=== PATIENT | female | born 1940 | race Caucasian/White ===

== ENCOUNTER → 2017-06-26 09:49 | Outpatient (CLI) | payer OTHER, MEDICARE, SELFPAY ==
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
== END ==
PROVIDERS: Family Provider Family Medicine; PCP Family Medicine; Visit Provider Family Medicine
DX: T14.8XXA Other injury of unspecified body region, initial encounter (principal); V89.2XXA Person injured in unspecified motor-vehicle accident, traffic, initial encounter
CPT/HCPCS: 76700

== ENCOUNTER → 2017-07-04 07:51 | Outpatient (CLI) | payer OTHER, MEDICARE, SELFPAY ==
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
[2017-07-04 08:11] LABS: CREATININE FINGERSTICK 1.2 mg/dL (0.55-1.02)
== END ==
PROVIDERS: Family Provider Family Medicine; PCP Family Medicine; Visit Provider Family Medicine
DX: R93.5 Abnormal findings on diagnostic imaging of other abdominal regions, including retroperitoneum (principal); Z01.812 Encounter for preprocedural laboratory examination
CPT/HCPCS: 74160; Q9967

== ENCOUNTER → 2017-08-04 10:57 | Outpatient (CLI) | payer MEDICARE, OTHER, SELFPAY ==
--- NOTE | 2017-08-04 11:03 | RAD_ITS ---
STUDY: X-RAY - LUMBAR SPINE REASON FOR EXAM: Female, 77 years old. Chronic low back pain TECHNIQUE: 5 view(s) of the lumbar spine were obtained. COMPARISON: X-ray 08/17/12 FINDINGS: There is dextroscoliosis. There is multilevel marked degenerative disc disease. There is no subluxation. There is no fracture. The SI joints are intact. There is calcification of the abdominal aorta. RAD/L/S Spine Min 4 Views IMPRESSION: Dextroscoliosis with marked multilevel degenerative disease Electronically Signed: James Hunter MD at 11:21 EDT Tel , Service support ,
== END ==
PROVIDERS: Family Provider Family Medicine; PCP Family Medicine; Visit Provider Anesthesiology Pain Medicine
DX: M54.5 Low back pain (principal)
CPT/HCPCS: 72110

== ENCOUNTER 2017-08-04 17:23 | Observation (INO) | payer MEDICARE, OTHER, SELFPAY ==
[2017-08-04 17:23] VITALS: BP 132/78; PULSE 123; RESP 20; TEMP 36.8; O2SAT 97; BMI 31.4
--- NOTE | 2017-08-04 17:53 | EKG12_ITS ---
Test Reason : SOB Blood Pressure : / mmHG Vent. Rate : 112 BPM Atrial Rate : 112 BPM P-R Int : 148 ms QRS Dur : 078 ms QT Int : 328 ms P-R-T Axes : 060 015 024 degrees QTc Int : 447 ms Sinus tachycardia Otherwise normal ECG Confirmed by ROSI LEA, ZARIA ([id number]), online content editor CORINNE CERRATO ([id number]) on 08/08/2017 1:39:40 PM Referred By: REUBEN Confirmed By:ZARIA ARANDA MD
--- NOTE | 2017-08-04 17:55 | RAD_ITS ---
STUDY: X-RAY CHEST REASON FOR EXAM: Female, 77 years old. Chest pain and shortness of breath. TECHNIQUE: Single AP portable view of the chest. COMPARISON: Prior chest radiograph of December 10, 2016 FINDINGS: The lungs are clear and expanded. There is no demonstrated pleural abnormality. Normal size heart. Normal mediastinum and brendan. Normal visualized pulmonary arteries. Normal visualized aortic arch and descending thoracic aorta. There are diffuse degenerative changes of the visualized thoracic spine. Normal visualized ribs, clavicles, and shoulders. There is no demonstrated abnormality of the visualized soft tissue structures of the upper abdomen. RAD/Chest 1 View (Portable) IMPRESSION: No acute cardiopulmonary findings or changes. Electronically Signed: Salma Meyers MD at 18:22 EDT , Service support ,
[2017-08-04] MEDS: Aspirin 81 MG TAB.CHEW 324 MG PO (18:06)
[2017-08-04 18:37] LABS: Absolute Lymphocyte Count 1.54 X10^3/ul (0.83-4.51); Absolute Neutrophil Count 10.2 X10^3/uL (2.0-7.7); Basophil# 0.01 X10^3/uL; Basophil% 0.1 % (0-1); Eosinophil# 0.15 X10^3/uL; Eosinophils% 1.2 % (0-5); Hematocrit 42.1 % (37-47); Hemoglobin 14.2 g/dl (12.0-15.0); Lymphocyte # 1.54 X10^3/ul (4.0); Lymphocyte % 11.9 % (19-41); Mean Corp Hgb Conc 33.7 g/gl (32-36); Mean Corpuscular Hgb 30.6 pg (27.0-32.0); Mean Corpuscular Volume 90.7 fL (81-99); Mean Platelet Vol. 9.5 fl (6.2-12.0); Monocyte# 0.93 X10^3/uL; Monocyte% 7.2 % (0-10); Neutrophil # 10.22 X10^3/uL (2.7-7.7); Neutrophil % 79.2 % (47-70); Platelet Count 216 K/mm3 (150-450); RBC Distribution Width CV 14.4 % (11.6-14.6); RBC Distribution Width SD 47.9 fl (35.1-43.9); Red Blood Count 4.64 M/mm3 (4.2-5.4); White Blood Count 12.9 K/mm3 (4.4-11.0)
[2017-08-04 18:38] LABS: POSITIVE COUNT NO; POSITIVE DIFFERENTIAL NO; POSITIVE MORPHOLOGY NO
[2017-08-04 18:55] LABS: D-Dimer Quantitative (DVT/PE) 0.77 FEU/ug/m (0.27-0.49)
[2017-08-04 19:01] LABS: Anion Gap 8 (5-15); BUN 33 mg/dL (7-18); BUN/Creat Ratio 24.6 RATIO (10-20); Calcium,Total 9.3 mg/dL (8.5-10.1); Chloride 106 mmol/L (98-107); Creatinine, Serum 1.34 mg/dL (0.55-1.02); EST Glomerular Filtration Rate 41 mL/min (>60); Est Glom Filt Rate - Afr Amer 49 mL/min (>60); Estimated Creatinine Clearance 27.81 ml/min; Glucose 148 mg/dL (74-106); Potassium 3.5 mmol/L (3.5-5.1); Sodium Level 141 mmol/L (136-145)
--- NOTE | 2017-08-04 19:11 | CT_ITS ---
STUDY: CTA CHEST REASON FOR EXAM: Female, 77 years old. Elevated d-dimer RADIATION DOSAGE (If Supplied By Facility): CTDIvol = ( 8.79 ) mGy, DLP = ( 273.75 ) mGycm TECHNIQUE: The examination was performed with the intravenous administration of 100 ml of Isovue 370 contrast material. Post-processing of the angiographic images was performed, with multiplanar reformation and 3D reconstruction. Individualized dose optimization techniques were used for this CT. COMPARISON: Chest radiograph from the same day FINDINGS: Normal enhancement of the main pulmonary artery and right and left pulmonary arteries without filling defects. Normal enhancement of the bilateral peripheral pulmonary arteries without evidence of filling defects. There are minimal vascular calcifications in the thoracic aorta. There is no demonstrated aortic dissection. The heart is normal in size. There are calcifications of the coronary arteries. There is a 1.2 cm nodule in the thyroid isthmus. The hilar regions are unremarkable. The airways are unremarkable. There are minimal increased lung markings in the dependent aspects of both lungs. There are no focal airspace opacities. There is no demonstrated pleural abnormality. The soft tissues are unremarkable. There are marked degenerative changes in the visualized spine. There are old rib fractures on the right. There is an old sternal fracture. There are no significant abnormalities in the visualized upper abdomen. CT/CTA Chest W/WO Contrast IMPRESSION: There is no evidence of pulmonary embolism, aortic aneurysm or aortic dissection. There is minimal dependent atelectasis in both lungs. There are no focal airspace opacities. There is no pleural effusion or significant lymphadenopathy. Electronically Signed: Damari Cao MD at 20:30 EDT Tel Direct: [phone], Service support ,
[2017-08-04 20:00] VITALS: BP 145/76; O2SAT 95
--- NOTE | 2017-08-04 21:31 | PCM.HP.STD ---
Problem List (1) Unstable angina Status: Acute (2) Chronic back pain Status: Chronic Qualifiers: Back pain location: low back pain Back pain laterality: unspecified Sciatica presence: unspecified whether sciatica present Qualified Code(s): M54.5 - Low back pain; G89.29 - Other chronic pain (3) CAD (coronary artery disease) Status: Chronic (4) Hyperlipidemia Status: Chronic (5) Hypertension Status: Chronic History of Present Illness Date of Admission: 08/04/17 Chief Complaint: chest pain The patient is a 77 year old F who is in her normal state of health but then started having chest pain beginning on the . Chest pain was worse with exertion, such as with activity and chores. Got better but not completely resolved with rest. Pain was midsternal and nonradiating. Patient states that she would also have some associated dizziness and no shortness of breath. Patient denies having any history of this in the past. Patient presented to the emergency room and had a d-dimer that was 0.77. Patient underwent a CT angiogram of the chest that showed no pulmonary embolism did show some dependent atelectasis. His chest pain is still there but much improved and she was experiencing with exertion. For the past week or so, patient has had an upper respiratory viral infection but had been improving during that time. [] Past Medical History Past Medical History (Chronic Problems): Chronic Problems Chronic back pain (Chronic) CAD (coronary artery disease) (Chronic) Hypertension (Chronic) Hyperlipidemia (Chronic) Allergies No Known Allergies Allergy (Verified 08/04/17 17:23) Home Medications: Ambulatory Orders Medication Instructions Recorded Alendronate Sodium 70 mg PO QWEEK 07/09/16 Atenolol [Tenormin] 25 mg PO DAILY 07/09/16 Isosorbide Mononitrate [Isosorbide 60 mg PO DAILY 07/09/16 Mononitrate ER] Amlodipine [Norvasc] 10 mg PO DAILY 12/10/16 Aspirin [Aspirin, Baby] 81 mg PO DAILY@0800 12/10/16 Benazepril HCl [Benazepril HCl] 40 mg PO DAILY 12/10/16 Hydrochlorothiazide [Hctz] 25 mg PO DAILY 12/10/16 Meloxicam [Meloxicam] 15 mg PO DAILY 12/10/16 Simvastatin 20 mg PO DAILY 12/10/16 Baclofen 5 - 10 mg PO QHS PRN 08/04/17 Hydrocodone Bitart/Apap 5-325 1 tablet PO BID PRN 08/04/17 [[place] 5MG-325MG] Surgical History: - - Ankle surgery for a fracture Psychiatric 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 Denies: Edema Respiratory: Reports: Shortness of breath upon exertion. Denies: Cough Gastrointestinal: Reports: Abdominal Pain - Did have some left lower quadrant abdominal pain but that is since resolved., Nausea. Denies: Vomiting Genitourinary: Denies: Dysuria, Hematuria Musculoskeletal: Denies: Joint Pain, Joint Tenderness Skin: Denies: Rash, Wounds Neurological: Denies: Numbness, Tingling, Focal weakness Psychiatric: Denies: Anxiety, Depression Endocrine: Denies: Change in Body Habitus, Heat/ Cold Intolerance Hematologic/ Lymphatic: Denies: Easy Bruising, Easy Bleeding, Hx of blood clot VTE Information - Inpt Only VTE Present on Admission: No VTE Pharm Prophylaxis ordered?: Yes Patient Problems: Active and Suspected Problems Unstable angina (Acute) - Physical Exam General: Alert, Cooperative, No apparent distress HEENT: Atraumatic, Normocephalic Neck: No Nodes, Thyroid Normal Size and Texture Lungs: Clear to auscultation, Normal air movement, No rhonchi, No wheeze Cardiovascular: Regular rate, Regular Rhythm, Normal S1, Normal S2, No murmurs Abdomen: Bowel Sounds Present, Soft, Non Tender, Non-Distended Extremities: No edema, No Calf Tenderness Skin: No rashes, No breakdown Musculoskeletal: No Tenderness to Palpation of Joints or Extremities, No Muscle Wasting Neurological: Neuro grossly intact, Muscle tone normal, - - No clonus Psych/Mental Status: Normal Affect, Appropriate, - - Did become tearful at one point during our encounter. Vital Signs Temp Pulse Resp BP Pulse Ox 36.8 C 123 H 20 H 145/76 H 95 08/04/17 17:23 08/04/17 17:23 08/04/17 17:23 08/04/17 20:00 08/04/17 20:00 Oxygen Delivery Method Room Air Weight: 77.836 kg Body Mass Index (BMI) 31.4 Laboratory Tests Past 24 Hrs 08/04/17 08/04/17 08/04/17 18:20 18:20 18:20 WBC 12.9 H RBC 4.64 Hgb 14.2 Hct 42.1 MCV 90.7 MCH 30.6 MCHC 33.7 RDW 14.4 RDW Differential 47.9 H Plt Count 216 MPV 9.5 Immature Gran % (Auto) 0.400 Neut % (Auto) 79.2 H Lymph % (Auto) 11.9 L [place] % (Auto) 7.2 Eos % (Auto) 1.2 Baso % (Auto) 0.1 Absolute Neuts (auto) 10.2 H Absolute Lymphs (auto) 1.54 Total Counted Not Reportable D-Dimer Quant (PE/DVT) 0.77 H* Sodium 141 Potassium 3.5 Chloride 106 Carbon Dioxide 27.0 Anion Gap 8 BUN 33 H Creatinine 1.34 H Estim Creat Clear Calc 27.81 Est GFR (MDRD) Af Amer 49 L Est GFR (MDRD) Non-Af 41 L BUN/Creatinine Ratio 24.6 H Glucose 148 H Calcium 9.3 Troponin I < 0.02 TSH 0.50 Clinical Impression(s) from Imaging Studies Chest X-Ray 08/04/17 17:55 IMPRESSION: No acute cardiopulmonary findings or changes. Electronically Signed: Salma Meyers MD at 18:22 EDT , Service support , Chest CTA 08/04/17 19:11 IMPRESSION: There is no evidence of pulmonary embolism, aortic aneurysm or aortic dissection. There is minimal dependent atelectasis in both lungs. There are no focal airspace opacities. There is no pleural effusion or significant lymphadenopathy. Electronically Signed: Damari Cao MD at 20:30 EDT Tel Direct: [phone], Service support , Assessment/Plan Active and Suspected Problems Unstable angina (Acute) 1. Unstable angina Patient improved and her workup, thus far has been negative Plan is for a stress test on the In the meantime, we will cycle troponins. Patient will have nitroglycerin as needed as well as morphine. Check lipid panel in the morning. She did receive aspirin in the emergency room. Patient takes aspirin 81 mg daily at home, which will be continued. 2. Chronic kidney disease stage III versus acute kidney injury Patient's creatinine is 1.34 with baseline appear to be 0.21 December 2016 Since patient did receive a contrast dye load for the CT angiogram, will give her some IV fluids. Reassess creatinine in the morning. 3. DVT prophylaxis will be with low molecular weight heparin. But will be initiated on the if patient's stress test is abnormal and requires further hospitalization. 4. Advanced directives Discussed CPR as well as tracheal intubation with the patient. Patient states that she wishes to be DNR Comfort Care arrest and is okay with short-term intubation. I told her that I will certainly order that and but I did recommend that she consider resending it if she does require a left heart catheterization for a potential of developing arrhythmia during her catheterization. She said that she would be okay with that if necessary. Code Visit OBSV E&M: 61096 Initial observation care L3
--- NOTE | 2017-08-04 21:39 | HP.PCM_ITS ---
Problem List (1) Unstable angina Status: Acute (2) Chronic back pain Status: Chronic Qualifiers: Back pain location: low back pain Back pain laterality: unspecified Sciatica presence: unspecified whether sciatica present Qualified Code(s): M54.5 - Low back pain; G89.29 - Other chronic pain (3) CAD (coronary artery disease) Status: Chronic (4) Hyperlipidemia Status: Chronic (5) Hypertension Status: Chronic History of Present Illness Date of Admission: 08/04/17 Chief Complaint: chest pain The patient is a 77 year old F who is in her normal state of health but then started having chest pain beginning on the . Chest pain was worse with exertion, such as with activity and chores. Got better but not completely resolved with rest. Pain was midsternal and nonradiating. Patient states that she would also have some associated dizziness and no shortness of breath. Patient denies having any history of this in the past. Patient presented to the emergency room and had a d-dimer that was 0.77. Patient underwent a CT angiogram of the chest that showed no pulmonary embolism did show some dependent atelectasis. His chest pain is still there but much improved and she was experiencing with exertion. For the past week or so, patient has had an upper respiratory viral infection but had been improving during that time. [] Past Medical History Past Medical History (Chronic Problems): Chronic Problems Chronic back pain (Chronic) CAD (coronary artery disease) (Chronic) Hypertension (Chronic) Hyperlipidemia (Chronic) Allergies No Known Allergies Allergy (Verified 08/04/17 17:23) Home Medications: Ambulatory Orders Medication Instructions Recorded Alendronate Sodium 70 mg PO QWEEK 07/09/16 Atenolol [Tenormin] 25 mg PO DAILY 07/09/16 Isosorbide Mononitrate [Isosorbide 60 mg PO DAILY 07/09/16 Mononitrate ER] Amlodipine [Norvasc] 10 mg PO DAILY 12/10/16 Aspirin [Aspirin, Baby] 81 mg PO DAILY@0800 12/10/16 Benazepril HCl [Benazepril HCl] 40 mg PO DAILY 12/10/16 Hydrochlorothiazide [Hctz] 25 mg PO DAILY 12/10/16 Meloxicam [Meloxicam] 15 mg PO DAILY 12/10/16 Simvastatin 20 mg PO DAILY 12/10/16 Baclofen 5 - 10 mg PO QHS PRN 08/04/17 Hydrocodone Bitart/Apap 5-325 1 tablet PO BID PRN 08/04/17 [[place] 5MG-325MG] Surgical History: - - Ankle surgery for a fracture Psychiatric History: 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 Denies: Edema Respiratory: Reports: Shortness of breath upon exertion. Denies: Cough Gastrointestinal: Reports: Abdominal Pain - Did have some left lower quadrant abdominal pain but that is since resolved., Nausea. Denies: Vomiting Genitourinary: Denies: Dysuria, Hematuria Musculoskeletal: Denies: Joint Pain, Joint Tenderness Skin: Denies: Rash, Wounds Neurological: Denies: Numbness, Tingling, Focal weakness Psychiatric: Denies: Anxiety, Depression Endocrine: Denies: Change in Body Habitus, Heat/ Cold Intolerance Hematologic/ Lymphatic: Denies: Easy Bruising, Easy Bleeding, Hx of blood clot VTE Information - Inpt Only VTE Present on Admission: No VTE Pharm Prophylaxis ordered?: Yes Patient Problems: Active and Suspected Problems Unstable angina (Acute) - Physical Exam General: Alert, Cooperative, No apparent distress HEENT: Atraumatic, Normocephalic Neck: No Nodes, Thyroid Normal Size and Texture Lungs: Clear to auscultation, Normal air movement, No rhonchi, No wheeze Cardiovascular: Regular rate, Regular Rhythm, Normal S1, Normal S2, No murmurs Abdomen: Bowel Sounds Present, Soft, Non Tender, Non-Distended Extremities: No edema, No Calf Tenderness Skin: No rashes, No breakdown Musculoskeletal: No Tenderness to Palpation of Joints or Extremities, No Muscle Wasting Neurological: Neuro grossly intact, Muscle tone normal, - - No clonus Psych/Mental Status: Normal Affect, Appropriate, - - Did become tearful at one point during our encounter. Vital Signs Temp Pulse Resp BP Pulse Ox 36.8 C 123 H 20 H 145/76 H 95 08/04/17 17:23 08/04/17 17:23 08/04/17 17:23 08/04/17 20:00 08/04/17 20:00 Oxygen Delivery Method Room Air Weight: 77.836 kg Body Mass Index (BMI) 31.4 Laboratory Tests Past 24 Hrs 08/04/17 08/04/17 08/04/17 18:20 18:20 18:20 WBC 12.9 H RBC 4.64 Hgb 14.2 Hct 42.1 MCV 90.7 MCH 30.6 MCHC 33.7 RDW 14.4 RDW Differential 47.9 H Plt Count 216 MPV 9.5 Immature Gran % (Auto) 0.400 Neut % (Auto) 79.2 H Lymph % (Auto) 11.9 L [place] % (Auto) 7.2 Eos % (Auto) 1.2 Baso % (Auto) 0.1 Absolute Neuts (auto) 10.2 H Absolute Lymphs (auto) 1.54 Total Counted Not Reportable D-Dimer Quant (PE/DVT) 0.77 H* Sodium 141 Potassium 3.5 Chloride 106 Carbon Dioxide 27.0 Anion Gap 8 BUN 33 H Creatinine 1.34 H Estim Creat Clear Calc 27.81 Est GFR (MDRD) Af Amer 49 L Est GFR (MDRD) Non-Af 41 L BUN/Creatinine Ratio 24.6 H Glucose 148 H Calcium 9.3 Troponin I < 0.02 TSH 0.50 Clinical Impression(s) from Imaging Studies Chest X-Ray 08/04/17 17:55 IMPRESSION: No acute cardiopulmonary findings or changes. Electronically Signed: Salma Meyers MD at 18:22 EDT , Service support , Chest CTA 08/04/17 19:11 IMPRESSION: There is no evidence of pulmonary embolism, aortic aneurysm or aortic dissection. There is minimal dependent atelectasis in both lungs. There are no focal airspace opacities. There is no pleural effusion or significant lymphadenopathy. Electronically Signed: Damari Cao MD at 20:30 EDT Tel Direct: [phone], Service support , Assessment/Plan Active and Suspected Problems Unstable angina (Acute) 1. Unstable angina * Patient improved and her workup, thus far has been negative * Plan is for a stress test on the * In the meantime, we will cycle troponins. Patient will have nitroglycerin as needed as well as morphine. * Check lipid panel in the morning. * She did receive aspirin in the emergency room. Patient takes aspirin 81 mg daily at home, which will be continued. 2. Chronic kidney disease stage III versus acute kidney injury * Patient's creatinine is 1.34 with baseline appear to be 0.21 December 2016 * Since patient did receive a contrast dye load for the CT angiogram, will give her some IV fluids. * Reassess creatinine in the morning. 3. DVT prophylaxis * will be with low molecular weight heparin. But will be initiated on the if patient's stress test is abnormal and requires further hospitalization. 4. Advanced directives * Discussed CPR as well as tracheal intubation with the patient. Patient states that she wishes to be DNR Comfort Care arrest and is okay with short- term intubation. I told her that I will certainly order that and but I did recommend that she consider resending it if she does require a left heart catheterization for a potential of developing arrhythmia during her catheterization. She said that she would be okay with that if necessary. Code Visit OBSV E&M: 37175 Initial observation care L3
[2017-08-04 22:35] VITALS: BP 153/77; PULSE 93; RESP 16; TEMP 36.8; O2SAT 98
[2017-08-04 22:37] VITALS: BP 155/72
[2017-08-04 22:41] VITALS: BMI 30.9
[2017-08-04 22:52] VITALS: BMI 30.9
[2017-08-04 23:08] VITALS: PULSE 96
[2017-08-04] MEDS: 0.9% NaCl Peripheral Flush Adult/Peds IV (23:36)
[2017-08-04] MEDS: Potassium Chloride 40 MEQ in 0.45% Normal Saline 1,000 ML 125 MEQ IV (23:37)
--- NOTE | 2017-08-05 00:58 | ED.VISSUMM ---
- ER Visit Summary Date of Service: 08/05/17 Chief Complaint: Chest pain shortness of breath History of Present Illness: The patient is a 77 F presenting for evaluation secondary chest pain shortness of breath. Patient states that she had a recent history of respiratory illness. She was placed on prednisone and azithromycin did have some improvement. Patient states however since yesterday she has been having exertional chest pain that she describes as a heaviness that is also associated with shortness of breath. This seems to improve with rest. Patient denies that she has any sort of history of DVT PE recent immobilization hemoptysis or exogenous hormone use. She does have prior history of coronary disease with a stent in the past. Patient has not had a recent stress test. Review of systems otherwise negative. Physical Examination: Vital signs are within normal limits except for tachycardia with a rate of 123 on presentation, patient is afebrile. General: Patient is well-nourished well-developed and in no acute distress. Head: Normocephalic, atraumatic Eyes: Pupils equal round and reactive bilaterally, extra occular motion intact bialterally ENT: Moist mucous membranes Neck: Supple, no lymphadenopathy, no JVD, no meningismus CVS: Heart regular rhythm and tachycardic, no murmurs, rubs or gallops, radial pulses 2+ bilaterally Resp: Respirations nondistressed, lung sounds clear bilaterally Abdomen: Soft, nontender, nondistended, no palpable masses, normal bowel sounds Back: Nontender Extremities: Nontender, atraumatic, active full range of motion, no peripheral edema, calves are supple no palpable cord Skin: warm, no rashes, no petechia Neuro: Alert and oriented x 4, CN 2-12 intact, no lateralizing neurological defecits Psyc: Normal affect Test Results: EKG shows a sinus tachycardia with a rate of 112 no evidence of right ventricular strain, normal ST segments and T waves. No significant change from prior EKG. CBC shows leukocytosis of 12.9, chemistry shows mildly elevated creatinine 1.3, d-dimer 0.77, troponin negative. Chest x-rays negative per radiology, CT angiogram is negative per radiology Emergency Department Course and Treatment: Patient presented for evaluation secondary to exertional chest pain and shortness of breath. She was evaluated from a cardiac standpoint as her symptomatology seemed very concerning for the possibility of cardiac chest pain. Patient's workup was found to be negative for d-dimer was borderline for her age, so given the tachycardia a CT angiogram was performed and was found to be negative. At this point I do believe that the patient requires admission for a rule out cardiac workup. Patient's HOLDEN risk score is 4. Patient will be admitted under the hospitalist. She was pain-free on repeat evaluation. Disposition: Admission Impression: 1. Exertional chest pain This note was generated with [employer] dictation software. It may contain incorrect words, spelling, and punctuation that were not noted in review of the chart prior to signing ED Disposition - Plan for ED Patient: Disposition: Acute Care Hospital [facility] Chief Complaint: Shortness of Breath
--- NOTE | 2017-08-05 01:03 | ED.DCSUM_ITS ---
- ER Visit Summary Date of Service: 08/05/17 Chief Complaint: Chest pain shortness of breath History of Present Illness: The patient is a 77 F presenting for evaluation secondary chest pain shortness of breath. Patient states that she had a recent history of respiratory illness. She was placed on prednisone and azithromycin did have some improvement. Patient states however since yesterday she has been having exertional chest pain that she describes as a heaviness that is also associated with shortness of breath. This seems to improve with rest. Patient denies that she has any sort of history of DVT PE recent immobilization hemoptysis or exogenous hormone use. She does have prior history of coronary disease with a stent in the past. Patient has not had a recent stress test. Review of systems otherwise negative. Physical Examination: Vital signs are within normal limits except for tachycardia with a rate of 123 on presentation, patient is afebrile. General: Patient is well-nourished well-developed and in no acute distress. Head: Normocephalic, atraumatic Eyes: Pupils equal round and reactive bilaterally, extra occular motion intact bialterally ENT: Moist mucous membranes Neck: Supple, no lymphadenopathy, no JVD, no meningismus CVS: Heart regular rhythm and tachycardic, no murmurs, rubs or gallops, radial pulses 2+ bilaterally Resp: Respirations nondistressed, lung sounds clear bilaterally Abdomen: Soft, nontender, nondistended, no palpable masses, normal bowel sounds Back: Nontender Extremities: Nontender, atraumatic, active full range of motion, no peripheral edema, calves are supple no palpable cord Skin: warm, no rashes, no petechia Neuro: Alert and oriented x 4, CN 2-12 intact, no lateralizing neurological defecits Psyc: Normal affect Test Results: EKG shows a sinus tachycardia with a rate of 112 no evidence of right ventricular strain, normal ST segments and T waves. No significant change from prior EKG. CBC shows leukocytosis of 12.9, chemistry shows mildly elevated creatinine 1.3, d-dimer 0.77, troponin negative. Chest x-rays negative per radiology, CT angiogram is negative per radiology Emergency Department Course and Treatment: Patient presented for evaluation secondary to exertional chest pain and shortness of breath. She was evaluated from a cardiac standpoint as her symptomatology seemed very concerning for the possibility of cardiac chest pain. Patient's workup was found to be negative for d-dimer was borderline for her age, so given the tachycardia a CT angiogram was performed and was found to be negative. At this point I do believe that the patient requires admission for a rule out cardiac workup. Patient's HOLDEN risk score is 4. Patient will be admitted under the hospitalist. She was pain- free on repeat evaluation. Disposition: Admission Impression: 1. Exertional chest pain This note was generated with [employer] dictation software. It may contain incorrect words, spelling, and punctuation that were not noted in review of the chart prior to signing ED Disposition - Plan for ED Patient: Disposition: Acute Care Hospital [facility] Chief Complaint: Shortness of Breath
[2017-08-05 03:03] VITALS: PULSE 88
[2017-08-05 04:35] VITALS: BP 130/52; PULSE 84; RESP 16; TEMP 36.8; O2SAT 96
--- NOTE | 2017-08-05 05:55 | EKG12_ITS ---
Test Reason : AM EKG Blood Pressure : / mmHG Vent. Rate : 080 BPM Atrial Rate : 080 BPM P-R Int : 150 ms QRS Dur : 070 ms QT Int : 368 ms P-R-T Axes : 069 048 029 degrees QTc Int : 424 ms Normal sinus rhythm Normal ECG When compared with ECG of 04-AUG-2017 18:02, MANUAL COMPARISON REQUIRED, DATA IS UNCONFIRMED Confirmed by ROSI LEA, ZARIA ([id number]), publishing editor CORINNE CERRATO ([id number]) on 08/10/2017 3:40:00 PM Referred By: PARIS Confirmed By:ZARIA ARANDA MD
[2017-08-05 06:21] LABS: International Normalized Ratio 0.9; Prothrombin Time (Protime)PT. 12.2 SECONDS (11.7-14.9)
[2017-08-05 06:22] LABS: Partial Thromboplast Time 36.2 Seconds (24.1-36.2)
[2017-08-05] MEDS: Aspirin 81 MG TAB.CHEW PO (06:36)
[2017-08-05] MEDS: Lisinopril 40 MG Tablet PO (06:37)
[2017-08-05 06:57] LABS: Anion Gap 9 (5-15); BUN 26 mg/dL (7-18); BUN/Creat Ratio 29.7 RATIO (10-20); Calcium,Total 8.9 mg/dL (8.5-10.1); Chloride 106 mmol/L (98-107); Cholesterol 165 mg/dL (200); Creatinine, Serum 0.87 mg/dL (0.55-1.02); EST Glomerular Filtration Rate 67 mL/min (>60); Est Glom Filt Rate - Afr Amer 81 mL/min (>60); Estimated Creatinine Clearance 42.83 ml/min; Glucose 117 mg/dL (74-106); High Density Lipoprotein 60 mg/dL; Potassium 4.2 mmol/L (3.5-5.1); Sodium Level 141 mmol/L (136-145); Triglycerides 107 mg/dL; Very Low Density Lipoprotein 21 mg/dL (5-40)
[2017-08-05 07:01] VITALS: PULSE 109
[2017-08-05 11:32] VITALS: PULSE 94
--- NOTE | 2017-08-05 11:38 | STRESSREP ---
Stress Test Report Pharmacologic myocardial perfusion stress test. 77-year-old lady with a history of chest pain. Stress protocol: Resting EKG demonstrates normal sinus rhythm with rate of 85 bpm normal intervals and noted resting blood pressure is 152/84 mmHg. The maximum heart rate attained was 131 bpm which was 60% of the maximum predicted heart rate the maximum workload attained was 1 metabolic equivalent. The patient maintained sinus rhythm throughout the recording. At rest there were no ST or T-wave changes noted suggest ischemia at peak infusion no ST or T-wave changes were noted suggest ischemia. The resting blood pressure is 152/84 with a final blood pressure 142/80 mmHg. Myocardial perfusion protocol. 12.0 mCi of technetium 99m sestamibi was injected at rest. 0.4 mg of regadenoson was infused per usual protocol. At peak infusion 35.9 mCi of technetium 99m sestamibi was injected. Stress images were obtained. Stress and rest images were reconstructed and compared in the short axis vertical long and horizontal long axis. Gated images were also obtained. Perfusion SPECT analysis: Review of the stress images demonstrate normal uptake of tracer noted in all areas of the myocardium. The resting images similarly demonstrate normal uptake of tracer noted in all areas of the myocardium. No reversibility is noted suggest ischemia and no previous infarct is noted. Gated SPECT analysis. The gated ejection fraction is 81%. Conclusion: Normal pharmacologic myocardial perfusion stress test. Preserved ejection fraction.
--- NOTE | 2017-08-05 12:06 | PCM.DC ---
- Discharge Diagnoses Current Active Problems: Current Active and Chronic Problems Unstable angina (Acute) Chronic back pain (Chronic) You will use the following diet at home:: Cardiac Your food should be the consistency of: Regular Discharge Activity: Return to Normal Activity Weight Bearing Status: Full weight bearing Call your doctor if you observe: Fever of 101 or Higher, Shortness of breath, Dizziness, Fainting spells, Chest pain, Increased palpitations (irregular heartbeat), Uncontrolled pain Allergies/Adverse Reactions: Allergies No Known Allergies Allergy (Verified 08/04/17 17:23) Medications to take at Discharge Alendronate Sodium 70 mg PO QWEEK 07/09/16 Atenolol [Tenormin] 25 mg PO DAILY 07/09/16 Isosorbide Mononitrate [Isosorbide Mononitrate ER] 60 mg PO DAILY 07/09/16 Amlodipine [Norvasc] 10 mg PO DAILY 12/10/16 Aspirin [Aspirin, Baby] 81 mg PO DAILY@0800 12/10/16 Benazepril HCl 40 mg PO DAILY 12/10/16 Hydrochlorothiazide [Hctz] 25 mg PO DAILY 12/10/16 Meloxicam 15 mg PO DAILY 12/10/16 Simvastatin 20 mg PO QHS 12/10/16 Baclofen 5 - 10 mg PO QHS PRN 08/04/17 Hydrocodone Bitart/Apap 5-325 [Kinmundy 5/325] 1 tablet PO BID PRN 08/04/17 Pantoprazole Sodium [Protonix] 40 mg PO DAILY #14 tab 08/05/17 The following prescriptions were given: Pantoprazole Sodium [Protonix] 40 mg PO DAILY #14 tab Primary Care Physician: Stephanie Partida DO [Primary Care Provider] - Please follow up with your Primary Care Physician in: 2-4 weeks.
[2017-08-05 12:21] VITALS: BP 147/77; PULSE 90; RESP 16; TEMP 37.1; O2SAT 97
[2017-08-05] MEDS: Meloxicam 15 MG Tablet PO (12:29)
[2017-08-05] MEDS: Isosorbide Mononitrate 60 MG Tablet PO (12:29)
[2017-08-05] MEDS: hydroCHLOROthiazide 25 MG Tablet PO (12:29)
[2017-08-05] MEDS: Atenolol 25 MG Tablet PO (12:29)
[2017-08-05] MEDS: amLODIPine 10 MG Tablet PO (12:29)
--- NOTE | 2017-08-05 15:32 | PCM.DC.SUM ---
Discharge Date and Diagnosis Date of Admission: 08/04/17 Date of Discharge: 08/05/17 - Primary Discharge Diagnosis Chest pain, negative cardiac workup including a stress test. - Secondary Discharge Diagnosis Chronic Problems Chronic back pain (Chronic) CAD (coronary artery disease) (Chronic) Hypertension (Chronic) Hyperlipidemia (Chronic) Hospital Course and Treatment Imaging Results: Clinical Impression(s) from Imaging Studies Chest X-Ray 08/04/17 17:55 IMPRESSION: No acute cardiopulmonary findings or changes. Electronically Signed: Salma Meyers MD at 18:22 EDT , Service support , Chest CTA 08/04/17 19:11 IMPRESSION: There is no evidence of pulmonary embolism, aortic aneurysm or aortic dissection. There is minimal dependent atelectasis in both lungs. There are no focal airspace opacities. There is no pleural effusion or significant lymphadenopathy. Electronically Signed: Damari Cao MD at 20:30 EDT Tel Direct: [phone], Service support , Operations: None Procedures: EKG, Stress test Summary of Care Provided: Patient seen and examined on the day of discharge before she went for stress test. She mentioned that her chest pain is gone but she has been having intermittent chest pressure upon sitting. She reported chronic heartburn and probable reflux. She denied shortness of breath, palpitation, dizziness or lightheadedness. Vital signs are stable. - Physical Exam General: Alert, Oriented x3, Cooperative, No apparent distress. HEENT: Atraumatic, PERRLA, EOMI. Neck: Supple, No JVD, Negative Carotid Bruits, Trachea Midline, Thyroid Normal. Lungs: Clear to auscultation, Normal air movement, No rhonchi, No wheeze, No rales. Cardiovascular: Regular rate, Regular Rhythm, Normal S1, Normal S2, PMI Normal. Abdomen: Bowel Sounds Present, Soft, Non Tender, Non-Distended, No Hepato-splenomegaly. Extremities: No clubbing, No cyanosis, No edema Skin: No rashes, No breakdown Neurological: Neuro grossly intact Vital Signs are stable. Hospital course: The patient is a 77 year old F admitted because of chest pain for evaluation. Her EKG revealed normal sinus rhythm without evidence of acute ischemic changes. Her troponin was negative ?3. A chest x-ray showed no acute findings. D-dimer was elevated for which CTA chest done and revealed no evidence of acute PE or dissection. Her routine blood work was remarkable for creatinine of 1.3 which came down to 0.87 with IV fluids. She underwent nuclear stress test that was reported as negative without evidence of stress-induced ischemia and with preserved ejection fraction. Patient did complain of occasional heartburn and her chest pain could be due to GERD. Acute coronary syndrome ruled out. Patient discharged home in a stable medical condition, discharged on her chronic home medication without any changes, started on Protonix 40 mg p.o. daily, recommended follow-up with PCP in 2-4 weeks. Discharge Activity: Return to Normal Activity Weight Bearing Status: Full weight bearing Call your doctor if you observe: Fever of 101 or Higher, Shortness of breath, Dizziness, Fainting spells, Chest pain, Increased palpitations (irregular heartbeat), Uncontrolled pain Home Medications: Medications to take at Discharge Alendronate Sodium 70 mg PO QWEEK 07/09/16 Atenolol [Tenormin] 25 mg PO DAILY 07/09/16 Isosorbide Mononitrate [Isosorbide Mononitrate ER] 60 mg PO DAILY 07/09/16 Amlodipine [Norvasc] 10 mg PO DAILY 12/10/16 Aspirin [Aspirin, Baby] 81 mg PO DAILY@0800 12/10/16 Benazepril HCl 40 mg PO DAILY 12/10/16 Hydrochlorothiazide [Hctz] 25 mg PO DAILY 12/10/16 Meloxicam 15 mg PO DAILY 12/10/16 Simvastatin 20 mg PO QHS 12/10/16 Baclofen 5 - 10 mg PO QHS PRN 08/04/17 Hydrocodone Bitart/Apap 5-325 [Wolcott 5/325] 1 tablet PO BID PRN 08/04/17 Pantoprazole Sodium [Protonix] 40 mg PO DAILY #14 tab 08/05/17 Following Prescrptions Were Given to Patient: Pantoprazole Sodium [Protonix] 40 mg PO DAILY #14 tab Primary Care Physician: Stephanie Partida DO [Primary Care Provider] - Please follow up with your Primary Care Physician in: 2-4 weeks. Disposition: Home Minutes spent on discharge:: 25 Patient Condition:: Stable Medical Necessity - Tobacco Use Smoking Status: Former smoker Tobacco Use: Non-smoker Meaningful Use Info Meaningful Use Diagnoses (Choose all that apply): None applicable Code Visit OBSV E&M: 77607 Observation care discharge
--- NOTE | 2017-08-05 15:36 | DS.PCM_ITS ---
Discharge Date and Diagnosis Date of Admission: 08/04/17 Date of Discharge: 08/05/17 - Primary Discharge Diagnosis Chest pain, negative cardiac workup including a stress test. - Secondary Discharge Diagnosis Chronic Problems Chronic back pain (Chronic) CAD (coronary artery disease) (Chronic) Hypertension (Chronic) Hyperlipidemia (Chronic) Hospital Course and Treatment Imaging Results: Clinical Impression(s) from Imaging Studies Chest X-Ray 08/04/17 17:55 IMPRESSION: No acute cardiopulmonary findings or changes. Electronically Signed: Salma Meyers MD at 18:22 EDT , Service support , Chest CTA 08/04/17 19:11 IMPRESSION: There is no evidence of pulmonary embolism, aortic aneurysm or aortic dissection. There is minimal dependent atelectasis in both lungs. There are no focal airspace opacities. There is no pleural effusion or significant lymphadenopathy. Electronically Signed: Damari Cao MD at 20:30 EDT Tel Direct: [phone], Service support , Operations: None Procedures: EKG, Stress test Summary of Care Provided: Patient seen and examined on the day of discharge before she went for stress test. She mentioned that her chest pain is gone but she has been having intermittent chest pressure upon sitting. She reported chronic heartburn and probable reflux. She denied shortness of breath, palpitation, dizziness or lightheadedness. Vital signs are stable. - Physical Exam General: Alert, Oriented x3, Cooperative, No apparent distress. HEENT: Atraumatic, PERRLA, EOMI. Neck: Supple, No JVD, Negative Carotid Bruits, Trachea Midline, Thyroid Normal. Lungs: Clear to auscultation, Normal air movement, No rhonchi, No wheeze, No rales. Cardiovascular: Regular rate, Regular Rhythm, Normal S1, Normal S2, PMI Normal. Abdomen: Bowel Sounds Present, Soft, Non Tender, Non-Distended, No Hepato- splenomegaly. Extremities: No clubbing, No cyanosis, No edema Skin: No rashes, No breakdown Neurological: Neuro grossly intact Vital Signs are stable. Hospital course: The patient is a 77 year old F admitted because of chest pain for evaluation. Her EKG revealed normal sinus rhythm without evidence of acute ischemic changes. Her troponin was negative ?3. A chest x-ray showed no acute findings. D-dimer was elevated for which CTA chest done and revealed no evidence of acute PE or dissection. Her routine blood work was remarkable for creatinine of 1.3 which came down to 0.87 with IV fluids. She underwent nuclear stress test that was reported as negative without evidence of stress- induced ischemia and with preserved ejection fraction. Patient did complain of occasional heartburn and her chest pain could be due to GERD. Acute coronary syndrome ruled out. Patient discharged home in a stable medical condition, discharged on her chronic home medication without any changes, started on Protonix 40 mg p.o. daily, recommended follow-up with PCP in 2-4 weeks. Discharge Activity: Return to Normal Activity Weight Bearing Status: Full weight bearing Call your doctor if you observe: Fever of 101 or Higher, Shortness of breath, Dizziness, Fainting spells, Chest pain, Increased palpitations (irregular heartbeat), Uncontrolled pain Home Medications: Medications to take at Discharge Alendronate Sodium 70 mg PO QWEEK 07/09/16 Atenolol [Tenormin] 25 mg PO DAILY 07/09/16 Isosorbide Mononitrate [Isosorbide Mononitrate ER] 60 mg PO DAILY 07/09/16 Amlodipine [Norvasc] 10 mg PO DAILY 12/10/16 Aspirin [Aspirin, Baby] 81 mg PO DAILY@0800 12/10/16 Benazepril HCl 40 mg PO DAILY 12/10/16 Hydrochlorothiazide [Hctz] 25 mg PO DAILY 12/10/16 Meloxicam 15 mg PO DAILY 12/10/16 Simvastatin 20 mg PO QHS 12/10/16 Baclofen 5 - 10 mg PO QHS PRN 08/04/17 Hydrocodone Bitart/Apap 5-325 [Kerrick 5/325] 1 tablet PO BID PRN 08/04/17 Pantoprazole Sodium [Protonix] 40 mg PO DAILY #14 tab 08/05/17 Following Prescrptions Were Given to Patient: Pantoprazole Sodium [Protonix] 40 mg PO DAILY #14 tab Primary Care Physician: Stephanie Partida DO [Primary Care Provider] - Please follow up with your Primary Care Physician in: 2-4 weeks. Disposition: Home Minutes spent on discharge:: 25 Patient Condition:: Stable Medical Necessity - Tobacco Use Smoking Status: Former smoker Tobacco Use: Non-smoker Meaningful Use Info Meaningful Use Diagnoses (Choose all that apply): None applicable Code Visit OBSV E&M: 48234 Observation care discharge
== END 2017-08-05 14:30 | disposition home or self-care (01) ==
LOC: ED 20:02 → PCU 21:33
PROVIDERS: Emergency Provider Emergency Medicine; Family Provider Family Medicine; PCP Family Medicine; Visit Provider Hospitalist
DX: R07.89 Other chest pain (principal); R06.02 Shortness of breath; R00.0 Tachycardia, unspecified; I25.10 Atherosclerotic heart disease of native coronary artery without angina pectoris; G89.29 Other chronic pain; M54.9 Dorsalgia, unspecified; I10 Essential (primary) hypertension; E78.5 Hyperlipidemia, unspecified; M54.5 Low back pain; R42 Dizziness and giddiness; Z86.718 Personal history of other venous thrombosis and embolism; Z86.711 Personal history of pulmonary embolism; Z79.899 Other long term (current) drug therapy; Z79.82 Long term (current) use of aspirin
CPT/HCPCS: 36415; 71045; 71275; 72110; 78452; 80048; 80061; 84443; 84484; 85025; 85379; 85610; 85730; 93005; 93017; 94667; 94668; 96360; 96361; 99218; 99285; A9500; Q9967; A4216; G0378; J2785

== ENCOUNTER → 2018-02-02 10:51 | Outpatient (CLI) | payer MEDICARE, OTHER, SELFPAY ==
--- NOTE | 2018-02-02 10:58 | RAD_ITS ---
STUDY: X-RAY - LEFT KNEE REASON FOR EXAM: Female, 77 years old. Pain TECHNIQUE: 3 view(s) of the knee. COMPARISON: None. FINDINGS: Normal visualized distal femur. Normal visualized proximal tibia and fibula. Normal proximal tibiofibular articulation. There is no demonstrated fracture. There is mild degenerative arthrosis of the medial femorotibial compartment. There is mild degenerative arthrosis of the lateral femorotibial compartment. There is mild degenerative arthrosis of the patellofemoral articulation. There is chondrocalcinosis. The soft tissue structures are unremarkable. RAD/Knee 3 Views IMPRESSION: Arthritic change with chondrocalcinosis. Electronically Signed: Ronal Montano MD at 10:59 EDT , Service support ,
== END ==
PROVIDERS: Family Provider Family Medicine; PCP Family Medicine; Visit Provider Nurse Practitioner Family
DX: M25.562 Pain in left knee (principal)
CPT/HCPCS: 73562

== ENCOUNTER → 2018-04-16 10:55 | Outpatient (CLI) | payer MEDICARE, OTHER, SELFPAY ==
--- NOTE | 2018-04-16 11:01 | RAD_ITS ---
STUDY: X-RAY - RIGHT HUMERUS REASON FOR EXAM: Female, 77 years old. Pain. Soft tissue mass in the posterior arm. TECHNIQUE: 2 view(s) of the humerus. COMPARISON: None. FINDINGS: Normal visualized humerus. There is no demonstrated fracture or osseous destructive process. There are degenerative changes of the shoulder and elbow. There is no demonstrated soft tissue abnormality. There is no foreign body. RAD/Humerus min 2 Views IMPRESSION: Degenerative changes of the shoulder and elbow without acute humeral abnormality. Electronically Signed: Sean Peoples DO at 16:38 EST Tel [phone], Service support ,
--- OUTSIDE RECORDS SUMMARY | 2018-06-09 16:41 | XMS RPT_ITS ---
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 CTA chest done and revealed no evidence of acute PE or dissection. Her routine blood work was remarkable for creatinine of 1.3 which came down to 0.87 with IV fluids. She underwent nuclear stress test that was reported as negative without evidence of stress-induced ischemia and with preserved ejection fraction. Patient did complain of occasional heartburn and her chest pain could be due to GERD. Acute coronary syndrome ruled out. Patient discharged home in a stable medical condition, discharged on her chronic home medication without any changes, started on Protonix 40 mg p.o. daily, recommended follow-up with PCP in 2-4 weeks. Discharge Activity: Return to Normal Activity Weight Bearing Status: Full weight bearing Call your doctor if you observe: Fever of 101 or Higher, Shortness of breath, Dizziness, Fainting spells, Chest pain, Increased palpitations (irregular heartbeat), Uncontrolled pain Home Medications: Medications to take at Discharge Alendronate Sodium 70 mg PO QWEEK 07/09/16 Atenolol [Tenormin] 25 mg PO DAILY 07/09/16 Isosorbide Mononitrate [Isosorbide Mononitrate ER] 60 mg PO DAILY 07/09/16 Amlodipine [Norvasc] 10 mg PO DAILY 12/10/16 Aspirin [Aspirin, Baby] 81 mg PO DAILY@0800 12/10/16 Benazepril HCl 40 mg PO DAILY 12/10/16 Hydrochlorothiazide [Hctz] 25 mg PO DAILY 12/10/16 Meloxicam 15 mg PO DAILY 12/10/16 Simvastatin 20 mg PO QHS 12/10/16 Baclofen 5 - 10 mg PO QHS PRN 08/04/17 Hydrocodone Bitart/Apap 5-325 [[place] 5/325] 1 tablet PO BID PRN 08/04/17 Pantoprazole Sodium [Protonix] 40 mg PO DAILY #14 tab 08/05/17 Following Prescrptions Were Given to Patient: Pantoprazole Sodium [Protonix] 40 mg PO DAILY #14 tab Primary Care Physician: Stephanie Partida DO [Primary Care Provider] - Please follow up with your Primary Care Physician in: 2-4 weeks. Disposition: Home Minutes spent on discharge:: 25 Patient Condition:: Stable Medical Necessity - Tobacco Use Smoking Status: Former smoker Tobacco Use: Non-smoker Meaningful Use Info Meaningful Use Diagnoses (Choose all that apply): None applicable Code Visit OBSV E AND M: 31656 Observation care discharge 08/05/17 1536 <Electronically signed by Williams Shaver MD> Date Williams Shaver MD Cosigner Signature (if applicable): Date CC: Williams Shaver; Stephanie Partida DO Signed DISCHARGE INSTRUCTION Observed: 08/05/2017 Status: F Source: [place] 12:07 PM [facility] Medical Records Department [address] [place] [address] Instructions for Home/Discharge Instructions 08/05/17 1206 MR#: [id number] Acct: [id number] Name: GABRIELA GAMBOA Rep #: [id number] : 1940 77 From: Williams Shaver MD PCP: Stephanie Partida DO Status: ADM PRESTON - Discharge Diagnoses Current Active Problems: Current Active and Chronic Problems Unstable angina (Acute) Chronic back pain (Chronic) You will use the following diet at home:: Cardiac Your food should be the consistency of: Regular Discharge Activity: Return to Normal Activity Weight Bearing Status: Full weight bearing Call your doctor if you observe: Fever of 101 or Higher, Shortness of breath, Dizziness, Fainting spells, Chest pain, Increased palpitations (irregular heartbeat), Uncontrolled pain Allergies/Adverse Reactions: Allergies No Known Allergies Allergy (Verified 08/04/17 17:23) Medications to take at Discharge Alendronate Sodium 70 mg PO QWEEK 07/09/16 Atenolol [Tenormin] 25 mg PO DAILY 07/09/16 Isosorbide Mononitrate [Isosorbide Mononitrate ER] 60 mg PO DAILY 07/09/16 Amlodipine [Norvasc] 10 mg PO DAILY 12/10/16 Aspirin [Aspirin, Baby] 81 mg PO DAILY@0800 12/10/16 Benazepril HCl 40 mg PO DAILY 12/10/16 Hydrochlorothiazide [Hctz] 25 mg PO DAILY 12/10/16 Meloxicam 15 mg PO DAILY 12/10/16 Simvastatin 20 mg PO QHS 12/10/16 Baclofen 5 - 10 mg PO QHS PRN 08/04/17 Hydrocodone Bitart/Apap 5-325 [[place] 5/325] 1 tablet PO BID PRN 08/04/17 Pantoprazole Sodium [Protonix] 40 mg PO DAILY #14 tab 08/05/17 The following prescriptions were given: Pantoprazole Sodium [Protonix] 40 mg PO DAILY #14 tab Primary Care Physician: Stephanie Partida DO [Primary Care Provider] - Please follow up with your Primary Care Physician in: 2-4 weeks. 08/05/17 1207 <Electronically signed by Williams Shaver MD> Date Williams Shaver MD CC: Stephanie Partida DO STRESS REPORT Observed: 08/05/2017 Status: F Source: [place] 11:44 AM [facility] Cardiovascular Services [address] [place] [address] MR#: [id number] Acct: [id number] Name: GABRIELA GAMBOA Rep #: [id number] : 1940 77 From: Champ Pineda MD Primary Care: Stephanie Partida DO Status: ADM PRESTON Ordering Dr: Sex: F C Stress Test Report Pharmacologic myocardial perfusion stress test. 77-year-old lady with a history of chest pain. Stress protocol: Resting EKG demonstrates normal sinus rhythm with rate of 85 bpm normal intervals and noted resting blood pressure is 152/84 mmHg. The maximum heart rate attained was 131 bpm which was 60% of the maximum predicted heart rate the maximum workload attained was 1 metabolic equivalent. The patient maintained sinus rhythm throughout the recording. At rest there were no ST or T-wave changes noted suggest ischemia at peak infusion no ST or T-wave changes were noted suggest ischemia. The resting blood pressure is 152/84 with a final blood pressure 142/80 mmHg. Myocardial perfusion protocol. 12.0 mCi of technetium 99m sestamibi was injected at rest. 0.4 mg of regadenoson was infused per usual protocol. At peak infusion 35.9 mCi of technetium 99m sestamibi was injected. Stress images were obtained. Stress and rest images were reconstructed and compared in the short axis vertical long and horizontal long axis. Gated images were also obtained. Perfusion SPECT analysis: Review of the stress images demonstrate normal uptake of tracer noted in all areas of the myocardium. The resting images similarly demonstrate normal uptake of tracer noted in all areas of the myocardium. No reversibility is noted suggest ischemia and no previous infarct is noted. Gated SPECT analysis. The gated ejection fraction is 81%. Conclusion: Normal pharmacologic myocardial perfusion stress test. Preserved ejection fraction. 08/05/17 1144 <Electronically signed by Champ Pineda MD> Date Champ Pineda MD CC: Williams Amos Stephanie Helga NAILS Date Dictated: 08/05/17 1138 Date Transcribed: 08/05/171137 Board Member: CONCHA Signed PROTHROMBIN TIME W/INR Collected: 08/05/2017 Status: F Source: [place] 5:57 AM [facility] TYPE CODE TESTS RESULT OUT OF RANGE REFERENCE UNITS LAB L300.4150 11.7-14.9 SECONDS Normal PROTIME 12.2 LAB L300.4200 Normal INR 0.9 Performed By: #### L300.3900, L300.4310 #### [facility] [address] [place], [address] PARTIAL THROMBOPLAST Collected: 08/05/2017 Status: F Source: [place] TIME 5:57 AM [facility] TYPE CODE TESTS RESULT OUT OF RANGE REFERENCE UNITS LAB L300.4310 24.1-36.2 Seconds Normal PTT 36.2 Performed By: #### L300.3900, L300.4310 #### [facility] [address] [place], [address] BASIC METABOLIC Collected: 08/05/2017 Status: F Source: [place] PROFILE (BMP) 5:57 AM [facility] TYPE CODE TESTS RESULT OUT OF RANGE REFERENCE UNITS LAB L501.0100 74-106 mg/dL High GLU 117 Result Comment: Fasting Glucose result from 100 to 125 mg/dL suggests IMPAIRED HOMEOSTASIS per A.D.A. criteria. Please note revised GLUCOSE reference range effective 2017. LAB L501.1000 7-18 mg/dL High BUN 26 LAB L501.1100 0.55-1.02 mg/dL Normal CREAT,SERUM 0.87 Result Comment: The validity of the calculated GFR AND GFRAA in patients over 70 years has not been determined. Clinical correlation is essential. LAB L501.1110 >60 mL/min Normal EST GFR 67 Result Comment: Non- GFR Calc LAB L501.1115 >60 mL/min Normal EST GFR - AA 81 Result Comment: GFR Calc LAB L501.1255 ml/min Normal Estimated CRCL 42.83 LAB L501.1300 10-20 RATIO High BUN/CRE 29.7 LAB L501.2200 8.5-10 mg/dL Normal .1 CA 8.9 LAB L501.5300 136-14 mmol/L Normal 5 NA 141 LAB L501.5600 3.5-5. mmol/L Normal 1 K 4.2 LAB L501.5900 98-107 mmol/L Normal CL 106 LAB L501.6100 21.0-3 mmol/L Normal 2.0 CO2 26.0 LAB L501.6200 5-15 Normal GAP 9 Performed By: #### L500.2500, L500.4100 #### [facility] [address] [place], [place], [address] LIPID PROFILE Collected: 08/05/2017 Status: F Source: [place] 5:57 AM [facility] TYPE CODE TESTS RESULT OUT OF RANGE REFERENCE UNITS LAB L501.4900 200 mg/dL Normal CHOL 165 Result Comment: <200 mg/dL Desirable 200-240 mg/dL Borderline >240 mg/dL High Risk LAB L501.5000 mg/dL Normal TRIG 107 Result Comment: The drugs N-Acetylcysteine and Metamizole may falsely depress this assay. Serum Triglycerides Reference Interval Normal <150 mg/dL Borderline high 150 - 199 mg/dL High 200 - 499 mg/dL Very High > or = 500 mg/dL LAB L501.6400 mg/dL Normal HDL 60 Result Comment: The drugs N-Acetylcysteine and Metamizole may falsely depress this assay. Reference Range HDL <40 mg/dL Low HDL Cholesterol HDL >or= 60 mg/dL High HDL Cholesterol LAB L501.6500 0-130 mg/dL Normal LDL 84 LAB L501.6600 5-40 mg/dL Normal VLDL 21 Performed By: #### L500.2500, L500.4100 #### [facility] [address] [place], [address] TROPONIN-I Collected: 08/05/2017 Status: F Source: [place] 1:25 AM [facility] Order Comment: 'TROP' Serial specimen #1, #2, #3, or #4: 2 TYPE CODE TESTS RESULT OUT OF RANGE REFERENCE UNITS LAB L501.4010 <0.06 ng/mL Normal < 0.02 TROPONIN-I Result Comment: TROPONIN-I EXPECTED VALUES <0.05 NEGATIVE 0.06 - 0.59 AT RISK OF MO > OR = 0.60 SUGGEST MO Performed By: #### L501.4010 #### [facility] [address] [place], [place], [address] EMERGENCY DEPARTMENT Observed: 08/05/2017 Status: F Source: [place] SUMMARY 1:10 AM [facility] Medical Records Department [address] [place] [address] Emergency Department Summary 03/24/18 0058 MR#: [id number] Acct: [id number] Name: GABRIELA GAMBOA Rep #: [id number] : 1940 77 From: Byron Benito MD PCP: Stephanie Partida DO Status: ADM PRESTON - ER Visit Summary Date of Service: 08/05/17 Chief Complaint: Chest pain shortness of breath History of Present Illness: The patient is a 77 F presenting for evaluation secondary chest pain shortness of breath. Patient states that she had a recent history of respiratory illness. She was placed on prednisone and azithromycin did have some improvement. Patient states however since yesterday she has been having exertional chest pain that she describes as a heaviness that is also associated with shortness of breath. This seems to improve with rest. Patient denies that she has any sort of history of DVT PE recent immobilization hemoptysis or exogenous hormone use. She does have prior history of coronary disease with a stent in the past. Patient has not had a recent stress test. Review of systems otherwise negative. Physical Examination: Vital signs are within normal limits except for tachycardia with a rate of 123 on presentation, patient is afebrile. General: Patient is well-nourished well-developed and in no acute distress. Head: Normocephalic, atraumatic Eyes: Pupils equal round and reactive bilaterally, extra occular motion intact bialterally ENT: Moist mucous membranes Neck: Supple, no lymphadenopathy, no JVD, no meningismus CVS: Heart regular rhythm and tachycardic, no murmurs, rubs or gallops, radial pulses 2+ bilaterally Resp: Respirations nondistressed, lung sounds clear bilaterally Abdomen: Soft, nontender, nondistended, no palpable masses, normal bowel sounds Back: Nontender Extremities: Nontender, atraumatic, active full range of motion, no peripheral edema, calves are supple no palpable cord Skin: warm, no rashes, no petechia Neuro: Alert and oriented x 4, CN 2-12 intact, no lateralizing neurological defecits Psyc: Normal affect Test Results: EKG shows a sinus tachycardia with a rate of 112 no evidence of right ventricular strain, normal ST segments and T waves. No significant change from prior EKG. CBC shows leukocytosis of 12.9, chemistry shows mildly elevated creatinine 1.3, d-dimer 0.77, troponin negative. Chest x-rays negative per radiology, CT angiogram is negative per radiology Emergency Department Course and Treatment: Patient presented for evaluation secondary to exertional chest pain and shortness of breath. She was evaluated from a cardiac standpoint as her symptomatology seemed very concerning for the possibility of cardiac chest pain. Patient's workup was found to be negative for d-dimer was borderline for her age, so given the tachycardia a CT angiogram was performed and was found to be negative. At this point I do believe that the patient requires admission for a rule out cardiac workup. Patient's HOLDEN risk score is 4. Patient will be admitted under the hospitalist. She was pain-free on repeat evaluation. Disposition: Admission Impression: 1. Exertional chest pain This note was generated with [employer] dictation software. It may contain incorrect words, spelling, and punctuation that were not noted in review of the chart prior to signing ED Disposition - Plan for ED Patient: Disposition: Acute Care Hospital [facility] Chief Complaint: Shortness of Breath What to do if you have Problems For any increased pain, shortness of breath, bleeding, nausea or vomiting, chest pain, or any unexpected problems, contact your Primary Care Provider. Call [facility] ([phone]) or report to the closest Emergency Room. Call 911 if necessary. 08/05/17 0110 <Electronically signed by Byron Benito MD> Date Byron Benito MD Cosigner Signature (If Indicated): Date CC: Stephanie Partida DO TROPONIN-I Collected: 08/04/2017 Status: F Source: [place] 10:41 PM [facility] Order Comment: 'TROP' Serial specimen #1, #2, #3, or #4: 2 TYPE CODE TESTS RESULT OUT OF RANGE REFERENCE UNITS LAB L501.4010 <0.06 ng/mL Normal < 0.02 TROPONIN-I Result Comment: TROPONIN-I EXPECTED VALUES <0.05 NEGATIVE 0.06 - 0.59 AT RISK OF MO > OR = 0.60 SUGGEST MO Performed By: #### L501.4010 #### [facility] [address] [place], [address] HISTORY AND PHYSICAL Observed: 08/04/2017 Status: F Source: [place] EXAM 9:39 PM [facility] Medical Records Department [address] [place] [address] History and Physical 08/04/17 2131 MR#: [id number] Acct: [id number] Name: GABRIELA GAMBOA Rep #: [id number] : 1940 77 From: Jonathan Gavin DO PCP: Stephanie Partida DO Status: ADM PRESTON Y Location: [place] [address] Problem List (1) Unstable angina Status: Acute (2) Chronic back pain Status: Chronic Qualifiers: Back pain location: low back pain Back pain laterality: unspecified Sciatica presence: unspecified whether sciatica present Qualified Code(s): M54.5 - Low back pain; G89.29 - Other chronic pain (3) CAD (coronary artery disease) Status: Chronic (4) Hyperlipidemia Status: Chronic (5) Hypertension Status: Chronic History of Present Illness Date of Admission: 08/04/17 Chief Complaint: chest pain The patient is a 77 year old F who is in her normal state of health but then started having chest pain beginning on the . Chest pain was worse with exertion, such as with activity and chores. Got better but not completely resolved with rest. Pain was midsternal and nonradiating. Patient states that she would also have some associated dizziness and no shortness of breath. Patient denies having any history of this in the past. Patient presented to the emergency room and had a d-dimer that was 0.77. Patient underwent a CT angiogram of the chest that showed no pulmonary embolism did show some dependent atelectasis. His chest pain is still there but much improved and she was experiencing with exertion. For the past week or so, patient has had an upper respiratory viral infection but had been improving during that time. 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 Denies: Edema Respiratory: Reports: Shortness of breath upon exertion. Denies: Cough Gastrointestinal: Reports: Abdominal Pain - Did have some left lower quadrant abdominal pain but that is since resolved., Nausea. Denies: Vomiting Genitourinary: Denies: Dysuria, Hematuria Musculoskeletal: Denies: Joint Pain, Joint Tenderness Skin: Denies: Rash, Wounds Neurological: Denies: Numbness, Tingling, Focal weakness Psychiatric: Denies: Anxiety, Depression Endocrine: Denies: Change in Body Habitus, Heat/ Cold Intolerance Hematologic/ Lymphatic: Denies: Easy Bruising, Easy Bleeding, Hx of blood clot VTE Information - Inpt Only VTE Present on Admission: No VTE Pharm Prophylaxis ordered?: Yes Patient Problems: Active and Suspected Problems Unstable angina (Acute) - Physical Exam General: Alert, Cooperative, No apparent distress HEENT: Atraumatic, Normocephalic Neck: No Nodes, Thyroid Normal Size and Texture Lungs: Clear to auscultation, Normal air movement, No rhonchi, No wheeze Cardiovascular: Regular rate, Regular Rhythm, Normal S1, Normal S2, No murmurs Abdomen: Bowel Sounds Present, Soft, Non Tender, Non-Distended Extremities: No edema, No Calf Tenderness Skin: No rashes, No breakdown Musculoskeletal: No Tenderness to Palpation of Joints or Extremities, No Muscle Wasting Neurological: Neuro grossly intact, Muscle tone normal, - - No clonus Psych/Mental Status: Normal Affect, Appropriate, - - Did become tearful at one point during our encounter. Vital Signs Temp Pulse Resp BP Pulse Ox 36.8 C 123 H 20 H 145/76 H 95 08/04/17 17:23 08/04/17 17:23 08/04/17 17:23 08/04/17 20:00 08/04/17 20:00 Oxygen Delivery Method Room Air Weight: 77.836 kg Body Mass Index (BMI) 31.4 Laboratory Tests Past 24 Hrs WBC 12.9 H Clinical Impression(s) from Imaging Studies Chest X-Ray 08/04/17 17:55 IMPRESSION: No acute cardiopulmonary findings or changes. Electronically Signed: Salma Meyers MD at 18:22 EDT , Service support , Chest CTA 08/04/17 19:11 IMPRESSION: There is no evidence of pulmonary embolism, aortic aneurysm or aortic dissection. There is minimal dependent atelectasis in both lungs. There are no focal airspace opacities. There is no pleural effusion or significant lymphadenopathy. Electronically Signed: Damari Cao MD at 20:30 EDT Tel Direct: [phone], Service support , Assessment/Plan Active and Suspected Problems Unstable angina (Acute) 1. Unstable angina * Patient improved and her workup, thus far has been negative * Plan is for a stress test on the * In the meantime, we will cycle troponins. Patient will have nitroglycerin as needed as well as morphine. * Check lipid panel in the morning. * She did receive aspirin in the emergency room. Patient takes aspirin 81 mg daily at home, which will be continued. 2. Chronic kidney disease stage III versus acute kidney injury * Patient's creatinine is 1.34 with baseline appear to be 0.21 December 2016 * Since patient did receive a contrast dye load for the CT angiogram, will give her some IV fluids. * Reassess creatinine in the morning. 3. DVT prophylaxis * will be with low molecular weight heparin. But will be initiated on the if patient's stress test is abnormal and requires further hospitalization. 4. Advanced directives * Discussed CPR as well as tracheal intubation with the patient. Patient states that she wishes to be DNR Comfort Care arrest and is okay with short- term intubation. I told her that I will certainly order that and but I did recommend that she consider resending it if she does require a left heart catheterization for a potential of developing arrhythmia during her catheterization. She said that she would be okay with that if necessary. Code Visit OBSV Tiffany AND M: [id number] Initial observation care L3 08/04/172138 <Electronically signed by Jonathan Gavin DO> Date Jonathan Gavin DO Cosigner Signature: Date (if applicable) CC: Jonathan Gavin DO; Stephanie Partida DO Signed CTA CHEST W/WO Observed: 08/04/2017 Status: F Source: [place] CONTRAST 7:13 PM [facility] Imaging Services [address] [place] [address] CTA Chest W/WO Contrast MR#: [id number] Acct: [id number] Name: GABRIELA GAMBOA Rep #: [id number] : 1940 F 77 From: Damari Cao MD PCP: Stephanie Partida DO Status: [facility] ER Study: CTA Chest W/WO Contrast Date of Exam: 08/04/17 Exam# [id number] Ordering Dr: Byron Benito MD STUDY: CTA CHEST REASON FOR EXAM: Female, 77 years old. Elevated d-dimer RADIATION DOSAGE (If Supplied By Facility): CTDIvol = ( 8.79 ) mGy, DLP = ( 273.75 ) mGycm TECHNIQUE: The examination was performed with the intravenous administration of 100 ml of Isovue 370 contrast material. Post-processing of the angiographic images was performed, with multiplanar reformation and 3D reconstruction. Individualized dose optimization techniques were used for this CT. COMPARISON: Chest radiograph from the same day FINDINGS: Normal enhancement of the main pulmonary artery and right and left pulmonary arteries without filling defects. Normal enhancement of the bilateral peripheral pulmonary arteries without evidence of filling defects. There are minimal vascular calcifications in the thoracic aorta. There is no demonstrated aortic dissection. The heart is normal in size. There are calcifications of the coronary arteries. There is a 1.2 cm nodule in the thyroid isthmus. The hilar regions are unremarkable. The airways are unremarkable. There are minimal increased lung markings in the dependent aspects of both lungs. There are no focal airspace opacities. There is no demonstrated pleural abnormality. The soft tissues are unremarkable. There are marked degenerative changes in the visualized spine. There are old rib fractures on the right. There is an old sternal fracture. There are no significant abnormalities in the visualized upper abdomen. CT/CTA Chest W/WO Contrast IMPRESSION: There is no evidence of pulmonary embolism, aortic aneurysm or aortic dissection. There is minimal dependent atelectasis in both lungs. There are no focal airspace opacities. There is no pleural effusion or significant lymphadenopathy. Electronically Signed: Damari Cao MD at 20:30 EDT Tel Direct: [phone], Service support , CC: Stephanie Partida DO; Byron Benito Board Member: Signed CBC W/DIFF, AUTOMATED Collected: 08/04/2017 Status: F Source: [place] 6:20 PM [facility] [place] CODE TESTS RESULT OUT OF RANGE REFERENCE UNITS LAB L100.1000 4.4-11.0 K/mm3 High WBC 12.9 LAB L100.1200 4.2-5.4 M/mm3 Normal RBC 4.64 LAB L100.1300 12.0-15.0 g/dl Normal HGB 14.2 LAB L100.1400 37-47 % Normal HCT 42.1 LAB L100.1500 81-99 fL Normal MCV 90.7 LAB L100.1600 27.0-32.0 pg Normal MCH 30.6 LAB L100.1700 32-36 g/gl Normal MCHC 33.7 LAB L100.1810 11.6-14.6 % Normal RDW CV 14.4 LAB L100.1820 35.1-43.9 fl High RDW SD 47.9 LAB L100.1900 150-450 K/mm3 Normal PLT 216 LAB L100.2000 6.2-12.0 fl Normal MPV 9.5 LAB L100.2100 47-70 % High NEUT% 79.2 LAB L100.2200 19-41 % Low LY% 11.9 LAB L100.2300 0-10 % Normal MONO% 7.2 LAB L100.2400 0-5 % Normal EO% 1.2 LAB L100.2500 0-1 % Normal BASO% 0.1 LAB L100.2550 0.0-0.9 % Normal IM GRAN % 0.400 Result Comment: IG% - Immature Granulocytes (promyelocytes, myelocytes and metamyelocytes) > 1% indicates that a LEFT SHIFT is Present. LAB L100.2620 2.0-7.7 X10 3/uL High Absolute Neut 10.2 LAB L100.2720 0.83-4.51 X10 3/ul Normal Absolute Lymph 1.54 Performed By: #### L100.0100 #### [facility] [address] [facility] [place], [place], [id number] D-DIMER QUANTITATIVE Collected: 08/04/2017 Status: F Source: [place] (DVT/PE) 6:20 PM [facility] [place] CODE TESTS RESULT OUT OF RANGE REFERENCE UNITS LAB L300.8000 0.27-0.49 FEU/ug/m High alert D-DIMER 0.77 QUANT Result Comment: RESULTS CALLED TO MARIUM SHEPHERD 08/04/17 1855 Byron Crocker. REPORT READ BACK BY SAME . D-Dimer ELEVATED (>0.49): Additional studies and clinical assessments are indicated to conclude diagnosis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
== END ==
PROVIDERS: Family Provider Family Medicine; PCP Family Medicine; Referring Provider Family Medicine; Visit Provider Family Medicine
DX: M79.601 Pain in right arm (principal)
CPT/HCPCS: 73060

== ENCOUNTER 2018-04-29 09:20 | Emergency (ER) | payer MEDICARE, OTHER, SELFPAY ==
[2018-04-29 09:21] VITALS: PULSE 74; RESP 20; TEMP 36.7; O2SAT 97; BMI 32.5
--- NOTE | 2018-04-29 09:25 | EKG12_ITS ---
Test Reason : CP Blood Pressure : / mmHG Vent. Rate : 073 BPM Atrial Rate : 073 BPM P-R Int : 176 ms QRS Dur : 074 ms QT Int : 384 ms P-R-T Axes : 072 050 047 degrees QTc Int : 423 ms Normal sinus rhythm Normal ECG Confirmed by ZARIA ARANDA MD ([id number]), city editor CORINNE CERRATO ([id number]) on 05/02/2018 3:06:26 PM Referred By: NAVDEEP Confirmed By:ZARIA ARANDA MD
--- NOTE | 2018-04-29 09:35 | RAD_ITS ---
STUDY: X-RAY CHEST REASON FOR EXAM: Female, 77 years old. Chest pressure shortness of breath. TECHNIQUE: Single AP portable view of the chest. COMPARISON: 04 August 2017 FINDINGS: The lungs are clear and expanded. There is no demonstrated pleural abnormality. Normal size heart. Normal mediastinum and brendan. Normal visualized pulmonary arteries. There is atherosclerotic calcification of the aortic arch with tortuosity. Normal visualized thoracic spine. Normal visualized ribs, clavicles, and shoulders. There is no demonstrated abnormality of the visualized soft tissue structures of the upper abdomen. RAD/Chest 1 View (Portable) IMPRESSION: No evidence of acute cardiopulmonary process. Electronically Signed: Alon Henry DO at 10:15 EST , Service support ,
[2018-04-29 09:36] VITALS: O2SAT 98
[2018-04-29 09:36] LABS: Absolute Lymphocyte Count 1.52 X10^3/ul (0.83-4.51); Absolute Neutrophil Count 3.9 X10^3/uL (2.0-7.7); Basophil# 0.05 X10^3/uL; Basophil% 0.8 % (0-1); Eosinophil# 0.42 X10^3/uL; Eosinophils% 6.5 % (0-5); Hematocrit 41.5 % (37-47); Hemoglobin 14.3 g/dl (12.0-15.0); Lymphocyte # 1.52 X10^3/ul (4.0); Lymphocyte % 23.7 % (19-41); Mean Corp Hgb Conc 34.5 g/gl (32-36); Mean Corpuscular Hgb 31.6 pg (27.0-32.0); Mean Corpuscular Volume 91.6 fL (81-99); Mean Platelet Vol. 9.3 fl (6.2-12.0); Monocyte% 7.8 % (0-10); Neutrophil # 3.92 X10^3/uL (2.7-7.7); POSITIVE COUNT NO; POSITIVE DIFFERENTIAL NO; POSITIVE MORPHOLOGY NO; Platelet Count 256 K/mm3 (150-450); RBC Distribution Width CV 12.9 % (11.6-14.6); RBC Distribution Width SD 42.2 fl (35.1-43.9); Red Blood Count 4.53 M/mm3 (4.2-5.4); White Blood Count 6.4 K/mm3 (4.4-11.0)
[2018-04-29] MEDS: Aspirin 81 MG TAB.CHEW 324 MG PO (09:38)
--- NOTE | 2018-04-29 09:43 | ED.VISSUMM ---
- ER Visit Summary Date of Service: 04/29/18 Chief Complaint: Cough History of Present Illness: The patient is a 77 F history of 1 prior cardiac stent from 2003. Hypertension and kidney stones. States she has had no recent cardiac problems in the last several years. She has had no recent cardiac cath or stress test. States the last week she has had a productive cough of yellowish sputum. Denies any hemoptysis. Just states that she has some chest discomfort with it. It is not exertional. She does not believe this to be cardiac related. She denies any fever. She denies any significant shortness of breath. No leg pain or swelling. Physical Examination: Older female. No acute distress. Vital signs are stable. Afebrile. Pulse ox 97% on room air no hypoxia. HEENT exam is unremarkable. Moist mucous membranes. Neck nontender. No lymphadenopathy. Lungs coarse breath sounds. No rales. No rhonchi. Wet cough. Heart regular rate and rhythm. No murmur. Rate about 70. Abdomen soft and nontender. Normal bowel sounds. No peritoneal signs. Moving all 4 extremities. Calves are nontender without edema or cords. Normal deputy commissioner strength. Neurologically she is awake and alert with no focal motor deficits. Back nontender. Skin unremarkable. Test Results: Patient will undergo a cardiac workup but I do think this is more than likely an underlying bronchitis. Her pain is really not consistent with a cardiac etiology nor is exertional. EKG sinus rhythm rate of 73 no acute abnormality. CBC normal. White count of 6. Chemistries normal. Creatinine 1.2. Troponin normal. Chest x-ray portable one view shows no acute abnormality read by myself. No infiltrate. I did go over the films with the patient and her friend at bedside. Emergency Department Course and Treatment: Clinically and historically I do feel this is a bronchitis and not cardiac chest pain. Patient is comfortable being discharged home. She has had the symptoms for 1 week then not improving. She will be started on Zithromax Z-Ramses. Treatment Plan: Follow-up with your doctor as needed. Disposition: Discharge Impression: Acute bronchitis This note was generated with [employer] dictation software. It may contain incorrect words, spelling, and punctuation that were not noted in review of the chart prior to signing ED Disposition - Plan for ED Patient: Chief Complaint: Chest Pain Referrals: Stephanie Partida DO [Primary Care Provider] -
--- NOTE | 2018-04-29 09:46 | ED.DCSUM_ITS ---
- ER Visit Summary Date of Service: 04/29/18 Chief Complaint: Cough History of Present Illness: The patient is a 77 F history of 1 prior cardiac stent from 2003. Hypertension and kidney stones. States she has had no recent cardiac problems in the last several years. She has had no recent cardiac cath or stress test. States the last week she has had a productive cough of yellowish sputum. Denies any hemoptysis. Just states that she has some chest discomfort with it. It is not exertional. She does not believe this to be cardiac related. She denies any fever. She denies any significant shortness of breath. No leg pain or swelling. Physical Examination: Older female. No acute distress. Vital signs are stable. Afebrile. Pulse ox 97% on room air no hypoxia. HEENT exam is unremarkable. Moist mucous membranes. Neck nontender. No lymphadenopathy. Lungs coarse donita ath sounds. No rales. No rhonchi. Wet cough. Heart regular rate and rhythm. No murmur. Rate about 70. Abdomen soft and nontender. Normal bowel sounds. No peritoneal signs. Moving all 4 extremities. Calves are nontender without edema or cords. Normal box car checker strength. Neurologically she is awake and alert with no focal motor deficits. Back nontender. Skin unremarkable. Test Results: Patient will undergo a cardiac workup but I do think this is more than likely an underlying bronchitis. Her pain is really not consistent with a cardiac etiology nor is exertional. EKG sinus rhythm rate of 73 no acute abnormality. CBC normal. White count of 6. Chemistries normal. Creatinine 1.2. Troponin normal. Chest x-ray portable one view shows no acute abnormality read by myself. No infiltrate. I did go over the films with the patient and her friend at bedside. Emergency Department Course and Treatment: Clinically and historically I do feel this is a bronchitis and not cardiac chest pain. Patient is comfortable being discharged home. She has had the symptoms for 1 week then not improving. She will be started on Zithromax Z-Ramses. Treatment Plan: Follow-up with your doctor as needed. Disposition: Discharge Impression: Acute bronchitis This note was generated with [employer] dictation software. It may contain incorrect words, spelling, and punctuation that were not noted in review of the chart prior to signing ED Disposition - Plan for ED Patient: Chief Complaint: Chest Pain Referrals: Stephanie Partida DO [Primary Care Provider] -
[2018-04-29 09:51] LABS: Anion Gap 8 (5-15); BUN 30 mg/dL (7-18); BUN/Creat Ratio 24.4 RATIO (10-20); Chloride 106 mmol/L (98-107); Creatinine, Serum 1.23 mg/dL (0.55-1.02); EST Glomerular Filtration Rate 45 mL/min (>60); Est Glom Filt Rate - Afr Amer 54 mL/min (>60); Estimated Creatinine Clearance 30.29 ml/min; Glucose 134 mg/dL (74-106); Sodium Level 138 mmol/L (136-145)
--- NOTE | 2018-04-29 10:12 | ED.DEP ---
ED Disposition - Plan for ED Patient: Disposition: Home or Assisted Living Chief Complaint: Chest Pain Instructions: Acute Bronchitis Prescriptions: Azithromycin [Zithromax Z-Laurie] 250 mg PO UD #1 box Referrals: Stephanie Partida DO [Primary Care Provider] - Additional Instructions: Plenty of fluids and rest. Zithromax Z-LAURIE as your antibiotic. Follow-up with your doctor as needed.
[2018-04-29 10:24] VITALS: BP 120/64; PULSE 72; RESP 17; O2SAT 97
--- OUTSIDE RECORDS SUMMARY | 2018-08-01 13:03 | XMS RPT_ITS ---
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 Min 4 Views MR#: [id number] Acct: [id number] Name: GABRIELA GAMBOA Rep #: [id number] : 1940 F 77 From: James Hunter MD PCP: Stephanie Partida DO Status: REG CLI Study: L/S Spine Min 4 Views Date of Exam: 08/04/17 Exam# [id number] Ordering Dr: Damion Wade MD STUDY: X-RAY [...] , CC: Damion Wade; Stephanie Partida DO Forest Manager: Signed CREATININE FINGERSTICK Collected: 07/04/2017 Status: F Source: [facility] 8:07 AM [facility] TYPE CODE TESTS RESULT OUT OF REFERENCE UNITS RANGE LAB L9100.0210 0.55-1.02 mg/dL High CREATININE WB 1.2 LAB L9100.0220 >60 mL/min Low EGFR WB 45.0000 Performed By: #### L9100.0200 #### [facility] Point of Care [address] [place] [address] ABDOMEN WITH IV Observed: 07/04/2017 Status: F Source: [facility] CONTRAST 7:55 AM [facility] REPOSITORY [facility] Imaging Services [address] [place] [address] Abdomen WITH IV Contrast MR#: [id number] Acct: [id number] Name: GABRIELA GAMBOA Rep #: [id number] : 1940 F 77 From: Rahul Perez MD PCP: Stephanie Partida DO Status: REG CLI Study: Abdomen WITH IV Contrast Date of Exam: 07/04/17 Exam# [id number] Ordering Dr: Stephanie Partida DO STUDY: CT [...] Rahul Perez MD at 13:28 EST Tel [phone], Service support , CC: Stephanie Partida DO Forest Manager: Signed ABDOMEN COMPLETE Observed: 06/26/2017 Status: F Source: [facility] 9:53 AM [facility] Imaging Services [address] [place] [address] Abdomen Complete MR#: [id number] Acct: [id number] Name: GABRIELA GAMBOA Rep #: [id number] : 1940 F 77 From: Rahul Perez MD PCP: Stephanie Partida DO Status: REG CLI Study: Abdomen Complete Date of Exam: 06/26/17 Exam# [id number] Ordering Dr: Stephanie Partida DO STUDY: ABDOMINAL [...] Rahul Perez MD at 14:32 EST Tel [phone], Service support , CC: Stephanie Partida DO Forest Manager: Signed ALLERGIES ALLERGIES DATE TYPE / CODE NAME / CODE REACTION SEVERITY SOURCE 08/04/2017 Drug No Known Unknown [facility] Allergy/4160 Allergies/F00 Hospital [address]40(SNOMED 9968448(RXNOR Repository CT) M) ENCOUNTERS ENCOUNTERS ADMIT/DISCHARGE ACCOUNT ADMITTING ENCOUNTER LOCATION SOURCE NUMBER CLASS 05/31/2018 [id number] Ambulatory Jagjit Jagjit 9 [facility] ing:OPBI Repository 05/11/2018 [id number] [place] [facility] ing:BFHLAB Repository 04/29/2018/ [id number] Emergency [place] 5 [facility] ing:ED Repository 04/16/2018 [id number] Ambulatory Jagjit Jagjit 6 [facility] ing:MTRAD Repository 02/02/2018 [id number] Ambulatory [place] Jagjit 1 [facility] ing:MTLAB Repository 08/05/2017/ [id number] Ambulatory BMSBuilding:W [place] 4 [facility] Repository 08/04/2017/ [id number] Jonathan Gavin Ambulatory [place] Jagjit 8 7 [facility] ing:PCURoom: Repository NBN150Art: 1 08/04/2017 [id number] Jonathan Gavin Ambulatory BMSBuilding:B Jagjit 3 [place] Repository 08/04/2017 [id number] Jonathan Gavin Ambulatory BMSBuilding:B Jagjit 1 [place] Repository 08/04/2017 [id number] Ambulatory [place] 5 [facility] ing:MTRAD Repository 07/04/2017 [id number] Ambulatory Jagjit Jagjit 9 [facility] ing:CT Repository 06/26/2017 [id number] Amb[place] [facility] ing:US Repository PAYERS PAYERS ENCOUNTER GUARANTOR PAYER SUBSCRIBER SOURCE 05/31/2018 GABRIELA Brown Primary GABRIELA Brown Jagjit [id number] Insurance:MEDICARE BARNESDOB: [facility] PART A [facility] [id number] Number: Repository [id number]: 330 [id number] [phone] () Date:2018-04-11 05/31/2018 Secondary GABRIELA Stricklandoster Insurance:AARolicy BARNESDOB: [facility] Number: [id number] Hospital [id number] Repository Date:0643-67-25[address], [place] [address]QL: 05/31/2018 Tertiary NOT GIVENUNK Jagjit Insurance:SELF PAY [facility] Number: Effective Repository Date:2018-04-11 05/11/2018 GABRIELA Brown Primary GABRIELA M Jagjit [id number] Insurance:MEDICARE [facility]ARNESDOB: [facility] [id number] Number: Repository [id number]: 330 [id number] [phone] () Date:2018-05-11 05/11/2018 Secondary GABRIELA Brown Jagjit Insurance:AARPPolicy BARNESDOB: Community Number: [id number] Hospital [id number] Repository Date:9778-18-37[address], [place] [address]QR: 05/11/2018 Tertiary NOT GIVENUNK Jagjit Insurance:SELF PAY [facility]: Effective Repository Date:2018-05-11 04/29/2018 GABRIELA M Primary GABRIELA M [place] [id number] Insurance:MEDICARE BARNESDOB: Community [place] PART A [facility] [id number] Number: Repository [id number]: 330 [id number] [phone] () Date:2018-04-29 04/29/2018 Secondary GABRIELA M [place] Insurance:AARPPolicy BARNESDOB: Community Number: [id number] Hospital [id number] Repository Date:0154-31-53[address]MSHHYFL, [place] [address]GG: 04/29/2018 Tertiary NOT [place]IV[place]UNK [place] Insurance:SELF PAY [facility] Number: Effective Repository Date:2018-04-29 04/16/2018 GABRIELA Kevin Primary GABRIELA M [place] [id number] Insurance:MEDICARE BARNESDOB: Community [place] PART A [facility] [id number] Number: Repository [id number]: 330 [id number] [phone] () Date:2018-04-16 04/16/2018 Secondary GABRIELA M Jagjit Insurance:AARPPolicy BARNESDOB: Community Number: [id number] Hospital [id number] Repository Date:6977-37-04GP [facility] [place]023[place]YS[place], [place] [address]QL: 04/16/2018 Tertiary NOT GIVENUNK [place] Insurance:SELF PAY [facility] Number: Effective Repository Date:2018-04-16 02/02/2018 GABRIELA M Primary GABRIELA M Jagjit [id number] Insurance:STATE FARM BARNESDOB: Community [facility] [facility] [id number], [place] Number: Repository [address]Qch: [id number] [phone] (HP) Date:2157-47-51[address]BBPPZB, [place] [address]WX: 02/02/2018 Secondary GABRIELA M [place] Insurance:MEDICARE BARNESDOB: Community PART A [facility] [id number] Hospital Number: Repository [id number] Date:2018-02-02 02/02/2018 Tertiary GABRIELA M Jagjit Insurance:AARPPolicy BARNESDOB: Community Number: [id number] Hospital [id number] Repository Date:9595-72-17RH [address]PXFHDNC, [place] [address]IZ: 02/02/2018 Tertiary NOT GIVENUNK [place] Insurance:SELF PAY [facility] Number: Effective Repository Date:2018-02-02 08/05/2017 GABRIELA M Primary GABRIELA M [place] [id number] Insurance:MEDICARE BARNESDOB: Community [place] PART A [facility] [id number], [place] Number: Repository [address]Vta: 330 [id number] [phone] () Date:2017-08-04 08/05/2017 Secondary GABRIELA M Jagjit Insurance:AARPPolicy BARNESDOB: [facility] Number: [id number] Hospital [id number] Repository Date:9640-30-65RH [address]PIYWJGB, [place] [address]YM: 08/05/2017 Tertiary NOT [place]UNK [place] Insurance:SELF PAY [facility] Number: Effective Repository Date:2017-08-05 08/04/2017 GABRIELA M Primary GABRIELA Brown [place] [id number] Insurance:MEDICARE BARNESDOB: Community [place] PART A [facility] [id number], [place] Number: Repository [address]Kfz: 330 [id number] [phone] (HP) Date:2017-08-04 08/04/2017 Secondary GABRIELA M [place] Insurance:AARPPolicy BARNESDOB: [facility] Number: [id number] Hospital [id number] Repository Date:0361-02-20SZ [address]IDEXNPW, [place] [address]YL: 08/04/2017 Tertiary NOT GIVENUNK [place] Insurance:SELF PAY [facility] Number: Effective Repository Date:2017-08-04 08/04/2017 GABRIELA M Primary GABRIELA Brown [place] [id number] Insurance:MEDICARE BARNESDOB: Community [place] PART A [facility] [id number] Number: Repository [address]Lah: 330 [id number] [phone] (HP) Date:2017-08-04 08/04/2017 Secondary GABRIELA M Jagjit Insurance:AARPPolicy BARNESDOB: [facility] Number: [id number] Hospital [id number] Repository Date:0638-15-69[address]BMPEGYV, [place] [address]BP: 08/04/2017 Tertiary NOT GIVENUNK [place] Insurance:SELF PAY [facility] Number: Effective Repository Date:2017-08-04 08/04/2017 GABRIELA Kevin Primary GABRIELA M Jagjit [id number] Insurance:MEDICARE BARNESDOB: Community [place] PART A [facility] [id number] [place] Number[facility] Repository [address]Lai: 330 [id number] [phone] () Date:2017-08-04 08/04/2017 Secondary GABRIELA M [place] Insurance:AARPPolicy BARNESDOB: Community Number: [id number] Hospital [id number] Repository Date:1067-63-21CG [address]GOKZKWM, [place] [address]SM: 08/04/2017 Tertiary NOT GIV[place]UNK [place] Insurance:SELF PAY [facility] Number: Effective Repository Date:2017-08-04 08/04/2017 GABRIELA Kevin Primary GABRIELA Brown Jagjit [id number] Insurance:MEDICARE BARNESDOB: Community [place] PART A [id number] [place] Number: Repository [address]Qjk: 330 [id number] [phone] () Date:2017-08-04 08/04/2017 Secondary GABRIELA M Jagjit Insurance:AARPPolicy BARNESDOB: Community Number: [id number] Hospital [id number] Repository Date:9040-68-10VU [address]AJJENQT, [place] [address]YB: 08/04/2017 Tertiary NOT [place]UNK [place] Insurance:SELF PAY [facility] Number: Effective Repository Date:2017-08-04 07/04/2017 GABRIELA M Primary GABRIELA M [place] [id number] Insurance:STATE BARNESDOB: [facility] BAYBERRY [facility] Number: [id number], [place] [id number] Repository [address]Glt: 330) Date:3319-76-57QH [phone] () [id number] [place] [address]UB: 07/04/2017 Secondary GABRIELA M [place] Insurance:MEDICARE BARNESDOB: Community PART A [facility] [id number] Hospital Number: Repository [id number] Date:2017-06-28 07/04/2017 Tertiary GABRIELA M [place] Insurance:AARPPolicy BARNESDOB: Community Number: [id number] Hospital [id number] Repository Date:2746-32-59IZ [address]MJTKWEX, [place] [address]WD: 07/04/2017 Tertiary NOT GIVENUNK [place] Insurance:SELF PAY [facility] Number: Effective Repository Date:2017-06-28 06/26/2017 GABIRELA M Primary GABRIELA M [place] [id number] Insurance:STATE BARNESDOB: [facility] BAYBERRY [facility] Number: [id number], [place] [id number] Repository [address]Vtk: 330) Date:8194-15-38RU [phone] () 378662URJJOWV, [place] [address]GQ: 06/26/2017 Secondary GABRIELA Danielson Insurance:MEDICARE BARNESDOB: Community PART A [facility] [id number] Hospital Number: Repository [id number] Date:2017-06-16 06/26/2017 Tertiary GABRIELA Danielson Insurance:AARPPolicy [facility] Community Number: [id number] [facility] [id number] Repository Date:1283-77-15QU [address]DKHAMAL, [place] [address]IZ: 06/26/2017 Tertiary NOT GIVENUNK Jagjit Insurance:SELF PAY [facility] Number: Effective Repository Date:2017-06-16
== END 2018-04-29 10:24 | disposition home or self-care (01) ==
PROVIDERS: Emergency Provider Emergency Medicine; Family Provider Family Medicine; PCP Family Medicine
DX: J20.9 Acute bronchitis, unspecified (principal); I10 Essential (primary) hypertension; I25.10 Atherosclerotic heart disease of native coronary artery without angina pectoris; Z95.5 Presence of coronary angioplasty implant and graft; Z85.828 Personal history of other malignant neoplasm of skin
CPT/HCPCS: 71045; 80048; 84484; 85025; 93005; 99285

== ENCOUNTER → 2018-05-11 13:11 | Outpatient (CLI) | payer MEDICARE, OTHER, SELFPAY ==
[2018-04-29 09:21] VITALS: BMI 32.5
== END ==
PROVIDERS: Family Provider Family Medicine; PCP Family Medicine; Visit Provider Family Medicine
DX: R30.0 Dysuria (principal)
CPT/HCPCS: 87086; 87088; 87186

== ENCOUNTER → 2018-05-31 12:36 | Outpatient (CLI) | payer MEDICARE, OTHER, SELFPAY ==
--- NOTE | 2018-05-31 12:40 | BI_ITS ---
MAMMOGRAPHY - BILATERAL SCREENING REASON FOR EXAM: Female, 78 years old. Routine annual screening examination. PERTINENT HISTORY: Grandmother with breast cancer. TECHNIQUE: Digital bilateral breast andree (3D mammographic acquisition) in the CC and MLO projections. 2-D mediolateral oblique (MLO) and craniocaudad (CC) views of both breasts were obtained. CAD: Full Field Digital Mammography with Computer Added Detection was performed. COMPARISON: Comparison is made with prior outside examination dated January 30, 2017. FINDINGS: Breast Composition: The breasts are heterogeneously dense, which may obscure small masses. There are no dominant masses or suspicious calcifications. Stable small calcified nodule in the mid lateral portion of the right breast. Stable appearance of the small bilateral axillary lymph nodes. No other significant abnormalities are identified. There has been no significant change since the prior study. BI/SCREENING MAMM (CAD), BILAT IMPRESSION: Stable bilateral screening mammogram. Yearly follow-up mammogram recommended. (A) ASSESSMENT CATEGORY: BIRADS Category 2: Benign. A letter regarding these results will be sent to the patient by the facility within 30 days. Approximately 10% of breast cancers are not detected by mammography. A normal mammogram should not delay biopsy of a clinically suspicious abnormality. [id number] Electronically Signed: Rahul Perez MD at 13:46 EST Tel [phone], Service support ,
--- OUTSIDE RECORDS SUMMARY | 2018-08-05 05:10 | XMS RPT_ITS ---
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 [id number] Repository Date:1906-77-08[address], [place] [address]DI: 05/31/2018 Tertiary NOT GIVENUNK Jagjit Insurance:SELF PAY [facility] Number: Effective Repository Date:2018-04-11 05/11/2018 GABRIELA Brown Primary GABRIELA M Jagjit [id number] Insurance:MEDIC[facility] [id number] Number: Repository [id number]: 330 [id number] [phone] () Date:2018-05-11 05/11/2018 Secondary GABRIELA Brown Jagjit Insurance:AARPPolicy BARNESDOB: Community Number: [id number] [facility] [id number] Repository Date:3025-87-53KJ [address]XQSFPX, [place] [address]HH: 05/11/2018 Tertiary NOT GIVENUNK Jagjit Insurance:SELF PAY [facility] Number: Effective Repository Date:2018-05-11 04/29/2018 GABRIELA M Primary GABRIELA M Robeline [id number] Insurance:MEDICARE BARNESDOB: Community [place] PART A [facility] [id number] Number: Repository [id number]: 330 [id number] [phone] () Date:2018-04-29 04/29/2018 Secondary GABRIELA M Robeline Insurance:AARPPolicy BARNESDOB: Community Number: [id number] Hospital [id number] Repository Date:1586-26-24HS [address]QJ, [place] [address]YW: 04/29/2018 Tertiary NOT GIVENUNK Robeline Insurance:SELF PAY [facility] Number: Effective Repository Date:2018-04-29 04/16/2018 GABRIELA Kevin Primary GABRIELA M Robeline [id number] Insurance:MEDICARE BARNESDOB: Community [place] PART A [facility] [id number] Number: Repository [id number]: 330 [id number] [phone] () Date:2018-04-16 04/16/2018 Secondary GABRIELA M Jagjit Insurance:AARPPolicy BARNESDOB: Community Number: [id number] Hospital [id number] Repository Date:2505-74-72JN [facility] [address], [place] [address]TE: 04/16/2018 Tertiary NOT GIVENUNK Robeline Insurance:SELF PAY [facility] Number: Effective Repository Date:2018-04-16 02/02/2018 GABRIELA M Primary GABRIELA M Jagjit [id number] Insurance:STATE FARM BARNESDOB: Community [place] INS[facility]ANCE [facility] [id number] Number: Repository [phone]: [phone] [id number] [phone] (HP) Date:2686-47-10WQ [address]AKW[address], [place] [address]JI: 02/02/2018 Secondary GABRIELA M Robeline Insurance:MEDICARE BARNESDOB: Community PART A [facility] [id number] Hospital Number: Repository [id number] Date:2018-02-02 02/02/2018 Tertiary GABRIELA M Jagjit Insurance:AARPPolicy BARNESDOB: Community Number: [id number] Hospital [id number] Repository Date:8280-22-94[address], [place] [address]VD: 02/02/2018 Tertiary NOT GIVENUNK Robeline Insurance:SELF PAY [facility] Number: Effective Repository Date:2018-02-02 08/05/2017 GABRIELA M Primary GABRIELA M Robeline [id number] Insurance:MEDICARE BARNESDOB: Community [place] PART A [facility] [id number], [place] Number: Repository [id number]: 330 [id number] [phone] () Date:2017-08-04 08/05/2017 Secondary GABRIELA M Jagjit Insurance:AARPPolicy BARNESDOB: [facility] Number: [id number] Hospital [id number] Repository Date:2620-85-94[address]ACJN, [place] [address]CQ: 08/05/2017 Tertiary NOT GIVENUNK Robeline Insurance:SELF PAY [facility] Number: Effective Repository Date:2017-08-05 08/04/2017 GABRIELA M Primary GABRIELA Brown Robeline [id number] Insurance:MEDICARE BARNESDOB: Community [place] PART A [facility] [id number], [place] Number: Repository [id number]: 330 [id number] [phone] (HP) Date:2017-08-04 08/04/2017 Secondary GABRIELA M Robeline Insurance:AARPPolicy BARNESDOB: [facility] Number: [id number] Hospital [id number] Repository Date:1450-34-69PT [address]JDPTI, [place] [address]FJ: 08/04/2017 Tertiary NOT GIVENUNK Robeline Insurance:SELF PAY [facility] Number: Effective Repository Date:2017-08-04 08/04/2017 GABRIELA M Primary GABRIELA Brown Robeline [id number] Insurance:MEDICARE BARNESDOB: Community [place] PART A [facility] [id number], [place] Number: Repository [address]Ylb: 330 [id number] [phone] (HP) Date:2017-08-04 08/04/2017 Secondary GABRIELA M Jagjit Insurance:AARPPolicy BARNESDOB: [facility] Number: [id number] Hospital [id number] Repository Date:1130-48-77XB [address]TBOD, [place] [address]NN: 08/04/2017 Tertiary NOT GIVENUNK Robeline Insurance:SELF PAY [facility] Hospital Number: Effective Repository Date:2017-08-04 08/04/2017 GABRIELA Kevin Primary GABRIELA M Jagjit [id number] Insurance:MEDICARE BARNESDOB: Community [place] PART A [facility] [id number] [place] Number[facility] Repository [address]Ini: 330 [id number] [phone] () Date:2017-08-04 08/04/2017 Secondary GABRIELA M Robeline Insurance:AARPPolicy BARNESDOB: Community Number: [id number] Hospital [id number] Repository Date:7918-06-79NK [address]DT[place]QCG, [place] [address]DA: 08/04/2017 Tertiary NOT GIVENUNK Robeline Insurance:SELF PAY [facility] Number: Effective Repository Date:2017-08-04 08/04/2017 GABRIELA Kevin Primary GABRIELA Brown Jagjit [id number] Insurance:MEDICARE BARNESDOB: Community [place] PART A [facility] [id number] [place] Number: Repository [address]Ytx: 330 [id number] [phone] () Date:2017-08-04 08/04/2017 Secondary GABRIELA M Jagjit Insurance:AARPPolicy BARNESDOB: Community Number: [id number] Hospital [id number] Repository Date:8280-11-24BV [address]JYBCYZX, [place] [address]YW: 08/04/2017 Tertiary NOT GIVENUNK Robeline Insurance:SELF PAY [facility] Number: Effective Repository Date:2017-08-04 07/04/2017 GABRIELA M Primary GABRIELA M Robeline [id number] Insurance:STATE BARNESDOB: [facility]ERRY [facility] Number: [id number], [place] [id number] Repository [address]Xni: 330) Date:2893-58-64[phone] () [id number] [place] [address]YX: 07/04/2017 Secondary GABRIELA M Robeline Insurance:MEDICARE BARNESDOB: Community PART A [facility] [id number] Hospital Number: Repository [id number] Date:2017-06-28 07/04/2017 Tertiary GABRIELA M Robeline Insurance:AARPPolicy BARNESDOB: Community Number: [id number] Hospital [id number] Repository Date:0246-20-53PB [address]SRRMABG, [place] [address]EL: 07/04/2017 Tertiary NOT GIVENUNK Robeline Insurance:SELF PAY [facility] Hospital Number: Effective Repository Date:2017-06-28 06/26/2017 GABRIELA M Primary GABRIELA M Robeline [id number] Insurance:STATE BARNESDOB: [facility]BERRY [facility] Number: [id number], [place] [id number] Repository [address]Fyr: 330) Date:3913-50-42HG [phone] () [address]6027INQMIGM, [place] [address]UT: 06/26/2017 Secondary GABRIELA Danielson Insurance:MEDICARE BARNESDOB: Community PART A [facility] [id number] Hospital Number: Repository [id number] Date:2017-06-16 06/26/2017 Tertiary GABRIELA Danielson Insurance:AARPPolicy [facility] Number: [id number] [facility] [id number] Repository Date:8480-85-63OE [address]YDWRUBV, [place] [address]FT: 06/26/2017 Tertiary NOT GIVENUNK Jagjit Insurance:SELF PAY [facility] Number: Effective Repository Date:2017-06-16
== END ==
PROVIDERS: Family Provider Family Medicine; PCP Family Medicine; Referring Provider Family Medicine; Visit Provider Family Medicine
DX: Z12.31 Encounter for screening mammogram for malignant neoplasm of breast (principal)
CPT/HCPCS: 77063; 77067

== ENCOUNTER → 2018-10-04 14:32 | Outpatient (CLI) | payer MEDICARE, OTHER, SELFPAY ==
[2018-10-04 15:44] LABS: Absolute Lymphocyte Count 1.48 X10^3/ul (0.83-4.51); Absolute Neutrophil Count 5.3 X10^3/uL (2.0-7.7); Basophil# 0.03 X10^3/uL; Basophil% 0.4 % (0-1); Eosinophil# 0.27 X10^3/uL; Eosinophils% 3.6 % (0-5); Hematocrit 40.4 % (37-47); Hemoglobin 13.2 g/dl (12.0-15.0); Lymphocyte # 1.48 X10^3/ul (4.0); Lymphocyte % 19.6 % (19-41); Mean Corp Hgb Conc 32.7 g/gl (32-36); Mean Corpuscular Hgb 30.6 pg (27.0-32.0); Mean Corpuscular Volume 93.7 fL (81-99); Mean Platelet Vol. 9.8 fl (6.2-12.0); Monocyte# 0.44 X10^3/uL; Monocyte% 5.8 % (0-10); Neutrophil # 5.32 X10^3/uL (2.7-7.7); Neutrophil % 70.3 % (47-70); Platelet Count 196 K/mm3 (150-450); RBC Distribution Width CV 13.8 % (11.6-14.6); RBC Distribution Width SD 47.6 fl (35.1-43.9); Red Blood Count 4.31 M/mm3 (4.2-5.4); White Blood Count 7.6 K/mm3 (4.4-11.0)
[2018-10-04 15:53] LABS: POSITIVE COUNT NO; POSITIVE DIFFERENTIAL NO; POSITIVE MORPHOLOGY NO
[2018-10-04 16:03] LABS: AST(SGOT) 17 U/L (15-37); Alanine Aminotransfer ALT/SGPT 23 U/L (13-56); Albumin, Serum 3.3 g/dL (3.2-5.0); Alkaline Phosphatase 48 U/L (45-117); Anion Gap 6 (5-15); BUN 29 mg/dL (7-18); Chloride 109 mmol/L (98-107); Creatinine, Serum 1.21 mg/dL (0.55-1.02); EST Glomerular Filtration Rate 46 mL/min (>60); Est Glom Filt Rate - Afr Amer 55 mL/min (>60); Globulin 3.2 g/dL (2.2-4.2); Glucose 144 mg/dL (74-106); Potassium 4.3 mmol/L (3.5-5.1); Protein, Total 6.5 g/dL (6.4-8.2); Sodium Level 143 mmol/L (136-145)
== END ==
PROVIDERS: Family Provider Family Medicine; PCP Family Medicine; Visit Provider Family Medicine
DX: R42 Dizziness and giddiness (principal)
CPT/HCPCS: 36415; 80053; 85025

== ENCOUNTER → 2019-07-08 09:38 | Outpatient (CLI) | payer MEDICARE, OTHER, SELFPAY ==
[2019-07-08 12:20] LABS: Absolute Lymphocyte Count 1.72 X10^3/uL (0.83-4.51); Absolute Neutrophil Count 6.7 X10^3/uL (2.0-7.7); Basophil# 0.08 X10^3/uL; Basophil% 0.8 % (0-1); Eosinophil# 0.27 X10^3/uL; Eosinophils% 2.9 % (0-5); Hematocrit 43.5 % (37-47); Lymphocyte # 1.72 X10^3/ul (4.0); Lymphocyte % 18.2 % (19-41); Mean Corp Hgb Conc 32.2 g/dL (32-36); Mean Corpuscular Hgb 30.8 pg (27.0-32.0); Mean Corpuscular Volume 95.8 fL (81-99); Mean Platelet Vol. 10.1 fl (6.2-12.0); Monocyte# 0.66 X10^3/uL; NRBC Flagged by Analyzer 0 % (0-5); Neutrophil # 6.66 X10^3/uL (2.7-7.7); Neutrophil % 70.6 % (47-70); Platelet Count 209 K/mm3 (150-450); RBC Distribution Width CV 12.9 % (11.6-14.6); RBC Distribution Width SD 45.4 fl (35.1-43.9); Red Blood Count 4.54 M/mm3 (4.2-5.4); White Blood Count 9.4 K/mm3 (4.4-11.0)
[2019-07-08 12:37] LABS: PTHIN 149.9 pg/mL (18.4-80.1)
[2019-07-08 12:40] LABS: ALB/GLOB Ratio 1.1 RATIO (0.9-2.4); AST(SGOT) 16 U/L (15-37); Alanine Aminotransfer ALT/SGPT 23 U/L (13-56); Albumin, Serum 3.6 g/dL (3.2-5.0); Alkaline Phosphatase 57 U/L (45-117); Anion Gap 5 (5-15); BUN 22 mg/dL (7-18); BUN/Creat Ratio 23.4 RATIO (10-20); Calcium,Total 8.7 mg/dL (8.5-10.1); Chloride 106 mmol/L (98-107); Cholesterol 177 mg/dL (200); Creatinine, Serum 0.94 mg/dL (0.55-1.02); EST Glomerular Filtration Rate 61 mL/min (>60); Est Glom Filt Rate - Afr Amer 74 mL/min (>60); Free T3 2.7 pg/mL (2.18-3.98); Globulin 3.3 g/dL (2.2-4.2); Glucose 103 mg/dL (74-106); High Density Lipoprotein 70 mg/dL; Potassium 4.3 mmol/L (3.5-5.1); Protein, Total 6.9 g/dL (6.4-8.2); Sodium Level 139 mmol/L (136-145); T4 Free Direct 1.15 ng/dL (0.76-1.46); Thyroid Stim Hormone (TSH) 1.36 uIU/mL (0.358-3.74); Triglycerides 79 mg/dL; Very Low Density Lipoprotein 16 mg/dL (5-40)
[2019-07-09 09:12] LABS: Vitamin B12 339 pg/mL (211-911); Vitamin D,25 Hydroxy 21.8 ng/mL
== END ==
PROVIDERS: PCP Family Medicine; Referring Provider Family Medicine; Visit Provider Family Medicine
DX: E55.9 Vitamin D deficiency, unspecified (principal); E78.5 Hyperlipidemia, unspecified; M81.0 Age-related osteoporosis without current pathological fracture; E53.8 Deficiency of other specified B group vitamins; E21.3 Hyperparathyroidism, unspecified; R53.83 Other fatigue
CPT/HCPCS: 36415; 80053; 80061; 82306; 82607; 83970; 84439; 84443; 84481; 85025

== ENCOUNTER → 2019-07-18 12:20 | Outpatient (CLI) | payer MEDICARE, OTHER, SELFPAY ==
--- NOTE | 2019-07-18 12:22 | BI_ITS ---
MAMMOGRAPHY - BILATERAL SCREENING REASON FOR EXAM: Female, 79 years old. Routine annual screening examination. PERTINENT HISTORY: Grandmother with breast cancer. TECHNIQUE: Digital bilateral breast luciana (3D mammographic acquisition) in the CC and MLO projections. 2-D mediolateral oblique (MLO) and craniocaudad (CC) views of both breasts were obtained. CAD: Full Field Digital Mammography with Computer Added Detection was performed. COMPARISON: Comparison is made with prior study dated November 28, 2018. FINDINGS: Breast Composition: The breasts are heterogeneously dense, which may obscure small masses. There are no dominant masses or suspicious calcifications. Stable benign-appearing bilateral axillary lymph nodes. No other significant abnormalities are identified. There has been no significant change since the prior study. BI/SCREEN MAMM (CAD) W/LUCIANA BILAT IMPRESSION: Stable bilateral screening mammogram. Yearly follow-up mammogram recommended. (A) ASSESSMENT CATEGORY: BIRADS Category 2: Benign. A letter regarding these results will be sent to the patient by the facility within 30 days. Approximately 10% of breast cancers are not detected by mammography. A normal mammogram should not delay biopsy of a clinically suspicious abnormality. [id number] Electronically Signed: Rahul Perez, at 14:01 EST , Service support ,
--- NOTE | 2019-07-18 12:23 | BD_ITS ---
STUDY: DUAL ENERGY X-RAY ABSORPTIOMETRY / DXA REASON FOR EXAM: Female, 79 years old. Unsure of rachna- age. Pat is 176.3# and 61 and quot; a loss of 3 and quot; per pat. Past hx of smoking but a long time ago. Patient gets back injections. Bipeds have a diuretic included. Patient has been on Fosamax for about 2 years now. Does not exercise. Hx of a right ankle fx. TECHNIQUE: Bone Mineral Density (BMD) measurements of lumbar spine and bilateral hips were obtained. COMPARISON: None. FINDINGS: Lumbar Spine (L1-L4): g/cm2 (2.016) / T-score (6.8) / Z-score (8.6) Findings are suggestive of normal bone density with a low fracture risk. Left Femur Total: g/cm2 (1.046) / T-score (0.3) / Z-score (2.3) Left Femoral Neck: g/cm2 (0.836) / T-score (-1.5) / Z-score (0.7) Right Femur Total: g/cm2 (0.989) / T-score (-0.1) / Z-score (1.8) Right Femoral Neck: g/cm2 (0.823) / T-score (-1.5) / Z-score (0.6) BD/Dexa Bone Density Study IMPRESSION: The patient is considered osteopenic as outlined below according to World Emir Organization (WHO) criteria with a moderate fracture risk. Reference Information: The T-score is the number of standard deviations above or below the standard which is normal for young adults at their peak bone mineral density. The World Health Organization (WHO) interprets the T-scores as follows: Above -1 Normal bone density Between -1 and -2.5 Osteopenia Equal to / or below -2.5 Osteoporosis As a practical clinical guideline, osteopenia may be graded as follows: Mild -1 through -1.5 Moderate -1.6 through -2.0 Severe -2.1 through -2.4 The Z-score is the number of standard deviations above or below age-matched controls. A Z-score of less than -1.5 would be considered abnormal. References: 1. NIH Osteoporosis and Related Bone Diseases http://www.osteo.org 2. International Society for Clinical Densitometry http://www.iscd.org 3. National Osteoporosis Foundation http://www.nof.org Electronically Signed: Rahul Perez, at 14:52 EST , Service support ,
== END ==
PROVIDERS: PCP Family Medicine; Referring Provider Family Medicine; Visit Provider Family Medicine
DX: Z12.31 Encounter for screening mammogram for malignant neoplasm of breast (principal); M81.0 Age-related osteoporosis without current pathological fracture
CPT/HCPCS: 77063; 77067; 77080

== ENCOUNTER → 2019-09-11 10:51 | Outpatient (CLI) | payer MEDICARE, OTHER, SELFPAY ==
[2019-09-11 12:17] LABS: Absolute Lymphocyte Count 1.37 X10^3/uL (0.83-4.51); Absolute Neutrophil Count 5.3 X10^3/uL (2.0-7.7); Basophil# 0.05 X10^3/uL; Basophil% 0.7 % (0-1); Eosinophil# 0.28 X10^3/uL; Eosinophils% 3.7 % (0-5); Hematocrit 43.7 % (37-47); Hemoglobin 14.3 g/dL (12.0-15.0); Lymphocyte # 1.37 X10^3/ul (4.0); Lymphocyte % 18.3 % (19-41); Mean Corp Hgb Conc 32.7 g/dL (32-36); Mean Corpuscular Hgb 30.4 pg (27.0-32.0); Mean Platelet Vol. 9.9 fl (6.2-12.0); Monocyte# 0.47 X10^3/uL; Monocyte% 6.3 % (0-10); NRBC Flagged by Analyzer 0 % (0-5); Neutrophil # 5.28 X10^3/uL (2.7-7.7); Neutrophil % 70.6 % (47-70); Platelet Count 220 K/mm3 (150-450); RBC Distribution Width CV 12.5 % (11.6-14.6); White Blood Count 7.5 K/mm3 (4.4-11.0)
[2019-09-11 12:43] LABS: ALB/GLOB Ratio 1.1 RATIO (0.9-2.4); AST(SGOT) 20 U/L (15-37); Alanine Aminotransfer ALT/SGPT 24 U/L (13-56); Albumin, Serum 3.7 g/dL (3.2-5.0); Alkaline Phosphatase 56 U/L (45-117); Anion Gap 5 (5-15); BUN 21 mg/dL (7-18); BUN/Creat Ratio 19.6 RATIO (10-20); Calcium,Total 9.3 mg/dL (8.5-10.1); Chloride 106 mmol/L (98-107); Creatinine, Serum 1.07 mg/dL (0.55-1.02); EST Glomerular Filtration Rate 53 mL/min (>60); Est Glom Filt Rate - Afr Amer 64 mL/min (>60); Ferritin 83 ng/mL (8-252); Globulin 3.5 g/dL (2.2-4.2); Glucose 186 mg/dL (74-106); Iron 89 ug/dL (50-170); Magnesium 1.8 mg/dL (1.6-2.6); Potassium 3.9 mmol/L (3.5-5.1); Protein, Total 7.2 g/dL (6.4-8.2); Sodium Level 141 mmol/L (136-145)
[2019-09-11 13:23] LABS: Vitamin D,25 Hydroxy 22.5 ng/mL
[2019-09-11 14:41] LABS: Vitamin B12 > 2000 pg/mL (211-911)
== END ==
PROVIDERS: PCP Family Medicine; Referring Provider Family Medicine; Visit Provider Family Medicine
DX: R53.83 Other fatigue (principal); E55.9 Vitamin D deficiency, unspecified; E53.8 Deficiency of other specified B group vitamins; R42 Dizziness and giddiness; D64.9 Anemia, unspecified; M79.10 Myalgia, unspecified site
CPT/HCPCS: 36415; 80053; 82306; 82607; 82728; 83540; 83735; 85025

== ENCOUNTER → 2020-04-07 10:14 | Emergency (ER) | payer MEDICARE, OTHER, SELFPAY ==
[2020-04-07] VITALS (8 sets, daily range): BP systolic 122–179; BP diastolic 57–101; PULSE 81–123; RESP 10–21; TEMP 36.2–36.9; O2SAT 96–100; BMI 35.6
[2020-04-07] MEDS: Morphine 4 MG/ML Syringe IV (10:28)
[2020-04-07] MEDS: fentaNYL 100 MCG/2 ML Ampul IV ×2 (10:42→12:20)
[2020-04-07] MEDS: Propofol 200 MG/20 ML Vial IV BOLUS ×2 (10:45→12:25)
--- NOTE | 2020-04-07 10:45 | RAD_ITS ---
INDICATION: Fall, open dislocation. EXAMINATION/TECHNIQUE: X-RAY - LEFT XR Ankle 2 Views 2 VIEWS COMPARISON: None. FINDINGS: There is posterior dislocation of the talus in relationship to the tibia with an oblique fracture of the lateral malleolus.. RAD/Ankle 2 Views IMPRESSION: Posterior dislocation of the talus with an oblique fracture of the lateral malleolus Electronically Signed: Shawn Elieser, at 11:17 EST Tel , Service support ,
[2020-04-07] MEDS: Propofol 200 MG/20 ML Vial 40 MG IV BOLUS (10:50)
--- NOTE | 2020-04-07 10:50 | RAD_ITS ---
INDICATION: Post reduction. EXAMINATION/TECHNIQUE: X-RAY - LEFT XR Ankle Min 3 Views 3 VIEWS COMPARISON: Left ankle x-rays obtained earlier on 04/07/2020 FINDINGS: There is an oblique fracture of the lateral malleolus. There appears to be a small cortical avulsion fracture off the posterior malleolus. There has been interval reduction of the previously noted posterior dislocation of the talus relative to the tibia. The ankle mortise is now in better anatomic position and alignment. RAD/Ankle min 3 Views IMPRESSION: Oblique fracture of the lateral malleolus with a small avulsion fracture off of the posterior malleolus and interval reduction of the previously noted posterior dislocation of the talus Electronically Signed: Shawn Mon, at 11:17 EST Tel , Service support ,
--- NOTE | 2020-04-07 11:08 | ED.RN ---
PT GAVE CONSENT FOR HER NEPHEW TO RECEIVE UPDATES. KAILYN GRAYSON [phone]
--- NOTE | 2020-04-07 11:16 | EKG12_ITS ---
Test Reason : FALL Blood Pressure : / mmHG Vent. Rate : 085 BPM Atrial Rate : 085 BPM P-R Int : 160 ms QRS Dur : 074 ms QT Int : 372 ms P-R-T Axes : 065 036 019 degrees QTc Int : 442 ms Normal sinus rhythm Normal ECG Confirmed by ROSI LEA, ZARIA ([id number]), social media editor ADEN HANNON ([id number]) on 04/10/2020 11:22:58 AM Referred By: JUANA Confirmed By:ZARIA ARANDA MD
--- NOTE | 2020-04-07 11:17 | ED.DCSUM_ITS ---
History of Present Illness Chief Complaint: Lower Extremity Injury Informant: Patient Onset: Today Current Severity: Severe Maximum Severity: Severe Narrative: Patient presents with an obvious dislocation involving the left ankle, indicates she was walking her dog she inadvertently slipped on wet grass turned her ankle noticed immediate blood protruding bones and she was brought in for evaluation. She has history of cardiac stent that is been stable, prior history for right ankle fracture treated by Dr. Castano, She has no complaints of head neck chest or abdominal pain just the left ankle pain she was feeling fine before she slipped on the grass Past Medical History - Allergies and Home Meds Allergies/Adverse Reactions: Allergies No Known Allergies Allergy (Verified 08/04/17 17:23) Primary Care Physician: Stephanie Partida DO [Primary Care Provider] - Past Medical History: - - Right ankle fracture cardiac stent Surgical History: - - Ankle surgery for a fracture Smoking Status: Former smoker - Family History Maternal Family History: Reports: - - No heart disease Review of Systems General: Denies: Chills, Fever, Sweats Eyes: Denies: Visual changes - bilaterally, Diplopia ENT: Denies: Rhinorrhea, Sore throat Cardiovascular: Denies: Chest pain, Palpitations Respiratory: Denies: Dyspnea, Cough, Dyspnea on exertion Gastrointestinal: Denies: Abdominal pain, Nausea, Vomiting, Diarrhea, Melena, Hematochezia Genitourinary: Denies: Dysuria, Hematuria, Frequency Musculoskeletal: Reports: Extremity Pain. Denies: Back pain Skin: Denies: Rash, Wounds Neurological: Denies: Headache, Weakness, Numbness Physical Exam Vital Signs/Narrative: Vital Signs Temp Pulse Pulse Pulse Pulse Pulse Resp 04/07/20 10:55 123 H 107 H 94 94 04/07/20 10:08 98.4 F 113 H 21 H Resp Resp Resp Resp BP BP BP 04/07/20 10:55 20 H 17 16 16 135/66 H 160/81 H 04/07/20 10:08 144/101 H BP BP Pulse Ox 04/07/20 10:55 122/57 H 122/57 H 04/07/20 10:08 100 General: Well nourished, Well developed, No Acute Distress Head: Normocephalic, Atraumatic Eyes: Perrl, EOMI ENT: Moist mucous membranes, No rhinorrhea Neck: Supple, Nontender Cardiovascular: Regular rate, Regular rhythm, No murmurs Respiratory: No distress, CTA bilaterally, Chest nontender Abdomen: Soft, Nontender, Nondistended, Normal bowel sounds Back: Nontender, Normal Inspection Extremities: - - To the medial side of the left ankle, she has a significant dislocation involving the left ankle and that both the fibula and the tibia appear to be protruding from the wound to the skin that is medial the tib-fib knee and hip are unremarkable the foot appears to be uninvolved Skin: Normal color, No rash Neurological: Alert, Oriented x3, Cranial nerves II-XII grossly intact, Normal Strength, Normal Sensation Psychological: Normal affect, Normal Mood Diagnostic/Tx/Re-eval - Medical Decision Making The patient is obviously in quite a bit of distress related to the pain she underwent pain management conscious sedation protocol with high flow oxygen, airway was evaluated, she last ate a few hours ago, she has no other complaints, she underwent progressive conscious sedation protocol using fentanyl and propofol when she was more sedated we were able to obtain x-rays and reduce the dislocation, she tolerated the procedure well maintained all of her vital signs and pulse ox to normal range no airway issues, she was noted to have a strong dorsalis pedis pulse afterwards, good cap refill to the toes, placed in a splint, post splint placement continued to have good capillary refill she was feeling better x-rays of the left ankle 1 view initially then subsequent multiple views showed obvious fracture dislocation left ankle interpreted by myself Multiple postreduction views x-rays interpreted by myself showed reduction, radiologist review of these x-rays generally concurred see those reports Is gone treatment protocol labs IV fluids antibiotics pain management will discuss with her orthopedic surgeons Post the procedure she is awake and alert her vital signs remained stable feeling better Disposition pending consultation with orthopedics Woke with Dr. Baljeet Swan orthopedics discussed the case in detail, he indicated it would be more appropriate for the patient to be transferred to a tertiary care center for further management, explained the above recommendation for transfer to the patient who agreed to [facility] transfer spoke with the [facility] transfer line, who referred me to the emergency department, spoke with Dr. Diaz ED attending discussed the case in detail he accepted the patient in transfer patient has remained hemodynamically stable here screening labs are pending we will not delay transfer she has been started on IV fluids IV pain management IV antibiotics As the patient was awaiting transfer she complained of pain after moving her leg down the splint she appears to have suffered a dislocation again through the medial skin defect, she was again sedated through conscious sedation protocol safely vital signs all maintained appropriately, the area was irrigated with saline, and then reduced without difficulty pulses dorsalis pedis present cap refill symmetric dressing splints reinforced, post reduction x-rays will be reviewed, she is resting comfortably the bed with no complaints now 2 view postreduction left ankle x-rays interpreted by myself show appropriate reduction in the fracture of the fibula, radiology generally agrees with that interpretation see the reports, Single view chest x-ray interpreted by myself shows nothing acute lungs well expanded no infiltrates, radiology generally agrees with that interpretation see the reports Transfer to [facility] ED Impression final open fracture dislocation left ankle Conscious sedation in the emergency department, Reduction of fracture dislocation in the emergency department ED Disposition - Plan for ED Patient: Disposition: [facility] Diagnosis: Open dislocation fracture left ankle con Referrals: Stephanie Partida DO [Primary Care Provider] -
[2020-04-07 11:31] LABS: Absolute Lymphocyte Count 1.14 X10^3/uL (0.83-4.51); Absolute Neutrophil Count 8.7 X10^3/uL (2.0-7.7); Basophil# 0.07 X10^3/uL; Basophil% 0.6 % (0-1); Eosinophils% 1.8 % (0-5); Hematocrit 41.3 % (37-47); Hemoglobin 13.7 g/dL (12.0-15.0); Lymphocyte # 1.14 X10^3/ul (4.0); Lymphocyte % 10.4 % (19-41); Mean Corp Hgb Conc 33.2 g/dL (32-36); Mean Corpuscular Hgb 30.7 pg (27.0-32.0); Mean Corpuscular Volume 92.6 fL (81-99); Mean Platelet Vol. 9.1 fl (6.2-12.0); Monocyte# 0.77 X10^3/uL; NRBC Flagged by Analyzer 0 % (0-5); Neutrophil # 8.73 X10^3/uL (2.7-7.7); Neutrophil % 79.7 % (47-70); Platelet Count 200 K/mm3 (150-450); RBC Distribution Width CV 12.3 % (11.6-14.6); RBC Distribution Width SD 41.7 fl (35.1-43.9); Red Blood Count 4.46 M/mm3 (4.2-5.4)
--- NOTE | 2020-04-07 11:37 | NURSING ---
CALLED [facility] FOR TRANSFER. PER DR JEAN
[2020-04-07] MEDS: Diphth,Pertuss(Acell),Tet Vac 0.5 ML Vial IM (11:46)
[2020-04-07 11:48] LABS: Anion Gap 6 (5-15); BUN 20 mg/dL (7-18); BUN/Creat Ratio 19.6 RATIO (10-20); Chloride 107 mmol/L (98-107); Creatinine, Serum 1.02 mg/dL (0.55-1.02); EST Glomerular Filtration Rate 55 mL/min (>60); Est Glom Filt Rate - Afr Amer 67 mL/min (>60); Estimated Creatinine Clearance 35.37 ml/min; Glucose 148 mg/dL (74-106); Sodium Level 139 mmol/L (136-145)
--- NOTE | 2020-04-07 11:52 | RAD_ITS ---
EXAM DESCRIPTION: PORTABLE AP CHEST CLINICAL HISTORY: 79 years Female, LEFT ANKLE FX, DYSPNEA LEFT ANKLE FX, DYSPNEA COMPARISON: Previous chest obtained on 04/29/2018 FINDINGS: The thorax is intact. The heart and mediastinum appear to be within normal limits. The lungs appear to be well areated without evidence of pneumonic consolidation or pleural effusion. RAD/Chest 1 View (Portable) IMPRESSION: Normal portable chest. Electronically Signed: Shawn Mon, at 12:12 EST Tel , Service support ,
--- NOTE | 2020-04-07 11:55 | ED.RN ---
ATTEMPTED TO CONTACT THE PT NEPHEW. LEFT A MESSAGE TO CONTACT THE ER
--- NOTE | 2020-04-07 12:17 | ED.RN ---
30 minute ETA for [facility]
--- NOTE | 2020-04-07 12:35 | RAD_ITS ---
STUDY: X-RAY - LEFT ANKLE REASON FOR EXAM: Post reduction left ankle fracture dislocation. TECHNIQUE: 2 view(s) of the ankle. COMPARISON: Radiographs obtained earlier 04/07/2020. FINDINGS: There is an oblique fracture of the distal fibula. There is reduction of the tibiotalar dislocation. Normal visualized talus and calcaneus. The visualized subtalar, talonavicular, calcaneocuboid and tarsal articulations are normal. There is an overlying cast. RAD/Ankle 2 Views IMPRESSION: Reduction of the tibiotalar dislocation. Distal fibular fracture. Electronically Signed: Sadi Joseph MD at 13:00 EST Tel , Service support ,
--- NOTE | 2020-04-07 12:37 | ED.RN ---
1223-pt yelling out and lt ankle dislocated again with bleeding to michelle. reported muscle spasm and went out. dr perera in and another conscious sedation preformed at bedside. kathleen well and post reduction films taken.
--- NOTE | 2020-04-07 12:38 | NURSING ---
sending als squad. additional 20 min
--- NOTE | 2020-04-07 12:41 | ED.RN ---
THIS NURSE CONTACTED PT NEPHEW TO UPDATE HIM ON HER PLAN OF CARE AND TRANSFER
--- NOTE | 2020-04-07 13:18 | ED.RN ---
report called and pt signed transfer consent. jewelry given to adonis arteaga here as pt close friend lt toes pink warm and mobile. a&ox3. belongings sent
== END | disposition short-term general hospital (02) ==
PROVIDERS: Emergency Provider Emergency Medicine; PCP Family Medicine
DX: S82.832B Other fracture of upper and lower end of left fibula, initial encounter for open fracture type I or II (principal); W01.0XXA Fall on same level from slipping, tripping and stumbling without subsequent striking against object, initial encounter; Y93.K1 Activity, walking an animal; Z95.5 Presence of coronary angioplasty implant and graft; Z87.891 Personal history of nicotine dependence
CPT/HCPCS: 27788; 71045; 73600; 73610; 80048; 85025; 87426; 90715; 93005; 99152; 99285; J7030; J0295

== ENCOUNTER 2020-04-10 21:15 | Inpatient (IN) | payer MEDICARE, OTHER, SELFPAY ==
[2020-04-07 10:08] VITALS: BMI 35.6
--- NOTE | 2020-04-10 21:20 | NURSING ---
Pt arrived via squad, assisted over to bed x4 assists, pt alert, oriented x3, skin warm and dry. Lt leg elevated on pillow.
[2020-04-10 21:41] VITALS: BP 155/66; PULSE 105; RESP 18; TEMP 37.4; O2SAT 91; BMI 34.6
--- NOTE | 2020-04-10 22:14 | PCM.HP.STD ---
Problem List (1) Debility Status: Acute (2) Open left ankle fracture Status: Acute (3) Dislocation of left ankle joint Status: Acute (4) Coronary artery disease Status: Chronic (5) Muscle spasm Status: Chronic (6) Osteoarthritis Status: Chronic (7) Hypertension Status: Chronic (8) Hyperlipidemia Status: Chronic History of Present Illness Date of Admission: 04/10/20 Chief Complaint: Here for rehabilitation, strengthening, prior to discharge home alone. 04/07/20 The patient is a 79 year old Female with below past medical history presented to [facility] with lower extremity injury. 04/07/20 EKG normal sinus rhythm, normal EKG. 04/07/20 Chest X-ray negative. 04/07/20 X-ray left ankle posterior dislocation of the talus in relationship to the tibia, oblique fracture lateral malleolus. Slipped on wet grass, turned left ankle. Blood protruding bones. Obvious left ankle dislocation. Left ankle reduced, splint placement under sedation. IV Fluids, IV Antibiotics, pain management. Left ankle dislocated again, reduced under sedation. Transfer to [facility]. 04/07/20 Admit to [facility]. Orthopedics performed ORIF left ankle fracture, Incision & Drainage left ankle. 04/10/20 Admit to TCU with debility, here for rehabilitation, strengthening, prior to discharge home alone. Past Medical History Past Medical History (Chronic Problems): Chronic Problems Chronic back pain (Chronic) Coronary artery disease (Chronic) Muscle spasm (Chronic) Osteoarthritis (Chronic) CAD (coronary artery disease) (Chronic) Hypertension (Chronic) Hyperlipidemia (Chronic) Allergies No Known Allergies Allergy (Verified 08/04/17 17:23) Home Medications: Ambulatory Orders Medication Instructions Recorded Atenolol [Tenormin] 25 mg PO BID 07/09/16 Isosorbide Mononitrate [Isosorbide 60 mg PO DAILY 07/09/16 Mononitrate ER] Amlodipine [Norvasc] 10 mg PO DAILY 12/10/16 Benazepril HCl 40 mg PO DAILY 12/10/16 Hydrochlorothiazide [Hctz] 25 mg PO DAILY 12/10/16 Simvastatin 20 mg PO QHS 12/10/16 Baclofen 5 - 10 mg PO BID 08/04/17 Hydrocodone Bitart/Apap 5-325 1 tablet PO Q6H PRN PRN 08/04/17 [[place] 5/325] Aspirin [Aspirin EC] 81 mg PO DAILY 04/10/20 Meloxicam 15 mg PO DAILY 04/10/20 Nystatin [Mycostatin] 1 applic TOPICAL BID 04/10/20 Surgical History: angioplasty - Cardiac stent., - - Right ankle surgery for a fracture, ORIF/I&D left ankle fracture Psychiatric History: No pertinent psych hx AVIONICS SYSTEMS 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: No pertinent AVIONICS SYSTEMS INTEGRATION SPECIALIST history Lives: Alone Smoking Status: Former smoker Tobacco Use: Non-smoker Alcohol: None Drugs: None - *Family History Maternal History Items: - - No heart disease Review of Systems Constitutional: Denies: Chills, Fever, Weight Change HEENT: Denies: Head Aches, Sinus Congestion, Sinus Drainage Cardiovascular: Denies: Chest Pain, Palpitations Respiratory: Denies: Cough, Shortness of breath at rest, Sputum production Gastrointestinal: Denies: Abdominal Pain, Nausea, Vomiting Genitourinary: Denies: Dysuria Musculoskeletal: Denies: Joint Pain, Joint Tenderness Skin: Denies: Rash, Wounds Neurological: Denies: Numbness, Tingling, Focal weakness Psychiatric: Denies: Anxiety, Depression, Homicidal Ideations, Suicidal Ideations Hematologic/ Lymphatic: Denies: Easy Bruising, Easy Bleeding VTE Information - Inpt Only VTE Present on Admission: No VTE Mechan Device Prophylaxis: Knee High RAYMON Hose VTE Pharm Prophylaxis ordered?: Yes Patient Problems: Active and Suspected Problems Debility (Acute) Open left ankle fracture (Acute) Dislocation of left ankle joint (Acute) - Physical Exam Vitals/I&O's: Body Mass Index (BMI) 35.6 General: Alert, Oriented x3, Cooperative HEENT: Atraumatic, PERRLA, EOMI, Normocephalic Neck: Supple, No JVD, Negative Carotid Bruits Lungs: Clear to auscultation, Normal air movement Cardiovascular: Regular rate, No murmurs Abdomen: Bowel Sounds Present, Soft, Non Tender Extremities: No edema, Capillary Refill Less than 3 Seconds, - - Left ankle dressed. Skin: No rashes, No breakdown Musculoskeletal: No Tenderness to Palpation of Joints or Extremities Neurological: Cranial nerves II-XII grossly intact Psych/Mental Status: Normal Affect, Appropriate Current Medications Hydrocodone Bitart/Acetaminophen (Hydrocodone Bitartrate/Apap 5/325 Tablet) 1 tablet PO Q6H PRN PRN PRN Reason: Pain Score 1-10 Stop: 04/17/20 21:55 Amlodipine Besylate (Amlodipine 10 Mg Tablet) 10 mg PO DAILY [facility] Aspirin (Aspirin E.C. 81 Mg Tablet) 81 mg PO DAILY@0800 [facility] Atenolol (Atenolol 25 Mg Tablet) 25 mg PO BID [facility] Atorvastatin Calcium (Atorvastatin Calcium 10 Mg Tablet) 10 mg PO QHS [facility] Baclofen (Baclofen 10 Mg Tablet) 5 - 10 mg PO BID PRN PRN PRN Reason: muscle spasm Hydrochlorothiazide (Hydrochlorothiazide 25 Mg Tablet) 25 mg PO DAILY@0800 [facility] Isosorbide Mononitrate (Isosorbide Mononitrate 60 Mg Tablet) 60 mg PO DAILY [facility] Lisinopril (Lisinopril 40 Mg Tablet) 40 mg PO DAILY [facility] Meloxicam (Meloxicam 15 Mg Tablet) 15 mg PO DAILY [facility] Nystatin (Nystatin Ointment) 1 applic TOPICAL BID [facility]; Protocol Senna/Docusate Sodium (Senna/Docusate Sodium 1 Tablet) 1 tablet PO BID [facility] Assessment/Plan All Active Problems Unstable angina (Acute) Debility (Acute) Open left ankle fracture (Acute) Dislocation of left ankle joint (Acute) 79 year old female with below past medical history hospitalized for left ankle open fracture/dislocation, underwent ORIF/I&D 04/07/20 per Orthopedics, admitted to TCU with debility, here for rehabilitation, strengthening, prior to discharge home alone. Debility - PT/OT. Pain - Tylenol 1000MG Q6H PRN pain (1-3), Tramadol 50MG Q6H PRN pain (4-5), Oxycodone 10MG Q4H PRN pain (6-10) Bowel - Miralax 17GM daily, Senna/colace 1 tablet BID, MOM 30ML daily PRN, Dulcolax 10MG [place] daily PRN. Adult immunization - Administer Prevnar 13, Pneumovax 23, Fluzone as appropriate. DVT prophylaxis - Lovenox 30MG SC daily. Hypertension - Atenolol 25MG BID, Lisinopril 40MG daily, Amlodipine 10MG daily, HCTZ 25MG daily. Coronary Artery Disease s/p stent - Atenolol 25MG BID, Lisinopril 40MG daily, Isosorbide mononitrate 60MG daily, Aspirin 81MG daily. Hyperlipidemia - Atorvastatin 10MG QHS. Muscle spasm - Baclofen 10MG BID. Osteoarthritis - Meloxicam 15MG daily. Tinea Corporis - Nystatin topical BID.
[2020-04-10 23:09] VITALS: BMI 34.6
[2020-04-10] MEDS: Baclofen 10 MG Tablet PO (23:21)
[2020-04-10] MEDS: Atorvastatin Calcium 10 MG Tablet PO (23:22)
[2020-04-11] MEDS: HYDROcodone Bitartrate/Apap 5/325 Tablet PO ×2 (00:05→06:50)
[2020-04-11] MEDS: Baclofen 10 MG Tablet PO (05:30)
[2020-04-11 05:35] VITALS: BP 154/58; PULSE 110; RESP 19; TEMP 37.1; O2SAT 96
[2020-04-11] MEDS: Polyethylene Glycol 3350 17 GM PACKET PO (05:36)
[2020-04-11] MEDS: Enoxaparin 30 MG/0.3 ML Syringe SC (05:37)
[2020-04-11] MEDS: Lisinopril 40 MG Tablet PO (05:37)
[2020-04-11] MEDS: Isosorbide Mononitrate 60 MG Tablet PO (05:37)
[2020-04-11] MEDS: Meloxicam 15 MG Tablet PO (05:37)
[2020-04-11] MEDS: Senna/Docusate Sodium 1 Tablet PO ×2 (05:37→17:16)
[2020-04-11] MEDS: amLODIPine 10 MG Tablet PO (05:37)
[2020-04-11] MEDS: Atenolol 25 MG Tablet PO ×2 (05:37→17:16)
[2020-04-11] MEDS: Menthol/Lanolin/Calamine/Znox 113 GM Tube 1 APPLIC TOPICAL ×2 (05:42→17:16)
[2020-04-11] MEDS: Aspirin E.C. 81 MG Tablet PO (08:04)
[2020-04-11] MEDS: hydroCHLOROthiazide 25 MG Tablet PO (08:04)
[2020-04-11 08:11] LABS: Anion Gap 5 (5-15); BUN 27 mg/dL (7-18); Calcium,Total 8.6 mg/dL (8.5-10.1); Chloride 104 mmol/L (98-107); Creatinine, Serum 1.08 mg/dL (0.55-1.02); EST Glomerular Filtration Rate 52 mL/min (>60); Est Glom Filt Rate - Afr Amer 63 mL/min (>60); Estimated Creatinine Clearance 33.41 ml/min; Glucose 143 mg/dL (74-106); Sodium Level 137 mmol/L (136-145)
[2020-04-11 08:44] LABS: Absolute Lymphocyte Count 1.14 X10^3/uL (0.83-4.51); Absolute Neutrophil Count 9.6 X10^3/uL (2.0-7.7); Basophil# 0.04 X10^3/uL; Basophil% 0.3 % (0-1); Eosinophil# 0.14 X10^3/uL; Eosinophils% 1.1 % (0-5); Hematocrit 35.9 % (37-47); Hemoglobin 11.2 g/dL (12.0-15.0); Lymphocyte # 1.14 X10^3/ul (4.0); Lymphocyte % 9.3 % (19-41); Mean Corp Hgb Conc 31.2 g/dL (32-36); Mean Corpuscular Hgb 30.3 pg (27.0-32.0); Mean Platelet Vol. 10.3 fl (6.2-12.0); Monocyte# 1.31 X10^3/uL; Monocyte% 10.7 % (0-10); NRBC Flagged by Analyzer 0 % (0-5); Neutrophil # 9.58 X10^3/uL (2.7-7.7); Platelet Count 191 K/mm3 (150-450); RBC Distribution Width CV 12.7 % (11.6-14.6); RBC Distribution Width SD 44.7 fl (35.1-43.9); White Blood Count 12.3 K/mm3 (4.4-11.0)
[2020-04-11] MEDS: Tuberculin,Purif.prot.deriv. 50 TU/ML Vial 5 ML ID (12:24)
[2020-04-11] MEDS: oxyCODONE 5 MG Tablet 10 MG PO (12:31)
[2020-04-11] MEDS: Acetaminophen 500 MG Tablet 1000 MG PO (12:32)
[2020-04-11 14:52] VITALS: BP 130/49; PULSE 91; RESP 16; TEMP 36.7; O2SAT 94
[2020-04-11] MEDS: traMADol 50 MG Tablet PO (17:13)
[2020-04-11 18:03] VITALS: PULSE 91; RESP 16; O2SAT 94
[2020-04-11] MEDS: Atorvastatin Calcium 10 MG Tablet PO (22:23)
[2020-04-12] MEDS: oxyCODONE 5 MG Tablet 10 MG PO ×5 (01:26→23:25)
[2020-04-12 05:35] VITALS: BP 129/59; PULSE 90; RESP 16; TEMP 37.4; O2SAT 95
[2020-04-12] MEDS: Isosorbide Mononitrate 60 MG Tablet PO (05:37)
[2020-04-12] MEDS: Polyethylene Glycol 3350 17 GM PACKET PO (05:37)
[2020-04-12] MEDS: Atenolol 25 MG Tablet PO ×2 (05:37→17:44)
[2020-04-12] MEDS: Enoxaparin 30 MG/0.3 ML Syringe SC (05:37)
[2020-04-12] MEDS: Senna/Docusate Sodium 1 Tablet PO ×2 (05:38→17:44)
[2020-04-12] MEDS: amLODIPine 10 MG Tablet PO (05:38)
[2020-04-12] MEDS: Lisinopril 40 MG Tablet PO (05:38)
[2020-04-12] MEDS: Meloxicam 15 MG Tablet PO (05:38)
[2020-04-12] MEDS: Menthol/Lanolin/Calamine/Znox 113 GM Tube 1 APPLIC TOPICAL ×2 (05:46→17:44)
[2020-04-12] MEDS: hydroCHLOROthiazide 25 MG Tablet PO (08:09)
[2020-04-12] MEDS: Aspirin E.C. 81 MG Tablet PO (08:10)
[2020-04-12 12:10] VITALS: PULSE 79; RESP 18; O2SAT 92
[2020-04-12 15:54] VITALS: BP 129/60; PULSE 79; RESP 18; TEMP 36.7; O2SAT 92
[2020-04-12] MEDS: Atorvastatin Calcium 10 MG Tablet PO (20:40)
[2020-04-13] MEDS: Baclofen 10 MG Tablet PO (02:05)
[2020-04-13 03:51] VITALS: BP 150/63; PULSE 83; RESP 16; TEMP 37.1; O2SAT 94
[2020-04-13] MEDS: oxyCODONE 5 MG Tablet 10 MG PO ×3 (03:56→23:16)
[2020-04-13] MEDS: Enoxaparin 30 MG/0.3 ML Syringe SC (04:06)
[2020-04-13] MEDS: Lisinopril 40 MG Tablet PO (04:07)
[2020-04-13] MEDS: amLODIPine 10 MG Tablet PO (04:07)
[2020-04-13] MEDS: Polyethylene Glycol 3350 17 GM PACKET PO (04:07)
[2020-04-13] MEDS: Senna/Docusate Sodium 1 Tablet PO ×2 (04:07→18:39)
[2020-04-13] MEDS: Atenolol 25 MG Tablet PO ×2 (04:07→18:39)
[2020-04-13] MEDS: Isosorbide Mononitrate 60 MG Tablet PO (04:07)
[2020-04-13] MEDS: Meloxicam 15 MG Tablet PO (04:08)
[2020-04-13] MEDS: Menthol/Lanolin/Calamine/Znox 113 GM Tube 1 APPLIC TOPICAL ×2 (04:11→18:38)
[2020-04-13] MEDS: Aspirin E.C. 81 MG Tablet PO (08:12)
[2020-04-13] MEDS: hydroCHLOROthiazide 25 MG Tablet PO (08:12)
[2020-04-13] MEDS: traMADol 50 MG Tablet PO (10:44)
[2020-04-13 13:30] VITALS: BP 103/52; PULSE 71; RESP 17; TEMP 36.3; O2SAT 92
--- NOTE | 2020-04-13 15:06 | PHA.CONS_ITS ---
<Tori Alicea - Last Filed: 04/13/20 15:06> Progress Note - Pharmacy Subjective: TCU Admission Objective: Allergies No Known Allergies Allergy (Verified 08/04/17 17:23) Current Medications Generic Name Dose Route Start Last Admin Trade Name Dawsonq PRN Reason Stop Dose Admin Acetaminophen 1,000 mg 04/11/20 08:29 04/11/20 12:32 Acetaminophen 500 Mg Tablet PO 1,000 mg Q6H PRN Administration Pain Score 1-3 Amlodipine Besylate 10 mg 04/11/20 06:00 04/13/20 04:07 Amlodipine 10 Mg Tablet PO 10 mg DAILY NISHA Administration Aspirin 81 mg 04/11/20 08:00 04/13/20 08:12 Aspirin E.C. 81 Mg Tablet PO 81 mg DAILY@0800 [facility] Administration Atenolol 25 mg 04/11/20 06:00 04/13/20 04:07 Atenolol 25 Mg Tablet PO 25 mg BID NISHA Administration Atorvastatin Calcium 10 mg 04/10/20 22:00 04/12/20 20:40 Atorvastatin Calcium 10 Mg Tablet PO 10 mg QHS NISHA Administration Baclofen 10 mg 04/10/20 22:39 04/13/20 02:05 Baclofen 10 Mg Tablet PO 10 mg BID PRN PRN Administration muscle spasm Bisacodyl 10 mg 04/10/20 22:38 Bisacodyl 10 Mg Suppository RECTAL DAILY PRN Constipation Calamine/Phenol 1 applic 04/11/20 06:00 04/13/20 04:11 Menthol/Lanolin/Calamine/Znox 113 Gm Tube TOPICAL 1 applicatio BID NISHA Administration Protocol Enoxaparin Sodium 30 mg 04/11/20 06:00 04/13/20 04:06 Enoxaparin 30 Mg/0.3 Ml Syringe SC 30 mg DAILY@0600 NISHA Administration Hydrochlorothiazide 25 mg 04/11/20 08:00 04/13/20 08:12 Hydrochlorothiazide 25 Mg Tablet PO 25 mg DAILY@0800 [facility] Administration Hydrocortisone 1 applic 04/13/20 08:22 Hydrocortisone 2.5% Crm TOPICAL BID PRN PRN RASH/TOPICAL IRRITATION Protocol Isosorbide Mononitrate 60 mg 04/11/20 06:00 04/13/20 04:07 Isosorbide Mononitrate 60 Mg Tablet PO 60 mg DAILY NISHA Administration Lisinopril 40 mg 04/11/20 06:00 04/13/20 04:07 Lisinopril 40 Mg Tablet PO 40 mg DAILY NISHA Administration Magnesium Hydroxide 30 ml 04/10/20 22:38 Magnesium Hydroxide 30 Ml Udc PO DAILY PRN Constipation Meloxicam 15 mg 04/11/20 06:00 04/13/20 04:08 Meloxicam 15 Mg Tablet PO 15 mg DAILY [facility] Administration Nystatin 1 applic 04/11/20 06:00 04/13/20 04:12 Nystatin Ointment TOPICAL Not Given BID [facility] Protocol Oxycodone HCl 10 mg 04/11/20 07:32 04/13/20 14:17 Oxycodone 5 Mg Tablet PO 10 mg Q4H PRN PRN Administration Pain Score 6-10 Polyethylene Glycol 17 gm 04/11/20 06:00 04/13/20 04:07 Polyethylene Glycol 3350 17 Gm Packet PO 17 gm DAILY [facility] Administration Senna/Docusate Sodium 1 tablet 04/11/20 06:00 04/13/20 04:07 Senna/Docusate Sodium 1 Tablet PO 1 tablet BID [facility] Administration Tramadol HCl 50 mg 04/11/20 08:29 04/13/20 10:44 Tramadol 50 Mg Tablet PO 50 mg Q6H PRN PRN Administration Pain Score 4-5 Tuberculin PPD 5 tu 04/18/20 10:00 Tuberculin,Purif.Prot.Deriv. 50 Tu/Ml Vial ID 04/18/20 10:01 X1 ONE Problem List Debility (Acute) Open left ankle fracture (Acute) Dislocation of left ankle joint (Acute) Coronary artery disease (Chronic) Muscle spasm (Chronic) Osteoarthritis (Chronic) Hypertension (Chronic) Hyperlipidemia (Chronic) Vital Signs Temp Pulse Resp BP Pulse Ox 97.4 F L 71 17 103/52 L 92 04/13/20 13:30 04/13/20 13:30 04/13/20 13:30 04/13/20 13:30 04/13/20 13:30 Oxygen Delivery Method Room Air Weight: 85.9 kg Body Mass Index (BMI) 34.6 Sodium 137 mmol/L (136-145) 04/11/20 07:29 Potassium 4.0 mmol/L (3.5-5.1) 04/11/20 07:29 Chloride 104 mmol/L (98-107) 04/11/20 07:29 Carbon Dioxide 28.0 mmol/L (21.0-32.0) 04/11/20 07:29 Anion Gap 5 (5-15) 04/11/20 07:29 BUN 27 mg/dL (7-18) H 04/11/20 07:29 Creatinine 1.08 mg/dL (0.55-1.02) H 04/11/20 07:29 Est GFR (MDRD) Af Amer 63 mL/min (>60) 04/11/20 07:29 Est GFR (MDRD) Non-Af 52 mL/min (>60) L 04/11/20 07:29 BUN/Creatinine Ratio 25.0 RATIO (10-20) H 04/11/20 07:29 Glucose 143 mg/dL (74-106) H 04/11/20 07:29 Assessment/Plan: *1. Pain: acetaminophen 1000mg PO Q6H PRN pain 1-3/10, tramadol 50mg PO Q6H PRN pain 4-5/10, and oxycodone 10mg PO Q4H PRN pain 6-10/10. Please consider changing acetaminophen to 1000mg PO TID to promote multimodal analgesia as patient is requiring frequent doses of oxycodone. Please continue to monitor for S/S of increased pain, PRN usage, constipation and respiratory depression. Teresita godinez. 2. DVT prophylaxis: enoxaparin 40mg SC daily. Dose increased from 30mg due to CrCl of 42.9 ml/min using adjusted body weight. Please continue to monitor for S/S of bleeding/DVT, hemoglobin (last 11.2g/dL) and platelets (last 191,000). 3. Hypertension/CAD s/p stent: atenolol 25mg PO BID, lisinopril 40mg PO daily, amlodipine 10mg PO daily, hydrochlorothiazide 25mg PO daily, isosorbide mono nitrate 60mg PO daily, and aspirin 81mg PO DAILYCM. Please continue to monitor HR (last 71), BP (last 103/52), potassium (last 4mmol/L), renal function, swelling, flushed face, and S/S of bleeding. 4. Hyperlipidemia: atorvastatin 10mg PO QHS. Please continue to monitor for muscle pain and lipid panels as clinically appropriate. 5. Muscle spasms: baclofen 10mg PO BID PRN muscle spasm. Please continue to monitor PRN usage. 6. Osteoarthritis: meloxicam 15mg PO daily. Please continue to monitor for pain, upset stomach and S/S of bleeding. Psychotropic Medications: None Unnecessary Medications: None Bowel Regimen: Miralax 17gm PO daily, senna/docusate 1T PO BID, MOM 30mL PO daily PRN constipation, and bisacodyl 10mg WI daily PRN constipation. Please continue to monitor for S/S of constipation and PRN usage. Date of Note:: 04/13/20 - Provider Comments Provider responsibility: Provider responsible to enter orders to implement recommendations <Iglesia Cuba Chi - Last Filed: 04/13/20 17:12> Progress Note - Pharmacy Subjective: [] Objective: Allergies No Known Allergies Allergy (Verified 08/04/17 17:23) Current Medications Generic Name Dose Route Start Last Admin Trade Name Freq PRN Reason Stop Dose Admin Acetaminophen 1,000 mg 04/11/20 08:29 04/11/20 12:32 Acetaminophen 500 Mg Tablet PO 1,000 mg Q6H PRN Administration Pain Score 1-3 Amlodipine Besylate 10 mg 04/11/20 06:00 04/13/20 04:07 Amlodipine 10 Mg Tablet PO 10 mg DAILY NISHA Administration Aspirin 81 mg 04/11/20 08:00 04/13/20 08:12 Aspirin E.C. 81 Mg Tablet PO 81 mg DAILY@0800 NISHA Administration Atenolol 25 mg 04/11/20 06:00 04/13/20 04:07 Atenolol 25 Mg Tablet PO 25 mg BID NISHA Administration Atorvastatin Calcium 10 mg 04/10/20 22:00 04/12/20 20:40 Atorvastatin Calcium 10 Mg Tablet PO 10 mg QHS NISHA Administration Baclofen 10 mg 04/10/20 22:39 04/13/20 02:05 Baclofen 10 Mg Tablet PO 10 mg BID PRN PRN Administration muscle spasm Bisacodyl 10 mg 04/10/20 22:38 Bisacodyl 10 Mg Suppository RECTAL DAILY PRN Constipation Calamine/Phenol 1 applic 04/11/20 06:00 04/13/20 04:11 Menthol/Lanolin/Calamine/Znox 113 Gm Tube TOPICAL 1 applicatio BID NISHA Administration Protocol Enoxaparin Sodium 40 mg 04/14/20 06:00 Enoxaparin 40 Mg/0.4 Ml Syringe SC DAILY@0600 [facility] Hydrochlorothiazide 25 mg 04/11/20 08:00 04/13/20 08:12 Hydrochlorothiazide 25 Mg Tablet PO 25 mg DAILY@0800 [facility] Administration Hydrocortisone 1 applic 04/13/20 08:22 Hydrocortisone 2.5% Crm TOPICAL BID PRN PRN RASH/TOPICAL IRRITATION Protocol Isosorbide Mononitrate 60 mg 04/11/20 06:00 04/13/20 04:07 Isosorbide Mononitrate 60 Mg Tablet PO 60 mg DAILY [facility] Administration Lisinopril 40 mg 04/11/20 06:00 04/13/20 04:07 Lisinopril 40 Mg Tablet PO 40 mg DAILY [facility] Administration Magnesium Hydroxide 30 ml 04/10/20 22:38 Magnesium Hydroxide 30 Ml Udc PO DAILY PRN Constipation Meloxicam 15 mg 04/11/20 06:00 04/13/20 04:08 Meloxicam 15 Mg Tablet PO 15 mg DAILY [facility] Administration Methylprednisolone 4 mg 04/13/20 17:10 Methylprednisolone Dosepak 4 Mg Box PO UD [facility] Nystatin 1 applic 04/11/20 06:00 04/13/20 04:12 Nystatin Ointment TOPICAL Not Given BID [facility] Protocol Oxycodone HCl 10 mg 04/11/20 07:32 04/13/20 14:17 Oxycodone 5 Mg Tablet PO 10 mg Q4H PRN PRN Administration Pain Score 6-10 Polyethylene Glycol 17 gm 04/11/20 06:00 04/13/20 04:07 Polyethylene Glycol 3350 17 Gm Packet PO 17 gm DAILY [facility] Administration Senna/Docusate Sodium 1 tablet 04/11/20 06:00 04/13/20 04:07 Senna/Docusate Sodium 1 Tablet PO 1 tablet BID [facility] Administration Tramadol HCl 50 mg 04/11/20 08:29 04/13/20 10:44 Tramadol 50 Mg Tablet PO 50 mg Q6H PRN PRN Administration Pain Score 4-5 Tuberculin PPD 5 tu 04/18/20 10:00 Tuberculin,Purif.Prot.Deriv. 50 Tu/Ml Vial ID 04/18/20 10:01 X1 ONE Problem List Debility (Acute) Open left ankle fracture (Acute) Dislocation of left ankle joint (Acute) Coronary artery disease (Chronic) Muscle spasm (Chronic) Osteoarthritis (Chronic) Hypertension (Chronic) Hyperlipidemia (Chronic) Vital Signs Temp Pulse Resp BP Pulse Ox 97.4 F L 71 17 103/52 L 92 04/13/20 13:30 04/13/20 13:30 04/13/20 13:30 04/13/20 13:30 04/13/20 13:30 Oxygen Delivery Method Room Air Weight: 85.9 kg Body Mass Index (BMI) 34.6 Sodium 137 mmol/L (136-145) 04/11/20 07:29 Potassium 4.0 mmol/L (3.5-5.1) 04/11/20 07:29 Chloride 104 mmol/L (98-107) 04/11/20 07:29 Carbon Dioxide 28.0 mmol/L (21.0-32.0) 04/11/20 07:29 Anion Gap 5 (5-15) 04/11/20 07:29 BUN 27 mg/dL (7-18) H 04/11/20 07:29 Creatinine 1.08 mg/dL (0.55-1.02) H 04/11/20 07:29 Est GFR (MDRD) Af Amer 63 mL/min (>60) 04/11/20 07:29 Est GFR (MDRD) Non-Af 52 mL/min (>60) L 04/11/20 07:29 BUN/Creatinine Ratio 25.0 RATIO (10-20) H 04/11/20 07:29 Glucose 143 mg/dL (74-106) H 04/11/20 07:29 Assessment/Plan: Psychotropic Medications: Unnecessary Medications: Bowel Regimen: - Provider Comments Provider responsibility: Provider responsible to enter orders to implement recommendations Provider Comments to Recommendations by Pharmacy: Agree
--- NOTE | 2020-04-13 15:25 | RAD_ITS ---
STUDY: X-RAY - LEFT KNEE REASON FOR EXAM: Female, 79 years old. Increasing pain and swelling. Warm. TECHNIQUE: 3 view(s) of the knee. COMPARISON: None. FINDINGS: Normal visualized distal femur. Normal visualized proximal tibia and fibula. Normal proximal tibiofibular articulation. There is no acute fracture, dislocation or destructive osseous pathology. There is mild degenerative arthrosis of the medial femorotibial compartment. There is mild degenerative arthrosis of the lateral femorotibial compartment. There are calcifications in both the medial and lateral menisci. There is moderate degenerative arthrosis of the patellofemoral articulation. There is a soft tissue prominence in the suprapatellar region suggesting a small volume joint effusion. The soft tissue structures are unremarkable. RAD/Knee 3 Views IMPRESSION: 1. 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 2. Calcifications of the menisci. Question CPPD. Electronically Signed: Sean Peoples DO at 17:02 EST Tel [phone], Service support ,
--- NOTE | 2020-04-13 16:07 | CASEMGMT ---
Social Work Discussed code status with pt. Pt confirmed DNR-CC. MOLST form reviewed, communication to , placed in chart. Blanca Martinez, BUMPER STRAIGHTENER STOREKEEPER ENGINEERING
--- NOTE | 2020-04-13 17:19 | NURSING ---
xray done of RT knee d/t pain & edema. new order for prednisone taper d/t arthritis.
[2020-04-13] MEDS: MethylPREDNISolone DosePak 4 MG BOX PO ×2 (18:38→20:14)
[2020-04-13] MEDS: Atorvastatin Calcium 10 MG Tablet PO (20:14)
[2020-04-14 05:38] VITALS: BP 138/66; PULSE 77; RESP 18; TEMP 36.4; O2SAT 95
[2020-04-14] MEDS: Nystatin Powder 15gm Bottle 1 APPLIC TOPICAL ×2 (05:39→21:03)
[2020-04-14] MEDS: Enoxaparin 40 MG/0.4 ML Syringe SC (05:40)
[2020-04-14] MEDS: Polyethylene Glycol 3350 17 GM PACKET PO (05:41)
[2020-04-14] MEDS: amLODIPine 10 MG Tablet PO (05:42)
[2020-04-14] MEDS: Atenolol 25 MG Tablet PO ×2 (05:42→16:47)
[2020-04-14] MEDS: Senna/Docusate Sodium 1 Tablet PO ×2 (05:42→16:48)
[2020-04-14] MEDS: Isosorbide Mononitrate 60 MG Tablet PO (05:42)
[2020-04-14] MEDS: Meloxicam 15 MG Tablet PO (05:42)
[2020-04-14] MEDS: Lisinopril 40 MG Tablet PO (05:42)
[2020-04-14] MEDS: Menthol/Lanolin/Calamine/Znox 113 GM Tube 1 APPLIC TOPICAL ×2 (05:46→16:46)
[2020-04-14] MEDS: Aspirin E.C. 81 MG Tablet PO (08:14)
[2020-04-14] MEDS: MethylPREDNISolone DosePak 4 MG BOX PO ×4 (08:14→21:06)
[2020-04-14] MEDS: hydroCHLOROthiazide 25 MG Tablet PO (08:14)
[2020-04-14] MEDS: oxyCODONE 5 MG Tablet 10 MG PO (10:18)
[2020-04-14 11:42] VITALS: PULSE 72; RESP 20; O2SAT 100
[2020-04-14] MEDS: traMADol 50 MG Tablet PO (13:59)
[2020-04-14 14:18] VITALS: BP 140/66; PULSE 72; RESP 20; TEMP 36.8; O2SAT 100
[2020-04-14] MEDS: Acetaminophen 500 MG Tablet 1000 MG PO (15:09)
[2020-04-14] MEDS: Atorvastatin Calcium 10 MG Tablet PO (21:07)
[2020-04-15] MEDS: Baclofen 10 MG Tablet PO ×2 (00:40→16:51)
[2020-04-15] MEDS: oxyCODONE 5 MG Tablet 10 MG PO ×4 (00:42→16:51)
[2020-04-15] MEDS: Acetaminophen 500 MG Tablet 1000 MG PO (03:29)
[2020-04-15] MEDS: traMADol 50 MG Tablet PO (03:30)
[2020-04-15 04:42] VITALS: BP 139/58; PULSE 69; RESP 18; TEMP 35.9; O2SAT 95
[2020-04-15] MEDS: Meloxicam 15 MG Tablet PO (04:44)
[2020-04-15] MEDS: Enoxaparin 40 MG/0.4 ML Syringe SC (04:44)
[2020-04-15] MEDS: Isosorbide Mononitrate 60 MG Tablet PO (04:44)
[2020-04-15] MEDS: Polyethylene Glycol 3350 17 GM PACKET PO (04:44)
[2020-04-15] MEDS: Lisinopril 40 MG Tablet PO (04:44)
[2020-04-15] MEDS: Senna/Docusate Sodium 1 Tablet PO ×2 (04:44→16:52)
[2020-04-15] MEDS: Atenolol 25 MG Tablet PO ×2 (04:44→16:53)
[2020-04-15] MEDS: amLODIPine 10 MG Tablet PO (04:44)
--- NOTE | 2020-04-15 04:45 | NURSING ---
Pt tearful earlier this am, c/o increased pain behind lt knee, no warmth or redness noted, slight edema noted, unable to perform Mir's d/t fx ankle, polar care applied to behind knee and elevated on pillows, has been having to take pain meds throughout the night. Pt state that ice has been helping a little. Note left for Dr. Cuba to address at morning rounds.Will continue to monitor.
[2020-04-15] MEDS: Menthol/Lanolin/Calamine/Znox 113 GM Tube 1 APPLIC TOPICAL ×2 (05:22→16:55)
[2020-04-15] MEDS: Nystatin Powder 15gm Bottle 1 APPLIC TOPICAL ×2 (05:22→21:06)
--- NOTE | 2020-04-15 08:02 | VDLE_ITS ---
Reason For Study: Swelling Procedure LEFT This is a venous duplex using B-mode, color GSV is normal. flow and spectral Doppler. CFV is compressible, spontaneous, phasic, Exam performed portable in patient room. competent, and demonstrates normal A preliminary report was called and/or faxed augmentation. to TCU RN. FV is compressible, spontaneous, phasic, competent and demonstrates normal augmentation. POP V is compressible, spontaneous, phasic, competent and demonstrates normal augmentation. T/P Trunk is compressible. PTV is compressible. LT PerV is compressible. Acute deep vein thrombosis is noted in the left soleus vein. Nonvascularized structure noted in the left popliteal fossa measuring approximently 0.65 x 1.89 x 1.42 cm. Interpretation Summary Acute deep vein thrombosis is noted in the left soleus vein. The remainder of the left lower extremity deep venous system is patent and compressible. Valvular competence appears intact within the proximal deep venous system on the left . The left great saphenous vein appears patent and compressible segmentally. A non-vascular, heterogeneous structure is noted in the left popliteal space, measuring 0.65 cm x 1.89 cm x 1.42 cm. This may represent a popliteal cyst. Clinical correlation is advised. Ordering Physician: Iglesia Cuba Referring Physician: Stephanie Partida Performed By: Elizabeth Schroeder RVT
[2020-04-15] MEDS: MethylPREDNISolone DosePak 4 MG BOX PO ×4 (09:09→21:05)
[2020-04-15] MEDS: Aspirin E.C. 81 MG Tablet PO (09:09)
[2020-04-15] MEDS: hydroCHLOROthiazide 25 MG Tablet PO (09:10)
--- NOTE | 2020-04-15 12:35 | NURSING ---
Addendum entered by Elizabeth Hernandez 04/15/20 14:48: R' INFORMED OF RESULTS, NEW ORDERS. Addendum entered by Sridevi Ribeiro 04/15/20 14:42: new order to DC lovenox and start eliquis 10mg bid x7 days and then 5mg bid x 3months Addendum entered by Sridevi Ribeiro 04/15/20 14:27: pt + soleus clot in LT leg. Dr Cuba notified. Addendum entered by Sridevi Ribeiro 04/15/20 12:36: correction: no warmth or redness, slight edema Original Note: pt c/o increased pain behind LT knee per weight shifter report, dr cuba updated, new order for doppler. no edema or redness noted, slight edema.
[2020-04-15 13:47] VITALS: BP 132/62; PULSE 60; RESP 15; TEMP 37; O2SAT 93
--- NOTE | 2020-04-15 15:03 | CASEMGMT ---
Social Work IDT met with patient and brother via conference call for care plan meeting. Discussed patient's progress in therapy. Pt is min for tx with FWW, ambulating 5ft at [place], min for bed mobility, NWBS to left foot. Pt is min for toilet tx, mod for clothing management, max for pericare, set up for UE ADLS while seated, mod for LE ADLs. Pt is on a regular diet, good intake, and requesting smaller portions. Pt is out of isolation 04/24. Explained Medicare benefit. The goal is for pt to return home living alone and is safe. Pt reports to no one being able to help her at home. Will continue to follow. JALEESA RuizW
[2020-04-15] MEDS: APIXABAN 5 MG TABLET 10 MG PO (16:52)
[2020-04-15] MEDS: Atorvastatin Calcium 10 MG Tablet PO (21:05)
[2020-04-16] MEDS: oxyCODONE 5 MG Tablet 10 MG PO ×3 (03:48→22:30)
[2020-04-16 05:13] VITALS: BP 152/61; PULSE 65; RESP 16; TEMP 36.4; O2SAT 95
[2020-04-16] MEDS: Isosorbide Mononitrate 60 MG Tablet PO (05:15)
[2020-04-16] MEDS: APIXABAN 5 MG TABLET 10 MG PO ×2 (05:15→16:44)
[2020-04-16] MEDS: Atenolol 25 MG Tablet PO ×2 (05:15→16:45)
[2020-04-16] MEDS: Lisinopril 40 MG Tablet PO (05:15)
[2020-04-16] MEDS: Meloxicam 15 MG Tablet PO (05:16)
[2020-04-16] MEDS: amLODIPine 10 MG Tablet PO (05:16)
[2020-04-16] MEDS: Senna/Docusate Sodium 1 Tablet PO ×2 (05:16→16:45)
[2020-04-16] MEDS: Menthol/Lanolin/Calamine/Znox 113 GM Tube 1 APPLIC TOPICAL ×2 (05:18→21:14)
[2020-04-16] MEDS: Nystatin Powder 15gm Bottle 1 APPLIC TOPICAL ×2 (05:18→21:14)
[2020-04-16] MEDS: MethylPREDNISolone DosePak 4 MG BOX PO ×3 (08:36→21:13)
[2020-04-16] MEDS: hydroCHLOROthiazide 25 MG Tablet PO (08:36)
[2020-04-16] MEDS: Aspirin E.C. 81 MG Tablet PO (08:36)
[2020-04-16] MEDS: traMADol 50 MG Tablet PO (10:29)
[2020-04-16 13:32] VITALS: BP 113/55; PULSE 79; RESP 17; TEMP 36.4; O2SAT 94
--- NOTE | 2020-04-16 15:48 | NURSING ---
Resident and family notified of staff members testing positive for COVID
--- NOTE | 2020-04-16 15:59 | NURSING ---
Spoke with Dr [place] office and they said light ROM is ok for therapy to do with resident, so that LT ankle does not get stiff. Resident is very hesitant about leaving hospital to go to appointment on 04/21. They state they its very hard to do appointment over the phone and they would like to resident to come to office so they can do xrays and sutures removal. This RN will pass information on to resident.
[2020-04-16] MEDS: Atorvastatin Calcium 10 MG Tablet PO (21:12)
[2020-04-17] MEDS: traMADol 50 MG Tablet PO ×2 (02:03→12:04)
[2020-04-17] MEDS: oxyCODONE 5 MG Tablet 10 MG PO ×3 (02:47→22:15)
[2020-04-17] MEDS: Acetaminophen 500 MG Tablet 1000 MG PO ×2 (02:48→14:44)
[2020-04-17 05:39] VITALS: BP 155/62; PULSE 60; RESP 18; TEMP 35.5; O2SAT 95
[2020-04-17] MEDS: Lisinopril 40 MG Tablet PO (05:40)
[2020-04-17] MEDS: Senna/Docusate Sodium 1 Tablet PO ×2 (05:40→17:35)
[2020-04-17] MEDS: Isosorbide Mononitrate 60 MG Tablet PO (05:40)
[2020-04-17] MEDS: Atenolol 25 MG Tablet PO ×2 (05:40→17:35)
[2020-04-17] MEDS: amLODIPine 10 MG Tablet PO (05:40)
[2020-04-17] MEDS: Meloxicam 15 MG Tablet PO (05:40)
[2020-04-17] MEDS: APIXABAN 5 MG TABLET 10 MG PO ×2 (05:41→17:35)
[2020-04-17] MEDS: Menthol/Lanolin/Calamine/Znox 113 GM Tube 1 APPLIC TOPICAL ×2 (05:42→17:37)
[2020-04-17] MEDS: Nystatin Powder 15gm Bottle 1 APPLIC TOPICAL ×2 (05:42→21:10)
[2020-04-17] MEDS: Aspirin E.C. 81 MG Tablet PO (08:28)
[2020-04-17] MEDS: hydroCHLOROthiazide 25 MG Tablet PO (08:28)
[2020-04-17] MEDS: MethylPREDNISolone DosePak 4 MG BOX PO ×2 (08:28→20:35)
--- NOTE | 2020-04-17 10:59 | PCA ---
went into pt's room to assist her back into bed, pt was crying i asked pt what was wrong? pt stated that she was very upset about her dog going to [place] today with a friend. reassured pt that it would be ok, and that for her recovery at home is probably in the best for the both of them at this moment pt knodded her head and began crying even more, laid pt down in bed to rest, pt stated that this is not a good day and that she knows its for the best but she just feels like she is going to here, i told pt she will be just fine and back home before she knows it.
--- NOTE | 2020-04-17 11:52 | CASEMGMT ---
Social Work Met with pt d/t to reports of sadness/tearfulness. Pt explained her friend is coming to take her dog back to their house in [place] to watch him until she gets better, returns home, and can take care of him again. Provided emotional support. Offered positives from that situation. Explained pt is making progress each day and IDT is optimistic she will recover and be able to take care of her dog again. But there is not indications she will here. Pt expressed understanding, and stated she has just been overwhelmed. Provided ongoing emotional and verbal support. Pt appreciative and doing better at the end of conversation. Blanca Martinez, CONTRACTS ANALYST REEL ASSEMBLER
[2020-04-17 14:48] VITALS: BP 136/68; PULSE 73; RESP 16; TEMP 36.9; O2SAT 95
[2020-04-17] MEDS: Atorvastatin Calcium 10 MG Tablet PO (20:35)
[2020-04-18 02:07] VITALS: BP 154/61; PULSE 73; RESP 16; TEMP 36.6; O2SAT 93
[2020-04-18] MEDS: oxyCODONE 5 MG Tablet 10 MG PO ×3 (03:13→14:00)
[2020-04-18] MEDS: APIXABAN 5 MG TABLET 10 MG PO ×2 (06:10→16:29)
[2020-04-18] MEDS: Atenolol 25 MG Tablet PO ×2 (06:11→16:29)
[2020-04-18] MEDS: Lisinopril 40 MG Tablet PO (06:11)
[2020-04-18] MEDS: Meloxicam 15 MG Tablet PO (06:11)
[2020-04-18] MEDS: amLODIPine 10 MG Tablet PO (06:11)
[2020-04-18] MEDS: Senna/Docusate Sodium 1 Tablet PO ×2 (06:11→16:29)
[2020-04-18] MEDS: Isosorbide Mononitrate 60 MG Tablet PO (06:11)
[2020-04-18] MEDS: Menthol/Lanolin/Calamine/Znox 113 GM Tube 1 APPLIC TOPICAL ×2 (06:15→16:30)
[2020-04-18] MEDS: Nystatin Powder 15gm Bottle 1 APPLIC TOPICAL ×2 (06:15→22:00)
[2020-04-18] MEDS: hydroCHLOROthiazide 25 MG Tablet PO (08:12)
[2020-04-18] MEDS: Aspirin E.C. 81 MG Tablet PO (08:12)
[2020-04-18] MEDS: MethylPREDNISolone DosePak 4 MG BOX PO (08:12)
[2020-04-18 08:15] LABS: Absolute Lymphocyte Count 2.33 X10^3/uL (0.83-4.51); Absolute Neutrophil Count 11.6 X10^3/uL (2.0-7.7); Basophil# 0.09 X10^3/uL; Basophil% 0.6 % (0-1); Eosinophils% 1.3 % (0-5); Hematocrit 39.2 % (37-47); Hemoglobin 12.9 g/dL (12.0-15.0); Lymphocyte # 2.33 X10^3/ul (4.0); Lymphocyte % 15.1 % (19-41); Mean Corp Hgb Conc 32.9 g/dL (32-36); Mean Corpuscular Hgb 30.8 pg (27.0-32.0); Mean Corpuscular Volume 93.6 fL (81-99); Mean Platelet Vol. 9.8 fl (6.2-12.0); Monocyte# 0.93 X10^3/uL; NRBC Flagged by Analyzer 0 % (0-5); Neutrophil # 11.64 X10^3/uL (2.7-7.7); Neutrophil % 75.8 % (47-70); Platelet Count 432 K/mm3 (150-450); RBC Distribution Width CV 12.6 % (11.6-14.6); RBC Distribution Width SD 42.9 fl (35.1-43.9); Red Blood Count 4.19 M/mm3 (4.2-5.4); White Blood Count 15.4 K/mm3 (4.4-11.0)
[2020-04-18 08:33] LABS: Anion Gap 8 (5-15); BUN 43 mg/dL (7-18); BUN/Creat Ratio 32.3 RATIO (10-20); Calcium,Total 9.4 mg/dL (8.5-10.1); Chloride 105 mmol/L (98-107); Creatinine, Serum 1.33 mg/dL (0.55-1.02); EST Glomerular Filtration Rate 41 mL/min (>60); Est Glom Filt Rate - Afr Amer 49 mL/min (>60); Estimated Creatinine Clearance 27.13 ml/min; Glucose 129 mg/dL (74-106); Potassium 3.9 mmol/L (3.5-5.1); Sodium Level 137 mmol/L (136-145)
[2020-04-18] MEDS: Tuberculin,Purif.prot.deriv. 50 TU/ML Vial 5 ML ID (11:00)
[2020-04-18] MEDS: 0.9% Normal Saline 1,000 ML 60 ML IV (13:15)
[2020-04-18 13:25] VITALS: PULSE 59; RESP 16; O2SAT 95
[2020-04-18] MEDS: Acetaminophen 500 MG Tablet 1000 MG PO (13:59)
[2020-04-18 16:04] VITALS: BP 125/58; PULSE 59; RESP 16; TEMP 36.5; O2SAT 95
[2020-04-18] MEDS: traMADol 50 MG Tablet PO (21:59)
[2020-04-18] MEDS: Atorvastatin Calcium 10 MG Tablet PO (22:00)
[2020-04-19] MEDS: Baclofen 10 MG Tablet PO (01:00)
[2020-04-19] MEDS: oxyCODONE 5 MG Tablet 10 MG PO ×3 (01:00→22:40)
[2020-04-19 04:24] VITALS: BP 146/59; PULSE 63; RESP 16; TEMP 35.8; O2SAT 97
[2020-04-19] MEDS: traMADol 50 MG Tablet PO ×2 (04:30→21:05)
[2020-04-19] MEDS: Atenolol 25 MG Tablet PO ×2 (04:31→16:46)
[2020-04-19] MEDS: Meloxicam 15 MG Tablet PO (04:31)
[2020-04-19] MEDS: Senna/Docusate Sodium 1 Tablet PO ×2 (04:31→16:45)
[2020-04-19] MEDS: Isosorbide Mononitrate 60 MG Tablet PO (04:31)
[2020-04-19] MEDS: Polyethylene Glycol 3350 17 GM PACKET PO (04:31)
[2020-04-19] MEDS: APIXABAN 5 MG TABLET 10 MG PO ×2 (04:32→16:46)
[2020-04-19] MEDS: Lisinopril 40 MG Tablet PO (04:32)
[2020-04-19] MEDS: amLODIPine 10 MG Tablet PO (04:32)
[2020-04-19] MEDS: 0.9% Normal Saline 1,000 ML 60 ML IV ×2 (04:33→22:35)
[2020-04-19] MEDS: Nystatin Powder 15gm Bottle 1 APPLIC TOPICAL ×2 (04:33→21:05)
[2020-04-19] MEDS: Menthol/Lanolin/Calamine/Znox 113 GM Tube 1 APPLIC TOPICAL ×2 (04:35→16:46)
[2020-04-19 05:44] LABS: Absolute Lymphocyte Count 2.89 X10^3/uL (0.83-4.51); Absolute Neutrophil Count 10.7 X10^3/uL (2.0-7.7); Basophil# 0.05 X10^3/uL; Basophil% 0.3 % (0-1); Eosinophil# 0.44 X10^3/uL; Eosinophils% 2.9 % (0-5); Hematocrit 37.4 % (37-47); Hemoglobin 11.9 g/dL (12.0-15.0); Lymphocyte # 2.89 X10^3/ul (4.0); Lymphocyte % 19.3 % (19-41); Mean Corp Hgb Conc 31.8 g/dL (32-36); Mean Corpuscular Volume 94.2 fL (81-99); Mean Platelet Vol. 9.8 fl (6.2-12.0); Monocyte% 5.3 % (0-10); NRBC Flagged by Analyzer 0 % (0-5); Neutrophil # 10.69 X10^3/uL (2.7-7.7); Neutrophil % 71.4 % (47-70); Platelet Count 352 K/mm3 (150-450); RBC Distribution Width CV 12.7 % (11.6-14.6); RBC Distribution Width SD 44.3 fl (35.1-43.9); Red Blood Count 3.97 M/mm3 (4.2-5.4)
[2020-04-19 06:09] LABS: Anion Gap 7 (5-15); BUN 39 mg/dL (7-18); BUN/Creat Ratio 34.8 RATIO (10-20); Calcium,Total 8.9 mg/dL (8.5-10.1); Chloride 105 mmol/L (98-107); Creatinine, Serum 1.12 mg/dL (0.55-1.02); EST Glomerular Filtration Rate 50 mL/min (>60); Est Glom Filt Rate - Afr Amer 60 mL/min (>60); Estimated Creatinine Clearance 32.21 ml/min; Glucose 139 mg/dL (74-106); Potassium 3.8 mmol/L (3.5-5.1); Sodium Level 137 mmol/L (136-145)
[2020-04-19] MEDS: Aspirin E.C. 81 MG Tablet PO (08:17)
[2020-04-19] MEDS: hydroCHLOROthiazide 25 MG Tablet PO (08:17)
[2020-04-19] MEDS: Acetaminophen 500 MG Tablet 1000 MG PO (08:20)
[2020-04-19 13:33] VITALS: BP 112/55; PULSE 70; RESP 15; TEMP 36.5; O2SAT 951
[2020-04-19] MEDS: Atorvastatin Calcium 10 MG Tablet PO (21:04)
[2020-04-20 05:01] VITALS: BP 130/49; PULSE 71; RESP 16; TEMP 36.4; O2SAT 94
[2020-04-20] MEDS: Lisinopril 40 MG Tablet PO (05:02)
[2020-04-20] MEDS: Meloxicam 15 MG Tablet PO (05:02)
[2020-04-20] MEDS: Senna/Docusate Sodium 1 Tablet PO ×2 (05:02→17:37)
[2020-04-20] MEDS: APIXABAN 5 MG TABLET 10 MG PO ×2 (05:02→17:36)
[2020-04-20] MEDS: Isosorbide Mononitrate 60 MG Tablet PO (05:02)
[2020-04-20] MEDS: amLODIPine 10 MG Tablet PO (05:02)
[2020-04-20] MEDS: oxyCODONE 5 MG Tablet 10 MG PO ×3 (05:02→20:57)
[2020-04-20] MEDS: Atenolol 25 MG Tablet PO ×2 (05:02→17:37)
[2020-04-20] MEDS: Polyethylene Glycol 3350 17 GM PACKET PO (05:02)
[2020-04-20] MEDS: Menthol/Lanolin/Calamine/Znox 113 GM Tube 1 APPLIC TOPICAL ×2 (05:12→17:37)
[2020-04-20] MEDS: Nystatin Powder 15gm Bottle 1 APPLIC TOPICAL ×2 (05:14→20:58)
[2020-04-20] MEDS: hydroCHLOROthiazide 25 MG Tablet PO (08:27)
[2020-04-20] MEDS: Aspirin E.C. 81 MG Tablet PO (09:00)
[2020-04-20 14:13] VITALS: BP 144/64; PULSE 70; RESP 16; TEMP 36.1; O2SAT 97
[2020-04-20] MEDS: 0.9% Normal Saline 1,000 ML 60 ML IV (15:30)
[2020-04-20] MEDS: Atorvastatin Calcium 10 MG Tablet PO (20:58)
[2020-04-21] MEDS: oxyCODONE 5 MG Tablet 10 MG PO ×3 (03:23→23:11)
[2020-04-21 03:27] VITALS: BP 147/63; PULSE 71; RESP 16; TEMP 35.8; O2SAT 97
--- NOTE | 2020-04-21 03:46 | NURSING ---
Pt seen by surgeon today, dressing removed by , only has Andreas Wrap on and note given to pt from states may getting wound wet and take shower, pt has FU appt next week on at 1030 to have sutures removed, brother transporting
[2020-04-21 06:17] LABS: Anion Gap 5 (5-15); BUN 26 mg/dL (7-18); BUN/Creat Ratio 30.8 RATIO (10-20); Calcium,Total 8.8 mg/dL (8.5-10.1); Chloride 108 mmol/L (98-107); Creatinine, Serum 0.84 mg/dL (0.55-1.02); EST Glomerular Filtration Rate 69 mL/min (>60); Est Glom Filt Rate - Afr Amer 84 mL/min (>60); Estimated Creatinine Clearance 42.95 ml/min; Glucose 108 mg/dL (74-106); Potassium 4.1 mmol/L (3.5-5.1); Sodium Level 138 mmol/L (136-145)
[2020-04-21] MEDS: Acetaminophen 500 MG Tablet 1000 MG PO ×2 (06:22→16:09)
[2020-04-21] MEDS: Atenolol 25 MG Tablet PO ×2 (06:22→16:30)
[2020-04-21] MEDS: Isosorbide Mononitrate 60 MG Tablet PO (06:22)
[2020-04-21] MEDS: amLODIPine 10 MG Tablet PO (06:22)
[2020-04-21] MEDS: APIXABAN 5 MG TABLET 10 MG PO ×2 (06:22→16:30)
[2020-04-21] MEDS: Meloxicam 15 MG Tablet PO (06:22)
[2020-04-21] MEDS: Senna/Docusate Sodium 1 Tablet PO (06:22)
[2020-04-21] MEDS: Menthol/Lanolin/Calamine/Znox 113 GM Tube 1 APPLIC TOPICAL ×2 (06:24→16:31)
[2020-04-21] MEDS: Lisinopril 40 MG Tablet PO (06:25)
[2020-04-21] MEDS: Nystatin Powder 15gm Bottle 1 APPLIC TOPICAL ×2 (06:25→20:18)
[2020-04-21] MEDS: hydroCHLOROthiazide 25 MG Tablet PO (08:28)
[2020-04-21] MEDS: Aspirin E.C. 81 MG Tablet PO (08:28)
--- NOTE | 2020-04-21 10:06 | NURSING ---
Pt left with Brother to appt. @ Dr Redding office.
--- NOTE | 2020-04-21 13:22 | NURSING ---
Patient back from appointment. Helped back to room with 2 staff members.
[2020-04-21 13:49] VITALS: BP 104/50; PULSE 78; RESP 16; TEMP 36.8; O2SAT 92
[2020-04-21] MEDS: Atorvastatin Calcium 10 MG Tablet PO (20:18)
[2020-04-22 05:53] VITALS: BP 151/71; PULSE 71; RESP 18; TEMP 36.1; O2SAT 95
[2020-04-22] MEDS: Lisinopril 40 MG Tablet PO (05:55)
[2020-04-22] MEDS: APIXABAN 5 MG TABLET 10 MG PO ×2 (05:55→18:19)
[2020-04-22] MEDS: oxyCODONE 5 MG Tablet 10 MG PO ×3 (05:55→22:38)
[2020-04-22] MEDS: Meloxicam 15 MG Tablet PO (05:56)
[2020-04-22] MEDS: Isosorbide Mononitrate 60 MG Tablet PO (05:56)
[2020-04-22] MEDS: Senna/Docusate Sodium 1 Tablet PO ×2 (05:56→18:19)
[2020-04-22] MEDS: amLODIPine 10 MG Tablet PO (05:56)
[2020-04-22] MEDS: Atenolol 25 MG Tablet PO ×2 (05:56→18:19)
[2020-04-22] MEDS: Menthol/Lanolin/Calamine/Znox 113 GM Tube 1 APPLIC TOPICAL ×2 (05:59→18:18)
[2020-04-22] MEDS: Nystatin Powder 15gm Bottle 1 APPLIC TOPICAL ×2 (05:59→20:22)
[2020-04-22] MEDS: hydroCHLOROthiazide 25 MG Tablet PO (08:35)
[2020-04-22] MEDS: Aspirin E.C. 81 MG Tablet PO (08:35)
[2020-04-22 12:21] VITALS: PULSE 69; RESP 16; O2SAT 94
[2020-04-22] MEDS: Acetaminophen 500 MG Tablet 1000 MG PO (13:49)
[2020-04-22 14:56] VITALS: BP 127/57; PULSE 69; RESP 16; TEMP 36.9; O2SAT 94
[2020-04-22] MEDS: Atorvastatin Calcium 10 MG Tablet PO (20:22)
[2020-04-23 06:15] VITALS: BP 149/63; PULSE 70; RESP 18; TEMP 36.7; O2SAT 95
[2020-04-23] MEDS: Polyethylene Glycol 3350 17 GM PACKET PO (06:20)
[2020-04-23] MEDS: Meloxicam 15 MG Tablet PO (06:21)
[2020-04-23] MEDS: Lisinopril 40 MG Tablet PO (06:21)
[2020-04-23] MEDS: Isosorbide Mononitrate 60 MG Tablet PO (06:21)
[2020-04-23] MEDS: amLODIPine 10 MG Tablet PO (06:21)
[2020-04-23] MEDS: Atenolol 25 MG Tablet PO ×2 (06:21→18:04)
[2020-04-23] MEDS: Senna/Docusate Sodium 1 Tablet PO ×2 (06:21→18:04)
[2020-04-23] MEDS: Nystatin Powder 15gm Bottle 1 APPLIC TOPICAL ×2 (06:22→20:41)
[2020-04-23] MEDS: APIXABAN 5 MG TABLET PO ×2 (06:22→18:04)
[2020-04-23] MEDS: Menthol/Lanolin/Calamine/Znox 113 GM Tube 1 APPLIC TOPICAL ×2 (06:23→18:04)
--- NOTE | 2020-04-23 07:07 | MDS.RN ---
Information for the mds was obtained from review of the clinical record, interview of resident, staff, and direct observation of resident's care.
[2020-04-23] MEDS: hydroCHLOROthiazide 25 MG Tablet PO (08:44)
[2020-04-23] MEDS: Aspirin E.C. 81 MG Tablet PO (08:44)
[2020-04-23] MEDS: oxyCODONE 5 MG Tablet 10 MG PO ×2 (08:49→20:40)
[2020-04-23 14:46] VITALS: BP 110/55; PULSE 62; RESP 16; TEMP 36.5; O2SAT 93
[2020-04-23] MEDS: Acetaminophen 500 MG Tablet 1000 MG PO (20:40)
[2020-04-23] MEDS: Atorvastatin Calcium 10 MG Tablet PO (20:41)
[2020-04-24 06:43] VITALS: BP 143/56; PULSE 70; RESP 16; TEMP 36.2; O2SAT 96
[2020-04-24] MEDS: Menthol/Lanolin/Calamine/Znox 113 GM Tube 1 APPLIC TOPICAL ×2 (06:45→17:21)
[2020-04-24] MEDS: Nystatin Powder 15gm Bottle 1 APPLIC TOPICAL ×2 (06:45→20:22)
[2020-04-24] MEDS: APIXABAN 5 MG TABLET PO ×2 (06:45→17:22)
[2020-04-24] MEDS: Isosorbide Mononitrate 60 MG Tablet PO (06:45)
[2020-04-24] MEDS: Senna/Docusate Sodium 1 Tablet PO ×2 (06:46→17:22)
[2020-04-24] MEDS: Meloxicam 15 MG Tablet PO (06:46)
[2020-04-24] MEDS: amLODIPine 10 MG Tablet PO (06:46)
[2020-04-24] MEDS: Lisinopril 40 MG Tablet PO (06:46)
[2020-04-24] MEDS: Atenolol 25 MG Tablet PO ×2 (06:46→17:22)
[2020-04-24] MEDS: Aspirin E.C. 81 MG Tablet PO (09:11)
[2020-04-24] MEDS: hydroCHLOROthiazide 25 MG Tablet PO (09:11)
[2020-04-24] MEDS: oxyCODONE 5 MG Tablet 10 MG PO ×2 (11:18→23:01)
--- NOTE | 2020-04-24 14:36 | CASEMGMT ---
Social Work Completed HCPOA and LW paperwork with pt. Pt named friend, Eloisa Castanon, as HCPOA. Copies placed on chart. Blanca Martinez, SENIOR LEAD SOFTWARE ENGINEER SECONDARY CONNECTOR ARMATURE
[2020-04-24 17:24] VITALS: BP 121/62; PULSE 74; RESP 16; TEMP 36.9; O2SAT 93
[2020-04-24] MEDS: Atorvastatin Calcium 10 MG Tablet PO (20:22)
[2020-04-25 05:41] VITALS: BP 154/71; PULSE 72; RESP 16; TEMP 36.5; O2SAT 95
[2020-04-25] MEDS: Nystatin Powder 15gm Bottle 1 APPLIC TOPICAL ×2 (05:42→20:30)
[2020-04-25] MEDS: amLODIPine 10 MG Tablet PO (05:43)
[2020-04-25] MEDS: Isosorbide Mononitrate 60 MG Tablet PO (05:43)
[2020-04-25] MEDS: Senna/Docusate Sodium 1 Tablet PO ×2 (05:43→17:44)
[2020-04-25] MEDS: Atenolol 25 MG Tablet PO ×2 (05:43→17:44)
[2020-04-25] MEDS: Meloxicam 15 MG Tablet PO (05:43)
[2020-04-25] MEDS: Lisinopril 40 MG Tablet PO (05:43)
[2020-04-25] MEDS: APIXABAN 5 MG TABLET PO ×2 (05:44→17:44)
[2020-04-25] MEDS: Menthol/Lanolin/Calamine/Znox 113 GM Tube 1 APPLIC TOPICAL ×2 (05:45→17:46)
[2020-04-25 08:05] LABS: Absolute Lymphocyte Count 1.91 X10^3/uL (0.83-4.51); Absolute Neutrophil Count 5.5 X10^3/uL (2.0-7.7); Basophil# 0.06 X10^3/uL; Basophil% 0.7 % (0-1); Eosinophil# 0.34 X10^3/uL; Hematocrit 36.2 % (37-47); Hemoglobin 11.9 g/dL (12.0-15.0); Lymphocyte # 1.91 X10^3/ul (4.0); Lymphocyte % 22.6 % (19-41); Mean Corp Hgb Conc 32.9 g/dL (32-36); Mean Corpuscular Hgb 30.8 pg (27.0-32.0); Mean Corpuscular Volume 93.8 fL (81-99); Mean Platelet Vol. 9.9 fl (6.2-12.0); Monocyte# 0.63 X10^3/uL; Monocyte% 7.5 % (0-10); NRBC Flagged by Analyzer 0 % (0-5); Neutrophil # 5.46 X10^3/uL (2.7-7.7); Neutrophil % 64.7 % (47-70); Platelet Count 279 K/mm3 (150-450); RBC Distribution Width CV 12.9 % (11.6-14.6); RBC Distribution Width SD 44.3 fl (35.1-43.9); Red Blood Count 3.86 M/mm3 (4.2-5.4); White Blood Count 8.4 K/mm3 (4.4-11.0)
[2020-04-25 08:30] LABS: Anion Gap 5 (5-15); BUN 22 mg/dL (7-18); BUN/Creat Ratio 22.3 RATIO (10-20); Calcium,Total 8.8 mg/dL (8.5-10.1); Chloride 108 mmol/L (98-107); Creatinine, Serum 0.98 mg/dL (0.55-1.02); EST Glomerular Filtration Rate 58 mL/min (>60); Est Glom Filt Rate - Afr Amer 70 mL/min (>60); Estimated Creatinine Clearance 36.82 ml/min; Glucose 104 mg/dL (74-106); Sodium Level 140 mmol/L (136-145)
[2020-04-25] MEDS: Aspirin E.C. 81 MG Tablet PO (08:57)
[2020-04-25] MEDS: hydroCHLOROthiazide 25 MG Tablet PO (08:57)
[2020-04-25] MEDS: traMADol 50 MG Tablet PO (16:02)
[2020-04-25 16:41] VITALS: BP 105/49; PULSE 86; RESP 16; TEMP 36.4; O2SAT 95
[2020-04-25] MEDS: Atorvastatin Calcium 10 MG Tablet PO (20:29)
[2020-04-25] MEDS: oxyCODONE 5 MG Tablet 10 MG PO (23:27)
[2020-04-26] MEDS: oxyCODONE 5 MG Tablet 10 MG PO ×3 (03:32→22:42)
[2020-04-26 03:35] VITALS: BP 147/53; PULSE 74; RESP 16; TEMP 36.8; O2SAT 97
[2020-04-26] MEDS: APIXABAN 5 MG TABLET PO ×2 (06:30→16:59)
[2020-04-26] MEDS: Lisinopril 40 MG Tablet PO (06:30)
[2020-04-26] MEDS: Isosorbide Mononitrate 60 MG Tablet PO (06:30)
[2020-04-26] MEDS: Atenolol 25 MG Tablet PO ×2 (06:30→17:00)
[2020-04-26] MEDS: amLODIPine 10 MG Tablet PO (06:30)
[2020-04-26] MEDS: Meloxicam 15 MG Tablet PO (06:30)
[2020-04-26] MEDS: Nystatin Powder 15gm Bottle 1 APPLIC TOPICAL ×2 (06:32→20:56)
[2020-04-26] MEDS: Menthol/Lanolin/Calamine/Znox 113 GM Tube 1 APPLIC TOPICAL (06:33)
[2020-04-26] MEDS: hydroCHLOROthiazide 25 MG Tablet PO (08:18)
[2020-04-26] MEDS: Aspirin E.C. 81 MG Tablet PO (08:18)
[2020-04-26] MEDS: traMADol 50 MG Tablet PO (11:28)
[2020-04-26 15:16] VITALS: BP 114/53; PULSE 73; RESP 16; TEMP 36.6; O2SAT 97
[2020-04-26] MEDS: Senna/Docusate Sodium 1 Tablet PO (16:59)
[2020-04-26] MEDS: Atorvastatin Calcium 10 MG Tablet PO (20:56)
[2020-04-27 05:36] VITALS: BP 139/60; PULSE 70; RESP 16; TEMP 36.1; O2SAT 97
[2020-04-27] MEDS: Meloxicam 15 MG Tablet PO (05:38)
[2020-04-27] MEDS: amLODIPine 10 MG Tablet PO (05:38)
[2020-04-27] MEDS: Isosorbide Mononitrate 60 MG Tablet PO (05:38)
[2020-04-27] MEDS: Lisinopril 40 MG Tablet PO (05:38)
[2020-04-27] MEDS: APIXABAN 5 MG TABLET PO ×2 (05:39→16:56)
[2020-04-27] MEDS: Nystatin Powder 15gm Bottle 1 APPLIC TOPICAL ×2 (05:40→20:52)
[2020-04-27] MEDS: Menthol/Lanolin/Calamine/Znox 113 GM Tube 1 APPLIC TOPICAL (05:40)
[2020-04-27] MEDS: Atenolol 25 MG Tablet PO ×2 (05:41→16:56)
[2020-04-27] MEDS: Aspirin E.C. 81 MG Tablet PO (08:17)
[2020-04-27] MEDS: hydroCHLOROthiazide 25 MG Tablet PO (08:17)
[2020-04-27 15:10] VITALS: BP 126/60; PULSE 75; RESP 18; TEMP 36.4; O2SAT 97
[2020-04-27] MEDS: oxyCODONE 5 MG Tablet 10 MG PO ×2 (16:55→23:27)
[2020-04-27] MEDS: Senna/Docusate Sodium 1 Tablet PO (16:56)
[2020-04-27] MEDS: Atorvastatin Calcium 10 MG Tablet PO (20:51)
[2020-04-28 06:31] VITALS: BP 142/55; PULSE 97; RESP 16; TEMP 36.4; O2SAT 97
[2020-04-28] MEDS: APIXABAN 5 MG TABLET PO ×2 (06:32→17:54)
[2020-04-28] MEDS: Senna/Docusate Sodium 1 Tablet PO ×2 (06:32→17:54)
[2020-04-28] MEDS: Lisinopril 40 MG Tablet PO (06:32)
[2020-04-28] MEDS: amLODIPine 10 MG Tablet PO (06:32)
[2020-04-28] MEDS: Isosorbide Mononitrate 60 MG Tablet PO (06:32)
[2020-04-28] MEDS: Atenolol 25 MG Tablet PO ×2 (06:32→17:54)
[2020-04-28] MEDS: Meloxicam 15 MG Tablet PO (06:32)
[2020-04-28] MEDS: Aspirin E.C. 81 MG Tablet PO (06:32)
[2020-04-28] MEDS: hydroCHLOROthiazide 25 MG Tablet PO (06:33)
[2020-04-28] MEDS: Nystatin Powder 15gm Bottle 1 APPLIC TOPICAL ×2 (06:35→20:00)
[2020-04-28] MEDS: Menthol/Lanolin/Calamine/Znox 113 GM Tube 1 APPLIC TOPICAL ×2 (06:35→17:53)
[2020-04-28] MEDS: oxyCODONE 5 MG Tablet 10 MG PO ×2 (09:09→23:37)
--- NOTE | 2020-04-28 09:30 | NURSING ---
pt returned from mainframe systems administrator appt today with no paperwork from the Dr. pt states The removed something from my neck. pt has bandage to left side of neck.
--- NOTE | 2020-04-28 13:42 | CASEMGMT ---
Social Work Spoke with pt about DC plans. Pt stated her friend is coming into town 05/03 to assist pt at home and requesting DC 05/03. IDT agreeable. Pt agreeable to [facility] - referral made PT/OT. Pt requesting FWW and w/c. Referral made to [facility]. Friend to transport. Plan: DC home alone 05/03 with [facility] PT/OT, [employer] - FWW, w/c Blanca Martinez, JALEESA PEREZW
--- NOTE | 2020-04-28 13:55 | NURSING ---
pt returned from Dr. john with Dr. Redding. No paperwork was provided and pt states they removed the darrius. When questioned about her weight bearing status, the pt stated that has not changed and she is to f/u in 3 weeks.
[2020-04-28 14:18] VITALS: BP 94/40; PULSE 71; RESP 18; TEMP 36.2; O2SAT 97
--- NOTE | 2020-04-28 19:28 | PCM.DC ---
- Discharge Diagnoses Current Active Problems: Current Active and Chronic Problems Debility (Acute) Open left ankle fracture (Acute) Dislocation of left ankle joint (Acute) Coronary artery disease (Chronic) Muscle spasm (Chronic) Osteoarthritis (Chronic) Hypertension (Chronic) Hyperlipidemia (Chronic) You will use the following diet at home:: No restrictions, Regular Your food should be the consistency of: Regular, Puree Discharge Activity: Use Walker Weight Bearing Status: No weight bearing Keep extremity elevated above heart level: Left Leg Call your doctor if you observe: Fever of 101 or Higher, Inability to urinate, Inability to have a bowel movement, Shortness of breath, Swelling in the ankles, Chest pain, Uncontrolled pain Allergies/Adverse Reactions: Allergies No Known Allergies Allergy (Verified 08/04/17 17:23) Medications to take at Discharge Atenolol [Tenormin] 25 mg PO BID 07/09/16 Isosorbide Mononitrate [Isosorbide Mononitrate ER] 60 mg PO DAILY 07/09/16 Amlodipine [Norvasc] 10 mg PO DAILY 12/10/16 Benazepril HCl 40 mg PO DAILY 12/10/16 Hydrochlorothiazide [Hctz] 25 mg PO DAILY 12/10/16 Simvastatin 20 mg PO QHS 12/10/16 Baclofen 5 - 10 mg PO BID 08/04/17 Aspirin [Aspirin EC] 81 mg PO DAILY 04/10/20 Meloxicam 15 mg PO DAILY 04/10/20 Nystatin [Mycostatin] 1 applic TOPICAL BID 04/10/20 Acetaminophen [Tylenol] 1,000 mg PO Q6H PRN tablet 04/28/20 Apixaban [Eliquis] 5 mg PO BID #60 tab 04/28/20 Menthol/Lanolin/Calamine/Znox [Calmoseptine Ointment] 1 applic TOPICAL BID tube 04/28/20 Nystatin Powder [Mycostatin Powder] 1 applic TOPICAL 0600,2200 bottle 04/28/20 Oxycodone [Oxyir] 10 mg PO Q4H PRN PRN 3 Days #36 tablet 04/28/20 Polyethylene Glycol 3350 [Miralax] 17 gm PO DAILY #30 packet 04/28/20 Senna/Docusate Sodium [Senokot-S] 1 tab PO BID #60 tab 04/28/20 The following prescriptions were given: Apixaban [Eliquis] 5 mg PO BID #60 tab Transmission Status: Pending to [facility] Polyethylene Glycol 3350 [Miralax] 17 gm PO DAILY #30 packet Transmission Status: Pending to [facility] Oxycodone [Oxyir] 10 mg PO Q4H PRN PRN 3 Days #36 tablet PRN Reason: Pain Score 6-10 Transmission Status: Received by [facility] Senna/Docusate Sodium [Senokot-S] 1 tab PO BID #60 tab Transmission Status: Pending to [facility] Primary Care Physician: Stephanie Partida DO [Primary Care Provider] - Please follow up with your Primary Care Physician in: 1 week. Test Results: Test results from this visit will be discussed in further detail at your follow-up appointment, if applicable. Please Follow Up With: Dr Redding (surgeon) When: [phone] Proposed Discharge Date: 05/03/20
--- NOTE | 2020-04-28 19:30 | DS.PCM_ITS ---
Discharge Date and Diagnosis - Problem List Patient Problems: Active and Suspected Problems Debility (Acute) Open left ankle fracture (Acute) Dislocation of left ankle joint (Acute) Date of Admission: 04/10/20 Date of Discharge: 05/03/20 - Primary Discharge Diagnosis Acute Problems: Active Problems Debility (Acute) Open left ankle fracture (Acute) Dislocation of left ankle joint (Acute) - Secondary Discharge Diagnosis Chronic Problems: Chronic Problems Chronic back pain (Chronic) Coronary artery disease (Chronic) Muscle spasm (Chronic) Osteoarthritis (Chronic) CAD (coronary artery disease) (Chronic) Hypertension (Chronic) Hyperlipidemia (Chronic) Hospital Course and Treatment Imaging Results: 04/10/20 23:43 Diet: Regular - General Food consistency:: Regular Liquid Consistency:: Regular/Thin Is pt able to select menu?: Yes Diet Comments: small portions please Clinical Impression(s) from Imaging Studies Knee X-Ray 04/13/20 15:25 IMPRESSION: 1. 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 2. Calcifications of the menisci. Question CPPD. Electronically Signed: Sean Peoples DO at 17:02 EST Tel [phone], Service support , Operations: None Procedures: None Summary of Care Provided: The patient is a 79 year old Female with below past medical history hospitalized for left ankle open fracture/dislocation, underwent ORIF/I&D 04/07/20 per Orthopedics, admitted to TCU with debility, here for rehabilitation, strengthening, prior to discharge home alone. 04/10/20 Doppler ultrasound POSITIVE DVT left lower extremity, treated with Eliquis, will discharge home on Eliquis. Discharge home alone, [facility] PT/OT, [place] Front Wheeled Walker, Wheelchair. Patient Problems: Active and Suspected Problems Debility (Acute) Open left ankle fracture (Acute) Dislocation of left ankle joint (Acute) - Physical Exam Vitals/I&O's: Vital Signs Temp Pulse Resp BP Pulse Ox 97.2 F L 71 18 94/40 L 97 04/28/20 14:18 04/28/20 14:18 04/28/20 14:18 04/28/20 14:18 04/28/20 14:18 Oxygen Delivery Method Room Air Weight: 85.814 kg Body Mass Index (BMI) 34.6 Intake and Output for Last 24 Hours 04/26/20 04/27/20 04/28/20 23:59 23:59 23:59 Intake Total 600 / 600 720 / 720 240 / 240 Balance 600 / 600 720 / 720 240 / 240 Current Medications Acetaminophen (Acetaminophen 500 Mg Tablet) 1,000 mg PO Q6H PRN PRN Reason: Pain Score 1-3 Last Admin: 04/23/20 20:40 Dose: 1,000 mg Documented by: Amlodipine Besylate (Amlodipine 10 Mg Tablet) 10 mg PO DAILY [facility] Last Admin: 04/28/20 06:32 Dose: 10 mg Documented by: Apixaban (Apixaban 5 Mg Tablet) 5 mg PO BID [facility] Stop: 07/22/20 06:01 Last Admin: 04/28/20 17:54 Dose: 5 mg Documented by: Aspirin (Aspirin E.C. 81 Mg Tablet) 81 mg PO DAILY@0800 [facility] Last Admin: 04/28/20 06:32 Dose: 81 mg Documented by: Atenolol (Atenolol 25 Mg Tablet) 25 mg PO BID [facility] Last Admin: 04/28/20 17:54 Dose: 25 mg Documented by: Atorvastatin Calcium (Atorvastatin Calcium 10 Mg Tablet) 10 mg PO QHS [facility] Last Admin: 04/27/20 20:51 Dose: 10 mg Documented by: Baclofen (Baclofen 10 Mg Tablet) 10 mg PO BID PRN PRN PRN Reason: muscle spasm Last Admin: 04/19/20 01:00 Dose: 10 mg Documented by: Bisacodyl (Bisacodyl 10 Mg Suppository) 10 mg RECTAL DAILY PRN PRN Reason: Constipation Calamine/Phenol (Menthol/Lanolin/Calamine/Znox 113 Gm Tube) 1 applic TOPICAL BID [facility]; Protocol Last Admin: 04/28/20 17:53 Dose: 1 applicatio Documented by: Hydrochlorothiazide (Hydrochlorothiazide 25 Mg Tablet) 25 mg PO DAILY@0800 [facility] Last Admin: 04/28/20 06:33 Dose: 25 mg Documented by: Hydrocortisone (Hydrocortisone 2.5% Crm) 1 applic TOPICAL BID PRN PRN; Protocol PRN Reason: RASH/TOPICAL IRRITATION Isosorbide Mononitrate (Isosorbide Mononitrate 60 Mg Tablet) 60 mg PO DAILY [facility] Last Admin: 04/28/20 06:32 Dose: 60 mg Documented by: Lisinopril (Lisinopril 40 Mg Tablet) 40 mg PO DAILY [facility] Last Admin: 04/28/20 06:32 Dose: 40 mg Documented by: Magnesium Hydroxide (Magnesium Hydroxide 30 Ml Udc) 30 ml PO DAILY PRN PRN Reason: Constipation Meloxicam (Meloxicam 15 Mg Tablet) 15 mg PO DAILY [facility] Last Admin: 04/28/20 06:32 Dose: 15 mg Documented by: Nystatin (Nystatin Powder 15gm Bottle) 1 applic TOPICAL 0600,2200 [facility]; Protocol Last Admin: 04/28/20 06:35 Dose: 1 applicatio Documented by: Nystatin (Nystatin Ointment) 1 applic TOPICAL DAILY PRN PRN; Protocol PRN Reason: redness, itching Oxycodone HCl (Oxycodone 5 Mg Tablet) 10 mg PO Q4H PRN PRN PRN Reason: Pain Score 6-10 Last Admin: 04/28/20 09:09 Dose: 10 mg Documented by: Polyethylene Glycol (Polyethylene Glycol 3350 17 Gm Packet) 17 gm PO DAILY [facility] Last Admin: 04/28/20 06:32 Dose: Not Given Documented by: Senna/Docusate Sodium (Senna/Docusate Sodium 1 Tablet) 1 tablet PO BID [facility] Last Admin: 04/28/20 17:54 Dose: 1 tablet Documented by: Tramadol HCl (Tramadol 50 Mg Tablet) 50 mg PO Q6H PRN PRN PRN Reason: Pain Score 4-5 Last Admin: 04/26/20 11:28 Dose: 50 mg Documented by: Discharge Diet: No Restrictions Discharge Activity: Use Walker Weight Bearing Status: No weight bearing Keep extremity elevated above heart level: Left Leg Call your doctor if you observe: Fever of 101 or Higher, Inability to urinate, Inability to have a bowel movement, Shortness of breath, Swelling in the ankles, Chest pain, Uncontrolled pain Home Medications: Medications to take at Discharge Atenolol [Tenormin] 25 mg PO BID 07/09/16 Isosorbide Mononitrate [Isosorbide Mononitrate ER] 60 mg PO DAILY 07/09/16 Amlodipine [Norvasc] 10 mg PO DAILY 12/10/16 Benazepril HCl 40 mg PO DAILY 12/10/16 Hydrochlorothiazide [Hctz] 25 mg PO DAILY 12/10/16 Simvastatin 20 mg PO QHS 12/10/16 Baclofen 5 - 10 mg PO BID 08/04/17 Aspirin [Aspirin EC] 81 mg PO DAILY 04/10/20 Meloxicam 15 mg PO DAILY 04/10/20 Nystatin [Mycostatin] 1 applic TOPICAL BID 04/10/20 Acetaminophen [Tylenol] 1,000 mg PO Q6H PRN tablet 04/28/20 Apixaban [Eliquis] 5 mg PO BID #60 tab 04/28/20 Menthol/Lanolin/Calamine/Znox [Calmoseptine Ointment] 1 applic TOPICAL BID tube 04/28/20 Nystatin Powder [Mycostatin Powder] 1 applic TOPICAL 0600,2200 bottle 04/28/20 Oxycodone [Oxyir] 10 mg PO Q4H PRN PRN 3 Days #36 tablet 04/28/20 Polyethylene Glycol 3350 [Miralax] 17 gm PO DAILY #30 packet 04/28/20 Senna/Docusate Sodium [Senokot-S] 1 tab PO BID #60 tab 04/28/20 Following Prescriptions Were Given to Patient: Apixaban [Eliquis] 5 mg PO BID #60 tab Transmission Status: Pending to [address] Polyethylene Glycol 3350 [Miralax] 17 gm PO DAILY #30 packet Transmission Status: Pending to [address] Oxycodone [Oxyir] 10 mg PO Q4H PRN PRN 3 Days #36 tablet PRN Reason: Pain Score 6-10 Transmission Status: Received by [address] Senna/Docusate Sodium [Senokot-S] 1 tab PO BID #60 tab Transmission Status: Pending to [address] Primary Care Physician: Stephanie Partida DO [Primary Care Provider] - Please follow up with your Primary Care Physician in: 1 week. Please Follow Up With: Dr Redding (surgeon) When: [phone] Disposition: Home with Home Health Minutes spent on discharge:: 35 Patient Condition:: Stable Medical Necessity - Tobacco Use Smoking Status: Former smoker Tobacco Use: Non-smoker Meaningful Use Info Meaningful Use Diagnoses (Choose all that apply): None applicable
[2020-04-28] MEDS: Atorvastatin Calcium 10 MG Tablet PO (20:00)
[2020-04-29 05:47] VITALS: BP 146/61; PULSE 83; RESP 16; TEMP 36.6; O2SAT 96
[2020-04-29] MEDS: Polyethylene Glycol 3350 17 GM PACKET PO (05:51)
[2020-04-29] MEDS: APIXABAN 5 MG TABLET PO ×2 (05:53→16:23)
[2020-04-29] MEDS: Senna/Docusate Sodium 1 Tablet PO ×2 (05:53→16:24)
[2020-04-29] MEDS: amLODIPine 10 MG Tablet PO (05:53)
[2020-04-29] MEDS: Lisinopril 40 MG Tablet PO (05:53)
[2020-04-29] MEDS: Atenolol 25 MG Tablet PO ×2 (05:53→16:24)
[2020-04-29] MEDS: Isosorbide Mononitrate 60 MG Tablet PO (05:54)
[2020-04-29] MEDS: Meloxicam 15 MG Tablet PO (05:54)
[2020-04-29] MEDS: Nystatin Powder 15gm Bottle 1 APPLIC TOPICAL ×2 (05:55→22:17)
[2020-04-29] MEDS: Menthol/Lanolin/Calamine/Znox 113 GM Tube 1 APPLIC TOPICAL ×2 (05:55→16:24)
[2020-04-29] MEDS: Aspirin E.C. 81 MG Tablet PO (07:53)
[2020-04-29] MEDS: hydroCHLOROthiazide 25 MG Tablet PO (07:53)
[2020-04-29 14:32] VITALS: BP 108/61; PULSE 81; RESP 15; TEMP 37; O2SAT 93
[2020-04-29] MEDS: oxyCODONE 5 MG Tablet 10 MG PO (14:37)
[2020-04-29] MEDS: Atorvastatin Calcium 10 MG Tablet PO (22:17)
[2020-04-30] MEDS: oxyCODONE 5 MG Tablet 10 MG PO ×2 (00:05→16:05)
[2020-04-30 06:19] VITALS: BP 147/53; PULSE 72; RESP 16; TEMP 36.8; O2SAT 94
[2020-04-30] MEDS: Lisinopril 40 MG Tablet PO (06:21)
[2020-04-30] MEDS: amLODIPine 10 MG Tablet PO (06:21)
[2020-04-30] MEDS: Isosorbide Mononitrate 60 MG Tablet PO (06:21)
[2020-04-30] MEDS: Meloxicam 15 MG Tablet PO (06:21)
[2020-04-30] MEDS: Senna/Docusate Sodium 1 Tablet PO ×2 (06:21→17:39)
[2020-04-30] MEDS: Atenolol 25 MG Tablet PO ×2 (06:21→17:39)
[2020-04-30] MEDS: APIXABAN 5 MG TABLET PO ×2 (06:21→17:39)
[2020-04-30] MEDS: Menthol/Lanolin/Calamine/Znox 113 GM Tube 1 APPLIC TOPICAL ×2 (06:22→17:40)
[2020-04-30] MEDS: Nystatin Powder 15gm Bottle 1 APPLIC TOPICAL ×2 (06:23→21:11)
[2020-04-30] MEDS: Aspirin E.C. 81 MG Tablet PO (08:37)
[2020-04-30] MEDS: hydroCHLOROthiazide 25 MG Tablet PO (08:37)
[2020-04-30 13:13] VITALS: BP 122/56; PULSE 67; RESP 16; TEMP 36.7; O2SAT 95
[2020-04-30 13:15] VITALS: PULSE 67; RESP 16; O2SAT 95
[2020-04-30] MEDS: Acetaminophen 500 MG Tablet 1000 MG PO (16:00)
[2020-04-30] MEDS: Atorvastatin Calcium 10 MG Tablet PO (21:12)
[2020-05-01] MEDS: oxyCODONE 5 MG Tablet 10 MG PO ×2 (01:27→14:08)
[2020-05-01 06:26] VITALS: BP 127/61; PULSE 69; RESP 16; TEMP 37.2; O2SAT 94
[2020-05-01] MEDS: Polyethylene Glycol 3350 17 GM PACKET PO (06:27)
[2020-05-01] MEDS: Lisinopril 40 MG Tablet PO (06:27)
[2020-05-01] MEDS: amLODIPine 10 MG Tablet PO (06:27)
[2020-05-01] MEDS: Meloxicam 15 MG Tablet PO (06:27)
[2020-05-01] MEDS: Senna/Docusate Sodium 1 Tablet PO ×2 (06:28→18:14)
[2020-05-01] MEDS: Nystatin Powder 15gm Bottle 1 APPLIC TOPICAL ×2 (06:28→21:53)
[2020-05-01] MEDS: Atenolol 25 MG Tablet PO ×2 (06:28→18:14)
[2020-05-01] MEDS: Isosorbide Mononitrate 60 MG Tablet PO (06:28)
[2020-05-01] MEDS: APIXABAN 5 MG TABLET PO ×2 (06:28→18:14)
[2020-05-01] MEDS: Menthol/Lanolin/Calamine/Znox 113 GM Tube 1 APPLIC TOPICAL ×2 (06:28→18:13)
[2020-05-01] MEDS: Aspirin E.C. 81 MG Tablet PO (08:23)
[2020-05-01] MEDS: hydroCHLOROthiazide 25 MG Tablet PO (08:23)
--- NOTE | 2020-05-01 09:07 | CASEMGMT ---
Social Work BIMS and PHQ-9 completed for MDS assessment. Blanca Martinez, MACHINE I CUTTER HOOKMAN
--- NOTE | 2020-05-01 13:42 | MDS.RN ---
completed pain interview for sharyn 05/03/20
[2020-05-01] MEDS: Acetaminophen 500 MG Tablet 1000 MG PO (14:09)
[2020-05-01 14:55] VITALS: BP 117/60; PULSE 60; RESP 16; TEMP 36.7; O2SAT 94
--- NOTE | 2020-05-01 16:35 | NURSING ---
Resident and brother, Carlos, notified of staff member testing positive for COVID.
[2020-05-01] MEDS: Atorvastatin Calcium 10 MG Tablet PO (21:52)
[2020-05-02] MEDS: oxyCODONE 5 MG Tablet 10 MG PO ×2 (01:19→17:31)
[2020-05-02 05:00] VITALS: BP 130/55; PULSE 73; RESP 18; TEMP 37; O2SAT 92
[2020-05-02] MEDS: Nystatin Powder 15gm Bottle 1 APPLIC TOPICAL ×2 (06:30→21:03)
[2020-05-02] MEDS: Menthol/Lanolin/Calamine/Znox 113 GM Tube 1 APPLIC TOPICAL ×2 (06:30→17:31)
[2020-05-02] MEDS: Lisinopril 40 MG Tablet PO (06:30)
[2020-05-02] MEDS: amLODIPine 10 MG Tablet PO (06:31)
[2020-05-02] MEDS: Isosorbide Mononitrate 60 MG Tablet PO (06:31)
[2020-05-02] MEDS: Meloxicam 15 MG Tablet PO (06:31)
[2020-05-02] MEDS: Senna/Docusate Sodium 1 Tablet PO ×2 (06:31→17:28)
[2020-05-02] MEDS: APIXABAN 5 MG TABLET PO ×2 (06:31→17:28)
[2020-05-02] MEDS: Atenolol 25 MG Tablet PO ×2 (06:31→17:28)
[2020-05-02 07:00] LABS: Absolute Lymphocyte Count 2.07 X10^3/uL (0.83-4.51); Absolute Neutrophil Count 3.8 X10^3/uL (2.0-7.7); Basophil# 0.05 X10^3/uL; Basophil% 0.7 % (0-1); Eosinophil# 0.54 X10^3/uL; Eosinophils% 7.7 % (0-5); Hemoglobin 12.1 g/dL (12.0-15.0); Lymphocyte # 2.07 X10^3/ul (4.0); Lymphocyte % 29.4 % (19-41); Mean Corp Hgb Conc 31.8 g/dL (32-36); Mean Corpuscular Hgb 30.1 pg (27.0-32.0); Mean Corpuscular Volume 94.5 fL (81-99); Mean Platelet Vol. 9.7 fl (6.2-12.0); Monocyte# 0.59 X10^3/uL; Monocyte% 8.4 % (0-10); NRBC Flagged by Analyzer 0 % (0-5); Neutrophil # 3.78 X10^3/uL (2.7-7.7); Neutrophil % 53.7 % (47-70); Platelet Count 236 K/mm3 (150-450); RBC Distribution Width CV 12.7 % (11.6-14.6); RBC Distribution Width SD 44.2 fl (35.1-43.9); Red Blood Count 4.02 M/mm3 (4.2-5.4)
[2020-05-02 07:22] LABS: Anion Gap 3 (5-15); BUN 29 mg/dL (7-18); BUN/Creat Ratio 25.2 RATIO (10-20); Calcium,Total 8.8 mg/dL (8.5-10.1); Chloride 108 mmol/L (98-107); Creatinine, Serum 1.15 mg/dL (0.55-1.02); EST Glomerular Filtration Rate 48 mL/min (>60); Est Glom Filt Rate - Afr Amer 58 mL/min (>60); Estimated Creatinine Clearance 30.86 ml/min; Glucose 99 mg/dL (74-106); Potassium 4.1 mmol/L (3.5-5.1); Sodium Level 140 mmol/L (136-145)
[2020-05-02] MEDS: Aspirin E.C. 81 MG Tablet PO (08:45)
[2020-05-02] MEDS: hydroCHLOROthiazide 25 MG Tablet PO (08:45)
[2020-05-02 13:50] VITALS: BP 117/50; PULSE 75; RESP 16; TEMP 36.8; O2SAT 93
[2020-05-02] MEDS: Atorvastatin Calcium 10 MG Tablet PO (21:02)
[2020-05-03] MEDS: oxyCODONE 5 MG Tablet 10 MG PO ×2 (00:15→08:34)
[2020-05-03 05:00] VITALS: BP 120/60; PULSE 82; RESP 16; TEMP 36.8; O2SAT 97
[2020-05-03] MEDS: APIXABAN 5 MG TABLET PO (06:55)
[2020-05-03] MEDS: Atenolol 25 MG Tablet PO (06:55)
[2020-05-03] MEDS: Lisinopril 40 MG Tablet PO (06:55)
[2020-05-03] MEDS: Isosorbide Mononitrate 60 MG Tablet PO (06:56)
[2020-05-03] MEDS: Senna/Docusate Sodium 1 Tablet PO (06:56)
[2020-05-03] MEDS: amLODIPine 10 MG Tablet PO (06:56)
[2020-05-03] MEDS: Meloxicam 15 MG Tablet PO (06:56)
[2020-05-03] MEDS: Nystatin Powder 15gm Bottle 1 APPLIC TOPICAL (06:58)
[2020-05-03] MEDS: hydroCHLOROthiazide 25 MG Tablet PO (08:29)
[2020-05-03] MEDS: Aspirin E.C. 81 MG Tablet PO (08:29)
[2020-05-03 09:59] VITALS: PULSE 69; RESP 16; O2SAT 96
[2020-05-03 11:12] VITALS: BP 123/57; PULSE 69; RESP 16; TEMP 36.7; O2SAT 96
== END 2020-05-03 11:15 | disposition home health service (06) | DRG 560 ==
PROVIDERS: Admitting Provider Family Medicine Geriatric Medicine; PCP Family Medicine; Visit Provider Family Medicine Geriatric Medicine
DX: S82.63XD Displaced fracture of lateral malleolus of unspecified fibula, subsequent encounter for closed fracture with routine healing (principal); I82.402 Acute embolism and thrombosis of unspecified deep veins of left lower extremity; W01.0XXD Fall on same level from slipping, tripping and stumbling without subsequent striking against object, subsequent encounter; E78.5 Hyperlipidemia, unspecified; I10 Essential (primary) hypertension; M19.90 Unspecified osteoarthritis, unspecified site; B35.4 Tinea corporis; M62.838 Other muscle spasm; I25.10 Atherosclerotic heart disease of native coronary artery without angina pectoris; G89.29 Other chronic pain; Z87.891 Personal history of nicotine dependence
CPT/HCPCS: 36415; 73562; 80048; 85025; 87426; 87635; 93971; 97110; 97116; 97162; 97166; 97530; 97535; 97802; J7030; U0002

== ENCOUNTER 2020-06-04 15:20 | Outpatient (RCR) | payer MEDICARE, OTHER, SELFPAY | END 2020-06-04 23:59 | LOC: IMMUN 15:20 | PROVIDERS: PCP Family Medicine; Visit Provider Family Medicine | DX: Z23 Encounter for immunization (principal) | CPT/HCPCS: 0011A; 0012A; 91301 ==

== ENCOUNTER → 2020-07-23 09:43 | Outpatient (CLI) | payer MEDICARE, OTHER, SELFPAY ==
[2020-07-23 12:10] LABS: Absolute Lymphocyte Count 1.63 X10^3/uL (0.83-4.51); Basophil% 1.1 % (0-1); Eosinophil# 0.67 X10^3/uL; Eosinophils% 7.4 % (0-5); Hematocrit 43.3 % (37-47); Hemoglobin 13.4 g/dL (12.0-15.0); Lymphocyte # 1.63 X10^3/ul (4.0); Mean Corp Hgb Conc 30.9 g/dL (32-36); Mean Corpuscular Hgb 29.2 pg (27.0-32.0); Mean Corpuscular Volume 94.3 fL (81-99); Mean Platelet Vol. 10.3 fl (6.2-12.0); Monocyte# 0.64 X10^3/uL; Monocyte% 7.1 % (0-10); NRBC Flagged by Analyzer 0 % (0-5); Neutrophil # 5.98 X10^3/uL (2.7-7.7); Platelet Count 272 K/mm3 (150-450); RBC Distribution Width CV 12.8 % (11.6-14.6); RBC Distribution Width SD 44.7 fl (35.1-43.9); Red Blood Count 4.59 M/mm3 (4.2-5.4); White Blood Count 9.1 K/mm3 (4.4-11.0)
[2020-07-23 12:23] LABS: Vitamin D,25 Hydroxy 28.7 ng/mL
[2020-07-23 12:30] LABS: AST(SGOT) 18 U/L (15-37); Alanine Aminotransfer ALT/SGPT 17 U/L (13-56); Albumin, Serum 3.7 g/dL (3.2-5.0); Alkaline Phosphatase 62 U/L (45-117); Anion Gap 4 (5-15); BUN 29 mg/dL (7-18); BUN/Creat Ratio 26.9 RATIO (10-20); Calcium,Total 9.6 mg/dL (8.5-10.1); Chloride 105 mmol/L (98-107); Cholesterol 159 mg/dL (200); Creatinine, Serum 1.08 mg/dL (0.55-1.02); EST Glomerular Filtration Rate 52 mL/min (>60); Est Glom Filt Rate - Afr Amer 63 mL/min (>60); Globulin 3.6 g/dL (2.2-4.2); Glucose 135 mg/dL (74-106); High Density Lipoprotein 52 mg/dL; Potassium 4.4 mmol/L (3.5-5.1); Protein, Total 7.3 g/dL (6.4-8.2); Sodium Level 139 mmol/L (136-145); Triglycerides 108 mg/dL; Very Low Density Lipoprotein 22 mg/dL (5-40)
== END ==
PROVIDERS: PCP Family Medicine; Visit Provider Family Medicine
DX: E55.9 Vitamin D deficiency, unspecified (principal); E78.5 Hyperlipidemia, unspecified; Z51.81 Encounter for therapeutic drug level monitoring
CPT/HCPCS: 36415; 80053; 80061; 82306; 85025

== ENCOUNTER → 2020-08-19 12:17 | Outpatient (CLI) | payer MEDICARE, OTHER, SELFPAY ==
--- NOTE | 2020-08-19 12:21 | BI_ITS ---
MAMMOGRAPHY - BILATERAL SCREENING REASON FOR EXAM: Female, 80 years old. Routine annual screening examination. PERTINENT HISTORY: Grandmother with breast cancer. TECHNIQUE: Digital bilateral breast luciana (3D mammographic acquisition) in the CC and MLO projections. 2-D mediolateral oblique (MLO) and craniocaudad (CC) views of both breasts were obtained. CAD: Full Field Digital Mammography with Computer Added Detection was performed. COMPARISON: None. FINDINGS: Breast Composition: The breasts are heterogeneously dense, which may obscure small masses. There is a cluster of microcalcification in the upper outer aspect of the left breast for which further evaluation by magnification views and ultrasound would be recommended. No other significant abnormalities are identified. BI/SCRN MAMM (CAD)W/LUCIANA BILAT IMPRESSION: Further imaging evaluation recommended, as described above. (E) ASSESSMENT CATEGORY: BIRADS Category 0: Incomplete. Need additional imaging evaluation. A letter regarding these results will be sent to the patient by the facility within 30 days. Approximately 10% of breast cancers are not detected by mammography. A normal mammogram should not delay biopsy of a clinically suspicious abnormality. [id number] Electronically Signed: Braeden Santillan MD at 13:13 EDT Tel , Service support ,
== END ==
PROVIDERS: PCP Family Medicine; Referring Provider Family Medicine; Visit Provider Family Medicine
DX: Z12.31 Encounter for screening mammogram for malignant neoplasm of breast (principal)
CPT/HCPCS: 77063; 77067

== ENCOUNTER → 2020-08-24 08:07 | Outpatient (CLI) | payer MEDICARE, OTHER, SELFPAY ==
--- NOTE | 2020-08-24 08:20 | BI_ITS ---
MAMMOGRAPHY - UNILATERAL DIAGNOSTIC: LEFT BREAST REASON FOR EXAM: Female, 80 years old. Abnormal screening mammogram. PERTINENT HISTORY: Grandmother with breast cancer. TECHNIQUE: Magnification spot views of the left breast in the mediolateral oblique and craniocaudad projections were obtained. CAD: Full Field Digital Mammography with Computer Added Detection was performed. COMPARISON: Comparison is made with prior mammogram dated 08/19/2020. FINDINGS: Breast Composition: The breasts are heterogeneously dense, which may obscure small masses. The calcifications in the upper outer quadrant of the right breast were examined. These have increased in number as compared to prior study. A biopsy is recommended. No other significant abnormalities are identified. BI/DIAG MAMM W/CAD, UNILAT IMPRESSION: Increased numbers of the calcifications seen in the upper-outer quadrant of the right breast. A biopsy is recommended. ASSESSMENT CATEGORY: BIRADS Category 4: Suspicious - Biopsy Should Be Considered. A letter regarding these results will be sent to the patient by the facility within 30 days. Approximately 10% of breast cancers are not detected by mammography. A normal mammogram should not delay biopsy of a clinically suspicious abnormality. Electronically Signed: Rahul Perez MD at 13:26 EDT , Service support ,
== END ==
PROVIDERS: PCP Family Medicine; Referring Provider Family Medicine; Visit Provider Family Medicine
DX: R92.0 Mammographic microcalcification found on diagnostic imaging of breast (principal); R92.8 Other abnormal and inconclusive findings on diagnostic imaging of breast
CPT/HCPCS: 77065

== ENCOUNTER → 2020-08-26 07:26 | Outpatient (CLI) | payer MEDICARE, OTHER, SELFPAY ==
[2020-08-25 13:41] VITALS: BMI 31.1
--- NOTE | 2020-08-26 | BRBX_PTH ---
PATIENT: GABRIELA GAMBOA LOC: [facility] U#:[id number] AGE/SX: 84/F ROOM: RE08/26/[address]: Dr. Saad Moreland MD : 1940 BED: DIS: SPEC #: [id number] RECD: 08/26/20 08:37 STATUS: JONG LINA #: [id number] VANNA: 08/26/20 00:[address]: Saad Moreland DEPT: SURGICAL PATHOLOGY RECD BY: Harjit Aguilar ENTERED: 08/26/20 08:38 SP TYPE: BREAST BX OTHR DR: Dr. Stephanie Partida DO Tissues: Left breast, NOS Procedures: Surgery Specimen Level IV HEADER OPERATION: Left stereotactic breast biopsy PRE-OP DIAGNOSIS: Left breast upper outer quadrant microcalcifications TISSUE SUBMITTED: Left breast core tissue ISCHEMIC TIME: 1 minute FIXATION TIME: 11.5 hours MICROSCOPIC DIAGNOSIS Left breast, upper outer quadrant microcalcifications, stereotactic core biopsy: Hyalinized fibroadenoma with focal calcifications. Negative for atypia or malignancy. See comment. JUANA:pau 08/27/2020 COMMENT The specimen predominantly consists of fatty breast tissue. Correlation with clinical, radiologic findings and appropriate follow up are necessary. MICROSCOPIC DESCRIPTION Slides are reviewed. GROSS DESCRIPTION Received in fixative is one container labeled with the patient name and designated left breast. The specimen consists of multiple elongated fragments of norman-yellow fibroadipose tissue that in aggregate measure 5 x 3 x 0.3 cm. The entire specimen is submitted in two cassettes. / JUANA:pau 08/26/20 TC:1 CPT: 36857
--- NOTE | 2020-08-26 07:01 | HP.PCM_ITS ---
Problem List (1) Abnormal mammogram of left breast Status: Acute History and Physical Date of Admission: 08/26/20 Intake Visit Reasons: Birads 4 R Breast Chief Complaint: ORIF left ankle Allergies No Known Allergies Allergy (Verified 08/25/20 13:42) Medications Atenolol [Tenormin] 25 mg PO BID 07/09/16 [History Confirmed 08/25/20] Isosorbide Mononitrate [Isosorbide Mononitrate ER] 60 mg PO DAILY 07/09/16 [History Confirmed 08/25/20] Amlodipine [Norvasc] 10 mg PO DAILY 12/10/16 [History Confirmed 08/25/20] Benazepril HCl 40 mg PO DAILY 12/10/16 [History Confirmed 08/25/20] Hydrochlorothiazide [Hctz] 25 mg PO DAILY 12/10/16 [History Confirmed 08/25/20] Simvastatin 20 mg PO QHS 12/10/16 [History Confirmed 08/25/20] Baclofen 5 - 10 mg PO BID 08/04/17 [History Confirmed 08/25/20] Aspirin [Aspirin EC] 81 mg PO DAILY 04/10/20 [History Confirmed 08/25/20] Meloxicam 15 mg PO DAILY 04/10/20 [History Confirmed 08/25/20] Nystatin [Mycostatin] 1 applic TOPICAL BID 04/10/20 [History Confirmed 08/25/20] Acetaminophen [Tylenol] 1,000 mg PO Q6H PRN tab 04/28/20 [Rx Confirmed 08/25/20] Menthol/Lanolin/Calamine/Znox [Calmoseptine Ointment] 1 applic TOPICAL BID tube 04/28/20 [Rx Confirmed 08/25/20] Nystatin Powder [Mycostatin Powder] 1 applic TOPICAL 0600,2200 bottle 04/28/20 [Rx Confirmed 08/25/20] Polyethylene Glycol 3350 [Miralax] 17 gm PO DAILY #30 packet 04/28/20 [Rx Confirmed 08/25/20] Senna/Docusate Sodium [Senokot-S] 1 tab PO BID #60 tab 04/28/20 [Rx Confirmed 08/25/20] calcium carbonate 500 mg calcium (1,250 mg) tablet 500 mg PO BID 08/25/20 [History Confirmed 08/25/20] mecobalamin (vitamin B12) 5,000 mcg disintegrating tablet mcg PO 08/25/20 [History Confirmed 08/25/20] omeprazole magnesium 20 mg tablet,delayed release 20 mg PO DAILY 08/25/20 [History Confirmed 08/25/20] [facility] Medical History (Updated 08/25/20 @ 14:[address] Saad Moreland MD) Abnormal mammogram of left breast (Acute) Unstable angina (Acute) Chronic back pain (Chronic) Debility (Acute) Open left ankle fracture (Acute) Dislocation of left ankle joint (Acute) Coronary artery disease (Chronic) Muscle spasm (Chronic) Osteoarthritis (Chronic) CAD (coronary artery disease) (Chronic) Hypertension (Chronic) Hyperlipidemia (Chronic) DVT (deep venous thrombosis) (Acute) Surgical History (Updated 08/25/20 @ 13:40 by Nikki Santillan) H/O heart artery stent (Acute) History of ankle surgery (Acute) S/P hernia repair (Acute) Family History (Updated 08/25/20 @ 13:41 by Nikki Santillan) Grandmother Breast cancer Social History (Updated 08/25/20 @ 14:[address] Saad Moreland MD) Smoking Status: Former smoker alcohol intake: current HPI HPI HPI: GABRIELA GAMBOA, is a 80 F who presents to the office today for surgical consultation regarding microcalcifications upper outer quadrant left breast. The patient is referred by Dr. Stephanie Partida and a written copy of my surgical consult and recommendations will be returned to her. 80-year-old female. A0. Menarche at age 12. First child was born when she was 21. She did breast-feed. No history of previous breast biopsies. Family history is only notable for a maternal grandmother who had breast cancer. The patient has no self breast exam complaints. No nipple discharge or bleeding. She presented for routine screening mammography. She then returned on August 24, 2020 for diagnostic left mammography. This demonstrated increased number of calcifications in the upper outer quadrant of the left breast. The initial report has a typo suggesting right breast but upon confirmation it is indeed the left breast that is of concern. [facility] Imaging Services [address] [place] [address] DIAG MAMM W/CAD, UNILAT MR#: [id number] Name: GABRIELA GAMBOA MITTENRep #:[id number] : 1940 80 From: Rahul Perez MD PCP:Dr. Stephanie Partida DO Status:REG CLI Study:DIAG MAMM W/CAD, UNILAT Date of Exam:08/24/20 Exam#[id number] Ordering Dr: Stephanie Partida DO MAMMOGRAPHY - UNILATERAL DIAGNOSTIC: LEFT BREAST REASON FOR EXAM: Female, 80 years old. Abnormal screening mammogram. PERTINENT HISTORY: Grandmother with breast cancer. TECHNIQUE: Magnification spot views of the left breast in the mediolateral oblique and craniocaudad projections were obtained. CAD: Full Field Digital Mammography with Computer Added Detection was performed. COMPARISON: Comparison is made with prior mammogram dated 08/19/2020. FINDINGS: Breast Composition: The breasts are heterogeneously dense, which may obscure small masses. The calcifications in the upper outer quadrant of the right breast were examined. These have increased in number as compared to prior study. A biopsy is recommended. No other significant abnormalities are identified. BI/DIAG MAMM W/CAD, UNILAT IMPRESSION: Increased numbers of the calcifications seen in the upper-outer quadrant of the left breast. A biopsy is recommended. ASSESSMENT CATEGORY: BIRADS Category 4: Suspicious - Biopsy Should Be Considered. A letter regarding these results will be sent to the patient by the facility within 30 days. Approximately 10% of breast cancers are not detected by mammography. A normal mammogram should not delay biopsy of a clinically suspicious abnormality. Electronically Signed: Rahul Perez MD at 13:26 EDT , Service support , HPI HPI HPI: GABRIELA GAMBOA, is a 80 F who presents to the office today for Exam Chest Other: Right breast: No focal mass. No nipple discharge. No axillary or clavicular adenopathy Left breast: No focal mass. No nipple discharge. No axillary or clavicular adenopathy Resp Effort & Inspection: normal respiratory effort Auscultation: clear to auscultation bilaterally Cardio Rate: regular rate Rhythm: regular rhythm Assessment & Plan Problems 1. Abnormal mammogram of left breast R92.8 Plan I have personally reviewed her films. There are actually 2 small clusters. The slightly larger cluster is slightly larger calcifications with a very small area of smaller calcifications. The smaller cluster is indeterminate. At the time of her office visit I propose that we do stereotactic needle core biopsy of the larger cluster. Based upon mammographic imaging these would appear to have a lower likelihood of malignancy. They are by enough distance that they could not be sampled in the same biopsy technique. I believe that they have a lower level suspicion. My thought at this time would be to sample the larger area await for pathology and then make further determination and recommendations. If she were to require an excisional technique then the secondary area could be removed at that time. She has had an opportunity to ask and have questions answered. We will schedule and expedite her care tomorrow. I will leave open the opportunity to perform the secondary biopsy at the time of her stereotactic if it seems pertinent at the time of the procedure. Copy: Dr. Stephanie Moreland M.D., F.A.C.S. Coding Level of Care Code 41943 Diagnoses Abnormal mammogram of left breast R92.8 I have re-examined the patient. There are no clinical changes since date of exam. Procedure Criteria Procedure Type: Elective COVID Risk Discussion: The surgeon/proceduralist and patient have discussed in detail the risk of exposure to and/or potential harm posed by the COVID-19 virus with having a surgery/procedure at this time versus the risk of delaying the surgery/procedure. It is not possible to know either the risk of delaying the surgery or procedure or chance of getting an infection with perfect accuracy, but a joint decision was made between the patient and the surgeon/proceduralist to proceed at this time with the scheduled surgery/procedure as indicated on the consent form.
--- NOTE | 2020-08-26 08:13 | OP.PCM_ITS ---
Problem List (1) Abnormal mammogram of left breast Status: Acute Report of Operation Date of Procedure: 08/26/20 Pre-Operative Diagnosis: Microcalcifications upper outer left breast Post-Operative Diagnosis: Same Surgery/Procedure Performed:: Stereotactic needle core biopsy upper outer quadrant left breast Description of Surgical Findings:: Timeout and informed consent was obtained. 80-year-old female was taken to the stereotactic room and placed prone on the table. The left breast was placed in a cc view. The microcalcifications in question rapidly identified. Stereotactic images were obtained. Digital information was obtained on a single target site. The breast was prepped with Betadine. 1% lidocaine was used as a local anesthetic. Total 10 cc was used. Small stab incision was created. 8 gauge mammotome needle was advanced to prefire depth. Prefire films were obtained demonstrating adequate localization. The device was fired. 6 cores were obtained. Specimen mammogram was obtained. The specimen mammogram demonstrated multiple microcalcifications consistent with the preoperative concern. A dog bone marking clip was placed at 12 o'clock position. She was r eleased from the device. Pressure was held for hemostasis. Steri-Strips Telfa OpSite dressing applied. She was given activity wound care instructions. The specimens were immediately transferred to formalin. Blood loss minimal. No apparent complications. Saad Moreland M.D., F.A.C.S. Type of Anesthesia:: Local
== END ==
PROVIDERS: PCP Family Medicine; Referring Provider Surgery; Visit Provider Surgery
DX: R92.1 Mammographic calcification found on diagnostic imaging of breast (principal); I25.10 Atherosclerotic heart disease of native coronary artery without angina pectoris; Z79.1 Long term (current) use of non-steroidal anti-inflammatories (NSAID); Z79.82 Long term (current) use of aspirin; Z80.3 Family history of malignant neoplasm of breast; Z87.891 Personal history of nicotine dependence; I10 Essential (primary) hypertension; E78.5 Hyperlipidemia, unspecified; G89.29 Other chronic pain; M54.9 Dorsalgia, unspecified
CPT/HCPCS: 19081; 88305; J7050

== ENCOUNTER 2020-12-21 07:28 | Emergency (ER) | payer MEDICARE, OTHER, SELFPAY ==
[2020-08-25 13:41] VITALS: BMI 31.1
[2020-12-21 07:29] VITALS: BP 155/76; PULSE 129; RESP 19; TEMP 37.1; O2SAT 97; BMI 31.3
--- NOTE | 2020-12-21 07:46 | EDS_ITS ---
HPI History of Present Illness Chief Complaint: General Illness Informant: patient Narrative Narrative: Patient is an 80-year-old female who presents to the ED for multiple complaints. She states that her neck has been feeling stiff on the right side as well as bilateral knee pain. Walking seems to make it worse. No significant swelling or overlying skin changes. She has been feeling nauseous. She states that she was up frequently to pee last night. Her symptoms started yesterday. She did try taking a home pain pill as well as muscle relaxer which did not give her any relief. She states she does have chronic neck pain is supposed to have an injection soon. She does have arthritis throughout her body. She denies any episodes of vomiting and has not been having any diarrhea. She denies any painful urination or blood in the urine. She denies a cough, URI symptoms. She has been vaccinated for Covid. She thought that she had a fever and took it but it was 99.3. She states that this is high for her. [facility] Medical History Abnormal mammogram of left breast CAD (coronary artery disease) Chronic back pain Coronary artery disease Debility Dislocation of left ankle joint DVT (deep venous thrombosis) Hyperlipidemia Hypertension Muscle spasm Open left ankle fracture Osteoarthritis Unstable angina Home Medications atenolol 25 mg PO BID 07/09/16 [History Last Taken 04/10/20] isosorbide mononitrate 60 mg PO DAILY 07/09/16 [History Last Taken 04/10/20] amlodipine 10 mg PO DAILY 12/10/16 [History Last Taken 04/10/20] benazepril 40 mg PO DAILY 12/10/16 [History Last Taken 04/29/18] hydrochlorothiazide 25 mg PO DAILY 12/10/16 [History Last Taken 04/10/20] simvastatin 20 mg PO QHS 12/10/16 [History Last Taken 04/09/20] baclofen 5 - 10 mg PO BID 08/04/17 [History Last Taken 04/09/20] aspirin 81 mg PO DAILY 04/10/20 [History Last Taken 04/10/20] meloxicam 15 mg PO DAILY 04/10/20 [History Last Taken Unknown] acetaminophen 1,000 mg PO Q6H PRN tab 04/28/20 [Rx Last Taken Unknown] calcium carbonate 500 mg calcium (1,250 mg) tablet 500 mg PO BID 08/25/20 [History Last Taken Unknown] mecobalamin (vitamin B12) 5,000 mcg disintegrating tablet mcg PO 08/25/20 [History Last Taken Unknown] omeprazole magnesium 20 mg tablet,delayed release 20 mg PO DAILY 08/25/20 [History Last Taken Unknown] alendronate 70 mg PO QWEEK 12/21/20 [History Last Taken Unknown] Allergy/AdvReac Type Severity Reaction Status Date / Time No Known Allergies Allergy Verified 12/21/20 07:29 Family History (Updated 08/25/20 @ 13:41 by Nikki Santillan) Grandmother Breast cancer Surgical History H/O heart artery stent History of ankle surgery S/P hernia repair Social History Smoking Status: Former smoker alcohol intake: current ROS ROS ED Constitutional Constitutional ED: Denies chills or fever(s) Eyes Eyes: Denies change in vision ENT ENT ED: Denies epistaxis or rhinorrhea Cardiovascular Cardiovascular: Denies chest pain Respiratory/Chest Respiratory/Chest: Denies cough or dyspnea Gastrointestinal Gastrointestinal: Reports nausea; Denies abdominal pain, diarrhea or vomiting Genitourinary Genitourinary ED: Denies dysuria or hematuria Musculoskeletal Musculoskeletal: Reports arthralgias and neck pain; Denies back pain Integumentary Denies rash Neurologic Neurologic: Denies dizziness, headache(s) or weakness EXAM Physical Exam Const Vital Signs: 12/21/20 07:29 12/21/20 08:04 12/21/20 09:32 Temperature 98.7 F Temperature Source Temporal Pulse Rate 129 H 95 Respiratory Rate 19 H 16 Respiratory Effort Normal Non-Labored Respiratory Pattern Normal Blood Pressure 155/76 H 120/57 L Blood Pressure Mean 102 Pulse Ox 97 96 Oxygen Delivery Method Room Air Positive well nourished and well developed General Appearance ED: well developed and NAD HEENT Reports normocephalic and head/scalp atraumatic Eyes PERRL and EOMs intact bilaterally Neck no lymphadenopathy and supple General: Negative for tenderness Chest Wall inspection of chest normal Resp normal respiratory effort and clear to auscultation bilaterally Auscultation: Negative for rales, rhonchi or wheezes Cardio regular rhythm and no murmurs Rate: tachycardic GI normal to inspection, nondistended, normoactive bowel sounds and non-tender Palpation: soft; Negative for guarding or rebound tenderness present Extremity normal to inspection General Extremety ED: Negative for edema or tenderness General Extremity: Negative for edema Neuro oriented x3, CN's II-XII intact bilaterally and no sensory deficits noted Sensorium / Orientation: alert Motor Exam: strength 5/5 throughout Psych mental status grossly normal Skin no rashes or lesions noted MDM MDM MDM Narrative Medical decision making narrative: Patient presents to the emergency department for neck pain, bilateral knee pain, nausea and feeling like she had a fever. On arrival to the emergency department her vital signs show that she is tachycardic. She is afebrile at this time and satting well on room air. With the increased frequency, tachycardia urinalysis being obtained and IV fluids started. Will check basic lab work. She is given a dose of Tylenol and Zofran for symptomatic treatment. Patient's lab work-up showed a mild elevation of her white blood cell count to 12.6. No significant electrolyte disturbance. Her creatinine appears to be at baseline. Her urine does not show any evidence of infection. On reevaluation s he is feeling much better. Her heart rate has returned to normal. Return precautions are reviewed with her. She does feel comfortable going home at this time. She is going to follow-up with her PCP. She notes any worsening symptoms she is going to return back to the ED. She understands and is agreeable with this plan. All questions were answered. Lab Data Labs: Laboratory Results - last 24 hr 12/21/20 12/21/20 12/21/20 07:50 07:50 08:35 WBC 12.6 H RBC 4.61 Hgb 13.9 Hct 42.3 MCV 91.8 MCH 30.2 MCHC 32.9 RDW Std Deviation 42.2 RDW Coeff of [place] 12.7 Plt Count 246 MPV 9.2 Immature Gran % (Auto) 0.500 Neut % (Auto) 78.8 H Lymph % (Auto) 9.6 L [place] % (Auto) 7.2 Eos % (Auto) 3.3 Baso % (Auto) 0.6 Absolute Neuts (auto) 9.9 H Absolute Lymphs (auto) 1.20 Nucleated RBC % 0 Sodium 137 Potassium 3.8 Chloride 104 Carbon Dioxide 26.0 Anion Gap 7 BUN 26 H Creatinine 1.17 H Estim Creat Clear Calc 30.33 Est GFR (MDRD) Af Amer 57 L Est GFR (MDRD) Non-Af 47 L BUN/Creatinine Ratio 22.2 H Glucose 168 H Calcium 9.2 Total Bilirubin 0.60 AST 18 ALT 22 Alkaline Phosphatase 62 Total Protein 7.2 Albumin 3.7 Globulin 3.5 Albumin/Globulin Ratio 1.1 Urine Color Yellow Urine Clarity Sl. Cloudy Urine pH 6.0 Ur Specific [place] 1.010 Urine Protein 15 H Urine Glucose (UA) Normal Urine Ketones Negative Urine Occult Blood Negative Urine Nitrite Negative Urine Bilirubin Negative Urine Urobilinogen Normal Ur Leukocyte Esterase Negative Urine RBC 0 SEEN Urine WBC 0 SEEN Ur Squamous Epith Cells 0-5 SEEN Other Crystals 2+ Urine Bacteria 0 SEEN Urine Mucus 0 SEEN Discharge Plan Triage Chief Complaint: General Illness ED Provider: Marcelino Lazo Dx/Rx/DC Orders Clinical Impression: Knee pain, bilateral, Neck pain Instructions: ED Knee Pain of Uncertain Cause, ED Neck Pain Prescriptions: No Action mecobalamin (vitamin B12) 5,000 mcg tablet,disintegrating PO RF: 0 omeprazole magnesium [Prilosec OTC] 20 mg tablet,delayed release (DR/EC) 20 mg PO DAILY RF: 0 calcium carbonate [Calcium 500] 500 mg calcium (1,250 mg) tablet 500 mg PO BID RF: 0 atenolol 25 MG tablet 25 mg PO BID RF: 0 isosorbide mononitrate 60 MG tablet extended release 24 hr 60 mg PO DAILY RF: 0 amlodipine 10 MG tablet 10 mg PO DAILY RF: 0 simvastatin 20 MG tablet 20 mg PO QHS RF: 0 hydrochlorothiazide 25 MG tablet 25 mg PO DAILY RF: 0 benazepril 40 MG tablet 40 mg PO DAILY RF: 0 baclofen 10 MG tablet 5 - 10 mg PO BID RF: 0 meloxicam 15 MG tablet 15 mg PO DAILY RF: 0 aspirin 81 MG tablet,delayed release (DR/EC) 81 mg PO DAILY RF: 0 acetaminophen 500 MG tablet 1,000 mg PO Q6H PRN (Reason: Pain Score 1-3) RF: 0 alendronate 70 mg Tablet 70 mg PO QWEEK RF: 0 Primary Care Provider: Stephanie Partida Referrals: Stephanie Partida DO [Primary Care Provider] - 3-5 Days Disposition Disposition: Home, Self Care Discharge Date/Time: 12/21/20 09:33
[2020-12-21] MEDS: Acetaminophen 325 MG Tablet 650 MG PO (07:55)
[2020-12-21] MEDS: Ondansetron 4 MG/2 ML Vial IV (07:55)
[2020-12-21] MEDS: 0.9% Normal Saline 1,000 ML 1000 ML IV (07:55)
[2020-12-21 07:56] LABS: Absolute Neutrophil Count 9.9 X10^3/uL (2.0-7.7); Basophil# 0.08 X10^3/uL; Basophil% 0.6 % (0-1); Eosinophil# 0.41 X10^3/uL; Eosinophils% 3.3 % (0-5); Hematocrit 42.3 % (37-47); Hemoglobin 13.9 g/dL (12.0-15.0); Lymphocyte % 9.6 % (19-41); Mean Corp Hgb Conc 32.9 g/dL (32-36); Mean Corpuscular Hgb 30.2 pg (27.0-32.0); Mean Corpuscular Volume 91.8 fL (81-99); Mean Platelet Vol. 9.2 fl (6.2-12.0); Monocyte% 7.2 % (0-10); NRBC Flagged by Analyzer 0 % (0-5); Neutrophil # 9.91 X10^3/uL (2.7-7.7); Neutrophil % 78.8 % (47-70); Platelet Count 246 K/mm3 (150-450); RBC Distribution Width CV 12.7 % (11.6-14.6); RBC Distribution Width SD 42.2 fl (35.1-43.9); Red Blood Count 4.61 M/mm3 (4.2-5.4); White Blood Count 12.6 K/mm3 (4.4-11.0)
[2020-12-21 08:12] LABS: ALB/GLOB Ratio 1.1 RATIO (0.9-2.4); AST(SGOT) 18 U/L (15-37); Alanine Aminotransfer ALT/SGPT 22 U/L (13-56); Albumin, Serum 3.7 g/dL (3.2-5.0); Alkaline Phosphatase 62 U/L (45-117); Anion Gap 7 (5-15); BUN 26 mg/dL (7-18); BUN/Creat Ratio 22.2 RATIO (10-20); Calcium,Total 9.2 mg/dL (8.5-10.1); Chloride 104 mmol/L (98-107); Creatinine, Serum 1.17 mg/dL (0.55-1.02); EST Glomerular Filtration Rate 47 mL/min (>60); Est Glom Filt Rate - Afr Amer 57 mL/min (>60); Estimated Creatinine Clearance 30.33 ml/min; Globulin 3.5 g/dL (2.2-4.2); Glucose 168 mg/dL (74-106); Potassium 3.8 mmol/L (3.5-5.1); Protein, Total 7.2 g/dL (6.4-8.2); Sodium Level 137 mmol/L (136-145)
[2020-12-21 08:40] LABS: Bacteria 0 SEEN /hpf (None Seen); Mucous, Urine 0 SEEN /hpf (<or=2+); Red Blood Cells-Urine 0 SEEN /hpf (0-5); White Blood Cells 0 SEEN /hpf (0-5)
[2020-12-21 08:43] LABS: Color, Urine Yellow (Yellow); Glucose, Dipstick Normal (Normal); Ketone-Dipstick Negative (Negative); Leukocyte Esterase-Dipstick Negative /ul (Negative); Nitrite-Dipstick Negative (Negative); Occult Blood-Urine Negative /ul (Negative); Protein-Dipstick 15 mg/dl (Negative); Urine Bilirubin Dipstick Negative (Negative); Urine Clarity Sl. Cloudy (Clear); Urine Urobilinogen Normal (Normal)
[2020-12-21 08:49] LABS: Squamous Epithelial Cells - UA 0-5 SEEN /hpf (5-10)
[2020-12-21 08:51] LABS: Other Crystals-Urine 2+ /hpf (None Seen)
[2020-12-21 09:32] VITALS: BP 120/57; PULSE 95; RESP 16; O2SAT 96
== END 2020-12-21 09:33 | disposition home or self-care (01) ==
PROVIDERS: Emergency Provider Emergency Medicine; PCP Family Medicine
DX: M54.2 Cervicalgia (principal); M25.562 Pain in left knee; M25.561 Pain in right knee; E78.5 Hyperlipidemia, unspecified; I10 Essential (primary) hypertension; I25.10 Atherosclerotic heart disease of native coronary artery without angina pectoris; M19.90 Unspecified osteoarthritis, unspecified site; G89.29 Other chronic pain; Z79.1 Long term (current) use of non-steroidal anti-inflammatories (NSAID); Z79.82 Long term (current) use of aspirin; Z87.891 Personal history of nicotine dependence
CPT/HCPCS: 80053; 81001; 85025; 96361; 96374; 99284; J7030; J2405

== ENCOUNTER → 2021-02-01 07:12 | Outpatient (CLI) | payer MEDICARE, OTHER, SELFPAY ==
--- NOTE | 2021-02-01 19:43 | STRESSREP ---
Stress Test Report Exercise myocardial perfusion stress test. 80-year-old lady with a history of chest pressure on exertion. Medications atenolol isosorbide Norvasc benazepril. Stress protocol: Resting KG demonstrates normal sinus rhythm with a rate of 80 bpm resting blood pressure is 160/84 mmHg. The patient exercised according to the regular Milad protocol for total duration of 4 minutes. Patient completed 1 minute into stage II of the Milad protocol. The maximum heart rate attained was 162 bpm which was 115% of maximum predicted heart rate the maximum workload was 7 metabolic equivalents. At rest there were no ST or T wave changes noted to suggest ischemia and at peak exercise upsloping ST changes were noted with did not meet the criteria for ischemia. No clinical angina was noted the test was terminated due to target heart rate being achieved as well as dyspnea. The peak blood pressure was 180/72 mmHg. Myocardial perfusion protocol. 10.8 mCi of technetium 99m sestamibi was injected at rest. The patient exercised according to regular Milad protocol for 4 minutes and at peak exercise 32.9 mCi of technetium 99m sestamibi was injected stress images were obtained stress and rest images were reconstructed and compared in the short axis vertical long horizontal long axis. Gated images were also obtained. Perfusion SPECT analysis: Review of the stress images demonstrate normal uptake of tracer noted in all areas of the myocardium. The resting images similarly demonstrated normal uptake of tracer noted in all areas of the myocardium. No areas of reversibility are noted to suggest ischemia and no previous infarct is noted. Gated SPECT analysis: The gated ejection fraction is 80%. Conclusion: Normal exercise myocardial perfusion stress test at a moderate workload. No clinical angina noted. Preserved ejection fraction.
== END ==
PROVIDERS: PCP Family Medicine; Referring Provider Family Medicine; Visit Provider Family Medicine
DX: R07.9 Chest pain, unspecified (principal); Z98.890 Other specified postprocedural states; Z95.5 Presence of coronary angioplasty implant and graft
CPT/HCPCS: 78452; 93017; A9500

== ENCOUNTER 2021-02-13 07:48 | Emergency (ER) | payer MEDICARE, OTHER, SELFPAY ==
[2021-02-13 07:48] VITALS: BP 173/99; PULSE 98; RESP 16; TEMP 36.4; O2SAT 100; BMI 31.4
--- NOTE | 2021-02-13 08:00 | CT_ITS ---
STUDY: CT ABDOMEN AND PELVIS WITHOUT CONTRAST REASON FOR EXAM: Female, 80 years old. left flank pain RADIATION DOSAGE (If Supplied By Facility): CTDIvol = ( 14.14 ) mGy, DLP = ( 635.82 ) mGycm TECHNIQUE: Transaxial images were obtained from the dome of the diaphragm to the symphysis pubis without oral contrast, and without intravenous contrast. Sagittal and coronal images were reconstructed. Individualized dose optimization techniques were used for this CT. COMPARISON: 07/04/2017 FINDINGS: The visualized lung bases are unremarkable. The visualized portions of the heart are within normal limits. Normal liver. Normal gallbladder and extrahepatic biliary system. Normal spleen. Normal pancreas. Normal bilateral adrenal glands. 3 mm nonobstructing stone in the lower pole the right kidney. No change in the severe hydronephrosis and dilatation of the proximal left ureter with severe parenchymal atrophy consistent with chronic obstruction.. Normal visualized stomach. Normal small intestine. There are multiple colonic diverticula consistent with diverticulosis. The appendix is visualized and appears normal. Normal abdominal aorta. Normal inferior vena cava. Normal retroperitoneum. Normal urinary bladder. 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 Normal abdominal wall. Mild dextroscoliosis of lumbar spine with degenerative disc disease. CT/Abdomen/Pelvis without Cont IMPRESSION: 1. 3 mm nonobstructing right renal stone. 2. 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 3. Sigmoid diverticulosis without diverticulitis. Electronically Signed: Alec Garcia MD at 9:41 EDT Tel , Service support ,
--- NOTE | 2021-02-13 08:01 | EDS_ITS ---
HPI History of Present Illness Chief Complaint: Flank Pain Detail of Chief Complaint: Left flank pain that started 2 weeks ago Informant: patient Onset/Context/Timing Current Severity: 02/21 Narrative Narrative: Patient presents to the emergency department with left-sided back pain x2 weeks. Patient has history of chronic back pain and sees pain management whom she saw for this. She states the pain has been intermittent but became more severe today. Patient also noted some blood in her urine today. She has remote history of kidney stones but then after seeing the blood in her urine today thought she might be passing a kidney stone so presents for evaluation. She rates her pain a 9 or 10 out of 10. She had no nausea or vomiting. She denies fever. She denies dysuria. She denies any injury to her back. Pain does not radiate down her legs. Patient states the pain is not positional and just hurts all the time. [facility] Medical History Abnormal mammogram of left breast CAD (coronary artery disease) Chronic back pain Coronary artery disease Debility Dislocation of left ankle joint DVT (deep venous thrombosis) Hyperlipidemia Hypertension Muscle spasm Open left ankle fracture Osteoarthritis Unstable angina Home Medications atenolol 25 mg PO BID 07/09/16 [History Last Taken 04/10/20] isosorbide mononitrate 60 mg PO DAILY 07/09/16 [History Last Taken 04/10/20] amlodipine 10 mg PO DAILY 12/10/16 [History Last Taken 04/10/20] benazepril 40 mg PO DAILY 12/10/16 [History Last Taken 04/29/18] hydrochlorothiazide 25 mg PO DAILY 12/10/16 [History Last Taken 04/10/20] simvastatin 20 mg PO QHS 12/10/16 [History Last Taken 04/09/20] baclofen 5 - 10 mg PO BID 08/04/17 [History Last Taken 04/09/20] aspirin 81 mg PO DAILY 04/10/20 [History Last Taken 04/10/20] meloxicam 15 mg PO DAILY 04/10/20 [History Last Taken Unknown] calcium carbonate 500 mg calcium (1,250 mg) tablet 500 mg PO BID 08/25/20 [History Last Taken Unknown] alendronate 70 mg PO QWEEK 12/21/20 [History Last Taken Unknown] diazepam [Valium] 2 mg PO TID PRN 3 Days #14 tab 02/13/21 [Rx Last Taken Unknown] hydrocodone-acetaminophen 1 tab PO BID PRN 02/13/21 [History Last Taken Unknown] magnesium oxide 400 mg PO BID 02/13/21 [History Last Taken Unknown] vit C-[id number] sd [Tart Garza] 1 cap PO DAILY 02/13/21 [History Last Taken Unknown] Allergy/AdvReac Type Severity Reaction Status Date / Time No Known Allergies Allergy Verified 02/13/21 07:51 Family History (Updated 08/25/20 @ 13:41 by Nikki Santillan) Grandmother Breast cancer Surgical History H/O heart artery stent History of ankle surgery S/P hernia repair Social History Smoking Status: Former smoker alcohol intake: current ROS ROS ED Constitutional Constitutional ED: Reports systems reviewed and no addt'l complaints, except as documented; Denies body ache(s), change in weight or chills Eyes Eyes: Denies acute decrease in peripheral vision, change in vision, double vision or loss of vision ENT ENT ED: Reports none; Denies ear pain, lip swelling, loss taste/smell, neck pain, otalgia or sore throat Cardiovascular Cardiovascular: Reports none; Denies abdominal pain, chest pain with activity, leg edema, lightheadedness, palpitations, rapid heart rate or syncope Respiratory/Chest Respiratory/Chest: Reports none; Denies change in mental status, dry cough, dyspnea, hemoptysis, shortness of breath at rest or shortness of breath with exertion Gastrointestinal Gastrointestinal: Reports none; Denies abdominal pain, change in stool character, diarrhea, hematemesis, hematochezia, melena, rectal bleeding or vomiting Genitourinary Genitourinary ED: Reports none and hematuria; Denies abdominal discomfort, anuria, dysuria, genital pain or polyuria Musculoskeletal Musculoskeletal: Reports none and back pain; Denies arthralgias, difficulty walking, extremity pain, muscle weakness or myalgias Integumentary Reports none; Denies abscess or rash Neurologic Neurologic: Reports none; Denies abnormal gait, confusion, focal weakness, frequent falls, headache(s), loss of vision, numbness, paresthesias, radicular pain, vertigo or weakness Psychiatric Psychiatric: Reports systems reviewed and no addt'l complaints, except as documented and none; Denies behavioral changes, confusion, difficulty concentrating, hallucinations, suicidal ideation, tactile hallucinations or visual hallucinations Endocrine Endocrinology: Denies none, cold intolerance, excessive sweating, fatigue or heat intolerance Hematologic/Lymphatic Hematologic/Lymphatic: Reports none; Denies anemia, easy bleeding or easy bruising Allergic/Immunologic Allergic/Immunologic ED: Denies as per HPI, none, lip swelling, mouth swelling, throat swelling, tongue swelling or hives EXAM Physical Exam Const Vital Signs: 02/13/21 07:48 Temperature 97.5 F L Temperature Source Temporal Pulse Rate 98 Respiratory Rate 16 Blood Pressure 173/99 H Blood Pressure Mean 123 Pulse Ox 100 Oxygen Delivery Method Room Air Positive well nourished and well developed General Appearance ED: well developed and NAD HEENT Reports TM's clear and moist mucous membranes normocephalic and atraumatic; Negative for trauma or tenderness Tympanic Membrane ED: Yes TM's clear Eyes PERRL and EOMs intact bilaterally General Eye ED: Negative for pale conjunctiva or scleral icterus Neck no lymphadenopathy, supple and no JVD General: Negative for tenderness Chest Wall inspection of chest normal and palpation of chest normal Chest: Negative for tenderness Resp normal respiratory effort and clear to auscultation bilaterally Effort and Inspection: Negative for respiratory distress or pain with movement Auscultation: Negative for rhonchi, wheezes or diminished lung sounds Cardio regular rate, regular rhythm, S1 normal heart sound, S2 normal heart sound and no murmurs Peripheral Pulses: pulses 2+ throughout GI normal to inspection, nondistended, normoactive bowel sounds, soft to palpation, non-tender, non-distended and no masses Back/Spine no thoracic nor lumbar tenderness Back/Spine Narrative: Patient has CVA tenderness on the left with tenderness to the left lumbar paraspinal musculature as well. Negative straight leg raises. Deep tendon reflexes plus 2 out of 4 bilaterally at the patella and Achilles. Patient has normal L5 extension. Patient has normal sensation to light touch. Extremity normal to inspection General Extremety ED: Negative for edema General Extremity: Negative for edema Neuro oriented x3, CN's II-XII intact bilaterally, no sensory deficits noted and gait normal Sensorium / Orientation: awake, alert, oriented to person, oriented to place and oriented to time Motor Exam: strength 5/5 throughout and strength abnormal Psych mental status grossly normal Skin no rashes or lesions noted and no wounds MDM MDM MDM Narrative Medical decision making narrative: I spoke pain is musculoskeletal. Initially she received Dilaudid and Zofran and had pain reduction was 7 out of 10 however she complained of intermittent spasms and was given Valium 4 mg p.o. Patient had good pain relief with that. Patient advised to follow-up with her primary care physician pain management doctor for further management of her pain. Patient will be started on Valium. Lab Data Attestation: I reviewed the patient's lab results. Labs: Laboratory Results - last 24 hr 02/13/21 02/13/21 02/13/21 08:36 08:36 08:36 WBC 10.0 RBC 4.54 Hgb 13.6 Hct 43.1 MCV 94.9 MCH 30.0 MCHC 31.6 L RDW Std Deviation 46.9 H RDW Coeff of [place] 13.3 Plt Count 227 MPV 9.7 Immature Gran % (Auto) 0.500 Neut % (Auto) 71.4 H Lymph % (Auto) 16.7 L [place] % (Auto) 7.5 Eos % (Auto) 3.3 Baso % (Auto) 0.6 Absolute Neuts (auto) 7.1 Absolute Lymphs (auto) 1.67 Nucleated RBC % 0 Sodium 143 Potassium 4.5 Chloride 111 H Carbon Dioxide 25.0 Anion Gap 7 BUN 30 H Creatinine 1.06 H Estim Creat Clear Calc 33.48 Est GFR (MDRD) Af Amer 64 Est GFR (MDRD) Non-Af 53 L BUN/Creatinine Ratio 28.3 H Glucose 133 H Calcium 9.3 Urine Color Yellow Urine Clarity Clear Urine pH 6.0 Ur Specific [place] 1.015 Urine Protein 15 H Urine Glucose (UA) Normal Urine Ketones Negative Urine Occult Blood Negative Urine Nitrite Negative Urine Bilirubin Negative Urine Urobilinogen Normal Ur Leukocyte Esterase Negative Urine RBC 0 SEEN Urine WBC 0 SEEN Ur Squamous Epith Cells 0 SEEN Urine Bacteria 0 SEEN Urine Mucus 0 SEEN Radiography Diagnostic Testing: Radiology Impression Abdomen/Pelvis CT 02/13/21 08:00 IMPRESSION: 1. 3 mm nonobstructing right renal stone. 2. 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 3. Sigmoid diverticulosis without diverticulitis. Electronically Signed: Alec Garcia MD at 9:41 EDT Tel , Service support , Discharge Plan Triage Chief Complaint: Flank Pain ED Provider: Zaid Torres Dx/Rx/DC Orders Clinical Impression: Back pain Instructions: ED Back Pain (Acute or Chronic) Prescriptions: New diazepam [Valium] 2 mg tablet 2 mg PO TID PRN (Reason: muscle spasm) 3 Days Qty: 14 RF: 0 No Action calcium carbonate [Calcium 500] 500 mg calcium (1,250 mg) tablet 500 mg PO BID RF: 0 atenolol 25 MG tablet 25 mg PO BID RF: 0 isosorbide mononitrate 60 MG tablet extended release 24 hr 60 mg PO DAILY RF: 0 amlodipine 10 MG tablet 10 mg PO DAILY RF: 0 simvastatin 20 MG tablet 20 mg PO QHS RF: 0 hydrochlorothiazide 25 MG tablet 25 mg PO DAILY RF: 0 benazepril 40 MG tablet 40 mg PO DAILY RF: 0 baclofen 10 MG tablet 5 - 10 mg PO BID RF: 0 meloxicam 15 MG tablet 15 mg PO DAILY RF: 0 aspirin 81 MG tablet,delayed release (DR/EC) 81 mg PO DAILY RF: 0 alendronate 70 mg Tablet 70 mg PO QWEEK RF: 0 hydrocodone-acetaminophen 5-325 mg tablet 1 tab PO BID PRN (Reason: Pain) RF: 0 magnesium oxide 400 mg (241.3 mg magnesium) tablet 400 mg PO BID RF: 0 Tart Garza [id number] mg Capsule 1 cap PO DAILY RF: 0 Primary Care Provider: Stephanie Partida Referrals: Stephanie Partida DO [Primary Care Provider] - 3-5 Days Activity Restrictions/Additional Instructions: See your pain management doctor if your pain is uncontrolled Disposition Disposition: Home, Self Care
[2021-02-13 08:50] LABS: Bacteria 0 SEEN /hpf (None Seen); Mucous, Urine 0 SEEN /hpf (<or=2+); Red Blood Cells-Urine 0 SEEN /hpf (0-5); Squamous Epithelial Cells - UA 0 SEEN /hpf (5-10); White Blood Cells 0 SEEN /hpf (0-5)
[2021-02-13 08:52] LABS: Absolute Lymphocyte Count 1.67 X10^3/uL (0.83-4.51); Absolute Neutrophil Count 7.1 X10^3/uL (2.0-7.7); Basophil# 0.06 X10^3/uL; Basophil% 0.6 % (0-1); Eosinophil# 0.33 X10^3/uL; Eosinophils% 3.3 % (0-5); Hematocrit 43.1 % (37-47); Hemoglobin 13.6 g/dL (12.0-15.0); Lymphocyte # 1.67 X10^3/ul (0.83-4.51); Lymphocyte % 16.7 % (19-41); Mean Corp Hgb Conc 31.6 g/dL (32-36); Mean Corpuscular Volume 94.9 fL (81-99); Mean Platelet Vol. 9.7 fl (6.2-12.0); Monocyte# 0.75 X10^3/uL; Monocyte% 7.5 % (0-10); NRBC Flagged by Analyzer 0 % (0-5); Neutrophil # 7.12 X10^3/uL (2.7-7.7); Neutrophil % 71.4 % (47-70); Platelet Count 227 K/mm3 (150-450); RBC Distribution Width CV 13.3 % (11.6-14.6); RBC Distribution Width SD 46.9 fl (35.1-43.9); Red Blood Count 4.54 M/mm3 (4.2-5.4)
[2021-02-13] MEDS: 0.9% Normal Saline 1,000 ML 150 ML IV (08:58)
[2021-02-13] MEDS: HYDROcodone Bitartrate/Apap 5/325 Tablet PO (08:58)
[2021-02-13] MEDS: Ondansetron 4 MG/2 ML Vial IV (09:00)
[2021-02-13 09:14] LABS: Anion Gap 7 (5-15); BUN 30 mg/dL (7-18); BUN/Creat Ratio 28.3 RATIO (10-20); Calcium,Total 9.3 mg/dL (8.5-10.1); Chloride 111 mmol/L (98-107); Color, Urine Yellow (Yellow); Creatinine, Serum 1.06 mg/dL (0.55-1.02); EST Glomerular Filtration Rate 53 mL/min (>60); Est Glom Filt Rate - Afr Amer 64 mL/min (>60); Estimated Creatinine Clearance 33.48 ml/min; Glucose 133 mg/dL (74-106); Glucose, Dipstick Normal (Normal); Ketone-Dipstick Negative (Negative); Leukocyte Esterase-Dipstick Negative /ul (Negative); Nitrite-Dipstick Negative (Negative); Occult Blood-Urine Negative /ul (Negative); Potassium 4.5 mmol/L (3.5-5.1); Protein-Dipstick 15 mg/dl (Negative); Sodium Level 143 mmol/L (136-145); Specific Gravity, Urine 1.015 (1.002-1.030); Urine Bilirubin Dipstick Negative (Negative); Urine Clarity Clear (Clear); Urine Urobilinogen Normal (Normal)
[2021-02-13] MEDS: diazePAM 2 MG Tablet 4 MG PO (10:11)
[2021-02-13 11:18] VITALS: BP 144/76; PULSE 78; RESP 18
== END 2021-02-13 11:20 | disposition home or self-care (01) ==
PROVIDERS: Emergency Provider Emergency Medicine; PCP Family Medicine
DX: M54.9 Dorsalgia, unspecified (principal); N13.2 Hydronephrosis with renal and ureteral calculous obstruction; K57.30 Diverticulosis of large intestine without perforation or abscess without bleeding; Z87.891 Personal history of nicotine dependence; E78.5 Hyperlipidemia, unspecified; G89.29 Other chronic pain; I10 Essential (primary) hypertension; I25.10 Atherosclerotic heart disease of native coronary artery without angina pectoris; Z79.1 Long term (current) use of non-steroidal anti-inflammatories (NSAID); Z79.82 Long term (current) use of aspirin; Z87.442 Personal history of urinary calculi
CPT/HCPCS: 74176; 80048; 81001; 85025; 96361; 96374; 99284; A4216; J2405

== ENCOUNTER → 2021-02-16 16:56 | Outpatient (CLI) | payer MEDICARE, OTHER, SELFPAY | PROVIDERS: PCP Family Medicine; Referring Provider Family Medicine; Visit Provider Family Medicine | DX: Z20.828 Contact with and (suspected) exposure to other viral communicable diseases (principal) | CPT/HCPCS: 87635; U0005; U0003 ==

== ENCOUNTER → 2021-03-10 07:59 | Outpatient (CLI) | payer MEDICARE, OTHER, SELFPAY ==
--- NOTE | 2021-03-10 08:02 | MRI_ITS ---
STUDY: MRI LUMBAR SPINE WITHOUT CONTRAST REASON FOR EXAM: Female, 80 years old. LUMBOSACRAL NEURITIS, SPONDYLOSIS TECHNIQUE: Standardized fat and water weighted pulse sequences were obtained in the sagittal and axial planes. COMPARISON: 08/29/2012 FINDINGS: T12-L1: No change in the small central disc protrusion produces mild spinal stenosis but no neural foraminal stenosis. Normal lumbar lordosis. Mild dextroscoliosis centered at L3. Normal conus medullaris that terminates at the L1/L2. L1-2: No change in the mild bilobed disc protrusion which produces mild spinal stenosis and mild bilateral neural foraminal stenosis. L2-3: Severe left facet hypertrophy and moderate right facet hypertrophy with moderate ligament flavum hypertrophy. No change in the large broad disc osteophyte complex asymmetric to the left which produces severe spinal stenosis with moderate right lateral recess stenosis with abutment of the right L3 nerve root, severe left lateral recess stenosis with effacement of the left L3 nerve root, mild right neural foraminal stenosis and severe left neural foraminal stenosis. L3-4: Severe left facet hypertrophy and moderate facet hypertrophy with moderate ligament flavum hypertrophy. No change in the moderate bilobed disc protrusion which produces moderate spinal stenosis with moderate bilateral lateral recess stenosis with abutment of the L4 nerve roots bilaterally, mild right neural foraminal stenosis and moderate left neural foraminal stenosis with abutment of the left L3 nerve root laterally. L4-5: Moderate bilateral facet hypertrophy and ligament flavum hypertrophy. No change in 2 mm retrolisthesis of L4 on L5 with a moderate broad disc protrusion which produces severe spinal stenosis with moderate bilateral lateral recess stenosis with abutment of the L5 nerve roots bilaterally, severe right neural foraminal stenosis with effacement of the right L4 nerve root laterally and moderate left neural foraminal stenosis. L5-S1: No change in the moderate broad disc protrusion which produces moderate spinal stenosis with moderate bilateral lateral recess stenosis with abutment of the S1 nerve roots bilaterally and moderate bilateral neural foraminal stenosis with abutment of the exiting L5 nerve roots bilaterally. Normal visualized sacral ala. Normal visualized paraspinous soft tissue structures. MRI/Spine Lumbar (Routine) IMPRESSION: No change from 08/29/2012. Electronically Signed: Alec Garcia MD at 10:00 EDT Tel , Service support ,
== END ==
PROVIDERS: PCP Family Medicine; Referring Provider Nurse Practitioner Family; Visit Provider Nurse Practitioner Family
DX: M54.17 Radiculopathy, lumbosacral region (principal); M47.817 Spondylosis without myelopathy or radiculopathy, lumbosacral region
CPT/HCPCS: 72148

== ENCOUNTER → 2021-04-12 12:55 | Outpatient (CLI) | payer MEDICARE, OTHER, SELFPAY ==
--- NOTE | 2021-04-12 13:03 | ECHOCS_ITS ---
Reason For Study: ARRHYTHMIA Procedure This was a 2D Doppler, Color Flow transthoracic echocardiogram. The study was technically difficult. Contrast injection was performed. Exam performed in department. Left Ventricle Normal LV size. Left ventricular systolic function is normal. Stage 1 diastolic dysfunction. The estimated ejection fraction is 60 %. No regional wall motion abnormalities noted. Right Ventricle Normal RV size. Normal systolic function. Atria Normal left atrium. Normal right atrium. Mitral Valve There is mild to moderate mitral annular calcification. Mild (1+) eccentric mitral valve insufficiency. Tricuspid Valve Normal tricuspid valve. Mild (1+) tricuspid valve insufficiency. Pulmonary artery systolic pressure is 50 mmHg. Aortic Valve Trisinus/trileaflet aortic valve. Pulmonic Valve The pulmonic valve is not well visualized. Great Vessels Normal aortic root. The pulmonary artery is normal size. Normal inferior vena cava. Pericardium/Pleural No pericardial effusion. Medication 22 gauge I.V. with prn adaptor inserted into right arm. Diluted definity 3.0ml given slow IV push to enhance endocardial definition. MMode/2D Measurements & Calculations LVIDd: 3.8 cm IVSd: 1.0 cm Ao root diam: 3.1 cm LVIDs: 2.1 cm LVPWd: 0.96 cm RVDd: 3.3 cm FS: 43.8 % LAV(MOD-bp): 45.3 ml LA A4 area: 17.1 cm2 LA dimension(2D): 3.6 cm LAV(MOD-bp) Indexed: 25.3 ml/m2 LAV(MOD-sp2): 45.0 ml LAV(MOD-sp4): 44.5 ml RA A4 area: 13.5 cm2 Doppler Measurements & Calculations MV E max simón: 117.7 cm/sec Lat Peak E' Simón: 6.6 cm/sec Med Peak E' Simón: 5.4 cm/sec MV A max simón: 149.5 cm/sec E/E' lat: 17.9 E/E' med: 22.0 MV E/A: 0.79 MV V2 max: 142.4 cm/sec Ao V2 max: 171.0 cm/sec LV V1 max: 126.5 cm/sec MV max P.1 mmHg Ao max P.7 mmHg LV V1 max P.4 mmHg MV V2 mean: 80.5 cm/sec Ao V2 mean: 110.4 cm/sec MV mean P.0 mmHg Ao mean P.5 mmHg MV V2 VTI: 46.7 cm Ao V2 VTI: 36.0 cm PA V2 max: 67.2 cm/sec TR max simón: 340.4 cm/sec MV P1/2t-pr_phl: 120.7 msec TR max P.3 mmHg ECHO/Echo Complete W/ Contrast Interpretation Summary Normal LV size. Left ventricular systolic function is normal. Stage 1 diastolic dysfunction. Pulmonary artery systolic pressure is 50 mmHg. The estimated ejection fraction is 60 %. Ordering Physician: Champ Pineda Referring Physician: OPAL ANN Performed By: Greer Reid, RDCS, RVT
--- NOTE | 2022-02-11 08:23 | HP.PCM_ITS ---
History and Physical Date of Admission: 03/13/22 Assessment & Plan Assessment/Plan (1) Nausea & vomiting: PLAN: The differential diagnosis for nausea vomiting could be antibiotic associated gastritis secondary to recent antibiotic for UTI and bronchitis.? Nausea vomiting also can be secondary to peptic ulcer disease, erosive esophagitis, bile induced gastritis.? We will evaluate upper GI tract for any structural or chemical abnormalities.? She was explained alternatives, risk, benefits including understanding bleeding, infection, sepsis, perforation, need for emergent .? She will have an ASA of 3. (2) Anemia: PLAN: We will evaluate upper GI tract for any signs of acute or chronic blood lo ss anemia.? If this is negative she may need a colonoscopy for further evaluation. HPI Consult Data Date of Consult: 02/10/22 HPI Narrative Reason for Consultation: anemia HPI Narrative: GABRIELA GAMBOA, is a 81 F who originally presented to the ED?81-year-old woman with history of urinary tract infection. She was placed on cephalexin.? She also has atherosclerotic heart disease, hypertension and hyperlipidemia.? She was? brought to the emergency department because of confusion.? She denies subjective or documented fever.? She denies shaking chills.? She denies vomiting diarrhea.? She denies cardiac respiratory symptoms.? She does complain of back/flank pain.? She does report urgency and frequency.? She has not noted blood in her urine.? Abdomen/Pelvis CT? 02/01/22 10:37 IMPRESSION: ? Severe left hydronephrosis and hydroureter in the proximal and mid segments is seen that demonstrates prominence in comparison to the prior study with wall enhancement, stranding of the perirenal fat planes visualized in the left could represent infection. ? Subtle simple cysts visualized in the right kidney. ? Distended gallbladder but no evidence of acute cholecystitis. ? Fibroid uterus seen. ? Degenerative bone changes seen. ? While in the hospital she was diagnosed with acute bronchitis and was sent home on antibiotic therapy.? She currently is in the transitional care unit on antibiotics for increased white blood cell count, fever and tachycardia.? I was asked to see her due to a worsening anemia. All other 16 review of systems are negative except as pertinent positive mentioned HPI. PFSH Medical History? Abnormal mammogram of left breast Atherosclerotic heart disease of [place] coronary artery without angina pectoris Cancer Chronic back pain Debility Deep vein thrombosis of left lower extremity (04/2020) Dislocation of left ankle joint Essential hypertension Former smoker Hyperlipidemia Hypertension Knee pain, bilateral Neck pain Osteoarthritis Renal calculi Secondary pulmonary arterial hypertension Home Medications isosorbide mononitrate 60 mg tablet,extended release 24 hr 60 mg PO DAILY chest pain 07/09/16 [History Last Taken 04/10/20] amlodipine 10 mg tablet 10 mg PO DAILY blood pressure 12/10/16 [History Last Taken 04/10/20] benazepril 40 mg tablet 40 mg PO DAILY blood pressure 12/10/16 [History Last Taken 04/29/18] simvastatin 20 mg tablet 20 mg PO QHS cholesterol 12/10/16 [History Last Taken 04/09/20] aspirin 81 mg tablet,delayed release 81 mg PO QHS heart 04/10/20 [History Last Taken 04/10/20] calcium carbonate 500 mg calcium (1,250 mg) tablet (Calcium 500) 1,200 mg PO BID Supplement 08/25/20 [History Last Taken Unknown] hydrocodone-acetaminophen 5-325mg 5mg-325mg 1 - 2 tab PO BID PRN Pain 02/13/21 [History Last Taken Unknown] magnesium oxide 500 mg tablet 500 mg PO DAILY supplement 03/31/21 [History Last Taken Unknown] zinc gluconate 50 mg tablet 50 mg PO DAILY Health maintenence 03/31/21 [History Last Taken Unknown] omeprazole 20 mg capsule,delayed release 20 mg PO BID gerd 06/22/21 [History Last Taken Unknown] baclofen 10 mg tablet 5 - 10 mg PO BID PRN spasms 12/28/21 [History Last Taken Unknown] albuterol sulfate 90 mcg/actuation aerosol inhaler (Ventolin HFA) 1 - 2 puff inhalation Q4H PRN PRN Wheezing ##1 02/04/22 [Rx Last Taken Unknown] ondansetron 4 mg disintegrating tablet 8 mg PO Q8H PRN PRN Nausea #20 tabs 02/04/22 [Rx Last Taken Unknown] furosemide 40 mg tablet (Lasix) 40 mg PO DAILY PRN swelling 02/09/22 [History Last Taken Unknown] metoprolol succinate 50 mg tablet,extended release 24 hr (Toprol XL) 50 mg PO BID BP 02/09/22 [History Last Taken Unknown] potassium chloride 20 mEq tablet,extended release 20 meq PO DAILY Hypokalemia 02/09/22 [History Last Taken Unknown] Allergy/AdvReac Type Severity Reaction Status Date / Time No Known Allergies Allergy ? ? Verified 02/09/22 08:08 Family History? Grandmother Breast cancer Surgical History? H/O parathyroidectomy (2011) History of ankle surgery History of coronary artery stent placement (09/09/03) History of herniorrhaphy History of open reduction and internal fixation (ORIF) procedure (03/2020) Social History? household members:? none housing:? condominium current occupational status:? retired pets and animals:? Yes (dog) Smoking Status:? Former smoker alcohol intake:? current ROS Constitutional Constitutional: Reports fever(s), poor appetite and weakness; Denies chills or weight gain ENT HEENT: Denies headache(s), nasal congestion or nasal discharge Cardiovascular Cardiovascular: Denies chest pain or palpitations Respiratory/Chest Respiratory/Chest: Denies cough, excessive phlegm production or shortness of breath with exertion Gastrointestinal Gastrointestinal: Reports constipation, nausea and vomiting; Denies abdominal pain Genitourinary Genitourinary: Denies dysuria Musculoskeletal Musculoskeletal: Denies joint pain or joint swelling Integumentary Integumentary: Denies rash or wounds Neurologic Neurologic: Denies focal weakness, numbness or tingling Psychiatric Psychiatric: Denies anxiety, auditory hallucinations, depression, homicidal ideation or suicidal ideation Physical Exam Const alert General Appearance: cooperative HEENT normocephalic Eyes PERRL and EOMs intact bilaterally Neck supple, no JVD and no carotid bruits Resp normal respiratory effort, normal air movement and clear to auscultation bilaterally Cardio regular rate and regular rhythm GI normal to inspection, nondistended, normoactive bowel sounds, non-tender and non-distended Extremity normal capillary refill General Extremity: Negative for edema Skin no rashes or lesions noted General Skin Exam: no breakdown Psych affect normal Appearance: appropriate Lab / Micro Data Result Diagrams: 02/11/22 05:29? 02/10/22 05:15? Labs: Laboratory Results - last 24 hr 02/10/22 18:08: ESR 96 H 02/10/22 18:08: C-React Prot Ext Range 176.00 H 02/11/22 05:29: WBC 11.4 H,?RBC 3.29 L,?Hgb 9.1 L,?Hct 28.2 L, MCV 85.7, MCH 27.7, MCHC 32.3,?RDW Std Deviation 51.9 H,?RDW Coeff of Feliciano 16.5 H,?Plt Count 479 H, MPV 9.3, Immature Gran % (Auto) 0.600,?Neut % (Auto) 83.3 H,?Lymph % (Auto) 6.5 L, [place] % (Auto) 8.7, Eos % (Auto) 0.6, Baso % (Auto) 0.3,?Absolute Neuts (auto) 9.5 H,?Absolute Lymphs (auto) 0.74 L, Nucleated RBC % 0 Micro: Microbiology 02/10/22 17:55 ? Stool ? Stool Occult Blood (MILLI) - Final ? Occult Blood Positive I have re-examined the patient. There are no clinical changes since date of exam.
== END ==
PROVIDERS: PCP Family Medicine; Referring Provider Internal Medicine Cardiovascular Disease; Visit Provider Internal Medicine Cardiovascular Disease
DX: R06.00 Dyspnea, unspecified (principal); I25.10 Atherosclerotic heart disease of native coronary artery without angina pectoris
CPT/HCPCS: 93225; 93226; 93306; Q9957; A4216; C8929; J3490

== ENCOUNTER 2021-04-22 07:31 | Emergency (ER) | payer MEDICARE, OTHER, SELFPAY ==
[2021-04-22 07:32] VITALS: BP 146/92; PULSE 135; RESP 16; TEMP 36.5; O2SAT 100; BMI 30.2
--- NOTE | 2021-04-22 07:52 | RAD_ITS ---
STUDY: X-RAY CHEST REASON FOR EXAM: Female, 80 years old. Palpitations TECHNIQUE: Single AP portable view of the chest. COMPARISON: Comparison is made with prior study dated 04/07/2020. FINDINGS: EKG electrodes are seen. There is hyperinflation of the lungs consistent with chronic obstructive lung disease (COPD). There is no demonstrated pleural abnormality. Normal size heart. Normal mediastinum and brendan. Normal visualized pulmonary arteries. There is atherosclerotic tortuosity of the aortic arch and descending thoracic aorta. There are diffuse degenerative changes of the visualized thoracic spine. Normal visualized ribs, clavicles, and shoulders. There is no demonstrated abnormality of the visualized soft tissue structures of the upper abdomen. RAD/Chest 1 View (Portable) IMPRESSION: Hyperinflation. No acute abnormality is seen. Electronically Signed: Rahul Perez MD at 8:18 EST , Service support ,
--- NOTE | 2021-04-22 07:53 | EDS_ITS ---
HPI History of Present Illness Chief Complaint: Palpitations Informant: patient Onset/Context/Timing Onset: Days (3) Context: Sudden Onset Timing: Continuous Quality: Racing Location: Chest Worsened by: Stress Relieved by: Nothing Narrative Narrative: Patient presents with palpitations that have been constant for the past 3 days. Patient states it began rather suddenly. Patient states she feels like her heart is racing. Patient states she was recently started on me thotrexate for arthritis. Patient states her symptoms started after taking this. Patient states she saw her pain management doctor yesterday who told her to stop the methotrexate. Patient states she still feels like her heart is racing today. Patient denies any shortness of breath or cough. Patient denies any chest pain. Patient states her symptoms are worse with stress. Patient states nothing makes her symptoms any better. [facility] Medical History Abnormal mammogram of left breast Atherosclerotic heart disease of [place] coronary artery without angina pectoris Chronic back pain Debility Deep vein thrombosis of left lower extremity (04/2020) Dislocation of left ankle joint Essential hypertension Hyperlipidemia Knee pain, bilateral Neck pain Osteoarthritis Renal calculi Secondary pulmonary arterial hypertension Home Medications isosorbide mononitrate 60 mg PO DAILY 07/09/16 [History Last Taken 04/10/20] amlodipine 10 mg PO DAILY 12/10/16 [History Last Taken 04/10/20] benazepril 40 mg PO DAILY 12/10/16 [History Last Taken 04/29/18] simvastatin 20 mg PO QHS 12/10/16 [History Last Taken 04/09/20] baclofen 5 - 10 mg PO BID 08/04/17 [History Last Taken 04/09/20] aspirin 81 mg PO DAILY 04/10/20 [History Last Taken 04/10/20] calcium carbonate 500 mg calcium (1,250 mg) tablet 500 mg PO BID 08/25/20 [History Last Taken Unknown] hydrocodone-acetaminophen 1 tab PO BID PRN 02/13/21 [History Last Taken Unknown] vit C-s.esetgg-gktigu-koydb sd [[place]za] 1 cap PO DAILY 02/13/21 [History Last Taken Unknown] cyanocobalamin (vitamin B-12) 2,500 mcg tablet 2,500 mcg PO DAILY 03/31/21 [History Last Taken Unknown] magnesium oxide 500 mg tablet 500 mg PO DAILY 03/31/21 [History Last Taken Unknown] metoprolol succinate 50 mg tablet,extended release 24 hr 50 mg PO DAILY #90 tab 03/31/21 [Rx Last Taken Unknown] zinc gluconate 50 mg tablet 50 mg PO DAILY 03/31/21 [History Last Taken Unknown] furosemide 40 mg tablet 40 mg PO DAILY #90 tab 04/13/21 [Rx Last Taken Unknown] Allergy/AdvReac Type Severity Reaction Status Date / Time No Known Allergies Allergy Verified 04/22/21 07:34 Family History Grandmother Breast cancer Surgical History H/O parathyroidectomy (2011) History of ankle surgery History of coronary artery stent placement (09/09/03) History of herniorrhaphy History of open reduction and internal fixation (ORIF) procedure (03/2020) Social History Smoking Status: Former smoker alcohol intake: current ROS ROS ED Constitutional Constitutional ED: Denies chills or fever(s) Eyes Eyes: Denies blurry vision or change in vision ENT ENT ED: Denies rhinorrhea or sore throat Cardiovascular Cardiovascular: Reports palpitations and racing heartbeat; Denies chest pain Respiratory/Chest Respiratory/Chest: Denies cough or dyspnea Gastrointestinal Gastrointestinal: Denies nausea or vomiting Genitourinary Genitourinary ED: Denies dysuria or hematuria Musculoskeletal Musculoskeletal: Reports back pain; Denies neck pain Integumentary Denies abscess or rash Neurologic Neurologic: Denies headache(s) or weakness Allergic/Immunologic Allergic/Immunologic ED: Denies mouth swelling or urticaria EXAM Physical Exam Const Vital Signs: 04/22/21 07:32 04/22/21 07:57 04/22/21 10:14 Temperature 97.7 F L Temperature Source Temporal Pulse Rate 135 H 77 Respiratory Rate 16 16 Respiratory Effort Normal Non-Labored Blood Pressure 146/92 H 100/73 Blood Pressure Mean 110 82 Pulse Ox 100 97 Oxygen Delivery Method Room Air Room Air 04/22/21 12:41 Temperature Temperature Source Pulse Rate 94 Respiratory Rate 15 Respiratory Effort Blood Pressure 156/74 H Blood Pressure Mean 101 Pulse Ox 98 Oxygen Delivery Method Room Air Positive well nourished and well developed General Appearance ED: well developed HEENT Reports moist mucous membranes Neck supple and no JVD Resp normal respiratory effort and clear to auscultation bilaterally Cardio regular rhythm and no murmurs Rate: tachycardic GI normal to inspection, nondistended, normoactive bowel sounds and non-tender Palpation: soft Extremity normal to inspection General Extremety ED: Negative for edema or tenderness General Extremity: Negative for edema Neuro oriented x3, CN's II-XII intact bilaterally and no sensory deficits noted Sensorium / Orientation: alert Motor Exam: strength 5/5 throughout Psych mental status grossly normal Skin no rashes or lesions noted MDM MDM MDM Narrative Medical decision making narrative: EKG was obtained. On my interpretation, shows a sinus tachycardia with a rate of 122. There is an old anterior infarct. There are no acute ST or T wave changes. DE interval, QRS interval, and QTc intervals are normal. [place] is normal. This was unchanged compared to previous EKG. Portable 1 view chest x-ray was obtained. On my interpretation, lung gibson are clear. There is normal cardiac silhouette. Bony thorax is normal. There is no acute process noted. Radiologist also interpreted the x-ray and agrees. CBC was within normal limits. Comprehensive metabolic profile showed a slightly elevated creatinine 1.30 and a BUN of 34. These are consistent with prior results. Urinalysis does not show any evidence of urinary tract infection. Initial high-sensitivity troponin was normal at 12. 2-hour repeat high-sensitivity troponin was normal at 16. Patient was advised of her findings. Patient's heart rate improved to the 70s on reevaluation. Patient feels better. Patient wants to go home. Patient was instructed to follow-up with her primary care physician in 5 to 7 days. Patient understood and was agreeable with the plan. All questions were answered. Lab Data Attestation: I reviewed the patient's lab results. Labs: Laboratory Results - last 24 hr 04/22/21 04/22/21 04/22/21 07:52 07:52 08:50 WBC 10.9 RBC 4.67 Hgb 13.9 Hct 42.5 MCV 91.0 MCH 29.8 MCHC 32.7 RDW Std Deviation 46.1 H RDW Coeff of [place] 13.6 Plt Count 269 MPV 9.6 Immature Gran % (Auto) 0.600 Neut % (Auto) 67.5 Lymph % (Auto) 23.1 [place] % (Auto) 7.6 Eos % (Auto) 0.8 Baso % (Auto) 0.4 Absolute Neuts (auto) 7.3 Absolute Lymphs (auto) 2.51 Nucleated RBC % 0 Sodium 140 Potassium 3.5 Chloride 105 Carbon Dioxide 25.0 Anion Gap 10 BUN 34 H Creatinine 1.30 H Estim Creat Clear Calc 27.30 Est GFR (MDRD) Af Amer 51 L Est GFR (MDRD) Non-Af 42 L BUN/Creatinine Ratio 26.2 H Glucose 138 H Calcium 9.4 Total Bilirubin 0.40 AST 15 ALT 21 Alkaline Phosphatase 56 Troponin I High Sens 12 Total Protein 7.4 Albumin 3.4 Globulin 4.0 Albumin/Globulin Ratio 0.8 L Urine Color Yellow Urine Clarity Clear Urine pH 7.0 Ur Specific [place] 1.010 Urine Protein Negative Urine Glucose (UA) Normal Urine Ketones Negative Urine Occult Blood Negative Urine Nitrite Negative Urine Bilirubin Negative Urine Urobilinogen Normal Ur Leukocyte Esterase 25 H Urine RBC 0 SEEN Urine WBC 0 SEEN Ur Squamous Epith Cells 0 SEEN Urine Bacteria 0 SEEN Urine Mucus 0 SEEN 04/22/21 10:11 WBC RBC Hgb Hct MCV MCH MCHC RDW Std Deviation RDW Coeff of [place] Plt Count MPV Immature Gran % (Auto) Neut % (Auto) Lymph % (Auto) [place] % (Auto) Eos % (Auto) Baso % (Auto) Absolute Neuts (auto) Absolute Lymphs (auto) Nucleated RBC % Sodium Potassium Chloride Carbon Dioxide Anion Gap BUN Creatinine Estim Creat Clear Calc Est GFR (MDRD) Af Amer Est GFR (MDRD) Non-Af BUN/Creatinine Ratio Glucose Calcium Total Bilirubin AST ALT Alkaline Phosphatase Troponin I High Sens 16 Total Protein Albumin Globulin Albumin/Globulin Ratio Urine Color Urine Clarity Urine pH Ur Specific [place] Urine Protein Urine Glucose (UA) Urine Ketones Urine Occult Blood Urine Nitrite Urine Bilirubin Urine Urobilinogen Ur Leukocyte Esterase Urine RBC Urine WBC Ur Squamous Epith Cells Urine Bacteria Urine Mucus Radiography Chest X-Ray - ED: 1 View, Read by ED Physician, Read by Radiologist and Normal Diagnostic Testing: Clinical Impression(s) from Imaging Studies Chest X-Ray 04/22/21 07:52 IMPRESSION: Hyperinflation. No acute abnormality is seen. Electronically Signed: Rahul Perez MD at 8:18 EST , Service support , EKG Initial EKG: Attestation: I personally reviewed and interpreted this EKG as follows: Interpretation: No Acute Injury Pattern and Sinus Tachycardia (122) Prior EKG tracings: available for review Prior: Unchanged (01/20/2021) Discharge Plan Triage Chief Complaint: Palpitations ED Provider: Jonathan Britton Dx/Rx/DC Orders Clinical Impression: Sinus tachycardia Instructions: ED Palpitations Prescriptions: No Action calcium carbonate [Calcium 500] 500 mg calcium (1,250 mg) tablet 500 mg PO BID RF: 0 magnesium oxide 500 mg tablet 500 mg PO DAILY RF: 0 zinc gluconate 50 mg tablet 50 mg PO DAILY RF: 0 cyanocobalamin (vitamin B-12) 2,500 mcg tablet 2,500 mcg PO DAILY RF: 0 metoprolol succinate [Toprol XL] 50 mg tablet extended release 24 hr 50 mg PO DAILY Qty: 90 RF: 3 isosorbide mononitrate 60 MG tablet extended release 24 hr 60 mg PO DAILY RF: 0 amlodipine 10 MG tablet 10 mg PO DAILY RF: 0 simvastatin 20 MG tablet 20 mg PO QHS RF: 0 benazepril 40 MG tablet 40 mg PO DAILY RF: 0 baclofen 10 MG tablet 5 - 10 mg PO BID RF: 0 aspirin 81 MG tablet,delayed release (DR/EC) 81 mg PO DAILY RF: 0 hydrocodone-acetaminophen 5-325 mg tablet 1 tab PO BID PRN (Reason: Pain) RF: 0 [place] [id number] mg Capsule 1 cap PO DAILY RF: 0 furosemide [Lasix] 40 mg tablet 40 mg PO DAILY Qty: 90 RF: 3 Primary Care Provider: Stephanie Partida Referrals: Stephanie Partida DO [Primary Care Provider] - 5-7 Days Disposition Disposition: Home, Self Care
--- NOTE | 2021-04-22 07:53 | EKG12_ITS ---
Test Reason : PALP Blood Pressure : / mmHG Vent. Rate : 122 BPM Atrial Rate : 122 BPM P-R Int : 146 ms QRS Dur : 072 ms QT Int : 312 ms P-R-T Axes : 069 044 035 degrees QTc Int : 444 ms Sinus tachycardia Anterior infarct , age undetermined Abnormal ECG Confirmed by SONIA LEA, DIMITRI ([id number]), fan mail editor ADEN HANNON ([id number]) on 04/23/2021 1:22:16 PM Referred By: IRVIN Confirmed By:DIMITRI SCOTT MD
[2021-04-22 08:04] LABS: Absolute Lymphocyte Count 2.51 X10^3/uL (0.83-4.51); Absolute Neutrophil Count 7.3 X10^3/uL (2.0-7.7); Basophil# 0.04 X10^3/uL; Basophil% 0.4 % (0-1); Eosinophil# 0.09 X10^3/uL; Eosinophils% 0.8 % (0-5); Hematocrit 42.5 % (37-47); Hemoglobin 13.9 g/dL (12.0-15.0); Lymphocyte # 2.51 X10^3/ul (0.83-4.51); Lymphocyte % 23.1 % (19-41); Mean Corp Hgb Conc 32.7 g/dL (32-36); Mean Corpuscular Hgb 29.8 pg (27.0-32.0); Mean Platelet Vol. 9.6 fl (6.2-12.0); Monocyte# 0.82 X10^3/uL; Monocyte% 7.6 % (0-10); NRBC Flagged by Analyzer 0 % (0-5); Neutrophil # 7.33 X10^3/uL (2.7-7.7); Neutrophil % 67.5 % (47-70); Platelet Count 269 K/mm3 (150-450); RBC Distribution Width CV 13.6 % (11.6-14.6); RBC Distribution Width SD 46.1 fl (35.1-43.9); Red Blood Count 4.67 M/mm3 (4.2-5.4); White Blood Count 10.9 K/mm3 (4.4-11.0)
[2021-04-22 08:34] LABS: ALB/GLOB Ratio 0.8 RATIO (0.9-2.4); AST(SGOT) 15 U/L (15-37); Alanine Aminotransfer ALT/SGPT 21 U/L (13-56); Albumin, Serum 3.4 g/dL (3.2-5.0); Alkaline Phosphatase 56 U/L (45-117); Anion Gap 10 (5-15); BUN 34 mg/dL (7-18); BUN/Creat Ratio 26.2 RATIO (10-20); Calcium,Total 9.4 mg/dL (8.5-10.1); Chloride 105 mmol/L (98-107); EST Glomerular Filtration Rate 42 mL/min (>60); Est Glom Filt Rate - Afr Amer 51 mL/min (>60); Glucose 138 mg/dL (74-106); Potassium 3.5 mmol/L (3.5-5.1); Protein, Total 7.4 g/dL (6.4-8.2); Sodium Level 140 mmol/L (136-145); Troponin-I HS 12 pg/mL (3.0-54.0)
[2021-04-22 08:55] LABS: Bacteria 0 SEEN /hpf (None Seen); Mucous, Urine 0 SEEN /hpf (<or=2+); Red Blood Cells-Urine 0 SEEN /hpf (0-5); Squamous Epithelial Cells - UA 0 SEEN /hpf (5-10); White Blood Cells 0 SEEN /hpf (0-5)
[2021-04-22 08:58] LABS: Color, Urine Yellow (Yellow); Glucose, Dipstick Normal (Normal); Ketone-Dipstick Negative (Negative); Leukocyte Esterase-Dipstick 25 /ul (Negative); Nitrite-Dipstick Negative (Negative); Occult Blood-Urine Negative /ul (Negative); Protein-Dipstick Negative (Negative); Urine Bilirubin Dipstick Negative (Negative); Urine Clarity Clear (Clear); Urine Urobilinogen Normal (Normal)
[2021-04-22 10:14] VITALS: BP 100/73; PULSE 77; RESP 16; O2SAT 97
[2021-04-22 10:40] LABS: Troponin-I HS 16 pg/mL (3.0-54.0)
[2021-04-22 12:41] VITALS: BP 156/74; PULSE 94; RESP 15; O2SAT 98
[2021-04-22 13:19] VITALS: BP 126/55; PULSE 82; RESP 19; O2SAT 98
== END 2021-04-22 13:19 | disposition home or self-care (01) ==
PROVIDERS: Emergency Provider Emergency Medicine; PCP Family Medicine
DX: R00.0 Tachycardia, unspecified (principal); I25.10 Atherosclerotic heart disease of native coronary artery without angina pectoris; E78.5 Hyperlipidemia, unspecified; I10 Essential (primary) hypertension; I27.21 Secondary pulmonary arterial hypertension; M19.90 Unspecified osteoarthritis, unspecified site; Z79.82 Long term (current) use of aspirin; Z87.891 Personal history of nicotine dependence; Z86.718 Personal history of other venous thrombosis and embolism
CPT/HCPCS: 71045; 80053; 81001; 84484; 85025; 93005; 99284; J7040; A4216

== ENCOUNTER → 2021-05-03 13:07 | Outpatient (CLI) | payer MEDICARE, OTHER, SELFPAY ==
[2021-05-03 15:33] LABS: Anion Gap 9 (5-15); BUN 26 mg/dL (7-18); BUN/Creat Ratio 20.5 RATIO (10-20); Calcium,Total 9.6 mg/dL (8.5-10.1); Chloride 106 mmol/L (98-107); Creatinine, Serum 1.27 mg/dL (0.55-1.02); EST Glomerular Filtration Rate 43 mL/min (>60); Est Glom Filt Rate - Afr Amer 52 mL/min (>60); Glucose 136 mg/dL (74-106); Magnesium 2.2 mg/dL (1.6-2.6); Potassium 3.7 mmol/L (3.5-5.1); Sodium Level 143 mmol/L (136-145)
== END ==
PROVIDERS: PCP Family Medicine; Referring Provider Internal Medicine Cardiovascular Disease; Visit Provider Internal Medicine Cardiovascular Disease
DX: R06.00 Dyspnea, unspecified (principal); I25.10 Atherosclerotic heart disease of native coronary artery without angina pectoris; Z95.5 Presence of coronary angioplasty implant and graft; I27.21 Secondary pulmonary arterial hypertension; I10 Essential (primary) hypertension; E78.5 Hyperlipidemia, unspecified
CPT/HCPCS: 36415; 80048; 83735

== ENCOUNTER 2021-05-18 14:13 | Outpatient (CLI) | payer MEDICARE, OTHER, SELFPAY | END 2021-05-18 23:59 | disposition short-term general hospital (02) | LOC: LABSPEC 14:16 | PROVIDERS: PCP Family Medicine; Visit Provider Family Medicine | DX: Z20.828 Contact with and (suspected) exposure to other viral communicable diseases (principal) | CPT/HCPCS: 87635; U0003; U0005 ==

== ENCOUNTER 2021-06-09 20:12 | Outpatient (CLI) | payer MEDICARE, OTHER, SELFPAY | END 2021-06-09 23:59 | disposition short-term general hospital (02) | PROVIDERS: PCP Family Medicine; Visit Provider Family Medicine | DX: G47.10 Hypersomnia, unspecified (principal) | CPT/HCPCS: 95810 ==

== ENCOUNTER 2021-08-20 10:25 | Outpatient (CLI) | payer MEDICARE, OTHER, SELFPAY ==
--- NOTE | 2021-08-20 10:58 | BI_ITS ---
MAMMOGRAPHY - BILATERAL SCREENING REASON FOR EXAM: Female, 81 years old. Routine annual screening examination. PERTINENT HISTORY: Grandmother with breast cancer. Prior left stereotactic breast biopsy. TECHNIQUE: Digital bilateral breast luciana (3D mammographic acquisition) in the CC and MLO projections. 2-D mediolateral oblique (MLO) and craniocaudad (CC) views of both breasts were obtained. CAD: Full Field Digital Mammography with Computer Added Detection was performed. COMPARISON: Comparison is made with prior study dated 08/19/2020 and 07/18/2019. FINDINGS: Breast Composition: The breasts are heterogeneously dense, which may obscure small masses. There are no dominant masses or suspicious calcifications. The tissue clip marker is seen in the upper central portion of the right breast. Small stable bilateral axillary lymph nodes. No other significant abnormalities are identified. There has been no significant change since the prior study. BI/SCRN MAMM (CAD)W/LUCIANA BILAT IMPRESSION: Stable bilateral screening mammogram. Yearly follow-up mammogram recommended. (A) ASSESSMENT CATEGORY: BIRADS Category 2: Benign. A letter regarding these results will be sent to the patient by the facility within 30 days. Approximately 10% of breast cancers are not detected by mammography. A normal mammogram should not delay biopsy of a clinically suspicious abnormality. [id number] Electronically Signed: Rahul Perez MD at 13:29 EDT ,
== END 2021-08-20 23:59 | disposition home or self-care (01) ==
LOC: OPBI 10:56
PROVIDERS: PCP Family Medicine; Visit Provider Family Medicine
DX: Z12.31 Encounter for screening mammogram for malignant neoplasm of breast (principal); Z80.3 Family history of malignant neoplasm of breast
CPT/HCPCS: 77063; 77067

== ENCOUNTER → 2021-09-14 | Outpatient (CLI) | payer MEDICARE, OTHER, SELFPAY ==
--- NOTE | 2021-09-14 09:48 | RAD_ITS ---
STUDY: X-RAY - ABDOMEN/PELVIS REASON FOR EXAM: Female, 81 years old. ABDOMEN PAIN, DIARRHEA TECHNIQUE: Single AP view of the abdomen / pelvis. COMPARISON: None. FINDINGS: Normal visualized lung bases. There is an unremarkable bowel gas pattern. There is no demonstrated free abdominal air. The visualized liver, spleen and kidneys are grossly normal in size and morphology. Normal soft tissue structures. There are diffuse degenerative changes of the visualized lumbar spine. Dextroscoliosis. RAD/Abdomen Single View IMPRESSION: No acute abnormality is seen. Electronically Signed: Rahul Perez MD at 14:56 EDT ,
== END | disposition home or self-care (01) ==
LOC: MTRAD 09:43
PROVIDERS: PCP Family Medicine; Referring Provider Family Medicine; Visit Provider Family Medicine
DX: R19.7 Diarrhea, unspecified (principal); R10.9 Unspecified abdominal pain
CPT/HCPCS: 74018

== ENCOUNTER → 2022-01-13 | Outpatient (CLI) | payer MEDICARE, OTHER, SELFPAY ==
--- NOTE | 2022-01-13 15:06 | RAD_ITS ---
STUDY: X-RAY - THORACIC SPINE REASON FOR EXAM: Female, 81 years old. BACK PAIN TECHNIQUE: 2 view(s) of the thoracic spine were obtained. COMPARISON: None. FINDINGS: There is a mild levoscoliosis. There is severe anterior osteophyte formation throughout the thoracic spine. There is severe loss of disc space height throughout the thoracic spine more moderate at the T11-T12 and T8-11 levels. Mild wedge deformities T6 and T7 age indeterminate. RAD/Thoracic Spine 3 Views IMPRESSION: Levoscoliosis mild. Severe degenerative disc disease. Mild wedge deformities T6 and T7 age-indeterminate. Electronically Signed: Pavan Neville MD, YODIT at 17:02 EDT ,
== END | disposition home or self-care (01) ==
LOC: MTRAD 15:05
PROVIDERS: PCP Family Medicine; Referring Provider Nurse Practitioner Family; Visit Provider Nurse Practitioner Family
DX: M54.14 Radiculopathy, thoracic region (principal); M47.814 Spondylosis without myelopathy or radiculopathy, thoracic region
CPT/HCPCS: 72072

== ENCOUNTER → 2022-01-30 | Outpatient (CLI) | payer MEDICARE, OTHER, SELFPAY ==
[2022-01-30 14:22] LABS: Mucous, Urine 0 SEEN /hpf (<or=2+); Red Blood Cells-Urine 0 SEEN /hpf (0-5); Squamous Epithelial Cells - UA 0 SEEN /hpf (5-10)
[2022-01-30 14:29] LABS: Color, Urine Yellow (Yellow); Glucose, Dipstick Normal (Normal); Ketone-Dipstick Negative (Negative); Leukocyte Esterase-Dipstick 500 /ul (Negative); Nitrite-Dipstick Positive (Negative); Occult Blood-Urine 150 /ul (Negative); Protein-Dipstick 30 mg/dl (Negative); Urine Bilirubin Dipstick Negative (Negative); Urine Clarity Cloudy (Clear); Urine Urobilinogen Normal (Normal)
[2022-01-30 14:36] LABS: Bacteria 1+ /hpf (None Seen); White Blood Cells >100 SEEN /hpf (0-5)
== END | disposition home or self-care (01) ==
PROVIDERS: PCP Family Medicine; Visit Provider Physician Assistant
DX: R30.9 Painful micturition, unspecified (principal)
CPT/HCPCS: 81001; 87086; 87088

== ENCOUNTER 2022-01-31 20:04 | Inpatient (IN) | payer MEDICARE, OTHER, SELFPAY ==
[2022-01-31 20:05] VITALS: BP 89/74; PULSE 97; RESP 15; TEMP 35.9; O2SAT 97; BMI 30.2
[2022-01-31 20:09] VITALS: BP 89/74; PULSE 97; RESP 15; TEMP 35.9; O2SAT 97
--- NOTE | 2022-01-31 22:21 | EKG12_ITS ---
Test Reason : DYSRHYTHMIA Blood Pressure : / mmHG Vent. Rate : 085 BPM Atrial Rate : 085 BPM P-R Int : 152 ms QRS Dur : 070 ms QT Int : 372 ms P-R-T Axes : 074 047 034 degrees QTc Int : 442 ms Normal sinus rhythm Normal ECG Confirmed by SONIA LEA, DIMITRI ([id number]), editorial clerk ADEN HANNON ([id number]) on 02/02/2022 11:02:45 AM Referred By: JESE Confirmed By:DIMITRI SCOTT MD
--- NOTE | 2022-01-31 22:26 | EDS_ITS ---
HPI History of Present Illness Chief Complaint: Confusion Detail of Chief Complaint: Confusion, diagnosed with UTI yesterday Informant: patient and friend Onset/Context/Timing Onset: Today (Confusion noted today) and Yesterday (Diagnosed with urinary tract yesterday) Context: Sudden Onset Timing: Intermittent Quality: Not her normal self Location: and [employer] Current Severity: Mild Maximum Severity: Mild Worsened by: Nothing specific Relieved by: Nothing Associated Symptoms Associated Symptoms: Lightheadedness, confusion and urinary symptoms Narrative Narrative: Patient is an 81-year-old woman with history of urinary tract infection diagnosed yesterday placed on cephalexin, atherosclerotic heart disease, hypertension and hyperlipidemia who was brought to the emergency department because of confusion. She denies subjective or documented fever. She denies shaking chills. She denies vomiting diarrhea. She denies cardiac respiratory symptoms. She does complain of back/flank pain. She does report urgency and frequency. She has not noted blood in her urine. She has not had a urinary tract infection in years. Prior similar symptoms: Yes Recent Illness/Hospitalization: Yes [facility], [facility] Medical History (Updated 01/31/22 @ 23:[address] Mike Walker MD) Abnormal mammogram of left breast Atherosclerotic heart disease of [place] coronary artery without angina pectoris Cancer Chronic back pain Debility Deep vein thrombosis of left lower extremity (04/2020) Dislocation of left ankle joint Essential hypertension Former smoker Hyperlipidemia Hypertension Knee pain, bilateral Neck pain Osteoarthritis Renal calculi Secondary pulmonary arterial hypertension Home Medications isosorbide mononitrate 60 mg tablet,extended release 24 hr 60 mg PO DAILY chest pain 07/09/16 [History Last Taken 04/10/20] amlodipine 10 mg tablet 10 mg PO DAILY blood pressure 12/10/16 [History Last Taken 04/10/20] benazepril 40 mg tablet 40 mg PO DAILY blood pressure 12/10/16 [History Last Taken 04/29/18] simvastatin 20 mg tablet 20 mg PO QHS cholesterol 12/10/16 [History Last Taken 04/09/20] aspirin 81 mg tablet,delayed release 81 mg PO QHS heart 04/10/20 [History Last Taken 04/10/20] calcium carbonate 500 mg calcium (1,250 mg) tablet (Calcium 500) 500 mg PO BID 08/25/20 [History Last Taken Unknown] hydrocodone-acetaminophen 5-325mg 5mg-325mg 1 tab PO BID PRN Pain 02/13/21 [ History Last Taken Unknown] magnesium oxide 500 mg tablet 500 mg PO DAILY 03/31/21 [History Last Taken Unknown] zinc gluconate 50 mg tablet 50 mg PO DAILY 03/31/21 [History Last Taken Unknown] furosemide 40 mg tablet (Lasix) 40 mg PO DAILY #90 tabs 04/13/21 [Rx Last Taken Unknown] metoprolol succinate 50 mg tablet,extended release 24 hr (Toprol XL) 50 mg PO BID #180 tabs 06/22/21 [Rx Last Taken Unknown] omeprazole 20 mg capsule,delayed release 20 mg PO BID 06/22/21 [History Last Taken Unknown] baclofen 10 mg tablet 5 - 10 mg PO BID PRN spasms 12/28/21 [History Last Taken Unknown] cephalexin 500 mg capsule 500 mg PO BID #14 caps 01/30/22 [Rx Last Taken Unknown] Allergy/AdvReac Type Severity Reaction Status Date / Time No Known Allergies Allergy Verified 01/31/22 20:09 Family History Grandmother Breast cancer Surgical History H/O parathyroidectomy (2011) History of ankle surgery History of coronary artery stent placement (09/09/03) History of herniorrhaphy History of open reduction and internal fixation (ORIF) procedure (03/2020) Social History (Updated 01/31/22 @ 22:[address] Mike Walker MD) household members: none Smoking Status: Former smoker alcohol intake: current ROS ROS ED Constitutional Constitutional ED: Denies chills, fever(s), subjective, sweats or weight loss Eyes Eyes: Denies blurry vision, change in vision or diplopia ENT ENT ED: Denies ear pain, rhinorrhea or sore throat Cardiovascular Cardiovascular: Denies chest pain, palpitations or racing heartbeat Respiratory/Chest Respiratory/Chest: Denies cough, dyspnea or dyspnea on exertion Gastrointestinal Gastrointestinal: Denies abdominal pain, nausea or vomiting Genitourinary Genitourinary ED: Reports dysuria and urinary frequency; Denies hematuria Musculoskeletal Musculoskeletal: Reports back pain; Denies arthralgias, myalgias or neck pain Integumentary Denies abscess, Abrasions or rash Neurologic Neurologic: Denies headache(s) Endocrine Endocrinology: Denies cold intolerance or heat intolerance Hematologic/Lymphatic Hematologic/Lymphatic: Denies easy bleeding or easy bruising EXAM Physical Exam Const Vital Signs: 01/31/22 20:05 01/31/22 20:09 01/31/22 22:46 Temperature 96.7 F L 96.7 F L Temperature Source Temporal Temporal Pulse Rate 97 97 Respiratory Rate 15 15 Respiratory Pattern Normal Blood Pressure 89/74 L 89/74 L Blood Pressure Mean 79 79 Pulse Ox 97 97 Oxygen Delivery Method Room Air Room Air 01/31/22 23:00 Temperature Temperature Source Pulse Rate Respiratory Rate Respiratory Pattern Blood Pressure Blood Pressure Mean Pulse Ox 97 Oxygen Delivery Method Room Air Positive well nourished, well developed and obese General Appearance ED: well developed and NAD; Negative for cyanotic, diaphoretic or pallor Nutritional Appearance: obese HEENT Reports dry mucous membranes HEENT Narrative: Atraumatic normocephalic. Ears normal. Nares patent. Uvula midline. No deviation tongue with protrusion. Posterior pharyngeal erythema or exudate. Negative for trauma Mouth ED: Yes dry mucous membranes Mouth: dry mucous membranes Eyes PERRL and EOMs intact bilaterally General Eye ED: Negative for pale conjunctiva or scleral icterus Neck no lymphadenopathy and supple Chest Wall inspection of chest normal and palpation of chest normal Resp normal respiratory effort and clear to auscultation bilaterally Cardio regular rate, regular rhythm, S1 normal heart sound, S2 normal heart sound and no murmurs GI non-distended and no masses; Negative for hepatosplenomegaly Palpation: soft and tender suprapubic; Negative for guarding, splenomegaly, mass or rebound tenderness present Narrative: There is right CVA tenderness noted. Back/Spine General Back: CVA tenderness right Thoracic Spine / Upper Back: Negative for thoracic spinal tenderness Lumbar Spine / Lower Back: Negative for lumbar spinal tenderness Extremity normal to inspection General Extremety ED: Negative for edema or tenderness General Extremity: Negative for edema Neuro oriented x3, CN's II-XII intact bilaterally and no sensory deficits noted Sensorium / Orientation: alert Motor Exam: strength 5/5 throughout Psych mental status grossly normal Skin no rashes or lesions noted, no wounds and skin turgor normal General Skin Exam: Negative for jaundice or pallor Sepsis Attestation Date exam was performed: 01/31/22 Time exam was performed: 22:15 Possible Source of Sepsis: Genitourinary Sepsis Organ Dysfunction Criteria Present: SBP < 90 mmHg or MAP < 65 mmHg and New/Unexplained change in mental status Fluid Resuscitation Fluid resuscitation indicated?: Yes Fluid Resuscitation ordered: Lesser volume fluid bolus ordered (Since patient is elderly will administer a liter. If she remains hypotensive will administer the full 30 cc/kg.) Reason for lesser fluid bolus:: Concern for fluid overload and Other (Patient's pressure responded to the 1 L of normal saline. No additional fluids were given.) MDM MDM MDM Narrative Medical decision making narrative: Patient presents with altered mental status and is hypotensive. She is recent diagnosed UTI. Concern patient has sepsis due to her UTI. Sepsis work-up was initiated. Appropriate antibiotics were started. Patient states she took 1 dose of cephalexin today. Lab Data Attestation: I reviewed the patient's lab results. Lab results narrative: White count is elevated with slight shift. There is no bandemia. Lactate is normal. Electrolyte panel is remarkable for a creatinine of 1.59. We will need to compare to prior. Transaminases and alk phos are normal. Labs: Laboratory Results - last 24 hr 01/31/22 01/31/22 01/31/22 22:37 22:37 22:37 WBC 14.8 H RBC 4.44 Hgb 12.1 Hct 39.1 MCV 88.1 MCH 27.3 MCHC 30.9 L RDW Std Deviation 49.7 H RDW Coeff of [place] 15.4 H Plt Count 242 MPV 9.5 Immature Gran % (Auto) 0.600 Neut % (Auto) 76.6 H Lymph % (Auto) 8.3 L [place] % (Auto) 14.2 H Eos % (Auto) 0.0 Baso % (Auto) 0.3 Absolute Neuts (auto) 11.3 H Absolute Lymphs (auto) 1.23 Nucleated RBC % 0 PT 15.9 H INR 1.3 APTT 48.4 H Sodium 139 Potassium 4.0 Chloride 104 Carbon Dioxide 27.0 Anion Gap 8 BUN 20 H Creatinine 1.59 H Estim Creat Clear Calc 21.95 Est GFR (MDRD) Af Amer 40 L Est GFR (MDRD) Non-Af 33 L BUN/Creatinine Ratio 12.6 Glucose 133 H Lactic Acid Calcium 9.5 Total Bilirubin 1.00 AST 17 ALT 17 Alkaline Phosphatase 57 Total Protein 7.0 Albumin 3.0 L Globulin 4.0 Albumin/Globulin Ratio 0.8 L 01/31/22 22:37 WBC RBC Hgb Hct MCV MCH MCHC RDW Std Deviation RDW Coeff of [place] Plt Count MPV Immature Gran % (Auto) Neut % (Auto) Lymph % (Auto) [place] % (Auto) Eos % (Auto) Baso % (Auto) Absolute Neuts (auto) Absolute Lymphs (auto) Nucleated RBC % PT INR APTT Sodium Potassium Chloride Carbon Dioxide Anion Gap BUN Creatinine Estim Creat Clear Calc Est GFR (MDRD) Af Amer Est GFR (MDRD) Non-Af BUN/Creatinine Ratio Glucose Lactic Acid 1.4 Calcium Total Bilirubin AST ALT Alkaline Phosphatase Total Protein Albumin Globulin Albumin/Globulin Ratio Radiography Chest X-Ray - ED: 1 View and Read by ED Physician (Single view chest x-ray was independently interpreted and reviewed by me at 2322. There are no acute findings. Cardiac silhouette and size unremarkable. Limited inspiratory volume. Osseous structures unremarkable. There is no evidence of infiltrate or effusion.) Diagnostic Testing: Clinical Impression(s) from Imaging Studies Chest X-Ray 01/31/22 23:12 IMPRESSION: No radiographic evidence of acute cardiopulmonary disease. Electronically Signed: Ender Mayen MD at 23:32 EDT , EKG Initial EKG: Attestation: I personally reviewed and interpreted this EKG as follows: Interpretation: Sinus Rhythm (EKG is normal with a ventricular rate 85. WV interval is 152 ms. QS duration 70 ms. QT 172 ms axis is normal.) Critical Care Time Critical Care Time: Yes Critical care time (excluding procedures): 30-74 minutes (31), Including time spent: (History, physical, documentation, review of prior records, interpretation laboratory results initiation of treatment for sepsis), Discussing w/Patient &/or Family/Staff Editor, Discussing w/Consultants and Arranging Admission or Transfer Discharge Plan Dx/Rx/DC Orders Clinical Impression: Infectious encephalopathy, Complicated urinary tract infection, Sepsis, Acute hypotension Disposition Disposition: [facility]
[2022-01-31 22:50] LABS: Absolute Lymphocyte Count 1.23 X10^3/uL (0.83-4.51); Absolute Neutrophil Count 11.3 X10^3/uL (2.0-7.7); Basophil# 0.04 X10^3/uL; Basophil% 0.3 % (0-1); Hematocrit 39.1 % (37-47); Hemoglobin 12.1 g/dL (12.0-15.0); Lymphocyte # 1.23 X10^3/ul (0.83-4.51); Lymphocyte % 8.3 % (19-41); Mean Corp Hgb Conc 30.9 g/dL (32-36); Mean Corpuscular Hgb 27.3 pg (27.0-32.0); Mean Corpuscular Volume 88.1 fL (81-99); Mean Platelet Vol. 9.5 fl (6.2-12.0); Monocyte% 14.2 % (0-10); NRBC Flagged by Analyzer 0 % (0-5); Neutrophil # 11.33 X10^3/uL (2.7-7.7); Neutrophil % 76.6 % (47-70); POSITIVE DIFFERENTIAL YES; Platelet Count 242 K/mm3 (150-450); RBC Distribution Width CV 15.4 % (11.6-14.6); RBC Distribution Width SD 49.7 fl (35.1-43.9); Red Blood Count 4.44 M/mm3 (4.2-5.4); White Blood Count 14.8 K/mm3 (4.4-11.0)
[2022-01-31 23:00] VITALS: O2SAT 97
[2022-01-31 23:09] LABS: ALB/GLOB Ratio 0.8 RATIO (0.9-2.4); AST(SGOT) 17 U/L (15-37); Alanine Aminotransfer ALT/SGPT 17 U/L (13-56); Alkaline Phosphatase 57 U/L (45-117); Anion Gap 8 (5-15); BUN 20 mg/dL (7-18); BUN/Creat Ratio 12.6 RATIO (10-20); Calcium,Total 9.5 mg/dL (8.5-10.1); Chloride 104 mmol/L (98-107); Creatinine, Serum 1.59 mg/dL (0.55-1.02); EST Glomerular Filtration Rate 33 mL/min (>60); Est Glom Filt Rate - Afr Amer 40 mL/min (>60); Estimated Creatinine Clearance 21.95 ml/min; Glucose 133 mg/dL (74-106); Sodium Level 139 mmol/L (136-145)
--- NOTE | 2022-01-31 23:12 | RAD_ITS ---
EXAM: XR CHEST, 1 VIEW CLINICAL INDICATION: sepsis TECHNIQUE: Frontal view of the chest. This report was created using [employer] report generation technology. COMPARISON: 01/21/2021 FINDINGS: LUNGS AND PLEURAL SPACES: Unremarkable. No consolidation or edema. No pneumothorax. No effusion. HEART: Unremarkable. Cardiac silhouette not enlarged. MEDIASTINUM: Central airways and mediastinal contour are unremarkable. BONES/JOINTS: Unremarkable. SOFT TISSUES: Unremarkable. RAD/Chest 1 View (Portable) IMPRESSION: No radiographic evidence of acute cardiopulmonary disease. Electronically Signed: Ender Mayen MD at 23:32 EDT ,
[2022-01-31 23:13] LABS: Differential Indicated SCAN CRITERIA MET
[2022-01-31] MEDS: 0.9% Normal Saline 1,000 ML 999 ML IV (23:13)
[2022-01-31 23:16] LABS: Lactic Acid 1.4 mmol/L (0.4-1.9)
[2022-01-31] MEDS: Ceftriaxone 1 GM/50 ML BAG IV (23:28)
[2022-01-31 23:52] LABS: International Normalized Ratio 1.3; Partial Thromboplast Time 48.4 Seconds (24.1-36.2); Prothrombin Time (Protime)PT. 15.9 SECONDS (11.7-14.9)
[2022-01-31 23:56] LABS: Color, Urine Yellow (Yellow); Glucose, Dipstick Normal (Normal); Ketone-Dipstick 5 mg/dl (Negative); Leukocyte Esterase-Dipstick 500 /ul (Negative); Nitrite-Dipstick Positive (Negative); Occult Blood-Urine 50 /ul (Negative); Protein-Dipstick 100 mg/dl (Negative); Specific Gravity, Urine 1.025 (1.002-1.030); Urine Bilirubin Dipstick 3 mg/dL (Negative); Urine Clarity Sl. Cloudy (Clear); Urine Urobilinogen 1 mg/dl (Normal)
[2022-02-01] VITALS (14 sets, daily range): BP systolic 107–154; BP diastolic 56–85; PULSE 89–127; RESP 14–21; TEMP 36.6–37.7; O2SAT 95–100; BMI 30.1
--- NOTE | 2022-02-01 | HP.PCM_ITS ---
Documented by User: TAMMY Mcdermott 02/01/22 00:14 HPI - General General Date of Admission: 02/01/22 Date of Service: 02/01/22 Chief Complaint: AMS, UTI HPI Narrative GABRIELA GAMBOA, is a 81 F who presents urinary complaints. Patient was seen for UTI yesterday and initiated on Keflex outpatient. Patient's friend stopped to see her today and noted that she seemed to be slightly confused and not acting herself so she brought her to the ER. Patient states that she took 1 dose of her Keflex so far. Patient states that she has a history of hyperlipidemia, hypertension, CAD. [facility] Medical History Abnormal mammogram of left breast Atherosclerotic heart disease of [place] coronary artery without angina pectoris Cancer Chronic back pain Debility Deep vein thrombosis of left lower extremity (04/2020) Dislocation of left ankle joint Essential hypertension Former smoker Hyperlipidemia Hypertension Knee pain, bilateral Neck pain Osteoarthritis Renal calculi Secondary pulmonary arterial hypertension Home Medications isosorbide mononitrate 60 mg tablet,extended release 24 hr 60 mg PO DAILY chest pain 07/09/16 [History Last Taken 04/10/20] amlodipine 10 mg tablet 10 mg PO DAILY blood pressure 12/10/16 [History Last Taken 04/10/20] benazepril 40 mg tablet 40 mg PO DAILY blood pressure 12/10/16 [History Last Taken 04/29/18] simvastatin 20 mg tablet 20 mg PO QHS cholesterol 12/10/16 [History Last Taken 04/09/20] aspirin 81 mg tablet,delayed release 81 mg PO QHS heart 04/10/20 [History Last Taken 04/10/20] calcium carbonate 500 mg calcium (1,250 mg) tablet (Calcium 500) 500 mg PO BID 08/25/20 [History Last Taken Unknown] hydrocodone-acetaminophen 5-325mg 5mg-325mg 1 tab PO BID PRN Pain 02/13/21 [History Last Taken Unknown] magnesium oxide 500 mg tablet 500 mg PO DAILY 03/31/21 [History Last Taken Unknown] zinc gluconate 50 mg tablet 50 mg PO DAILY 03/31/21 [History Last Taken Unknown] furosemide 40 mg tablet (Lasix) 40 mg PO DAILY #90 tabs 04/13/21 [Rx Last Taken Unknown] metoprolol succinate 50 mg tablet,extended release 24 hr (Toprol XL) 50 mg PO BID #180 tabs 06/22/21 [Rx Last Taken Unknown] omeprazole 20 mg capsule,delayed release 20 mg PO BID 06/22/21 [History Last Taken Unknown] baclofen 10 mg tablet 5 - 10 mg PO BID PRN spasms 12/28/21 [History Last Taken Unknown] cephalexin 500 mg capsule 500 mg PO BID #14 caps 01/30/22 [Rx Last Taken Unknown] Allergy/AdvReac Type Severity Reaction Status Date / Time No Known Allergies Allergy Verified 01/31/22 20:09 Family History Grandmother Breast cancer Surgical History H/O parathyroidectomy (2011) History of ankle surgery History of coronary artery stent placement (09/09/03) History of herniorrhaphy History of open reduction and internal fixation (ORIF) procedure (03/2020) Social History household members: none Smoking Status: Former smoker alcohol intake: current Vital Signs Vital Signs Vital Signs: 01/31/22 20:05 01/31/22 20:09 01/31/22 22:46 Temperature 96.7 F L 96.7 F L Temperature Source Temporal Temporal Pulse Rate 97 97 Respiratory Rate 15 15 Respiratory Pattern Normal Blood Pressure 89/74 L 89/74 L Blood Pressure Mean 79 79 Pulse Ox 97 97 Oxygen Delivery Method Room Air Room Air 01/31/22 23:00 Temperature Temperature Source Pulse Rate Respiratory Rate Respiratory Pattern Blood Pressure Blood Pressure Mean Pulse Ox 97 Oxygen Delivery Method Room Air Weight Weight: 165 lb Body Mass Index (BMI) 30.2 Physical Exam Const alert General Appearance: cooperative Orientation / Consciousness: confused HEENT normocephalic and head/scalp atraumatic Eyes conjunctivae normal and no scleral icterus Neck no lymphadenopathy and supple General: trachea midline Resp normal respiratory effort, normal air movement and clear to auscultation bilaterally Cardio regular rate, regular rhythm, S1 normal heart sound, S2 normal heart sound and peripheral pulses 2+ throughout GI normal to inspection, nondistended, normoactive bowel sounds, soft to palpation and non-tender Extremity normal capillary refill and no clubbing, cyanosis or edema Skin General Skin Exam: no breakdown Lesions: no lesions Rashes: no rashes Neuro no focal motor deficits and no sensory deficits noted Speech: speech normal Psych cooperative and affect normal Appearance: appropriate Results Lab / Micro Data Result Diagrams: 01/31/22 22:37 01/31/22 22:37 Labs: Laboratory Results - last 24 hr 01/31/22 22:37: WBC 14.8 H, RBC 4.44, Hgb 12.1, Hct 39.1, MCV 88.1, MCH 27.3, MCHC 30.9 L, RDW Std Deviation 49.7 H, RDW Coeff of [place] 15.4 H, Plt Count 242, MPV 9.5, Immature Gran % (Auto) 0.600, Neut % (Auto) 76.6 H, Lymph % (Auto) 8.3 L, [place] % (Auto) 14.2 H, Eos % (Auto) 0.0, Baso % (Auto) 0.3, Absolute Neuts (au to) 11.3 H, Absolute Lymphs (auto) 1.23, Nucleated RBC % 0 01/31/22 22:37: PT 15.9 H, INR 1.3, APTT 48.4 H 01/31/22 22:37: Sodium 139, Potassium 4.0, Chloride 104, Carbon Dioxide 27.0, Anion Gap 8, BUN 20 H, Creatinine 1.59 H, Estim Creat Clear Calc 21.95, Est GFR (MDRD) Af Amer 40 L, Est GFR (MDRD) Non-Af 33 L, BUN/Creatinine Ratio 12.6, Glucose 133 H, Calcium 9.5, Total Bilirubin 1.00, AST 17, ALT 17, Alkaline Phosphatase 57, Total Protein 7.0, Albumin 3.0 L, Globulin 4.0, Albumin/Globulin Ratio 0.8 L 01/31/22 22:37: Lactic Acid 1.4 01/31/22 23:46: Urine Color Yellow, Urine Clarity Sl. Cloudy, Urine pH 5.0, Ur Specific [place] 1.025, Urine Protein 100 H, Urine Glucose (UA) Normal, Urine Ketones 5 H, Urine Occult Blood 50 H, Urine Nitrite Positive H, Urine Bilirubin 3 H, Urine Urobilinogen 1 H, Ur Leukocyte Esterase 500 H Radiology Impression Chest X-Ray 01/31/22 23:12 IMPRESSION: No radiographic evidence of acute cardiopulmonary disease. Electronically Signed: Ender Mayen MD at 23:32 EDT , Assessment & Plan Assessment/Plan (1) UTI (urinary tract infection): (2) Sepsis: PLAN: Plan 1. Sepsis secondary to UTI -qSOFA score 2 due to hypotension and altered mental status -Patient has elevated white blood cell count 14.8 -Admit to PCU -Rocephin given in ER, will continue -Normal saline 125 mL x 1 bag ordered -Urinalysis pending, urine culture ordered -CBC and BMP ordered for a.m. -PT and OT to eval and treat -Intake and output 2. Hypertension -Antihypertensives held at this time due to hypotension -Vital signs per protocol, blood pressure improved with normal saline bolus in ER, currently stable 3. Severe arthritis -Continue as needed Vicodin and Tylenol 4. Hyperlipidemia/CAD -Continue simvastatin and aspirin -Cardiac diet ordered 5. Chronic kidney disease stage IIIa -Creatinine slightly elevated above baseline 1.53 -Normal saline 125 mL x 1 bag -BMP daily DVT prophylaxis-subcu Lovenox This patient was seen by TAMMY Mcdermott under the supervision of Dr. Mcmullen. 28 minutes spent in clinical coordination of patient's plan of care. Documented by User: Dr. Sean Mcmullen MD 02/01/22 00:52 HPI - General General Date of Admission: 01/31/22 [facility] Medical History Abnormal mammogram of left breast Atherosclerotic heart disease of [place] coronary artery without angina pectoris Cancer Chronic back pain Debility Deep vein thrombosis of left lower extremity (04/2020) Dislocation of left ankle joint Essential hypertension Former smoker Hyperlipidemia Hypertension Knee pain, bilateral Neck pain Osteoarthritis Renal calculi Secondary pulmonary arterial hypertension Home Medications isosorbide mononitrate 60 mg tablet,extended release 24 hr 60 mg PO DAILY chest pain 07/09/16 [History Last Taken 04/10/20] amlodipine 10 mg tablet 10 mg PO DAILY blood pressure 12/10/16 [History Last Taken 04/10/20] benazepril 40 mg tablet 40 mg PO DAILY blood pressure 12/10/16 [History Last Taken 04/29/18] simvastatin 20 mg tablet 20 mg PO QHS cholesterol 12/10/16 [History Last Taken 04/09/20] aspirin 81 mg tablet,delayed release 81 mg PO QHS heart 04/10/20 [History Last Taken 04/10/20] calcium carbonate 500 mg calcium (1,250 mg) tablet (Calcium 500) 500 mg PO BID 08/25/20 [History Last Taken Unknown] hydrocodone-acetaminophen 5-325mg 5mg-325mg 1 tab PO BID PRN Pain 02/13/21 [History Last Taken Unknown] magnesium oxide 500 mg tablet 500 mg PO DAILY 03/31/21 [History Last Taken Unknown] zinc gluconate 50 mg tablet 50 mg PO DAILY 03/31/21 [History Last Taken Unknown] furosemide 40 mg tablet (Lasix) 40 mg PO DAILY #90 tabs 04/13/21 [Rx Last Taken Unknown] metoprolol succinate 50 mg tablet,extended release 24 hr (Toprol XL) 50 mg PO BID #180 tabs 06/22/21 [Rx Last Taken Unknown] omeprazole 20 mg capsule,delayed release 20 mg PO BID 06/22/21 [History Last Taken Unknown] baclofen 10 mg tablet 5 - 10 mg PO BID PRN spasms 12/28/21 [History Last Taken Unknown] cephalexin 500 mg capsule 500 mg PO BID #14 caps 01/30/22 [Rx Last Taken Unknown] Allergy/AdvReac Type Severity Reaction Status Date / Time No Known Allergies Allergy Verified 01/31/22 20:09 Family History Grandmother Breast cancer Surgical History H/O parathyroidectomy (2011) History of ankle surgery History of coronary artery stent placement (09/09/03) History of herniorrhaphy History of open reduction and internal fixation (ORIF) procedure (03/2020) Social History household members: none Smoking Status: Former smoker alcohol intake: current Results Lab / Micro Data Result Diagrams: 01/31/22 22:37 01/31/22 22:37 Assessment & Plan Assessment/Plan (1) UTI (urinary tract infection): (2) Sepsis: PLAN: Plan 1. Sepsis secondary to UTI -qSOFA score 2 due to hypotension and altered mental status -Patient has elevated white blood cell count 14.8 -Admit to PCU -Rocephin given in ER, will continue -Normal saline 125 mL x 1 bag ordered -Urinalysis pending, urine culture ordered -CBC and BMP ordered for a.m. -PT and OT to eval and treat -Intake and output 2. Hypertension -Antihypertensives held at this time due to hypotension -Vital signs per protocol, blood pressure improved with normal saline bolus in ER, currently stable 3. Severe arthritis -Continue as needed Vicodin and Tylenol 4. Hyperlipidemia/CAD -Continue simvastatin and aspirin -Cardiac diet ordered 5. Chronic kidney disease stage IIIa -Creatinine slightly elevated above baseline 1.53 -Normal saline 125 mL x 1 bag -BMP daily DVT prophylaxis-subcu Lovenox This patient was seen by TAMMY Mcdermott under the supervision of Dr. Mcmullen. 28 minutes spent in clinical coordination of patient's plan of care. Patient seen and examined and agree with above assessment plan
[2022-02-01 00:11] LABS: Anisocytosis 1+
[2022-02-01 00:33] LABS: Bacteria 3+ /hpf (None Seen); Mucous, Urine 1+ /hpf (<or=2+); Red Blood Cells-Urine 0-5 SEEN /hpf (0-5); Squamous Epithelial Cells - UA 0-5 SEEN /hpf (5-10); White Blood Cells 25-50 SEEN /hpf (0-5)
[2022-02-01] MEDS: 0.9% Normal Saline 1,000 ML 125 ML IV (01:48)
[2022-02-01] MEDS: HYDROcodone Bitartrate/Apap 5/325 Tablet PO ×2 (02:36→23:37)
[2022-02-01] MEDS: Acetaminophen 325 MG Tablet 650 MG PO ×3 (05:40→19:54)
[2022-02-01 06:23] LABS: Absolute Neutrophil Count 8.7 X10^3/uL (2.0-7.7); Basophil# 0.04 X10^3/uL; Basophil% 0.3 % (0-1); Eosinophil# 0.03 X10^3/uL; Eosinophils% 0.3 % (0-5); Hematocrit 38.4 % (37-47); Lymphocyte % 12.6 % (19-41); Mean Corp Hgb Conc 31.3 g/dL (32-36); Mean Corpuscular Hgb 27.8 pg (27.0-32.0); Mean Corpuscular Volume 88.9 fL (81-99); Mean Platelet Vol. 10.1 fl (6.2-12.0); Monocyte# 1.52 X10^3/uL; Monocyte% 12.8 % (0-10); NRBC Flagged by Analyzer 0 % (0-5); Neutrophil # 8.74 X10^3/uL (2.7-7.7); Neutrophil % 73.4 % (47-70); POSITIVE DIFFERENTIAL YES; Platelet Count 241 K/mm3 (150-450); RBC Distribution Width CV 15.4 % (11.6-14.6); RBC Distribution Width SD 50.4 fl (35.1-43.9); Red Blood Count 4.32 M/mm3 (4.2-5.4); White Blood Count 11.9 K/mm3 (4.4-11.0)
[2022-02-01 06:26] LABS: Differential Indicated SCAN CRITERIA MET
[2022-02-01 06:38] LABS: Anisocytosis 1+
[2022-02-01 06:56] LABS: Anion Gap 8 (5-15); BUN 20 mg/dL (7-18); BUN/Creat Ratio 16.5 RATIO (10-20); Calcium,Total 8.9 mg/dL (8.5-10.1); Chloride 107 mmol/L (98-107); Creatinine, Serum 1.21 mg/dL (0.55-1.02); EST Glomerular Filtration Rate 45 mL/min (>60); Est Glom Filt Rate - Afr Amer 55 mL/min (>60); Estimated Creatinine Clearance 28.84 ml/min; Glucose 122 mg/dL (74-106); Potassium 3.8 mmol/L (3.5-5.1); Sodium Level 139 mmol/L (136-145)
--- NOTE | 2022-02-01 08:04 | PN.HOSP_ITS ---
Subjective Subjective Still with abdominal pain. Has chronic left back pain. Has had loose stool recently. Objective Data Objective Data Vital Signs: Vital Signs Temp Pulse Resp BP Pulse Ox O2 Del Method 37.7 C H 95 14 130/71 H 95 Room Air 02/01/22 07:18 02/01/22 07:18 02/01/22 07:18 02/01/22 07:18 02/01/22 07:18 02/01/22 07:18 Oxygen Delivery Method Room Air Weight: 74.8 kg Body Mass Index (BMI) 30.1 Intake & Output: Intake and Output for Last 24 Hours 01/30/22 01/31/22 02/01/22 23:59 23:59 23:59 Intake Total 1050 / 1050 Balance 1050 / 1050 Lab / Micro Data Result Diagrams: 02/01/22 05:39 02/01/22 05:39 Labs: Laboratory Results - last 24 hr 01/31/22 22:37: WBC 14.8 H, RBC 4.44, Hgb 12.1, Hct 39.1, MCV 88.1, MCH 27.3, MCHC 30.9 L, RDW Std Deviation 49.7 H, RDW Coeff of [place] 15.4 H, Plt Count 242, MPV 9.5, Immature Gran % (Auto) 0.600, Neut % (Auto) 76.6 H, Lymph % (Auto) 8.3 L, [place] % (Auto) 14.2 H, Eos % (Auto) 0.0, Baso % (Auto) 0.3, Absolute Neuts (auto) 11.3 H, Absolute Lymphs (auto) 1.23, Nucleated RBC % 0, Diff Path Review May foll, Anisocytosis 1+ 01/31/22 22:37: PT 15.9 H, INR 1.3, APTT 48.4 H 01/31/22 22:37: Sodium 139, Potassium 4.0, Chloride 104, Carbon Dioxide 27.0, Anion Gap 8, BUN 20 H, Creatinine 1.59 H, Estim Creat Clear Calc 21.95, Est GFR (MDRD) Af Amer 40 L, Est GFR (MDRD) Non-Af 33 L, BUN/Creatinine Ratio 12.6, Glucose 133 H, Calcium 9.5, Total Bilirubin 1.00, AST 17, ALT 17, Alkaline Phosphatase 57, Total Protein 7.0, Albumin 3.0 L, Globulin 4.0, Albumin/Globulin Ratio 0.8 L 01/31/22 22:37: Lactic Acid 1.4 01/31/22 23:46: Urine Color Yellow, Urine Clarity Sl. Cloudy, Urine pH 5.0, Ur Specific [place] 1.025, Urine Protein 100 H, Urine Glucose (UA) Normal, Urine Ketones 5 H, Urine Occult Blood 50 H, Urine Nitrite Positive H, Urine Bilirubin 3 H, Urine Urobilinogen 1 H, Ur Leukocyte Esterase 500 H, Urine RBC 0-5 SEEN, Urine WBC 25-50 SEEN, Ur Squamous Epith Cells 0-5 SEEN, Urine Bacteria 3+, Urine Mucus 1+ 02/01/22 05:39: WBC 11.9 H, RBC 4.32, Hgb 12.0, Hct 38.4, MCV 88.9, MCH 27.8, MCHC 31.3 L, RDW Std Deviation 50.4 H, RDW Coeff of [place] 15.4 H, Plt Count 241, MPV 10.1, Immature Gran % (Auto) 0.600, Neut % (Auto) 73.4 H, Lymph % (Auto) 12.6 L, [place] % (Auto) 12.8 H, Eos % (Auto) 0.3, Baso % (Auto) 0.3, Absolute Neuts (auto) 8.7 H, Absolute Lymphs (auto) 1.50, Nucleated RBC % 0, Diff Path Review May foll, Anisocytosis 1+ 02/01/22 05:39: Sodium 139, Potassium 3.8, Chloride 107, Carbon Dioxide 24.0, A nion Gap 8, BUN 20 H, Creatinine 1.21 H, Estim Creat Clear Calc 28.84, Est GFR (MDRD) Af Amer 55 L, Est GFR (MDRD) Non-Af 45 L, BUN/Creatinine Ratio 16.5, Glucose 122 H, Calcium 8.9 Radiography Diagnostic Testing: Radiology Impression Chest X-Ray 01/31/22 23:12 IMPRESSION: No radiographic evidence of acute cardiopulmonary disease. Electronically Signed: Ender Mayen MD at 23:32 EDT , Physical Exam Const alert and no apparent distress Resp normal respiratory effort, no retractions, no use of accessory muscles and clear to auscultation bilaterally Cardio regular rate, regular rhythm, S1 normal heart sound and S2 normal heart sound GI normal to inspection, nondistended, normoactive bowel sounds and soft to palpation GI Narrative: TTP in LUQ and RLQ. No suprapubic abdominal tenderness. Extremity normal to inspection Assessment & Plan Assessment/Plan (1) Sepsis: PLAN: Sepsis secondary to UTI -qSOFA score 2 due to hypotension and altered mental status -Patient has elevated white blood cell count 14.8 -Admit to PCU -Normal saline 125 mL x 1 bag ordered -CBC and BMP ordered for a.m. -PT and OT to eval and treat -Intake and output -Check CT to eval for colitis. (2) UTI (urinary tract infection): PLAN: Rocephin given in ER, will continue Urinalysis pending, urine culture showing presumptive E. coli PLAN: Plan Chronic conditions: * Hypertension-Antihypertensives held at this time due to hypotension-Vital signs per protocol, blood pressure improved with normal saline bolus in ER, currently stable * Severe arthritis-Continue as needed Vicodin and Tylenol * Hyperlipidemia/CAD-Continue simvastatin and aspirin-Cardiac diet ordered * Chronic kidney disease stage IIIa-Creatinine slightly elevated above baseline 1.53-Normal saline 125 mL x 1 bag-BMP daily DVT prophylaxis-subcu Lovenox Charges/Coding Visit Charges Inpatient E&M: 80278 Subs Hosp L2
[2022-02-01] MEDS: Enoxaparin 30 MG/0.3 ML Syringe SC (08:45)
[2022-02-01] MEDS: Pantoprazole Sodium 20 MG Tablet PO ×2 (08:45→21:45)
--- NOTE | 2022-02-01 10:15 | CASEMGMT ---
RN CM Face to Face with patient for initial transition planning/care coordination assessment. RN CM introduced self and role at [facility]. Patient lying in bed, alert and oriented. Patient willing to participate in assessment and is able to answer all questions appropriately. Care providers, pharmacy, and demographics verified. Patient wishes to discharge home, denies need for home health at this time. Patient states she has no further needs or concerns at this time. CM to follow for discharge planning needs that may arise. PCP: Helga Specialists: kei Wade [facility] Prescription Benefit: yes Living Will/HPOA: none LNOK: Brother Living Arrangements: Patient lives alone in a 1 story condo with 2 steps and railing to enter the home. Patient states she is independent at home. Transportation: self, friends DME/HHC: Patient states she has shower chair, grab bars, and walker at home. Patient has previously been to TCU and has had [facility] in the past. Disposition Plan: Patient to discharge home with family support and follow-up plans in place. Elizabeth QUIROZ, RN, CM
--- NOTE | 2022-02-01 10:37 | CT_ITS ---
INDICATION: abdominal pain EXAMINATION: CT ABDOMEN AND PELVIS WITH CONTRAST - CT Abdomen And Pelvis W/ Contrast Injection TECHNIQUE: Helically acquired images were obtained of the abdomen and pelvis following IV contrast. A radiation dose optimization technique was used for this scan. IV Contrast dosage and agent: 100 mL of [id number]. Oral contrast: None. COMPARISON: 02/13/2021. FINDINGS: LOWER CHEST: Lung bases are clear. No cardiomegaly or pericardial effusion. LIVER: Homogeneous. No focal mass. GALLBLADDER AND BILIARY TREE: No calcified gallstones. No gallbladder is distended, no evidence of gallbladder wall thickening, no evidence of pericholecystic stranding is seen. No intra- or extrahepatic biliary ductal dilation. PANCREAS: No focal cystic or solid mass. SPLEEN: Normal size without focal cystic or solid mass. ADRENAL GLANDS: No nodules. KIDNEYS AND URETERS: Marked hydronephrosis of the left kidney with cortical thinning and enhancement visualized. Severe left hydroureter ureter is visualized, at the level of the midpelvis there is narrowing of the ureter visualized, this is best seen on sagittal series 602 image 95, coronal series 601 image 77 and axial series 2 image 75 findings suggestive of a stricture. The right kidney demonstrates multiple simple cysts, no evidence of right hydronephrosis or hydroureter is seen. PERITONEUM: No ascites or free air. No other fluid collection. BOWEL: No evidence of acute appendicitis. No stomach or bowel distension. No focal inflammatory change. Subtle type I hiatus hernia seen. LYMPH NODES: No enlarged mesenteric or retroperitoneal lymph nodes. VESSELS: Aorta is non-dilated. URINARY BLADDER: The urinary bladder is collapsed. REPRODUCTIVE ORGANS: Lobulated contour of the uterus with areas of low attenuation are multiple coarse calcifications visualized consistent with fibroid uterus. No evidence of stranding of the pelvic fat planes. ABDOMINAL WALL: No discrete abdominal or pelvic wall hernia. BONES: Coarse calcifications visualized along the tendon insertions and the patient pelvic bones, extensive degenerative bone changes seen. CT/Abdomen/Pelvis WITH Contrast IMPRESSION: Severe left hydronephrosis and hydroureter in the proximal and mid segments is seen that demonstrates prominence in comparison to the prior study with wall enhancement, stranding of the perirenal fat planes visualized in the left could represent infection. Subtle simple cysts visualized in the right kidney. Distended gallbladder but no evidence of acute cholecystitis. Fibroid uterus seen. Degenerative bone changes seen. Electronically Signed: Rod Parjapati MD at 12:16 EDT ,
[2022-02-01 13:08] LABS: Pathologist Review Reviewed
[2022-02-01 13:10] LABS: Pathologist Review Reviewed
--- NOTE | 2022-02-01 15:00 | CHAPLAIN ---
Type of Pastoral Visit _x__ Initial Visit ___ Follow-up Visit ___ On-call Visit ___ General Patient Visit ___ Spiritual Assessment ___ Family Conference ___ Bereavement ___ Rapid Response ___ Code Blue ___ Other (describe below) Pastoral Care Referral From _x__ Patient ___ Family ___ Nurse ___ Physician ___ Hot Top Liner Helper ___ Painter Spray ___ Other (describe below) Sacrament/Intervention _x__ Active listening ___ Anointing ___ Christianity ___ Bereavement ___ Communion ___ Daina exploration ___ ___ Life review _x__ Prayer ___ Reconciliation ___ Sacrament of Sick ___ Supportive presence ___ Wedding ___ Other (describe below) Pastoral Comments patient asked for more blankets and one was at foot of bed so it was given to her; pt says that she is doing better but got to ED after zoroastrianism; pt states that I just need a prayer; offer of presence and prayer welcomed
[2022-02-01] MEDS: Metoprolol(XL)Succ 50 MG Tablet PO ×2 (15:53→21:45)
[2022-02-01] MEDS: Atorvastatin Calcium 10 MG Tablet PO (21:44)
[2022-02-01] MEDS: Ceftriaxone 1 GM/50 ML BAG IV (21:44)
[2022-02-01] MEDS: Aspirin E.C. 81 MG Tablet PO (21:45)
[2022-02-02] VITALS (7 sets, daily range): BP systolic 128–147; BP diastolic 62–67; PULSE 92–104; RESP 16–18; TEMP 37–37.4; O2SAT 94–97
[2022-02-02] MEDS: Acetaminophen 325 MG Tablet 650 MG PO ×2 (02:51→09:47)
[2022-02-02 06:30] LABS: Absolute Lymphocyte Count 0.58 X10^3/uL (0.83-4.51); Absolute Neutrophil Count 4.8 X10^3/uL (2.0-7.7); Basophil# 0.03 X10^3/uL; Basophil% 0.4 % (0-1); Eosinophil# 0.02 X10^3/uL; Eosinophils% 0.3 % (0-5); Hematocrit 35.4 % (37-47); Lymphocyte # 0.58 X10^3/ul (0.83-4.51); Lymphocyte % 8.7 % (19-41); Mean Corp Hgb Conc 31.1 g/dL (32-36); Mean Corpuscular Hgb 27.2 pg (27.0-32.0); Mean Corpuscular Volume 87.4 fL (81-99); Mean Platelet Vol. 10.3 fl (6.2-12.0); Monocyte# 1.22 X10^3/uL; Monocyte% 18.3 % (0-10); NRBC Flagged by Analyzer 0 % (0-5); POSITIVE DIFFERENTIAL YES; POSITIVE MORPHOLOGY YES; Platelet Count 198 K/mm3 (150-450); RBC Distribution Width CV 15.4 % (11.6-14.6); RBC Distribution Width SD 49.5 fl (35.1-43.9); Red Blood Count 4.05 M/mm3 (4.2-5.4); White Blood Count 6.7 K/mm3 (4.4-11.0)
[2022-02-02 06:43] LABS: Differential Indicated SCAN CRITERIA MET
[2022-02-02 06:51] LABS: Anion Gap 9 (5-15); BUN 17 mg/dL (7-18); BUN/Creat Ratio 19.7 RATIO (10-20); Calcium,Total 8.8 mg/dL (8.5-10.1); Chloride 109 mmol/L (98-107); Creatinine, Serum 0.86 mg/dL (0.55-1.02); EST Glomerular Filtration Rate 67 mL/min (>60); Est Glom Filt Rate - Afr Amer 81 mL/min (>60); Estimated Creatinine Clearance 40.58 ml/min; Glucose 106 mg/dL (74-106); Potassium 3.6 mmol/L (3.5-5.1); Sodium Level 140 mmol/L (136-145)
[2022-02-02 06:55] LABS: Anisocytosis 1+
[2022-02-02] MEDS: Enoxaparin 30 MG/0.3 ML Syringe SC (08:56)
[2022-02-02] MEDS: Pantoprazole Sodium 20 MG Tablet PO (08:56)
[2022-02-02] MEDS: Metoprolol(XL)Succ 50 MG Tablet PO (08:56)
[2022-02-02] MEDS: Isosorbide Mononitrate 60 MG Tablet PO (08:56)
[2022-02-02] MEDS: Magnesium Chloride 64 MG Delay Rel.Tablet 128 MG PO (08:56)
--- NOTE | 2022-02-02 08:56 | PN.HOSP_ITS ---
Subjective Subjective Feels much better today. Up and ambulating without difficulty. Objective Data Objective Data Vital Signs: Vital Signs Temp Pulse Resp BP Pulse Ox O2 Del Method 37.1 C 99 16 147/67 H 96 Room Air 02/02/22 06:00 02/02/22 06:55 02/02/22 06:00 02/02/22 06:00 02/02/22 06:00 02/02/22 07:35 Oxygen Delivery Method Room Air Weight: 73.7 kg Body Mass Index (BMI) 30.1 Intake & Output: Intake and Output for Last 24 Hours 01/31/22 02/01/22 02/02/22 23:59 23:59 23:59 Intake Total 2460 / 2760 700 / 700 Balance 2460 / 2760 700 / 700 Lab / Micro Data Result Diagrams: 02/02/22 05:55 02/02/22 05:55 Labs: Laboratory Results - last 24 hr 01/31/22 22:37: Diff Path Review Reviewed 02/01/22 05:39: Diff Path Review Reviewed 02/02/22 05:55: WBC 6.7, RBC 4.05 L, Hgb 11.0 L, Hct 35.4 L, MCV 87.4, MCH 27.2, MCHC 31.1 L, RDW Std Deviation 49.5 H, RDW Coeff of [place]ician[place] 15.4 H, Plt Count 198, MPV 10.3, Immature Gran % (Auto) 0.300, Neut % (Auto) 72.0 H, Lymph % (Auto) 8.7 L, [place] % (Auto) 18.3 H, Eos % (Auto) 0.3, Baso % (Auto) 0.4, Absolute Neuts (auto) 4.8, Absolute Lymphs (auto) 0.58 L, Nucleated RBC % 0, Anisocytosis 1+ 02/02/22 05:55: Sodium 140, Potassium 3.6, Chloride 109 H, Carbon Dioxide 22.0, Anion Gap 9, BUN 17, Creatinine 0.86, Estim Creat Clear Calc 40.58, Est GFR (MDRD) Af Amer 81, Est GFR (MDRD) Non-Af 67, BUN/Creatinine Ratio 19.7, Glucose 106, Calcium 8.8 Radiography Diagnostic Testing: Radiology Impression Abdomen/Pelvis CT 02/01/22 10:37 IMPRESSION: Severe left hydronephrosis and hydroureter in the proximal and mid segments is seen that demonstrates prominence in comparison to the prior study with wall enhancement, stranding of the perirenal fat planes visualized in the left could represent infection. Subtle simple cysts visualized in the right kidney. Distended gallbladder but no evidence of acute cholecystitis. Fibroid uterus seen. Degenerative bone changes seen. Electronically Signed: Rod Prajapati MD at 12:16 EDT , Physical Exam Resp normal respiratory effort, no retractions and no use of accessory muscles GI GI Narrative: slight RUQ pain. Extremity normal to inspection Psych affect normal Assessment & Plan Assessment/Plan (1) Sepsis: QUALIFIERS: Sepsis type: Escherichia coli Sepsis acute organ dysfunction status: without acute organ dysfunction Qualified Code(s): A41.51 - Sepsis due to Escherichia coli [E. coli] PLAN: Sepsis secondary to UTI/pyelonephritis -qSOFA score 2 due to hypotension and altered mental status -Patient has elevated white blood cell count 14.8 -Check CT to eval for colitis. -Change to ciprofloxacin (2) Pyelonephritis: PLAN: Rocephin given in ER, will continue UC showing pansensitive E. coli Ciprofloxacin for 7 days. (3) UTI (urinary tract infection): QUALIFIERS: Urinary tract infection type: acute pyelonephritis Qualified Code(s): N10 - Acute pyelonephritis (4) Debility: PLAN: Resolved. 2/2 sepsis and pyelonephritis Pt doing very well today. DC home with no services. PLAN: Plan Chronic conditions: * Hypertension-Antihypertensives held at this time due to hypotension-Vital signs per protocol, blood pressure improved with normal saline bolus in ER, currently stable * Severe arthritis-Continue as needed Vicodin and Tylenol * Hyperlipidemia/CAD-Continue simvastatin and aspirin-Cardiac diet ordered * Chronic kidney disease stage IIIa-Creatinine slightly elevated above baseline 1.53-Normal saline 125 mL x 1 bag-BMP daily DVT prophylaxis-subcu Lovenox
--- NOTE | 2022-02-02 10:55 | CASEMGMT ---
This RN CM to room to discuss d/c plan and pt states no concerns with going home at time of discharge. Pt states no need for any further therapy at discharge. Pt aware PCP can order further therapy once home, if she feels she needs it then. Pt voices no further questions/concerns/needs. SStaten CATRACHITO FITZPATRICK
--- NOTE | 2022-02-02 11:08 | DS.PCM_ITS ---
Providers Date of Admission: 01/31/22 Primary Care Physician: Dr. Stephanie Partida, DO Reason For Visit: UTI Diagnosis Discharge Diagnosis (1) Sepsis: Status: Acute Code(s): A41.9 - Sepsis, unspecified organism Qualifiers: Sepsis type: Escherichia coli Sepsis acute organ dysfunction status: without acute organ dysfunction Qualified Code(s): A41.51 - Sepsis due to Escherichia coli [E. coli] Plan: Sepsis secondary to UTI/pyelonephritis -qSOFA score 2 due to hypotension and altered mental status -Patient has elevated white blood cell count 14.8 -Check CT to eval for colitis. -Change to ciprofloxacin (2) Pyelonephritis: Status: Acute Code(s): N12 - Tubulo-interstitial nephritis, not specified as acute or chronic Plan: Rocephin given in ER, will continue UC showing pansensitive E. coli Ciprofloxacin for 7 days. (3) UTI (urinary tract infection): Status: Acute Code(s): N39.0 - Urinary tract infection, site not specified Qualifiers: Urinary tract infection type: acute pyelonephritis Qualified Code(s): N10 - Acute pyelonephritis (4) Debility: Status: Acute Code(s): R53.81 - Other malaise Plan: Resolved. 2/2 sepsis and pyelonephritis Pt doing very well today. DC home with no services. Plan Chronic conditions: * Hypertension-Antihypertensives held at this time due to hypotension-Vital signs per protocol, blood pressure improved with normal saline bolus in ER, currently stable * Severe arthritis-Continue as needed Vicodin and Tylenol * Hyperlipidemia/CAD-Continue simvastatin and aspirin-Cardiac diet ordered * Chronic kidney disease stage IIIa-Creatinine slightly elevated above baseline 1.53-Normal saline 125 mL x 1 bag-BMP daily DVT prophylaxis-subcu Lovenox Medications at Discharge Home Medications isosorbide mononitrate 60 mg tablet,extended release 24 hr 60 mg PO DAILY chest pain 07/09/16 amlodipine 10 mg tablet 10 mg PO DAILY blood pressure 12/10/16 benazepril 40 mg tablet 40 mg PO DAILY blood pressure 12/10/16 simvastatin 20 mg tablet 20 mg PO QHS cholesterol 12/10/16 aspirin 81 mg tablet,delayed release 81 mg PO QHS heart 04/10/20 calcium carbonate 500 mg calcium (1,250 mg) tablet (Calcium 500) 500 mg PO BID 08/25/20 hydrocodone-acetaminophen 5-325mg 5mg-325mg 1 tab PO BID PRN Pain 02/13/21 magnesium oxide 500 mg tablet 500 mg PO DAILY 03/31/21 zinc gluconate 50 mg tablet 50 mg PO DAILY 03/31/21 furosemide 40 mg tablet (Lasix) 40 mg PO DAILY #90 tabs 04/13/21 metoprolol succinate 50 mg tablet,extended release 24 hr (Toprol XL) 50 mg PO BID #180 tabs 06/22/21 omeprazole 20 mg capsule,delayed release 20 mg PO BID 06/22/21 baclofen 10 mg tablet 5 - 10 mg PO BID PRN spasms 12/28/21 cephalexin 500 mg capsule 500 mg PO BID #14 caps 01/30/22 ciprofloxacin HCl 500 mg tablet 500 mg PO Q12H #14 tabs 02/02/22 Hospital Course Operations None Procedures None Summary of Care Provided Minutes Spent on Discharge: 28 Weight / BMI Weight Weight: 73.7 kg Body Mass Index (BMI) 30.1 ABG / Lab / Microbiology Data Result Diagrams: 02/02/22 05:55 02/02/22 05:55 Laboratory: Laboratory Results - last 24 hr 01/31/22 22:37: Diff Path Review Reviewed 02/01/22 05:39: Diff Path Review Reviewed 02/02/22 05:55: WBC 6.7, RBC 4.05 L, Hgb 11.0 L, Hct 35.4 L, MCV 87.4, MCH 27.2, MCHC 31.1 L, RDW Std Deviation 49.5 H, RDW Coeff of [place]ician[place] 15.4 H, Plt Count 198, MPV 10.3, Immature Gran % (Auto) 0.300, Neut % (Auto) 72.0 H, Lymph % (Auto) 8.7 L, [place] % (Auto) 18.3 H, Eos % (Auto) 0.3, Baso % (Auto) 0.4, Absolute Neuts (auto) 4.8, Absolute Lymphs (auto) 0.58 L, Nucleated RBC % 0, Anisocytosis 1+ 02/02/22 05:55: Sodium 140, Potassium 3.6, Chloride 109 H, Carbon Dioxide 22.0, Anion Gap 9, BUN 17, Creatinine 0.86, Estim Creat Clear Calc 40.58, Est GFR (MDRD) Af Amer 81, Est GFR (MDRD) Non-Af 67, BUN/Creatinine Ratio 19.7, Glucose 106, Calcium 8.8 Radiography Diagnostic Testing: Radiology Impression Abdomen/Pelvis CT 02/01/22 10:37 IMPRESSION: Severe left hydronephrosis and hydroureter in the proximal and mid segments is seen that demonstrates prominence in comparison to the prior study with wall enhancement, stranding of the perirenal fat planes visualized in the left could represent infection. Subtle simple cysts visualized in the right kidney. Distended gallbladder but no evidence of acute cholecystitis. Fibroid uterus seen. Degenerative bone changes seen. Electronically Signed: Rod Prajapati MD at 12:16 EDT Reading Location ID and State: [facility] / [place] Tel , Service support , D/C Instructions Discharge Diet: No restrictions Call your doctor if you observe: Fever of 101 or Higher and Inability to urinate Meaningful Use Info Meaningful Use Diagnoses (Choose all that apply): None applicable Discharge Plan Admission Admit Date/Time: 01/31/22 23:53 Primary Reason for Your Visit: Sepsis. Pyelonephritis Attending Provider: Jonathan Gavin Primary Care Provider: Stephanie Partida Consulting Providers: Sean Mcmullen Discharge Orders/Prescriptions Prescriptions: New ciprofloxacin HCl 500 mg tablet 500 mg PO Q12H Qty: 14 0RF Continued calcium carbonate [Calcium 500] 500 mg calcium (1,250 mg) tablet 500 mg PO BID magnesium oxide 500 mg tablet 500 mg PO DAILY zinc gluconate 50 mg tablet 50 mg PO DAILY omeprazole 20 mg capsule,delayed release(DR/EC) 20 mg PO BID metoprolol succinate [Toprol XL] 50 mg tablet extended release 24 hr 50 mg PO BID Qty: 180 3RF cephalexin 500 mg capsule 500 mg PO BID Qty: 14 0RF isosorbide mononitrate 60 MG tablet extended release 24 hr 60 mg PO DAILY amlodipine 10 MG tablet 10 mg PO DAILY Label Comments: simvastatin 20 MG tablet 20 mg PO QHS benazepril 40 MG tablet 40 mg PO DAILY Label Comments: baclofen 10 mg tablet 5 - 10 mg PO BID PRN (Reason: spasms) aspirin 81 MG tablet,delayed release (DR/EC) 81 mg PO QHS hydrocodone-acetaminophen 5-325 mg tablet 1 tab PO BID PRN (Reason: Pain) Label Comments: take 1 tablet by mouth one to two times a day if needed for pain furosemide [Lasix] 40 mg tablet 40 mg PO DAILY Qty: 90 3RF Referrals / Follow Up: Stephanie Partida DO [Primary Care Provider] - Within 2 Weeks Disposition Disposition (needs filled in before D/C Order can be placed): Home, Self Care Charges/Coding Visit Charges Inpatient E&M: 02671 Disch Hosp
== END 2022-02-02 12:10 | disposition home or self-care (01) | DRG 872 ==
LOC: ED 23:38 → PCU 02-01 00:16
PROVIDERS: Nurse Practitioner Family; Admitting Provider Family Medicine; Emergency Provider Emergency Medicine; PCP Family Medicine
DX: A41.51 Sepsis due to Escherichia coli [E. coli] (principal); N13.6 Pyonephrosis; N10 Acute pyelonephritis; N18.31 Chronic kidney disease, stage 3a; E78.5 Hyperlipidemia, unspecified; M19.90 Unspecified osteoarthritis, unspecified site; I12.9 Hypertensive chronic kidney disease with stage 1 through stage 4 chronic kidney disease, or unspecified chronic kidney disease; I25.10 Atherosclerotic heart disease of native coronary artery without angina pectoris; G89.29 Other chronic pain; Z87.891 Personal history of nicotine dependence; Z79.82 Long term (current) use of aspirin
CPT/HCPCS: 36415; 71045; 74177; 80048; 80053; 81001; 83605; 85025; 85610; 85730; 87040; 87086; 87088; 87186; 93005; 97161; 97802; 99285; J7030; Q9967; A4216

== ENCOUNTER 2022-02-04 16:59 | Emergency (ER) | payer MEDICARE, OTHER, SELFPAY ==
[2022-02-04 17:00] VITALS: BP 140/87; PULSE 112; RESP 18; TEMP 36.6; O2SAT 98; BMI 30.2
[2022-02-04 17:36] VITALS: BP 142/87; PULSE 114; RESP 18; TEMP 36.6
--- NOTE | 2022-02-04 18:00 | EX.ED.DYSGE1 ---
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 Fevers have resolved as far as today's concern, she is coughing, that has been the case since the beginning but it seems worse. She has some coughing fits. She has some mild dyspnea with exertion when she is not coughing, she does not have COPD or asthma. She does have pulmonary hypertension. She was seen at her doctor's office today according to the patient, and sent to the ER for further evaluation. [facility] Medical History Abnormal mammogram of left breast Atherosclerotic heart disease of [place] coronary artery without angina pectoris Cancer Chronic back pain Debility Deep vein thrombosis of left lower extremity (04/2020) Dislocation of left ankle joint Essential hypertension Former smoker Hyperlipidemia Hypertension Knee pain, bilateral Neck pain Osteoarthritis Renal calculi Secondary pulmonary arterial hypertension Home Medications isosorbide mononitrate 60 mg tablet,extended release 24 hr 60 mg PO DAILY chest pain 07/09/16 [History Last Taken 04/10/20] amlodipine 10 mg tablet 10 mg PO DAILY blood pressure 12/10/16 [History Last Taken 04/10/20] benazepril 40 mg tablet 40 mg PO DAILY blood pressure 12/10/16 [History Last Taken 04/29/18] simvastatin 20 mg tablet 20 mg PO QHS cholesterol 12/10/16 [History Last Taken 04/09/20] aspirin 81 mg tablet,delayed release 81 mg PO QHS heart 04/10/20 [History Last Taken 04/10/20] calcium carbonate 500 mg calcium (1,250 mg) tablet (Calcium 500) 500 mg PO BID 08/25/20 [History Last Taken Unknown] hydrocodone-acetaminophen 5-325mg 5mg-325mg 1 tab PO BID PRN Pain 02/13/21 [History Last Taken Unknown] magnesium oxide 500 mg tablet 500 mg PO DAILY 03/31/21 [History Last Taken Unknown] zinc gluconate 50 mg tablet 50 mg PO DAILY 03/31/21 [History Last Taken Unknown] furosemide 40 mg tablet (Lasix) 40 mg PO DAILY #90 tabs 04/13/21 [Rx Last Taken Unknown] metoprolol succinate 50 mg tablet,extended release 24 hr (Toprol XL) 50 mg PO BID #180 tabs 06/22/21 [Rx Last Taken Unknown] omeprazole 20 mg capsule,delayed release 20 mg PO BID 06/22/21 [History Last Taken Unknown] baclofen 10 mg tablet 5 - 10 mg PO BID PRN spasms 12/28/21 [History Last Taken Unknown] ciprofloxacin HCl 500 mg tablet 500 mg PO Q12H #14 tabs 02/02/22 [Rx Last Taken Unknown] albuterol sulfate 90 mcg/actuation aerosol inhaler (Ventolin HFA) 1 - 2 puff inhalation Q4H PRN PRN Wheezing ##1 02/04/22 [Rx Last Taken Unknown] ondansetron 4 mg disintegrating tablet 8 mg PO Q8H PRN PRN Nausea #20 tabs 02/04/22 [Rx Last Taken Unknown] potassium chloride 20 mEq tablet,extended release 20 meq PO DAILY #30 tabs 02/04/22 [Rx Last Taken Unknown] Allergy/AdvReac Type Severity Reaction Status Date / Time No Known Allergies Allergy Verified 02/04/22 17:00 Family History Grandmother Breast cancer Surgical History H/O parathyroidectomy (2011) History of ankle surgery History of coronary artery stent placement (09/09/03) History of herniorrhaphy History of open reduction and internal fixation (ORIF) procedure (03/2020) Social History household members: none [facility] current occupational status: retired pets and animals: Yes (dog) Smoking Status: Former smoker alcohol intake: current ROS ROS ED Constitutional Constitutional ED: Reports fatigue and fever(s); Denies chills Eyes Eyes: Denies change in vision or diplopia ENT ENT ED: Denies rhinorrhea or sore throat Cardiovascular Cardiovascular: Denies chest pain, orthopnea or palpitations Respiratory/Chest Respiratory/Chest: Reports cough and dyspnea on exertion; Denies orthopnea or sputum Gastrointestinal Gastrointestinal: Reports nausea; Denies abdominal pain, diarrhea or vomiting Genitourinary Genitourinary ED: Denies dysuria or hematuria Musculoskeletal Musculoskeletal: Denies back pain or neck pain Integumentary Denies abscess or rash Neurologic Neurologic: Denies headache(s), paresthesias or weakness Psychiatric Psychiatric: Denies anxiety or suicidal thoughts EXAM Physical Exam Const Vital Signs: 02/04/22 17:00 02/04/22 17:34 02/04/22 17:36 Temperature 97.8 F 97.9 F Temperature Source Temporal Oral Pulse Rate 112 H 114 H Respiratory Rate 18 18 Respiratory Effort Normal Respiratory Pattern Normal Blood Pressure 140/87 H 142/87 H Blood Pressure Mean 104 105 Pulse Ox 98 Oxygen Delivery Method Room Air Room Air 02/04/22 18:06 02/04/22 18:06 02/04/22 20:04 Temperature 97.9 F Temperature Source Temporal Pulse Rate 110 H 110 H Respiratory Rate 16 20 H Respiratory Effort Respiratory Pattern Blood Pressure 140/75 H Blood Pressure Mean 96 Pulse Ox 100 94 Oxygen Delivery Method Room Air Room Air Positive well nourished and well developed General Appearance ED: well developed and NAD HEENT Reports moist mucous membranes normocephalic and atraumatic Eyes PERRL and EOMs intact bilaterally Neck full ROM, no lymphadenopathy and supple Chest Wall inspection of chest normal and palpation of chest normal Resp normal respiratory effort and clear to auscultation bilaterally Effort and Inspection: able to speak in complete sentences Cardio regular rate, regular rhythm and no murmurs GI non-tender and non-distended Auscultation: normoactive bowel sounds Palpation: soft Back/Spine no CVA tenderness General Back: other FROM Extremity normal to inspection General Extremety ED: Negative for edema, pulses abnormal or tenderness General Extremity: Negative for edema or pulses abnormal Neuro oriented x3, CN's II-XII intact bilaterally and no sensory deficits noted Sensorium / Orientation: awake and alert Motor Exam: strength 5/5 throughout Psych mental status grossly normal Skin no rashes or lesions noted and no wounds MDM MDM MDM Narrative Medical decision making narrative: I repeated her x-ray, still negative. She does not have a leukocytosis. She is a little anemic, but not low enough that she needs a transfusion. She has not been bleeding from anywhere. Her potassium is slightly low, that could explain some of her fatigue and she is on a diuretic. Give her some oral potassium and a prescription for couple days. I did a COVID test that is negative. She is already on Cipro. At this time there is no indication for adding more antibiotics. I gave her an albuterol aerosol which did help with her dyspnea and I will prescribe her an albuterol MDI as well. I recommend close outpatient follow-up. Lab Data Attestation: I reviewed the patient's lab results. Labs: Laboratory Results - last 24 hr 02/04/22 02/04/22 18:10 18:10 WBC 8.2 RBC 3.84 L Hgb 10.4 L Hct 33.5 L MCV 87.2 MCH 27.1 MCHC 31.0 L RDW Std Deviation 50.0 H RDW Coeff of [place] 15.6 H Plt Count 294 MPV 10.4 Immature Gran % (Auto) 1.000 H Neut % (Auto) 73.1 H Lymph % (Auto) 8.6 L [place] % (Auto) 16.7 H Eos % (Auto) 0.2 Baso % (Auto) 0.4 Absolute Neuts (auto) 6.0 Absolute Lymphs (auto) 0.71 L Nucleated RBC % 0 Sodium 139 Potassium 3.4 L Chloride 105 Carbon Dioxide 25.0 Anion Gap 9 BUN 16 Creatinine 1.01 Estim Creat Clear Calc 34.55 Est GFR (MDRD) Af Amer 68 Est GFR (MDRD) Non-Af 56 L BUN/Creatinine Ratio 15.8 Glucose 138 H Calcium 9.0 Radiography Diagnostic Testing: Clinical Impression(s) from Imaging Studies Chest X-Ray 02/04/22 18:18 IMPRESSION: No acute findings. Electronically Signed: Theresa Dumont MD at 18:44 EDT Reading Location ID and State: [id number] / Tel , Service support , Discharge Plan Triage Chief Complaint: General Illness ED Provider: Ronal Hernández Dx/Rx/DC Orders Clinical Impression: Acute bronchitis, Hypokalemia due to excessive renal loss of potassium, Nausea Instructions: Acute Bronchitis, ED Hypokalemia Prescriptions: New albuterol sulfate [Ventolin HFA] 90 mcg/actuation HFA aerosol inhaler 1 - 2 puff inhalation Q4H PRN PRN (Reason: Wheezing) Qty: 1 0RF ondansetron [ondansetron] 4 mg tablet,disintegrating 8 mg PO Q8H PRN PRN (Reason: Nausea) Qty: 20 0RF potassium chloride 20 mEq tablet extended release 20 meq PO DAILY Qty: 30 0RF No Action calcium carbonate [Calcium 500] 500 mg calcium (1,250 mg) tablet 500 mg PO BID magnesium oxide 500 mg tablet 500 mg PO DAILY zinc gluconate 50 mg tablet 50 mg PO DAILY omeprazole 20 mg capsule,delayed release(DR/EC) 20 mg PO BID metoprolol succinate [Toprol XL] 50 mg tablet extended release 24 hr 50 mg PO BID Qty: 180 3RF isosorbide mononitrate 60 MG tablet extended release 24 hr 60 mg PO DAILY amlodipine 10 MG tablet 10 mg PO DAILY Label Comments: simvastatin 20 MG tablet 20 mg PO QHS benazepril 40 MG tablet 40 mg PO DAILY Label Comments: baclofen 10 mg tablet 5 - 10 mg PO BID PRN (Reason: spasms) aspirin 81 MG tablet,delayed release (DR/EC) 81 mg PO QHS hydrocodone-acetaminophen 5-325 mg tablet 1 tab PO BID PRN (Reason: Pain) Label Comments: take 1 tablet by mouth one to two times a day if needed for pain ciprofloxacin HCl 500 mg tablet 500 mg PO Q12H Qty: 14 0RF furosemide [Lasix] 40 mg tablet 40 mg PO DAILY Qty: 90 3RF Primary Care Provider: Stephanie Partida Referrals: Stephanie Partida DO [Primary Care Provider] - 3-5 Days if not improving Disposition Disposition: Home, Self Care
[2022-02-04] MEDS: Albuterol 2.5 MG/3 ML VIAL.NEB. INHALATION (18:03)
[2022-02-04 18:06] VITALS: PULSE 110; RESP 16; O2SAT 100
[2022-02-04] MEDS: Ondansetron 4 MG/2 ML Vial IV (18:16)
--- NOTE | 2022-02-04 18:18 | RAD_ITS ---
STUDY: X-RAY CHEST REASON FOR EXAM: Female, 81 years old. cough, sob TECHNIQUE: PA and lateral views of the chest. COMPARISON: 01/31/2022. FINDINGS: The lungs are clear and expanded. There is no demonstrated pleural abnormality. Normal size heart. Normal mediastinum and brendan. Normal visualized pulmonary arteries. Normal visualized aortic arch and descending thoracic aorta. Mild degenerative changes of the thoracic spine. Soft tissues and bony structures are otherwise unremarkable. RAD/Chest PA and Lateral IMPRESSION: No acute findings. Electronically Signed: Theresa Dumont MD at 18:44 EDT Reading Location ID and State: [id number] / Tel , Service support ,
[2022-02-04 18:37] LABS: Anion Gap 9 (5-15); BUN 16 mg/dL (7-18); BUN/Creat Ratio 15.8 RATIO (10-20); Chloride 105 mmol/L (98-107); Creatinine, Serum 1.01 mg/dL (0.55-1.02); EST Glomerular Filtration Rate 56 mL/min (>60); Est Glom Filt Rate - Afr Amer 68 mL/min (>60); Estimated Creatinine Clearance 34.55 ml/min; Glucose 138 mg/dL (74-106); Potassium 3.4 mmol/L (3.5-5.1); Sodium Level 139 mmol/L (136-145)
[2022-02-04 18:42] LABS: Absolute Lymphocyte Count 0.71 X10^3/uL (0.83-4.51); Basophil# 0.03 X10^3/uL; Basophil% 0.4 % (0-1); Eosinophil# 0.02 X10^3/uL; Eosinophils% 0.2 % (0-5); Hematocrit 33.5 % (37-47); Hemoglobin 10.4 g/dL (12.0-15.0); Lymphocyte # 0.71 X10^3/ul (0.83-4.51); Lymphocyte % 8.6 % (19-41); Mean Corpuscular Hgb 27.1 pg (27.0-32.0); Mean Corpuscular Volume 87.2 fL (81-99); Mean Platelet Vol. 10.4 fl (6.2-12.0); Monocyte# 1.37 X10^3/uL; Monocyte% 16.7 % (0-10); NRBC Flagged by Analyzer 0 % (0-5); Neutrophil # 6.01 X10^3/uL (2.7-7.7); Neutrophil % 73.1 % (47-70); Platelet Count 294 K/mm3 (150-450); RBC Distribution Width CV 15.6 % (11.6-14.6); Red Blood Count 3.84 M/mm3 (4.2-5.4); White Blood Count 8.2 K/mm3 (4.4-11.0)
[2022-02-04] MEDS: Potassium Chloride Oral Tablet 20 MEQ 40 MEQ PO (20:01)
[2022-02-04 20:04] VITALS: BP 140/75; PULSE 110; RESP 20; TEMP 36.6; O2SAT 94
== END 2022-02-04 20:46 | disposition home or self-care (01) ==
PROVIDERS: Emergency Provider Emergency Medicine; PCP Family Medicine; Visit Provider Emergency Medicine
DX: J20.9 Acute bronchitis, unspecified (principal); I27.20 Pulmonary hypertension, unspecified; I10 Essential (primary) hypertension; E78.5 Hyperlipidemia, unspecified; M54.9 Dorsalgia, unspecified; R11.0 Nausea; D64.9 Anemia, unspecified; E87.6 Hypokalemia; Z87.891 Personal history of nicotine dependence; E87.5 Hyperkalemia; I25.10 Atherosclerotic heart disease of native coronary artery without angina pectoris
CPT/HCPCS: 71046; 80048; 85025; 87428; 94640; 96361; 96374; 99284; J7040; A4216; J2405

== ENCOUNTER 2022-02-09 08:03 | Emergency (ER) | payer MEDICARE, OTHER, SELFPAY ==
[2022-02-09 08:04] VITALS: BP 133/94; PULSE 114; RESP 18; TEMP 36.4; O2SAT 95; BMI 30.2
[2022-02-09 08:19] VITALS: BP 137/60; PULSE 100; RESP 24; TEMP 36.1; O2SAT 96
--- NOTE | 2022-02-09 08:19 | EKG12_ITS ---
Test Reason : Blood Pressure : / mmHG Vent. Rate : 104 BPM Atrial Rate : 104 BPM P-R Int : 138 ms QRS Dur : 070 ms QT Int : 334 ms P-R-T Axes : 047 049 031 degrees QTc Int : 439 ms Sinus tachycardia Otherwise normal ECG Confirmed by REGINA LEA, ALVARO ([id number]), editor index ADEN HANNON ([id number]) on 02/10/2022 12:57:45 P M Referred By: Confirmed By:STERLING TAPIA MD
--- NOTE | 2022-02-09 08:22 | EDS_ITS ---
HPI History of Present Illness Chief Complaint: General Illness Informant: patient and family Narrative Narrative: 81-year-old female presenting to the emergency department for weakness. Patient was admitted last week for UTI and subsequently returned after discharge with bronchitis. She states that they sent me home too early but nobody cares. I explained to her that if you do not meet inpatient criteria that patients are sometimes salad with a very large bill that is uncovered further prolonged hospital stays and that makes patient's upset as well. And its not that we do not care it is that we have certain guidelines we have to meet. When asked what brings her in she states she is sick. When asked in what way family provides the background of her recent hospitalization and visits. The patient tells me that she is nauseous and she has not ate well for 2 weeks. She continues to cough and her back hurts. She states that sometimes she has posttussive emesis. She states that sometimes her cough is productive. She denies diarrhea. She states she has a fever and when asked when she says I do not know may be yesterday and it was 102. She states her doctor sent her a medication called [place] but she cannot take it. When asked why she cannot take it she states she does not remember. [facility] Medical History Abnormal mammogram of left breast Atherosclerotic heart disease of [place] coronary artery without angina pectoris Cancer Chronic back pain Debility Deep vein thrombosis of left lower extremity (04/2020) Dislocation of left ankle joint Essential hypertension Former smoker Hyperlipidemia Hypertension Knee pain, bilateral Neck pain Osteoarthritis Renal calculi Secondary pulmonary arterial hypertension Home Medications isosorbide mononitrate 60 mg tablet,extended release 24 hr 60 mg PO DAILY chest pain 07/09/16 [History Last Taken 04/10/20] amlodipine 10 mg tablet 10 mg PO DAILY blood pressure 12/10/16 [History Last Taken 04/10/20] benazepril 40 mg tablet 40 mg PO DAILY blood pressure 12/10/16 [History Last Taken 04/29/18] simvastatin 20 mg tablet 20 mg PO QHS cholesterol 12/10/16 [History Last Taken 04/09/20] aspirin 81 mg tablet,delayed release 81 mg PO QHS heart 04/10/20 [History Last Taken 04/10/20] calcium carbonate 500 mg calcium (1,250 mg) tablet (Calcium 500) 1,200 mg PO BID 08/25/20 [History Last Taken Unknown] hydrocodone-acetaminophen 5-325mg 5mg-325mg 1 - 2 tab PO BID PRN Pain 02/13/21 [History Last Taken Unknown] magnesium oxide 500 mg tablet 500 mg PO DAILY 03/31/21 [History Last Taken Unknown] zinc gluconate 50 mg tablet 50 mg PO DAILY 03/31/21 [History Last Taken Unknown] metoprolol succinate 50 mg tablet,extended release 24 hr (Toprol XL) 50 mg PO BID #180 tabs 06/22/21 [Rx Last Taken Unknown] omeprazole 20 mg capsule,delayed release 20 mg PO BID 06/22/21 [History Last Taken Unknown] baclofen 10 mg tablet 5 - 10 mg PO BID PRN spasms 12/28/21 [History Last Taken Unknown] albuterol sulfate 90 mcg/actuation aerosol inhaler (Ventolin HFA) 1 - 2 puff inhalation Q4H PRN PRN Wheezing ##1 02/04/22 [Rx Last Taken Unknown] ondansetron 4 mg disintegrating tablet 8 mg PO Q8H PRN PRN Nausea #20 tabs 02/04/22 [Rx Last Taken Unknown] potassium chloride 20 mEq tablet,extended release 20 meq PO DAILY #30 tabs 02/04/22 [Rx Last Taken Unknown] furosemide 40 mg tablet (Lasix) 40 mg PO DAILY PRN swelling 02/09/22 [History Last Taken Unknown] Allergy/AdvReac Type Severity Reaction Status Date / Time No Known Allergies Allergy Verified 02/09/22 08:08 Family History Grandmother Breast cancer Surgical History H/O parathyroidectomy (2011) History of ankle surgery History of coronary artery stent placement (09/09/03) History of herniorrhaphy History of open reduction and internal fixation (ORIF) procedure (03/2020) Social History household members: none housing: condominium current occupational status: retired pets and animals: Yes (dog) Smoking Status: Former smoker alcohol intake: current ROS ROS ED ROS Narrative Generalized weakness Constitutional Constitutional ED: Denies chills or weight loss Eyes Eyes: Denies change in vision or diplopia ENT ENT ED: Denies ear pain, rhinorrhea or sore throat Cardiovascular Cardiovascular: Denies chest pain, orthopnea, palpitations or racing heartbeat Respiratory/Chest Respiratory/Chest: Reports cough; Denies dyspnea or orthopnea Gastrointestinal Gastrointestinal: Reports nausea, vomiting and other Details: Decreased p.o. intake ; Denies abdominal pain or diarrhea Genitourinary Genitourinary ED: Denies dysuria, hematuria or urinary frequency Musculoskeletal Musculoskeletal: Reports back pain; Denies arthralgias or myalgias Integumentary Denies abscess or rash Neurologic Neurologic: Denies headache(s) or weakness Psychiatric Psychiatric: Denies anxiety, depression, suicidal ideation or suicidal thoughts Endocrine Endocrinology: Denies polydipsia, polyphagia or polyuria Allergic/Immunologic Allergic/Immunologic ED: Denies mouth swelling, tongue swelling or urticaria EXAM Physical Exam Const Vital Signs: 02/09/22 08:04 02/09/22 08:19 02/09/22 08:19 Temperature 97.5 F L 96.9 F L 96.9 F L Temperature Source Temporal Temporal Temporal Pulse Rate 114 H 100 100 Respiratory Rate 18 24 H 24 H Respiratory Effort Respiratory Pattern Blood Pressure 133/94 H 137/60 H 137/60 H Blood Pressure Mean 107 85 85 Pulse Ox 95 96 96 Oxygen Delivery Method Room Air Room Air Room Air 02/09/22 08:19 02/09/22 09:04 02/09/22 09:36 Temperature 98.5 F Temperature Source Temporal Pulse Rate 99 Respiratory Rate 24 H Respiratory Effort Normal Non-Labored Respiratory Pattern Tachypnea Blood Pressure 145/60 H Blood Pressure Mean 88 Pulse Ox 98 Oxygen Delivery Method Room Air Room Air 02/09/22 10:00 02/09/22 10:00 Temperature 98.1 F 98.1 F Temperature Source Oral Oral Pulse Rate 100 100 Respiratory Rate 25 H 25 H Respiratory Effort Respiratory Pattern Blood Pressure 157/68 H 157/68 H Blood Pressure Mean 97 97 Pulse Ox 94 94 Oxygen Delivery Method Room Air Room Air Positive well nourished and well developed General Appearance ED: well developed HEENT Reports normocephalic, head/scalp atraumatic and dry mucous membranes Mouth ED: Yes dry mucous membranes Mouth: dry mucous membranes Eyes PERRL and EOMs intact bilaterally Neck no lymphadenopathy, supple and no JVD Resp normal respiratory effort and clear to auscultation bilaterally Cardio regular rate and no murmurs Rate: tachycardic GI normal to inspection, nondistended, normoactive bowel sounds and non-tender Palpation: soft Back/Spine no CVA tenderness and normal ROM Extremity normal to inspection General Extremety ED: Negative for edema General Extremity: Negative for edema Neuro oriented x3 and CN's II-XII intact bilaterally Sensorium / Orientation: alert Motor Exam: strength 5/5 throughout Psych mental status grossly normal Mood & Affect: Negative for depressed or tearful Skin no rashes or lesions noted and no wounds MDM MDM MDM Narrative Medical decision making narrative: White count is 14.6. Hemoglobin 9.6 slightly down from testing last week. She once again has no evidence of bleeding. No blood in the stool. Coags are norm al. Lactic acid is normal. Glucose of 158. No evidence of endorgan damage. Urinalysis 10-25 white cells 0 bacteria negative nitrates and she is asymptomatic from a urine infection standpoint. The urine was sent for culture. My interpretation of the chest x-ray is no acute process. Her lung sounds are clear. She continues to have a cough. The patient I do not think meets inpatient criteria at this time. We talked to TCU and they do have a bed available. Patient was noted to be tachycardic but she has not had her morning medications including metoprolol. We will find out which medicine she typically takes in the morning and give them to her. Lab Data Attestation: I reviewed the patient's lab results. Labs: Laboratory Results - last 24 hr 02/09/22 02/09/22 02/09/22 08:45 08:45 08:45 WBC 14.6 H RBC 3.51 L Hgb 9.6 L Hct 30.6 L MCV 87.2 MCH 27.4 MCHC 31.4 L RDW Std Deviation 53.6 H RDW Coeff of [place] 16.8 H Plt Count 480 H MPV 9.8 Immature Gran % (Auto) 1.100 H Neut % (Auto) 84.2 H Lymph % (Auto) 5.8 L [place] % (Auto) 8.5 Eos % (Auto) 0.2 Baso % (Auto) 0.2 Absolute Neuts (auto) 12.3 H Absolute Lymphs (auto) 0.84 Nucleated RBC % 0 PT 14.3 INR 1.1 APTT 46.4 H Sodium 140 Potassium 3.9 Chloride 107 Carbon Dioxide 26.0 Anion Gap 7 BUN 15 Creatinine 0.95 Estim Creat Clear Calc 36.73 Est GFR (MDRD) Af Amer 73 Est GFR (MDRD) Non-Af 60 BUN/Creatinine Ratio 15.8 Glucose 158 H Lactic Acid Calcium 9.3 Magnesium 1.9 Total Bilirubin 0.70 AST 90 H ALT 56 Alkaline Phosphatase 91 Troponin I High Sens 7 Total Protein 6.6 Albumin 1.7 L Globulin 4.9 H Albumin/Globulin Ratio 0.3 L Urine Color Urine Clarity Urine pH Ur Specific [place] Urine Protein Urine Glucose (UA) Urine Ketones Urine Occult Blood Urine Nitrite Urine Bilirubin Urine Urobilinogen Ur Leukocyte Esterase Urine RBC Urine WBC Ur Squamous Epith Cells Urine Bacteria Urine Mucus 02/09/22 02/09/22 08:45 10:00 WBC RBC Hgb Hct MCV MCH MCHC RDW Std Deviation RDW Coeff of [place] Plt Count MPV Immature Gran % (Auto) Neut % (Auto) Lymph % (Auto) [place] % (Auto) Eos % (Auto) Baso % (Auto) Absolute Neuts (auto) Absolute Lymphs (auto) Nucleated RBC % PT INR APTT Sodium Potassium Chloride Carbon Dioxide Anion Gap BUN Creatinine Estim Creat Clear Calc Est GFR (MDRD) Af Amer Est GFR (MDRD) Non-Af BUN/Creatinine Ratio Glucose Lactic Acid 1.1 Calcium Magnesium Total Bilirubin AST ALT Alkaline Phosphatase Troponin I High Sens Total Protein Albumin Globulin Albumin/Globulin Ratio Urine Color Yellow Urine Clarity Clear Urine pH 6.0 Ur Specific [place] 1.020 Urine Protein 15 H Urine Glucose (UA) Normal Urine Ketones Negative Urine Occult Blood 10 H Urine Nitrite Negative Urine Bilirubin Negative Urine Urobilinogen Normal Ur Leukocyte Esterase 25 H Urine RBC 0 SEEN Urine WBC 10-25 SEEN Ur Squamous Epith Cells 0 SEEN Urine Bacteria 0 SEEN Urine Mucus 0 SEEN Radiography Diagnostic Testing: Clinical Impression(s) from Imaging Studies Chest X-Ray 02/09/22 09:00 IMPRESSION: No acute abnormality is seen. Electronically Signed: Rahul Perez MD at 9:20 EDT , EKG Initial EKG: Attestation: I personally reviewed and interpreted this EKG as follows: Comments: Sinus tachycardia with a ventricular rate of 104 bpm Discharge Plan Triage Chief Complaint: General Illness ED Provider: Irvin Ledesma Dx/Rx/DC Orders Clinical Impression: Acute bronchitis, Nausea, Anemia, Leukocytosis, Weakness Prescriptions: No Action calcium carbonate [Calcium 500] 500 mg calcium (1,250 mg) tablet 1,200 mg PO BID magnesium oxide 500 mg tablet 500 mg PO DAILY zinc gluconate 50 mg tablet 50 mg PO DAILY omeprazole 20 mg capsule,delayed release(DR/EC) 20 mg PO BID metoprolol succinate [Toprol XL] 50 mg tablet extended release 24 hr 50 mg PO BID Qty: 180 3RF isosorbide mononitrate 60 MG tablet extended release 24 hr 60 mg PO DAILY amlodipine 10 MG tablet 10 mg PO DAILY Label Comments: simvastatin 20 MG tablet 20 mg PO QHS benazepril 40 MG tablet 40 mg PO DAILY Label Comments: baclofen 10 mg tablet 5 - 10 mg PO BID PRN (Reason: spasms) aspirin 81 MG tablet,delayed release (DR/EC) 81 mg PO QHS hydrocodone-acetaminophen 5-325 mg tablet 1 - 2 tab PO BID PRN (Reason: Pain) Label Comments: take 1 tablet by mouth one to two times a day if needed for pain albuterol sulfate [Ventolin HFA] 90 mcg/actuation HFA aerosol inhaler 1 - 2 puff inhalation Q4H PRN PRN (Reason: Wheezing) Qty: 1 0RF ondansetron [ondansetron] 4 mg tablet,disintegrating 8 mg PO Q8H PRN PRN (Reason: Nausea) Qty: 20 0RF potassium chloride 20 mEq tablet extended release 20 meq PO DAILY Qty: 30 0RF furosemide [Lasix] 40 mg tablet 40 mg PO DAILY PRN (Reason: swelling) Primary Care Provider: Stephanie Partida Referrals: Stephanie Partida DO [Primary Care Provider] - Disposition Disposition: Inpatient Rehab Unit/Facility Discharge Location: [facility] Transitional Care Unit
[2022-02-09] MEDS: 0.9% Normal Saline 1,000 ML 999 ML IV (08:47)
[2022-02-09 09:00] LABS: Absolute Lymphocyte Count 0.84 X10^3/uL (0.83-4.51); Absolute Neutrophil Count 12.3 X10^3/uL (2.0-7.7); Basophil# 0.03 X10^3/uL; Basophil% 0.2 % (0-1); Eosinophil# 0.03 X10^3/uL; Eosinophils% 0.2 % (0-5); Hematocrit 30.6 % (37-47); Hemoglobin 9.6 g/dL (12.0-15.0); Lymphocyte # 0.84 X10^3/ul (0.83-4.51); Lymphocyte % 5.8 % (19-41); Mean Corp Hgb Conc 31.4 g/dL (32-36); Mean Corpuscular Hgb 27.4 pg (27.0-32.0); Mean Corpuscular Volume 87.2 fL (81-99); Mean Platelet Vol. 9.8 fl (6.2-12.0); Monocyte# 1.24 X10^3/uL; Monocyte% 8.5 % (0-10); NRBC Flagged by Analyzer 0 % (0-5); Neutrophil # 12.26 X10^3/uL (2.7-7.7); Neutrophil % 84.2 % (47-70); Platelet Count 480 K/mm3 (150-450); RBC Distribution Width CV 16.8 % (11.6-14.6); RBC Distribution Width SD 53.6 fl (35.1-43.9); Red Blood Count 3.51 M/mm3 (4.2-5.4); White Blood Count 14.6 K/mm3 (4.4-11.0)
--- NOTE | 2022-02-09 09:00 | RAD_ITS ---
STUDY: X-RAY CHEST REASON FOR EXAM: Female, 81 years old. Cough TECHNIQUE: Single AP portable view of the chest. COMPARISON: Comparison is made with prior study dated 02/04/2022. FINDINGS: EKG electrodes are seen. A surgical clip is seen in the lower cervical region. The lungs are clear and expanded. There is no demonstrated pleural abnormality. Normal size heart. Normal mediastinum and brendan. Normal visualized pulmonary arteries. Normal visualized aortic arch and descending thoracic aorta. There are diffuse degenerative changes of the visualized thoracic spine. Normal visualized ribs, clavicles, and shoulders. There is no demonstrated abnormality of the visualized soft tissue structures of the upper abdomen. RAD/Chest 1 View (Portable) IMPRESSION: No acute abnormality is seen. Electronically Signed: Rahul Perez MD at 9:20 EDT ,
[2022-02-09 09:17] LABS: ALB/GLOB Ratio 0.3 RATIO (0.9-2.4); AST(SGOT) 90 U/L (15-37); Alanine Aminotransfer ALT/SGPT 56 U/L (13-56); Albumin, Serum 1.7 g/dL (3.2-5.0); Alkaline Phosphatase 91 U/L (45-117); Anion Gap 7 (5-15); BUN 15 mg/dL (7-18); BUN/Creat Ratio 15.8 RATIO (10-20); Calcium,Total 9.3 mg/dL (8.5-10.1); Chloride 107 mmol/L (98-107); Creatinine, Serum 0.95 mg/dL (0.55-1.02); EST Glomerular Filtration Rate 60 mL/min (>60); Est Glom Filt Rate - Afr Amer 73 mL/min (>60); Estimated Creatinine Clearance 36.73 ml/min; Globulin 4.9 g/dL (2.2-4.2); Glucose 158 mg/dL (74-106); Magnesium 1.9 mg/dL (1.6-2.6); Potassium 3.9 mmol/L (3.5-5.1); Protein, Total 6.6 g/dL (6.4-8.2); Sodium Level 140 mmol/L (136-145); Troponin-I HS 7 pg/mL (3.0-54.0)
[2022-02-09 09:21] LABS: Lactic Acid 1.1 mmol/L (0.4-1.9)
[2022-02-09 09:29] LABS: International Normalized Ratio 1.1; Prothrombin Time (Protime)PT. 14.3 SECONDS (11.7-14.9)
[2022-02-09 09:30] LABS: Partial Thromboplast Time 46.4 Seconds (24.1-36.2)
[2022-02-09 09:36] VITALS: BP 145/60; PULSE 99; RESP 24; TEMP 36.9; O2SAT 98
[2022-02-09 10:00] VITALS: BP 157/68; PULSE 100; RESP 25; TEMP 36.7; O2SAT 94
[2022-02-09 10:33] LABS: Bacteria 0 SEEN /hpf (None Seen); Mucous, Urine 0 SEEN /hpf (<or=2+); Red Blood Cells-Urine 0 SEEN /hpf (0-5); Squamous Epithelial Cells - UA 0 SEEN /hpf (5-10)
[2022-02-09 10:44] LABS: Color, Urine Yellow (Yellow); Glucose, Dipstick Normal (Normal); Ketone-Dipstick Negative (Negative); Leukocyte Esterase-Dipstick 25 /ul (Negative); Nitrite-Dipstick Negative (Negative); Occult Blood-Urine 10 /ul (Negative); Protein-Dipstick 15 mg/dl (Negative); Urine Bilirubin Dipstick Negative (Negative); Urine Clarity Clear (Clear); Urine Urobilinogen Normal (Normal)
--- NOTE | 2022-02-09 10:48 | CM.ED ---
JAMEE Note JAMEE was advised by that patient presents to the ED and voiced concerns regarding her being home alone and needing rehab. JAMEE called Jordyn at TCU. She will review chart. JAMEE received voice mail from [facility] J[facility] and she said that they will accept patient but need COVID test and also med list tubed to TCU. JAMEE met with patient and her friend, Izzy. Patient said that she feels that she needs rehab as she has been weak at home. She voiced she is doing not so good at home. Patient said that her first choice was TCU . Patient said that she has been there before and I like them.. they were so good. JAMEE will update MD and RN. JAMEE updated MD. Waiting for urine screen to return to see if patient is admitted or going to TCU. JAMEE updated Jordyn that covid is negative and waiting for urine screen. Yvonne DAVIDSON
[2022-02-09 10:54] LABS: White Blood Cells 10-25 SEEN /hpf (0-5)
--- NOTE | 2022-02-09 11:23 | CM.ED ---
Per Charge Irene, patient is cleared to go to TCU. JAMEE called Jordyn and updated her patient is cleared to come to TCU. JAMEE spoke to CATRACHITO Parker and requested RN to RN. JAMEE spoke to discharge planner irene and requested that patient's med list get sent, via tube system to TCU. Plan: TCU Yvonne DAVIDSON
--- NOTE | 2022-02-09 11:31 | ED.RN ---
REPORT CALLED TO TCU. ALL QUESTIONS ANSWERED.
== END 2022-02-09 11:35 ==
PROVIDERS: Emergency Provider Emergency Medicine; PCP Family Medicine; Visit Provider Emergency Medicine
DX: J20.9 Acute bronchitis, unspecified (principal); Z87.891 Personal history of nicotine dependence; I25.10 Atherosclerotic heart disease of native coronary artery without angina pectoris; R11.0 Nausea; D72.829 Elevated white blood cell count, unspecified; M54.9 Dorsalgia, unspecified; E78.5 Hyperlipidemia, unspecified; R53.1 Weakness; D64.9 Anemia, unspecified; I10 Essential (primary) hypertension; Z87.440 Personal history of urinary (tract) infections; Z86.718 Personal history of other venous thrombosis and embolism; R05.9 Cough, unspecified; Z95.5 Presence of coronary angioplasty implant and graft
CPT/HCPCS: 71045; 80053; 81001; 83605; 83735; 84484; 85025; 85610; 85730; 87040; 87086; 87811; 93005; 96360; 99284; J7030

== ENCOUNTER 2022-02-09 11:45 | Inpatient (IN) | payer MEDICARE, OTHER, SELFPAY ==
[2022-02-09 11:58] VITALS: BP 139/71; PULSE 109; RESP 18; TEMP 37.5; O2SAT 93
[2022-02-09 12:13] VITALS: BMI 31.5
[2022-02-09] MEDS: Potassium Chloride Oral Tablet 20 MEQ PO (13:31)
[2022-02-09] MEDS: Isosorbide Mononitrate 60 MG Tablet PO (13:31)
[2022-02-09] MEDS: amLODIPine 10 MG Tablet PO (13:32)
[2022-02-09] MEDS: Magnesium Chloride 64 MG Delay Rel.Tablet 128 MG PO (13:32)
[2022-02-09] MEDS: Lisinopril 40 MG Tablet PO (13:32)
--- NOTE | 2022-02-09 14:02 | NURSING ---
message left with Dr Partida regarding pneumonia vaccines, awaiting return call
[2022-02-09] MEDS: 0.9% Normal Saline 1,000 ML 999 ML IV (17:40)
[2022-02-09] MEDS: 0.9% Saline Lock 10 ML Syringe IV (17:41)
[2022-02-09] MEDS: Calcium (Elemental) 500 MG Tablet PO (17:51)
[2022-02-09] MEDS: Senna/Docusate Sodium 1 Tablet PO (17:51)
[2022-02-09] MEDS: Pantoprazole Sodium 20 MG Tablet PO (17:51)
[2022-02-09] MEDS: Polyethylene Glycol 3350 17 GM PACKET PO (17:51)
[2022-02-09 17:52] VITALS: BP 123/61; PULSE 129
[2022-02-09] MEDS: Metoprolol(XL)Succ 50 MG Tablet PO (17:52)
--- NOTE | 2022-02-09 19:19 | NURSING ---
Admitted today and able to walk from cot to bed. A/Ox3. Here for general weakness and failure to thrive. Patient reports later that isn't feeling well and feels warm. Also reports hasn't had BM in several days and has persistent cough. VS 123/61 93% on RA, [address] Owens ordered SS enema, KUB, respiratory panel, and bolus of IV fluids. Awaiting results.
--- NOTE | 2022-02-09 19:29 | HP.PCM_ITS ---
HPI - General General Date of Admission: 02/09/22 Date of Service: 02/09/22 Chief Complaint: Here for rehab. HPI Narrative 02/09/2022 GABRIELA GAMBOA, is a 81 Female who presents to [facility] Emergency Department with generalized illness. Weakness, recent hospitalization for urinary tract infection. Recent ED visit for bronchitis. Nausea, not eating well for 2 weeks. Cough, back pain, posttussive emesis, productive cough. Fever 102. WBC 14.6, Hemoglobin 9.6, coags normal. Lactic acid normal, glucose 158, Urinalysis negative, urine culture sent. Chest X-ray negative. 02/09/2022 Admit to TCU. Resident arrives with fever of 102. No bowel movement for 3 days. She is nauseous, continues to feel unwell. [facility] Medical History Abnormal mammogram of left breast Atherosclerotic heart disease of [place] coronary artery without angina pectoris Cancer Chronic back pain Debility Deep vein thrombosis of left lower extremity (04/2020) Dislocation of left ankle joint Essential hypertension Former smoker Hyperlipidemia Hypertension Knee pain, bilateral Neck pain Osteoarthritis Renal calculi Secondary pulmonary arterial hypertension Home Medications isosorbide mononitrate 60 mg tablet,extended release 24 hr 60 mg PO DAILY chest pain 07/09/16 [History Last Taken 04/10/20] amlodipine 10 mg tablet 10 mg PO DAILY blood pressure 12/10/16 [History Last Taken 04/10/20] benazepril 40 mg tablet 40 mg PO DAILY blood pressure 12/10/16 [History Last Taken 04/29/18] simvastatin 20 mg tablet 20 mg PO QHS cholesterol 12/10/16 [History Last Taken 04/09/20] aspirin 81 mg tablet,delayed release 81 mg PO QHS heart 04/10/20 [History Last Taken 04/10/20] calcium carbonate 500 mg calcium (1,250 mg) tablet (Calcium 500) 1,200 mg PO BID Supplement 08/25/20 [History Last Taken Unknown] hydrocodone-acetaminophen 5-325mg 5mg-325mg 1 - 2 tab PO BID PRN Pain 02/13/21 [ History Last Taken Unknown] magnesium oxide 500 mg tablet 500 mg PO DAILY supplement 03/31/21 [History Last Taken Unknown] zinc gluconate 50 mg tablet 50 mg PO DAILY Health maintenence 03/31/21 [History Last Taken Unknown] omeprazole 20 mg capsule,delayed release 20 mg PO BID gerd 06/22/21 [History Last Taken Unknown] baclofen 10 mg tablet 5 - 10 mg PO BID PRN spasms 12/28/21 [History Last Taken U nknown] albuterol sulfate 90 mcg/actuation aerosol inhaler (Ventolin HFA) 1 - 2 puff inhalation Q4H PRN PRN Wheezing ##1 02/04/22 [Rx Last Taken Unknown] ondansetron 4 mg disintegrating tablet 8 mg PO Q8H PRN PRN Nausea #20 tabs 02/04/22 [Rx Last Taken Unknown] furosemide 40 mg tablet (Lasix) 40 mg PO DAILY PRN swelling 02/09/22 [History Last Taken Unknown] metoprolol succinate 50 mg tablet,extended release 24 hr (Toprol XL) 50 mg PO BID BP 02/09/22 [History Last Taken Unknown] potassium chloride 20 mEq tablet,extended release 20 meq PO DAILY Hypokalemia 02/09/22 [History Last Taken Unknown] Allergy/AdvReac Type Severity Reaction Status Date / Time No Known Allergies Allergy Verified 02/09/22 08:08 Family History Grandmother Breast cancer Surgical History H/O parathyroidectomy (2011) History of ankle surgery History of coronary artery stent placement (09/09/03) History of herniorrhaphy History of open reduction and internal fixation (ORIF) procedure (03/2020) Social History household members: none [facility]: [facility] current occupational status: retired pets and animals: Yes (dog) Smoking Status: Former smoker alcohol intake: current ROS Constitutional Constitutional: Reports fever(s), poor appetite and weakness; Denies chills or weight gain ENT HEENT: Denies headache(s), nasal congestion or nasal discharge Cardiovascular Cardiovascular: Denies chest pain or palpitations Respiratory/Chest Respiratory/Chest: Denies cough, excessive phlegm production or shortness of breath with exertion Gastrointestinal Gastrointestinal: Reports constipation, nausea and vomiting; Denies abdominal pain Genitourinary Genitourinary: Denies dysuria Musculoskeletal Musculoskeletal: Denies joint pain or joint swelling Integumentary Integumentary: Denies rash or wounds Neurologic Neurologic: Denies focal weakness, numbness or tingling Psychiatric Psychiatric: Denies anxiety, auditory hallucinations, depression, homicidal id eation or suicidal ideation Vital Signs Vital Signs Vital Signs: 02/09/22 11:58 02/09/22 11:58 02/09/22 17:52 Temperature 99.5 F H Temperature Source Temporal Pulse Rate 109 H 129 H Pulse Rhythm Regular Pulse Strength Normal (2+) Respiratory Rate 18 Respiratory Effort Normal Non-Labored Respiratory Depth Normal Respiratory Pattern Normal Blood Pressure 139/71 H 123/61 H Blood Pressure Mean 93 Blood Pressure Source Monitor Blood Pressure Position Semi-Fowlers Blood Pressure Location Right Arm Pulse Ox 93 Oxygen Delivery Method Room Air Room Air Weight Weight: 78.159 kg Body Mass Index (BMI) 31.5 Physical Exam Const alert General Appearance: cooperative HEENT normocephalic Eyes PERRL and EOMs intact bilaterally Neck supple, no JVD and no carotid bruits Resp normal respiratory effort, normal air movement and clear to auscultation bilaterally Cardio regular rate and regular rhythm GI normal to inspection, nondistended, normoactive bowel sounds, non-tender and non-distended Extremity normal capillary refill General Extremity: Negative for edema Skin no rashes or lesions noted General Skin Exam: no breakdown Psych affect normal Appearance: appropriate Assessment & Plan Assessment/Plan (1) Debility: (2) Fever: (3) Urinary tract infection: (4) Nausea & vomiting: (5) Appetite loss: (6) Coronary artery disease: (7) Hypertension: (8) Hyperlipidemia: (9) Hypomagnesemia: (10) Gastroesophageal reflux disease: (11) Muscle spasm: (12) Hypokalemia: (13) Edema: (14) Chronic obstructive pulmonary disease: PLAN: Plan 81 year old female with below past medical history presented to Emergency Department with weakness, febrile illness, admitted to TCU with debility, here for rehabilitation, strengthening, prior to discharge home alone. * Debility - PT/OT. * Pain - Tylenol 1000mg q6h prn pain (1-10). * Bowel - Miralax 17gm daily, senna/colace 1 tablet bid, soap suds enema x 1, KUB. * Adult immunization - Administer pneumonia vaccine, covid19 vaccine, flu vaccine. * DVT prophylaxis - Hold, anemia. * Fever - WBC 14.6, blood cultures pending, urine culture pending, Chest X-ray negative, covid19 negative, respiratory panel pending. * Hypertension - Metoprolol succinate 50mg bid, Lisinopril 40mg daily, Amlodipine 10mg daily. * Coronary artery disease - Metoprolol succinate 50mg bid, Lisinopril 40mg daily, Imdur 60mg daily, Aspirin 81mg daily. * Hyperlipidemia - Atorvastatin 10mg qhs. * Nausea - Zofran odt 8mg q8h prn. * GERD - Pantoprazole 20mg bid. * Hypokalemia - KCL 20meq daily.
--- NOTE | 2022-02-09 19:44 | RAD_ITS ---
EXAM: XR ABDOMEN, 1 VIEW CLINICAL INDICATION: NAUSEA/VOMITING TECHNIQUE: Frontal supine view of the abdomen/pelvis. This report was created using [employer] report generation technology. COMPARISON: None. FINDINGS: LOWER THORAX: No acute pathology. GASTROINTESTINAL TRACT: Unremarkable. Non-obstructive. No bowel or stomach distention. ORGANS: Unremarkable as visualized. No organomegaly. No abnormal calcifications. BONES/JOINTS: Degenerative findings of the hips and lumbar spine. SOFT TISSUES: No acute pathology. VASCULATURE: There are atherosclerotic vascular calcifications. RAD/Abdomen Single View IMPRESSION: No acute findings. Electronically Signed: Ender Cool MD at 20:27 EDT ,
[2022-02-09] MEDS: Acetaminophen 500 MG Tablet 1000 MG PO (21:25)
[2022-02-09] MEDS: Aspirin E.C. 81 MG Tablet PO (21:27)
[2022-02-09] MEDS: Atorvastatin Calcium 10 MG Tablet PO (21:27)
[2022-02-09] MEDS: 0.9% Normal Saline 1,000 ML 75 ML IV (21:29)
--- NOTE | 2022-02-09 21:54 | US_ITS ---
RENAL ULTRASOUND CLINICAL HISTORY: Fever, recent pylelonephritis, hydroureter.. TECHNIQUE: Beard scale and limited color imaging of the kidneys, bladder, inferior vena cava, and aorta. COMPARISON: CT abdomen pelvis 02/01/2022 FINDINGS: The right kidney measures 12.8 cm. The echogenicity is normal. There is no hydronephrosis or perinephric collection. Cystic changes in the right kidney measuring up to 3.2 cm in the superior pole. Hyperechoic 6 mm structure in the inferior pole right kidney. The left kidney measures 19.6 cm. Severe left hydronephrosis with cortical thinning, similar compared to the prior. Bladder is decompressed, limiting evaluation, prevoid bladder volume = 10 cc. US/Kidney and Bladder IMPRESSION: 1. Severe left hydronephrosis with cortical thinning, similar compared to the prior. 2. Right renal cystic changes measuring up to 3.2 cm. 3. Hyperechoic 6 mm structure in the inferior pole of the right kidney, may represent angiomyolipoma or nonobstructive calculus. Electronically Signed: Jr Alcantara MD at 2:40 EDT ,
--- NOTE | 2022-02-09 22:35 | NURSING ---
Patient's temperature increased to 102.6 at HS. Tylenol administered. Continues with IV fluids 75ml/hour. Will continue to monitor.
[2022-02-10] VITALS (8 sets, daily range): BP systolic 115–127; BP diastolic 57–61; PULSE 84–103; RESP 18–20; TEMP 36.9–38.6; O2SAT 93–95
--- NOTE | 2022-02-10 01:21 | NURSING ---
Patient called to go to bathroom. Pillowcase, fitted sheet noted to be saturated with sweat. Patient stated she was feeling better. Bedding changed, patient toileted and assisted back to bed. Temperature obtained, 98.0 orally. IV fluids running at 75ml/hour via SL left wrist. Will continue to monitor.
[2022-02-10] MEDS: Acetaminophen 500 MG Tablet 1000 MG PO ×2 (04:23→17:23)
[2022-02-10] MEDS: Polyethylene Glycol 3350 17 GM PACKET PO (04:25)
[2022-02-10] MEDS: Senna/Docusate Sodium 1 Tablet PO (04:26)
[2022-02-10] MEDS: Metoprolol(XL)Succ 50 MG Tablet PO ×2 (04:26→17:25)
[2022-02-10] MEDS: Isosorbide Mononitrate 60 MG Tablet PO (04:26)
[2022-02-10] MEDS: Lisinopril 40 MG Tablet PO (04:26)
[2022-02-10] MEDS: amLODIPine 10 MG Tablet PO (04:27)
[2022-02-10] MEDS: Pantoprazole Sodium 20 MG Tablet PO ×2 (04:27→17:25)
[2022-02-10 05:35] LABS: Absolute Lymphocyte Count 0.72 X10^3/uL (0.83-4.51); Absolute Neutrophil Count 8.8 X10^3/uL (2.0-7.7); Basophil# 0.03 X10^3/uL; Basophil% 0.3 % (0-1); Eosinophil# 0.05 X10^3/uL; Eosinophils% 0.5 % (0-5); Hematocrit 27.3 % (37-47); Hemoglobin 8.7 g/dL (12.0-15.0); Lymphocyte # 0.72 X10^3/ul (0.83-4.51); Lymphocyte % 6.7 % (19-41); Mean Corp Hgb Conc 31.9 g/dL (32-36); Mean Corpuscular Hgb 27.6 pg (27.0-32.0); Mean Corpuscular Volume 86.7 fL (81-99); Mean Platelet Vol. 9.5 fl (6.2-12.0); Monocyte# 1.02 X10^3/uL; Monocyte% 9.6 % (0-10); NRBC Flagged by Analyzer 0 % (0-5); Neutrophil # 8.75 X10^3/uL (2.7-7.7); Neutrophil % 81.9 % (47-70); Platelet Count 421 K/mm3 (150-450); RBC Distribution Width CV 16.5 % (11.6-14.6); RBC Distribution Width SD 52.2 fl (35.1-43.9); Red Blood Count 3.15 M/mm3 (4.2-5.4); White Blood Count 10.7 K/mm3 (4.4-11.0)
[2022-02-10 05:57] LABS: Anion Gap 7 (5-15); BUN 11 mg/dL (7-18); BUN/Creat Ratio 15.7 RATIO (10-20); Calcium,Total 8.2 mg/dL (8.5-10.1); Chloride 109 mmol/L (98-107); EST Glomerular Filtration Rate 85 mL/min (>60); Est Glom Filt Rate - Afr Amer 103 mL/min (>60); Glucose 154 mg/dL (74-106); Sodium Level 139 mmol/L (136-145)
--- NOTE | 2022-02-10 06:46 | NURSING ---
Patient's temperature orally at this time is 98.4. Will continue to monitor.
[2022-02-10] MEDS: 0.9% Saline Lock 10 ML Syringe IV (08:42)
[2022-02-10] MEDS: oxyCODONE 5 MG Tablet PO ×2 (08:48→23:40)
[2022-02-10] MEDS: Potassium Chloride Oral Tablet 20 MEQ PO (08:59)
--- NOTE | 2022-02-10 11:36 | CASEMGMT ---
Social Work See attached assessment for completed social work assessment details. This social media manager met with patient in room. Introduced self and social media manager role. Patient agreeable to speak with this social media manager. Patient with previous stay on the Transitional Care Unit, per chart review. This social media manager able to confirm demographic information. Patient would like Jo Castanon, friend ([phone]) added to patient chart and patient [id number], Izzy Monte removed from patient chart, this social media manager updated demographic information per patient request. Patient reports that Jo lives in [place], [place]. Patient has HCPOA and LW documents completed with Jo Castanon to be patient Health Care Power of Utility Teller, documents on file. Patient plans to discharge to home alone. Patient wishes to be a DNRCC. This social media manager having DNRCC form signed by patient. MOLST form stays the same from pervious stay and reviewed with patient. Patient with no further questions. Social Work to continue to follow. PLAN: Home alone. Claudine LAZCANO, CALEBS
[2022-02-10] MEDS: 0.9% Normal Saline 1,000 ML 75 ML IV (11:53)
[2022-02-10] MEDS: Tuberculin,Purif.prot.deriv. 50 TU/ML Vial 0.1 ML ID (11:57)
[2022-02-10] MEDS: Benzonatate 100 MG Capsule PO ×2 (17:24→23:40)
[2022-02-10] MEDS: Albuterol Sulfate 8 gm Inhaler (60 puffs) 2 PUFF INHALATION (17:25)
--- NOTE | 2022-02-10 17:57 | CON.PCM_ITS ---
Assessment & Plan Assessment/Plan (1) Nausea & vomiting: PLAN: The differential diagnosis for nausea vomiting could be antibiotic associa parag gastritis secondary to recent antibiotic for UTI and bronchitis. Nausea vomiting also can be secondary to peptic ulcer disease, erosive esophagitis, bile induced gastritis. We will evaluate upper GI tract for any structural or chemical abnormalities. She was explained alternatives, risk, benefits including understanding bleeding, infection, sepsis, perforation, need for emergent . She will have an ASA of 3. (2) Anemia: PLAN: We will evaluate upper GI tract for any signs of acute or chronic blood loss anemia. If this is negative she may need a colonoscopy for further evaluation. HPI Consult Data Date of Consult: 02/10/22 HPI Narrative Reason for Consultation: anemia HPI Narrative: GABRIELA GAMBOA, is a 81 F who originally presented to the ED?81-year-old woman with history of urinary tract infection. She was placed on cephalexin. She also has atherosclerotic heart disease, hypertension and hyperlipidemia. She was brought to the emergency department because of confusion.? She denies subjective or documented fever.? She denies shaking chills.? She denies vomiting diarrhea.? She denies cardiac respiratory symptoms.? She does complain of back/flank pain.? She does report urgency and frequency.? She has not noted blood in her urine.? Abdomen/Pelvis CT? 02/01/22 10:37 IMPRESSION: ? Severe left hydronephrosis and hydroureter in the proximal and mid segments is seen that demonstrates prominence in comparison to the prior study with wall enhancement, stranding of the perirenal fat planes visualized in the left could represent infection. ? Subtle simple cysts visualized in the right kidney. ? Distended gallbladder but no evidence of acute cholecystitis. ? Fibroid uterus seen. ? Degenerative bone changes seen. ? While in the hospital she was diagnosed with acute bronchitis and was sent home on antibiotic therapy. She currently is in the transitional care unit on antibiotics for increased white blood cell count, fever and tachycardia. I was asked to see her due to a worsening anemia. All other 16 review of systems are negative except as pertinent positive mentioned HPI. [facility] Medical History Abnormal mammogram of left breast Atherosclerotic heart disease of [place] coronary artery without angina pectoris Cancer Chronic back pain Debility Deep vein thrombosis of left lower extremity (04/2020) Dislocation of left ankle joint Essential hypertension Former smoker Hyperlipidemia Hypertension Knee pain, bilateral Neck pain Osteoarthritis Renal calculi Secondary pulmonary arterial hypertension Home Medications isosorbide mononitrate 60 mg tablet,extended release 24 hr 60 mg PO DAILY chest pain 07/09/16 [History Last Taken 04/10/20] amlodipine 10 mg tablet 10 mg PO DAILY blood pressure 12/10/16 [History Last Taken 04/10/20] benazepril 40 mg tablet 40 mg PO DAILY blood pressure 12/10/16 [History Last Taken 04/29/18] simvastatin 20 mg tablet 20 mg PO QHS cholesterol 12/10/16 [History Last Taken 04/09/20] aspirin 81 mg tablet,delayed release 81 mg PO QHS heart 04/10/20 [History Last Taken 04/10/20] calcium carbonate 500 mg calcium (1,250 mg) tablet (Calcium 500) 1,200 mg PO BID Supplement 08/25/20 [History Last Taken Unknown] hydrocodone-acetaminophen 5-325mg 5mg-325mg 1 - 2 tab PO BID PRN Pain 02/13/21 [History Last Taken Unknown] magnesium oxide 500 mg tablet 500 mg PO DAILY supplement 03/31/21 [History Last Taken Unknown] zinc gluconate 50 mg tablet 50 mg PO DAILY Health maintenence 03/31/21 [History Last Taken Unknown] omeprazole 20 mg capsule,delayed release 20 mg PO BID gerd 06/22/21 [History Last Taken Unknown] baclofen 10 mg tablet 5 - 10 mg PO BID PRN spasms 12/28/21 [History Last Taken Unknown] albuterol sulfate 90 mcg/actuation aerosol inhaler (Ventolin HFA) 1 - 2 puff inhalation Q4H PRN PRN Wheezing ##1 02/04/22 [Rx Last Taken Unknown] ondansetron 4 mg disintegrating tablet 8 mg PO Q8H PRN PRN Nausea #20 tabs 02/04/22 [Rx Last Taken Unknown] furosemide 40 mg tablet (Lasix) 40 mg PO DAILY PRN swelling 02/09/22 [History Last Taken Unknown] metoprolol succinate 50 mg tablet,extended release 24 hr (Toprol XL) 50 mg PO BID BP 02/09/22 [History Last Taken Unknown] potassium chloride 20 mEq tablet,extended release 20 meq PO DAILY Hypokalemia 0 02/09/22 [History Last Taken Unknown] Allergy/AdvReac Type Severity Reaction Status Date / Time No Known Allergies Allergy Verified 02/09/22 08:08 Family History Grandmother Breast cancer Surgical History H/O parathyroidectomy (2011) History of ankle surgery History of coronary artery stent placement (09/09/03) History of herniorrhaphy History of open reduction and internal fixation (ORIF) procedure (03/2020) Social History household members: none [facility] current occupational status: retired pets and animals: Yes (dog) Smoking Status: Former smoker alcohol intake: current ROS Constitutional Constitutional: Reports fever(s), poor appetite and weakness; Denies chills or weight gain ENT HEENT: Denies headache(s), nasal congestion or nasal discharge Cardiovascular Cardiovascular: Denies chest pain or palpitations Respiratory/Chest Respiratory/Chest: Denies cough, excessive phlegm production or shortness of breath with exertion Gastrointestinal Gastrointestinal: Reports constipation, nausea and vomiting; Denies abdominal pain Genitourinary Genitourinary: Denies dysuria Musculoskeletal Musculoskeletal: Denies joint pain or joint swelling Integumentary Integumentary: Denies rash or wounds Neurologic Neurologic: Denies focal weakness, numbness or tingling Psychiatric Psychiatric: Denies anxiety, auditory hallucinations, depression, homicidal ideation or suicidal ideation Physical Exam Const alert General Appearance: cooperative HEENT normocephalic Eyes PERRL and EOMs intact bilaterally Neck supple, no JVD and no carotid bruits Resp normal respiratory effort, normal air movement and clear to auscultation bilaterally Cardio regular rate and regular rhythm GI normal to inspection, nondistended, normoactive bowel sounds, non-tender and non-distended Extremity normal capillary refill General Extremity: Negative for edema Skin no rashes or lesions noted General Skin Exam: no breakdown Psych affect normal Appearance: appropriate Lab / Micro Data Result Diagrams: 02/11/22 05:29 02/10/22 05:15 Labs: Laboratory Results - last 24 hr 02/10/22 18:08: ESR 96 H 02/10/22 18:08: C-React Prot Ext Range 176.00 H 02/11/22 05:29: WBC 11.4 H, RBC 3.29 L, Hgb 9.1 L, Hct 28.2 L, MCV 85.7, MCH 27. 7, MCHC 32.3, RDW Std Deviation 51.9 H, RDW Coeff of [place] 16.5 H, Plt Count 479 H , MPV 9.3, Immature Gran % (Auto) 0.600, Neut % (Auto) 83.3 H, Lymph % (Auto) 6.5 L, Nicholas % (Auto) 8.7, Eos % (Auto) 0.6, Baso % (Auto) 0.3, Absolute Neuts (auto) 9.5 H, Absolute Lymphs (auto) 0.74 L, Nucleated RBC % 0 Micro: Microbiology 02/10/22 17:55 Stool Stool Occult Blood (MILLI) - Final Occult Blood Positive Charges/Coding Visit Charges Inpatient E&M: 66767 Init Hosp L2
--- NOTE | 2022-02-10 18:15 | NURSING ---
Addendum entered by Arianne Zimmer 02/10/22 20:39: Updated Dr. Cuba @1999 on results of ESR, CRP, and occult blood. Order for chest CT, abd/pelvis CT, both with contrast. Verbal order to consult infectious disease and gastro in the morning. Order placed. Original Note: Updated Dr. Cuba on fever and that patient felt like she was retaining fluid. No edema noted on assessment. Verbal orders to DC IVF, lab orders for repeat blood cultures, ESR, CRP, AMBERLY, and ANCA.
[2022-02-10 18:34] LABS: Erythrocyte Sedimentation Rate 96 mm/hr (0-30)
[2022-02-10] MEDS: Atorvastatin Calcium 10 MG Tablet PO (23:41)
[2022-02-11 05:45] LABS: Absolute Lymphocyte Count 0.74 X10^3/uL (0.83-4.51); Absolute Neutrophil Count 9.5 X10^3/uL (2.0-7.7); Basophil# 0.03 X10^3/uL; Basophil% 0.3 % (0-1); Eosinophil# 0.07 X10^3/uL; Eosinophils% 0.6 % (0-5); Hematocrit 28.2 % (37-47); Hemoglobin 9.1 g/dL (12.0-15.0); Lymphocyte # 0.74 X10^3/ul (0.83-4.51); Lymphocyte % 6.5 % (19-41); Mean Corp Hgb Conc 32.3 g/dL (32-36); Mean Corpuscular Hgb 27.7 pg (27.0-32.0); Mean Corpuscular Volume 85.7 fL (81-99); Mean Platelet Vol. 9.3 fl (6.2-12.0); Monocyte# 0.99 X10^3/uL; Monocyte% 8.7 % (0-10); NRBC Flagged by Analyzer 0 % (0-5); Neutrophil # 9.49 X10^3/uL (2.7-7.7); Neutrophil % 83.3 % (47-70); Platelet Count 479 K/mm3 (150-450); RBC Distribution Width CV 16.5 % (11.6-14.6); RBC Distribution Width SD 51.9 fl (35.1-43.9); Red Blood Count 3.29 M/mm3 (4.2-5.4); White Blood Count 11.4 K/mm3 (4.4-11.0)
[2022-02-11] MEDS: Acetaminophen 500 MG Tablet 1000 MG PO ×2 (05:57→18:18)
[2022-02-11 05:58] VITALS: BP 144/67; PULSE 111
[2022-02-11] MEDS: Pantoprazole Sodium 20 MG Tablet PO ×2 (05:58→18:19)
[2022-02-11] MEDS: Metoprolol(XL)Succ 50 MG Tablet PO ×2 (05:58→18:19)
[2022-02-11] MEDS: Lisinopril 40 MG Tablet PO (05:58)
[2022-02-11] MEDS: Isosorbide Mononitrate 60 MG Tablet PO (05:58)
[2022-02-11] MEDS: amLODIPine 10 MG Tablet PO (05:58)
[2022-02-11] MEDS: Benzonatate 100 MG Capsule PO ×2 (05:59→21:22)
--- NOTE | 2022-02-11 06:08 | NURSING ---
Patient with temperature 101.4F orally. Tylenol administered. Will continue to monitor.
--- NOTE | 2022-02-11 06:51 | NURSING ---
Patient called out stating she was just too hot. Tylenol administered recently. Temperature currently 100.0F orally. Cool rags applied to forehead, neck. Will continue to monitor.
[2022-02-11] MEDS: Potassium Chloride Oral Tablet 20 MEQ PO (08:02)
--- NOTE | 2022-02-11 09:11 | NURSING ---
Called and spoke with staff at Dr. Armas's office, notified them of consult.
[2022-02-11] MEDS: levoFLOXacin IV 750 MG/150 ML BAG 100 MG IV (09:17)
[2022-02-11] MEDS: 0.9% Saline Lock 10 ML Syringe IV (09:29)
[2022-02-11 09:38] VITALS: PULSE 86; RESP 18; O2SAT 94
--- NOTE | 2022-02-11 11:11 | NURSING ---
OFFICE CALLED AND STATED THE WILL BE UP TODAY TO SEE PT AND WANTED PT NPO NOW FOR A EGD TODAY. RN AND PT AWARE.
--- NOTE | 2022-02-11 11:41 | NURSING ---
Asked patient if RN could update someone in her family about new orders/meds/results, she declined.
--- NOTE | 2022-02-11 14:23 | PHA.CONS_ITS ---
TCU RX Drug Regimen Review Subjective: TCU Admission. 81 YOF presented to ER with generalized illness. Admitted to the hospital with weakness and febrile ilness. Admitted to TCU with debility for rehabilitation and strengthening. Objective: Allergies No Known Allergies Allergy (Verified 02/09/22 08:08) Current Medications Generic Name Dose Route Start Last Admin Trade Name Freq PRN Reason Stop Dose Admin Acetaminophen 1,000 mg 02/10/22 07:44 02/11/22 05:57 Acetaminophen 500 Mg Tablet PO 1,000 mg Q6H PRN PRN Administration Pain Score 1-3 Albuterol Sulfate 2 puff 02/10/22 16:22 02/10/22 17:25 Albuterol Sulfate 8 Gm Inhaler (60 Puffs) INHALATION 2 puff Q4H PRN PRN Administration SOB &/OR WHEEZING Amlodipine Besylate 10 mg 02/09/22 12:15 02/11/22 05:58 Amlodipine 10 Mg Tablet PO 10 mg DAILY NISHA Administration Aspirin 81 mg 02/09/22 22:00 02/10/22 20:50 Aspirin E.C. 81 Mg Tablet PO Not Given QHS NISHA Atorvastatin Calcium 10 mg 02/09/22 22:00 02/10/22 23:41 Atorvastatin Calcium 10 Mg Tablet PO 10 mg QHS NISHA Administration Benzonatate 100 mg 02/10/22 16:30 02/11/22 05:59 Benzonatate 100 Mg Capsule PO 02/24/22 16:31 100 mg TID NISHA Administration Guaifenesin 10 ml 02/10/22 16:22 Guaifenesin Dm 10 Ml Udc PO Q6H PRN PRN COUGH/CONGESTION Sodium Chloride 250 mls @ 15 mls/hr 02/09/22 12:22 02/11/22 11:13 IV 0 mls/hr .[id number] PRN Infusion Saline Flush Sodium Chloride 250 mls @ 15 mls/hr 02/09/22 12:22 IV .[id number] PRN Additional IVPB Infusion Levofloxacin 750 mg in 150 mls @ 100 mls/hr 02/13/22 10:00 Levaquin Iv IV 02/17/22 11:29 Q48 NISHA Influenza Virus Vaccine Quadrival 0.5 ml 02/12/22 10:00 Flu Vacc [id number](6mos Up)/Pf 60 Mcg/0.5 Ml Syringe IM 02/12/22 10:01 .ONCE ONE Isosorbide Mononitrate 60 mg 02/09/22 12:15 02/11/22 05:58 Isosorbide Mononitrate 60 Mg Tablet PO 60 mg DAILY NISHA Administration Lisinopril 40 mg 02/09/22 12:15 02/11/22 05:58 Lisinopril 40 Mg Tablet PO 40 mg DAILY NISHA Administration Metoprolol Succinate 50 mg 02/09/22 18:00 02/11/22 05:58 Metoprolol(Xl)Succ 50 Mg Tablet PO 50 mg BID NISHA Administration Ondansetron HCl 8 mg 02/09/22 12:10 Ondansetron Odt 4 Mg Tablet PO Q8H PRN PRN Nausea Oxycodone HCl 5 mg 02/10/22 07:44 02/10/22 23:40 Oxycodone 5 Mg Tablet PO 5 mg Q4H PRN PRN Administration Pain Score 4-10 Pantoprazole Sodium 20 mg 02/09/22 18:00 02/11/22 05:58 Pantoprazole Sodium 20 Mg Tablet PO 20 mg BID NISHA Administration Pneumococcal 20-Valent Conj Vacc 0.5 ml 02/12/22 10:00 Pneumococcal Vaccine 20 Valent 0.5 Ml Syringe IM 02/12/22 10:01 .ONCE ONE Polyethylene Glycol 17 gm 02/09/22 17:00 02/11/22 06:08 Polyethylene Glycol 3350 17 Gm Packet PO Not Given DAILY NISHA Potassium Chloride 20 meq 02/09/22 12:15 02/11/22 08:02 Potassium Chloride Oral Tablet 20 Meq PO 20 meq DAILYCM NISHA Administration Senna/Docusate Sodium 1 tablet 02/09/22 18:00 02/11/22 05:58 Senna/Docusate Sodium 1 Tablet PO Not Given BID NISHA Sodium Chloride 10 - 40 ml 02/09/22 12:22 02/11/22 09:29 0.9% Saline Lock 10 Ml Syringe IV 20 ml UD PRN Administration SALINE FLUSH Tuberculin PPD 0.1 ml 02/17/22 10:00 Tuberculin,Purif.Prot.Deriv. 50 Tu/Ml Vial ID 02/17/22 10:01 X1 ONE Problem List (Last Reviewed 02/09/22 @ 19:[address] Iglesia [place] MD) Chronic obstructive pulmonary disease (Chronic) Edema (Acute) Hypokalemia (Acute) Muscle spasm (Acute) Gastroesophageal reflux disease (Acute) Hypomagnesemia (Acute) Hyperlipidemia (Acute) Hypertension (Chronic) Coronary artery disease (Acute) Appetite loss (Acute) Nausea & vomiting (Acute) Urinary tract infection (Acute) Fever (Acute) Debility (Acute) Vital Signs Temp Pulse Resp BP Pulse Ox O2 Del Method 98.7 F 86 18 144/67 H 94 Room Air 02/10/22 19:00 02/11/22 09:38 02/11/22 09:38 02/11/22 05:58 02/11/22 09:38 02/11/22 09:38 Oxygen Delivery Method Room Air Weight: 78.159 kg Body Mass Index (BMI) 31.5 Sodium 139 mmol/L (136-145) 02/10/22 05:15 Potassium 4.0 mmol/L (3.5-5.1) 02/10/22 05:15 Chloride 109 mmol/L (98-107) H 02/10/22 05:15 Carbon Dioxide 23.0 mmol/L (21.0-32.0) 02/10/22 05:15 Anion Gap 7 (5-15) 02/10/22 05:15 BUN 11 mg/dL (7-18) 02/10/22 05:15 Creatinine 0.70 mg/dL (0.55-1.02) 02/10/22 05:15 Est GFR (MDRD) Af Amer 103 mL/min (>60) 02/10/22 05:15 Est GFR (MDRD) Non-Af 85 mL/min (>60) 02/10/22 05:15 BUN/Creatinine Ratio 15.7 RATIO (10-20) 02/10/22 05:15 Glucose 154 mg/dL (74-106) H 02/10/22 05:15 Assessment/Plan: 1. Pain: acetaminophen 1000mg PO Q6H PRN for pain scores 1-3 and oxycodone 5mg PO Q4H PRN pain 4-10. Resident has had 2 doses of acetaminophen (pain 7 in back) and 2 doses of oxycodone (pain 8 in back). Oxycodone is a BEERs criteria medication for respiratory depression and falls. Please continue to monitor for increased risk of falls, s/s respiratory depression, pain levels, constipation and PRN usage. 2. Bowel: Miralax 17gm PO daily and senna/docusate 1T PO BID. No bowel movements documented for 3 days as of 02/09/22. As of 02/11/22, still none documented yet. Please continue to monitor bowel movements.? 3. Fever and elevated WBC (14.6): levofloxacin 750mg IV Q48H thru 02/17/22. Fever has resolved (last? 98.7F). Please continue to monitor for S/S of infection, blood cultures, WBC, renal function and diarrhea. 4. Cough/shortness of breath: Benzonatate 100mg PO TID, albuterol sulfate inhaler 2 puffs inh Q4H PRN SOB/wheezing (last dose 02/10 1622), guaifenesin 10mL PO Q6H PRN cough/congestion (last dose 02/10 1622). Of note, if cough persists with these medications, resident is on lisinopril which can cause a dry cough. Please continue to monitor for worsening cough, s/s SOB/wheezing, and PRN usage of albuterol sulfate and guaifenesin. 5. Coronary artery disease and hypertension: metoprolol succinate 50mg PO BID, lisinopril 40mg PO daily, isosorbide mononitrate 60mg PO daily, aspirin 81mg PO daily (02/10 dose held d/t blood in stool), amlodipine 10mg PO daily.? Please continue to monitor for s/s hypotension, blood in stool, heart rate (last 86), blood pressure (last 144/67 mmHg), renal function, potassium (last 4mmol/L), co ugh, S/S of bleeding and hemoglobin (last 9.1g/dL). 6. Nausea: ondansetron ODT 8mg PO Q8H PRN nausea (last dose 02/09 1210). Please continue to monitor for worsening nausea and PRN usage.? 7. GERD: pantoprazole 20mg PO BID. Please continue to monitor for s/s breakthrough reflux, diarrhea, and magnesium (last 1.9mg/dL). 8. Hypokalemia: potassium chloride 20mEq PO daily. Please continue to monitor potassium levels (last 4.0mmol/L). 9. Hyperlipidemia: atorvastatin 10mg PO QHS. Please consider ordering a lipid panel if clinically appropriate. Last level from 07/2020. Thanks. Please continue to monitor LFTs (last 02/09/22) and muscle pain. Assessment/Plan for indications treated with psychotropic medications: none Medical chart and medication regimen reviewed. The following medication irregularities or issues were identified: *1. Atorvastatin 10mg PO QHS. Please consider ordering a lipid panel if clinically appropriate. Last level from 07/2020. Thanks. Date of Note:: 02/11/22
--- NOTE | 2022-02-11 15:31 | CHAPLAIN ---
Type of Pastoral Visit ___ Initial Visit ___ Follow-up Visit ___ On-call Visit ___ General Patient Visit ___ Spiritual Assessment ___ Family Conference ___ Bereavement ___ Rapid Response ___ Code Blue ___ Other (describe below) Pastoral Care Referral From ___ Patient ___ Family ___ Nurse ___ Physician ___ Air Pumper ___ Client Success Manager ___ Other (describe below) Sacrament/Intervention ___ Active listening ___ Anointing ___ Voodoo ___ Bereavement ___ Communion ___ Daina exploration ___ ___ Life review ___ Prayer ___ Reconciliation ___ Sacrament of Sick ___ Supportive presence ___ Wedding ___ Other (describe below) Pastoral Comments patient is sleeping at time of attempted visit and this high density finishing operator did not waken her
[2022-02-11 17:41] VITALS: BP 129/57; PULSE 101; RESP 20; TEMP 37.7; O2SAT 95
[2022-02-11] MEDS: oxyCODONE 5 MG Tablet PO (18:17)
[2022-02-11 18:19] VITALS: PULSE 101
--- NOTE | 2022-02-11 18:51 | NURSING ---
Patient back to room from EGD. Verbal orders from Dr. Armas's nurse given to start patient on reglan and Creon and restart regular diet. No dose on creon, paged Dr. Armas and spoke with him to clarify orders. Creon ordered to be increased to 3tabs TID w/ meals if patient tolerates ok. Ordered to start 1tab TID w/meals at this time, if no nausea can increase to the 3tabs TID.
[2022-02-11] MEDS: Aspirin E.C. 81 MG Tablet PO (21:20)
[2022-02-11] MEDS: Atorvastatin Calcium 10 MG Tablet PO (21:21)
[2022-02-11] MEDS: Metoclopramide 5 MG TABLET PO (21:23)
[2022-02-12] MEDS: oxyCODONE 5 MG Tablet PO ×2 (03:39→13:23)
[2022-02-12] MEDS: Lisinopril 40 MG Tablet PO (05:42)
[2022-02-12] MEDS: Pantoprazole Sodium 20 MG Tablet PO ×2 (05:42→17:56)
[2022-02-12] MEDS: Metoclopramide 5 MG TABLET PO ×4 (05:42→19:49)
[2022-02-12] MEDS: Benzonatate 100 MG Capsule PO ×3 (05:42→19:49)
[2022-02-12] MEDS: amLODIPine 10 MG Tablet PO (05:43)
[2022-02-12 05:44] VITALS: BP 135/63; PULSE 109
[2022-02-12] MEDS: Isosorbide Mononitrate 60 MG Tablet PO (05:44)
[2022-02-12] MEDS: Metoprolol(XL)Succ 50 MG Tablet PO ×2 (05:44→17:55)
[2022-02-12] MEDS: Potassium Chloride Oral Tablet 20 MEQ PO (08:46)
[2022-02-12 10:00] VITALS: PULSE 98; RESP 20; O2SAT 92
--- NOTE | 2022-02-12 10:03 | NURSING ---
This nurse spoke with patient about the flu shot and the pneumonia vaccine to be given this morning. Patient stated she would like to have the vaccines, however, she would like to talk to her doctor about it first.
[2022-02-12] MEDS: Acetaminophen 500 MG Tablet 1000 MG PO (13:23)
[2022-02-12 15:06] VITALS: BP 125/57; PULSE 98; RESP 20; TEMP 37.3; O2SAT 92
[2022-02-12 17:55] VITALS: BP 124/62; PULSE 91
[2022-02-12] MEDS: Atorvastatin Calcium 10 MG Tablet PO (19:49)
[2022-02-12] MEDS: Aspirin E.C. 81 MG Tablet PO (19:49)
[2022-02-12 20:07] LABS: Cytoplasmic Ab (C-ANCA) <1:20 titer (Neg:<1:20)
[2022-02-12] MEDS: guaiFENesin Dm 10 ML UDC PO (21:19)
[2022-02-13] MEDS: Benzonatate 100 MG Capsule PO ×3 (04:49→20:48)
[2022-02-13] MEDS: oxyCODONE 5 MG Tablet PO ×3 (04:49→23:41)
[2022-02-13 04:50] VITALS: BP 143/61; PULSE 103
[2022-02-13] MEDS: Pantoprazole Sodium 20 MG Tablet PO ×2 (04:50→17:04)
[2022-02-13] MEDS: amLODIPine 10 MG Tablet PO (04:50)
[2022-02-13] MEDS: Lisinopril 40 MG Tablet PO (04:50)
[2022-02-13] MEDS: Metoprolol(XL)Succ 50 MG Tablet PO ×2 (04:50→17:04)
[2022-02-13] MEDS: 0.9% Saline Lock 10 ML Syringe IV (04:53)
[2022-02-13 06:32] VITALS: BP 134/60; PULSE 107
[2022-02-13] MEDS: Metoclopramide 5 MG TABLET PO ×4 (06:39→20:48)
[2022-02-13] MEDS: Isosorbide Mononitrate 60 MG Tablet PO (06:39)
[2022-02-13] MEDS: Potassium Chloride Oral Tablet 20 MEQ PO (08:21)
[2022-02-13] MEDS: levoFLOXacin IV 750 MG/150 ML BAG 100 MG IV (09:11)
[2022-02-13 09:37] LABS: Perinuclear Ab (P-ANCA) <1:20 titer (Neg:<1:20)
[2022-02-13] MEDS: Acetaminophen 500 MG Tablet 1000 MG PO (13:53)
[2022-02-13 15:38] VITALS: BP 121/56; PULSE 95; RESP 18; TEMP 37.2; O2SAT 94
[2022-02-13 17:04] VITALS: BP 121/56; PULSE 95
[2022-02-13] MEDS: Senna/Docusate Sodium 1 Tablet PO (17:04)
[2022-02-13 20:00] VITALS: PULSE 95; RESP 18; O2SAT 94
[2022-02-13] MEDS: Atorvastatin Calcium 10 MG Tablet PO (20:48)
[2022-02-13] MEDS: Aspirin E.C. 81 MG Tablet PO (20:48)
[2022-02-14] MEDS: Acetaminophen 500 MG Tablet 1000 MG PO ×2 (05:34→20:49)
[2022-02-14] MEDS: Senna/Docusate Sodium 1 Tablet PO (05:35)
[2022-02-14] MEDS: Benzonatate 100 MG Capsule PO ×3 (05:35→20:52)
[2022-02-14 05:36] VITALS: BP 115/58; PULSE 104
[2022-02-14] MEDS: Pantoprazole Sodium 20 MG Tablet PO ×2 (05:36→17:46)
[2022-02-14] MEDS: Metoprolol(XL)Succ 50 MG Tablet PO ×2 (05:36→17:45)
[2022-02-14] MEDS: Isosorbide Mononitrate 60 MG Tablet PO (05:36)
[2022-02-14] MEDS: amLODIPine 10 MG Tablet PO (05:36)
[2022-02-14] MEDS: Metoclopramide 5 MG TABLET PO ×4 (05:36→20:52)
[2022-02-14] MEDS: Lisinopril 40 MG Tablet PO (05:36)
[2022-02-14] MEDS: 0.9% Saline Lock 10 ML Syringe IV ×2 (05:42→15:30)
[2022-02-14] MEDS: Potassium Chloride Oral Tablet 20 MEQ PO (08:51)
[2022-02-14 08:55] VITALS: TEMP 36.9
[2022-02-14 08:56] VITALS: PULSE 85; RESP 16; O2SAT 94
--- NOTE | 2022-02-14 09:40 | NURSING ---
Dr Rodarte office notified to cancel appt on FEB 16 for injection. pt will reschedule when dc'd from TCU.
[2022-02-14 13:07] LABS: Anti-Centromere B Ab <0.2 AI (0.0-0.9); Anti-Chromatin <0.2 AI (0.0-0.9); Anti-Jo <0.2 AI (0.0-0.9); Anti-Scleroderma-70 AB <0.2 AI (0.0-0.9); RNP Ab <0.2 AI (0.0-0.9); SJOGREN'S Anti-SS-A test 1.2 AI (0.0-0.9); SJOGREN'S Anti-SS-B test 0.3 AI (0.0-0.9); Smith Ab <0.2 AI (0.0-0.9)
[2022-02-14 14:15] VITALS: BP 123/57; PULSE 93; RESP 16; TEMP 36.9; O2SAT 98
[2022-02-14 14:42] LABS: Anti-dsDNA Ab <1 IU/mL (0-9)
[2022-02-14] MEDS: oxyCODONE 5 MG Tablet PO ×2 (15:29→22:59)
[2022-02-14 17:45] VITALS: PULSE 93
[2022-02-14] MEDS: Menthol/Lanolin/Calamine/Znox 113 GM Tube 1 APPLIC TOPICAL (17:49)
[2022-02-14] MEDS: guaiFENesin Dm 10 ML UDC PO (17:49)
--- NOTE | 2022-02-14 18:13 | PN_ITS ---
Subjective Subjective Patient is a little better today regarding her nausea and abdominal pain. She underwent an upper endoscopy and was discovered to have bile induced gastritis with some serpiginous gastric ulcers in the antrum. Biopsies are pending for H. pylori. Objective Data Objective Data Vital Signs: Vital Signs Temp Pulse Resp BP Pulse Ox O2 Del Method 98.4 F 93 16 123/57 H 98 Room Air 02/14/22 14:15 02/14/22 17:45 02/14/22 14:15 02/14/22 14:15 02/14/22 14:15 02/14/22 14:15 Oxygen Delivery Method Room Air Weight: 172 lb 4.977 oz Body Mass Index (BMI) 31.5 Intake & Output: Intake and Output for Last 24 Hours 02/12/22 02/13/22 02/14/22 23:59 23:59 23:59 Intake Total 540 / 540 390 / 390 480 / 480 Balance 540 / 540 390 / 390 480 / 480 Lab / Micro Data Result Diagrams: 02/11/22 05:29 02/10/22 05:15 Labs: Laboratory Results - last 24 hr 02/10/22 18:08: GET-1 Antibody <0.2, SS-A/Ro IgG Antibody 1.2 H, SS-B/La IgG Antibody 0.3, Sm (Wise) Antibody <0.2, MEDICAL HOUSEKEEPER Antibody <0.2, Scl-70 Scleroderma Ab <0.2, Double Strand DNA Ab <1, Centromere B Antibody <0.2 Micro: Microbiology 02/10/22 18:10 Blood Culture (Wb) - Anticubital Left Blood Culture - Preliminary No growth in 48 hours. 02/10/22 18:08 Blood Culture (Wb) - Anticubital Right Blood Culture - Preliminary No growth in 48 hours. 02/10/22 17:55 Stool Stool Occult Blood (MILLI) - Final Occult Blood Positive 02/09/22 17:20 Mucosa - Nasopharyngeal Respiratory Panel (PCR) - Final Physical Exam Const alert General Appearance: cooperative HEENT normocephalic Eyes PERRL and EOMs intact bilaterally Neck supple, no JVD and no carotid bruits Resp normal respiratory effort, normal air movement and clear to auscultation bilaterally Cardio regular rate and regular rhythm GI normal to inspection, nondistended, normoactive bowel sounds, non-tender and no n-distended GI Narrative: She does have grade 2-3 external hemorrhoid with some internal hemorrhoids and mild rectal prolapse. Extremity normal capillary refill General Extremity: Negative for edema Skin no rashes or lesions noted General Skin Exam: no breakdown Psych affect normal Appearance: appropriate Assessment & Plan Assessment/Plan (1) Lower GI bleeding: PLAN: Lower GI bleeding likely secondary to outlet bleeding from stercoral u lcer, internal or external hemorrhoids and/or rectal prolapse. She does not want to undergo colonoscopy at this time. Her hemoglobin seems to be stable. I told her that if it does continue to go down then we may need to do the regularization of the rectum and colon. (2) Rectal prolapse: PLAN: She has a grade 1 rectal prolapse that is not showing a lot of excoriation on exam (3) Hemorrhoids: PLAN: . Recommend topical treatment with corticosteroid therapy and suppository therapy for 21 days. Charges/Coding Visit Charges Inpatient E&M: 60377 Subs Hosp L3
[2022-02-14] MEDS: Hydrocortisone 2.5% Crm 1 APPLIC TOPICAL (20:50)
[2022-02-14] MEDS: Aspirin E.C. 81 MG Tablet PO (20:51)
[2022-02-14] MEDS: Atorvastatin Calcium 10 MG Tablet PO (20:52)
[2022-02-15 06:14] VITALS: BP 132/66; PULSE 93
[2022-02-15 06:15] VITALS: PULSE 93
[2022-02-15] MEDS: Metoprolol(XL)Succ 50 MG Tablet PO ×2 (06:15→17:30)
[2022-02-15] MEDS: Lisinopril 40 MG Tablet PO (06:15)
[2022-02-15] MEDS: Benzonatate 100 MG Capsule PO ×3 (06:15→20:26)
[2022-02-15] MEDS: Isosorbide Mononitrate 60 MG Tablet PO (06:15)
[2022-02-15] MEDS: Senna/Docusate Sodium 1 Tablet PO ×2 (06:16→17:30)
[2022-02-15] MEDS: Hydrocortisone 2.5% Crm 1 APPLIC TOPICAL ×2 (06:16→18:11)
[2022-02-15] MEDS: amLODIPine 10 MG Tablet PO (06:16)
[2022-02-15] MEDS: Pantoprazole Sodium 20 MG Tablet PO ×2 (06:16→17:30)
[2022-02-15] MEDS: Menthol/Lanolin/Calamine/Znox 113 GM Tube 1 APPLIC TOPICAL ×2 (06:17→17:30)
[2022-02-15] MEDS: Metoclopramide 5 MG TABLET PO ×4 (06:17→20:27)
--- NOTE | 2022-02-15 07:02 | MDS.RN ---
Incorrect phone number for contact Jo Castanon. [facility] registration updated with correct phone number.
[2022-02-15] MEDS: Potassium Chloride Oral Tablet 20 MEQ PO (08:06)
[2022-02-15] MEDS: levoFLOXacin IV 750 MG/150 ML BAG 100 MG IV (10:05)
[2022-02-15] MEDS: 0.9% Saline Lock 10 ML Syringe IV (10:06)
--- NOTE | 2022-02-15 11:23 | NURSING ---
Library Media Technician Note; Activity Asst: complete
[2022-02-15] MEDS: Ondansetron ODT 4 MG Tablet 8 MG PO (11:32)
[2022-02-15 12:28] VITALS: PULSE 75; O2SAT 95
[2022-02-15 13:46] VITALS: BP 135/58; PULSE 93; RESP 16; TEMP 36; O2SAT 96
[2022-02-15] MEDS: oxyCODONE 5 MG Tablet PO ×2 (14:27→20:30)
--- NOTE | 2022-02-15 15:16 | CHAPLAIN ---
Type of Pastoral Visit ___ Initial Visit _x__ Follow-up Visit ___ On-call Visit ___ General Patient Visit ___ Spiritual Assessment ___ Family Conference ___ Bereavement ___ Rapid Response ___ Code Blue ___ Other (describe below) Pastoral Care Referral From _x__ Patient ___ Family ___ Nurse ___ Physician ___ Emulsion Operator ___ Rug Inspector Helper ___ Other (describe below) Sacrament/Intervention _x__ Active listening ___ Anointing ___ Yazdanism ___ Bereavement ___ Communion ___ Daina exploration ___ ___ Life review _x__ Prayer ___ Reconciliation ___ Sacrament of Sick _x__ Supportive presence ___ Wedding ___ Other (describe below) Pastoral Comments patient talks of progress but that it is going slower than I like; pt does report that friends are helping with her particular needs for dog and life; pt gives some life review and welcomes a prayer
[2022-02-15 17:30] VITALS: BP 116/57; PULSE 101
[2022-02-15] MEDS: Aspirin E.C. 81 MG Tablet PO (20:26)
[2022-02-15] MEDS: Atorvastatin Calcium 10 MG Tablet PO (20:27)
[2022-02-15] MEDS: Acetaminophen 500 MG Tablet 1000 MG PO (20:30)
[2022-02-16] MEDS: Acetaminophen 500 MG Tablet 1000 MG PO (03:29)
[2022-02-16] MEDS: Hydrocortisone 2.5% Crm 1 APPLIC TOPICAL ×2 (06:37→18:28)
[2022-02-16] MEDS: Isosorbide Mononitrate 60 MG Tablet PO (06:38)
[2022-02-16] MEDS: Menthol/Lanolin/Calamine/Znox 113 GM Tube 1 APPLIC TOPICAL ×2 (06:38→17:49)
[2022-02-16] MEDS: amLODIPine 10 MG Tablet PO (06:39)
[2022-02-16] MEDS: Pantoprazole Sodium 20 MG Tablet PO ×2 (06:39→17:49)
[2022-02-16 06:40] VITALS: BP 114/59; PULSE 80
[2022-02-16] MEDS: Benzonatate 100 MG Capsule PO ×3 (06:40→21:05)
[2022-02-16] MEDS: Metoclopramide 5 MG TABLET PO ×4 (06:40→21:05)
[2022-02-16] MEDS: Lisinopril 40 MG Tablet PO (06:40)
[2022-02-16] MEDS: Metoprolol(XL)Succ 50 MG Tablet PO ×2 (06:40→17:48)
--- NOTE | 2022-02-16 08:23 | NURSING ---
Eviscerator Note; MDS complete
[2022-02-16] MEDS: Potassium Chloride Oral Tablet 20 MEQ PO (08:45)
[2022-02-16] MEDS: oxyCODONE 5 MG Tablet PO ×2 (08:52→21:05)
--- NOTE | 2022-02-16 09:45 | CASEMGMT ---
Social Work IDT met with patient and friend [facility]CPOA via conference call for care plan meeting. Discussed patient's progress in PT/OT/SN. Educated to Medicare benefit. Pts goal is to return home alone with 3 DUONG. JAMEE inquired about appetite and mood, as noted by IDT pt is not eating and down. Pt reports to low endurance and not ready to DC home at this time. Pt confirmed low mood and appetite. Encouraged to fuel body with food to improve energy. Offered medication, Remeron, to assist with appetite and mood, if Dr recommends. Pt agreeable to start of medication. JAMEE left written communication to Dr. MANCUSO to continue to follow for DC planning. BIMS () and PHQ-9 (05/10) completed for MDS assessment. JALEESA RuizW
[2022-02-16 12:00] VITALS: BP 132/61; PULSE 91; RESP 18; TEMP 36.9; O2SAT 95
[2022-02-16 17:48] VITALS: BP 120/55; PULSE 109
[2022-02-16] MEDS: Senna/Docusate Sodium 1 Tablet PO (17:49)
[2022-02-16] MEDS: 0.9% Saline Lock 10 ML Syringe IV (18:28)
[2022-02-16] MEDS: Atorvastatin Calcium 10 MG Tablet PO (21:05)
[2022-02-16] MEDS: Aspirin E.C. 81 MG Tablet PO (21:05)
[2022-02-17 05:30] LABS: Absolute Lymphocyte Count 0.98 X10^3/uL (0.83-4.51); Absolute Neutrophil Count 6.9 X10^3/uL (2.0-7.7); Basophil# 0.04 X10^3/uL; Basophil% 0.4 % (0-1); Eosinophil# 0.14 X10^3/uL; Eosinophils% 1.5 % (0-5); Hematocrit 26.8 % (37-47); Hemoglobin 8.3 g/dL (12.0-15.0); Lymphocyte # 0.98 X10^3/ul (0.83-4.51); Lymphocyte % 10.5 % (19-41); Mean Corpuscular Hgb 27.1 pg (27.0-32.0); Mean Corpuscular Volume 87.6 fL (81-99); Mean Platelet Vol. 8.9 fl (6.2-12.0); Monocyte# 1.17 X10^3/uL; Monocyte% 12.5 % (0-10); NRBC Flagged by Analyzer 0 % (0-5); Neutrophil # 6.94 X10^3/uL (2.7-7.7); Neutrophil % 74.4 % (47-70); Platelet Count 561 K/mm3 (150-450); RBC Distribution Width CV 16.1 % (11.6-14.6); RBC Distribution Width SD 51.3 fl (35.1-43.9); Red Blood Count 3.06 M/mm3 (4.2-5.4); White Blood Count 9.3 K/mm3 (4.4-11.0)
[2022-02-17 06:06] LABS: Anion Gap 6 (5-15); BUN 8 mg/dL (7-18); BUN/Creat Ratio 9.7 RATIO (10-20); Calcium,Total 8.7 mg/dL (8.5-10.1); Chloride 103 mmol/L (98-107); Creatinine, Serum 0.83 mg/dL (0.55-1.02); EST Glomerular Filtration Rate 70 mL/min (>60); Est Glom Filt Rate - Afr Amer 85 mL/min (>60); Estimated Creatinine Clearance 42.04 ml/min; Glucose 114 mg/dL (74-106); Potassium 4.5 mmol/L (3.5-5.1); Sodium Level 136 mmol/L (136-145)
[2022-02-17] MEDS: amLODIPine 10 MG Tablet PO (06:07)
[2022-02-17] MEDS: Metoclopramide 5 MG TABLET PO ×4 (06:07→20:03)
[2022-02-17] MEDS: Isosorbide Mononitrate 60 MG Tablet PO (06:07)
[2022-02-17] MEDS: Lisinopril 40 MG Tablet PO (06:07)
[2022-02-17] MEDS: Pantoprazole Sodium 20 MG Tablet PO ×2 (06:08→17:49)
[2022-02-17] MEDS: Senna/Docusate Sodium 1 Tablet PO ×2 (06:08→17:49)
[2022-02-17] MEDS: Benzonatate 100 MG Capsule PO ×3 (06:08→20:03)
[2022-02-17 06:09] VITALS: BP 132/63; PULSE 91
[2022-02-17] MEDS: Metoprolol(XL)Succ 50 MG Tablet PO ×2 (06:09→17:49)
[2022-02-17] MEDS: Hydrocortisone 2.5% Crm 1 APPLIC TOPICAL ×2 (06:11→17:50)
[2022-02-17] MEDS: Menthol/Lanolin/Calamine/Znox 113 GM Tube 1 APPLIC TOPICAL (06:11)
[2022-02-17] MEDS: Iron Polysaccharide Complex 150 MG CAPSULE PO (09:17)
[2022-02-17] MEDS: Potassium Chloride Oral Tablet 20 MEQ PO (09:17)
[2022-02-17] MEDS: levoFLOXacin IV 750 MG/150 ML BAG 100 MG IV (09:51)
[2022-02-17 10:00] VITALS: PULSE 83; RESP 16; O2SAT 94
[2022-02-17] MEDS: Tuberculin,Purif.prot.deriv. 50 TU/ML Vial 0.1 ML ID (10:13)
[2022-02-17] MEDS: oxyCODONE 5 MG Tablet PO ×2 (14:17→20:03)
[2022-02-17 16:00] VITALS: BP 100/46; PULSE 89; RESP 18; TEMP 37.1; O2SAT 98
[2022-02-17 17:44] VITALS: BP 125/53; PULSE 91
[2022-02-17 17:49] VITALS: PULSE 91
[2022-02-17] MEDS: Aspirin E.C. 81 MG Tablet PO (20:03)
[2022-02-17] MEDS: Atorvastatin Calcium 10 MG Tablet PO (20:03)
[2022-02-18] MEDS: Baclofen 10 MG Tablet PO (00:03)
[2022-02-18] MEDS: oxyCODONE 5 MG Tablet PO ×2 (00:03→20:55)
[2022-02-18] MEDS: Hydrocortisone 2.5% Crm 1 APPLIC TOPICAL ×2 (06:08→17:58)
[2022-02-18 06:09] VITALS: BP 114/53; PULSE 86
[2022-02-18] MEDS: Metoprolol(XL)Succ 50 MG Tablet PO ×2 (06:09→17:56)
[2022-02-18] MEDS: amLODIPine 10 MG Tablet PO (06:09)
[2022-02-18] MEDS: Menthol/Lanolin/Calamine/Znox 113 GM Tube 1 APPLIC TOPICAL ×2 (06:09→17:54)
[2022-02-18] MEDS: Isosorbide Mononitrate 60 MG Tablet PO (06:09)
[2022-02-18] MEDS: Pantoprazole Sodium 20 MG Tablet PO ×2 (06:10→17:55)
[2022-02-18] MEDS: Benzonatate 100 MG Capsule PO ×3 (06:10→21:00)
[2022-02-18] MEDS: Senna/Docusate Sodium 1 Tablet PO ×2 (06:10→17:55)
[2022-02-18] MEDS: Lisinopril 40 MG Tablet PO (06:11)
[2022-02-18] MEDS: Metoclopramide 5 MG TABLET PO ×4 (07:53→21:00)
[2022-02-18] MEDS: Iron Polysaccharide Complex 150 MG CAPSULE PO (07:53)
[2022-02-18] MEDS: Potassium Chloride Oral Tablet 20 MEQ PO (07:54)
[2022-02-18 09:00] VITALS: O2SAT 96
[2022-02-18 15:03] LABS: Mucous, Urine 0 SEEN /hpf (<or=2+)
[2022-02-18 15:15] LABS: Color, Urine Yellow (Yellow); Glucose, Dipstick Normal (Normal); Ketone-Dipstick Negative (Negative); Leukocyte Esterase-Dipstick 500 /ul (Negative); Nitrite-Dipstick Negative (Negative); Occult Blood-Urine 250 /ul (Negative); Protein-Dipstick 100 mg/dl (Negative); Specific Gravity, Urine 1.015 (1.002-1.030); Urine Bilirubin Dipstick Negative (Negative); Urine Clarity Cloudy (Clear); Urine Urobilinogen Normal (Normal)
[2022-02-18 15:28] LABS: Bacteria 4+ /hpf (None Seen); Red Blood Cells-Urine 25-50 SEEN /hpf (0-5); Squamous Epithelial Cells - UA 10-25 SEEN /hpf (5-10); White Blood Cells >100 SEEN /hpf (0-5)
[2022-02-18 15:43] VITALS: BP 124/59; PULSE 91; RESP 18; TEMP 37.1; O2SAT 92
[2022-02-18 17:56] VITALS: BP 125/61; PULSE 94
[2022-02-18 20:55] VITALS: PULSE 77; RESP 16; O2SAT 93
[2022-02-18] MEDS: Aspirin E.C. 81 MG Tablet PO (20:59)
[2022-02-18] MEDS: Atorvastatin Calcium 10 MG Tablet PO (20:59)
[2022-02-19] MEDS: oxyCODONE 5 MG Tablet PO ×4 (02:59→23:35)
[2022-02-19] MEDS: Menthol/Lanolin/Calamine/Znox 113 GM Tube 1 APPLIC TOPICAL ×2 (05:58→17:13)
[2022-02-19] MEDS: Hydrocortisone 2.5% Crm 1 APPLIC TOPICAL ×2 (05:58→17:13)
[2022-02-19] MEDS: Isosorbide Mononitrate 60 MG Tablet PO (06:00)
[2022-02-19 06:01] VITALS: BP 139/65; PULSE 84
[2022-02-19] MEDS: Metoprolol(XL)Succ 50 MG Tablet PO ×2 (06:01→17:13)
[2022-02-19] MEDS: Metoclopramide 5 MG TABLET PO ×4 (06:01→21:19)
[2022-02-19] MEDS: Senna/Docusate Sodium 1 Tablet PO ×2 (06:01→17:12)
[2022-02-19] MEDS: amLODIPine 10 MG Tablet PO (06:01)
[2022-02-19] MEDS: Lisinopril 40 MG Tablet PO (06:01)
[2022-02-19] MEDS: Benzonatate 100 MG Capsule PO ×3 (06:01→21:20)
[2022-02-19] MEDS: Pantoprazole Sodium 20 MG Tablet PO ×2 (06:01→17:12)
[2022-02-19 07:38] LABS: Absolute Lymphocyte Count 1.02 X10^3/uL (0.83-4.51); Absolute Neutrophil Count 6.2 X10^3/uL (2.0-7.7); Basophil# 0.06 X10^3/uL; Basophil% 0.7 % (0-1); Eosinophil# 0.17 X10^3/uL; Hematocrit 27.5 % (37-47); Hemoglobin 8.5 g/dL (12.0-15.0); Lymphocyte # 1.02 X10^3/ul (0.83-4.51); Lymphocyte % 11.9 % (19-41); Mean Corp Hgb Conc 30.9 g/dL (32-36); Mean Corpuscular Hgb 27.6 pg (27.0-32.0); Mean Corpuscular Volume 89.3 fL (81-99); Mean Platelet Vol. 8.9 fl (6.2-12.0); Monocyte# 1.01 X10^3/uL; Monocyte% 11.8 % (0-10); NRBC Flagged by Analyzer 0 % (0-5); Neutrophil # 6.24 X10^3/uL (2.7-7.7); Platelet Count 459 K/mm3 (150-450); RBC Distribution Width CV 15.9 % (11.6-14.6); RBC Distribution Width SD 51.8 fl (35.1-43.9); Red Blood Count 3.08 M/mm3 (4.2-5.4); White Blood Count 8.6 K/mm3 (4.4-11.0)
[2022-02-19] MEDS: Iron Polysaccharide Complex 150 MG CAPSULE PO (07:51)
[2022-02-19] MEDS: Potassium Chloride Oral Tablet 20 MEQ PO (07:51)
[2022-02-19 10:00] VITALS: PULSE 68; RESP 16; O2SAT 98
[2022-02-19 15:31] VITALS: BP 121/64; PULSE 82; RESP 14; TEMP 36; O2SAT 94
[2022-02-19 17:13] VITALS: BP 121/64; PULSE 82
[2022-02-19] MEDS: Atorvastatin Calcium 10 MG Tablet PO (21:19)
[2022-02-19] MEDS: Aspirin E.C. 81 MG Tablet PO (21:20)
[2022-02-20] MEDS: Menthol/Lanolin/Calamine/Znox 113 GM Tube 1 APPLIC TOPICAL ×2 (05:52→17:10)
[2022-02-20 05:53] VITALS: BP 126/64; PULSE 90
[2022-02-20] MEDS: Metoprolol(XL)Succ 50 MG Tablet PO ×2 (05:53→17:05)
[2022-02-20] MEDS: amLODIPine 10 MG Tablet PO (05:53)
[2022-02-20] MEDS: Lisinopril 40 MG Tablet PO (05:53)
[2022-02-20] MEDS: Senna/Docusate Sodium 1 Tablet PO (05:53)
[2022-02-20] MEDS: Benzonatate 100 MG Capsule PO ×3 (05:53→21:59)
[2022-02-20] MEDS: Isosorbide Mononitrate 60 MG Tablet PO (05:53)
[2022-02-20] MEDS: Pantoprazole Sodium 20 MG Tablet PO ×2 (05:53→17:02)
[2022-02-20] MEDS: Hydrocortisone 2.5% Crm 1 APPLIC TOPICAL ×2 (05:58→17:10)
[2022-02-20] MEDS: oxyCODONE 5 MG Tablet PO ×4 (06:02→21:59)
[2022-02-20] MEDS: Potassium Chloride Oral Tablet 20 MEQ PO (09:44)
[2022-02-20] MEDS: Metoclopramide 5 MG TABLET PO ×4 (09:45→21:59)
[2022-02-20] MEDS: Iron Polysaccharide Complex 150 MG CAPSULE PO (09:45)
[2022-02-20] MEDS: Acetaminophen 500 MG Tablet 1000 MG PO ×2 (10:12→21:58)
[2022-02-20 15:43] VITALS: BP 102/57; PULSE 80; RESP 14; TEMP 36.2; O2SAT 96
[2022-02-20] MEDS: MethylPREDNISolone DosePak 4 MG BOX 8 MG PO ×2 (16:58→21:59)
[2022-02-20 17:05] VITALS: BP 113/72; PULSE 88
[2022-02-20 21:50] VITALS: BP 127/71; PULSE 86; RESP 18; TEMP 36.8; O2SAT 97
[2022-02-20] MEDS: Aspirin E.C. 81 MG Tablet PO (21:58)
[2022-02-20] MEDS: Atorvastatin Calcium 10 MG Tablet PO (21:59)
[2022-02-21] MEDS: Isosorbide Mononitrate 60 MG Tablet PO (05:12)
[2022-02-21] MEDS: amLODIPine 10 MG Tablet PO (05:12)
[2022-02-21 05:13] VITALS: BP 114/63; PULSE 83
[2022-02-21] MEDS: Benzonatate 100 MG Capsule PO ×3 (05:13→20:15)
[2022-02-21] MEDS: Pantoprazole Sodium 20 MG Tablet PO ×2 (05:13→16:46)
[2022-02-21] MEDS: Lisinopril 40 MG Tablet PO (05:13)
[2022-02-21] MEDS: Metoprolol(XL)Succ 50 MG Tablet PO ×2 (05:13→16:48)
[2022-02-21] MEDS: Metoclopramide 5 MG TABLET PO ×4 (05:14→20:15)
[2022-02-21 06:00] VITALS: BP 114/63; PULSE 83; RESP 17; TEMP 36.6; O2SAT 96
[2022-02-21] MEDS: Iron Polysaccharide Complex 150 MG CAPSULE PO (09:17)
[2022-02-21] MEDS: MethylPREDNISolone DosePak 4 MG BOX 8 MG PO ×4 (09:17→20:14)
[2022-02-21] MEDS: Potassium Chloride Oral Tablet 20 MEQ PO (09:17)
[2022-02-21] MEDS: Acetaminophen 500 MG Tablet 1000 MG PO ×2 (09:21→21:36)
--- NOTE | 2022-02-21 09:48 | MDS.RN ---
Information for the mds was obtained from review of the clinical record, interview of resident, staff, and direct observation of resident's care. No PDPM codes generated for the admission assessment, [facility] I. S. aware.
[2022-02-21] MEDS: oxyCODONE 5 MG Tablet PO ×2 (12:55→21:35)
[2022-02-21 14:30] VITALS: BP 102/54; PULSE 75; RESP 14; TEMP 36.2; O2SAT 97
[2022-02-21 16:48] VITALS: BP 119/54; PULSE 82
[2022-02-21] MEDS: Aspirin E.C. 81 MG Tablet PO (20:15)
[2022-02-21] MEDS: Atorvastatin Calcium 10 MG Tablet PO (20:15)
[2022-02-21 22:37] VITALS: PULSE 84; RESP 16; O2SAT 96
--- NOTE | 2022-02-22 00:29 | NURSING ---
Patient having difficulty sleeping. States she has not been able to sleep the last 2 nights. Patient is currently on Solu-medrol dose pack, which she states that she has been on before and had problems sleeping. Will continue to monitor.
[2022-02-22] MEDS: oxyCODONE 5 MG Tablet PO ×2 (01:58→21:42)
[2022-02-22] MEDS: Isosorbide Mononitrate 60 MG Tablet PO (07:07)
[2022-02-22] MEDS: Pantoprazole Sodium 20 MG Tablet PO ×2 (07:07→17:13)
[2022-02-22] MEDS: Metoclopramide 5 MG TABLET PO ×4 (07:07→21:43)
[2022-02-22] MEDS: Benzonatate 100 MG Capsule PO ×3 (07:07→21:43)
[2022-02-22 07:08] VITALS: BP 112/52; PULSE 84
[2022-02-22] MEDS: Lisinopril 40 MG Tablet PO (07:08)
[2022-02-22] MEDS: Furosemide 20 MG Tablet PO (07:08)
[2022-02-22] MEDS: Metoprolol(XL)Succ 50 MG Tablet PO ×2 (07:08→17:13)
[2022-02-22] MEDS: amLODIPine 10 MG Tablet PO (07:08)
[2022-02-22] MEDS: Iron Polysaccharide Complex 150 MG CAPSULE PO (08:52)
[2022-02-22] MEDS: Colchicine 0.6 MG TABLET PO (08:52)
[2022-02-22] MEDS: Potassium Chloride Oral Tablet 20 MEQ PO (08:52)
[2022-02-22] MEDS: FLU VACC QS2022-23(6MOS UP)/PF 60 MCG/0.5 ML SYRINGE IM (12:15)
--- NOTE | 2022-02-22 13:51 | CASEMGMT ---
Social Work Pt requesting to DC home. IDT discussed and pt agreeable to DC 02/24, home alone. Pt is adlib in room. Pt requesting [facility]. Faxed referral. No DME needs. Friend to transport home. BIMS () and PHQ-9 (08/08) completed for MDS assessment. Pt reports appetite, mood and sleep have improved with Remeron. Plan: DC home alone 02/24, [facility] JALEESA RuizW
[2022-02-22 14:54] VITALS: BP 106/58; PULSE 80; RESP 16; TEMP 36.8; O2SAT 95
[2022-02-22 17:13] VITALS: BP 134/66; PULSE 78
[2022-02-22] MEDS: Senna/Docusate Sodium 1 Tablet PO (17:13)
--- NOTE | 2022-02-22 19:13 | DS.PCM_ITS ---
Providers Date of Admission: 02/09/22 Primary Care Physician: Dr. Stephanie Partida, Consultations 02/10/22 20:21 Consult: Gastroenterology Routine Consulting Provider: [facility] Reason for Consult: +occult blood, dropping hgb EMERGENT Consult: No MD Notified: Yes Date Notified: 02/14/22 Time Notified: 12:00 Method of Notification: Verbal Reason For Visit: WEAKNESS/FAILURE TO THRIVE Diagnosis Discharge Diagnosis (1) Lower GI bleeding: Status: Acute Code(s): K92.2 - Gastrointestinal hemorrhage, unspecified (2) Rectal prolapse: Status: Acute Code(s): K62.3 - Rectal prolapse (3) Hemorrhoids: Status: Acute Code(s): K64.9 - Unspecified hemorrhoids Plan 81 year old female with below past medical history presented to Emergency Department with weakness, febrile illness, admitted to TCU with debility, here for rehabilitation, strengthening, prior to discharge home alone. * Debility - PT/OT. * Pain - Tylenol 1000mg q6h prn pain (1-10). * Bowel - Miralax 17gm daily, senna/colace 1 tablet bid, soap suds enema x 1, KUB. * Adult immunization - Administer pneumonia vaccine, covid19 vaccine, flu vaccine. * DVT prophylaxis - Hold, anemia. * Fever - WBC 14.6, blood cultures pending, urine culture pending, Chest X-ray negative, covid19 negative, respiratory panel pending. * Hypertension - Metoprolol succinate 50mg bid, Lisinopril 40mg daily, Amlodipine 10mg daily. * Coronary artery disease - Metoprolol succinate 50mg bid, Lisinopril 40mg daily, Imdur 60mg daily, Aspirin 81mg daily. * Hyperlipidemia - Atorvastatin 10mg qhs. * Nausea - Zofran odt 8mg q8h prn. * GERD - Pantoprazole 20mg bid. * Hypokalemia - KCL 20meq daily. Medications at Discharge Home Medications isosorbide mononitrate 60 mg tablet,extended release 24 hr 60 mg PO DAILY chest pain 07/09/16 amlodipine 10 mg tablet 10 mg PO DAILY blood pressure 12/10/16 benazepril 40 mg tablet 40 mg PO DAILY blood pressure 12/10/16 simvastatin 20 mg tablet 20 mg PO QHS cholesterol 12/10/16 aspirin 81 mg tablet,delayed release 81 mg PO QHS heart 04/10/20 calcium carbonate 500 mg calcium (1,250 mg) tablet (Calcium 500) 1,200 mg PO BID Supplement 08/25/20 magnesium oxide 500 mg tablet 500 mg PO DAILY supplement 03/31/21 zinc gluconate 50 mg tablet 50 mg PO DAILY Health maintenence 03/31/21 omeprazole 20 mg capsule,delayed release 20 mg PO BID gerd 06/22/21 metoprolol succinate 50 mg tablet,extended release 24 hr (Toprol XL) 50 mg PO BID BP 02/09/22 acetaminophen 500 mg tablet 1,000 mg PO Q6H PRN PRN Pain Score 1-3 #0 tabs 02/22/22 albuterol sulfate 90 mcg/actuation aerosol inhaler (Ventolin HFA) 2 puff inhalation Q4H PRN PRN SOB &/OR WHEEZING #0 grams 02/22/22 baclofen 10 mg tablet 10 mg PO TID PRN PRN Muscle Spasm #0 tabs 02/22/22 colchicine 0.6 mg capsule 0.6 mg PO DAILY 7 days #7 caps 02/22/22 furosemide 20 mg tablet 20 mg PO DAILY 30 days #30 tabs 02/22/22 msqukp-mfkcjyam-asjznif 6,000-19,000-30,000 unit capsule,delayed rel (Creon) 3 cap PO TIDCM 30 days #270 caps 02/22/22 menthol 0.44 %-zinc oxide 20.6 % topical ointment (Calmoseptine) 1 applic topical BID #0 grams 02/22/22 metoclopramide HCl 5 mg tablet 5 mg PO ACHS 30 days #120 tabs 02/22/22 oxycodone 5 mg tablet 5 mg PO Q4H PRN PRN Pain Score 4-10 3 days #18 tabs 02/22/22 polysaccharide iron complex 150 mg iron capsule (Ferrex) 150 mg PO 0800 30 days #30 caps 02/22/22 potassium chloride 20 mEq tablet,extended release 20 meq PO DAILY Hypokalemia 30 days #30 tabs 02/22/22 Hospital Course Operations None Procedures EGD Summary of Care Provided Minutes Spent on Discharge: 35 Hospital Course: 81 year old female with below past medical history presented to Emergency Department with weakness, febrile illness, admitted to TCU with debility, here for rehabilitation, strengthening, prior to discharge home alone. Fever secondary to Bibasilar pneumonia treated with IV Levaquin x 7 days. 02/11/2022 Dr. Armas performed EGD showing esophageal varices, small hiatal hernia, gastritis, duodenal ulcer cauterized. Discharge home alone 02/24/2022, [facility]. Physical Exam Const alert General Appearance: cooperative HEENT normocephalic Eyes PERRL and EOMs intact bilaterally Neck supple, no JVD and no carotid bruits Resp normal respiratory effort, normal air movement and clear to auscultation bilaterally Cardio regular rate and regular rhythm GI normal to inspection, nondistended, normoactive bowel sounds, non-tender and non-distended Extremity normal capillary refill General Extremity: Negative for edema Skin no rashes or lesions noted General Skin Exam: no breakdown Psych affect normal Appearance: appropriate Weight / BMI Weight Weight: 72.847 kg Body Mass Index (BMI) 31.5 ABG / Lab / Microbiology Data Result Diagrams: 02/19/22 07:10 02/17/22 05:19 Microbiology: Microbiology 02/18/22 15:03 Urine, Random Urine Culture - Final Mixed Gram Positive Organisms 02/16/22 06:47 Nasal Secretion SARS-CoV-2 Antigen (Rapid) - Final 02/10/22 18:08 Blood Culture (Wb) - Anticubital Right Blood Culture - Final No growth in 5 days. 02/10/22 18:10 Blood Culture (Wb) - Anticubital Left Blood Culture - Final No growth in 5 days. 02/10/22 17:55 Stool Stool Occult Blood (MILLI) - Final Occult Blood Positive 02/09/22 17:20 Mucosa - Nasopharyngeal Respiratory Panel (PCR) - Final D/C Instructions Discharge Diet: No restrictions Discharge Activity: Return to Normal Activity, May Shower and Use Walker Weight Bearing Status: Weight bearing as tolerated Call your doctor if you observe: Fever of 101 or Higher, Inability to urinate, Inability to have a bowel movement, Shortness of breath, Dizziness, Fainting spells, Swelling in the ankles, Chest pain and Uncontrolled pain Additional Instructions: Discharge home alone 02/24/2022, [facility]. Please Follow Up With: Herbert Rodarte, DO When: As scheduled. Meaningful Use Info Meaningful Use Diagnoses (Choose all that apply): None applicable Discharge Plan Admission Admit Date/Time: 02/09/22 11:45 Primary Reason for Your Visit: Debility. Attending Provider: [facility] Primary Care Provider: Stephanie Partida Instructions Additional Instructions / Restrictions: Discharge home alone 02/24/2022, [facility]. Discharge Orders/Prescriptions Prescriptions: New acetaminophen 500 mg Tablet 1,000 mg PO Q6H PRN PRN (Reason: Pain Score 1-3) Qty: 0 0RF baclofen 10 mg Tablet 10 mg PO TID PRN PRN (Reason: Muscle Spasm) Qty: 0 0RF albuterol sulfate [Ventolin HFA] 90 mcg/actuation Hfa Aerosol Inhaler 2 puff inhalation Q4H PRN PRN (Reason: SOB &/OR WHEEZING) Qty: 0 0RF colchicine 0.6 mg Capsule 0.6 mg PO DAILY 7 Days Qty: 7 0RF polysaccharide iron complex [Ferrex 150] 150 mg iron Capsule 150 mg PO 0800 30 Days Qty: 30 0RF furosemide 20 mg Tablet 20 mg PO DAILY 30 Days Qty: 30 0RF Creon 6,000-19,000 -30,000 unit Capsule,Delayed Release(Dr/Ec) 3 cap PO TIDCM 30 Days Qty: 270 0RF metoclopramide HCl 5 mg Tablet 5 mg PO ACHS 30 Days Qty: 120 0RF oxycodone 5 mg Tablet 5 mg PO Q4H PRN PRN (Reason: Pain Score 4-10) 3 Days Qty: 18 0RF menthol-zinc oxide [Calmoseptine] 0.44-20.6 % Ointment 1 applic topical BID Qty: 0 0RF Protocol: *Topical Application Instructions APPLICATION INSTRUCTIONS: buttocks Continued calcium carbonate [Calcium 500] 500 mg calcium (1,250 mg) tablet 1,200 mg PO BID magnesium oxide 500 mg tablet 500 mg PO DAILY zinc gluconate 50 mg tablet 50 mg PO DAILY omeprazole 20 mg capsule,delayed release(DR/EC) 20 mg PO BID isosorbide mononitrate 60 MG tablet extended release 24 hr 60 mg PO DAILY amlodipine 10 MG tablet 10 mg PO DAILY Label Comments: simvastatin 20 MG tablet 20 mg PO QHS benazepril 40 MG tablet 40 mg PO DAILY Label Comments: aspirin 81 MG tablet,delayed release (DR/EC) 81 mg PO QHS metoprolol succinate [Toprol XL] 50 mg tablet extended release 24 hr 50 mg PO BID potassium chloride 20 mEq tablet extended release 20 meq PO DAILY 30 Days Qty: 30 0RF Discontinued baclofen 10 mg tablet 5 - 10 mg PO BID PRN (Reason: spasms) hydrocodone-acetaminophen 5-325 mg tablet 1 - 2 tab PO BID PRN (Reason: Pain) Label Comments: take 1 tablet by mouth one to two times a day if needed for pain albuterol sulfate [Ventolin HFA] 90 mcg/actuation HFA aerosol inhaler 1 - 2 puff inhalation Q4H PRN PRN (Reason: Wheezing) Qty: 1 0RF ondansetron [ondansetron] 4 mg tablet,disintegrating 8 mg PO Q8H PRN PRN (Reason: Nausea) Qty: 20 0RF furosemide [Lasix] 40 mg tablet 40 mg PO DAILY PRN (Reason: swelling) Referrals / Follow Up: Stephanie Partida DO [Primary Care Provider] - Disposition Disposition (needs filled in before D/C Order can be placed): Home, Self Care
[2022-02-22 21:42] VITALS: BP 119/62; PULSE 81
[2022-02-22] MEDS: Aspirin E.C. 81 MG Tablet PO (21:43)
[2022-02-22] MEDS: Atorvastatin Calcium 10 MG Tablet PO (21:43)
[2022-02-23] MEDS: Acetaminophen 500 MG Tablet 1000 MG PO (00:25)
[2022-02-23] MEDS: oxyCODONE 5 MG Tablet PO ×2 (02:09→21:21)
[2022-02-23 06:54] VITALS: BP 122/57; PULSE 79
[2022-02-23] MEDS: Menthol/Lanolin/Calamine/Znox 113 GM Tube 1 APPLIC TOPICAL ×2 (06:57→17:52)
[2022-02-23] MEDS: Furosemide 20 MG Tablet PO (06:58)
[2022-02-23] MEDS: Isosorbide Mononitrate 60 MG Tablet PO (06:58)
[2022-02-23] MEDS: Colchicine 0.6 MG TABLET PO (06:58)
[2022-02-23 06:59] VITALS: PULSE 79
[2022-02-23] MEDS: Pantoprazole Sodium 20 MG Tablet PO ×2 (06:59→17:48)
[2022-02-23] MEDS: Metoclopramide 5 MG TABLET PO ×4 (06:59→21:23)
[2022-02-23] MEDS: Lisinopril 40 MG Tablet PO (06:59)
[2022-02-23] MEDS: amLODIPine 10 MG Tablet PO (06:59)
[2022-02-23] MEDS: Metoprolol(XL)Succ 50 MG Tablet PO ×2 (06:59→17:48)
[2022-02-23] MEDS: Benzonatate 100 MG Capsule PO ×3 (06:59→21:23)
[2022-02-23] MEDS: Potassium Chloride Oral Tablet 20 MEQ PO (08:08)
[2022-02-23 16:00] VITALS: BP 134/68; PULSE 87; RESP 18; TEMP 37; O2SAT 95
--- NOTE | 2022-02-23 16:30 | CASEMGMT ---
Social Work SHIMA reported to this worker that pt is getting nervous about DC tomorrow. SW followed up with pt to discuss feelings about DC. Pt expressed still feeling woosy from yesterday. Pt is unsure if it's dehydration, low BP, low BS, weakness, tiredness. SW offered to speak with nurse about getting vitals and ordering labs to ensure things are WNL before discharging. Pt agreeable. SW notified nurse at that time of request. SW returned speaking with pt. Pt went on to express further emotions about getting old, having no family, and what her future holds. Pt shared a lot of stories and feelings with this worker. SW provided validation, acknowledgement, empathy and supportive listening throughout conversation. Pt emotional at times. Pt expressed great apprecation for time spent. SW offered to postpone DC but pt does want to sleep in her own bed and give it a try. Educated to pt changing her mind tomorrow, but encouraged to get lab results prior to DC. Pt agreed and will have friend pick her up at 1300. SW to follow up with pt prior to DC. Time Spent: 30 minutes JALEESA RuizW
[2022-02-23 17:48] VITALS: PULSE 90
[2022-02-23] MEDS: Senna/Docusate Sodium 1 Tablet PO (17:48)
[2022-02-23] MEDS: Hydrocortisone 2.5% Crm 1 APPLIC TOPICAL (17:52)
[2022-02-23] MEDS: Atorvastatin Calcium 10 MG Tablet PO (21:23)
[2022-02-23] MEDS: Aspirin E.C. 81 MG Tablet PO (21:23)
[2022-02-24] MEDS: oxyCODONE 5 MG Tablet PO ×2 (00:51→06:33)
[2022-02-24 05:42] LABS: Absolute Lymphocyte Count 1.48 X10^3/uL (0.83-4.51); Absolute Neutrophil Count 5.7 X10^3/uL (2.0-7.7); Basophil# 0.05 X10^3/uL; Basophil% 0.6 % (0-1); Eosinophils% 3.5 % (0-5); Hematocrit 30.7 % (37-47); Hemoglobin 9.4 g/dL (12.0-15.0); Lymphocyte # 1.48 X10^3/ul (0.83-4.51); Lymphocyte % 17.2 % (19-41); Mean Corp Hgb Conc 30.6 g/dL (32-36); Mean Corpuscular Hgb 26.6 pg (27.0-32.0); Mean Corpuscular Volume 86.7 fL (81-99); Mean Platelet Vol. 8.7 fl (6.2-12.0); Monocyte# 0.94 X10^3/uL; Monocyte% 10.9 % (0-10); NRBC Flagged by Analyzer 0 % (0-5); Neutrophil # 5.74 X10^3/uL (2.7-7.7); Neutrophil % 66.8 % (47-70); Platelet Count 457 K/mm3 (150-450); RBC Distribution Width CV 15.9 % (11.6-14.6); RBC Distribution Width SD 50.6 fl (35.1-43.9); Red Blood Count 3.54 M/mm3 (4.2-5.4); White Blood Count 8.6 K/mm3 (4.4-11.0)
[2022-02-24] MEDS: Furosemide 20 MG Tablet PO (06:05)
[2022-02-24 06:06] VITALS: BP 131/68; PULSE 97
[2022-02-24] MEDS: Pantoprazole Sodium 20 MG Tablet PO (06:06)
[2022-02-24] MEDS: Lisinopril 40 MG Tablet PO (06:06)
[2022-02-24] MEDS: Isosorbide Mononitrate 60 MG Tablet PO (06:06)
[2022-02-24] MEDS: Metoclopramide 5 MG TABLET PO ×2 (06:06→11:44)
[2022-02-24] MEDS: Benzonatate 100 MG Capsule PO (06:06)
[2022-02-24] MEDS: Colchicine 0.6 MG TABLET PO (06:06)
[2022-02-24] MEDS: Metoprolol(XL)Succ 50 MG Tablet PO (06:06)
[2022-02-24] MEDS: amLODIPine 10 MG Tablet PO (06:06)
[2022-02-24] MEDS: Menthol/Lanolin/Calamine/Znox 113 GM Tube 1 APPLIC TOPICAL (06:07)
[2022-02-24 06:19] LABS: Anion Gap 6 (5-15); BUN 14 mg/dL (7-18); BUN/Creat Ratio 18.5 RATIO (10-20); Calcium,Total 8.6 mg/dL (8.5-10.1); Chloride 104 mmol/L (98-107); Creatinine, Serum 0.76 mg/dL (0.55-1.02); EST Glomerular Filtration Rate 78 mL/min (>60); Est Glom Filt Rate - Afr Amer 94 mL/min (>60); Glucose 98 mg/dL (74-106); Sodium Level 139 mmol/L (136-145)
[2022-02-24] MEDS: Potassium Chloride Oral Tablet 20 MEQ PO (08:22)
[2022-02-24 12:35] VITALS: PULSE 98; O2SAT 98
[2022-02-24 13:50] VITALS: BP 103/59; PULSE 93; RESP 16; TEMP 36.4; O2SAT 93
--- NOTE | 2022-02-24 13:54 | NURSING ---
Patient says she still feels shaky, not as strong as normal the last couple days. Reviewed labs and meds, Dr Cuba aware, verbal order to discontinue reglan. Updated patient and marked reglan off on DC paperwork. She still wants to go home, does not want to wait to see if she feels any different. Educated her about calling her PCP for any changes or going to ER if needed. She is aware she needs to call PCP for followup in the next week. All meds and instructions reviewed with her at bedside, she has no questions. VSS.
== END 2022-02-24 14:00 | disposition home or self-care (01) | DRG 193 ==
PROVIDERS: Admitting Provider Family Medicine Geriatric Medicine; PCP Family Medicine; Visit Provider Family Medicine Geriatric Medicine
DX: J18.9 Pneumonia, unspecified organism (principal); K26.4 Chronic or unspecified duodenal ulcer with hemorrhage; K29.71 Gastritis, unspecified, with bleeding; I85.00 Esophageal varices without bleeding; D62 Acute posthemorrhagic anemia; I27.21 Secondary pulmonary arterial hypertension; J44.9 Chronic obstructive pulmonary disease, unspecified; E78.5 Hyperlipidemia, unspecified; I25.10 Atherosclerotic heart disease of native coronary artery without angina pectoris; E87.6 Hypokalemia; I10 Essential (primary) hypertension; K21.9 Gastro-esophageal reflux disease without esophagitis; K62.3 Rectal prolapse; K64.8 Other hemorrhoids; K64.4 Residual hemorrhoidal skin tags; K44.9 Diaphragmatic hernia without obstruction or gangrene; Z79.82 Long term (current) use of aspirin; G89.29 Other chronic pain; Z87.891 Personal history of nicotine dependence; Z79.899 Other long term (current) drug therapy; Z86.718 Personal history of other venous thrombosis and embolism; Z23 Encounter for immunization
CPT/HCPCS: 36415; 74018; 76770; 80048; 81001; 82274; 85025; 85652; 86140; 86225; 86235; 86256; 87040; 87086; 87088; 87426; 87633; 97110; 97162; 97166; 97530; 97535; 97802; G0008; J7030; J7050; J7120; 90686; A4216

== ENCOUNTER → 2022-02-10 | Outpatient (CLI) | payer MEDICARE, OTHER, SELFPAY ==
--- NOTE | 2022-02-10 21:07 | CT_ITS ---
STUDY: CT CHEST, ABDOMEN T PELVIS WITH CONTRAST REASON FOR EXAM: Female, 81 years old. Fever, intermittent shortness of breath. Hypertension, heart disease. RADIATION DOSAGE (If Supplied By Facility): CTDIvol = ( 17.43 ) mGy, DLP = ( 1516.85 ) mGycm TECHNIQUE: Transaxial imaging was performed following intravenous administration of Oral and amp; IV Gastrografin and amp; 100mL Isovue-300. Multiplanar coronal and sagittal images were reformatted. Individualized dose optimization techniques were used for this CT. COMPARISON: 12/10/2016 and 02/01/2022 CT abdomen/pelvis FINDINGS: CHEST Right more than left lower lobe posterior subpleural tree-in-bud nodularity is. Left lung base atelectasis. There is no demonstrated pleural abnormality. Small pericardial effusion. Normal heart size. There are calcifications of the coronary arteries. Normal mediastinum. Normal hilar regions. Normal unenhanced pulmonary arteries. Normal aorta arch and descending thoracic aorta. Thoracic spine degenerative change and DISH. ABDOMEN Normal liver. Normal gallbladder and extrahepatic biliary system. Normal spleen. Normal pancreas. Normal bilateral adrenal glands. Normal right kidney. Chronic massive left hydronephrosis. Normal visualized stomach. Normal small intestine. Normal colon. The appendix is visualized and appears normal. Normal abdominal aorta. Normal inferior vena cava. Normal retroperitoneum. Normal abdominal wall. Degenerative changes of the lumbar spine. PELVIS Normal urinary bladder. There is no pelvic fluid. There is no pelvic lymphadenopathy or mass lesion. Fibroid uterus. Normal visualized pelvic arteries. CT/CT Chest, Abd, Pel w/Contrast IMPRESSION: Findings suggest developing bilateral pneumonia. Small pericardial effusion. No acute abnormal finding the abdomen or pelvis. Electronically Signed: Sean Douglas MD at 0:36 EDT ,
== END | disposition home or self-care (01) ==
LOC: CT 21:02
PROVIDERS: PCP Family Medicine; Visit Provider Family Medicine Geriatric Medicine
DX: R50.9 Fever, unspecified (principal)
CPT/HCPCS: 71260; 74177; Q9967; A4216

== ENCOUNTER 2022-02-11 15:16 | Day surgery (SDC) | payer MEDICARE, OTHER, SELFPAY ==
--- NOTE | 2022-02-11 | EGD_PTH ---
PATIENT: GABRIELA GAMBOA LOC: EN U#:[id number] AGE/SX: 81/F ROOM: RE02/11/[address]: Dr. Magdy Armas DO : 1940 BED: DIS: 02/11/2022 SPEC #: [id number] RECD: 02/11/22 17:18 STATUS: JONG REAnnita #: [id number] VANNA: 02/11/22 00:[address]: Magdy Armas DEPT: SURGICAL PATHOLOGY RECD BY: Harjit Aguilar ENTERED: 02/14/22 10:33 SP TYPE: EGD BIOPSY ITALIA DR: Dr. Stephanie Partida DO Tissues: A - Duodenum, NOS B - Pylorus Procedures: Surgery Specimen Level IV HEADER OPERATION: EGD ([facility] [place]) PRE-OP DIAGNOSIS: Upper GI bleed TISSUE SUBMITTED: A ? Duodenum ulcer, B ? Pre-pyloric biopsy MICROSCOPIC DIAGNOSIS A. Duodenal ulcer, biopsy: A fragment of duodenal mucosa with mild Hortencia gland hyperplasia. B. Pre-pyloric ulcer, biopsy: Mild gastritis. See microscopic description and comment. JUANA:pau 02/15/2022 COMMENT B. The results of immunohistochemistry for Helicobacter pylori will be reported separately ([id number]). MICROSCOPIC DESCRIPTION Slides are reviewed. The specimen shows fragments of gastric mucosa with chronic inflammatory cell infiltrates in the lamina propria consisting of lymphocytes and plasma cells, consistent with mild chronic gastritis. GROSS DESCRIPTION A - Received in fixative is one container labeled with the patient's name and designated duodenal ulcer. The specimen consists of one irregular fragment of light norman soft tissue that measures 0.3 x 0.3 x 0.1 cm. The specimen is totally submitted in one cassette. B - Received in fixative is one container labeled with the patient's name and designated pre-pyloric biopsy. The specimen consists of one irregular fragment of light norman soft tissue that measures 0.3 x 0.2 x 0.1 cm. The specimen is totally submitted in one cassette. / JUANA:pau 02/14/2022 TC:3 CPT: 70977 x2
[2022-02-11] MEDS: Lactated Ringers 1,000 ML 15 ML IV (15:00)
--- NOTE | 2022-02-11 15:00 | HP_ITS ---
Assessment & Plan Assessment/Plan (1) Nausea & vomiting: PLAN: The differential diagnosis for nausea vomiting could be antibiotic associated gastritis secondary to recent antibiotic for UTI and bronchitis.? Nausea vomiting also can be secondary to peptic ulcer disease, erosive esophagitis, bile induced gastritis.? We will evaluate upper GI tract for any structural or chemical abnormalities.? She was explained alternatives, risk, benefits including understanding bleeding, infection, sepsis, perforation, need for emergent .? She will have an ASA of 3. (2) Anemia: PLAN: We will evaluate upper GI tract for any signs of acute or chronic blood loss anemia.? If this is negative she may need a colonoscopy for further evaluation. HPI Consult Data Date of Consult: 02/10/22 HPI Narrative Reason for Consultation: anemia HPI Narrative: GABRIELA GAMBOA, is a 81 F who originally presented to the ED?81-year-old woman with history of urinary tract infection. She was placed on cephalexin.? She also has atherosclerotic heart disease, hypertension and hyperlipidemia.? She was? brought to the emergency department because of confusion.? She denies subjective or documented fever.? She denies shaking chills.? She denies vomiting diarrhea.? She denies cardiac respiratory symptoms.? She does complain of back/flank pain.? She does report urgency and frequency.? She has not noted blood in her urine.? Abdomen/Pelvis CT? 02/01/22 10:37 IMPRESSION: ? Severe left hydronephrosis and hydroureter in the proximal and mid segments is seen that demonstrates prominence in comparison to the prior study with wall enhancement, stranding of the perirenal fat planes visualized in the left could represent infection. ? Subtle simple cysts visualized in the right kidney. ? Distended gallbladder but no evidence of acute cholecystitis. ? Fibroid uterus seen. ? Degenerative bone changes seen. ? While in the hospital she was diagnosed with acute bronchitis and was sent home on antibiotic therapy.? She currently is in the transitional care unit on antibiotics for increased white blood cell count, fever and tachycardia.? I was asked to see her due to a worsening anemia. All other 16 review of systems are negative except as pertinent positive mentioned HPI. PFSH Medical History? Abnormal mammogram of left breast Atherosclerotic heart disease of [place] coronary artery without angina pectoris Cancer Chronic back pain Debility Deep vein thrombosis of left lower extremity (04/2020) Dislocation of left ankle joint Essential hypertension Former smoker Hyperlipidemia Hypertension Knee pain, bilateral Neck pain Osteoarthritis Renal calculi Secondary pulmonary arterial hypertension Home Medications isosorbide mononitrate 60 mg tablet,extended release 24 hr 60 mg PO DAILY chest pain 07/09/16 [History Last Taken 04/10/20] amlodipine 10 mg tablet 10 mg PO DAILY blood pressure 12/10/16 [History Last Taken 04/10/20] benazepril 40 mg tablet 40 mg PO DAILY blood pressure 12/10/16 [History Last Taken 04/29/18] simvastatin 20 mg tablet 20 mg PO QHS cholesterol 12/10/16 [History Last Taken 04/09/20] aspirin 81 mg tablet,delayed release 81 mg PO QHS heart 04/10/20 [History Last Taken 04/10/20] calcium carbonate 500 mg calcium (1,250 mg) tablet (Calcium 500) 1,200 mg PO BID Supplement 08/25/20 [History Last Taken Unknown] hydrocodone-acetaminophen 5-325mg 5mg-325mg 1 - 2 tab PO BID PRN Pain 02/13/21 [History Last Taken Unknown] magnesium oxide 500 mg tablet 500 mg PO DAILY supplement 03/31/21 [History Last Taken Unknown] zinc gluconate 50 mg tablet 50 mg PO DAILY Health maintenence 03/31/21 [History Last Taken Unknown] omeprazole 20 mg capsule,delayed release 20 mg PO BID gerd 06/22/21 [History Last Taken Unknown] baclofen 10 mg tablet 5 - 10 mg PO BID PRN spasms 12/28/21 [History Last Taken Unknown] albuterol sulfate 90 mcg/actuation aerosol inhaler (Ventolin HFA) 1 - 2 puff inhalation Q4H PRN PRN Wheezing ##1 02/04/22 [Rx Last Taken Unknown] ondansetron 4 mg disintegrating tablet 8 mg PO Q8H PRN PRN Nausea #20 tabs 02/04/22 [Rx Last Taken Unknown] furosemide 40 mg tablet (Lasix) 40 mg PO DAILY PRN swelling 02/09/22 [History Last Taken Unknown] metoprolol succinate 50 mg tablet,extended release 24 hr (Toprol XL) 50 mg PO BID BP 02/09/22 [History Last Taken Unknown] potassium chloride 20 mEq tablet,extended release 20 meq PO DAILY Hypokalemia 02/09/22 [History Last Taken Unknown] Allergy/AdvReac Type Severity Reaction Status Date / Time No Known Allergies Allergy ? ? Verified 02/09/22 08:08 Family History? Grandmother Breast cancer Surgical History? H/O parathyroidectomy (2011) History of ankle surgery History of coronary artery stent placement (09/09/03) History of herniorrhaphy History of open reduction and internal fixation (ORIF) procedure (03/2020) Social History? household members:? none housing:? condominium current occupational status:? retired pets and animals:? Yes (dog) Smoking Status:? Former smoker alcohol intake:? current ROS Constitutional Constitutional: Reports fever(s), poor appetite and weakness; Denies chills or weight gain ENT HEENT: Denies headache(s), nasal congestion or nasal discharge Cardiovascular Cardiovascular: Denies chest pain or palpitations Respiratory/Chest Respiratory/Chest: Denies cough, excessive phlegm production or shortness of breath with exertion Gastrointestinal Gastrointestinal: Reports constipation, nausea and vomiting; Denies abdominal pain Genitourinary Genitourinary: Denies dysuria Musculoskeletal Musculoskeletal: Denies joint pain or joint swelling Integumentary Integumentary: Denies rash or wounds Neurologic Neurologic: Denies focal weakness, numbness or tingling Psychiatric Psychiatric: Denies anxiety, auditory hallucinations, depression, homicidal ideation or suicidal ideation Physical Exam Const alert General Appearance: cooperative HEENT normocephalic Eyes PERRL and EOMs intact bilaterally Neck supple, no JVD and no carotid bruits Resp normal respiratory effort, normal air movement and clear to auscultation bilaterally Cardio regular rate and regular rhythm GI normal to inspection, nondistended, normoactive bowel sounds, non-tender and non-distended Extremity normal capillary refill General Extremity: Negative for edema Skin no rashes or lesions noted General Skin Exam: no breakdown Psych affect normal Appearance: appropriate Lab / Micro Data Result Diagrams: 02/11/22 05:29? 02/10/22 05:15? Labs: Laboratory Results - last 24 hr 02/10/22 18:08: ESR 96 H 02/10/22 18:08: C-React Prot Ext Range 176.00 H 02/11/22 05:29: WBC 11.4 H,?RBC 3.29 L,?Hgb 9.1 L,?Hct 28.2 L, MCV 85.7, MCH 27.7, MCHC 32.3,?RDW Std Deviation 51.9 H,?RDW Coeff of Felician[place] 16.5 H,?Plt Count 479 H, MPV 9.3, Immature Gran % (Auto) 0.600,?Neut % (Auto) 83.3 H,?Lymph % (Auto) 6.5 L, [place] % (Auto) 8.7, Eos % (Auto) 0.6, Baso % (Auto) 0.3,?Absolute Neuts (auto) 9.5 H,?Absolute Lymphs (auto) 0.74 L, Nucleated RBC % 0 Micro: Microbiology 02/10/22 17:55 ? Stool ? Stool Occult Blood (MILLI) - Final ? Occult Blood Positive
[2022-02-11 15:22] VITALS: BP 141/51; PULSE 101; RESP 16; TEMP 37.5; O2SAT 96; BMI 30.2
[2022-02-11 16:33] VITALS: BP 131/109; BP 141/51; PULSE 91; RESP 24; TEMP 39.4; O2SAT 98
[2022-02-11 16:39] VITALS: BP 100/45; BP 141/51; PULSE 92; RESP 18; O2SAT 94
[2022-02-11 16:45] VITALS: BP 113/60; BP 141/51; PULSE 97; RESP 24; O2SAT 95
--- NOTE | 2022-02-11 16:45 | OP.EGD_ITS ---
Patient Name: Yulia Ramon Procedure Date: 02/11/2022 3:54 PM Date of : 1940 Age: 81 Procedure: Upper GI endoscopy Indications: Epigastric abdominal pain, Iron deficiency anemia, Failure to respond to medical treatment Providers: Magdy Armas DO Medicines: Monitored Anesthesia Care Patient Profile: This is an 81 year old female. Refer to note in patient chart for documentation of history and physical. Patient has symptoms of chronic epigastric abdominal pain. Complications: No immediate complications. Procedure: Pre-Anesthesia Assessment: - Prior to the procedure, a History and Physical was performed, and patient medications and allergies were reviewed. The risks and benefits of the procedure and the sedation options and risks were discussed with the patient. All questions were answered and informed consent was obtained. Patient identification and proposed procedure were verified by the physician in the pre-procedure area. Mental Status Examination: alert and oriented. Airway Examination: normal oropharyngeal airway and neck mobility. Respiratory Examination: clear to auscultation. CV Examination: normal. Prophylactic Antibiotics: The patient does not require prophylactic antibiotics. Prior Anticoagulants: The patient has taken no previous anticoagulant or antiplatelet agents. After reviewing the risks and benefits, the patient was deemed in satisfactory condition to undergo the procedure. The anesthesia plan was to use monitored anesthesia care (MAC). Immediately prior to administration of medications, the patient was re-assessed for adequacy to receive sedatives. The heart rate, respiratory rate, oxygen saturations, blood pressure, adequacy of pulmonary ventilation, and response to care were monitored throughout the procedure. The physical status of the patient was re-assessed after the procedure. After obtaining informed consent, the endoscope was passed under direct vision. Throughout the procedure, the patient's blood pressure, pulse, and oxygen saturations were monitored continuously. The gastroscope was introduced through the mouth, and advanced to the second part of duodenum. The upper GI endoscopy was accomplished without difficulty. The patient tolerated the procedure well. Scope In: 4:21:58 PM Scope Out: 4:30:15 PM Total Procedure Duration Time 0 hours 8 minutes 17 seconds Findings: Grade I varices were found in the lower third of the esophagus. They were 5 mm in largest diameter. Multiple localized, 5 mm non-bleeding erosions were found in the entire examined stomach. There were no stigmata of recent bleeding. A small hiatal hernia was present. Diffuse severe inflammation characterized by congestion (edema), erosions, erythema and friability was found in the entire examined stomach. Biopsies were taken with a cold forceps for histology. Verification of patient identification for the specimen was done. Estimated blood loss was minimal. One oozing cratered duodenal ulcer with a visible vessel was found in the duodenal bulb. The lesion was 6 mm in largest dimension. Coagulation for hemostasis using monopolar probe was successful. Biopsies were taken with a cold forceps for histology. Verification of patient identification for the specimen was done. Estimated blood loss was minimal. Impression: - Grade I esophageal varices. - Non-bleeding erosive gastropathy. - Small hiatal hernia. - Gastritis. Biopsied. - One oozing duodenal ulcer with a visible vessel. Treated with a monopolar probe. Biopsied. Recommendation: - Return patient to [facility] for [facility] care. - Resume previous diet. - Use Creon 3 tablets PO TID with meals daily. - Use metoclopramide 5 mg PO QID; 30 min AC and HS for 2 weeks. -Ultrasound of the right upper quadrant regarding the varices that were seen to see if there is any signs of of portal vein or hepatic vein thrombosis. CT scan did not show any signs of of cirrhosis or portal hypertension. I do not think she has liver disease. I think this is likely secondary to age and venous congestion at the level of the esophagus. - Continue present medications. Procedure Code(s): --- Professional --- 80360, 59, Esophagogastroduodenoscopy, flexible, transoral; with control of bleeding, any method 44197, 51, Esophagogastroduodenoscopy, flexible, transoral; with biopsy, single or multiple CPT copyright 2017 [employer]. All rights reserved. The codes documented in this report are preliminary and upon remote inpatient coder review may be revised to meet current compliance requirements. Madgy Armas DO 02/11/2022 4:45:06 PM This report has been signed electronically. Number of Addenda: 0 Note Initiated On: 02/11/2022 3:54 PM
--- NOTE | 2022-02-11 16:46 | OP.CCLET_ITS ---
02/11/2022 Stephanie Partida [address] [facility] [place] [address] Re : Upper GI endoscopy procedure for Yulia Ramon Dear Dr. Partida This procedure was performed on Friday, February 11, 2022. My impressions and recommendations are as follows: Impressions : - Grade I esophageal varices. - Non-bleeding erosive gastropathy. - Small hiatal hernia. - Gastritis. Biopsied. - One oozing duodenal ulcer with a visible vessel. Treated with a monopolar probe. Biopsied. Recommendations : - Return patient to [facility] for ongoing care. - Resume previous diet. - Use Creon 3 tablets PO TID with meals daily. - Use metoclopramide 5 mg PO QID; 30 min AC and HS for 2 weeks. -Ultrasound of the right upper quadrant regarding the varices that were seen to see if there is any signs of of portal vein or hepatic vein thrombosis. CT scan did not show any signs of of cirrhosis or portal hypertension. I do not think she has liver disease. I think this is likely secondary to age and venous congestion at the level of the esophagus. - Continue present medications. My findings are described in the full procedure note, which is enclosed. If I can be of further assistance, please feel free to contact me at . Sincerely, Magdy Friend, 02/11/2022 4:45:06 PM This report has been signed electronically.
[2022-02-11 16:49] VITALS: BP 128/60; BP 141/51; PULSE 95; RESP 18; TEMP 37.2; O2SAT 93
--- NOTE | 2022-02-11 17:00 | IMM_PTH ---
PATIENT: GABRIELA GAMBOA LOC: EN U#:[id number] AGE/SX: 81/F ROOM: RE02/11/[address]: Dr. Magdy Armas DO : 1940 BED: DIS: 02/11/2022 SPEC #: [id number] RECD: 02/14/22 10:12 STATUS: JONG REQ #: [id number] VANNA: 02/11/22 17:[address]: Magdy Armas DEPT: IMMUNOHISTOCHEMISTRY RECD BY: Jasmin Diaz ENTERED: 02/14/22 10:13 SP TYPE: IMMUNO OTHR DR: Dr. Stephanie Partida DO Tissues: B - Pyloric portion of stomach Procedures: H Pylori (initial) PHYSICIAN & INSTITUTION [place] [address] SPECIMEN INFORMATION: Tissue Source: B ? Pre-pyloric biopsy Clinical Info: Upper GI bleed Specimen Number: [id number] CPT code: 48488 METHODOLOGY: Deparaffinized sections of prefer/formalin-fixed tissue or PAP/DQ stained slides are incubated with monoclonal/polyclonal antibodies/oligonucleotide probes. Localization is made via biotin free immunoperoxidase method. Appropriate controls are performed and reacted as expected. Results on target cell population are indicated in the following table: RESULTS: ANTIBODY / CLONE RESULT Block B H Pylori (polyclonal) negative These tests were developed and their performance characteristics determined by [facility]. They may not have been cleared or approved by the U.S. Food and Drug Administration. The FDA has determined that such clearance or approval is not necessary. The above immunohistochemical/dualISH markers are ordered and reviewed by the Pathologist. INTERPRETATION: B. Pre-pyloric, biopsy: Negative for Helicobacter pylori organisms. SJ:pau 02/15/2022
== END 2022-02-11 17:07 | disposition home or self-care (01) ==
LOC: EN 15:18 → AC 15:18
PROVIDERS: PCP Family Medicine; Referring Provider Family Medicine; Visit Provider Internal Medicine Gastroenterology
PROC: 0DJ08ZZ Inspection of Upper Intestinal Tract, Via Natural or Artificial Opening Endoscopic (ICD-10-PCS; CPT 43235; principal; 2022-02-11 16:55)
DX: I85.00 Esophageal varices without bleeding (principal); I25.10 Atherosclerotic heart disease of native coronary artery without angina pectoris; N28.1 Cyst of kidney, acquired; R31.9 Hematuria, unspecified; J20.9 Acute bronchitis, unspecified; E78.5 Hyperlipidemia, unspecified; Z86.718 Personal history of other venous thrombosis and embolism; R41.0 Disorientation, unspecified; I10 Essential (primary) hypertension; R53.81 Other malaise; K29.70 Gastritis, unspecified, without bleeding; M25.561 Pain in right knee; K26.9 Duodenal ulcer, unspecified as acute or chronic, without hemorrhage or perforation; K44.9 Diaphragmatic hernia without obstruction or gangrene; Z80.3 Family history of malignant neoplasm of breast; N13.4 Hydroureter; D25.9 Leiomyoma of uterus, unspecified; G89.29 Other chronic pain; Z87.891 Personal history of nicotine dependence; M25.562 Pain in left knee; Z79.82 Long term (current) use of aspirin; D50.9 Iron deficiency anemia, unspecified; N13.30 Unspecified hydronephrosis
CPT/HCPCS: 43239; 43255; 88305; 88342; J7120

== ENCOUNTER → 2022-03-03 | Outpatient (CLI) | payer MEDICARE, OTHER, SELFPAY | END | disposition home or self-care (01) | LOC: LABSPEC 11:49 | PROVIDERS: PCP Family Medicine; Visit Provider Family Medicine | DX: N39.0 Urinary tract infection, site not specified (principal) | CPT/HCPCS: 87086 ==

== ENCOUNTER → 2022-03-10 | Outpatient (CLI) | payer MEDICARE, OTHER, SELFPAY | END | disposition home or self-care (01) | LOC: LABSPEC 16:37 | PROVIDERS: PCP Family Medicine; Visit Provider Urology | DX: N30.01 Acute cystitis with hematuria (principal) | CPT/HCPCS: 87086 ==

== ENCOUNTER 2022-03-30 06:00 | Inpatient (IN) | payer MEDICARE, OTHER, SELFPAY ==
[2022-03-17 11:02] LABS: Hematocrit 35.2 % (37-47); Hemoglobin 11.2 g/dL (12.0-15.0); Mean Corp Hgb Conc 31.8 g/dL (32-36); Mean Corpuscular Hgb 28.4 pg (27.0-32.0); Mean Corpuscular Volume 89.1 fL (81-99); Mean Platelet Vol. 9.1 fl (6.2-12.0); Platelet Count 336 K/mm3 (150-450); RBC Distribution Width CV 17.2 % (11.6-14.6); RBC Distribution Width SD 57.4 fl (35.1-43.9); Red Blood Count 3.95 M/mm3 (4.2-5.4); White Blood Count 7.8 K/mm3 (4.4-11.0)
[2022-03-30] VITALS (22 sets, daily range): BP systolic 106–130; BP diastolic 52–92; PULSE 71–85; RESP 14–18; TEMP 36–36.8; O2SAT 95–100; BMI 27.3; BMI 27.6
[2022-03-30] MEDS: Lactated Ringers 1,000 ML 15 ML IV ×3 (06:20→12:59)
--- NOTE | 2022-03-30 07:25 | PCM.HP.STD ---
HPI - General General Date of Admission: 03/30/22 Chief Complaint: Left infected kidney HPI Narrative GABRIELA GAMBOA, is a 81 F who presents for a left nephro ureterectomy for a nonfunctioning left infected kidney. [facility] Medical History (Updated 03/16/22 @ 13:22 by Genesis Gaviria) Abnormal mammogram of left breast Arthritis Atherosclerotic heart disease of [place] coronary artery without angina pectoris Cancer Chronic back pain Debility Deep vein thrombosis of left lower extremity (04/2020) Dislocation of left ankle joint Essential hypertension Former smoker Gout Hyperlipidemia Hypertension Knee pain, bilateral Neck pain Osteoarthritis Renal calculi Secondary pulmonary arterial hypertension Sleep apnea Wears glasses Home Medications isosorbide mononitrate 60 mg tablet,extended release 24 hr 60 mg PO DAILY chest pain 07/09/16 [History Last Taken 03/29/22] amlodipine 10 mg tablet 10 mg PO DAILY blood pressure 12/10/16 [History Last Taken 03/30/22] benazepril 40 mg tablet 40 mg PO DAILY blood pressure 12/10/16 [History Last Taken 03/30/22] simvastatin 20 mg tablet 20 mg PO QHS cholesterol 12/10/16 [History Last Taken 03/29/22] aspirin 81 mg tablet,delayed release 81 mg PO QHS heart 04/10/20 [History Last Taken 03/16/22] calcium carbonate 500 mg calcium (1,250 mg) tablet (Calcium 500) 1,200 mg PO BID Supplement 08/25/20 [History Last Taken 03/29/22] zinc gluconate 50 mg tablet 50 mg PO DAILY Health maintenence 03/31/21 [History Last Taken 03/29/22] omeprazole 20 mg capsule,delayed release 20 mg PO BID gerd 06/22/21 [History Last Taken 03/30/22] metoprolol succinate 50 mg tablet,extended release 24 hr (Toprol XL) 50 mg PO BID BP 02/09/22 [History Last Taken 03/30/22] acetaminophen 500 mg tablet 1,000 mg PO Q6H PRN PRN Pain Score 1-3 #0 tabs 02/22/22 [Rx Last Taken Unknown] albuterol sulfate 90 mcg/actuation aerosol inhaler (Ventolin HFA) 2 puff inhalation Q4H PRN PRN SOB &/OR WHEEZING #0 grams 02/22/22 [Rx Last Taken Unknown] baclofen 10 mg tablet 10 mg PO TID PRN PRN Muscle Spasm #0 tabs 02/22/22 [Rx Last Taken 03/28/22] potassium chloride 20 mEq tablet,extended release 20 meq PO DAILY Hypokalemia 30 days #30 tabs 02/22/22 [Rx Last Taken 03/29/22] furosemide 20 mg tablet 20 mg PO DAILY Check with primary doctor 03/16/22 [History Last Taken 03/29/22] Allergy/AdvReac Type Severity Reaction Status Date / Time No Known Allergies Allergy Verified 03/30/22 06:30 Family History Grandmother Breast cancer Surgical History (Updated 03/16/22 @ 13:22 by Genesis Gaviria) H/O parathyroidectomy (2011) History of ankle surgery History of coronary artery stent placement (09/09/03) History of coronary artery stent placement History of herniorrhaphy History of open reduction and internal fixation (ORIF) procedure (03/2020) History of tonsillectomy and adenoidectomy History of wisdom tooth extraction Social History household members: none [facility] current occupational status: retired pets and animals: Yes (dog) Smoking Status: Former smoker alcohol intake: current Vital Signs Vital Signs Vital Signs: 03/30/22 06:34 03/30/22 06:34 Temperature 96.8 F L Temperature Source Temporal Pulse Rate 71 Respiratory Rate 18 Respiratory Pattern Normal Blood Pressure 115/52 L Blood Pressure Mean 73 Blood Pressure Source Monitor Blood Pressure Position Semi-Fowlers Blood Pressure Location Right Arm Pulse Ox 98 Oxygen Delivery Method Room Air Weight Weight: 68 kg Body Mass Index (BMI) 27.3 Results Lab / Micro Data Result Diagrams: 03/17/22 10:13
--- NOTE | 2022-03-30 07:30 | KI_PTH ---
PATIENT: GABRIELA GAMBOA LOC: MS3 U#:[id number] AGE/SX: 81/F ROOM: MS315 RE03/30/[address]: Dr. Hollis Hamilton MD : 1940 BED: 1 DIS: 04/02/2022 SPEC #: [id number] RECD: 03/30/22 10:48 STATUS: JONG MILLS #: [id number] VANNA: 03/30/22 07:[address]: Hollis Hamilton DEPT: SURGICAL PATHOLOGY RECD BY: Soo Willson ENTERED: 03/30/22 11:55 SP TYPE: KIDNEY BX OTHR DR: Dr. Stephanie Partida DO Tissues: Kidney, NOS Procedures: Surgery Specimen Level IV HEADER OPERATION: Laparoscopic robotic radical left nephrectomy and ureterectomy PRE-OP DIAGNOSIS: Acute cystitis without hematuria, abnormal radiologic findings on diagnostic imaging of left kidney TISSUE SUBMITTED: Left kidney and ureter MICROSCOPIC DIAGNOSIS Left kidney and ureter, radical left nephrectomy and ureterectomy: Extensive acute and chronic inflammation. See comment. /JUANA 04/01/22 COMMENT Renal cortex is markedly atrophic. Glomeruli show extensive hyalinization. MICROSCOPIC DESCRIPTION Slides are reviewed. GROSS DESCRIPTION Received is one container labeled with patient?s name and designated ?Left kidney and ureter?. Received is a radical left nephrectomy and ureterectomy, consisting of left kidney with attached perirenal adipose tissue, attached portion of ureter and a detached segment of ureter weighing 1109 gm. The kidney with perirenal adipose tissue measures 22 x 11 x 8 cm. Attached segment of ureter measures 6.0 cm in length 1.5 cm in diameter. The kidney measures 17 x 11 x 6 cm. Detached segment of ureter measures 7 cm in length and 0.8 cm in diameter, one end shows a clip. Sections of kidney reveal the pelvocalyceal system is diffusely dilated and replaced by multiple cysts measuring 2.5 cm to 9 cm in greatest dimension and filled with purulent material. The mucosa of the collecting system is padilal/norman in color. No mass lesions are identified. Attached segment of ureter is also filled with purulent material. Renal cortex is markedly atrophic and could not be recognized. Calculi are not present. Adrenal gland is not present. No lymph nodes are identified. Casting And Curing Operator sections are submitted in 9 cassettes as follows: 1 - detached segment of ureter, both ends, end without clip is inked black, 2 - more sections detached segment of ureter, 3 & 4 ? attached segment of ureter, 5- renal sinus and vascular resection margins, 6 -9 dilated and cystic pelvocalyceal system including renal cortex, (cassette 9 also contains the perirenal adipose tissue). /SJ:cc 03/30/2022 TC:2 CPT: 22966
--- NOTE | 2022-03-30 07:44 | DCINST_ITS ---
Discharge Instructions Diet Discharge Diet: No restrictions, Light diet - advance as tolerated and Soft diet Activity Discharge Activity: May Not Drive Lifting Restrictions: no lifting. Dressing / Incision Call your doctor if you observe: Fever of 101 or Higher Cleanse incision/area with: Soap & Water Follow Up Care Please Follow Up With: Hollis Hamilton MD When: 2 weeks Test Results: Test results from this visit will be discussed in further detail at your follow- up appointment, if applicable. Discharge Plan Admission Admit Date/Time: 03/30/22 06:00 Primary Reason for Your Visit: left nephrouretectomy Attending Provider: Hollis Hamilton Primary Care Provider: Stephanie Partida Discharge Orders/Prescriptions Prescriptions: New docusate sodium [Colace] 100 mg capsule 100 mg PO BID Qty: 20 0RF oxycodone-acetaminophen 5-325 mg tablet 1 tab PO Q6H PRN (Reason: pain) 7 Days Qty: 14 0RF Continued calcium carbonate [Calcium 500] 500 mg calcium (1,250 mg) tablet 1,200 mg PO BID zinc gluconate 50 mg tablet 50 mg PO DAILY omeprazole 20 mg capsule,delayed release(DR/EC) 20 mg PO BID isosorbide mononitrate 60 MG tablet extended release 24 hr 60 mg PO DAILY amlodipine 10 MG tablet 10 mg PO DAILY Label Comments: simvastatin 20 MG tablet 20 mg PO QHS benazepril 40 MG tablet 40 mg PO DAILY Label Comments: aspirin 81 MG tablet,delayed release (DR/EC) 81 mg PO QHS metoprolol succinate [Toprol XL] 50 mg tablet extended release 24 hr 50 mg PO BID acetaminophen 500 mg Tablet 1,000 mg PO Q6H PRN PRN (Reason: Pain Score 1-3) Qty: 0 0RF baclofen 10 mg Tablet 10 mg PO TID PRN PRN (Reason: Muscle Spasm) Qty: 0 0RF albuterol sulfate [Ventolin HFA] 90 mcg/actuation Hfa Aerosol Inhaler 2 puff inhalation Q4H PRN PRN (Reason: SOB &/OR WHEEZING) Qty: 0 0RF potassium chloride 20 mEq tablet extended release 20 meq PO DAILY 30 Days Qty: 30 0RF furosemide 20 mg tablet 20 mg PO DAILY Referrals / Follow Up: Hollis Hamilton MD [Med Staff - Active Staff] - Stephanie Partida DO [Primary Care Provider] -
[2022-03-30] MEDS: Cefazolin 2 GM in 0.9% Normal Saline 100 ML IV (07:50)
--- NOTE | 2022-03-30 09:58 | OP.PCM_ITS ---
Report of Operation Date of Procedure: 03/30/22 Pre-Operative Diagnosis: Nonfunctioning infected kidney and ureter Post-Operative Diagnosis: The same Surgery/Procedure Performed:: Laparoscopic robotic assisted left nephro ureterectomy Description of Surgical Findings:: Patient was taken back to the operating room at a smooth induction of general anesthesia she was placed in flank position for approach to the left kidney laparoscopically. She underwent general anesthesia with intubation we position the patient and flank with the table flexed and then the abdomen was prepped and draped in usual sterile fashion. I went in with the umbilical trocar right arm trocar left arm trocar and a fourth arm trocar the once the ports were placed under direct visualization then we docked the robot I first and start started the procedure by reflected the colon off the kidney she had a very large fluid- filled kidney on CAT scan reviewed she had a completely fluid-filled kidney identified renal artery 1 vein I work to the colon and reflected the colon off the kidney starting superiorly next of the spleen first reflected the spleen off the superior aspect of the kidney using the bipolar and progress for instruments and then I worked my way along the white line of [place] reflecting the the colon off the kidney all the way down to the pelvis once the colon was reflected out the kidney then I started elevating kidney up and started dissecting the fat off the kidney pretty adherent fat on the kidney itself took bipolar dissection very carefully to get underneath the kidney finally we got underneath the tail of Gerota's and elevated this up and then we identified a very large serpentine ureter that was 4 times normal size this was also filled with purulent pus seen on CAT scan. I got underneath this we then docked the fourth arm and then the used a fourth arm to retract the entire kidney and ureter up and then we marched along the underside of the kidney until we came and identified the renal artery renal arteries identified 2 clips were put down 1 clip up and it was then transected with the scissors we then came to the renal vein and we used a Endo REUBEN with vascular loads to take this. Then we marched along the adrenal gland was not removed it was left intact and then we went above the adrenal gland and the superior aspect the kidney was dissected off the spleen and off the lateral sidewall and then we dissected out all the kidney off the lateral sidewall worked our way in a way down inferiorly that we got to the ureter and as we are pulling on the ureters is a small tear of the ureter and some purulent fluid spilled out this was immediately recognized clamps were then placed on the ureter on both sides we irrigated out the area and then we continued dissecting the ureter all the way down to the bladder to do a complete almost complete removal of the ureter down to the bladder. Once this was done then the ureter was transected then the entire robot was undocked the kidney was put in Endo Catch bag we opened up and extraction site in the lower abdomen and pulled out the kidney and the in the lower abdomen and then we closed the fascia with 0 Vicryl and then we looked back in the abdomen we copiously irrigated there is no signs of bleeding or infection and then we closed the aerocele port with a Fidel Nguyen stitch and then patient's then we deflated the abdomen patient's incisions are being closed right now and she is being reversed from anesthesia minimal blood loss and successful removal of a very large infected purulent infected kidney. Surgeon: Hollis Hamilton Type of Anesthesia: General Drains: gómez Admit VTE Documentation VTE Present on Admission: No VTE Mechan Device Prophylaxis: SCD's
[2022-03-30] MEDS: Bupivacaine 0.25% 30 ML Vial (10:07)
--- NOTE | 2022-03-30 12:44 | SUR.PHASEI ---
CIPRO IV NOT GIVEN D/T PHARMACY SAYING IT IS TO BE GIVEN SO MANY HOURS AFTER CEFALOZOLIN EVEN THOUGH IT WAS TIMED. I CALLED DR. STRINGER, AND HE SAID IT DIDN'T HAVE TO BE GIVEN NOW.
[2022-03-30] MEDS: HYDROcodone Bitartrate/Apap 5/325 Tablet PO ×2 (13:45→20:47)
[2022-03-30] MEDS: Morphine 2 MG/ML Syringe IV (15:12)
[2022-03-30] MEDS: 0.9% Saline Lock 10 ML Syringe IV (15:13)
[2022-03-30] MEDS: Ciprofloxacin 400 MG/200 ML BAG 200 MG IV (15:59)
[2022-03-30] MEDS: Atorvastatin Calcium 10 MG Tablet PO (20:47)
[2022-03-30] MEDS: Pantoprazole Sodium 20 MG Tablet PO (20:47)
[2022-03-30] MEDS: Docusate Sodium 100 MG Capsule 200 MG PO (20:47)
[2022-03-30] MEDS: Metoprolol(XL)Succ 50 MG Tablet PO (20:47)
[2022-03-30] MEDS: 0.9% Normal Saline 1,000 ML 75 ML IV (20:48)
[2022-03-31] VITALS (9 sets, daily range): BP systolic 93–118; BP diastolic 42–63; PULSE 68–74; RESP 18; TEMP 36.6–37.1; O2SAT 96–97
[2022-03-31] MEDS: Acetaminophen 325 MG Tablet PO (02:09)
[2022-03-31] MEDS: Ciprofloxacin 400 MG/200 ML BAG 200 MG IV (04:57)
[2022-03-31 06:38] LABS: Hematocrit 33.7 % (37-47); Hemoglobin 10.7 g/dL (12.0-15.0); Mean Corp Hgb Conc 31.8 g/dL (32-36); Mean Corpuscular Hgb 28.5 pg (27.0-32.0); Mean Corpuscular Volume 89.6 fL (81-99); Mean Platelet Vol. 9.3 fl (6.2-12.0); Platelet Count 232 K/mm3 (150-450); RBC Distribution Width CV 15.9 % (11.6-14.6); RBC Distribution Width SD 52.7 fl (35.1-43.9); Red Blood Count 3.76 M/mm3 (4.2-5.4); White Blood Count 12.8 K/mm3 (4.4-11.0)
[2022-03-31 07:05] LABS: Anion Gap 3 (5-15); BUN 15 mg/dL (7-18); BUN/Creat Ratio 18.3 RATIO (10-20); Calcium,Total 8.7 mg/dL (8.5-10.1); Chloride 105 mmol/L (98-107); Creatinine, Serum 0.82 mg/dL (0.55-1.02); EST Glomerular Filtration Rate 71 mL/min (>60); Est Glom Filt Rate - Afr Amer 86 mL/min (>60); Glucose 165 mg/dL (74-106); Potassium 4.3 mmol/L (3.5-5.1); Sodium Level 135 mmol/L (136-145)
--- NOTE | 2022-03-31 07:39 | PN.URO_ITS ---
Subjective Subjective Status post left nephro ureterectomy for a dilated nonfunctioning infected kidney. Doing well, is out of bed. DC Lester today advance to regular diet Hep- Lock IV fluids probably home tomorrow. Objective Data Objective Data Vital Signs: Vital Signs Temp Pulse Resp BP Pulse Ox O2 Del Method O2 Flow Rate 98.8 F 74 18 118/63 96 Room Air 2 03/31/22 02:05 03/31/22 02:05 03/31/22 02:05 03/31/22 02:05 03/31/22 02:05 03/31/22 02:05 03/30/22 12:30 Oxygen Flow Rate (L/min) 2 Oxygen Delivery Method Room Air Weight: 68 kg Body Mass Index (BMI) 27.6 Intake & Output: Intake and Output for Last 24 Hours 03/29/22 03/30/22 03/31/22 23:59 23:59 23:59 Intake Total 2732.5 / 2732.5 200 / 200 Output Total 1000 / 1000 550 / 550 Balance 1732.5 / 1732.5 -350 / -350 Medical Nutrition Assessment Dietitian: Malnutrition Criteria Met Start: 03/30/22 16:14 Freq: Status: Active Protocol: Document 03/30/22 16:14 RMA (Rec: 03/30/22 16:14 RMA [id number]) Nutrition Malnutrition Evidence of Malnutrition Exists Yes Malnutrition (severe): Acute Illness/Injury Evidenced By Suboptimal Energy Intake ( Severe),Weight Loss (Severe) Clinical Problem Acute Disease or Injury Related Malnutrition Etiology Severe protein-calorie malnutrition in the context of acute illness related to decreased appetite and inadequate oral intake Signs/Symptoms as evidenced by ~7% wt loss x past 1-2 months and oral intake meeting less than 50% estimated nutrition needs x past 1-2 months. Status Active Problem Recommendation Dietitian Recommendations/Changes Continue liberalized regular diet. Offer ONS as per pt preference if PO inadequate at meals. Lab / Micro Data Result Diagrams: 03/31/22 06:15 03/31/22 06:15 Labs: Laboratory Results - last 24 hr 03/31/22 06:15: WBC 12.8 H, RBC 3.76 L, Hgb 10.7 L, Hct 33.7 L, MCV 89.6, MCH 28.5, MCHC 31.8 L, RDW Std Deviation 52.7 H, RDW Coeff of Feliciano 15.9 H, Plt Count 232, MPV 9.3 03/31/22 06:15: Sodium 135 L, Potassium 4.3, Chloride 105, Carbon Dioxide 27.0, Anion Gap 3 L, BUN 15, Creatinine 0.82, Estim Creat Clear Calc 40.60, Est GFR (MDRD) Af Amer 86, Est GFR (MDRD) Non-Af 71, BUN/Creatinine Ratio 18.3, Glucose 165 H, Calcium 8.7
[2022-03-31] MEDS: HYDROcodone Bitartrate/Apap 5/325 Tablet PO ×3 (08:00→23:51)
[2022-03-31] MEDS: Furosemide 20 MG Tablet PO (08:08)
[2022-03-31] MEDS: amLODIPine 10 MG Tablet PO (08:08)
[2022-03-31] MEDS: Potassium Chloride Oral Tablet 20 MEQ PO (08:08)
[2022-03-31] MEDS: Lisinopril 40 MG Tablet PO (08:08)
[2022-03-31] MEDS: Metoprolol(XL)Succ 50 MG Tablet PO (08:09)
[2022-03-31] MEDS: Docusate Sodium 100 MG Capsule 200 MG PO ×2 (08:09→21:57)
[2022-03-31] MEDS: Pantoprazole Sodium 20 MG Tablet PO ×2 (08:09→21:57)
[2022-03-31] MEDS: Isosorbide Mononitrate 60 MG Tablet PO (08:09)
--- NOTE | 2022-03-31 13:40 | CASEMGMT ---
RN CM MANAGER FILM CM to room to meet with patient for initial transition planning/care coordination assessment. RN NANETTE introduced self and role at [facility]. Pt voices understanding and consents to assessment at this time. Pt sitting in chair in room in no distress at this time. Pt's friend, Valorie, in room visiting and pt agreeable to her being present during assessment. Pt is A/O at this time and answers all questions appropriately. Care providers, pharmacy, and demographics verified/updated at this time. PCP: Dr Partida Specialists: Dr Rodarte, pain mgmt, Dr Hamilton-urology Preferred Pharmacy: [facility] Insurance: [facility], AARP Prescription Benefit: yes Living Will/HPOA: Pt states she has LW but does not have HCPOA. She would like to complete these while @ [facility] and states she would like her friend, Jo, to be her POA. She states Jo lives in [place], but she does not know her address. Her friend is supposed to be calling her back today and she states she will get that info from her when she calls. LNOK: Brother, Carlos. Pt states she had 2 children, but they are both . Living Arrangements: Patient lives alone in a 1 story home w/basement with 3 steps and railing to enter the home. Patient states she is independent at home. She hires a cleaning lady to come once a month. Transportation: self, friends DME: Patient states she has shower chair, grab bars, cane and walker at home. HHC/SNF: Hx of going to [facility] TCU and has had [facility] HHC in the past. Pt states she was going to [facility] for OP therapy up until a couple weeks ago and plans to resume that once she recovers from surgery. Pt wishes to return home and states has no concerns with going home at time of discharge. CM to follow for any discharge planning/needs. Pt voices no further concerns/needs at this time. Advised pt to ask for CM if any further questions/concerns/needs arise. Voices understanding. Plan: Home [place] BAILEYN CATRACHITO FITZPATRICK
--- NOTE | 2022-03-31 14:08 | CHAPLAIN ---
Type of Pastoral Visit _x__ Initial Visit ___ Follow-up Visit ___ On-call Visit ___ General Patient Visit ___ Spiritual Assessment ___ Family Conference ___ Bereavement ___ Rapid Response ___ Code Blue ___ Other (describe below) Pastoral Care Referral From _x__ Patient ___ Family ___ Nurse ___ Physician ___ Hide Dropper ___ Registered Nurse Fetal ___ Other (describe below) Sacrament/Intervention _x__ Active listening ___ Anointing ___ Confucianism ___ Bereavement ___ Communion ___ Daina exploration ___ ___ Life review _x__ Prayer ___ Reconciliation ___ Sacrament of Sick _x__ Supportive presence ___ Wedding ___ Other (describe below) Pastoral Comments patient has been seen before by this supervisory geographer in a previous visit; pt remembers this supervisory geographer; pt explains her lunch; pt is waiting for discussion on follow up care; pt has friends visiting that will be supportive; pt welcomes presence and prayer; no other needs
[2022-03-31] MEDS: Atorvastatin Calcium 10 MG Tablet PO (21:57)
[2022-04-01] VITALS (11 sets, daily range): BP systolic 101–143; BP diastolic 55–73; PULSE 69–96; RESP 16–18; TEMP 36.8–37; O2SAT 95–96
[2022-04-01] MEDS: amLODIPine 10 MG Tablet PO (10:08)
[2022-04-01] MEDS: Potassium Chloride Oral Tablet 20 MEQ PO (10:08)
[2022-04-01] MEDS: Furosemide 20 MG Tablet PO (10:08)
[2022-04-01] MEDS: Docusate Sodium 100 MG Capsule 200 MG PO ×2 (10:08→22:07)
[2022-04-01] MEDS: Isosorbide Mononitrate 60 MG Tablet PO (10:08)
[2022-04-01] MEDS: Lisinopril 40 MG Tablet PO (10:09)
[2022-04-01] MEDS: Pantoprazole Sodium 20 MG Tablet PO ×2 (10:09→22:09)
--- NOTE | 2022-04-01 11:37 | CASEMGMT ---
Social Work SW assisted pt in completing Healthcare POA and LW papers. Pt listed friend Eloisa Castanon as POA and her brother Carlos as the alternate. SW gave pt originals and copies, and copies placed in the chart. MYA Kuo
[2022-04-01] MEDS: Polyethylene Glycol 3350 17 GM PACKET PO (17:59)
[2022-04-01] MEDS: 0.9% Saline Lock 10 ML Syringe IV (17:59)
[2022-04-01] MEDS: HYDROcodone Bitartrate/Apap 5/325 Tablet PO (22:06)
[2022-04-01] MEDS: Atorvastatin Calcium 10 MG Tablet PO (22:08)
[2022-04-01] MEDS: Metoprolol(XL)Succ 50 MG Tablet PO (22:09)
[2022-04-02 02:00] VITALS: BP 140/66; PULSE 79; RESP 18; TEMP 36.8; O2SAT 94
[2022-04-02 03:00] VITALS: BP 143/73; PULSE 96; RESP 18; TEMP 37; O2SAT 95
[2022-04-02 08:14] VITALS: PULSE 88
[2022-04-02] MEDS: Isosorbide Mononitrate 60 MG Tablet PO (08:14)
[2022-04-02] MEDS: Metoprolol(XL)Succ 50 MG Tablet PO (08:14)
[2022-04-02] MEDS: Potassium Chloride Oral Tablet 20 MEQ PO (08:14)
[2022-04-02] MEDS: Pantoprazole Sodium 20 MG Tablet PO (08:14)
[2022-04-02] MEDS: Lisinopril 40 MG Tablet PO (08:14)
[2022-04-02] MEDS: Furosemide 20 MG Tablet PO (08:14)
[2022-04-02] MEDS: amLODIPine 10 MG Tablet PO (08:15)
[2022-04-02] MEDS: Docusate Sodium 100 MG Capsule 200 MG PO (08:15)
[2022-04-02 08:45] VITALS: BP 158/75; PULSE 88; RESP 18; TEMP 36.9; O2SAT 96
[2022-04-02 09:00] VITALS: BP 158/75; PULSE 88; RESP 18; TEMP 36.9; O2SAT 96
--- NOTE | 2022-04-02 09:58 | PCM.PN.GU ---
Subjective Subjective doing well discharge home today +_BM, reg diet, no pain incision clean and intact Objective Data Objective Data Vital Signs: Vital Signs Temp Pulse Resp BP Pulse Ox O2 Del Method O2 Flow Rate 98.6 F 88 18 143/73 H 95 Room Air 2 04/02/22 03:00 04/02/22 08:14 04/02/22 03:00 04/02/22 03:00 04/02/22 03:00 04/02/22 03:00 04/02/22 03:00 Oxygen Flow Rate (L/min) 2 Oxygen Delivery Method Room Air Weight: 68 kg Body Mass Index (BMI) 27.6 Intake & Output: Intake and Output for Last 24 Hours 03/31/22 04/01/22 04/02/22 23:59 23:59 23:59 Intake Total 3415 / 3415 Output Total 2350 / 2350 750 / 750 Balance 1065 / 1065 -750 / -750 Medical Nutrition Assessment Dietitian: Malnutrition Criteria Met Start: 03/30/22 16:14 Freq: Status: Active Protocol: Document 03/30/22 16:14 RMA (Rec: 03/30/22 16:14 RMA [id number]) Nutrition Malnutrition Evidence of Malnutrition Exists Yes Malnutrition (severe): Acute Illness/Injury Evidenced By Suboptimal Energy Intake ( Severe),Weight Loss (Severe) Clinical Problem Acute Disease or Injury Related Malnutrition Etiology Severe protein-calorie malnutrition in the context of acute illness related to decreased appetite and inadequate oral intake Signs/Symptoms as evidenced by ~7% wt loss x past 1-2 months and oral intake meeting less than 50% estimated nutrition needs x past 1-2 months. Status Active Problem Recommendation Dietitian Recommendations/Changes Continue liberalized regular diet. Offer ONS as per pt preference if PO inadequate at meals. Lab / Micro Data Result Diagrams: 03/31/22 06:15 03/31/22 06:15
--- NOTE | 2022-04-04 16:56 | PCM.DC.SUM ---
Providers Date of Admission: 03/30/22 Date of Discharge: 04/02/22 Primary Care Physician: Dr. Stephanie Partida DO Reason For Visit: LAP ROBOTIC RADICAL NEPHRECTOMY LEFT Medications at Discharge Home Medications isosorbide mononitrate 60 mg tablet,extended release 24 hr 60 mg PO DAILY chest pain 07/09/16 amlodipine 10 mg tablet 10 mg PO DAILY blood pressure 12/10/16 benazepril 40 mg tablet 40 mg PO DAILY blood pressure 12/10/16 simvastatin 20 mg tablet 20 mg PO QHS cholesterol 12/10/16 aspirin 81 mg tablet,delayed release 81 mg PO QHS heart 04/10/20 calcium carbonate 500 mg calcium (1,250 mg) tablet (Calcium 500) 1,200 mg PO BID Supplement 08/25/20 zinc gluconate 50 mg tablet 50 mg PO DAILY Health maintenence 03/31/21 omeprazole 20 mg capsule,delayed release 20 mg PO BID gerd 06/22/21 metoprolol succinate 50 mg tablet,extended release 24 hr (Toprol XL) 50 mg PO BID BP 02/09/22 acetaminophen 500 mg tablet 1,000 mg PO Q6H PRN PRN Pain Score 1-3 #0 tabs 02/22/22 albuterol sulfate 90 mcg/actuation aerosol inhaler (Ventolin HFA) 2 puff inhalation Q4H PRN PRN SOB &/OR WHEEZING #0 grams 02/22/22 baclofen 10 mg tablet 10 mg PO TID PRN PRN Muscle Spasm #0 tabs 02/22/22 potassium chloride 20 mEq tablet,extended release 20 meq PO DAILY Hypokalemia 30 days #30 tabs 02/22/22 furosemide 20 mg tablet 20 mg PO DAILY Check with primary doctor 03/16/22 docusate sodium 100 mg capsule (Colace) 100 mg PO BID #20 caps 03/30/22 oxycodone-acetaminophen 5 mg-325 mg tablet 1 tab PO Q6H PRN pain 7 days #14 tabs 03/30/22 Hospital Course Summary of Care Provided Hospital Course: unremarkable postoperative course Physical Exam Const alert and oriented x3 General Appearance: cooperative HEENT normocephalic, head/scalp atraumatic, EAC's normal and TM's normal bilaterally Eyes PERRL and EOMs intact bilaterally Pupil: sluggish Neck no lymphadenopathy, supple and no JVD General: trachea midline Lymph Lymphatic: no lymphadenopathy noted, lymphedema and lymphadenopathy Resp normal respiratory effort, normal air movement and clear to auscultation bilaterally Cardio regular rate, regular rhythm and peripheral pulses 2+ throughout GI soft to palpation, non-tender and non-distended Extremity normal capillary refill and no clubbing, cyanosis or edema General Extremity: no tenderness to palpation of joints or extremities Skin no rashes or lesions noted General Skin Exam: turgor normal Lesions: no lesions Rashes: no rashes Neuro CN's II-XII intact bilaterally Speech: speech normal Motor Exam: strength 5/5 throughout; Negative for general weakness Psych thought process normal, cooperative and affect normal Appearance: appropriate Weight / BMI Weight Weight: 68 kg Body Mass Index (BMI) 27.6 ABG / Lab / Microbiology Data Result Diagrams: 03/31/22 06:15 03/31/22 06:15 D/C Instructions Discharge Diet: No restrictions, Light diet - advance as tolerated and Soft diet Call your doctor if you observe: Fever of 101 or Higher Cleanse incision/area with: Soap & Water Please Follow Up With: Hollis Hamilton MD When: 2 weeks Meaningful Use Info Meaningful Use Diagnoses (Choose all that apply): None applicable Discharge Plan Admission Admit Date/Time: 03/30/22 06:00 Primary Reason for Your Visit: left nephrouretectomy Attending Provider: Hollis Hamilton Primary Care Provider: Stephanie Partida Discharge Orders/Prescriptions Prescriptions: New docusate sodium [Colace] 100 mg capsule 100 mg PO BID Qty: 20 0RF oxycodone-acetaminophen 5-325 mg tablet 1 tab PO Q6H PRN (Reason: pain) 7 Days Qty: 14 0RF Continued calcium carbonate [Calcium 500] 500 mg calcium (1,250 mg) tablet 1,200 mg PO BID zinc gluconate 50 mg tablet 50 mg PO DAILY omeprazole 20 mg capsule,delayed release(DR/EC) 20 mg PO BID isosorbide mononitrate 60 MG tablet extended release 24 hr 60 mg PO DAILY amlodipine 10 MG tablet 10 mg PO DAILY Label Comments: simvastatin 20 MG tablet 20 mg PO QHS benazepril 40 MG tablet 40 mg PO DAILY Label Comments: aspirin 81 MG tablet,delayed release (DR/EC) 81 mg PO QHS metoprolol succinate [Toprol XL] 50 mg tablet extended release 24 hr 50 mg PO BID acetaminophen 500 mg Tablet 1,000 mg PO Q6H PRN PRN (Reason: Pain Score 1-3) Qty: 0 0RF baclofen 10 mg Tablet 10 mg PO TID PRN PRN (Reason: Muscle Spasm) Qty: 0 0RF albuterol sulfate [Ventolin HFA] 90 mcg/actuation Hfa Aerosol Inhaler 2 puff inhalation Q4H PRN PRN (Reason: SOB &/OR WHEEZING) Qty: 0 0RF potassium chloride 20 mEq tablet extended release 20 meq PO DAILY 30 Days Qty: 30 0RF furosemide 20 mg tablet 20 mg PO DAILY Referrals / Follow Up: Hollis Hamilton MD [Med Staff - Active Staff] - Stephanie Partida DO [Primary Care Provider] - Disposition Disposition (needs filled in before D/C Order can be placed): Home, Self Care
== END 2022-04-02 10:53 | disposition home or self-care (01) | DRG 661 ==
LOC: ACINP 06:03 → MS3 03-31 07:39
PROVIDERS: Anesthesiology; Admitting Provider Urology; PCP Family Medicine; Referring Provider Urology; Visit Provider Urology
PROC: 0TT14ZZ Resection of Left Kidney, Percutaneous Endoscopic Approach (ICD-10-PCS; CPT 50546; principal; 2022-03-30 07:10)
DX: N28.89 Other specified disorders of kidney and ureter (principal); E78.5 Hyperlipidemia, unspecified; I25.10 Atherosclerotic heart disease of native coronary artery without angina pectoris; I10 Essential (primary) hypertension; N30.00 Acute cystitis without hematuria; G89.29 Other chronic pain; Z79.82 Long term (current) use of aspirin; Z87.891 Personal history of nicotine dependence; R93.422 Abnormal radiologic findings on diagnostic imaging of left kidney; N15.9 Renal tubulo-interstitial disease, unspecified
CPT/HCPCS: 36415; 80048; 85027; 88305; 97162; 97530; 97802; 99251; J7030; J7120; A4216; G0463; J0744; J2405

== ENCOUNTER → 2022-06-27 | Outpatient (CLI) | payer MEDICARE, OTHER, SELFPAY ==
[2022-06-27 15:43] LABS: Absolute Neutrophil Count 6.5 X10^3/uL (2.0-7.7); Basophil# 0.06 X10^3/uL; Basophil% 0.6 % (0-1); Eosinophil# 0.45 X10^3/uL; Eosinophils% 4.8 % (0-5); Hematocrit 38.3 % (37-47); Hemoglobin 11.7 g/dL (12.0-15.0); Lymphocyte % 17.1 % (19-41); Mean Corp Hgb Conc 30.5 g/dL (32-36); Mean Corpuscular Hgb 26.5 pg (27.0-32.0); Mean Corpuscular Volume 86.7 fL (81-99); Mean Platelet Vol. 9.6 fl (6.2-12.0); Monocyte# 0.75 X10^3/uL; NRBC Flagged by Analyzer 0 % (0-5); Neutrophil # 6.49 X10^3/uL (2.7-7.7); Neutrophil % 69.2 % (47-70); Platelet Count 265 K/mm3 (150-450); RBC Distribution Width CV 14.2 % (11.6-14.6); RBC Distribution Width SD 45.2 fl (35.1-43.9); Red Blood Count 4.42 M/mm3 (4.2-5.4); White Blood Count 9.4 K/mm3 (4.4-11.0)
[2022-06-27 16:00] LABS: Vitamin B12 298 pg/mL (211-911); Vitamin D,25 Hydroxy 44.1 ng/mL
[2022-06-27 16:01] LABS: ALB/GLOB Ratio 0.9 RATIO (0.9-2.4); AST(SGOT) 24 U/L (15-37); Alanine Aminotransfer ALT/SGPT 19 U/L (13-56); Albumin, Serum 3.5 g/dL (3.2-5.0); Alkaline Phosphatase 63 U/L (45-117); Anion Gap 7 (5-15); BUN 28 mg/dL (7-18); BUN/Creat Ratio 27.5 RATIO (10-20); Calcium,Total 9.6 mg/dL (8.5-10.1); Chloride 107 mmol/L (98-107); Creatinine, Serum 1.02 mg/dL (0.55-1.02); EST Glomerular Filtration Rate 55 mL/min (>60); Est Glom Filt Rate - Afr Amer 67 mL/min (>60); Ferritin 12 ng/mL (8-252); Globulin 3.8 g/dL (2.2-4.2); Glucose 157 mg/dL (74-106); Iron 40 ug/dL (50-170); Potassium 4.1 mmol/L (3.5-5.1); Protein, Total 7.3 g/dL (6.4-8.2); Sodium Level 139 mmol/L (136-145); Uric Acid 8.6 mg/dL (2.6-6.0)
== END | disposition home or self-care (01) ==
LOC: BFHLAB 12:00
PROVIDERS: PCP Family Medicine; Visit Provider Family Medicine
DX: E55.9 Vitamin D deficiency, unspecified (principal); E53.8 Deficiency of other specified B group vitamins; D50.9 Iron deficiency anemia, unspecified; Z51.81 Encounter for therapeutic drug level monitoring; M10.9 Gout, unspecified
CPT/HCPCS: 36415; 80053; 82306; 82607; 82728; 83540; 84550; 85025

== ENCOUNTER 2022-06-30 11:24 | Emergency (ER) | payer MEDICARE, OTHER, SELFPAY ==
[2022-06-30 11:26] VITALS: BP 131/83; PULSE 81; RESP 16; TEMP 36.6; O2SAT 98; BMI 28.1
[2022-06-30] MEDS: Ibuprofen 600 MG Tablet PO (12:18)
--- NOTE | 2022-06-30 12:20 | RAD_ITS ---
STUDY: X-RAY - RIGHT KNEE REASON FOR EXAM: Female, 82 years old. Injury/Pain TECHNIQUE: 4 view(s) of the knee. COMPARISON: None. FINDINGS: Normal visualized distal femur. Normal visualized proximal tibia and fibula. Normal proximal tibiofibular articulation. There is mild degenerative arthrosis of the medial femorotibial compartment. There is mild degenerative arthrosis of the lateral femorotibial compartment. There is mild degenerative arthrosis of the patellofemoral articulation. Tiny joint effusion. Calcification of the medial and lateral menisci suggestive of chondrocalcinosis. RAD/Knee 4 or More Views IMPRESSION: Degenerative arthrosis. Findings suggestive of chondrocalcinosis. Electronically Signed: Rahul Perez MD at 12:40 EST ,
--- NOTE | 2022-06-30 13:37 | EDS_ITS ---
HPI History of Present Illness Chief Complaint: Lower Extremity Injury Informant: patient Narrative Narrative: Patient is a 82-year-old female presenting with atraumatic worsening right knee pain. She had ultrasound today which was negative for blood clot and came to the ER for further evaluation. States the pain is behind her knee. Is worse when she goes from sitting to standing. She tried taking hydrocodone at home (she has a prescription for it through Dr. Rodarte for her back). Patient denies any other complaints at this time. Not tried any NSAIDs. Does have some tingling at the bottom of her foot. Denies any falls or injuries. [facility] Medical History Abnormal mammogram of left breast Arthritis Atherosclerotic heart disease of [place] coronary artery without angina pectoris Cancer Chronic back pain Chronic obstructive pulmonary disease Coronary artery disease Debility Debility Deep vein thrombosis of left lower extremity (04/2020) Dislocation of left ankle joint Edema Essential hypertension Former smoker Gastroesophageal reflux disease Gout Hemorrhoids Hyperlipidemia Hyperlipidemia Hypertension Hypertension Hypokalemia Hypomagnesemia Knee pain, bilateral Left renal atrophy Muscle spasm Neck pain Osteoarthritis Rectal prolapse Renal calculi Secondary pulmonary arterial hypertension Sleep apnea Wears glasses Home Medications isosorbide mononitrate 60 mg tablet,extended release 24 hr 60 mg PO DAILY chest pain 07/09/16 [History Last Taken 03/29/22] amlodipine 10 mg tablet 10 mg PO DAILY blood pressure 12/10/16 [History Last Taken 03/30/22] benazepril 40 mg tablet 40 mg PO DAILY blood pressure 12/10/16 [History Last Taken 03/30/22] simvastatin 20 mg tablet 20 mg PO QHS cholesterol 12/10/16 [History Last Taken 03/29/22] aspirin 81 mg tablet,delayed release 81 mg PO QHS heart 04/10/20 [History Last Taken 03/16/22] calcium carbonate 500 mg calcium (1,250 mg) tablet (Calcium 500) 1,200 mg PO BID Supplement 08/25/20 [History Last Taken 03/29/22] zinc gluconate 50 mg tablet 50 mg PO DAILY Health maintenence 03/31/21 [History Last Taken 03/29/22] omeprazole 20 mg capsule,delayed release 20 mg PO BID gerd 06/22/21 [History Last Taken 03/30/22] metoprolol succinate 50 mg tablet,extended release 24 hr (Toprol XL) 50 mg PO BID BP 02/09/22 [History Last Taken 03/30/22] acetaminophen 500 mg tablet 1,000 mg PO Q6H PRN PRN Pain Score 1-3 #0 tabs 02/22/22 [Rx Last Taken Unknown] albuterol sulfate 90 mcg/actuation aerosol inhaler (Ventolin HFA) 2 puff inhalation Q4H PRN PRN SOB &/OR WHEEZING #0 grams 02/22/22 [Rx Last Taken Unknown] baclofen 10 mg tablet 10 mg PO TID PRN PRN Muscle Spasm #0 tabs 02/22/22 [Rx Last Taken 03/28/22] potassium chloride 20 mEq tablet,extended release 20 meq PO DAILY Hypokalemia 30 days #30 tabs 02/22/22 [Rx Last Taken 03/29/22] furosemide 20 mg tablet 20 mg PO DAILY Check with primary doctor 03/16/22 [History Last Taken 03/29/22] docusate sodium 100 mg capsule (Colace) 100 mg PO BID #20 caps 03/30/22 [Rx Last Taken Unknown] oxycodone-acetaminophen 5 mg-325 mg tablet 1 tab PO Q6H PRN pain 7 days #14 tabs 03/30/22 [Rx Last Taken Unknown] prednisone 20 mg tablet 40 mg PO DAILY #8 tabs 06/30/22 [Rx Last Taken Unknown] Allergy/AdvReac Type Severity Reaction Status Date / Time No Known Allergies Allergy Verified 06/30/22 11:27 Family History Grandmother Breast cancer Surgical History H/O parathyroidectomy (2011) History of ankle surgery History of coronary artery stent placement (09/09/03) History of coronary artery stent placement History of herniorrhaphy History of open reduction and internal fixation (ORIF) procedure (03/2020) History of tonsillectomy and adenoidectomy History of wisdom tooth extraction Social History household members: none housing: [facility] current occupational status: retired pets and animals: Yes (dog) Smoking Status: Former smoker alcohol intake: current ROS ROS ED Constitutional Constitutional ED: Denies chills or fever(s) Cardiovascular Cardiovascular: Denies chest pain Respiratory/Chest Respiratory/Chest: Denies cough Musculoskeletal Musculoskeletal: Reports back pain and other Details: right knee pain Neurologic Neurologic: Denies headache(s) or weakness Hematologic/Lymphatic Hematologic/Lymphatic: Denies easy bleeding or easy bruising EXAM Physical Exam Const Vital Signs: 06/30/22 11:26 Temperature 97.8 F Temperature Source Temporal Pulse Rate 81 Respiratory Rate 16 Blood Pressure 131/83 H Blood Pressure Mean 99 Pulse Ox 98 Oxygen Delivery Method Room Air Positive well nourished and well developed General Appearance ED: well developed and NAD HEENT Reports moist mucous membranes normocephalic Eyes PERRL Neck full ROM and supple Chest Wall inspection of chest normal and palpation of chest normal Resp normal respiratory effort and clear to auscultation bilaterally Cardio regular rate, regular rhythm and no murmurs Extremity full ROM Extremity Narrative: Mild tenderness palpation of the posterior knee. No significant effusion appreciated in the bilateral knees. Patient is have pain with range of motion. No obvious ligamental laxity with valgus and varus stress. Negative anterior posterior drawer test. Negative logroll bilaterally. Neuro oriented x3 and moves all extremities Neuro Narrative: No focal deficits appreciated. Sensorium / Orientation: alert Psych mental status grossly normal Skin no wounds MDM MDM MDM Narrative Medical decision making narrative: Patient is evaluated for atraumatic right knee pain. She reports negative venous duplex earlier today. I do not have that result but will take the patient tomorrow. Clinically patient does not have signs or symptoms of DVT including palpable cords, asymmetric edema or calf pain. X-ray of the knee is obtained interpreted by myself as well as radiology. It shows degenerative arthrosis and find suggestive of chondrocalcinosis. I suspect play she likely has chronic degeneration of the knee and is flared up. Patient will be treated with a course of prednisone and is given first dose in the emergency room. An Andreas wrap is applied. She is able to ambulate. She has a walker to use at home as needed. She is encouraged to follow-up with pain management. She does start to feel that she is now having some left hip pain. On exam she does not have pain with logroll. It is distal to the greater trochanter. I suspect she is having increased back and hip pain from a change in her gait associated with her acute right knee pain. Patient feels that this is an acceptable explanation. I do not think further imaging is indicated. Patient is neuro vastly intact with good distal pulses. I do not think she has an acute arterial occlusion causing her pain. No signs of infection or cellulitis. Patient be discharged home to follow-up with pain management. Counseled on return precaution including intractable pain and concern for safety at home due to difficulty ambulating Radiography Diagnostic Testing: Clinical Impression(s) from Imaging Studies Knee X-Ray 06/30/22 12:20 IMPRESSION: Degenerative arthrosis. Findings suggestive of chondrocalcinosis. Electronically Signed: Rahul Perez MD at 12:40 EST , Discharge Plan Triage Chief Complaint: Lower Extremity Injury ED Provider: Melba Rangel Dx/Rx/DC Orders Clinical Impression: Acute pain of right knee, Chondrocalcinosis Instructions: ED Knee Pain of Uncertain Cause Prescriptions: New prednisone 20 mg tablet 40 mg PO DAILY Qty: 8 0RF No Action calcium carbonate [Calcium 500] 500 mg calcium (1,250 mg) tablet 1,200 mg PO BID zinc gluconate 50 mg tablet 50 mg PO DAILY omeprazole 20 mg capsule,delayed release(DR/EC) 20 mg PO BID isosorbide mononitrate 60 MG tablet extended release 24 hr 60 mg PO DAILY amlodipine 10 MG tablet 10 mg PO DAILY Label Comments: simvastatin 20 MG tablet 20 mg PO QHS benazepril 40 MG tablet 40 mg PO DAILY Label Comments: aspirin 81 MG tablet,delayed release (DR/EC) 81 mg PO QHS metoprolol succinate [Toprol XL] 50 mg tablet extended release 24 hr 50 mg PO BID acetaminophen 500 mg Tablet 1,000 mg PO Q6H PRN PRN (Reason: Pain Score 1-3) Qty: 0 0RF baclofen 10 mg Tablet 10 mg PO TID PRN PRN (Reason: Muscle Spasm) Qty: 0 0RF albuterol sulfate [Ventolin HFA] 90 mcg/actuation Hfa Aerosol Inhaler 2 puff inhalation Q4H PRN PRN (Reason: SOB &/OR WHEEZING) Qty: 0 0RF potassium chloride 20 mEq tablet extended release 20 meq PO DAILY 30 Days Qty: 30 0RF furosemide 20 mg tablet 20 mg PO DAILY docusate sodium [Colace] 100 mg capsule 100 mg PO BID Qty: 20 0RF oxycodone-acetaminophen 5-325 mg tablet 1 tab PO Q6H PRN (Reason: pain) 7 Days Qty: 14 0RF Primary Care Provider: Stephanie Partida Referrals: Stephanie Partida DO [Primary Care Provider] - Activity Restrictions/Additional Instructions: Please follow-up with your primary care doctor as well as Dr. Rodarte. Your x- ray did show degeneration of the knee as well as abnormal calcium deposits consistent with longstanding degeneration of the knee. (This is called chondrocalcinosis). You can continue to pick your hydrocodone at home and also alternate with ibuprofen. You been prescribed a burst of prednisone. Please do not take prednisone and ibuprofen at the same time. Wear Andreas wrap as needed for comfort. Disposition Disposition: Home, Self Care Discharge Date/Time: 06/30/22 14:06
[2022-06-30] MEDS: predniSONE 20 MG Tablet 60 MG PO (13:51)
== END 2022-06-30 14:06 | disposition home or self-care (01) ==
PROVIDERS: Emergency Provider Emergency Medicine; PCP Family Medicine; Visit Provider Emergency Medicine
DX: M25.561 Pain in right knee (principal); J44.9 Chronic obstructive pulmonary disease, unspecified; M25.552 Pain in left hip; M17.11 Unilateral primary osteoarthritis, right knee; E78.5 Hyperlipidemia, unspecified; I10 Essential (primary) hypertension; Z87.891 Personal history of nicotine dependence; M54.9 Dorsalgia, unspecified; M11.261 Other chondrocalcinosis, right knee; I25.10 Atherosclerotic heart disease of native coronary artery without angina pectoris; G89.29 Other chronic pain
CPT/HCPCS: 73564; 93971; 99283

== ENCOUNTER → 2022-06-30 | Outpatient (CLI) | payer MEDICARE, OTHER, SELFPAY ==
--- NOTE | 2022-06-30 10:59 | VDLE_ITS ---
Reason For Study: Pain in right leg RIGHT LEFT GSV is normal. CFV is compressible, spontaneous, phasic, CFV is compressible, spontaneous, phasic, competent, and demonstrates normal competent and demonstrates normal augmentation. augmentation. FV is compressible, spontaneous, phasic, competent and demonstrates normal augmentation. POP V is compressible, spontaneous, phasic, competent and demonstrates normal augmentation. T/P Trunk is compressible. PTV is compressible. RT PerV is compressible. Procedure This is a venous duplex using B-mode, color flow and spectral Doppler. Exam performed in department. A preliminary report was called and/or faxed to [facility] TEST MANAGER-C. VL/Venous Duplex US, Unilateral Interpretation Summary There is no evidence of right lower extremity deep vein thrombosis. Right great saphenous vein appears patent and compressible segmentally. Normal flow patterns left common f emoral vein Ordering Physician: Stephanie Felder Referring Physician: Stephanie Partida Performed By: Elizabeth Schroeder RVT
== END | disposition home or self-care (01) ==
LOC: CVS 10:57
PROVIDERS: PCP Family Medicine; Visit Provider Nurse Practitioner Family
DX: M79.604 Pain in right leg (principal)
CPT/HCPCS: 93971

== ENCOUNTER → 2022-08-23 | Outpatient (CLI) | payer MEDICARE, OTHER, SELFPAY ==
--- NOTE | 2022-08-23 12:12 | BI_ITS ---
MAMMOGRAPHY - BILATERAL SCREENING 3-D TOMOSYNTHESIS REASON FOR EXAM: Female, 82 years old. Routine screening PERTINENT HISTORY: Grandmother with breast cancer.. TECHNIQUE: 2-D mammograms and 3-D Tomosynthesis of the breast (s) were performed. CAD was performed. COMPARISON: 08/20/2021 FINDINGS: The breast composition is heterogeneously dense that can obscure small breast masses. Scattered benign calcifications are seen. No dense spiculated masses or suspicious microcalcifications are identified. No architectural distortion is identified. There is no skin thickening or retraction. There has been no significant change since the prior study. BI/SCRN MAMM (CAD)W/LUCIANA BILAT IMPRESSION: No mammographic signs of malignancy. Routine yearly mammograms recommended. ASSESSMENT CATEGORY: BIRADS Category 2: Benign. A letter regarding these results will be sent to the patient by the facility within 30 days. FOLLOW UP RECOMMENDATION: Yearly follow up mammogram recommended. (A) Approximately 10% of breast cancers are not detected by mammography. A normal mammogram should not delay biopsy of a clinically suspicious abnormality. Electronically Signed: Barry Balderas MD at 13:46 EDT ,
== END | disposition home or self-care (01) ==
PROVIDERS: PCP Family Medicine; Referring Provider Surgery; Visit Provider Family Medicine
DX: Z12.31 Encounter for screening mammogram for malignant neoplasm of breast (principal); Z80.3 Family history of malignant neoplasm of breast; R92.8 Other abnormal and inconclusive findings on diagnostic imaging of breast
CPT/HCPCS: 77063; 77067

== ENCOUNTER → 2022-11-22 | Outpatient (CLI) | payer MEDICARE, OTHER, SELFPAY ==
[2022-11-22 11:41] LABS: Anion Gap 6 (5-15); BUN 23 mg/dL (7-18); BUN/Creat Ratio 21.3 RATIO (10-20); Calcium,Total 9.5 mg/dL (8.5-10.1); Chloride 109 mmol/L (98-107); Creatinine, Serum 1.08 mg/dL (0.55-1.02); EST Glomerular Filtration Rate 52 mL/min (>60); Est Glom Filt Rate - Afr Amer 62 mL/min (>60); Glucose 160 mg/dL (74-106); Sodium Level 139 mmol/L (136-145)
== END | disposition home or self-care (01) ==
LOC: MTLAB 09:35
PROVIDERS: PCP Family Medicine; Referring Provider Nurse Practitioner Acute Care; Visit Provider Nurse Practitioner Acute Care
DX: Z01.818 Encounter for other preprocedural examination (principal); Z79.1 Long term (current) use of non-steroidal anti-inflammatories (NSAID)
CPT/HCPCS: 36415; 80048

== ENCOUNTER 2022-12-04 14:22 | Emergency (ER) | payer MEDICARE, OTHER, SELFPAY ==
[2022-12-04 14:25] VITALS: BP 184/78; PULSE 83; RESP 18; TEMP 36.8; O2SAT 99; BMI 29.8
--- NOTE | 2022-12-04 14:49 | CT_ITS ---
EXAM: CT SPINE - CERVICAL WITHOUT IV REASON FOR EXAM: Female, 82 years old. NECK PAIN neck pain HISTORY: NECK PAIN neck pain Individualized dose optimization techniques were used for this CT. TECHNIQUE: Multiplanar images were obtained of the cervical spine. IV contrast was not utilized. COMPARISON: None. FINDINGS: The vertebral bodies do maintain their height. The odontoid process is intact.There is grade 1 anterolisthesis of C5 on C6. There is grade 1 anterolisthesis of C6 on C7. No pre-vertebral soft tissue swelling is seen. The intravertebral disc height is lost. There are scattered lymph nodes in the neck. There are degenerative changes of the osseous structures. There is bilateral facet arthropathy. There are scattered levels of foraminal stenosis. There are vascular calcifications. CT/Spine Cervical without Contras IMPRESSION: Degenerative changes of the cervical spine. There are no acute findings. Electronically Signed: Ender Cool MD at 15:28 EDT ,
--- NOTE | 2022-12-04 15:13 | ED.VIS.BACK ---
HPI History of Present Illness Chief Complaint: Back Narrative Narrative: 82-year-old female presenting with neck pain. States that she has chronic neck and back pain. She sees Dr. Rodarte. She is scheduled for some injections at [place] upcoming. She states she was not doing anything particular a she started to have arm pain. This appeared to go up one arm and down the other but she states that does not radiate from the neck. This is in the medial aspects of the arms bilaterally into the pinkies. Denies any new trauma. She states that the pain is actually improved since then. No chest pain or shortness of breath. No dizziness or lightheadedness. No nausea or vomiting. [facility] Medical History Abnormal mammogram of left breast Arthritis Atherosclerotic heart disease of [place] coronary artery without angina pectoris Cancer Chronic back pain Chronic obstructive pulmonary disease Debility Deep vein thrombosis of left lower extremity (04/2020) Dislocation of left ankle joint Edema Essential hypertension Former smoker Gastroesophageal reflux disease Gout Hemorrhoids Hyperlipidemia Hypokalemia Hypomagnesemia Knee pain, bilateral Left renal atrophy Muscle spasm Neck pain Osteoarthritis Rectal prolapse Renal calculi Secondary pulmonary arterial hypertension Sleep apnea Wears glasses Home Medications isosorbide mononitrate 60 mg tablet,extended release 24 hr 60 mg PO DAILY chest pain 07/09/16 [History Last Taken 03/29/22] amlodipine 10 mg tablet 10 mg PO DAILY blood pressure 12/10/16 [History Last Taken 03/30/22] benazepril 40 mg tablet 40 mg PO DAILY blood pressure 12/10/16 [History Last Taken 03/30/22] simvastatin 20 mg tablet 20 mg PO QHS cholesterol 12/10/16 [History Last Taken 03/29/22] calcium carbonate 500 mg calcium (1,250 mg) tablet (Calcium 500) 1,200 mg PO BID Supplement 08/25/20 [History Last Taken 03/29/22] zinc gluconate 50 mg tablet 50 mg PO DAILY Health maintenence 03/31/21 [History Last Taken 03/29/22] omeprazole 20 mg capsule,delayed release 20 mg PO BID gerd 06/22/21 [History Last Taken 03/30/22] acetaminophen 500 mg tablet 1,000 mg (2 x 500 mg) PO Q6H PRN PRN Pain Score 1-3 #0 tabs 02/22/22 [Rx Last Taken Unknown] baclofen 10 mg tablet 10 mg PO TID PRN PRN Muscle Spasm #0 tabs 02/22/22 [Rx Last Taken 03/28/22] oxycodone-acetaminophen 5 mg-325 mg tablet 1 tab PO Q6H PRN pain 7 days #14 tabs 03/30/22 [Rx Last Taken Unknown] celecoxib 200 mg capsule (Celebrex) 200 mg PO DAILY 08/11/22 [History Last Taken Unknown] furosemide 20 mg tablet 20 mg PO .3xw Check with primary doctor 08/11/22 [History Last Taken Unknown] metoprolol succinate 50 mg tablet,extended release 24 hr See Rx Instructions .Route .COMPLEX #180 tabs 08/22/22 [Rx Last Taken Unknown] Allergy/AdvReac Type Severity Reaction Status Date / Time No Known Allergies Allergy Verified 12/04/22 14:25 Family History Grandmother Breast cancer Surgical History H/O parathyroidectomy (2011) History of ankle surgery History of coronary artery stent placement (09/09/03) History of coronary artery stent placement History of esophagogastroduodenoscopy (EGD) (02/11/22) History of herniorrhaphy 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) History of open reduction and internal fixation (ORIF) procedure (03/2020) History of tonsillectomy and adenoidectomy History of wisdom tooth extraction Social History household members: [facility] current occupational status: retired pets and animals: Yes (dog) Smoking Status: Former smoker alcohol intake: current caffeine: Yes ROS ROS ED Constitutional Constitutional ED: Denies chills, fever(s) or sweats Eyes Eyes: Denies blurry vision or change in vision ENT ENT ED: Denies ear pain or sore throat Cardiovascular Cardiovascular: Denies chest pain, palpitations or racing heartbeat Respiratory/Chest Respiratory/Chest: Denies cough, dyspnea or sputum Gastrointestinal Gastrointestinal: Denies abdominal pain, constipation, diarrhea, nausea or vomiting Genitourinary Genitourinary ED: Denies dysuria, hematuria or urinary frequency Musculoskeletal Musculoskeletal: Reports neck pain; Denies arthralgias or myalgias Integumentary Denies abscess, Abrasions or rash Neurologic Neurologic: Denies headache(s), paresthesias or weakness Psychiatric Psychiatric: Denies anxiety, depression, suicidal ideation or suicidal thoughts Endocrine Endocrinology: Denies polydipsia or polyuria EXAM Physical Exam Const Vital Signs: 12/04/22 14:25 Temperature 98.2 F Temperature Source Temporal Pulse Rate 83 Respiratory Rate 18 Blood Pressure 184/78 H Blood Pressure Mean 113 Pulse Ox 99 Oxygen Delivery Method Room Air Positive well nourished General Appearance ED: NAD HEENT Reports moist mucous membranes Eyes PERRL Resp normal respiratory effort Cardio regular rate and regular rhythm Back/Spine Cervical Spine: cervical spine tenderness Cervical Spine Tenderness Details: C7 and T1 Extremity normal to inspection Neuro oriented x3 and no sensory deficits noted Sensorium / Orientation: alert Motor Exam: strength 5/5 throughout Psych mental status grossly normal Skin no rashes or lesions noted MDM MDM MDM Narrative Medical decision making narrative: 82-year-old female with neck pain and radiation to the pain to the bilateral pinkies which has gotten better. She declined analgesia.. Vital signs are stable she is afebrile. Chest tenderness to lower cervical spine. I did obtain a CT scan of the cervical spine this is negative for acute findings. Does show some degenerative disc disease. Patient counseled on this. Recommend she follow-up with Dr. Rodarte and her primary care doctor. Impression: 1. Cervical radiculopathy Radiography Diagnostic Testing: Clinical Impression(s) from Imaging Studies Cervical Spine CT 12/04/22 14:49 IMPRESSION: Degenerative changes of the cervical spine. There are no acute findings. Electronically Signed: Ender Cool MD at 15:28 EDT , Discharge Plan Triage Chief Complaint: Back Other Complaint: Other, Pain/Inj ED Provider: Mickey Hdez Dx/Rx/DC Orders Instructions: ED Neck Sprain or Strain, ED Radiculopathy, Cervical Prescriptions: No Action calcium carbonate [Calcium 500] 500 mg calcium (1,250 mg) tablet 1,200 mg PO BID zinc gluconate 50 mg tablet 50 mg PO DAILY omeprazole 20 mg capsule,delayed release(DR/EC) 20 mg PO BID celecoxib [Celebrex] 200 mg capsule 200 mg PO DAILY isosorbide mononitrate 60 MG tablet extended release 24 hr 60 mg PO DAILY amlodipine 10 MG tablet 10 mg PO DAILY Patient Comments: simvastatin 20 MG tablet 20 mg PO QHS benazepril 40 MG tablet 40 mg PO DAILY Patient Comments: acetaminophen 500 mg Tablet 1,000 mg PO Q6H PRN PRN (Reason: Pain Score 1-3) Qty: 0 0RF baclofen 10 mg Tablet 10 mg PO TID PRN PRN (Reason: Muscle Spasm) Qty: 0 0RF oxycodone-acetaminophen 5-325 mg tablet 1 tab PO Q6H PRN (Reason: pain) 7 Days Qty: 14 0RF furosemide 20 mg tablet 20 mg PO .3xw Rx Instructions: MWF metoprolol succinate 50 mg tablet extended release 24 hr See Rx Instructions .ROUTE .COMPLEX Qty: 180 3RF Dose Instruction: TAKE 1 TABLET TWICE A DAY Rx Instructions: TAKE 1 TABLET TWICE A DAY Primary Care Provider: Stephanie Partida Referrals: Stephanie Partida DO [Primary Care Provider] - Disposition Disposition: Home, Self Care
== END 2022-12-04 15:46 | disposition home or self-care (01) ==
PROVIDERS: Emergency Provider Student in an Organized Health Care Education/Training Program; PCP Family Medicine; Visit Provider Student in an Organized Health Care Education/Training Program
DX: M47.22 Other spondylosis with radiculopathy, cervical region (principal); J44.9 Chronic obstructive pulmonary disease, unspecified; I25.10 Atherosclerotic heart disease of native coronary artery without angina pectoris; I10 Essential (primary) hypertension; E78.5 Hyperlipidemia, unspecified; Z87.891 Personal history of nicotine dependence; K21.9 Gastro-esophageal reflux disease without esophagitis; Z79.899 Other long term (current) drug therapy; Z95.5 Presence of coronary angioplasty implant and graft; Z90.5 Acquired absence of kidney
CPT/HCPCS: 72125; 99282; A4216

== ENCOUNTER 2022-12-18 06:15 | Emergency (ER) | payer MEDICARE, OTHER, SELFPAY ==
[2022-12-18 06:16] VITALS: BP 153/80; PULSE 74; RESP 16; TEMP 36.6; O2SAT 99; BMI 29.7
--- NOTE | 2022-12-18 06:33 | EDS_ITS ---
HPI History of Present Illness Chief Complaint: Lower Extremity Injury Informant: patient Narrative Narrative: Patient had a fall about 2 weeks ago. She states since then she has had off-and-on pain on the posterior lateral aspect of her knee and proximal calf. She is able to walk well. She has never had swelling chest pain palpitations. She does have a history of a remote DVT in that leg. She states her neighbor talk to her and stated could be a blood clot which got her concerned and prompted her to come in now. She states is not even hurting now. It just hurts off and on. It has never had swelling. She is not currently on blood thinners. [facility] Medical History Abnormal mammogram of left breast Arthritis Atherosclerotic heart disease of [place] coronary artery without angina pectoris Cancer Chronic back pain Chronic obstructive pulmonary disease Debility Deep vein thrombosis of left lower extremity (04/2020) Dislocation of left ankle joint Edema Essential hypertension Former smoker Gastroesophageal reflux disease Gout Hemorrhoids Hyperlipidemia Hypokalemia Hypomagnesemia Knee pain, bilateral Left renal atrophy Muscle spasm Neck pain Osteoarthritis Rectal prolapse Renal calculi Secondary pulmonary arterial hypertension Sleep apnea Wears glasses Home Medications isosorbide mononitrate 60 mg tablet,extended release 24 hr 60 mg PO DAILY chest pain 07/09/16 [History Last Taken 03/29/22] amlodipine 10 mg tablet 10 mg PO DAILY blood pressure 12/10/16 [History Last Taken 03/30/22] benazepril 40 mg tablet 40 mg PO DAILY blood pressure 12/10/16 [History Last Taken 03/30/22] simvastatin 20 mg tablet 20 mg PO QHS cholesterol 12/10/16 [History Last Taken 03/29/22] calcium carbonate 500 mg calcium (1,250 mg) tablet (Calcium 500) 1,200 mg PO BID Supplement 08/25/20 [History Last Taken 03/29/22] zinc gluconate 50 mg tablet 50 mg PO DAILY Health maintenence 03/31/21 [History Last Taken 03/29/22] omeprazole 20 mg capsule,delayed release 20 mg PO BID gerd 06/22/21 [History Last Taken 03/30/22] acetaminophen 500 mg tablet 1,000 mg (2 x 500 mg) PO Q6H PRN PRN Pain Score 1-3 #0 tabs 02/22/22 [Rx Last Taken Unknown] baclofen 10 mg tablet 10 mg PO TID PRN PRN Muscle Spasm #0 tabs 02/22/22 [Rx Last Taken 03/28/22] oxycodone-acetaminophen 5 mg-325 mg tablet 1 tab PO Q6H PRN pain 7 days #14 tabs 03/30/22 [Rx Last Taken Unknown] celecoxib 200 mg capsule (Celebrex) 200 mg PO DAILY 08/11/22 [History Last Taken Unknown] furosemide 20 mg tablet 20 mg PO .3xw Check with primary doctor 08/11/22 [History Last Taken Unknown] metoprolol succinate 50 mg tablet,extended release 24 hr See Rx Instructions .Route .COMPLEX #180 tabs 08/22/22 [Rx Last Taken Unknown] Allergy/AdvReac Type Severity Reaction Status Date / Time No Known Allergies Allergy Verified 12/04/22 14:25 Family History Grandmother Breast cancer Surgical History H/O parathyroidectomy (2011) History of ankle surgery History of coronary artery stent placement (09/09/03) History of coronary artery stent placement History of esophagogastroduodenoscopy (EGD) (02/11/22) History of herniorrhaphy 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) History of open reduction and internal fixation (ORIF) procedure (03/2020) History of tonsillectomy and adenoidectomy History of wisdom tooth extraction Social History [facility] members: [facility] current occupational status: retired pets and animals: Yes (dog) Smoking Status: Former smoker alcohol intake: current caffeine: Yes ROS ROS ED Constitutional Constitutional ED: Denies fever(s) Cardiovascular Cardiovascular: Denies chest pain, palpitations or racing heartbeat Respiratory/Chest Respiratory/Chest: Denies cough or dyspnea Gastrointestinal Gastrointestinal: Denies nausea or vomiting Musculoskeletal Musculoskeletal: Reports other Details: See history of present illness ; Denies neck pain Integumentary Denies rash Neurologic Neurologic: Denies paresthesias Hematologic/Lymphatic Hematologic/Lymphatic: Denies easy bleeding, easy bruising or lymphadenopathy Allergic/Immunologic Allergic/Immunologic ED: Denies urticaria EXAM Physical Exam Narrative Exam Narrative: Patient awake alert no acute distress. HEENT shows no sign of trauma. Mucous membranes are moist Heart is actually regular I hear no murmur gallop or rub. It sounds quite normal. Lungs are clear bilaterally no pain with a deep breath. Saturations are normal at 99% on room air showing no hypoxia. Abdomen soft nontender No pain with motion of back or neck. Extremities: There is no asymmetry of her legs. There is no swelling of either leg. No tenderness specifically along the deep venous system. There is actually no pain now at all. There are no distended veins. I palpate no cord. Range of motion of the knees are excellent. There is no effusion or tenderness. The exam is overall normal and there is no asymmetry. Const Vital Signs: 12/18/22 06:16 Temperature 98 F Temperature Source Temporal Pulse Rate 74 Respiratory Rate 16 Blood Pressure 153/80 H Blood Pressure Mean 104 Pulse Ox 99 Oxygen Delivery Method Room Air MDM MDM MDM Narrative Medical decision making narrative: Patient has a Wells criteria for DVT of -1. She gets a positive point for prior DVT but a -2 for another cause equal or more likely than a DVT. We called to see if we can get an ultrasound of her leg today. Nobody knows at this time if we can get an ultrasound today. We will have to wait till 7 AM to see if we can order the study. With a Wells criteria of -1 and no current symptoms I do not think she needs anticoagulation pending an ultrasound even if we cannot get it until tomorrow. At 7 AM we are able to find that we will be able to do the ultrasound today. They are [facility]. The test is now ordered. Discharge Plan Triage Chief Complaint: Lower Extremity Injury ED Provider: Moses Bueno Dx/Rx/DC Orders Clinical Impression: Pain in left leg Instructions: ED Pain, Acute, Uncertain Cause Prescriptions: No Action calcium carbonate [Calcium 500] 500 mg calcium (1,250 mg) tablet 1,200 mg PO BID zinc gluconate 50 mg tablet 50 mg PO DAILY omeprazole 20 mg capsule,delayed release(DR/EC) 20 mg PO BID celecoxib [Celebrex] 200 mg capsule 200 mg PO DAILY isosorbide mononitrate 60 MG tablet extended release 24 hr 60 mg PO DAILY amlodipine 10 MG tablet 10 mg PO DAILY Patient Comments: simvastatin 20 MG tablet 20 mg PO QHS benazepril 40 MG tablet 40 mg PO DAILY Patient Comments: acetaminophen 500 mg Tablet 1,000 mg PO Q6H PRN PRN (Reason: Pain Score 1-3) Qty: 0 0RF baclofen 10 mg Tablet 10 mg PO TID PRN PRN (Reason: Muscle Spasm) Qty: 0 0RF oxycodone-acetaminophen 5-325 mg tablet 1 tab PO Q6H PRN (Reason: pain) 7 Days Qty: 14 0RF furosemide 20 mg tablet 20 mg PO .3xw Rx Instructions: MWF metoprolol succinate 50 mg tablet extended release 24 hr See Rx Instructions .ROUTE .COMPLEX Qty: 180 3RF Dose Instruction: TAKE 1 TABLET TWICE A DAY Rx Instructions: TAKE 1 TABLET TWICE A DAY Primary Care Provider: Stephanie Partida Referrals: Stephanie Partida, [Primary Care Provider] - 3-5 Days if not improving
--- NOTE | 2022-12-18 07:08 | VDLE_ITS ---
Reason For Study: Pain LLE RIGHT LEFT CFV is compressible, spontaneous, phasic, GSV is normal. competent and demonstrates normal CFV is compressible, spontaneous, phasic, augmentation. competent, and demonstrates normal Procedure augmentation. This is a venous duplex using B-mode, color FV is compressible, spontaneous, phasic, flow and spectral Doppler. competent and demonstrates normal Exam performed portable in ED. augmentation. A preliminary report was called and/or faxed POP V is compressible, spontaneous, phasic, to Dr. Hdez. competent and demonstrates normal augmentation. T/P Trunk is compressible. PTV is compressible. LT PerV is compressible. Hypoechoic, non vascular structure noted Lt Pop Fossa measuring 3.52cm x 1.21cm. VL/Venous Duplex US, Unilateral Interpretation Summary There is no evidence of left lower extremity deep vein thrombosis. Left great s aphenous vein appears patent and compressible segmentally. Nonvascular complex left popliteal fossa 3 .52 x 1.21 cm structure. Possible Lundberg's cyst with internal debris or hemorrhage. Clinical c orrelation would be appropriate. Normal flow patterns right common femoral vein Ordering Physician: Moses Bueno Referring Physician: Stephanie Partida Performed By: Noemí Barone, RAFFAELE, RVT
== END 2022-12-18 10:18 | disposition home or self-care (01) ==
LOC: ED 06:36
PROVIDERS: Emergency Provider Emergency Medicine; PCP Family Medicine; Visit Provider Emergency Medicine
DX: M79.662 Pain in left lower leg (principal); J44.9 Chronic obstructive pulmonary disease, unspecified; W19.XXXA Unspecified fall, initial encounter; I25.10 Atherosclerotic heart disease of native coronary artery without angina pectoris; E78.5 Hyperlipidemia, unspecified; I10 Essential (primary) hypertension; Z95.5 Presence of coronary angioplasty implant and graft; Z79.899 Other long term (current) drug therapy; Z86.718 Personal history of other venous thrombosis and embolism; Z87.891 Personal history of nicotine dependence
CPT/HCPCS: 93971; 99282

== ENCOUNTER 2023-01-14 16:00 | Emergency (ER) | payer MEDICARE, OTHER, SELFPAY ==
[2023-01-14 16:01] VITALS: BP 177/98; PULSE 85; RESP 17; TEMP 36.2; O2SAT 98; BMI 32.4
--- NOTE | 2023-01-14 16:23 | CT_ITS ---
INDICATION: Right flank pain EXAMINATION: CT ABDOMEN AND PELVIS WITHOUT CONTRAST TECHNIQUE: Helically acquired images were obtained of the abdomen and pelvis without oral or IV contrast. A radiation dose optimization technique was used for this scan. IV Contrast dosage and agent: None. Oral contrast: None. RADIATION DOSAGE (If Supplied By Facility): CTDIvol = ( 13.26 ) mGy, DLP = ( 596.14 ) mGycm COMPARISON: 02/01/2022 FINDINGS: LOWER CHEST: Lung bases are clear. No cardiomegaly or pericardial effusion. LIVER: Homogeneous. No focal mass is seen without contrast. GALLBLADDER AND BILIARY TREE: No calcified gallstones. No gallbladder distension or wall edema. No intra- or extrahepatic biliary ductal dilation. PANCREAS: No focal cystic or solid mass. SPLEEN: Normal size without focal cystic or solid mass. ADRENAL GLANDS: No nodules. KIDNEYS AND URETERS: Stable right renal cysts appear to be simple and no further follow-up exam is needed. No evidence of hydronephrosis. Status post left nephrectomy. PERITONEUM: No ascites or free air. No other fluid collection. BOWEL: Thickening of the appendix but unchanged. No evidence of acute appendicitis. No stomach or bowel distension. Retention. Sigmoid diverticulosis without evidence of acute diverticulitis. LYMPH NODES: No enlarged mesenteric or retroperitoneal lymph nodes. VESSELS: Aorta is non-dilated. URINARY BLADDER: Unremarkable. REPRODUCTIVE ORGANS: Uterine calcifications consistent with calcified uterine fibroids. No free fluid. No pelvic mass. ABDOMINAL WALL: No discrete abdominal or pelvic wall hernia. BONES: Degenerative changes of the spine. CT/Abdomen/Pelvis without Cont IMPRESSION: 1. Status post left nephrectomy. 2. No focal acute inflammatory process. Electronically Signed: Nate Oden MD at 17:39 EDT ,
--- NOTE | 2023-01-14 16:25 | EDS_ITS ---
<Statement entered by Damari Tucker MD - 01/14/23 22:40> I have personally performed a face to face assessment of the patient and have reviewed the SANTOSH Note. Patient presents secondary to back pain. She is a history of chronic back pain and sees pain management. She takes Saint Michael regularly. Patient reports increased right lower back pain that wraps somewhat around her right flank. It is noted that she only has her right kidney. Patient denies urinary symptoms. She denies recent injury or change in activity to her back. No fever or chills. She has had injections to her neck recently but no injections to her lower back. Patient lying in bed no acute distress. Head and neck examination unremarkable. Heart is regular rate and rhythm. Lung sounds are clear. Abdomen is soft nontender. Back examination feels mild tenderness to the right CVA region. Given the patient only has a solitary kidney on the right and is having right flank pain CT flank and urinalysis is obtained. CT flank reveals chronic changes with no acute findings. Urinalysis does reveal evidence of UTI. Patient was given 1 tab of [facility] Michael here along with Lidoderm patch. Test results are discussed with her. She will be treated with a course of Keflex for her UTI. HPI History of Present Illness Chief Complaint: Back Narrative Narrative: Patient presenting today with right lower back pain that she has had for the past month or so that acutely worsened last night. She reports that the pain is sharp and constant. She reports that this does feel like her normal back pain that she experiences. She also reports intermittent numbness and tingling to her bilateral legs that she has experienced in the past due to a history of sciatica. She does follow with pain management and saw them a few days ago for this pain and they prescribed her muscle relaxers which have provided very little relief. She denies any dysuria, increased urinary frequency, hematuria, fever, chills, bowel/bladder incontinence, saddle paresthesia. She also denies any recent falls or trauma to her back. [facility] Medical History Abnormal mammogram of left breast Arthritis Atherosclerotic heart disease of [place] coronary artery without angina pectoris Cancer Chronic back pain Chronic obstructive pulmonary disease Debility Deep vein thrombosis of left lower extremity (04/2020) Dislocation of left ankle joint Edema Essential hypertension Former smoker Gastroesophageal reflux disease Gout Hemorrhoids Hyperlipidemia Hypokalemia Hypomagnesemia Knee pain, bilateral Left renal atrophy Muscle spasm Neck pain Osteoarthritis Rectal prolapse Renal calculi Secondary pulmonary arterial hypertension Sleep apnea Wears glasses Home Medications isosorbide mononitrate 60 mg tablet,extended release 24 hr 60 mg PO DAILY chest pain 07/09/16 [History Last Taken 03/29/22] amlodipine 10 mg tablet 10 mg PO DAILY blood pressure 12/10/16 [History Last Taken 03/30/22] benazepril 40 mg tablet 40 mg PO DAILY blood pressure 12/10/16 [History Last Taken 03/30/22] simvastatin 20 mg tablet 20 mg PO QHS cholesterol 12/10/16 [History Last Taken 03/29/22] calcium carbonate 500 mg calcium (1,250 mg) tablet (Calcium 500) 1,200 mg PO BID Supplement 08/25/20 [History Last Taken 03/29/22] zinc gluconate 50 mg tablet 50 mg PO DAILY Health maintenence 03/31/21 [History Last Taken 03/29/22] omeprazole 20 mg capsule,delayed release 20 mg PO BID gerd 06/22/21 [History Last Taken 03/30/22] acetaminophen 500 mg tablet 1,000 mg (2 x 500 mg) PO Q6H PRN PRN Pain Score 1-3 #0 tabs 02/22/22 [Rx Last Taken Unknown] baclofen 10 mg tablet 10 mg PO TID PRN PRN Muscle Spasm #0 tabs 02/22/22 [Rx Last Taken 03/28/22] oxycodone-acetaminophen 5 mg-325 mg tablet 1 tab PO Q6H PRN pain 7 days #14 tabs 03/30/22 [Rx Last Taken Unknown] celecoxib 200 mg capsule (Celebrex) 200 mg PO DAILY 08/11/22 [History Last Taken Unknown] furosemide 20 mg tablet 20 mg PO .3xw Check with primary doctor 08/11/22 [History Last Taken Unknown] metoprolol succinate 50 mg tablet,extended release 24 hr See Rx Instructions .Route .COMPLEX #180 tabs 08/22/22 [Rx Last Taken Unknown] cephalexin 500 mg capsule 500 mg PO Q6 #39 CAPSULES 01/14/23 [Rx Last Taken Unknown] Allergy/AdvReac Type Severity Reaction Status Date / Time No Known Allergies Allergy Verified 01/14/23 16:01 Family History Grandmother Breast cancer Surgical History H/O parathyroidectomy (2011) History of ankle surgery History of coronary artery stent placement (09/09/03) History of coronary artery stent placement History of esophagogastroduodenoscopy (EGD) (02/11/22) History of herniorrhaphy 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) History of open reduction and internal fixation (ORIF) procedure (03/2020) History of tonsillectomy and adenoidectomy History of wisdom tooth extraction Social History household members: none housing: [facility] current occupational status: retired pets and animals: Yes (dog) Smoking Status: Former smoker alcohol intake: current caffeine: Yes ROS ROS ED Constitutional Constitutional ED: Denies chills, fever(s) or weight loss Cardiovascular Cardiovascular: Denies chest pain Respiratory/Chest Respiratory/Chest: Denies cough or dyspnea Gastrointestinal Gastrointestinal: Denies abdominal pain, nausea or vomiting Genitourinary Genitourinary ED: Denies dysuria, hematuria or urinary frequency Musculoskeletal Musculoskeletal: Reports back pain Integumentary Denies rash Neurologic Neurologic: Reports paresthesias; Denies weakness EXAM Physical Exam Const Vital Signs: 01/14/23 16:01 Temperature 97.1 F L Temperature Source Temporal Pulse Rate 85 Respiratory Rate 17 Blood Pressure 177/98 H Blood Pressure Mean 124 Pulse Ox 98 Oxygen Delivery Method Room Air Positive well nourished, well developed and no apparent distress General Appearance ED: well developed HEENT Reports normocephalic and head/scalp atraumatic Mouth ED: Yes moist mucous membranes normal Eyes PERRL and EOMs intact bilaterally Neck full ROM and supple Chest Wall inspection of chest normal Resp normal respiratory effort and clear to auscultation bilaterally Cardio regular rate and regular rhythm GI soft to palpation, non-tender, non-distended and no masses Back/Spine normal ROM and normal to inspection Back/Spine Narrative: No midline tenderness to the thoracic or lumbar spine. Right-sided lumbar paraspinal tenderness to palpation. Right-sided flank pain to palpation. General Back: CVA tenderness right Extremity normal to inspection and full ROM Neuro oriented x3, CN's II-XII intact bilaterally, moves all extremities, no focal motor deficits and no sensory deficits noted Neuro Narrative: Intact ankle reflex, negative Babinski sign. Sensation intact in lower extremities bilaterally. Sensorium / Orientation: awake and alert Motor Exam: strength 5/5 throughout Psych mental status grossly normal and thought process normal Skin no rashes or lesions noted and no wounds MDM MDM MDM Narrative Medical decision making narrative: Patient presenting today with right-sided flank pain that she has had since last night. She reports a history of chronic back pain and thinks that this feels similar to where she experiences her back pain but it has never been this severe. She denies any recent falls or trauma to her back. She denies symptoms of cauda equina syndrome. She has had a left-sided nephrectomy. She denies having any urinary symptoms, however UA will be obtained to rule out UTI and CT of the abdomen without contrast will be obtained to rule out kidney stone, pyelonephritis, and other etiology. Patient does have a UTI, CT is negative for any acute findings. She was given [facility] Michael here and a lidocaine patch for pain and reports some improvement of her symptoms. She will be started on Keflex with first dose here. She is to follow-up with her PCP. She will be discharged home in stable condition and is comfortable with plan. Lab Data Attestation: I reviewed the patient's lab results. Labs: Laboratory Results - last 24 hr 01/14/23 16:40 Urine Color Yellow Urine Clarity Clear Urine pH 6.5 Ur Specific [place] 1.010 Urine Protein 30 H Urine Glucose (UA) Normal Urine Ketones Negative Urine Occult Blood 10 H Urine Nitrite Positive H Urine Bilirubin Negative Urine Urobilinogen Normal Ur Leukocyte Esterase 500 H Urine RBC 0 SEEN Urine WBC 25-50 SEEN Ur Squamous Epith Cells 0 SEEN Urine Bacteria 2+ Urine Mucus 0 SEEN Radiography Diagnostic Testing: Clinical Impression(s) from Imaging Studies Abdomen/Pelvis CT 01/14/23 16:23 IMPRESSION: 1. Status post left nephrectomy. 2. No focal acute inflammatory process. Electronically Signed: Nate Oden MD at 17:39 EDT , Discharge Plan Triage Chief Complaint: Back ED Midlevel Provider: Gracie Salamanca ED Provider: Damari Tucker Dx/Rx/DC Orders Clinical Impression: Acute right flank pain, Acute UTI Instructions: ED Cystitis Female Adult Prescriptions: New cephalexin 500 mg capsule 500 mg PO Q6 Qty: 39 0RF No Action calcium carbonate [Calcium 500] 500 mg calcium (1,250 mg) tablet 1,200 mg PO BID zinc gluconate 50 mg tablet 50 mg PO DAILY omeprazole 20 mg capsule,delayed release(DR/EC) 20 mg PO BID celecoxib [Celebrex] 200 mg capsule 200 mg PO DAILY isosorbide mononitrate 60 MG tablet extended release 24 hr 60 mg PO DAILY amlodipine 10 MG tablet 10 mg PO DAILY Patient Comments: simvastatin 20 MG tablet 20 mg PO QHS benazepril 40 MG tablet 40 mg PO DAILY Patient Comments: acetaminophen 500 mg Tablet 1,000 mg PO Q6H PRN PRN (Reason: Pain Score 1-3) Qty: 0 0RF baclofen 10 mg Tablet 10 mg PO TID PRN PRN (Reason: Muscle Spasm) Qty: 0 0RF oxycodone-acetaminophen 5-325 mg tablet 1 tab PO Q6H PRN (Reason: pain) 7 Days Qty: 14 0RF furosemide 20 mg tablet 20 mg PO .3xw Rx Instructions: MWF metoprolol succinate 50 mg tablet extended release 24 hr See Rx Instructions .ROUTE .COMPLEX Qty: 180 3RF Dose Instruction: TAKE 1 TABLET TWICE A DAY Rx Instructions: TAKE 1 TABLET TWICE A DAY Primary Care Provider: Stephanie Partida Referrals: Stephanie Partida DO [Primary Care Provider] - 3-5 Days Activity Restrictions/Additional Instructions: Take antibiotic as directed and follow-up with your PCP. Return for any worsening of your symptoms. Disposition Disposition: Home, Self Care Discharge Date/Time: 01/14/23 17:57
[2023-01-14 16:50] LABS: Mucous, Urine 0 SEEN /hpf (<or=2+); Red Blood Cells-Urine 0 SEEN /hpf (0-5); Squamous Epithelial Cells - UA 0 SEEN /hpf (5-10)
[2023-01-14 16:59] LABS: Color, Urine Yellow (Yellow); Glucose, Dipstick Normal (Normal); Ketone-Dipstick Negative (Negative); Leukocyte Esterase-Dipstick 500 /ul (Negative); Nitrite-Dipstick Positive (Negative); Occult Blood-Urine 10 /ul (Negative); Protein-Dipstick 30 mg/dl (Negative); Urine Bilirubin Dipstick Negative (Negative); Urine Clarity Clear (Clear); Urine Urobilinogen Normal (Normal); Urine pH 6.5 (5.0 - 8.0)
[2023-01-14] MEDS: Lidocaine 5% Patch 1 PATCH TOPICAL (17:00)
[2023-01-14 17:17] LABS: Bacteria 2+ /hpf (None Seen); White Blood Cells 25-50 SEEN /hpf (0-5)
[2023-01-14] MEDS: Cephalexin 250 MG Capsule 500 MG PO (17:53)
== END 2023-01-14 17:57 | disposition home or self-care (01) ==
PROVIDERS: Physician Assistant; Emergency Provider Emergency Medicine; PCP Family Medicine; Visit Provider Emergency Medicine
DX: N39.0 Urinary tract infection, site not specified (principal); J44.9 Chronic obstructive pulmonary disease, unspecified; Z90.5 Acquired absence of kidney; Z87.891 Personal history of nicotine dependence; I10 Essential (primary) hypertension; I25.10 Atherosclerotic heart disease of native coronary artery without angina pectoris; E78.5 Hyperlipidemia, unspecified; R10.9 Unspecified abdominal pain; Z79.899 Other long term (current) drug therapy; K21.9 Gastro-esophageal reflux disease without esophagitis; R60.9 Edema, unspecified; Z95.5 Presence of coronary angioplasty implant and graft
CPT/HCPCS: 74176; 81001; 87077; 87086; 87088; 87186; 99284

== ENCOUNTER → 2023-01-30 | Outpatient (CLI) | payer MEDICARE, OTHER, SELFPAY | END | disposition home or self-care (01) | LOC: LABSPEC 16:12 | PROVIDERS: PCP Family Medicine; Referring Provider Urology; Visit Provider Urology | DX: N30.00 Acute cystitis without hematuria (principal) | CPT/HCPCS: 87086; 87088; 87186 ==

== ENCOUNTER → 2023-03-22 | Outpatient (CLI) | payer MEDICARE, OTHER, SELFPAY | END | disposition home or self-care (01) | LOC: LABSPEC 13:11 | PROVIDERS: PCP Family Medicine; Visit Provider Family Medicine | DX: Z20.828 Contact with and (suspected) exposure to other viral communicable diseases (principal) | CPT/HCPCS: 87635 ==

== ENCOUNTER → 2023-04-03 | Outpatient (CLI) | payer MEDICARE, OTHER, SELFPAY ==
[2023-04-03 16:10] LABS: Mucous, Urine 0 SEEN /hpf (<or=2+); Squamous Epithelial Cells - UA 0 SEEN /hpf (5-10)
[2023-04-03 16:16] LABS: Color, Urine Yellow (Yellow); Glucose, Dipstick Normal (Normal); Ketone-Dipstick Negative (Negative); Leukocyte Esterase-Dipstick 500 /ul (Negative); Nitrite-Dipstick Positive (Negative); Occult Blood-Urine 25 /ul (Negative); Protein-Dipstick 30 mg/dl (Negative); Urine Bilirubin Dipstick Negative (Negative); Urine Clarity Cloudy (Clear); Urine Urobilinogen Normal (Normal)
[2023-04-03 16:28] LABS: Bacteria 2+ /hpf (None Seen); White Blood Cells >100 SEEN /hpf (0-5)
[2023-04-03 16:29] LABS: Red Blood Cells-Urine 0-5 SEEN /hpf (0-5)
== END | disposition home or self-care (01) ==
LOC: LABSPEC 15:55
PROVIDERS: PCP Family Medicine; Referring Provider Physician Assistant; Visit Provider Physician Assistant
DX: R30.0 Dysuria (principal)
CPT/HCPCS: 81001; 87077; 87086; 87088; 87186

== ENCOUNTER → 2023-04-10 | Outpatient (CLI) | payer MEDICARE, OTHER, SELFPAY | END | disposition home or self-care (01) | LOC: LABSPEC 10:16 | PROVIDERS: PCP Nurse Practitioner Family; Visit Provider Nurse Practitioner Family | DX: N39.0 Urinary tract infection, site not specified (principal) | CPT/HCPCS: 87077; 87086; 87088; 87186 ==

== ENCOUNTER 2023-04-12 06:44 | Observation (INO) | payer MEDICARE, OTHER, SELFPAY ==
[2023-04-12] VITALS (11 sets, daily range): BP systolic 127–156; BP diastolic 60–82; PULSE 78–111; RESP 14–22; TEMP 36.6–36.9; O2SAT 94–99; BMI 30.5; BMI 29.7
--- NOTE | 2023-04-12 07:00 | EKG12_ITS ---
Test Reason : SOB Blood Pressure : / mmHG Vent. Rate : 107 BPM Atrial Rate : 107 BPM P-R Int : 170 ms QRS Dur : 070 ms QT Int : 322 ms P-R-T Axes : 076 041 044 degrees QTc Int : 429 ms Sinus tachycardia with Premature supraventricular complexes Otherwise normal ECG Confirmed by ROSI LEA, ZARIA ([id number]), editor greeting card ADEN HANNON ([id number]) on 04/13/2023 10:45:41 AM Referred By: Confirmed By:ZARIA ARANDA MD
--- NOTE | 2023-04-12 07:00 | RAD_ITS ---
EXAM: XR CHEST, 2 VIEWS CLINICAL INDICATION: SOB. TECHNIQUE: Frontal and lateral views of the chest. COMPARISON: 02/09/2022. FINDINGS: LUNGS AND PLEURAL SPACES: Unremarkable. No consolidation or edema. No pneumothorax. No effusion. HEART: Unremarkable. Cardiac silhouette not enlarged. MEDIASTINUM: Central airways and mediastinal contour are unremarkable. BONES/JOINTS: Unremarkable. No acute fracture. SOFT TISSUES: Small surgical clip above the suprasternal notch. This was present previously. RAD/Chest PA and Lateral IMPRESSION: No acute cardiopulmonary pathology and unchanged when compared to 02/09/2022. Electronically Signed: Doroteo Parra MD at 9:01 EST ,
--- NOTE | 2023-04-12 07:02 | ED.VIS.DYS ---
HPI History of Present Illness Chief Complaint: Shortness of Breath Informant: patient and friend Narrative Narrative: Increasing to the since yesterday. Started on Bactrim yesterday status post 2 doses for UTI symptoms. Prior to that was on a week of cephalexin. No vomiting or diarrhea. No fevers. 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 Denies fevers chills myalgias or headache. Denies sick contacts. Denies asthma or COPD. [facility] Medical History Abnormal mammogram of left breast Arthritis Atherosclerotic heart disease of [place] coronary artery without angina pectoris Cancer Chronic back pain Chronic obstructive pulmonary disease Debility Deep vein thrombosis of left lower extremity (04/2020) Dislocation of left ankle joint Edema Essential hypertension Former smoker Gastroesophageal reflux disease Gout Hemorrhoids Hyperlipidemia Hypokalemia Hypomagnesemia Knee pain, bilateral Left renal atrophy Muscle spasm Neck pain Osteoarthritis Rectal prolapse Renal calculi Secondary pulmonary arterial hypertension Sleep apnea Wears glasses Home Medications isosorbide mononitrate 60 mg tablet,extended release 24 hr 60 mg PO DAILY chest pain 07/09/16 [History Last Taken 04/12/23] amlodipine 10 mg tablet 10 mg PO DAILY blood pressure 12/10/16 [History Last Taken 04/12/23] benazepril 40 mg tablet 40 mg PO DAILY blood pressure 12/10/16 [History Last Taken 04/12/23] simvastatin 20 mg tablet 20 mg PO QHS cholesterol 12/10/16 [History Last Taken 04/11/23] calcium carbonate 500 mg calcium (1,250 mg) tablet (Calcium 500) 500 mg PO BID Supplement 08/25/20 [History Last Taken 04/12/23] zinc gluconate 50 mg tablet 50 mg PO DAILY Health maintenence 03/31/21 [History Last Taken 04/12/23] omeprazole 20 mg capsule,delayed release 20 mg PO BID gerd 06/22/21 [History Last Taken 04/12/23] acetaminophen 500 mg tablet 1,000 mg (2 x 500 mg) PO Q6H PRN PRN Pain Score 1-3 #0 tabs 02/22/22 [Rx Last Taken Unknown] celecoxib 200 mg capsule (Celebrex) 200 mg PO DAILY 08/11/22 [History Last Taken 04/12/23] baclofen 10 mg tablet 10 mg PO BID PRN PRN Muscle Spasm 04/12/23 [History Last Taken Unknown] furosemide 40 mg tablet 40 mg PO DAILY PRN swelling 04/12/23 [History Last Taken Unknown] metoprolol succinate 50 mg tablet,extended release 24 hr See Rx Instructions .Route .COMPLEX 04/12/23 [History Last Taken Unknown] niacinamide 500 mg tablet 500 mg PO DAILY 04/12/23 [History Last Taken Unknown] oxycodone-acetaminophen 5 mg-325 mg tablet 1 tab PO BID PRN PRN pain 04/12/23 [History Last Taken Unknown] sulfamethoxazole 400 mg-trimethoprim 80 mg tablet (Bactrim) 1 tab PO BID 04/12/23 [History Last Taken 04/12/23] Allergy/AdvReac Type Severity Reaction Status Date / Time No Known Allergies Allergy Verified 04/03/23 13:00 Family History Grandmother Breast cancer Surgical History H/O parathyroidectomy (2011) History of ankle surgery History of coronary artery stent placement (09/09/03) History of coronary artery stent placement History of esophagogastroduodenoscopy (EGD) (02/11/22) History of herniorrhaphy 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) History of open reduction and internal fixation (ORIF) procedure (03/2020) History of tonsillectomy and adenoidectomy History of wisdom tooth extraction Social History household members: none housing: condominium current occupational status: retired pets and animals: Yes (dog) Smoking Status: Former smoker alcohol intake: current caffeine: Yes ROS ROS ED Constitutional Constitutional ED: Denies chills, fever(s) or sweats Eyes Eyes: Denies change in vision ENT ENT ED: Denies dysphagia or sore throat Cardiovascular Cardiovascular: Denies chest pain, leg edema, palpitations or racing heartbeat Respiratory/Chest Respiratory/Chest: Reports dyspnea; Denies cough or dyspnea on exertion Gastrointestinal Gastrointestinal: Reports nausea; Denies abdominal pain, diarrhea or vomiting Genitourinary Genitourinary ED: Reports urinary frequency; Denies dysuria or hematuria Musculoskeletal Musculoskeletal: Denies back pain, extremity pain or neck pain Integumentary Denies rash or wounds Neurologic Neurologic: Denies headache(s), paresthesias or weakness EXAM Physical Exam Const Vital Signs: 04/12/23 06:45 04/12/23 08:53 04/12/23 08:55 Temperature 97.8 F Temperature Source Temporal Pulse Rate 111 H 104 H Respiratory Rate 22 H 20 H Respiratory Effort Short of Breath Respiratory Depth Normal Respiratory Pattern Tachypnea Blood Pressure 138/74 H 156/82 H Blood Pressure Mean 95 106 Pulse Ox 97 94 Oxygen Delivery Method Room Air Room Air Room Air 04/12/23 10:15 Temperature Temperature Source Pulse Rate 78 Respiratory Rate 14 Respiratory Effort Respiratory Depth Respiratory Pattern Blood Pressure 155/71 H Blood Pressure Mean 99 Pulse Ox 99 Oxygen Delivery Method Room Air Positive well nourished and well developed General Appearance ED: well developed and NAD HEENT Reports dry mucous membranes normocephalic and atraumatic Mouth ED: Yes dry mucous membranes Mouth: dry mucous membranes Eyes PERRL, EOMs intact bilaterally and conjunctivae normal General Eye ED: Yes normal appearance of both eyes Neck no lymphadenopathy and supple General: Negative for tenderness Chest Wall Chest: Negative for tenderness Resp normal respiratory effort and normal air movement Effort and Inspection: symmetric chest movement; Negative for respiratory distress Cardio regular rhythm and no murmurs Rate: tachycardic Peripheral Pulses: pulses 2+ throughout GI normal to inspection, nondistended, normoactive bowel sounds and non-tender Palpation: Negative for guarding or rebound tenderness present Back/Spine no CVA tenderness and no thoracic nor lumbar tenderness Extremity normal to inspection General Extremety ED: Negative for edema or tenderness General Extremity: Negative for edema Neuro oriented x3 and no sensory deficits noted Sensorium / Orientation: awake and alert Skin no rashes or lesions noted and no wounds MDM MDM MDM Narrative Medical decision making narrative: Interventions / MDM: Differential diagnosis: Bronchitis, hypoxia, DVT Diagnosis considered but do not suspect: Pulmonary embolism however CTA chest negative. My EKG interpretation: Sinus rate of 107, no ST or T wave changes. Imaging independently reviewed and interpreted by myself: 2 view chest x-ray: No acute process; CTA chest: No PE, groundglass changes. External documents reviewed: Test considered but not ordered:N/A ED course: Patient tachycardic and slight tachypnea. She is not hypoxic at rest. Denies cough symptoms. Recent travel by plane a month ago to [place]. No leg swelling or cramping. EKG with sinus tachycardia. Basic labs and D-dimer obtained due to low risk Wells criteria for PE. She is given fluids for the tachycardia. 2 view chest x-ray shows no acute process. Rapid COVID-negative. 0840: Per nursing patient ambulated to the restroom scantly short of breath became tachycardic and hypoxic 85%. Two-view chest x-ray was interpreted by myself showing no acute process. Her D-dimer was pending. Her COVID and flu were negative. She did have recent travel now having increasing exertional symptoms. Her creatinine is normal. Discussed further evaluation with CT angiogram to rule out PE. This was ordered. DVT studies obtain bilateral lower extremity had a left soleus DVT. CT scan negative for PE however groundglass appearance was noted. With these findings COVID PCR was sent for further evaluation. She is covered with Lovenox therapeutic at 1 mg/kg. 1030: With exertional hypoxia she required admission. She felt better on oxygen. I spoke with hospitalist Dr. Gomes for admission pending PCR results. Re-evaluation: stable Disposition discussed with patient/family/significant other: Patient Case discussed with consulting clinician: Hospitalist This note was generated with [employer] dictation software. It may contain incorrect words, spelling, and punctuation that were not noted in checking the note before signing. Lab Data Attestation: I reviewed the patient's lab results. Labs: Laboratory Results - last 24 hr 04/12/23 04/12/23 07:20 08:40 WBC 14.0 H RBC 4.24 Hgb 11.5 L Hct 37.2 MCV 87.7 MCH 27.1 MCHC 30.9 L RDW Std Deviation 52.5 H RDW Coeff of [place] 16.3 H Plt Count 168 MPV 8.7 Immature Gran % (Auto) 0.500 Neut % (Auto) 90.4 H Lymph % (Auto) 2.4 L [place] % (Auto) 4.8 Eos % (Auto) 1.8 Baso % (Auto) 0.1 Absolute Neuts (auto) 12.7 H Absolute Lymphs (auto) 0.34 L Nucleated RBC % 0 Differential Comment SCANNED PT 12.9 INR 1.0 APTT 41.2 H D-Dimer Quant (PE/DVT) < 0.27 L Sodium 139 Potassium 3.8 Chloride 110 H Carbon Dioxide 24.0 Anion Gap 5 BUN 15 Creatinine 0.92 Estim Creat Clear Calc 37.29 Est GFR (MDRD) Af Amer 75 Est GFR (MDRD) Non-Af 62 BUN/Creatinine Ratio 16.3 Glucose 154 H Calcium 9.2 B-Natriuretic Peptide 230.2 H Urine Color Yellow Urine Clarity Clear Urine pH 6.5 Ur Specific [place] 1.010 Urine Protein 30 H Urine Glucose (UA) Normal Urine Ketones Negative Urine Occult Blood Negative Urine Nitrite Negative Urine Bilirubin Negative Urine Urobilinogen Normal Ur Leukocyte Esterase Negative Urine RBC 0 SEEN Urine WBC 0 SEEN Ur Squamous Epith Cells 0 SEEN Urine Bacteria 0 SEEN Urine Mucus 0 SEEN Radiography Diagnostic Testing: Clinical Impression(s) from Imaging Studies Chest X-Ray 04/12/23 07:00 IMPRESSION: No acute cardiopulmonary pathology and unchanged when compared to 02/09/2022. Electronically Signed: Doroteo Parra MD at 9:01 EST , Chest CTA 04/12/23 08:43 IMPRESSION: 1. No CTA evidence of pulmonary thromboemboli, thoracic aortic aneurysm or dissection. 2. Mild interlobular septal thickening in the lower lobe suspicious pulmonary interstitial edema. 3. New small multifocal peripheral groundglass opacities/nodules in the lower lobes may be inflammatory. Small subcentimeter solid pulmonary nodules in the lower lobes were present previously and are unchanged. Follow-up CT chest in one month will help clarify. 4. Resolution of the multiple large left renal cysts may be secondary to left nephrectomy. Please correlate with operative history. Electronically Signed: Doroteo Parra MD at 9:51 EST , Venous Doppler Study 04/12/23 08:44 Interpretation Summary There is no evidence of right lower extremity deep vein thrombosis. Left popliteal fossa 0.81 x 2.96 cm none vascular structure location junior consistent with a Lundberg's cyst. Clinical correlation would be appropriate Acute deep venous thrombosis left soleus vein Patent and compressible bilateral great saphenous vein Ordering Physician: Kirill Johansen Referring Physician: Noemí Gonzales Performed By: Elizabeth Schroeder RVT Discharge Plan Dx/Rx/DC Orders Clinical Impression: Acute dyspnea, Left leg DVT, Hypoxia, Bronchitis Disposition Disposition: Acute Care Hospital [facility] Discharge Date/Time: 04/12/23 12:25
[2023-04-12] MEDS: 0.9% Normal Saline (1000mL) 1,000 ML 1000 ML IV ×2 (07:45→08:51)
[2023-04-12] MEDS: Ondansetron 4 MG/2 ML Vial IV (07:45)
[2023-04-12 07:47] LABS: BUN 15 mg/dL (7-18); BUN/Creat Ratio 16.3 RATIO (10-20); Creatinine, Serum 0.92 mg/dL (0.55-1.02); EST Glomerular Filtration Rate 62 mL/min (>60); Est Glom Filt Rate - Afr Amer 75 mL/min (>60); Estimated Creatinine Clearance 37.29 ml/min; Glucose 154 mg/dL (74-106)
[2023-04-12 07:48] LABS: Anion Gap 5 (5-15); Calcium,Total 9.2 mg/dL (8.5-10.1); Chloride 110 mmol/L (98-107); Potassium 3.8 mmol/L (3.5-5.1); Sodium Level 139 mmol/L (136-145)
[2023-04-12 08:16] LABS: Absolute Lymphocyte Count 0.34 X10^3/uL (0.83-4.51); Absolute Neutrophil Count 12.7 X10^3/uL (2.0-7.7); Basophil# 0.01 X10^3/uL; Basophil% 0.1 % (0-1); Eosinophil# 0.25 X10^3/uL; Eosinophils% 1.8 % (0-5); Hematocrit 37.2 % (37-47); Hemoglobin 11.5 g/dL (12.0-15.0); Lymphocyte # 0.34 X10^3/ul (0.83-4.51); Lymphocyte % 2.4 % (19-41); Mean Corp Hgb Conc 30.9 g/dL (32-36); Mean Corpuscular Hgb 27.1 pg (27.0-32.0); Mean Corpuscular Volume 87.7 fL (81-99); Mean Platelet Vol. 8.7 fl (6.2-12.0); Monocyte# 0.67 X10^3/uL; Monocyte% 4.8 % (0-10); NRBC Flagged by Analyzer 0 % (0-5); Neutrophil # 12.66 X10^3/uL (2.7-7.7); Neutrophil % 90.4 % (47-70); POSITIVE DIFFERENTIAL YES; Platelet Count 168 K/mm3 (150-450); RBC Distribution Width CV 16.3 % (11.6-14.6); RBC Distribution Width SD 52.5 fl (35.1-43.9); Red Blood Count 4.24 M/mm3 (4.2-5.4)
[2023-04-12 08:32] LABS: Differential Indicated SCAN CRITERIA MET
[2023-04-12 08:33] LABS: Differential Comment SCANNED
--- NOTE | 2023-04-12 08:43 | CT_ITS ---
EXAM: CT ANGIOGRAPHY CHEST WITHOUT AND WITH INTRAVENOUS CONTRAST CLINICAL INDICATION: SOB. Hypoxia with exertion. TECHNIQUE: Helically acquired angiography images were obtained of the chest without and with intravenous contrast. This CT exam was performed using one or more of the following dose reduction techniques: automated exposure control, adjustment of the mA and/or kV according to patient size, and/or use of iterative reconstruction technique. MIP reconstructed images were created and reviewed. CONTRAST: IV 75mL [id number] RADIATION DOSE: CTDIvol = 9.74 mGy, DLP = 413.26 mGy-cm COMPARISON: CT chest abdomen pelvis with contrast 02/10/2022. FINDINGS: ARTIFACTS: Some breathing motion artifacts. PULMONARY ARTERIES: Unremarkable. Normal in caliber. No evidence of pulmonary embolism. AORTA: Unremarkable. Normal in caliber. No evidence of dissection. GREAT VESSELS OF AORTIC ARCH: Unremarkable. Normal in caliber. No evidence of dissection. LUNGS AND PLEURAL SPACES: Minimal interlobular septal thickening in the lower lobes may represent pulmonary interstitial edema. Small calcified granuloma in the left anterior lung base. Small ill-defined multifocal peripheral groundglass opacities rather than pulmonary nodules in the lower lobes are new findings. There are some subcentimeter pulmonary nodules in the posterior aspect of both lower lobes which were present previously. No groundglass opacities or pulmonary nodules in the upper lobes. No pleural effusion or thickening. No pneumothorax. HEART: Unremarkable. Heart size is normal. No pericardial effusion. No significant coronary artery calcifications. MEDIASTINUM: Unremarkable. No mediastinal or hilar adenopathy. Esophagus is unremarkable. No hiatal hernia. THYROID: Unremarkable. No thyroid lesions. BONES/JOINTS: Unremarkable. No suspicious lytic or blastic abnormality. LYMPH NODES: Small solid nodes in the left hilum were present previously and are unchanged. KIDNEYS AND URETERS: Interval resolution of the large left renal cysts may be due to left nephrectomy. CT/CTA Chest W/WO Contrast IMPRESSION: 1. No CTA evidence of pulmonary thromboemboli, thoracic aortic aneurysm or dissection. 2. Mild interlobular septal thickening in the lower lobe suspicious pulmonary interstitial edema. 3. New small multifocal peripheral groundglass opacities/nodules in the lower lobes may be inflammatory. Small subcentimeter solid pulmonary nodules in the lower lobes were present previously and are unchanged. Follow-up CT chest in one month will help clarify. 4. Resolution of the multiple large left renal cysts may be secondary to left nephrectomy. Please correlate with operative history. Electronically Signed: Doroteo Parra MD at 9:51 EST ,
--- NOTE | 2023-04-12 08:44 | VDLE_ITS ---
Reason For Study: Shortness of breath RIGHT LEFT GSV is normal. GSV is normal. CFV is compressible, spontaneous, phasic, CFV is compressible, spontaneous, phasic, competent and demonstrates normal competent, and demonstrates normal augmentation. augmentation. FV is compressible, spontaneous, phasic, FV is compressible, spontaneous, phasic, competent and demonstrates normal competent and demonstrates normal augmentation. augmentation. POP V is compressible, spontaneous, phasic, POP V is compressible, spontaneous, phasic, competent and demonstrates normal competent and demonstrates normal augmentation. augmentation. T/P Trunk is compressible. T/P Trunk is compressible. PTV is compressible. PTV is compressible. RT PerV is compressible. LT PerV is compressible. Procedure Acute deep vein thrombosis is noted in the This is a venous duplex using B-mode, color Soleus V. It is dilated and NONCOMPRESSIBLE. flow and spectral Doppler. Exam performed portable in ED. A preliminary report was called and/or faxed to Dr. Johansen. VL/Venous Duplex US - Dusty Extrem Interpretation Summary There is no evidence of right lower extremity deep vein thrombosis. Left poplit eal fossa 0.81 x 2.96 cm none vascular structure location junior consistent with a Lundberg's cyst. Clinic al correlation would be appropriate Acute deep venous thrombosis left soleus vein Patent and compressible bilateral great saphenous vein Ordering Physician: Kirill Johansen Referring Physician: Noemí Gonzales Performed By: Elizabeth Schroeder RVT
[2023-04-12 08:49] LABS: Bacteria 0 SEEN /hpf (None Seen); Mucous, Urine 0 SEEN /hpf (<or=2+); Red Blood Cells-Urine 0 SEEN /hpf (0-5); Squamous Epithelial Cells - UA 0 SEEN /hpf (5-10); White Blood Cells 0 SEEN /hpf (0-5)
[2023-04-12 08:50] LABS: D-Dimer Quantitative (DVT/PE) < 0.27 FEU/ug/m (0.27-0.49)
[2023-04-12 08:59] LABS: Color, Urine Yellow (Yellow); Glucose, Dipstick Normal (Normal); Ketone-Dipstick Negative (Negative); Leukocyte Esterase-Dipstick Negative /ul (Negative); Nitrite-Dipstick Negative (Negative); Occult Blood-Urine Negative /ul (Negative); Protein-Dipstick 30 mg/dl (Negative); Urine Bilirubin Dipstick Negative (Negative); Urine Clarity Clear (Clear); Urine Urobilinogen Normal (Normal); Urine pH 6.5 (5.0 - 8.0)
[2023-04-12 09:45] LABS: Prothrombin Time (Protime)PT. 12.9 SECONDS (11.7-14.9)
[2023-04-12 09:46] LABS: Partial Thromboplast Time 41.2 Seconds (24.1-36.2)
--- NOTE | 2023-04-12 10:16 | HP.PCM_ITS ---
HPI - General General Date of Admission: 04/12/23 Date of Service: 04/12/23 Chief Complaint: shortness of breath HPI Narrative GABRIELA GAMBOA, is a 82 F with an extensive PMH as outlined who presents via the ED on 04/12/2023 with a complaint of shortness of breath. She denied any cough, chest pain, palpitaitons, dizziness, nausea, vomiting or any other symptoms. Review of systems is otherwise negative. SHe had been placed on bactrim the day before admission for UTI, and had been on Keflex for a week prior to that. Vitals in the ED were BP of 155/71, [place] of 78, RR of 14 and oxygen sats as 99% on room air at rest. However, she dropped to 85% with ambulation. CBC showed Hb of 11.5, wbc of 14 and platelets wre 168. D dimer was < 0.27. Chemistry was unremarkable and Urinalysis showed no evidence of UTI. COVID rapid test and Influenza screen was negative. CTA chest showed no evidence of PE but showed mild intrelobular septal thickening in the lowre lobe suspicious for pulmonary interstitial edema and new small multifocal peripheral groundglass opacities/nodules in the lower lobes which may be inflammatory. DVT of the lower extremities showed soleous DVT. Sh is being admitted to be managed for hypoxia of unclear etiology as well as DVT of lower extremity [facility] Medical History Abnormal mammogram of left breast Arthritis Atherosclerotic heart disease of [place] coronary artery without angina pectoris Cancer Chronic back pain Chronic obstructive pulmonary disease Debility Deep vein thrombosis of left lower extremity (04/2020) Dislocation of left ankle joint Edema Essential hypertension Former smoker Gastroesophageal reflux disease Gout Hemorrhoids Hyperlipidemia Hypokalemia Hypomagnesemia Knee pain, bilateral Left renal atrophy Muscle spasm Neck pain Osteoarthritis Rectal prolapse Renal calculi Secondary pulmonary arterial hypertension Sleep apnea Wears glasses Home Medications isosorbide mononitrate 60 mg tablet,extended release 24 hr 60 mg PO DAILY chest pain 07/09/16 [History Last Taken 04/12/23] amlodipine 10 mg tablet 10 mg PO DAILY blood pressure 12/10/16 [History Last Taken 04/12/23] benazepril 40 mg tablet 40 mg PO DAILY blood pressure 12/10/16 [History Last Taken 04/12/23] simvastatin 20 mg tablet 20 mg PO QHS cholesterol 12/10/16 [History Last Taken 04/11/23] calcium carbonate 500 mg calcium (1,250 mg) tablet (Calcium 500) 500 mg PO BID Supplement 08/25/20 [History Last Taken 04/12/23] zinc gluconate 50 mg tablet 50 mg PO DAILY Health maintenence 03/31/21 [History Last Taken 04/12/23] omeprazole 20 mg capsule,delayed release 20 mg PO BID gerd 06/22/21 [History Last Taken 04/12/23] acetaminophen 500 mg tablet 1,000 mg (2 x 500 mg) PO Q6H PRN PRN Pain Score 1-3 #0 tabs 02/22/22 [Rx Last Taken Unknown] celecoxib 200 mg capsule (Celebrex) 200 mg PO DAILY 08/11/22 [History Last Taken 04/12/23] baclofen 10 mg tablet 10 mg PO BID PRN PRN Muscle Spasm 04/12/23 [History Last Taken Unknown] furosemide 40 mg tablet 40 mg PO DAILY PRN swelling 04/12/23 [History Last Taken Unknown] metoprolol succinate 50 mg tablet,extended release 24 hr See Rx Instructions .Route .COMPLEX 04/12/23 [History Last Taken Unknown] niacinamide 500 mg tablet 500 mg PO DAILY 04/12/23 [History Last Taken Unknown] oxycodone-acetaminophen 5 mg-325 mg tablet 1 tab PO BID PRN PRN pain 04/12/23 [History Last Taken Unknown] sulfamethoxazole 400 mg-trimethoprim 80 mg tablet (Bactrim) 1 tab PO BID 04/12/23 [History Last Taken 04/12/23] Allergy/AdvReac Type Severity Reaction Status Date / Time No Known Allergies Allergy Verified 04/03/23 13:00 Family History Grandmother Breast cancer Surgical History H/O parathyroidectomy (2011) History of ankle surgery History of coronary artery stent placement (09/09/03) History of coronary artery stent placement History of esophagogastroduodenoscopy (EGD) (02/11/22) History of herniorrhaphy 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) History of open reduction and internal fixation (ORIF) procedure (03/2020) History of tonsillectomy and adenoidectomy History of wisdom tooth extraction Social History household members: [facility] current occupational status: retired pets and animals: Yes (dog) Smoking Status: Former smoker alcohol intake: current caffeine: Yes ROS Constitutional Constitutional: Reports fatigue; Denies anorexia, change in weight, chills, fever(s), malaise or weakness Eyes Eyes: Denies change in vision ENT HEENT: Denies dysphagia, headache(s), sore throat or throat swelling Cardiovascular Cardiovascular: Denies chest pain, edema, orthopnea, palpitations, paroxysmal nocturnal dyspnea or syncope Respiratory/Chest Respiratory/Chest: Reports shortness of breath at rest and shortness of breath with exertion; Denies cough or wheezing Gastrointestinal Gastrointestinal: Denies abdominal pain, constipation, diarrhea, nausea or vomiting Genitourinary Genitourinary: Denies dysuria or nocturia Musculoskeletal Musculoskeletal: Denies back pain, joint swelling or muscle weakness Neurologic Neurologic: Denies confusion, dizziness, focal weakness, headache(s) or lack of coordination Psychiatric Psychiatric: Denies anxiety Endocrine Endocrinology: Denies change in body appearance Vital Signs Vital Signs Vital Signs: 04/12/23 06:45 04/12/23 08:53 04/12/23 08:55 Temperature 97.8 F Temperature Source Temporal Pulse Rate 111 H 104 H Respiratory Rate 22 H 20 H Respiratory Effort Short of Breath Respiratory Depth Normal Respiratory Pattern Tachypnea Blood Pressure 138/74 H 156/82 H Blood Pressure Mean 95 106 Pulse Ox 97 94 Oxygen Delivery Method Room Air Room Air Room Air 04/12/23 10:15 Temperature Temperature Source Pulse Rate 78 Respiratory Rate 14 Respiratory Effort Respiratory Depth Respiratory Pattern Blood Pressure 155/71 H Blood Pressure Mean 99 Pulse Ox 99 Oxygen Delivery Method Room Air Weight Weight: 166 lb 14.239 oz Body Mass Index (BMI) 30.5 Physical Exam Const alert, oriented x3, no apparent distress and well nourished General Appearance: cooperative and well developed HEENT normocephalic, head/scalp atraumatic and moist oral mucous membranes Eyes PERRL and EOMs intact bilaterally Neck no lymphadenopathy, supple and no JVD Lymph Lymphatic: no lymphadenopathy noted and no lymphedema noted Resp Resp Narrative: Mildly diminished breath sounds bibasilarly. No wheezes or crackles. On room air. Cardio regular rate, regular rhythm, S1 normal heart sound, S2 normal heart sound and no murmurs GI normal to inspection, nondistended, normoactive bowel sounds, soft to palpation, non-tender and non-distended Extremity normal capillary refill, no clubbing, cyanosis or edema and no calf tenderness General Extremity: no tenderness to palpation of joints or extremities Skin General Skin Exam: no breakdown Neuro CN's II-XII intact bilaterally, no focal motor deficits, no sensory deficits noted and deep tendon reflexes 2+ bilaterally Motor Exam: strength 5/5 throughout Psych thought process normal, cooperative and affect normal Appearance: appropriate Results Lab / Micro Data 04/12/23 07:20 04/12/23 07:20 Labs: Laboratory Results - last 24 hr 04/12/23 07:20: WBC 14.0 H, RBC 4.24, Hgb 11.5 L, Hct 37.2, MCV 87.7, MCH 27.1, MCHC 30.9 L, RDW Std Deviation 52.5 H, RDW Coeff of [place] 16.3 H, Plt Count 168, MPV 8.7, Immature Gran % (Auto) 0.500, Neut % (Auto) 90.4 H, Lymph % (Auto) 2.4 L, [place] % (Auto) 4.8, Eos % (Auto) 1.8, Baso % (Auto) 0.1, Absolute Neuts (auto) 12.7 H, Absolute Lymphs (auto) 0.34 L, Nucleated RBC % 0, Differential Comment SCANNED, PT 12.9, INR 1.0, APTT 41.2 H, D-Dimer Quant (PE/DVT) < 0.27 L, Sodium 139, Potassium 3.8, Chloride 110 H, Carbon Dioxide 24.0, Anion Gap 5, BUN 15, Creatinine 0.92, Estim Creat Clear Calc 37.29, Est GFR (MDRD) Af Amer 75, Est GFR (MDRD) Non-Af 62, BUN/Creatinine Ratio 16.3, Glucose 154 H, Calcium 9.2 04/12/23 08:40: Urine Color Yellow, Urine Clarity Clear, Urine pH 6.5, Ur Specific [place] 1.010, Urine Protein 30 H, Urine Glucose (UA) Normal, Urine Ketones Negative, Urine Occult Blood Negative, Urine Nitrite Negative, Urine Bilirubin Negative, Urine Urobilinogen Normal, Ur Leukocyte Esterase Negative, Urine RBC 0 SEEN, Urine WBC 0 SEEN, Ur Squamous Epith Cells 0 SEEN, Urine Bacteria 0 SEEN, Urine Mucus 0 SEEN Micro: Microbiology 04/12/23 07:20 Nasal Secretion SARS-CoV-2 & FLU Antigen (Rapid) - Final Imagaing Radiology Impression Chest X-Ray 04/12/23 07:00 IMPRESSION: No acute cardiopulmonary pathology and unchanged when compared to 02/09/2022. Electronically Signed: Doroteo Parra MD at 9:01 EST , Chest CTA 04/12/23 08:43 IMPRESSION: 1. No CTA evidence of pulmonary thromboemboli, thoracic aortic aneurysm or dissection. 2. Mild interlobular septal thickening in the lower lobe suspicious pulmonary interstitial edema. 3. New small multifocal peripheral groundglass opacities/nodules in the lower lobes may be inflammatory. Small subcentimeter solid pulmonary nodules in the lower lobes were present previously and are unchanged. Follow-up CT chest in one month will help clarify. 4. Resolution of the multiple large left renal cysts may be secondary to left nephrectomy. Please correlate with operative history. Electronically Signed: Doroteo Parra MD at 9:51 EST , Assessment & Plan Assessment/Plan (1) Left leg DVT: (2) Hypoxia: (3) Bronchitis: PLAN: Plan #Hypoxia * Likely due to heart failure. BNP is elevated at 270. Chest CT showed minimal interlobular septal thickening in the lower lobes which may represent pulmonary interstitial edema and small defined multifocal peripheral groundglass opacities rather than pulmonary nodules in the lower lobes. * WBC elevated at 14 but I do not see any evidence of pneumonia. * COVID and flu test negative. Will check respiratory panel also. * Confirmatory COVID PCR was also negative. * Will diurese with IV Lasix 40 mg daily. 2D echo was ordered which showed EF of 65% with stage I diastolic dysfunction and RVSP of 38 mmHg. * Monitor intake and output. Fluid restriction to 1500 cc daily. * Breathing treatments and bronchodilators. Titrate oxygen to maintain saturation above 90%. 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 Will place on subcu Lovenox therapeutic dose. * #Recent UTI * Has been treated for UTI on outpatient basis and currently on Bactrim. Urine culture from 04/10/2023 grew staph hemolyticus; growth was not heavy. Sensitive to nitrofurantoin so placed patient on p.o. nitrofurantoin #Hypertension: On amlodipine and benazepril. Also on metoprolol DVT prophylaxis: Not indicated as patient is on subcu Lovenox with treatment for DVT. CODE STATUS: Full code * Patient counseled extensively about different types of CODE STATUS including full code, DNR CCA and DNR CCA. Patient elects to be full code. Total [id number] time 16 minutes. # Charges/Coding Visit Charges Inpatient E&M: 31140 Init Hosp L3 Procedures Hospitalists Procedures: 85438 Advncd Care Plan 30 Min
--- NOTE | 2023-04-12 10:20 | NURSING ---
DR AHSAN RAMIRES
[2023-04-12] MEDS: Enoxaparin 80 MG/0.8 ML Syringe SC (10:21)
--- NOTE | 2023-04-12 10:37 | NURSING ---
MED SURG OBS KORAM HYPOXIA, LEFT LEG DVT
--- NOTE | 2023-04-12 12:40 | ECHOD_ITS ---
Reason For Study: Dyspnea/SOB Procedure This was a 2D Doppler, Color Flow transthoracic echocardiogram. Exam performed portable in patient room. Left Ventricle Normal LV size. Left ventricular systolic function is normal. The estimated ejection fraction is 65 %. Stage 1 diastolic dysfunction. No regional wall motion abnormalities noted. Right Ventricle Normal RV size. Normal systolic function. Atria Normal left atrium. Normal right atrium. Mitral Valve Moderate focal mitral valve calcification. There is mild to moderate mitral annular calcification. Tricuspid Valve Normal tricuspid valve. Mild to moderate (1-2+) tricuspid valve insufficiency. Pulmonary artery systolic pressure is 38 mmHg. Aortic Valve Trisinus/trileaflet aortic valve. Mild focal aortic valve calcification. Pulmonic Valve Normal pulmonic valve. Great Vessels Normal aortic root. The pulmonary artery is normal size. Normal inferior vena cava. Pericardium/Pleural No pericardial effusion. MMode/2D Measurements & Calculations LVIDd: 3.7 cm IVSd: 1.3 cm Ao root diam: 2.7 cm LVIDs: 2.0 cm LVPWd: 1.1 cm RVDd: 2.9 cm FS: 45.6 % LAV(MOD-bp): 39.3 ml LVAd ap4: 14.3 cm2 SV(MOD-sp4): 20.9 ml LAV(MOD-bp) Indexed: 22.5 ml/m2 LVLd ap4: 6.0 cm LAV(MOD-sp2): 32.7 ml EDV(MOD-sp4): 29.1 ml LAV(MOD-sp4): 42.8 ml EDV(sp4-el): 29.0 ml LVAs ap4: 6.5 cm2 LVLs ap4: 4.7 cm ESV(MOD-sp4): 8.2 ml ESV(sp4-el): 7.6 ml EF(MOD-sp4): 71.8 % EF(sp4-el): 73.7 % SV(sp4-el): 21.4 ml LA A4 area: 16.4 cm2 LA dimension(2D): 3.9 cm RA A4 area: 9.5 cm2 Time Measurements MV dec time: 0.40 sec Doppler Measurements & Calculations MV E max simón: 132.2 cm/sec Lat Peak E' Simón: 6.7 cm/sec Med Peak E' Simón: 6.2 cm/sec MV A max simón: 172.1 cm/sec E/E' lat: 19.7 E/E' med: 21.2 MV E/A: 0.77 MV V2 max: 191.3 cm/sec Ao V2 max: 180.1 cm/sec MV max P.7 mmHg MV dec slope: 333.2 cm/sec2 Ao max P.0 mmHg MV V2 mean: 133.2 cm/sec Ao V2 mean: 144.1 cm/sec MV mean P.5 mmHg Ao mean P.6 mmHg MV V2 VTI: 37.7 cm Ao V2 VTI: 37.8 cm AV (velocity ratio): 0.64 LV V1 max: 119.2 cm/sec PA V2 max: 109.4 cm/sec TR max simón: 290.5 cm/sec LV V1 max P.7 mmHg TR max P.7 mmHg LV V1 mean P.9 mmHg LV V1 mean: 96.2 cm/sec LV V1 VTI: 24.3 cm ECHO/Echo Complete Interpretation Summary Normal LV size. Left ventricular systolic function is normal. The estimated ejection fraction is 65 %. Stage 1 diastolic dysfunction. Pulmonary artery systolic pressure is 38 mmHg. There is mild to moderate mitral annular calcification. Ordering Physician: Nella Gomes Referring Physician: Noemí Gonzales Performed By: Noemí Barone, RAFFAELE, RVT
--- NOTE | 2023-04-12 12:42 | NURSING ---
currently locked out of pt home med screen d/t in chart
[2023-04-12 13:25] LABS: BNP,B-Type NATRIURETIC PEPTIDE 230.2 pg/mL (0-100)
[2023-04-12] MEDS: Furosemide 40 MG/4 ML Vial IV ×2 (14:24→17:26)
[2023-04-12] MEDS: 0.9% Saline Lock 10 ML Syringe IV ×2 (14:25→17:26)
[2023-04-12] MEDS: Ipratropium/Albuterol Sulfate 3 ML AMPUL.NEB INHALATION (19:41)
[2023-04-12] MEDS: Metoprolol(XL)Succ 50 MG Tablet PO (22:56)
[2023-04-12] MEDS: Atorvastatin Calcium 10 MG Tablet PO (22:56)
[2023-04-12] MEDS: Nitrofurantoin Macrocrystals 100 MG Capsule PO (22:56)
[2023-04-12] MEDS: traZODone 50 MG Tablet PO (22:56)
[2023-04-12] MEDS: Enoxaparin 80 MG/0.8 ML Syringe 70 MG SC (22:56)
[2023-04-12] MEDS: Pantoprazole Sodium 20 MG Tablet PO (22:56)
[2023-04-13] VITALS (8 sets, daily range): BP systolic 114–132; BP diastolic 56–60; PULSE 85–104; RESP 16–18; TEMP 36.7–36.8; O2SAT 94–98
[2023-04-13] MEDS: Ipratropium/Albuterol Sulfate 3 ML AMPUL.NEB INHALATION ×3 (01:23→13:25)
[2023-04-13 06:36] LABS: Absolute Neutrophil Count 5.5 X10^3/uL (2.0-7.7); Basophil# 0.01 X10^3/uL; Basophil% 0.1 % (0-1); Eosinophil# 0.27 X10^3/uL; Eosinophils% 3.8 % (0-5); Hematocrit 34.4 % (37-47); Hemoglobin 10.6 g/dL (12.0-15.0); Lymphocyte % 11.2 % (19-41); Mean Corp Hgb Conc 30.8 g/dL (32-36); Mean Corpuscular Hgb 27.3 pg (27.0-32.0); Mean Corpuscular Volume 88.7 fL (81-99); Mean Platelet Vol. 9.2 fl (6.2-12.0); Monocyte# 0.53 X10^3/uL; Monocyte% 7.4 % (0-10); NRBC Flagged by Analyzer 0 % (0-5); Neutrophil # 5.51 X10^3/uL (2.7-7.7); Neutrophil % 77.2 % (47-70); Platelet Count 160 K/mm3 (150-450); RBC Distribution Width CV 16.5 % (11.6-14.6); RBC Distribution Width SD 53.9 fl (35.1-43.9); Red Blood Count 3.88 M/mm3 (4.2-5.4); White Blood Count 7.1 K/mm3 (4.4-11.0)
[2023-04-13 06:52] LABS: Anion Gap 2 (5-15); BUN 12 mg/dL (7-18); BUN/Creat Ratio 12.1 RATIO (10-20); Calcium,Total 8.9 mg/dL (8.5-10.1); Chloride 108 mmol/L (98-107); Creatinine, Serum 0.99 mg/dL (0.55-1.02); EST Glomerular Filtration Rate 57 mL/min (>60); Est Glom Filt Rate - Afr Amer 69 mL/min (>60); Estimated Creatinine Clearance 34.65 ml/min; Glucose 121 mg/dL (74-106); Potassium 3.5 mmol/L (3.5-5.1); Sodium Level 140 mmol/L (136-145)
[2023-04-13] MEDS: Nitrofurantoin Macrocrystals 100 MG Capsule PO (07:51)
[2023-04-13] MEDS: Niacin SA 500 MG Tablet PO (07:51)
[2023-04-13] MEDS: Pantoprazole Sodium 20 MG Tablet PO (07:51)
[2023-04-13] MEDS: Calcium (Elemental) 500 MG Tablet PO (07:51)
[2023-04-13] MEDS: Zinc Sulfate 50 mg zinc (220 mg) ORAL capsule PO (07:52)
[2023-04-13] MEDS: Celecoxib 200 MG Capsule PO (07:52)
[2023-04-13] MEDS: amLODIPine 10 MG Tablet PO (09:33)
[2023-04-13] MEDS: Lisinopril 40 MG Tablet PO (09:33)
[2023-04-13] MEDS: Isosorbide Mononitrate 60 MG Tablet PO (09:34)
[2023-04-13] MEDS: Furosemide 40 MG/4 ML Vial IV (09:34)
[2023-04-13] MEDS: Enoxaparin 80 MG/0.8 ML Syringe 70 MG SC (09:34)
[2023-04-13] MEDS: 0.9% Saline Lock 10 ML Syringe IV (09:34)
--- NOTE | 2023-04-13 10:30 | CASEMGMT ---
RN CM Face to Face with patient for initial transition planning/care coordination assessment. RN CM introduced self and role at [facility]. Patient lying in bed, alert and oriented. Patient willing to participate in assessment and is able to answer all questions appropriately. Care providers, pharmacy, and demographics verified. Patient wishes to discharge home, denies need for home health at this time. Patient states she has no further needs or concerns at this time. CM to follow for discharge planning needs that may arise. PCP: [facility] Specialists: kei Wade; Jayme urologist [facility]erred [facility] Benef[facility]: yes Living Will/HPOA: yes, friend Eloisa Castanon LNOK: brother, friend Living Arrangements: Patient lives alone in a single story condo with 2 steps and grab bars to enter. Patient is independent at home. Transportation: self, friend DME/HHC: Patient has shower chair, raised toilet, cane, walker, and grab bars at home. Patient has had [facility] in the past. No previous SNF Disposition Plan: Patient to discharge home with family support and follow-up plans in place. Elizabeth QUIROZ, RN, CM
--- NOTE | 2023-04-13 11:41 | CASEMGMT ---
Met with patient to complete WILLIAMSON form. WILLIAMSON form explained to patient who voiced understanding and signed form. Original form placed in pt?s chart and copy provided to?patient. Eli Qureshi, Discharge Planning Asst
--- NOTE | 2023-04-13 11:52 | DS.PCM_ITS ---
Providers Date of Admission: 04/12/23 Date of Discharge: 04/13/23 Primary Care Physician: TAMMY Adkins Reason For Visit: HYPOXIA Diagnosis Discharge Diagnosis (1) Left leg DVT: Status: Acute Code(s): I82.402 - Acute embolism and thrombosis of unspecified deep veins of left lower extremity (2) Hypoxia: Status: Acute Code(s): R09.02 - Hypoxemia (3) Bronchitis: Status: Acute Code(s): J40 - Bronchitis, not specified as acute or chronic Plan #Hypoxia * Likely due to heart failure. BNP is elevated at 270. Chest CT showed minimal interlobular septal thickening in the lower lobes which may represent pulmonary interstitial edema and small defined multifocal peripheral groundglass opacities rather than pulmonary nodules in the lower lobes. * WBC elevated at 14 but I do not see any evidence of pneumonia. * COVID and flu test negative. Will check respiratory panel also. * Confirmatory COVID PCR was also negative. * Will diurese with IV Lasix 40 mg daily. 2D echo was ordered which showed EF of 65% with stage I diastolic dysfunction and RVSP of 38 mmHg. * Monitor intake and output. Fluid restriction to 1500 cc daily. * Breathing treatments and bronchodilators. Titrate oxygen to maintain saturation above 90%. 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 Will place on subcu Lovenox therapeutic dose. * #Recent UTI * Has been treated for UTI on outpatient basis and currently on Bactrim. Urine culture from 04/10/2023 grew staph hemolyticus; growth was not heavy. Sensitive to nitrofurantoin so placed patient on p.o. nitrofurantoin #Hypertension: On amlodipine and benazepril. Also on metoprolol DVT prophylaxis: Not indicated as patient is on subcu Lovenox with treatment for DVT. CODE STATUS: Full code * Patient counseled extensively about different types of CODE STATUS including full code, DNR CCA and DNR CCA. Patient elects to be full code. Total lmal-yk-inlb time 16 minutes. # Medications at Discharge Home Medications isosorbide mononitrate 60 mg tablet,extended release 24 hr 60 mg PO DAILY chest pain 07/09/16 amlodipine 10 mg tablet 10 mg PO DAILY blood pressure 12/10/16 benazepril 40 mg tablet 40 mg PO DAILY blood pressure 12/10/16 simvastatin 20 mg tablet 20 mg PO QHS cholesterol 12/10/16 calcium carbonate 500 mg calcium (1,250 mg) tablet (Calcium 500) 500 mg PO BID Supplement 08/25/20 zinc gluconate 50 mg tablet 50 mg PO DAILY Health maintenence 03/31/21 omeprazole 20 mg capsule,delayed release 20 mg PO BID gerd 06/22/21 acetaminophen 500 mg tablet 1,000 mg (2 x 500 mg) PO Q6H PRN PRN Pain Score 1-3 #0 tabs 02/22/22 baclofen 10 mg tablet 10 mg PO BID PRN PRN Muscle Spasm 04/12/23 metoprolol succinate 50 mg tablet,extended release 24 hr See Rx Instructions .Route .COMPLEX 04/12/23 niacinamide 500 mg tablet 500 mg PO DAILY 04/12/23 oxycodone-acetaminophen 5 mg-325 mg tablet 1 tab PO BID PRN PRN pain 04/12/23 apixaban 5 mg (74 tabs) tablets in a dose pack (imedo DVT-PE Treat 30D Start) 5 mg PO BID #74 tabs 04/13/23 furosemide 40 mg tablet 40 mg PO DAILY swelling #30 tabs 04/13/23 nitrofurantoin monohydrate/macrocrystals 100 mg capsule 100 mg PO BIDCM #8 caps 04/13/23 potassium chloride 20 mEq tablet,extended release 20 meq PO DAILY #30 tabs 04/13/23 Hospital Course Summary of Care Provided Minutes Spent on Discharge: 55 Hospital Course: GABRIELA AGMBOA, is a 82 F with an extensive PMH as outlined who presents via the ED on 04/12/2023 with a complaint of shortness of breath. She denied any cough, chest pain, palpitaitons, dizziness, nausea, vomiting or any other symptoms. Review of systems is otherwise negative. SHe had been placed on bactrim the day before admission for UTI, and had been on Keflex for a week prior to that. Vitals in the ED were BP of 155/71, SC of 78, RR of 14 and oxygen sats as 99% on room air at rest. However, she dropped to 85% with ambulation. CBC showed Hb of 11.5, wbc of 14 and platelets wre 168. D dimer was < 0.27. Chemistry was unremarkable and Urinalysis showed no evidence of UTI. COVID rapid test and Influenza screen was negative. CTA chest showed no evidence of PE but showed mild intrelobular septal thickening in the lowre lobe suspicious for pulmonary interstitial edema and new small multifocal peripheral groundglass opacities/nodules in the lower lobes which may be inflammatory. DVT of the lower extremities showed soleous DVT. She was admitted to be managed for hypoxia of unclear etiology as well as DVT of lower extremity. BNP was also mildly elevated and so was thought that his symptoms were likely due to heart failure exacerbation with unknown EF. She was diuresed with IV Lasix and started on t herapeutic Lovenox. 2D echo done showed EF of 65% with stage I diastolic dysfunction. Her shortness of breath improved and she felt much better. She remained on room air. Her urine cultures had grown positive for staph hemolyticus. This was sensitive to nitrofurantoin so she was placed on nitro furantoin. Patient's shortness of breath resolved and she felt much better. She was discharged home on 04/13/2023 on p.o. Lasix 40 mg daily with p.o. potassium supplementation. She was also discharged on treatment dose for Eliquis for treatment of DVT. She is follow-up with her primary care doctor within 1 to 2 weeks. Patient seen and examined prior to discharge. She had no complaints and had an uneventful night. Review of systems otherwise negative. Labs and vitals reviewed. Home medication reviewed and reconciled. Physical Exam Const alert, oriented x3, no apparent distress and well nourished General Appearance: cooperative, comfortable and well developed HEENT normocephalic, head/scalp atraumatic, hearing grossly normal bilaterally and moist oral mucous membranes Mouth: oral and palatal mucosa normal Eyes PERRL and EOMs intact bilaterally Neck no lymphadenopathy, supple and no JVD Lymph Lymphatic: no lymphadenopathy noted and no lymphedema noted Resp Resp Narrative: Mildly diminished breath sounds bibasilarly. No wheezes or crackles. On room air. Cardio regular rate, regular rhythm, S1 normal heart sound, S2 normal heart sound and no murmurs GI normal to inspection, nondistended, normoactive bowel sounds, soft to palpation, non-tender and non-distended Extremity normal to inspection, full ROM, normal capillary refill, no clubbing, cyanosis or edema and no calf tenderness General Extremity: no tenderness to palpation of joints or extremities Skin no rashes or lesions noted General Skin Exam: no breakdown Neuro oriented x3, CN's II-XII intact bilaterally, moves all extremities, no focal motor deficits, no sensory deficits noted and deep tendon reflexes 2+ bilaterally Sensorium / Orientation: awake Motor Exam: strength 5/5 throughout Psych thought process normal, cooperative and affect normal Appearance: appropriate Weight / BMI Weight Weight: 162 lb 14.746 oz Body Mass Index (BMI) 29.7 ABG / Lab / Microbiology Data 04/13/23 05:50 04/13/23 05:50 Laboratory: Laboratory Results - last 24 hr 04/12/23 07:20: B-Natriuretic Peptide 230.2 H 04/13/23 05:50: WBC 7.1, RBC 3.88 L, Hgb 10.6 L, Hct 34.4 L, MCV 88.7, MCH 27.3, MCHC 30.8 L, RDW Std Deviation 53.9 H, RDW Coeff of Feliciano 16.5 H, Plt Count 160, MPV 9.2, Immature Gran % (Auto) 0.300, Neut % (Auto) 77.2 H, Lymph % (Auto) 11.2 L, Eddy % (Auto) 7.4, Eos % (Auto) 3.8, Baso % (Auto) 0.1, Absolute Neuts (auto) 5.5, Absolute Lymphs (auto) 0.80 L, Nucleated RBC % 0, Sodium 140, Potassium 3.5, Chloride 108 H, Carbon Dioxide 30.0, Anion Gap 2 L, BUN 12, Creatinine 0.99, Estim Creat Clear Calc 34.65, Est GFR (MDRD) Af Amer 69, Est GFR (MDRD) Non-Af 57 L, BUN/Creatinine Ratio 12.1, Glucose 121 H, Calcium 8.9 Microbiology: Microbiology 04/12/23 10:23 Mucosa - Nose Coronavirus COVID-19 PCR - Final 04/12/23 07:20 Nasal Secretion SARS-CoV-2 & FLU Antigen (Rapid) - Final Radiography Diagnostic Testing: Radiology Impression Venous Doppler Study 04/12/23 08:44 Interpretation Summary There is no evidence of right lower extremity deep vein thrombosis. Left popliteal fossa 0.81 x 2.96 cm none vascular structure location junior consistent with a Lundberg's cyst. Clinical correlation would be appropriate Acute deep venous thrombosis left soleus vein Patent and compressible bilateral great saphenous vein Ordering Physician: Kirill Johansen Referring Physician: Noemí Gonzales Performed By: Elizabeth Schroeder, RVT Echocardiogram 04/12/23 12:40 Interpretation Summary Normal LV size. Left ventricular systolic function is normal. The estimated ejection fraction is 65 %. Stage 1 diastolic dysfunction. Pulmonary artery systolic pressure is 38 mmHg. There is mild to moderate mitral annular calcification. Ordering Physician: Nella Gomes Referring Physician: Noemí Gonzales Performed By: Noemí Barone RDCS, RVT D/C Instructions Discharge Diet: Low fat / Low cholesterol Discharge Activity: Return to Normal Activity Weight Bearing Status: Weight bearing as tolerated Call your doctor if you observe: Fever of 101 or Higher, Shortness of breath, Dizziness, Swelling in the ankles, Chest pain and Increased palpitations (irregular heartbeat) Meaningful Use Info Meaningful Use Diagnoses (Choose all that apply): CHF CHF SUE/ARB ordered at discharge?: No Reason SUE/ARB not ordered?: Not indicated Documented LVEF (%): 65 Discharge Plan Admission Admit Date/Time: 04/12/23 10:37 Primary Reason for Your Visit: shortness of breath Attending Provider: Nella Gomes Primary Care Provider: Noemí Gonzales Instructions Patient Instructions: ED Dyspnea Discharge Orders/Prescriptions Prescriptions: New nitrofurantoin monohyd/m-cryst 100 mg Capsule 100 mg PO BIDCM Qty: 8 0RF potassium chloride 20 mEq tablet extended release 20 meq PO DAILY Qty: 30 0RF Eliquis DVT-PE Treat 30D Start 5 mg (74 tabs) tablets,dose pack 5 mg PO BID Qty: 74 2RF Rx Instructions: Take 2 tabs (10mg) twice daily for 7 days, then continue with one tablet (5mg) twice daily Continued calcium carbonate [Calcium 500] 500 mg calcium (1,250 mg) tablet 500 mg PO BID zinc gluconate 50 mg tablet 50 mg PO DAILY omeprazole 20 mg capsule,delayed release(DR/EC) 20 mg PO BID isosorbide mononitrate 60 MG tablet extended release 24 hr 60 mg PO DAILY amlodipine 10 MG tablet 10 mg PO DAILY Patient Comments: simvastatin 20 MG tablet 20 mg PO QHS benazepril 40 MG tablet 40 mg PO DAILY Patient Comments: acetaminophen 500 mg Tablet 1,000 mg PO Q6H PRN PRN (Reason: Pain Score 1-3) Qty: 0 0RF baclofen 10 mg Tablet 10 mg PO BID PRN PRN (Reason: Muscle Spasm) oxycodone-acetaminophen 5-325 mg tablet 1 tab PO BID PRN PRN (Reason: pain) metoprolol succinate 50 mg tablet extended release 24 hr See Rx Instructions .ROUTE .COMPLEX Rx Instructions: pt takes 50mg po q HS (unable to get this added into computer except under complex gibson niacinamide 500 mg tablet 500 mg PO DAILY Changed furosemide 40 mg tablet 40 mg PO DAILY Qty: 30 2RF Discontinued celecoxib [Celebrex] 200 mg capsule 200 mg PO DAILY sulfamethoxazole-trimethoprim [Bactrim] 400-80 mg tablet 1 tab PO BID Referrals / Follow Up: Noemí Gonzales, [facility] [Primary Care Provider] - Within 2 Weeks Disposition Disposition (needs filled in before D/C Order can be placed): Home, Self Care Charges/Coding Visit Charges Inpatient E&M: 15011 Disch Hosp >30min
--- NOTE | 2023-04-13 12:17 | PHA.DC_ITS ---
Pharmacy [facility] has performed discharge medication reconciliation and counseling for this patient. The patient was counseled on the following discharge medications and changes in medications for homegoing were reviewed. 1. ELIQUIS 2. MACROBID --> PT TO STOP BACTRIM 3. POTASSIUM CHLORIDE TABLET The Reason for Use, instructions for use, and potential side effects were reviewed for all new medications. The patient's questions regarding all of their medications were answered. The patient was able to verbally demonstrate an understanding of their discharge medications. The patient's discharge medication list was reviewed for discrepancies and discrepancies were resolved. Medications at Discharge Home Medications isosorbide mononitrate 60 mg tablet,extended release 24 hr 60 mg PO DAILY chest pain 07/09/16 amlodipine 10 mg tablet 10 mg PO DAILY blood pressure 12/10/16 benazepril 40 mg tablet 40 mg PO DAILY blood pressure 12/10/16 simvastatin 20 mg tablet 20 mg PO QHS cholesterol 12/10/16 calcium carbonate 500 mg calcium (1,250 mg) tablet (Calcium 500) 500 mg PO BID Supplement 08/25/20 zinc gluconate 50 mg tablet 50 mg PO DAILY Health maintenence 03/31/21 omeprazole 20 mg capsule,delayed release 20 mg PO BID gerd 06/22/21 acetaminophen 500 mg tablet 1,000 mg (2 x 500 mg) PO Q6H PRN PRN Pain Score 1-3 #0 tabs 02/22/22 baclofen 10 mg tablet 10 mg PO BID PRN PRN Muscle Spasm 04/12/23 metoprolol succinate 50 mg tablet,extended release 24 hr See Rx Instructions .Route .COMPLEX 04/12/23 niacinamide 500 mg tablet 500 mg PO DAILY 04/12/23 oxycodone-acetaminophen 5 mg-325 mg tablet 1 tab PO BID PRN PRN pain 04/12/23 apixaban 5 mg (74 tabs) tablets in a dose pack (Eliquis DVT-PE Treat 30D Start) 5 mg PO BID #74 tabs 04/13/23 furosemide 40 mg tablet 40 mg PO DAILY swelling #30 tabs 04/13/23 nitrofurantoin monohydrate/macrocrystals 100 mg capsule 100 mg PO BIDCM #8 caps 04/13/23 potassium chloride 20 mEq tablet,extended release 20 meq PO DAILY #30 tabs 04/13/23
--- NOTE | 2023-04-13 12:46 | CASEMGMT ---
Patient has order for discharge. Patient will discharge on Brilinta. CATRACHITO FITZPATRICK called [facility] and patient has copay of $126. CATRACHITO FITZPATRICK provided savings card over the phone for 30 day free trial for no cost. CATRACHITO FITZPATRICK updated patient regarding copay and savings card, patient voiced appreciation. Patient denied needs at discharge. Patient denied further questions or concerns.
== END 2023-04-13 11:51 | disposition home or self-care (01) ==
LOC: ED 10:50 → PCU 10:55
PROVIDERS: Admitting Provider Student in an Organized Health Care Education/Training Program; Emergency Provider Emergency Medicine; PCP Nurse Practitioner Family; Visit Provider Student in an Organized Health Care Education/Training Program
DX: I82.402 Acute embolism and thrombosis of unspecified deep veins of left lower extremity (principal); J44.9 Chronic obstructive pulmonary disease, unspecified; I27.21 Secondary pulmonary arterial hypertension; I25.10 Atherosclerotic heart disease of native coronary artery without angina pectoris; E78.5 Hyperlipidemia, unspecified; I10 Essential (primary) hypertension; Z20.822 Contact with and (suspected) exposure to COVID-19; Z87.891 Personal history of nicotine dependence; Z79.899 Other long term (current) drug therapy
CPT/HCPCS: 36415; 71046; 71275; 80048; 81001; 83880; 85025; 85379; 85610; 85730; 87428; 87635; 93005; 93306; 93970; 94640; 96361; 96372; 96374; 96375; 96376; 99221; 99285; J7030; Q9967; A4216; G0378; J1940; J2405

== ENCOUNTER → 2023-06-27 | Outpatient (CLI) | payer MEDICARE, OTHER, SELFPAY ==
--- NOTE | 2023-06-27 14:30 | RAD_ITS ---
STUDY: X-RAY - CERVICAL SPINE REASON FOR EXAM: Female, 83 years old. PAIN TECHNIQUE: 5 view(s) of the cervical spine were obtained. COMPARISON: None FINDINGS: Normal anterior atlantoaxial articulation. Normal odontoid process. Normal cervical lordosis. Normal vertebral bodies and endplates. Normal disc space heights. Uncovertebral spurring slightly narrowing the C5-6 and C6-7 bilateral intervertebral neuroforamina. Degenerative facet hypertrophy bilaterally. The soft tissue structures are unremarkable. RAD/Cerv Spine 4 or 5 Views IMPRESSION: Degenerative changes of the visualized cervical spine. Electronically Signed: Hamzah Mishra DO at 17:49 EST ,
== END | disposition home or self-care (01) ==
LOC: MTRAD 14:28
PROVIDERS: PCP Nurse Practitioner Family; Referring Provider Anesthesiology Pain Medicine; Visit Provider Anesthesiology Pain Medicine
DX: M50.30 Other cervical disc degeneration, unspecified cervical region (principal)
CPT/HCPCS: 72050

== ENCOUNTER → 2023-07-11 | Outpatient (CLI) | payer MEDICARE, OTHER, SELFPAY ==
--- OUTSIDE RECORDS SUMMARY | 2023-07-11 10:48 | XMS RPT_ITS | CCD ---
Author Name Unknown Address [address] [place] [address] Organization [facility] Results Test Name Value Interpretation Reference Range Facil ity Procedures Date Procedure Procedure Detail Performing Clinician Start: 04-07-2020 Antibody screen Clinical Notes 04-07-2020 to 12-29-2020 Note Date & Type Note Facility 12-29-2020 Note HNO ID: [id number] Author: Rohan Redding MD Service: ? Author Type: Physician Type: Progress Notes Filed: 12/29/2020 10:38 AM Note Text: Chief complaint: Left ankle pain. History present illness: Patient returns today follow-up given her ankle fracture. Overall doing well. Has no pain. She is doing her regular activities without difficulty. She has no complaints. She is very pleased with her progress and outcome. For the patient's past medical history, past surgical history, medications, allergies, family history, social history, and review of systems please refer to medical history in chart. Physical exam: The patient is alert and oriented no acute distress. She answers all questions appropriate but has a normal affect. She ambulates in sandals with a normal gait. Examination of left lower extremity shows it to be neuro vas intact. All wounds well-healed. Full ankle range of motion. Normal alignment. No instability. Mild prominence over syndesmosis screw. No skin breakdown. Nontender. Imaging: Please refer to the radiographic interpretation Assessment: #1 left ankle fracture. Plan at this time she is doing well. No activity restrictions. Her syndesmosis screw has remained stable. We discussed the screw potentially rubbing on shoe wear. If this becomes an issue, we can remove the screw otherwise it does not need to be removed. No activity restrictions. I will see her back on an as-needed basis. If is any questions or concerns in the future, she will contact the office. Of note we did discuss her occasional knee pain. We discussed topical medications. If this becomes a consistent symptom in the future, she is free to contact our office for an appointment. [facility] 12-29-2020 Note HNO ID: [id number] Author: Jordyn Deal LPN Service: ? Author Type: LICENSED NURSE Type: Progress Notes Filed: 12/29/2020 10:38 AM Note Text: REVIEW OF SYSTEMS: GENERAL: Well developed, well nourished. No acute distress PAIN: Negative for pain, history of chronic pain or current treatment for chronic pain conditions CARDIOVASCULAR: Negative for chest pain, leg swelling and palpations. MSK: Negative for joint swelling SKIN: Negative for lesions, rash, itching, metal sensitivity NEURO: Negative for seizure, trauma, numbness/tingling of extremities. ENDOCRINE: Negative for diabetic associated symptoms HEMATOLOGY: Negative for excessive bleeding, clots, bleeding disorders. [facility] 10-27-2020 Note HNO ID: [id number] Author: Rohan Redding MD Service: ? Author Type: Physician Type: Progress Notes Filed: 10/27/2020 10:55 AM Note Text: Chief complaint: Left ankle pain. This present illness: Patient returns a follow-up on her ankle fracture. She had surgical fixation in March 2020. Overall doing well. Denies any significant problems with her ankle. She states her ankle feels good. Occasionally has some mild soreness on the medial aspect of her ankle. For the patient's past medical history, past surgical history, medications, allergies, family history, social history, and review of systems please refer to medical history in chart. Physical exam: The patient is alert and oriented no acute distress. Answers all questions appropriate. Has a normal affect. Ambulates without assistance. Normal gait. Examination of left lower extremity shows it to be neuro vas intact. Full ankle range of motion without pain. Nontender to palpation over medial lateral ankle. Mild prominence over screw head lateral side without pain or evidence of skin breakdown. Imaging: Please refer to the radiographic interpretation. Assessment: #1 left ankle fracture. Plan this time she is doing extremely well. We will continue weight-bear as tolerated. No activity restrictions. We discussed the x-ray findings and the syndesmosis screw. She currently has no problems. We will monitor this with another x-ray in about 2 months. If necessary, we can take the screw out. Mzos-bdl-blwrwpo pain medication. If she has any questions or concerns prior to her next appointment, she will contact the office. All questions answered. [facility] 08-17-2020 Note HNO ID: [id number] Author: Charmaine Fournier Service: ? Author Type: Physician Plastics Design Engineer Type: Progress Notes Filed: 08/17/2020 11:15 AM Note Text: FOLLOW UP VISIT - ENDOSCOPY NAME: Gabriela Brown Ramon [facility] NO.: [id number] DATE OF SERVICE: 08/17/2020 : 1940 REFERRING PHYSICIAN: Stephanie Partida, Gabriela is a patient I am following for positive Cologuard and blood mixed in stools. Dr. Lemon performed upper and lower endoscopy on 08/06/2020. The patient was found to have four small polyps in the descending colon and cecum which were removed. EGD showed gastritis and duodenitis. Pathology demonstrated: FINAL DIAGNOSIS 1. Stomach, antrum, biopsy (A) ?Gastric antral mucosa with chronic inactive gastritis. - An immunohistochemical stain for Helicobacter pylori organisms has been ordered and will be reported in an addendum. 2. Colon, cecum, polyps, biopsy (B) ?Fragments of tubular adenoma. 3. Colon, descending, polyp, biopsy (C) ?Colonic mucosa with prominent lymphoid aggregate. Vern Romeo M.D., PhD (Electronic Signature) SPECIMEN SUBMITTED A: ANTRUM, BIOPSY H/H B: CECUM POLYPS C: DESCENDING COLON POLYP ADDENDUM ? ? ?Date Ordered: ? ? 08/10/2020 ? ? Date Reported: 08/10/2020 ? ? ? Given the background of chronic gastritis a Helicobacter pylori immunostain was performed on block A1 and is negative for Helicobacter pylori organisms. The patient notes no complaints since the procedure. VITALS: There were no vitals taken for this visit. General: patient is alert, cooperative, pleasant and in no acute distress On examination, the abdomen is benign. Assessment IMPRESSION: s/p upper and lower endoscopy for evaluation of positive cologuard. +findings of adenomatous colon polyps, gastritis and duodenitis PLAN: The operative findings and pathology report were reviewed with the patient, and the patient has had the opportunity to ask questions and have questions answered. Suspect gastritis and duodenitis are likely secondary to patient's NSAIDs. Begin omeprazole , in addition to dietary and lifestyle modifications as discussed. If the patient notes any problems or changes in bowel function, the patient should contact me immediately. Otherwise I recommend follow up colonoscopy in 3 years for surveillance d/t polyps. Patient verbalized understanding of all above and agreed with the plan Diagnoses: (R19.5) Positive colorectal cancer screening using Cologuard test (primary encounter diagnosis) (K29.90) Gastritis and duodenitis (D12.6) Tubular adenoma of colon I spent 29 minutes in the visit, with more than 50% of the total nxad-az-cafu time of the visit in counseling / coordination of care. Charmaine Fournier PA-C [facility] 07-28-2020 Note HNO ID: [id number] Author: Charmaine Fournier Service: ? Author Type: Physician Plastics Design Engineer Type: Progress Notes Filed: 07/29/2020 6:14 PM Note Text: HISTORY AND PHYSICAL Gabriela Ramon 1940 REFERRING PHYSICIAN: Stephanie Partida DO CHIEF COMPLAINT: Consult HPI: The patient is a 80 year old female referred for endoscopy. Gabriela notes a recent history of rectal bleeding. Patient denies any change in bowel habits, weight changes, blood in stools, black tarry stools or abdominal pain. Denies family history of colon issues. Patient states she was doing some lifting and suddenly had a large bowel movement that was mostly blood and blood clots. She continued to note some stool with blood and some tissue mixed in, but states it has now resolved and her stools are back to normal. Patient does note she had been on Eliquis up until just a few days prior to when the rectal bleeding occurred. She was being treated for a DVT that occurred following her ankle surgery in March. was instructed by Dr. Cuba at time of her DVT diagnosis to finish out the prescribed Eliquis and then just continue taking aspirin. She has finished her Eliquis as noted above is on just the aspirin at present time. She also had Cologuard testing done through PCP which was positive. PCP office notes and labs were faxed from referring office and are reviewed at this visit. Gabriela has undergone prior endoscopy. Last colonoscopy 12/23/[address] Snyder with findings of diverticulosis, no concerning findings. Patient denies any problems with sedation in the past. PAST MEDICAL HISTORY Diagnosis Date - Coronary atherosclerosis of unspecified type of vessel, [place] or graft Coronary artery disease - Diverticulosis of colon (without mention of hemorrhage) - Mixed hyperlipidemia Hyperlipidemia - Osteoporosis, unspecified Osteoporosis - PMH - PAST MEDICAL HISTORY OF 1945 Osteomyelitis - Unspecified essential hypertension Essential hypertension - Urinary calculus, unspecified Renal stones PAST SURGICAL HISTORY Procedure Laterality Date - COLONOSCOP W/ OR W/O BRSH SPEC 12/23/2008 Colonoscopy - LAP REPAIR INTIAL INGUINAL HERNIA 01/23/2012 - ORTHOPEDIC SURGERY HX Left 04/07/2020 L Ankle Sx - PAST SURGICAL HISTORY OF 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 - cholecalciferol, vitamin D3, (D-3-5 ORAL) Take by mouth once daily. - aspirin, enteric coated (ECOTRIN LOW STRENGTH) 81 mg EC tablet Take 1 tablet by mouth once daily. - isosorbide mononitrate ER (IMDUR) 60 mg 24 hr tablet Take 1 tablet by mouth once daily. - simvastatin (ZOCOR) 20 mg tablet Take 1 tablet by mouth daily at bedtime. - hydroCHLOROthiazide (HYDRODIURIL, ESIDRIX) 25 mg tablet Take 1 tablet by mouth once daily. - Benazepril HCl 40 mg tablet Take 1 tablet by mouth once daily. - amLODIPine (NORVASC) 10 mg tablet Take 1 tablet by mouth once daily. - atenolol (TENORMIN) 25 mg tablet Take 1 tablet by mouth twice daily. (Patient taking differently: Take 25 mg by mouth once daily. ) - nystatin (MYCOSTATIN) cream Apply 1 application to affected area three times daily. Apply topically to affected area 2-3 times/day up to 14 days - baclofen (LIORESAL) 10 mg tablet Take 10 mg by mouth twice daily as needed (muscle spasms). TAKE 0.5-1 TABLET BID PRN FOR SPASMS - celecoxib (CELEBREX) 200 mg capsule - meloxicam (MOBIC) 15 mg tablet Take 1 tablet by mouth once daily. (Patient not taking: Reported on 04/28/2020 ) - alendronate (FOSAMAX) 70 mg tablet Take 1 tablet by mouth once each week. (Patient not taking: Reported on 04/28/2020 ) No current facility-administered medications for this visit. ALLERGIES: Patient has no known allergies. PERSONAL HISTORY: Social History Tobacco Use - Smoking status: Former Smoker Packs/day: 1.00 Years: 3.00 Pack years: 3.00 Types: Cigarettes Quit date: 05/15/1991 Years since quittin.2 - Smokeless tobacco: Never Used Substance Use Topics - Alcohol use: Yes Comment: RARELY - Drug use: Never FAMILY HISTORY: FAMILY HISTORY Problem Relation Age of Onset - Cancer Father Lung - other (skin ca) Brother REVIEW OF SYMPTOMS: The review of systems data was entered by the nurse and reviewed by pr Nursing Notes: Annabelle Nagy RN 07/28/2020 2:06 PM Signed REVIEW OF SYSTEMS: General: The patient denies fatigue, denies weight loss, de (more content not included)... [facility] 07-14-2020 Note HNO ID: [id number] Author: Rohan Redding Service: ? Author Type: Physician Type: Progress Notes Filed: 07/14/2020 10:58 AM Note Text: Chief complaint: Left ankle pain. History illness: The patient returns today follow-up regarding her left ankle fracture. Overall doing well. She continues to progress. She continues to participate in therapy. Continues to make progress in therapy. Still has some swelling in her left ankle. Denies fevers or chills. Denies any wound drainage. For the patient's past medical history, past surgical history, medications, allergies, family history, social history, and review of systems please refer to medical history in chart. Physical exam: The patient is alert and oriented no acute distress. Answers all questions appropriate. Has a normal affect. Ambulatory without assistance. Slight antalgic gait left side. Examination left lower extremity shows improving ankle range of motion. This is decreased when compared to right side. Wounds healed. Satisfactory alignment. No instability. Swelling present. Imaging: Please refer to the radiographic interpretation. Specimen: #1 left ankle fracture. Plan at this time she is doing extremely well. She will continue with therapy. Activities as tolerated. The swelling will take a significant amount of time to fully resolve. Etit-ufr-vpqekvc pain medication as necessary. I will see her back in 3 months. If there is any problems prior to next moment, she will contact the office. All questions answered. [facility] 07-14-2020 Note HNO ID: [id number] Author: Josefa VillegasGiftbars Service: ? Author Type: Branch Rental Manager Type: Progress Notes Filed: 07/14/2020 10:58 AM Note Text: REVIEW OF SYSTEMS: GENERAL: Well developed, well nourished. No acute distress PAIN: Pain 06/24 CARDIOVASCULAR: Negative for chest pain, leg swelling and palpations. MSK: Negative for joint swelling SKIN: Negative for lesions, rash, itching, metal sensitivity NEURO: Negative for seizure, trauma, numbness/tingling of extremities. ENDOCRINE: Negative for diabetic associated symptoms HEMATOLOGY: Negative for excessive bleeding, clots, bleeding disorders. [facility] 05-19-2020 Note HNO ID: [id number] Author: Rohan Redding Service: ? Author Type: Physician Type: Progress Notes Filed: 05/19/2020 11:18 AM Note Text: Subjective: The patient returns today follow-up regarding her left ankle fracture. She had surgical fixation on 04/07/2020. Overall doing well. Has no pain. She is anxious to begin walking. Does states she has swelling in her left ankle. Denies fevers or chills. She does ice and elevate. Objective: Examination of left lower extremity shows wounds and incisions healing well without signs of infection. Swelling present left ankle. Improving ankle range of motion though decreased when compared to right side. Satisfactory alignment. No instability. Grossly neurovascular intact. Imaging: Please refer to the radiographic interpretation. Assessment: #1 Open left ankle fracture. Plan: At this time she is doing well. We will begin weight-bear as tolerated. She will begin in her boot and she can wean from her boot as she feels comfortable. A prescription for therapy was provided. Khdc-clm-xuleexa pain medication. We discussed her swelling and icing and elevating. Her swelling will last for some time. I will see her back in 6 weeks. She has any questions or concerns prior to next appointment, she will contact the office. All questions answered. [facility] 04-28-2020 Note HNO ID: [id number] Author: Rohan Redding Service: ? Author Type: Physician Type: Progress Notes Filed: 04/28/2020 10:54 AM Note Text: Subjective: The patient returns today follow-up around her open left ankle fracture. Overall doing well. Scheduled to be released from her extended care facility. She has been nonweightbearing. She is been working on range of motion. Denies fevers or chills. Objective: Examination of the left lower extremity shows swelling present in the ankle and foot. No signs of infection. Medial and lateral wounds healing without signs of infection. Assessment: #1 open left ankle fracture dislocation. Plan: At this time sutures will be removed. We will maintain her nonweightbearing status. We discussed range of motion and exercises. We discussed stretching her Achilles tendon. I will see her back in 3 weeks. At that time we will repeat x-rays and consider advancing her weightbearing. Pjwl-nrs-abtsicb pain medication. If she has any questions or concerns prior to the next appointment, she will contact the office. All questions answered. [facility] 04-21-2020 Note HNO ID: [id number] Author: Rohan Redding Service: ? Author Type: Physician Type: Progress Notes Filed: 04/21/2020 11:38 AM Note Text: Subjective: The patient returns today follow-up on her open left ankle fracture dislocation. This was surgically repaired on 04/07/2020. Overall doing well. Currently at extended-care facility. She has been nonweightbearing. Denies fevers or chills. Objective: Examination of left lower extremity shows decreased ankle range of motion. Wounds healing well without signs of infection. Sutures in place. Imaging: Please refer to the radiographic interpretation. Assessment: #1 open left ankle fracture dislocation. Plan: At this time we will leave her sutures in for 1 additional week. I encouraged her to work on range of motion exercises. Nonweightbearing. I will see her back in 1 week. Vbpi-ypp-iyyhhxa pain medication as necessary. Any problems prior to the next appointment, she will contact the office. All questions answered. [facility] 04-10-2020 Note HNO ID: [id number] Author: Bijan Kolb (Pharmacist) Service: Pharmacy Author Type: Pharmacist Type: Plan of Care Filed: 04/10/2020 7:20 PM Note Text: DISCHARGE MEDICATION REVIEW BY PHARMACY Patient Name: Gabriela Ramon Account #: Data Unavailable Admission Date: 04/07/2020 Date of Contact: April 10, 2020 Time of Contact: 7:19 PM Medication list was reviewed by a Pharmacist for drug interactions or drug related problems:Yes Below is a summary of pharmacist recommendations discussed with LIP: No Recommendations at this time from Discharge Medication List. BIJAN KOLB, PHARMACIST April 10, 2020 7:19 PM Pager: [phone] 04/10/2020 7:19 PM Medication List CHANGE how you take these medications aspirin, enteric coated 81 mg EC tablet Commonly known as: ECOTRIN LOW STRENGTH Take 1 tablet by mouth once daily. What changed: how much to take atenolol 25 mg tablet Commonly known as: TENORMIN Take 1 tablet by mouth twice daily. What changed: when to take this HYDROcodone-acetaminophen 5-325 mg per tablet Commonly known as: NORCO Take 1 tablet by mouth every 6 hours as needed for up to 7 days. What changed: reasons to take this CONTINUE taking these medications alendronate 70 mg tablet Commonly known as: FOSAMAX Take 1 tablet by mouth once each week. amLODIPine 10 mg tablet Commonly known as: NORVASC Take 1 tablet by mouth once daily. baclofen 10 mg tablet Commonly known as: LIORESAL Benazepril HCl 40 mg tablet Take 1 tablet by mouth once daily. hydroCHLOROthiazide 25 mg tablet Commonly known as: HYDRODIURIL, ESIDRIX Take 1 tablet by mouth once daily. isosorbide mononitrate ER 60 mg 24 hr tablet Commonly known as: IMDUR Take 1 tablet by mouth once daily. meloxicam 15 mg tablet Commonly known as: MOBIC Take 1 tablet by mouth once daily. nystatin cream Commonly known as: MYCOSTATIN Apply 1 application to affected area three times daily. Apply topically to affected area 2-3 times/day up to 14 days simvastatin 20 mg tablet Commonly known as: ZOCOR Take 1 tablet by mouth daily at bedtime. STOP taking these medications CeleBREX 200 mg capsule Generic drug: celecoxib Where to Get Your Medications You can get these medications from any pharmacy Bring a paper prescription for each of these medications ? aspirin, enteric coated 81 mg EC tablet ? HYDROcodone-acetaminophen 5-325 mg per tablet [facility] 04-10-2020 Note HNO ID: [id number] Author: Rohan Redding Service: Orthopaedic Surgery Author Type: Physician Type: Progress Notes Filed: 04/10/2020 8:27 AM Note Text: ORTHOPAEDIC SURGERY DAILY PROGRESS NOTE Patient Name: Gabriela Ramon Date of Evaluation: 04/10/2020 Admission Date: 04/07/2020 Time of Evaluation: 6:41 AM A/P: 79 YO F POD3?s/p IANDD and ORIF?Left Open Ankle Fracture/Dislocation ? -Pain control -NWB LLE -PT/OT -Walking boot at bedside for discharge -Dressinx4, ABD, michelle -Lester: removed POD1 -DVT ppx: Aspirin 81mg BID x 21 days -Post-op Ancef x 2 doses: 1/2 complete -Discharge planning: PT recommending SNF INTERVAL HPI: Patient monitored, no new events overnight. Pt doing well, pain controlled. Denies fevers/chills or numbness/tingling of LLE. OBJECTIVE: BP 147/70 Pulse 95 Temp 37.5 ?C (99.5 ?F) (Oral) Resp 16 Ht 157.5 cm (5' 2 ) Wt 85.3 kg (188 lb) SpO2 96% BMI 34.39 kg/m? Intake/Output Summary (Last 24 hours) No intake/output data recorded. Exam: General: NAD, AAOx3 Extremities: LLE - Soft dressing to the ankle that is c/d/i - SILT S/S/SP/DP/T. - Motor intact DF/PF/EHL. - DP and PT pulses palpable, foot warm with brisk capillary refill. - Compartments soft, compressible. - Tolerates passive stretch of digits. Labs: BMP: Sodium 134 04/08/2020 Potassium 4.5 04/08/2020 Chloride 100 04/08/2020 CO2 24 04/08/2020 BUN 17 04/08/2020 Creatinine 0.86 04/08/2020 Glucose 212 04/08/2020 CBC: WBC 13.16 04/08/2020 Hemoglobin 13.9 04/08/2020 Hematocrit 41.3 04/08/2020 Platelet Count 205 04/08/2020 Damion Shay MD Resident, Orthopaedic Surgery Pager: [phone] 04/10/2020 6:41 AM Agree with resident assessment and plan. Episodic pain L ankle. Discharge planning [facility] 04-09-2020 Note HNO ID: [id number] Author: Rohan Redding Service: Orthopaedic Surgery Author Type: Physician Type: Progress Notes Filed: 04/09/2020 2:06 PM Note Text: ORTHOPAEDIC SURGERY DAILY PROGRESS NOTE Patient Name: Gabriela Ramon Date of Evaluation: 04/09/2020 Admission Date: 04/07/2020 Time of Evaluation: 6:55 AM A/P: 79 YO F POD2 s/p IANDD and ORIF?Left Open Ankle Fracture/Dislocation ? -Pain control -NWB LLE -PT/OT -Needs walking boot LLE -Dressinx4, ABD, michelle, will change today -Lester: remove POD1 -DVT ppx: Aspirin 81mg BID x 21 days -Post-op Ancef x 2 doses: 1/2 complete -Discharge planning: PT recommending SNF INTERVAL HPI: Patient monitored, no new events overnight. Pt doing well. Pain controlled. Denies fevers/chills. OBJECTIVE: BP 111/78 Pulse 70 Temp 36.6 ?C (97.9 ?F) (Oral) Resp 18 Ht 157.5 cm (5' 2 ) Wt 85.3 kg (188 lb) SpO2 96% BMI 34.39 kg/m? Intake/Output Summary (Last 24 hours) 04/08 2300 - 04/09 0659 In: 200 [PO:200] Out: 375 [Urine:375] Exam: General: NAD, AAOx3 Extremities: LLE - Dressing to L ankle are c/d/i - SILT S/S/SP/DP/T. - Motor intact DF/PF/EHL. - DP and PT pulses palpable, foot warm with brisk capillary refill. - Compartments soft, compressible. - Tolerates passive stretch of digits. Labs: BMP: Sodium 134 04/08/2020 Potassium 4.5 04/08/2020 Chloride 100 04/08/2020 CO2 24 04/08/2020 BUN 17 04/08/2020 Creatinine 0.86 04/08/2020 Glucose 212 04/08/2020 CBC: WBC 13.16 04/08/2020 Hemoglobin 13.9 04/08/2020 Hematocrit 41.3 04/08/2020 Platelet Count 205 04/08/2020 Damion Shay MD Resident, Orthopaedic Surgery Pager: [phone] 04/09/2020 6:55 AM Agree with resident assessment and plan. ASA Discharge planning [facility] 04-08-2020 Note HNO ID: [id number] Author: Rohan Redding Service: Orthopaedic Surgery Author Type: Physician Type: Progress Notes Filed: 04/08/2020 8:58 AM Note Text: Orthopaedic INPATIENT PROGRESS NOTE A/P: 79 YO F POD1 s/p IANDD and ORIF Left Open Ankle Fracture/Dislocation ? -Pain control -NWB LLE -PT/OT -Needs walking boot LLE -Dressinx4, ABD, michelle -Lester: remove POD1 -DVT ppx: Aspirin 81mg BID x 21 days -Post-op Ancef x 2 doses: 1/2 complete -Discharge planning: pending PT recs, 1-2 days INTERVAL HPI: No acute events overnight. Doing well, in good spirits. Pain controlled. MEDICATIONS: Current Facility-Administered Medications Medication Dose Route Frequency - amLODIPine 10 mg tab(s) (NORVASC) 10 mg ORAL DAILY - aspirin, enteric coated 81 mg tab(s) 81 mg ORAL BID - baclofen 10 mg tab(s) (LIORESAL) 10 mg ORAL TID PRN - hydroCHLOROthiazide 25 mg tab(s) (HYDRODIURIL, ESIDRIX) 25 mg ORAL DAILY - isosorbide mononitrate ER 60 mg tab(s) (IMDUR) 60 mg ORAL DAILY (6 AM) - lactated ringers infusion 100 mL/hr INTRAVENOUS CONTINUOUS - ceFAZolin iv piggyback 1 g in D5W (iso-osmotic) 50 mL (ANCEF) 1 g INTRAVENOUS q 8 H - ondansetron 4 mg tab(s) (ZOFRAN) 4 mg ORAL q 6 H PRN Or - ondansetron (PF) 4 mg injection (ZOFRAN) 4 mg INTRAVENOUS q 6 H PRN - docusate sodium 100 mg cap(s) (COLACE) 100 mg ORAL BID - acetaminophen 325 mg tab(s) (TYLENOL) 325 mg ORAL q 4 H PRN - calcium carbonate 500 mg chewable tab(s) (TUMS) 500 mg ORAL TID PRN - diphenhydrAMINE 25 mg (BENADRYL) 25 mg ORAL q 6 H PRN - HYDROcodone 5 mg - acetaminophen 325 mg tablet (NORCO) 1-2 tablet ORAL q 4 H PRN - pantoprazole DR 40 mg tab(s) (PROTONIX) 40 mg ORAL DAILY (6 AM) - lisinopril 40 mg tab(s) (ZESTRIL, PRINIVIL) 40 mg ORAL DAILY - atorvastatin 10 mg tab(s) (LIPITOR) 10 mg ORAL AT BEDTIME - atenolol 25 mg tab(s) (TENORMIN) 25 mg ORAL DAILY PHYSICAL EXAM: BP 161/87 Pulse 99 Temp 36.7 ?C (98.1 ?F) (Oral) Resp 18 Ht 157.5 cm (5' 2 ) Wt 85.3 kg (188 lb) SpO2 94% BMI 34.39 kg/m? Body mass index is 34.39 kg/m?. General appearance: NAD LLE: dressing c/d/i Compartments soft, compressible +SILT s/s/sp/dp/t +motor df/pf/ehl +2 dp/pt pulses DATA: CBC: Recent Labs 04/08/20 0405 WBC 13.16* RBC 4.51 HB 13.9 HCT 41.3 PLT 205 MCV 91.6 MCH 30.8 MPV 9.5 BMP: Recent Labs 04/08/20 0405 NA 134* K 4.5 CHLOR 100 CO2 24 BUN 17 CREAT 0.86 GLUC 212* IMAGING: XR L Ankle: stable ORIF hardware in appropriate position SIGNATURE: Joe Whitaker MD PAGER: [phone] DATE of SERVICE: 04/08/2020 TIME of SERVICE: 5:59 AM Agree with resident assessment and plan. [facility] 04-07-2020 Note HNO ID: [id number] Author: Aby (Rn) CATRACHITO Thompson Service: ? Author Type: Registered Nurse Type: Nursing Progress Note Filed: 04/07/2020 7:12 PM Note Text: X-Rays Left ankle In PACU [facility] 04-07-2020 Note HNO ID: [id number] Author: Lit Valdze Service: ? Author Type: Nurse Last Turner Type: Anesthesia Procedure Notes Filed: 04/07/2020 5:27 PM Note Text: ANESTHESIOLOGY PROCEDURE NOTE Airway General Information Procedure Start Time/Medication Administration: 04/07/2020 5:19 PM Patient location during procedure: OR Consent Obtained: Yes Patient identity confirmed: patient Staffing Anesthesiologist: Jonathan Carlisle SCRAP BREAKER: Lit Valdez Performed by: SCRAP BREAKER Indications and Patient Condition Preoxygenated: yes Patient position: sniffing Indications for airway management: anesthesia anesthesia circuit Method: asleep Cricoid Pressure: Yes Final Airway Details Final airway type: endotracheal airway Final Endotracheal Airway: ETT Cuffed: yes Successful intubation technique: direct laryngoscopy Endotracheal tube insertion site: oral Blade: Joselyn Blade size: #3 ETT size (mm): 7.5 Measured from: lips Measurement (cm): 22 Placement verified by: chest auscultation and capnometry Cormack-Lehane Classification: grade I - full view of glottis Number of attempts at approach: 1 Airway not difficult SIGNATURE: Lit Valdez APRN.CRNA PATIENT NAME: Gabriela Ramon DATE: April 07, 2020 TIME: 5:27 PM CSN: [id number] [facility] Summary Purpose Family History No Family History Records FoundNo Family History Records FoundNo Family History Records FoundNo Family History Records Found Advance Directives No Advanced Directives Records FoundNo Advanced Directives Records FoundNo Advanced Directives Records FoundNo Advanced Directives Records Found Additional Source Comments INFORMATION SOURCE (unrecogn ized section and content) DATE CREATED AUTHOR AUTHOR'S ORGANIZ ATION 12/30/2020 [facility] DATE CREATED AUTHOR AUTHOR'S ORGANIZ ATION 12/31/2020 [facility] DATE CREATED AUTHOR AUTHOR'S ORGANIZ ATION 07/05/2021 [facility] FOR RECORDS PERTAINING TO PATIENTS WHO ARE OR HAVE BEEN ENROLLED IN A CHEMICAL DEPENDENCY/SUBSTANCEABUSE PROGRAM, SOME INFORMATION MAY BE OMITTED. This clinical summary was aggregated from multiple sources. Caution should be exercised in using it in the provision of clinical care. This summary normalizes information from multiple sources, and as a consequence, information in this document may materially change the coding, format and clinical context of patient data. In addition, data may be omitted in some cases. CLINICAL DECISIONS SHOULD BE BASED ON THE PRIMARY CLINICAL RECORDS. [employer] [facility]. provides no warranty or guarantee of the accuracy or completeness of information in this document.
[2023-07-11 12:21] LABS: Absolute Lymphocyte Count 1.31 X10^3/uL (0.83-4.51); Absolute Neutrophil Count 4.8 X10^3/uL (2.0-7.7); Basophil# 0.04 X10^3/uL; Basophil% 0.6 % (0-1); Eosinophil# 0.28 X10^3/uL; Hematocrit 35.3 % (37-47); Hemoglobin 10.4 g/dL (12.0-15.0); Lymphocyte # 1.31 X10^3/ul (0.83-4.51); Lymphocyte % 18.7 % (19-41); Mean Corp Hgb Conc 29.5 g/dL (32-36); Mean Corpuscular Hgb 26.7 pg (27.0-32.0); Mean Corpuscular Volume 90.5 fL (81-99); Mean Platelet Vol. 9.6 fl (6.2-12.0); Monocyte# 0.52 X10^3/uL; Monocyte% 7.4 % (0-10); NRBC Flagged by Analyzer 0 % (0-5); Neutrophil # 4.81 X10^3/uL (2.7-7.7); Neutrophil % 68.9 % (47-70); Platelet Count 251 K/mm3 (150-450); RBC Distribution Width CV 15.3 % (11.6-14.6); RBC Distribution Width SD 50.3 fl (35.1-43.9)
[2023-07-11 13:03] LABS: AST(SGOT) 20 U/L (15-37); Alanine Aminotransfer ALT/SGPT 20 U/L (13-56); Albumin, Serum 3.4 g/dL (3.2-5.0); Alkaline Phosphatase 43 U/L (45-117); Anion Gap 5 (5-15); BUN 24 mg/dL (7-18); Calcium,Total 9.7 mg/dL (8.5-10.1); Chloride 111 mmol/L (98-107); Cholesterol 165 mg/dL (200); Creatinine, Serum 1.33 mg/dL (0.55-1.02); EST Glomerular Filtration Rate 41 mL/min (>60); Est Glom Filt Rate - Afr Amer 49 mL/min (>60); Globulin 3.5 g/dL (2.2-4.2); Glucose 126 mg/dL (74-106); High Density Lipoprotein 62 mg/dL; Potassium 4.2 mmol/L (3.5-5.1); Protein, Total 6.9 g/dL (6.4-8.2); Sodium Level 141 mmol/L (136-145); Triglycerides 90 mg/dL; Very Low Density Lipoprotein 18 mg/dL (5-40)
== END | disposition home or self-care (01) ==
LOC: BFHLAB 09:37
PROVIDERS: PCP Family Medicine; Visit Provider Family Medicine
DX: I25.10 Atherosclerotic heart disease of native coronary artery without angina pectoris (principal); I10 Essential (primary) hypertension
CPT/HCPCS: 36415; 80053; 80061; 85025

== ENCOUNTER → 2023-07-13 | Outpatient (CLI) | payer MEDICARE, OTHER, SELFPAY ==
--- NOTE | 2023-07-13 12:56 | VDLE_ITS ---
Reason For Study: DVT RIGHT LEFT CFV is compressible, spontaneous, phasic, GSV is normal. competent and demonstrates normal CFV is compressible, spontaneous, phasic, augmentation. competent, and demonstrates normal Procedure augmentation. This is a venous duplex using B-mode, color FV is compressible, spontaneous, phasic, flow and spectral Doppler. competent and demonstrates normal Exam performed in department. augmentation. The exam was diagnostic. POP V is compressible, spontaneous, phasic, A preliminary report was called and/or faxed competent and demonstrates normal to Dr. Ryamond's nurse line. augmentation. T/P Trunk is compressible. PTV is compressible. LT PerV is compressible. Previous Soleus V DVT has resolved. VL/Venous Duplex US, Unilateral Interpretation Summary Deep veins of the left lower extremity are patent and compressible segmentally. There is no evidence of left lower extremity deep vein thrombosis. The left great saphenous vein clemente ears patent and compressible segmentally. Resolution of soleus thrombus Ordering Physician: Pavan Raymond Performed By: Joel Henriquez RVT
== END | disposition home or self-care (01) ==
LOC: CVS 12:53
PROVIDERS: PCP Nurse Practitioner Family; Referring Provider Family Medicine; Visit Provider Family Medicine
DX: I82.4Z2 Acute embolism and thrombosis of unspecified deep veins of left distal lower extremity (principal)
CPT/HCPCS: 93971

== ENCOUNTER → 2023-08-04 | Outpatient (CLI) | payer MEDICARE, OTHER, SELFPAY ==
[2023-08-04 16:15] LABS: Anion Gap 6 (5-15); BUN 30 mg/dL (7-18); BUN/Creat Ratio 25.2 RATIO (10-20); Calcium,Total 9.5 mg/dL (8.5-10.1); Chloride 105 mmol/L (98-107); Creatinine, Serum 1.19 mg/dL (0.55-1.02); EST Glomerular Filtration Rate 46 mL/min (>60); Est Glom Filt Rate - Afr Amer 56 mL/min (>60); Glucose 107 mg/dL (74-106); Potassium 4.1 mmol/L (3.5-5.1); Sodium Level 136 mmol/L (136-145)
== END | disposition home or self-care (01) ==
LOC: MTLAB 11:12
PROVIDERS: PCP Family Medicine; Referring Provider Family Medicine; Visit Provider Family Medicine
DX: I10 Essential (primary) hypertension (principal)
CPT/HCPCS: 36415; 80048

== ENCOUNTER 2023-08-06 14:35 | Emergency (ER) | payer MEDICARE, OTHER, SELFPAY ==
[2023-08-06 14:36] VITALS: BP 110/64; PULSE 62; RESP 16; TEMP 36.1; O2SAT 94
[2023-08-06 14:49] VITALS: BMI 28.8
[2023-08-06] MEDS: 0.9% Normal Saline (1000mL) 1,000 ML 1000 ML IV (14:56)
[2023-08-06] MEDS: Ondansetron 4 MG/2 ML Vial IV ×2 (14:56→17:10)
[2023-08-06 15:07] LABS: Absolute Lymphocyte Count 0.25 X10^3/uL (0.83-4.51); Absolute Neutrophil Count 14.3 X10^3/uL (2.0-7.7); Basophil# 0.03 X10^3/uL; Basophil% 0.2 % (0-1); Eosinophil# 0.16 X10^3/uL; Hematocrit 39.7 % (37-47); Hemoglobin 12.1 g/dL (12.0-15.0); Lymphocyte # 0.25 X10^3/ul (0.83-4.51); Lymphocyte % 1.6 % (19-41); Mean Corp Hgb Conc 30.5 g/dL (32-36); Mean Corpuscular Hgb 25.9 pg (27.0-32.0); Mean Corpuscular Volume 84.8 fL (81-99); Mean Platelet Vol. 9.1 fl (6.2-12.0); Monocyte# 0.54 X10^3/uL; Monocyte% 3.5 % (0-10); NRBC Flagged by Analyzer 0 % (0-5); Neutrophil % 93.3 % (47-70); POSITIVE DIFFERENTIAL YES; Platelet Count 302 K/mm3 (150-450); RBC Distribution Width CV 14.6 % (11.6-14.6); RBC Distribution Width SD 45.2 fl (35.1-43.9); Red Blood Count 4.68 M/mm3 (4.2-5.4); White Blood Count 15.3 K/mm3 (4.4-11.0)
[2023-08-06 15:19] LABS: AST(SGOT) 19 U/L (15-37); Alanine Aminotransfer ALT/SGPT 18 U/L (13-56); Albumin, Serum 3.3 g/dL (3.2-5.0); Alkaline Phosphatase 52 U/L (45-117); Anion Gap 9 (5-15); BUN 31 mg/dL (7-18); BUN/Creat Ratio 23.5 RATIO (10-20); Calcium,Total 9.2 mg/dL (8.5-10.1); Chloride 110 mmol/L (98-107); Creatinine, Serum 1.32 mg/dL (0.55-1.02); EST Glomerular Filtration Rate 41 mL/min (>60); Est Glom Filt Rate - Afr Amer 49 mL/min (>60); Globulin 3.4 g/dL (2.2-4.2); Glucose 182 mg/dL (74-106); Lipase 249 U/L (13-75); Potassium 4.4 mmol/L (3.5-5.1); Protein, Total 6.7 g/dL (6.4-8.2); Sodium Level 140 mmol/L (136-145)
--- NOTE | 2023-08-06 15:19 | EX.ED.DYSGE1 ---
HPI <TAMMY Street - Last Filed: 08/06/23 17:34> History of Present Illness Chief Complaint: Nausea/Vomiting/Diarrhea Narrative Narrative: Patient is a 83-year-old female with history of hypertension hyperlipidemia chronic kidney disease with history of nephrectomy presenting to the emergency department for nausea, vomiting, diarrhea that started at 6 AM this morning. Patient states that she started having multiple episodes of vomiting up to 4 times per hour and with the vomiting also came diarrhea. Patient dates she ate pizza last night, however went to bed feeling fine. She denies any sick contacts. She denies any fever or chills, she denies any blood in her stool or vomit. She denies any coughing, denies any specific pain other than some cramping. [facility] <TAMMY Street - Last Filed: 08/06/23 17:34> [facility] Medical History Abnormal mammogram of left breast Arthritis Atherosclerotic heart disease of [place] coronary artery without angina pectoris Cancer Chronic back pain Chronic obstructive pulmonary disease Debility Deep vein thrombosis of left lower extremity (04/2020) Dislocation of left ankle joint Edema Essential hypertension Former smoker Gastroesophageal reflux disease Gout Hemorrhoids Hyperlipidemia Hypokalemia Hypomagnesemia Knee pain, bilateral Left renal atrophy Muscle spasm Neck pain Osteoarthritis Rectal prolapse Renal calculi Secondary pulmonary arterial hypertension Sleep apnea Wears glasses Home Medications isosorbide mononitrate 60 mg tablet,extended release 24 hr 60 mg PO DAILY chest pain 07/09/16 [History Last Taken 04/12/23] amlodipine 10 mg tablet 10 mg PO DAILY blood pressure 12/10/16 [History Last Taken 04/12/23] benazepril 40 mg tablet 40 mg PO DAILY blood pressure 12/10/16 [History Last Taken 04/12/23] simvastatin 20 mg tablet 20 mg PO QHS cholesterol 12/10/16 [History Last Taken 04/11/23] calcium carbonate 500 mg calcium (1,250 mg) tablet (Calcium 500) 500 mg PO BID Supplement 08/25/20 [History Last Taken 04/12/23] zinc gluconate 50 mg tablet 50 mg PO DAILY Health maintenence 03/31/21 [History Last Taken 04/12/23] omeprazole 20 mg capsule,delayed release 20 mg PO BID gerd 06/22/21 [History Last Taken 04/12/23] acetaminophen 500 mg tablet 1,000 mg (2 x 500 mg) PO Q6H PRN PRN Pain Score 1-3 #0 tabs 02/22/22 [Rx Last Taken Unknown] baclofen 10 mg tablet 10 mg PO BID PRN PRN Muscle Spasm 04/12/23 [History Last Taken Unknown] metoprolol succinate 50 mg tablet,extended release 24 hr See Rx Instructions .Route .COMPLEX 04/12/23 [History Last Taken Unknown] niacinamide 500 mg tablet 500 mg PO DAILY 04/12/23 [History Last Taken Unknown] oxycodone-acetaminophen 5 mg-325 mg tablet 1 tab PO BID PRN PRN pain 04/12/23 [History Last Taken Unknown] apixaban 5 mg (74 tabs) tablets in a dose pack ([employer] [facility] DVT-PE Treat 30 Start) 5 mg PO BID #74 tabs 04/13/23 [Rx Last Taken Unknown] furosemide 40 mg tablet 40 mg PO DAILY swelling #30 tabs 04/13/23 [Rx Last Taken Unknown] nitrofurantoin monohydrate/macrocrystals 100 mg capsule 100 mg PO BIDCM #8 caps 04/13/23 [Rx Last Taken Unknown] potassium chloride 20 mEq tablet,extended release 20 meq PO DAILY #30 tabs 04/13/23 [Rx Last Taken Unknown] ondansetron 4 mg disintegrating tablet 4 mg PO Q8H PRN PRN Nausea #20 tabs 08/06/23 [Rx Last Taken Unknown] Allergy/AdvReac Type Severity Reaction Status Date / Time No Known Allergies Allergy Verified 08/06/23 14:40 Family History Grandmother Breast cancer Surgical History H/O parathyroidectomy (2011) History of ankle surgery History of coronary artery stent placement (09/09/03) History of coronary artery stent placement History of esophagogastroduodenoscopy (EGD) (02/11/22) History of herniorrhaphy 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) History of open reduction and internal fixation (ORIF) procedure (03/2020) History of tonsillectomy and adenoidectomy History of wisdom tooth extraction Social History household members: none housing: condominium current occupational status: retired pets and animals: Yes (dog) Smoking Status: Former smoker alcohol intake: current caffeine: Yes ROS <TAMMY Street - Last Filed: 08/06/23 17:34> ROS ED ROS Narrative Constitutional: Negative for fever, chills, weight loss, weakness Eyes: Negative for vision loss, vision change, double vision ENT: Negative for any sore throat, ear pain, congestion Cardiovascular: Negative for any chest pain, tightness, palpitations Respiratory: Negative for any cough, sputum production, hemoptysis, dyspnea, dyspnea on exertion, orthopnea Gastrointestinal: Negative for any abdominal pain, constipation, blood in stool, blood in vomit. Positive for nausea and vomiting, diarrhea : Negative for any urinary frequency, dysuria, retention, blood in urine Muscle skeletal: Negative for any neck pain, back pain Neurological: Negative for any headache, syncope, dizziness Skin: Negative for any rashes, itching, abrasions, lacerations Psychiatric: Negative for any depression, anxiety, stress, suicidal ideation, homicidal ideation Hematologic: Negative for any excessive bruising, easy bleeding EXAM <TAMMY Street - Last Filed: 08/06/23 17:34> Physical Exam Narrative Exam Narrative: Vital signs reviewed. HEET: Head normocephalic atraumatic, TMs clear bilaterally. Posterior pharynx is clear, dry mucous membranes. Nares clear bilaterally. Neck: Supple with no lymphadenopathy or tenderness. No signs of meningismus. Cardiac: Regular rate and rhythm no murmurs gallops or rubs, equal peripheral pulses bilaterally. Respiratory: Lungs clear to auscultation bilaterally. No chest tenderness. Abdomen: Soft, nontender, nondistended. No abdominal bruit or pulsatile masses. No hepatosplenomegaly. Negative for any peritoneal signs. Active bowel sounds in all quadrants. Extremities: No peripheral edema, no signs of gross trauma or deformity. Active full range of motion of all extremities. Neuro: Cranial nerves II through XII intact, no focal neurological deficits. Skin: Clean dry and intact with no rash, purpura, petechiae, vesicles or pustules. Backs/flank: No CVA tenderness, no midline spinal tenderness, no deformity. Psych: Normal mood and affect. No SI, HI or acute psychosis. Const Vital Signs: 08/06/23 14:36 08/06/23 16:12 Temperature 97 F L 97.9 F Temperature Source Temporal Temporal Pulse Rate 62 70 Respiratory Rate 16 18 Blood Pressure 110/64 111/72 Blood Pressure Mean 79 85 Pulse Ox 94 96 Oxygen Delivery Method Room Air Room Air <Dr. Leif Lewis MD - Last Filed: 08/06/23 15:27> Physical Exam Const Vital Signs: 08/06/23 14:36 08/06/23 16:12 Temperature 97 F L 97.9 F Temperature Source Temporal Temporal Pulse Rate 62 70 Respiratory Rate 16 18 Blood Pressure 110/64 111/72 Blood Pressure Mean 79 85 Pulse Ox 94 96 Oxygen Delivery Method Room Air Room Air MDM <TAMMY Street - Last Filed: 08/06/23 17:34> MDM Lab Data Labs: Laboratory Results - last 24 hr 08/06/23 14:46 WBC 15.3 H RBC 4.68 Hgb 12.1 Hct 39.7 MCV 84.8 MCH 25.9 L MCHC 30.5 L RDW Std Deviation 45.2 H RDW Coeff of [place] 14.6 Plt Count 302 MPV 9.1 Immature Gran % (Auto) 0.400 Neut % (Auto) 93.3 H Lymph % (Auto) 1.6 L [place] % (Auto) 3.5 Eos % (Auto) 1.0 Baso % (Auto) 0.2 Absolute Neuts (auto) 14.3 H Absolute Lymphs (auto) 0.25 L Nucleated RBC % 0 Sodium 140 Potassium 4.4 Chloride 110 H Carbon Dioxide 21.0 Anion Gap 9 BUN 31 H Creatinine 1.32 H Estim Creat Clear Calc 29.80 Est GFR (MDRD) Af Amer 49 L Est GFR (MDRD) Non-Af 41 L BUN/Creatinine Ratio 23.5 H Glucose 182 H Calcium 9.2 Total Bilirubin 0.40 AST 19 ALT 18 Alkaline Phosphatase 52 Total Protein 6.7 Albumin 3.3 Globulin 3.4 Albumin/Globulin Ratio 1.0 Lipase 249 H Treatment and Re-Evaluation :: Differential diagnosis includes however is not limited to: Gastroenteritis, influenza, bowel obstruction, diverticulitis, UTI, Patient appears to be in no obvious respiratory distress, vital signs are stable. Physical examination is consistent with dehydration, patient does have some oral dryness. Patient be given IV fluids, Zofran, patient will have some laboratory values drawn concerning for any leukocytosis, electrode abnormality. Urinalysis will be completed. Patient will be reevaluated after IV fluids. Patient CBC showed a leukocytosis with a white blood count of 15.3, patient is not anemic. Patient's chemistries show a creatinine of 1.32, patient's baseline is between 0.8 and 1.2. Patient's GFR 41, glucose 182, patient's lipase was slightly elevated 292. Patient on reevaluation was able to pass a p.o. challenge, Patient was ambulatory to the bathroom, patient steady gait. Patient was given 1 more dose of IV Zofran. Patient's urinalysis is negative for infection. Patient is currently being treated by her urologist. At this time, I do believe patient stable for discharge. She will be given Zofran for home, she was given strict return precaution to return for any worsening abdominal pain, nausea or vomiting. All questions were answered, patient stable for discharge. <Dr. Leif Lewis MD - Last Filed: 08/06/23 15:27> [facility] Narrative Medical decision making narrative: I have personally performed a face to face assessment of the patient and have reviewed the SANTOSH Note. I performed a substantive portion of the visit including all aspects of the following. My moore findings include: History is 83-year-old female history of 1 kidney currently on antibiotic for UTI being treated by Dr. Betancourt of urology. Patient states this morning around 6 AM she started having nausea, vomiting and diarrhea. Feels dehydrated. No fever. No abdominal pain. Exam is [well-appearing 83-year-old female. Vital signs stable afebrile. HEENT exam pupils round react light. Extra motion intact. Normal speech. No facial droop. Dry mucous members. Lungs clear to auscultation. Heart regular rhythm rate about 60 no murmur. Chest wall and ribs nontender. Abdomen soft, nontender, nondistended, normal bowel sounds no peritoneal signs. Back nontender. Moving all 4 extremities. Normal motor strength. 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 Dorsi plantarflexion intact. Neurologically she is awake alert no focal motor deficits.] Medical Decision Making [83-year-old with nausea, vomiting diarrhea. Most likely viral syndrome. Screening labs. IV fluids and Zofran. Currently after the IV Zofran she is feeling better and she is drinking glass of ice water.] Other additions or changes: [None] History & Record Review Discussion w/independent historian: Patient and Family Additional record(s) reviewed:: Prior inpatient record, Prior outpatient record, Prior ED visit and Prior labs Lab Data Attestation: I reviewed the patient's lab results. Lab results narrative: CMP shows gap of 9. BUN/creatinine 31 and 1.32 which is her baseline. Glucose 182. Liver enzymes normal. Lipase slightly elevated to 49. Labs: Laboratory Results - last 24 hr 08/06/23 14:46 WBC 15.3 H RBC 4.68 Hgb 12.1 Hct 39.7 MCV 84.8 MCH 25.9 L MCHC 30.5 L RDW Std Deviation 45.2 H RDW Coeff of [place] 14.6 Plt Count 302 MPV 9.1 Immature Gran % (Auto) 0.400 Neut % (Auto) 93.3 H Lymph % (Auto) 1.6 L [place] % (Auto) 3.5 Eos % (Auto) 1.0 Baso % (Auto) 0.2 Absolute Neuts (auto) 14.3 H Absolute Lymphs (auto) 0.25 L Nucleated RBC % 0 Sodium 140 Potassium 4.4 Chloride 110 H Carbon Dioxide 21.0 Anion Gap 9 BUN 31 H Creatinine 1.32 H Estim Creat Clear Calc 29.80 Est GFR (MDRD) Af Amer 49 L Est GFR (MDRD) Non-Af 41 L BUN/Creatinine Ratio 23.5 H Glucose 182 H Calcium 9.2 Total Bilirubin 0.40 AST 19 ALT 18 Alkaline Phosphatase 52 Total Protein 6.7 Albumin 3.3 Globulin 3.4 Albumin/Globulin Ratio 1.0 Lipase 249 H Discharge Plan Triage Chief Complaint: Nausea/Vomiting/Diarrhea ED Midlevel Provider: Sean Palacios ED Provider: Leif Lewis Dx/Rx/DC Orders Clinical Impression: Diarrhea, Nausea & vomiting, Dehydration Instructions: ED Dehydration (Adult), ED Vomit Diarrhea Nonspec Adult Prescriptions: New ondansetron 4 mg tablet,disintegrating 4 mg PO Q8H PRN PRN (Reason: Nausea) Qty: 20 0RF No Action calcium carbonate [Calcium 500] 500 mg calcium (1,250 mg) tablet 500 mg PO BID zinc gluconate 50 mg tablet 50 mg PO DAILY omeprazole 20 mg capsule,delayed release(DR/EC) 20 mg PO BID isosorbide mononitrate 60 MG tablet extended release 24 hr 60 mg PO DAILY amlodipine 10 MG tablet 10 mg PO DAILY Patient Comments: simvastatin 20 MG tablet 20 mg PO QHS benazepril 40 MG tablet 40 mg PO DAILY Patient Comments: acetaminophen 500 mg Tablet 1,000 mg PO Q6H PRN PRN (Reason: Pain Score 1-3) Qty: 0 0RF baclofen 10 mg Tablet 10 mg PO BID PRN PRN (Reason: Muscle Spasm) oxycodone-acetaminophen 5-325 mg tablet 1 tab PO BID PRN PRN (Reason: pain) metoprolol succinate 50 mg tablet extended release 24 hr See Rx Instructions .ROUTE .COMPLEX Rx Instructions: pt takes 50mg po q HS (unable to get this added into computer except under complex gibson niacinamide 500 mg tablet 500 mg PO DAILY nitrofurantoin monohyd/m-cryst 100 mg Capsule 100 mg PO BIDCM Qty: 8 0RF potassium chloride 20 mEq tablet extended release 20 meq PO DAILY Qty: 30 0RF furosemide 40 mg tablet 40 mg PO DAILY Qty: 30 2RF Eliquis DVT-PE Treat 30D Start 5 mg (74 tabs) tablets,dose pack 5 mg PO BID Qty: 74 2RF Rx Instructions: Take 2 tabs (10mg) twice daily for 7 days, then continue with one tablet (5mg) twice daily Primary Care Provider: Pavan Raymond Referrals: Pavan Raymond, [Primary Care Provider] - Activity Restrictions/Additional Instructions: Please return if you are not better, use the Zofran, advance her diet as tolerated. Your repeat urinalysis showed no infection. Continue taking your course of antibiotics until finished. Disposition Disposition: Home, Self Care
[2023-08-06 16:12] VITALS: BP 111/72; PULSE 70; RESP 18; TEMP 36.6; O2SAT 96
[2023-08-06 17:00] VITALS: BP 121/67; PULSE 93; RESP 17; TEMP 36.4; O2SAT 97
[2023-08-06 17:05] LABS: Bacteria 0 SEEN /hpf (None Seen); Color, Urine Yellow (Yellow); Glucose, Dipstick Normal (Normal); Ketone-Dipstick Negative (Negative); Leukocyte Esterase-Dipstick 25 /ul (Negative); Mucous, Urine 0 SEEN /hpf (<or=2+); Nitrite-Dipstick Negative (Negative); Occult Blood-Urine Negative /ul (Negative); Protein-Dipstick 30 mg/dl (Negative); Red Blood Cells-Urine 0 SEEN /hpf (0-5); Specific Gravity, Urine 1.015 (1.002-1.030); Urine Bilirubin Dipstick Negative (Negative); Urine Clarity Clear (Clear); Urine Urobilinogen Normal (Normal)
[2023-08-06 17:18] LABS: Squamous Epithelial Cells - UA 0-5 SEEN /hpf (5-10); White Blood Cells 0-5 SEEN /hpf (0-5)
[2023-08-06 17:52] VITALS: BP 122/74; PULSE 70; RESP 18; TEMP 36.7; O2SAT 96
== END 2023-08-06 17:54 | disposition home or self-care (01) ==
PROVIDERS: Nurse Practitioner; Emergency Provider Emergency Medicine; PCP Family Medicine; Visit Provider Emergency Medicine
DX: R11.2 Nausea with vomiting, unspecified (principal); E86.0 Dehydration; I12.9 Hypertensive chronic kidney disease with stage 1 through stage 4 chronic kidney disease, or unspecified chronic kidney disease; Z87.891 Personal history of nicotine dependence; R19.7 Diarrhea, unspecified; N18.9 Chronic kidney disease, unspecified; E78.5 Hyperlipidemia, unspecified; Z90.5 Acquired absence of kidney; I25.10 Atherosclerotic heart disease of native coronary artery without angina pectoris; Z79.899 Other long term (current) drug therapy; K21.9 Gastro-esophageal reflux disease without esophagitis; Z79.01 Long term (current) use of anticoagulants; Z86.718 Personal history of other venous thrombosis and embolism; Z95.5 Presence of coronary angioplasty implant and graft
CPT/HCPCS: 80053; 81001; 83690; 85025; 87631; 96361; 96374; 96376; 99283; J7030; A4216; J2405

== ENCOUNTER → 2023-09-14 | Outpatient (CLI) | payer MEDICARE, OTHER, SELFPAY ==
--- NOTE | 2023-09-14 12:02 | BI_ITS ---
MAMMOGRAPHY - BILATERAL SCREENING REASON FOR EXAM: Female, 83 years old. Routine annual screening examination. PERTINENT HISTORY: Grandmother with breast cancer. History of prior left stereotactic breast biopsy. TECHNIQUE: Digital bilateral breast luciana (3D mammographic acquisition) in the CC and MLO projections. 2-D mediolateral oblique (MLO) and craniocaudad (CC) views of both breasts were obtained. CAD: Full Field Digital Mammography with Computer Added Detection was performed. COMPARISON: Comparison is made with prior study dated 06/25/2022 and August 20, 2021. FINDINGS: Breast Composition: The breasts are heterogeneously dense, which may obscure small masses. There are no dominant masses or suspicious calcifications. A tissue clip marker is seen in the anterior upper lateral aspect of the left breast. No other significant abnormalities are identified. There has been no significant change since the prior study. BI/SCRN MAMM (CAD)W/LUCIANA BILAT IMPRESSION: Stable bilateral screening mammogram. Yearly follow-up mammogram recommended. (A) ASSESSMENT CATEGORY: BIRADS Category 2: Benign. A letter regarding these results will be sent to the patient by the facility within 30 days. Approximately 10% of breast cancers are not detected by mammography. A normal mammogram should not delay biopsy of a clinically suspicious abnormality. [id number] Electronically Signed: Rahul Perez MD at 13:15 EDT ,
== END | disposition home or self-care (01) ==
LOC: OPBI 12:00
PROVIDERS: PCP Family Medicine; Referring Provider Family Medicine; Visit Provider Family Medicine
DX: Z12.31 Encounter for screening mammogram for malignant neoplasm of breast (principal); Z80.3 Family history of malignant neoplasm of breast
CPT/HCPCS: 77063; 77067

== ENCOUNTER → 2023-09-19 | Outpatient (CLI) | payer MEDICARE, OTHER, SELFPAY ==
--- NOTE | 2023-09-19 12:50 | RAD_ITS ---
STUDY: X-RAY - RIGHT SHOULDER REASON FOR EXAM: Female, 83 years old. SHOULDER PAIN TECHNIQUE: 4 views of the right shoulder. COMPARISON: None. FINDINGS: There is minimal glenohumeral arthrosis. There is mild acromioclavicular arthrosis. Normal acromion. Normal humeral head and visualized proximal humerus. The soft tissue structures are unremarkable. There is no demonstrated fracture. Normal visualized pulmonary apex. RAD/Shoulder min 2 Views IMPRESSION: Minimal glenohumeral arthrosis. Mild acromioclavicular arthrosis. Electronically Signed: Maynor Chacon MD at 16:11 EDT ,
== END | disposition home or self-care (01) ==
LOC: MTRAD 12:48
PROVIDERS: PCP Family Medicine; Referring Provider Clinical Nurse Specialist Adult Health; Visit Provider Clinical Nurse Specialist Adult Health
DX: M25.511 Pain in right shoulder (principal)
CPT/HCPCS: 73030

== ENCOUNTER → 2023-10-10 | Outpatient (CLI) | payer MEDICARE, OTHER, SELFPAY ==
[2023-10-10 12:53] LABS: Erythrocyte Sedimentation Rate 14 mm/hr (0-30)
[2023-10-10 12:55] LABS: Absolute Lymphocyte Count 1.36 X10^3/uL (0.83-4.51); Basophil# 0.06 X10^3/uL; Basophil% 0.9 % (0-1); Eosinophil# 0.34 X10^3/uL; Eosinophils% 5.3 % (0-5); Hematocrit 32.6 % (37-47); Hemoglobin 9.7 g/dL (12.0-15.0); Lymphocyte # 1.36 X10^3/ul (0.83-4.51); Lymphocyte % 21.2 % (19-41); Mean Corp Hgb Conc 29.8 g/dL (32-36); Mean Corpuscular Hgb 24.8 pg (27.0-32.0); Mean Corpuscular Volume 83.4 fL (81-99); Mean Platelet Vol. 9.7 fl (6.2-12.0); Monocyte# 0.64 X10^3/uL; NRBC Flagged by Analyzer 0 % (0-5); Neutrophil # 3.99 X10^3/uL (2.7-7.7); Neutrophil % 62.1 % (47-70); Platelet Count 245 K/mm3 (150-450); RBC Distribution Width CV 15.6 % (11.6-14.6); RBC Distribution Width SD 47.5 fl (35.1-43.9); Red Blood Count 3.91 M/mm3 (4.2-5.4); White Blood Count 6.4 K/mm3 (4.4-11.0)
[2023-10-10 13:21] LABS: ALB/GLOB Ratio 0.9 RATIO (0.9-2.4); AST(SGOT) 24 U/L (15-37); Alanine Aminotransfer ALT/SGPT 18 U/L (13-56); Albumin, Serum 3.4 g/dL (3.2-5.0); Alkaline Phosphatase 51 U/L (45-117); Anion Gap 7 (5-15); BUN 21 mg/dL (7-18); BUN/Creat Ratio 18.6 RATIO (10-20); CRP < 2.90 mg/L (0.0-3.0); Calcium,Total 9.7 mg/dL (8.5-10.1); Chloride 105 mmol/L (98-107); Creatinine, Serum 1.13 mg/dL (0.55-1.02); EST Glomerular Filtration Rate 49 mL/min (>60); Est Glom Filt Rate - Afr Amer 59 mL/min (>60); Globulin 3.6 g/dL (2.2-4.2); Glucose 107 mg/dL (74-106); Potassium 4.6 mmol/L (3.5-5.1); Sodium Level 137 mmol/L (136-145)
== END | disposition home or self-care (01) ==
LOC: MTLAB 11:03
PROVIDERS: PCP Family Medicine; Referring Provider Family Medicine; Visit Provider Family Medicine
DX: R13.10 Dysphagia, unspecified (principal); R63.4 Abnormal weight loss; R53.83 Other fatigue
CPT/HCPCS: 36415; 80053; 85025; 85652; 86140

== ENCOUNTER → 2023-10-16 | Outpatient (CLI) | payer MEDICARE, OTHER, SELFPAY ==
--- NOTE | 2023-10-16 15:18 | CT_ITS ---
STUDY: CT ABDOMEN AND PELVIS WITH CONTRAST REASON FOR EXAM: Female, 83 years old. DYSPHAGIA/WEIGHT LOSS RADIATION DOSAGE (If Supplied By Facility): CTDIvol = ( 13.32 ) mGy, DLP = ( 865.04 ) mGycm TECHNIQUE: Oral and amp; IV Readi-CAT and amp; 100mL Isovue-300 was administered. Transaxial images were obtained from the dome of the diaphragm to the symphysis pubis. Multiplanar coronal and sagittal images were reformatted. The protocol utilizes one or more of the following dose reduction techniques: automated exposure control, adjustment of mA and/or kV according to patient size,and/or use of iterative reconstruction technique. COMPARISON: Prior study dated: 02/10/2022 FINDINGS: The visualized lung bases are unremarkable. Probable mitral valve listhesis. Normal liver. No evidence of gallstones. Prominent common bile duct and proximal pancreatic duct without definite stones. Better evaluated by MRCP. Normal spleen. The pancreas is not enlarged. Normal bilateral adrenal glands. Small simple cysts in the upper pole of the right kidney measuring about 2.2 cm for which no further follow-up exam is needed. Status post right nephrectomy. No evidence of right hydronephrosis. Normal visualized stomach. Normal small intestine. Mild sigmoid diverticulosis without evidence of acute diverticulitis. Borderline thickening of the appendix with contrast or appendicolith within it without definite inflammatory changes. There is diffuse atherosclerotic calcification of the abdominal aorta with elongation and tortuosity, but without a demonstrated aneurysm. No retroperitoneal adenopathy. Normal urinary bladder. Calcifications in the uterus consistent with calcified uterine fibroids. No pelvic mass. Normal abdominal wall. There are diffuse degenerative changes of the visualized lumbar spine. CT/Abdomen/Pelvis WITH Contrast IMPRESSION: 1. Status post left nephrectomy. 2. No focal acute inflammatory process. 3. Mild diverticulosis without evidence of acute diverticulitis. Electronically Signed: Nate Oden MD at 16:16 EDT ,
== END | disposition home or self-care (01) ==
LOC: CT 14:56
PROVIDERS: PCP Family Medicine; Referring Provider Family Medicine; Visit Provider Family Medicine
DX: R13.10 Dysphagia, unspecified (principal); R63.4 Abnormal weight loss
CPT/HCPCS: 74177; Q9967

== ENCOUNTER → 2023-11-22 | Outpatient (CLI) | payer MEDICARE, OTHER, SELFPAY ==
[2023-11-22 15:19] LABS: Absolute Lymphocyte Count 1.35 X10^3/uL (0.83-4.51); Absolute Neutrophil Count 7.8 X10^3/uL (2.0-7.7); Basophil# 0.04 X10^3/uL; Basophil% 0.4 % (0-1); Eosinophil# 0.14 X10^3/uL; Eosinophils% 1.4 % (0-5); Hematocrit 32.8 % (37-47); Hemoglobin 9.5 g/dL (12.0-15.0); Lymphocyte # 1.35 X10^3/ul (0.83-4.51); Lymphocyte % 13.4 % (19-41); Mean Corpuscular Hgb 24.4 pg (27.0-32.0); Mean Corpuscular Volume 84.1 fL (81-99); Mean Platelet Vol. 9.5 fl (6.2-12.0); Monocyte# 0.73 X10^3/uL; Monocyte% 7.3 % (0-10); NRBC Flagged by Analyzer 0 % (0-5); Neutrophil # 7.75 X10^3/uL (2.7-7.7); Platelet Count 247 K/mm3 (150-450); RBC Distribution Width CV 17.2 % (11.6-14.6); RBC Distribution Width SD 52.9 fl (35.1-43.9); White Blood Count 10.1 K/mm3 (4.4-11.0)
[2023-11-22 15:57] LABS: AST(SGOT) 22 U/L (15-37); Alanine Aminotransfer ALT/SGPT 20 U/L (13-56); Albumin, Serum 3.3 g/dL (3.2-5.0); Alkaline Phosphatase 50 U/L (45-117); Anion Gap 7 (5-15); BUN 23 mg/dL (7-18); BUN/Creat Ratio 16.9 RATIO (10-20); Calcium,Total 9.8 mg/dL (8.5-10.1); Chloride 109 mmol/L (98-107); Creatinine, Serum 1.36 mg/dL (0.55-1.02); EST Glomerular Filtration Rate 39 mL/min (>60); Est Glom Filt Rate - Afr Amer 48 mL/min (>60); Ferritin 15 ng/mL (8-252); Globulin 3.2 g/dL (2.2-4.2); Glucose 116 mg/dL (74-106); Iron 27 ug/dL (50-170); Potassium 4.4 mmol/L (3.5-5.1); Protein, Total 6.5 g/dL (6.4-8.2); Sodium Level 139 mmol/L (136-145)
== END | disposition home or self-care (01) ==
LOC: LABSPEC 13:18
PROVIDERS: PCP Nurse Practitioner Family; Referring Provider Nurse Practitioner Family; Visit Provider Nurse Practitioner Family
DX: R42 Dizziness and giddiness (principal); E61.1 Iron deficiency
CPT/HCPCS: 36415; 80053; 82728; 83540; 85025

== ENCOUNTER → 2023-12-11 | Outpatient (CLI) | payer MEDICARE, OTHER, SELFPAY ==
--- NOTE | 2023-12-11 12:59 | CDU_ITS ---
Reason For Study: New on set of dizziness Rt. Velocities/BP Lt. Velocities/BP Prox CCA 61.7/11.6 cm/sec. Prox CCA 75.9/18.2 cm/sec. Mid CCA 73/14.5 cm/sec. Mid CCA 74.9/19.2 cm/sec. Dist CCA 76.8/18.2 cm/sec. Dist CCA 70.2/15.4 cm/sec. Prox ICA 64.2/10.2 cm/sec. Prox ICA 56/18.2 cm/sec. Mid ICA 64.2/18.8 cm/sec. Mid ICA 86.3/23.9 cm/sec. Dist ICA 71.6/18.8 cm/sec. Dist ICA 45/13.7 cm/sec. Rt. ICA/CCA = 0.98. Lt. ICA/CCA = 1.15. Prox ECA 110.9/2.8 cm/sec. Prox ECA 90/6.9 cm/sec. Rt. Vert. 38.1/9.7 cm/sec. Lt. Vert. 30.8/7.3 cm/sec. Right Extracranial There is intimal thickening but no significant atherosclerotic plaque noted in the right common carotid artery. There is heterogeneous, irregular atherosclerotic plaque noted in the right internal carotid artery. There is intimal thickening but no significant atherosclerotic plaque noted in the right external carotid artery. Antegrade flow is noted in the right vertebral artery. Left Extracranial There is intimal thickening but no significant atherosclerotic plaque noted in the left common carotid artery. There is homogeneous, smooth atherosclerotic plaque noted in the left internal carotid artery. There is intimal thickening but no significant atherosclerotic plaque noted in the left external carotid artery. Antegrade flow is noted in the left vertebral artery. Procedure This is a Carotid Duplex examination using B-mode, color flow and specral Doppler. Carotid Duplex [id number]. Exam performed in department. VL/Carotid Duplex Ultrasound Interpretation Summary Minimal plaque at the proximal right internal carotid artery with less than 50% stenosis Less than 50% stenosis right external carotid artery Minimal smooth plaque at the proximal left internal carotid artery with less th an 50% stenosis Less than 50% stenosis left external carotid artery Patent and antegrade vertebral arteries bilaterally No advancement of disease from her previous blood flow screening examination of August 25, 2022 Ordering Physician: Noemí Gonzales Referring Physician: Noemí Gonzales Performed By: Elizabeth Schroeder RVT
== END | disposition home or self-care (01) ==
LOC: CVS 12:51
PROVIDERS: PCP Nurse Practitioner Family; Referring Provider Nurse Practitioner Family; Visit Provider Nurse Practitioner Family
DX: R42 Dizziness and giddiness (principal)
CPT/HCPCS: 93880

== ENCOUNTER → 2023-12-27 | Outpatient (CLI) | payer MEDICARE, OTHER, SELFPAY ==
[2023-12-27 12:19] LABS: Ferritin 41 ng/mL (8-252); Iron 63 ug/dL (50-170)
[2023-12-27 12:20] LABS: Absolute Lymphocyte Count 1.15 X10^3/uL (0.83-4.51); Basophil# 0.05 X10^3/uL; Basophil% 0.7 % (0-1); Eosinophil# 0.21 X10^3/uL; Hematocrit 37.1 % (37-47); Hemoglobin 11.3 g/dL (12.0-15.0); Lymphocyte # 1.15 X10^3/ul (0.83-4.51); Lymphocyte % 16.4 % (19-41); Mean Corp Hgb Conc 30.5 g/dL (32-36); Mean Corpuscular Hgb 27.1 pg (27.0-32.0); Mean Platelet Vol. 9.2 fl (6.2-12.0); Monocyte# 0.57 X10^3/uL; Monocyte% 8.1 % (0-10); NRBC Flagged by Analyzer 0 % (0-5); Neutrophil % 71.4 % (47-70); POSITIVE MORPHOLOGY YES; Platelet Count 206 K/mm3 (150-450); RBC Distribution Width CV 20.9 % (11.6-14.6); RBC Distribution Width SD 68.1 fl (35.1-43.9); Red Blood Count 4.17 M/mm3 (4.2-5.4)
[2023-12-27 12:33] LABS: Differential Indicated SCAN CRITERIA MET
[2023-12-27 14:06] LABS: Anisocytosis 1+
== END | disposition home or self-care (01) ==
LOC: MTLAB 10:30
PROVIDERS: PCP Nurse Practitioner Family; Referring Provider Family Medicine; Visit Provider Family Medicine
DX: D50.9 Iron deficiency anemia, unspecified (principal)
CPT/HCPCS: 36415; 82728; 83540; 85025

== ENCOUNTER → 2024-04-05 | Outpatient (CLI) | payer MEDICARE, OTHER, SELFPAY ==
--- NOTE | 2024-04-05 15:54 | VDLE_ITS ---
Reason For Study: Left leg pain RIGHT LEFT CFV is compressible, spontaneous, phasic, GSV is normal. competent and demonstrates normal CFV is compressible, spontaneous, phasic, augmentation. competent, and demonstrates normal Procedure augmentation. This is a venous duplex using B-mode, color FV is compressible, spontaneous, phasic, flow and spectral Doppler. competent and demonstrates normal Exam performed in department. augmentation. A preliminary report was called and/or faxed POP V is compressible, spontaneous, phasic, to [employer]. competent and demonstrates normal augmentation. T/P Trunk is compressible. PTV is compressible. LT PerV is compressible. Nonvascularized structure noted in the left popliteal fossa that measures 1.16 x 4.27 x 3.10 cm. VL/Venous Duplex US, Unilateral Interpretation Summary Deep veins of the left lower extremity are patent and compressible segmentally. There is no evidence of left lower extremity deep vein thrombosis. Valvular competence appears intac t within the proximal deep venous system on the left . The left great saphenous vein appears patent a nd compressible segmentally. A non-vascular, hypoechoic structure is noted in the left poplitea l space, measuring 1.16 cm x 4.27 cm x 3.10 cm. This probably represents a popliteal cyst. Clinica l correlation is advised. The right common femoral vein is patent and compressible . Ordering Physician: Noemí Gonzales Referring Physician: Noemí Gonzales Performed By: Elizabeth Schroeder RVT
== END | disposition home or self-care (01) ==
PROVIDERS: PCP Nurse Practitioner Family; Referring Provider Nurse Practitioner Family; Visit Provider Nurse Practitioner Family
DX: M79.662 Pain in left lower leg (principal); Z86.718 Personal history of other venous thrombosis and embolism
CPT/HCPCS: 93971

== ENCOUNTER → 2024-05-13 | Outpatient (CLI) | payer MEDICARE, OTHER, SELFPAY ==
[2024-05-13 18:06] LABS: Vitamin B12 354 pg/mL (211-911); Vitamin D,25 Hydroxy 29.6 ng/mL
[2024-05-13 18:23] LABS: Free T3 2.6 pg/mL (2.18-3.98); T4 Free Direct 1.17 ng/dL (0.76-1.46); Thyroid Stim Hormone (TSH) 0.709 uIU/mL (0.358-3.740)
== END | disposition home or self-care (01) ==
LOC: MTLAB 14:29
PROVIDERS: PCP Nurse Practitioner Family; Referring Provider Family Medicine; Visit Provider Family Medicine
DX: E55.9 Vitamin D deficiency, unspecified (principal); E53.8 Deficiency of other specified B group vitamins; F33.40 Major depressive disorder, recurrent, in remission, unspecified
CPT/HCPCS: 36415; 82306; 82607; 84439; 84443; 84481

== ENCOUNTER → 2024-07-12 | Outpatient (CLI) | payer MEDICARE, OTHER, SELFPAY ==
[2024-07-12 10:23] LABS: Absolute Neutrophil Count 11.2 X10^3/uL (2.0-7.7); Basophil# 0.03 X10^3/uL; Basophil% 0.2 % (0-1); Hematocrit 40.2 % (37-47); Hemoglobin 13.5 g/dL (12.0-15.0); Mean Corp Hgb Conc 33.6 g/dL (32-36); Mean Corpuscular Hgb 31.3 pg (27.0-32.0); Mean Corpuscular Volume 93.3 fL (81-99); Mean Platelet Vol. 9.9 fl (6.2-12.0); Monocyte# 0.57 X10^3/uL; Monocyte% 4.4 % (0-10); NRBC Flagged by Analyzer 0 % (0-5); Neutrophil # 11.23 X10^3/uL (2.7-7.7); Neutrophil % 87.8 % (47-70); Platelet Count 233 K/mm3 (150-450); RBC Distribution Width CV 12.5 % (11.6-14.6); RBC Distribution Width SD 43.4 fl (35.1-43.9); Red Blood Count 4.31 M/mm3 (4.2-5.4); White Blood Count 12.8 K/mm3 (4.4-11.0)
[2024-07-12 11:14] LABS: ALB/GLOB Ratio 1.6 RATIO (0.9-2.4); AST(SGOT) 27 U/L (<=31); Alanine Aminotransfer ALT/SGPT 20 U/L (<=34); Albumin, Serum 4.2 g/dL (3.4-4.8); Alkaline Phosphatase 66 U/L (35-104); Anion Gap 12 (5-15); BUN 21 mg/dL (4-19); BUN/Creat Ratio 24.8 RATIO (10-20); Calcium 9.7 mg/dL (7.6-11.0); Carbon Dioxide 19.4 mmol/L (22.0-29.0); Chloride 105 mmol/L (96-108); Cholesterol 168 mg/dL (<=200); Creatinine, Serum 0.84 mg/dL (0.70-1.20); EST Glomerular Filtration Rate 68 (>60); Globulin 2.6 g/dL (2.2-4.2); Glucose 131 mg/dL (70-99); High Density Lipoprotein 61 mg/dL; Low Density Lipoprotein Calc. 94 mg/dL; Potassium 4.8 mmol/L (3.3-5.1); Protein, Total 6.7 g/dL (5.9-8.4); Sodium Level 136 mmol/L (133-145); Total Bilirubin 0.31 mg/dL (0.00-1.30); Triglycerides 70 mg/dL; Very Low Density Lipoprotein 14 mg/dL (5-40); Vitamin B12 976 pg/mL (180-914); Vitamin D,25 Hydroxy 60.8 ng/mL (30-100); cholesterol:hdl ratio screen 2.78
== END | disposition home or self-care (01) ==
LOC: MTLAB 09:17
PROVIDERS: PCP Nurse Practitioner Family; Referring Provider Family Medicine; Visit Provider Family Medicine
DX: I25.10 Atherosclerotic heart disease of native coronary artery without angina pectoris (principal); I10 Essential (primary) hypertension; E53.8 Deficiency of other specified B group vitamins; E55.9 Vitamin D deficiency, unspecified
CPT/HCPCS: 36415; 80053; 80061; 82306; 82607; 85025

== ENCOUNTER → 2024-08-05 | Outpatient (CLI) | payer MEDICARE, OTHER, SELFPAY ==
[2024-08-05 15:28] LABS: Absolute Lymphocyte Count 0.73 X10^3/uL (0.83-4.51); Absolute Neutrophil Count 3.4 X10^3/uL (2.0-7.7); Basophil# 0.05 X10^3/uL; Eosinophil# 0.35 X10^3/uL; Eosinophils% 6.7 % (0-5); Hematocrit 40.8 % (37-47); Lymphocyte # 0.73 X10^3/ul (0.83-4.51); Mean Corp Hgb Conc 31.9 g/dL (32-36); Mean Corpuscular Hgb 30.8 pg (27.0-32.0); Mean Corpuscular Volume 96.7 fL (81-99); Mean Platelet Vol. 10.2 fl (6.2-12.0); Monocyte# 0.64 X10^3/uL; Monocyte% 12.3 % (0-10); NRBC Flagged by Analyzer 0 % (0-5); Neutrophil % 65.4 % (47-70); Platelet Count 198 K/mm3 (150-450); RBC Distribution Width CV 13.4 % (11.6-14.6); RBC Distribution Width SD 48.2 fl (35.1-43.9); Red Blood Count 4.22 M/mm3 (4.2-5.4); White Blood Count 5.2 K/mm3 (4.4-11.0)
[2024-08-06 00:22] LABS: ALB/GLOB Ratio 1.4 RATIO (0.9-2.4); AST(SGOT) 23 U/L (<=31); Alanine Aminotransfer ALT/SGPT 12 U/L (<=34); Albumin, Serum 3.9 g/dL (3.4-4.8); Alkaline Phosphatase 58 U/L (35-104); Anion Gap 13 (5-15); BUN 28 mg/dL (4-19); BUN/Creat Ratio 21.6 RATIO (10-20); Calcium,Total 9.7 mg/dL (7.6-11.0); Carbon Dioxide 21.1 mmol/L (21.0-32.0); Chloride 105 mmol/L (98-108); Creatinine, Serum 1.28 mg/dL (0.70-1.20); EST Glomerular Filtration Rate 41 (>60); Globulin 2.8 g/dL (2.2-4.2); Glucose 90 mg/dL (70-99); Protein, Total 6.7 g/dL (5.9-8.4); Sodium Level 140 mmol/L (133-145); Total Bilirubin 0.29 mg/dL (0.00-1.30)
== END | disposition home or self-care (01) ==
LOC: BFHLAB 12:03
PROVIDERS: PCP Family Medicine; Visit Provider Family Medicine
DX: K92.1 Melena (principal); R10.9 Unspecified abdominal pain
CPT/HCPCS: 36415; 80053; 85025; 86140

== ENCOUNTER 2024-08-08 15:48 | Emergency (ER) | payer MEDICARE, OTHER, SELFPAY ==
[2024-08-08 15:49] VITALS: BP 126/91; PULSE 91; RESP 16; TEMP 36.8; O2SAT 98; BMI 26.4
--- NOTE | 2024-08-08 16:19 | ED.VIS.GI ---
HPI HPI - GI History of Present Illness Chief Complaint: GI Bleed Detail of Chief Complaint: Rectal bleeding last several days. Informant: patient Nausea/Vomiting/Emesis GI Symptom: Negative for Nausea or Vomiting Diarrhea/Melena/Hematochezia GI Symptom: Positive for Hematochezia; Negative for Diarrhea or Melena Onset: Days Severity: Mild Associated Symptoms Associated Symptoms: Negative for Dysuria, Frequency or Hematuria Narrative Narrative: 84-year-old female history of prior DVT and kidney stones. Recent URI currently being treated for bacterial bronchitis with an antibiotic and oral steroids. Said that she started having URI symptoms last Monday and then started having small clots with her bowel movements in the toilet and bright red blood when she wiped on several different days. No heavy bleeding. No hematemesis. No coffee-ground material. She is on no blood thinners. Saw her primary care physician earlier this week Dr. Lux patient states previously had a benign polyp s. Had negative COVID, RSV and influenza. Resected by the [facility] this past May. 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/2020) Atherosclerotic heart disease of [place] coronary artery without angina pectoris Essential hypertension Neck pain Knee pain, bilateral Osteoarthritis Dislocation of left ankle joint Chronic back pain Hyperlipidemia Home Medications ?Medication ?Instructions ?Recorded ?Last Taken ?Type isosorbide mononitrate 60 mg 60 mg PO DAILY chest pain 07/09/16 04/12/23 History tablet,extended release 24 hr amlodipine 10 mg tablet 10 mg PO DAILY blood pressure 12/10/16 04/12/23 History simvastatin 20 mg tablet 20 mg PO QHS cholesterol 12/10/16 04/11/23 History zinc gluconate 50 mg tablet 50 mg PO DAILY Health maintenence 03/31/21 04/12/23 History omeprazole 20 mg capsule,delayed 20 mg PO BID gerd 06/22/21 04/12/23 History release baclofen 10 mg tablet 10 mg PO BID PRN PRN Muscle Spasm 04/12/23 Unknown History metoprolol succinate 50 mg See Rx Instructions .Route .COMPLEX 04/12/23 Unknown History tablet,extended release 24 hr niacinamide 500 mg tablet 500 mg PO DAILY 04/12/23 Unknown History furosemide 40 mg tablet 40 mg PO DAILY swelling #30 tabs 04/13/23 Unknown Rx potassium chloride 20 mEq 20 meq PO DAILY #30 tabs 04/13/23 Unknown Rx tablet,extended release benazepril 40 mg tablet 20 mg PO DAILY blood pressure 08/31/23 Unknown History calcium carbonate (Calcium 500) 500 mg PO DAILY Supplement 08/31/23 Unknown History hydrocodone 7.5 mg-acetaminophen 1 tab PO Q6H PRN 08/31/23 Unknown History 325 mg tablet Allergy/AdvReac Type Severity Reaction Status Date / Time No Known Allergies Allergy Verified 08/31/23 10:07 Family History Grandmother Breast cancer Surgical History History of esophagogastroduodenoscopy (EGD) (02/11/22) 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 Bright red blood per rectum. Constitutional Constitutional ED: Denies chills or fever(s) ENT ENT ED: Denies ear pain Cardiovascular Cardiovascular: Denies chest pain Respiratory/Chest Respiratory/Chest: Reports cough Gastrointestinal Gastrointestinal: Denies abdominal pain, constipation, diarrhea, melena, nausea or vomiting Genitourinary Genitourinary ED: Denies dysuria or hematuria Integumentary Denies abscess Neurologic Neurologic: Denies headache(s) Psychiatric Psychiatric: Denies anxiety Endocrine Endocrinology: Denies polydipsia Hematologic/Lymphatic Hematologic/Lymphatic: Denies easy bleeding, easy bruising or lymphadenopathy Allergic/Immunologic Allergic/Immunologic ED: Denies mouth swelling, tongue swelling or urticaria EXAM Physical Exam Narrative Exam Narrative: 84-year-old female in no acute distress. Sitting upright in her bed. Vital signs are stable afebrile. Pulse ox 98% on room air no hypoxia. Her neighbor sitting in bedside. H EENT exam pupils round reactive light. Extra motions intact. Moist mucous membranes. Neck nontender no lymphadenopathy. Lungs dry cough. Few scattered wheezes. No rales or rhonchi. Equal symmetric. Heart regular rhythm rate about 90 no murmur. Chest wall ribs nontender. Abdomen soft nontender. Moving all 4 extremities. Nontender no edema. Normal strength. Back nontender. Neurologically she is awake alert. Rectal exam no stool. No gross blood. She has 2 small hemorrhoids externally but they are not bleeding. There is no gross blood. Hemorrhoids are nontender. Nonthrombosed. Const Vital Signs: 08/08/24 15:49 08/08/24 16:28 08/08/24 17:48 Temperature 98.3 F Temperature Source Oral Pulse Rate 91 70 Respiratory Rate 16 16 18 Respiratory Pattern Normal Blood Pressure 126/91 H 128/78 H Blood Pressure Mean 102 94 Pulse Ox 98 95 Oxygen Delivery Method Room Air Positive well nourished and well developed; Negative for cachectic, contractures or unkempt General Appearance ED: well developed and NAD; Negative for unkempt, cachectic, contractures or pallor Nutritional Appearance: Negative for cachectic HEENT Reports moist mucous membranes normocephalic and atraumatic; Negative for trauma or tenderness Eyes PERRL and EOMs intact bilaterally General Eye ED: Negative for pale conjunctiva or scleral icterus Neck no lymphadenopathy, supple and no JVD General: Negative for tenderness Lymph Lymphatic: Negative for other Resp normal respiratory effort and No clear to auscultation bilaterally Resp Narrative: Few scattered wheezes. Dry cough. Effort and Inspection: Negative for respiratory distress Auscultation: wheezes; Negative for rales or rhonchi Cardio regular rate, regular rhythm, S1 normal heart sound, S2 normal heart sound and no murmurs Rate: Negative for bradycardia or tachycardic Rhythm: Negative for abnormal rhythm GI non-tender, non-distended and no masses GI Narrative: Rectal exam. She has small external hemorrhoids. Nontender. Nonthrombosed. Nonbleeding. No blood. Rectal no mass. No stool. No blood. No melena. Nontender. Inspection: Negative for abdominal distention Auscultation: normoactive bowel sounds Palpation: soft; Negative for tender, guarding, hernia, mass, pulsatile mass or rebound tenderness present Back/Spine no CVA tenderness General Back: Negative for CVA tenderness Cervical Spine: Negative for cervical spine tenderness Thoracic Spine / Upper Back: Negative for thoracic spinal tenderness Lumbar Spine / Lower Back: Negative for lumbar spinal tenderness Coccyx: Negative for other Extremity full ROM General Extremety ED: Negative for edema, tenderness or other findings General Extremity: Negative for edema or other findings Neuro CN's II-XII intact bilaterally and moves all extremities Sensorium / Orientation: alert, oriented to person, oriented to place and oriented to time; Negative for orientation impaired, confused or lethargic Motor Exam: strength 5/5 throughout Psych mental status grossly normal and thought process normal Appearance: Negative for unkempt Attitude: No agitated Mood & Affect: Negative for depressed, anxious or tearful Skin no wounds General Skin Exam: Negative for jaundice or pallor Lesions: no lesions Rashes: no rashes Trauma: Negative for abrasion Nails: Negative for discolored MDM MDM MDM Narrative Medical decision making narrative: 84-year-old female URI symptoms. Currently on antibiotic and steroids. Chest x-ray being obtained. To the bright red blood per rectum screening labs to be obtained a CBC and chemistry. I do not think she needs to be typed and screened by history it is not but not much bleeding. There is no obvious source. She does have external hemorrhoids but there not bleeding or tender. There is no blood on rectal exam. Nor any black stool. Repeat exam patient is doing well at 7:50 PM. I explained to her she has a stable lower GI bleed. It may be from an internal hemorrhoid or diverticulosis versus other etiologies. She stated she had a bowel movement here and had no further bleeding at this time. Her blood counts are stable. She does not need to be admitted. She can follow-up with her primary care physician and get outpatient endoscopy if this does not resolve. She has had a recent endoscopy done in May. Patient be discharged home. Hemorrhoidal cream. Warm sitz bath's. Follow-up with her doctor. History & Record Review Discussion w/independent historian: Patient Additional record(s) reviewed:: Prior inpatient record, Prior outpatient record, Prior ED visit and Prior labs Lab Data Attestation: I reviewed the patient's lab results. Lab results narrative: CBC shows a white count of 7. H&H 13 and 39. Platelets 240. Electrolytes show a gap of 15. BUN and creatinine are 31 and 1.1. Glucose 150. Labs are consistent with prior. Her blood counts have not significantly changed. Labs: Laboratory Results - last 24 hr 08/08/24 16:29 WBC 7.2 RBC 4.24 Hgb 13.2 Hct 39.5 MCV 93.2 MCH 31.1 MCHC 33.4 RDW Std Deviation 45.1 H RDW Coeff of [place] 13.2 Plt Count 240 MPV 9.5 Immature Gran % (Auto) 0.700 Neut % (Auto) 85.0 H Lymph % (Auto) 10.9 L [place] % (Auto) 3.1 Eos % (Auto) 0.0 Baso % (Auto) 0.3 Absolute Neuts (auto) 6.1 Absolute Lymphs (auto) 0.78 L Nucleated RBC % 0 Sodium 140 Potassium 4.8 Chloride 109 H Carbon Dioxide 15.9 L Anion Gap 15 BUN 31 H Creatinine 1.16 Estim Creat Clear Calc 31.18 L Est GFR (MDRD) Non-Af 46 L BUN/Creatinine Ratio 26.6 H Glucose 150 H Calcium 9.3 Radiography Chest X-Ray - ED: 2 View, Read by ED Physician, Read by Radiologist, Normal, Heart, Lungs, Mediastinum, Bony Structures, No Acute Disease and Chronic Changes Diagnostic Testing: Clinical Impression(s) from Imaging Studies Chest X-Ray 08/08/24 16:45 IMPRESSION: NO ACUTE FINDINGS Reading Location: [facility] Chest x-ray, 2 views, interpreted both by myself and the radiologist. AP and lateral. Shows chronic changes no acute process. Normal cardiac silhouette. Lung gibson are unremarkable. Discharge Plan Triage Chief Complaint: GI Bleed ED Provider: Leif Lewis Dx/Rx/DC Orders Clinical Impression: Acute lower gastrointestinal bleeding Instructions: ED Lower GI Bleeding (Stable) Prescriptions: No Action calcium carbonate [Calcium 500] 500 mg calcium (1,250 mg) tablet 500 mg PO DAILY zinc gluconate 50 mg tablet 50 mg PO DAILY omeprazole 20 mg capsule,delayed release(DR/EC) 20 mg PO BID hydrocodone-acetaminophen 7.5-325 mg tablet 1 tab PO Q6H PRN isosorbide mononitrate 60 MG tablet extended release 24 hr 60 mg PO DAILY amlodipine 10 MG tablet 10 mg PO DAILY Patient Comments: simvastatin 20 MG tablet 20 mg PO QHS benazepril 40 mg tablet 20 mg PO DAILY Patient Comments: baclofen 10 mg Tablet 10 mg PO BID PRN PRN (Reason: Muscle Spasm) metoprolol succinate 50 mg tablet extended release 24 hr See Rx Instructions .ROUTE .COMPLEX Rx Instructions: pt takes 50mg po q HS (unable to get this added into computer except under complex gibson niacinamide 500 mg tablet 500 mg PO DAILY potassium chloride 20 mEq tablet extended release 20 meq PO DAILY Qty: 30 0RF furosemide 40 mg tablet 40 mg PO DAILY Qty: 30 2RF Primary Care Provider: Stephanie Partida Referrals: Stephanie Partida DO [Primary Care Provider] - 3-5 Days if not improving Activity Restrictions/Additional Instructions: You have a stable lower GI bleed. Uncertain the cause it may be internal hemorrhoids or possibly diverticulosis versus other causes like a polyp. If this continues she will need another colonoscopy. Follow-up with your doctor. Obviously if he is get heavier bleeding or feeling lightheaded or start passing larger clots you need to return to the emergency department. Your chest x-ray today was normal. Your blood counts were stable and or similar to where they have been in the past. There was no significant loss of blood. Print Language: Italian Disposition Disposition: Home, Self Care
[2024-08-08] MEDS: Ipratropium/Albuterol Sulfate 3 ML AMPUL.NEB INHALATION (16:26)
[2024-08-08 16:28] VITALS: RESP 16
[2024-08-08 16:39] LABS: Absolute Lymphocyte Count 0.78 X10^3/uL (0.83-4.51); Absolute Neutrophil Count 6.1 X10^3/uL (2.0-7.7); Basophil# 0.02 X10^3/uL; Basophil% 0.3 % (0-1); Hematocrit 39.5 % (37-47); Hemoglobin 13.2 g/dL (12.0-15.0); Lymphocyte # 0.78 X10^3/ul (0.83-4.51); Lymphocyte % 10.9 % (19-41); Mean Corp Hgb Conc 33.4 g/dL (32-36); Mean Corpuscular Hgb 31.1 pg (27.0-32.0); Mean Corpuscular Volume 93.2 fL (81-99); Mean Platelet Vol. 9.5 fl (6.2-12.0); Monocyte# 0.22 X10^3/uL; Monocyte% 3.1 % (0-10); NRBC Flagged by Analyzer 0 % (0-5); Platelet Count 240 K/mm3 (150-450); RBC Distribution Width CV 13.2 % (11.6-14.6); RBC Distribution Width SD 45.1 fl (35.1-43.9); Red Blood Count 4.24 M/mm3 (4.2-5.4); White Blood Count 7.2 K/mm3 (4.4-11.0)
--- NOTE | 2024-08-08 16:45 | RAD_ITS ---
PROCEDURE: CHEST PA AND LATERAL 08/08/2024 REASON FOR EXAM: 84-year-old female, cough, GI bleed. TECHNIQUE: Single view chest with supine and upright views of the abdomen. COMPARISON: Chest radiograph 04/12/2023. FINDINGS: Hardware: None. Surgical clip overlying the right lower neck. Tiny radiopaque marker within the left breast, likely from prior breast biopsy. Heart: The heart size is normal. Lungs: No focal consolidation, pleural effusion or pneumothorax. Bones: There are degenerative changes of the spine. RAD/Chest PA and Lateral IMPRESSION: NO ACUTE FINDINGS Reading Location: [id number]
[2024-08-08 17:48] VITALS: BP 128/78; PULSE 70; RESP 18; O2SAT 95
[2024-08-08 18:42] LABS: BUN 31 mg/dL (4-19); BUN/Creat Ratio 26.6 RATIO (10-20); Calcium,Total 9.3 mg/dL (7.6-11.0); Chloride 109 mmol/L (98-108); Creatinine, Serum 1.16 mg/dL (0.70-1.20); EST Glomerular Filtration Rate 46 (>60); Estimated Creatinine Clearance 31.18 ml/min (50-250); Glucose 150 mg/dL (70-99); Potassium 4.8 mmol/L (3.3-5.1); Sodium Level 140 mmol/L (133-145)
[2024-08-08 18:50] LABS: Anion Gap 15 (5-15); Carbon Dioxide 15.9 mmol/L (21.0-32.0)
[2024-08-08 20:07] VITALS: BP 155/81; PULSE 78; RESP 18; TEMP 36.6; O2SAT 98
== END 2024-08-08 20:08 | disposition home or self-care (01) ==
PROVIDERS: Emergency Provider Emergency Medicine; PCP Family Medicine; Referring Provider Emergency Medicine; Visit Provider Emergency Medicine
DX: K92.2 Gastrointestinal hemorrhage, unspecified (principal); J44.9 Chronic obstructive pulmonary disease, unspecified; I10 Essential (primary) hypertension; I25.10 Atherosclerotic heart disease of native coronary artery without angina pectoris; K64.4 Residual hemorrhoidal skin tags; Z87.891 Personal history of nicotine dependence; E78.5 Hyperlipidemia, unspecified; Z86.718 Personal history of other venous thrombosis and embolism; Z87.442 Personal history of urinary calculi; K21.9 Gastro-esophageal reflux disease without esophagitis; Z95.5 Presence of coronary angioplasty implant and graft; R05.9 Cough, unspecified
CPT/HCPCS: 71046; 80048; 85025; 94640; 99283

== ENCOUNTER → 2024-11-14 | Outpatient (CLI) | payer MEDICARE, OTHER, SELFPAY | END | disposition home or self-care (01) | LOC: OPBI 12:03 | PROVIDERS: PCP Family Medicine; Referring Provider Family Medicine; Visit Provider Family Medicine | DX: Z12.31 Encounter for screening mammogram for malignant neoplasm of breast (principal) | CPT/HCPCS: 77063; 77067 ==

== ENCOUNTER 2024-12-15 09:24 | Emergency (ER) | payer MEDICARE, OTHER, SELFPAY ==
[2024-12-15 09:25] VITALS: BP 123/59; PULSE 61; RESP 18; TEMP 36.7; O2SAT 98
[2024-12-15 09:33] VITALS: BMI 27.4
--- NOTE | 2024-12-15 10:20 | RAD_ITS ---
PROCEDURE: ANKLE MIN 3 VIEWS 12/15/2024 REASON FOR EXAM: PAIN, NO INJURY TECHNIQUE: ANKLE MIN 3 VIEWS COMPARISON: None FINDINGS: Bones: Surgical hardware in the distal fibula free of complication. No demonstrated fracture or suspicious osseous lesion, small calcaneal spurs are noted Joints: Narrowing of the ankle mortise without abnormal widening of the tibiotalar joint space. Soft tissues: Unremarkable, no foreign body Other: RAD/Ankle min 3 Views IMPRESSION: Age consistent degenerative and postsurgical changes, no acute findings Calcaneal spurs Reading Location: [id number]
--- NOTE | 2024-12-15 10:21 | EX.ED.DYSGE1 ---
HPI History of Present Illness Chief Complaint: Lower Extremity Injury Narrative Narrative: Patient is a 84-year-old female with a past medical history of arthritis, JULIO, GERD, hypertension, gout who presented to the emergency department chief complaint of right ankle pain. Patient states that her pain started yesterday. Patient denies any injuries states that she tried to take her hydrocodone that she takes for her arthritis and this did not help her pain therefore she came here for further evaluation management. [facility] Medical History Bronchitis Left leg DVT Left renal atrophy Wears glasses Gout Arthritis Sleep apnea Hemorrhoids Rectal prolapse Chronic obstructive pulmonary disease Edema Hypokalemia Muscle spasm Gastroesophageal reflux disease Hypomagnesemia Debility Cancer Former smoker Abnormal mammogram of left breast Secondary pulmonary arterial hypertension Renal calculi Deep vein thrombosis of left lower extremity (04/2020) Atherosclerotic heart disease of [place] coronary artery without angina pectoris Essential hypertension Neck pain Knee pain, bilateral Osteoarthritis Dislocation of left ankle joint Chronic back pain Hyperlipidemia Home Medications ?Medication ?Instructions ?Recorded ?Last Taken ?Type isosorbide mononitrate 60 mg 60 mg PO DAILY chest pain 07/09/16 04/12/23 History tablet,extended release 24 hr amlodipine 10 mg tablet 10 mg PO DAILY blood pressure 12/10/16 04/12/23 History simvastatin 20 mg tablet 20 mg PO QHS cholesterol 12/10/16 04/11/23 History zinc gluconate 50 mg tablet 50 mg PO DAILY [facility] 03/31/21 04/12/23 History omeprazole 20 mg capsule,delayed 20 mg PO BID gerd 06/22/21 04/12/23 History release baclofen 10 mg tablet 10 mg PO BID PRN PRN Muscle Spasm 04/12/23 Unknown History metoprolol succinate 50 mg See Rx Instructions .Route .COMPLEX 04/12/23 Unknown History tablet,extended release 24 hr niacinamide 500 mg tablet 500 mg PO DAILY 04/12/23 Unknown History furosemide 40 mg tablet 40 mg PO DAILY swelling #30 tabs 04/13/23 Unknown Rx potassium chloride 20 mEq 20 meq PO DAILY #30 tabs 04/13/23 Unknown Rx tablet,extended release benazepril 40 mg tablet 20 mg PO DAILY blood pressure 08/31/23 Unknown History calcium carbonate (Calcium 500) 500 mg PO DAILY Supplement 08/31/23 Unknown History hydrocodone 7.5 mg-acetaminophen 1 tab PO Q6H PRN pain 08/31/23 Unknown History 325 mg tablet cephalexin 250 mg capsule 250 mg PO ONCE 10/22/24 Unknown History cholecalciferol (vitamin D3) 125 125 mcg PO QDAY 10/22/24 Unknown History mcg (5,000 unit) capsule mecobalamin (vitamin B12) 1,000 1,000 mcg PO QDAY 10/22/24 Unknown History mcg chewable tablet bupropion HCl 100 mg tablet,12 hr 100 mg PO DAILY 12/15/24 Unknown History sustained-release colchicine 0.6 mg tablet 0.6 mg PO DAILY PRN gout 12/15/24 Unknown History Allergy/AdvReac Type Severity Reaction Status Date / Time No Known Allergies Allergy Verified 12/15/24 09:25 Family History Grandmother Breast cancer Surgical History History of esophagogastroduodenoscopy (EGD) (02/11/22) 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) History of tonsillectomy and adenoidectomy History of wisdom tooth extraction History of coronary artery stent placement H/O parathyroidectomy (2011) History of open reduction and internal fixation (ORIF) procedure (03/2020) History of coronary artery stent placement (09/09/03) History of herniorrhaphy History of ankle surgery Social History household members: none [facility] current occupational status: retired pets and animals: Yes (dog) Smoking Status: Former smoker alcohol intake: current caffeine: Yes ROS ROS ED ROS Narrative Constitutional: Denies any fevers, chills Neurological: Denies any numbness, wheeze, tingling Musculoskeletal: Complains of right ankle pain as noted above Skin: Denies any rashes or lesions EXAM Physical Exam Narrative Exam Narrative: General: Patient lying in bed rest comfortably did not appear to be in acute distress Head: Atraumatic, normocephalic Eyes: PERRL bilaterally, EOMI by, no conjunctival injection noted Neck: Soft, supple, trachea midline Cardiovascular: Regular rate and rhythm Musculoskeletal: Patient has full range of motion of her right ankle joint with minimal pain no concern for septic joint no short arc syndrome Extremities: DP pulses +2/4 in the right lower extremity, +4/5 strength noted in the bilateral upper and lower extremities Neurological: Patient is following commands knew that she was at [facility] year is 2024, Skin: Warm, dry, intact, no rashes or lesions noted Const Vital Signs: 12/15/24 09:25 Temperature 98.1 F Temperature Source Oral Pulse Rate 61 Respiratory Rate 18 Blood Pressure 123/59 H Blood Pressure Mean 80 Pulse Ox 98 Oxygen Delivery Method Room Air MDM MDM MDM Narrative Medical decision making narrative: Patient is a 84-year-old female who presented to the emergency department chief complaint of right ankle pain. On the differential diagnosis includes but not limited to musculoskeletal strain, ankle sprain, gout flare, septic joint although have very low suspicion for this based on clinical exam. Patient be given IM Toradol and once the workup is obtained and reviewed she will be reevaluated. Patient's x-ray of her ankle was reviewed, some by radiology showed age consistent degenerative and postsurgical changes no acute findings. Calcaneal spurs. I discussed results with the patient she would like to go home this point time. She is vies to rotate Tylenol and ibuprofen [id number] for pain control. She is advised to ice, elevate and bear weight as tolerated. I offered her a removable brace as well as crutches and she states that she does not need either of these. She is advised to return with any other concerns otherwise she should follow-up with her doctor in the outpatient setting. She is agreeable this plan all course concerns answered she is discharged home in stable condition. Radiography Diagnostic Testing: Clinical Impression(s) from Imaging Studies Ankle X-Ray 12/15/24 10:20 IMPRESSION: Age consistent degenerative and postsurgical changes, no acute findings Calcaneal spurs Reading Location: [id number] Discharge Plan Triage Chief Complaint: Lower Extremity Injury ED Provider: Joel Hinson Dx/Rx/DC Orders Clinical Impression: Ankle pain, right, Essential hypertension, Hx of gout Prescriptions: No Action calcium carbonate [Calcium 500] 500 mg calcium (1,250 mg) tablet 500 mg PO DAILY zinc gluconate 50 mg tablet 50 mg PO DAILY omeprazole 20 mg capsule,delayed release(DR/EC) 20 mg PO BID hydrocodone-acetaminophen 7.5-325 mg tablet 1 tab PO Q6H PRN (Reason: pain) cephalexin 250 mg capsule 250 mg PO ONCE mecobalamin (vitamin B12) 1,000 mcg tablet,chewable 1,000 mcg PO QDAY cholecalciferol (vitamin D3) 125 mcg (5,000 unit) capsule 125 mcg PO QDAY isosorbide mononitrate 60 MG tablet extended release 24 hr 60 mg PO DAILY amlodipine 10 MG tablet 10 mg PO DAILY Patient Comments: simvastatin 20 MG tablet 20 mg PO QHS benazepril 40 mg tablet 20 mg PO DAILY Patient Comments: baclofen 10 mg Tablet 10 mg PO BID PRN PRN (Reason: Muscle Spasm) metoprolol succinate 50 mg tablet extended release 24 hr See Rx Instructions .ROUTE .COMPLEX Rx Instructions: pt takes 50mg po q HS (unable to get this added into computer except under complex gibson niacinamide 500 mg tablet 500 mg PO DAILY potassium chloride 20 mEq tablet extended release 20 meq PO DAILY Qty: 30 0RF furosemide 40 mg tablet 40 mg PO DAILY Qty: 30 2RF bupropion HCl 100 mg tablet sustained-release 12 hr 100 mg PO DAILY colchicine 0.6 mg tablet 0.6 mg PO DAILY PRN (Reason: gout) Primary Care Provider: Stephanie Partida Referrals: Stephanie Partida DO [Primary Care Provider] - Activity Restrictions/Additional Instructions: Your x-ray did not show any acute findings today. Rotate Tylenol and ibuprofen [id number] when you do this you can take something every 3 hours for pain. Max dose Tylenol in 24 hours 4000 mg max dose of ibuprofen in 24 hours 3200 mg. Ice, elevate, follow-up your doctor in the outpatient setting and return with worsening symptoms or any other concerns Print Language: Slovak Disposition Disposition: Home, Self Care
[2024-12-15] MEDS: Ketorolac 30 MG/ML Syringe IM (10:47)
[2024-12-15 11:24] VITALS: BP 142/78; PULSE 64; RESP 18; O2SAT 97
--- OUTSIDE RECORDS SUMMARY | 2024-12-15 11:33 | XMS RPT_ITS | CCD ---
Author Organization [facility]ini[facility] Care Team Providers Care [place] Polisher Operator Name Role Phone Dr. Stephanie Partida Primary Care Provider [phone] Dr. Stephanie Partida Referring Provider Dr. Champ Pineda Attending Provider Dr. Stephanie Partida Primary Care Provider Dr. Stephanie Partida Referring Provider Dr. Champ Pineda Attending Provider [phone] CIERA Mary Attending Provider [phone] Dr. Mike Walker Emergency Provider Dr. Sean Mcmullen Admit Provider Dr. Sean Mcmullen Other Provider TAMMY Mackay Attending Provider Unavail able Dr. Jonathan Gavin Attending Provider Dr. Jonathan Gavin Other Provider Friend, Dr. Curran Attending Provider Dr. Iglesia [place] Chi Admit Provider Dr. Iglesia [place] Chi Other Provider Friend, Dr. Curran Attending Provider Dr. Iglesia [place] Chi Referring Provider Dr. Stephanie Partida Primary Care Provider [phone] Dr. Saad Moreland Attending Provider Dr. Stephanie Partida Primary Care Provider Dr. Saad Moreland Attending Provider [phone] Prebish DIRECTOR BANKING, DIRECTOR BANKING-C Stephanie Referring Provider Dr. Stephanie Partida Referring Provider [phone] Dr. Champ Pineda Attending Provider [phone] Jonathan Hammer Attending Provider [phone] Helga, Dr. Brown Primary Care Provider Dr. Saad Moreland Attending Provider Helga, Dr. Brown Primary Care Provider [phone] Stephanie Partida Referring Provider [phone] Helga, Dr. Brown Primary Care Provider Dr. Saad Moreland Attending Provider [phone] Moses Bueno Referring Provider Helga, Dr. Brown Primary Care Provider [phone] Dr. Saad Moreland Attending Provider [phone] Dr. Moses Bueno Referring Provider Helga, Dr. Brown Referring Provider [phone] Rachelle VANG, CIERA Brown Attending Provider HUGH Gonzales-C Noemí Primary Care Provider [phone] Champ Pineda Attending Provider [phone] Kirill Johansen Emergency Provider Dr. Nella Gomes Admit Provider Dr. Nella Gomes Attending Provider Eliseo, Dr. Nella Cassidy Other Provider Dr. Stephanie Partida Primary Care Provider Dr. Saad Moreland Attending Provider Dr. Kirill Johansen Referring Provider Dr. Pavan Raymond Primary Care Provider [phone] Dr. Jonathan Hammer Attending Provider [phone] Christian, DIRECTOR BANKING-C Noemí Primary Care Provider Dr. Saad Moreland Attending Provider Haily, Dr. Roy Referring Provider Dr. Champ Pineda Attending Provider [phone] Haily, Dr. Roy Emergency Provider Eliseo, Dr. Nella Cassidy Admit Provider Korrubens, Dr. Nella Cassidy Attending Provider Korrubens, Dr. Nella Cassidy Other Provider Dr. Pavan Raymond Primary Care Provider Dr. Pavan Raymond Referring Provider [phone] Jonathan Hammer Attending Provider [phone] Heath DIRECTOR BANKING, DIRECTOR BANKING-C [place] Attending Provider Stephanie Partida DO Primary Care Provider Christian DIRECTOR BANKING-C, [place] Primary Care Provider Christian DIRECTOR BANKING-C, Noemí Attending Provider [phone] Christian DIRECTOR BANKING-C, Noemí Referring Provider Kimberly LEA, Dr. Long Monterroso Attending Provider Dr. Stephanie Partida DO Attending Provider [phone] Stephanie Partida DO Referring Provider Christian DIRECTOR BANKING-C, Noemí Primary Care Provider Dr. Stephanie Partida DO Primary Care Provider Dr. Leif Lewis MD Referring Provider Joshua LEA, Dr. Yadav Emergency Provider Christian DIRECTOR BANKING-C, [place] Primary Care Provider Dr. Stephanie Partida DO Attending Provider Dr. Stephanie Partida DO Referring Provider Dr. Leif Lewis MD Attending Provider [phone] Dr. Pavan Raymond DO Referring Provider Heath REESE-C[place]ifton Attending Provider VIRI CAMPOS Attending Unavailable MALYS, STEPHANIE A Referring Unavailable MALYS, STEPHANIE A Primary Care Unavailable MALYS, STEPHANIE A Primary Care Unavailable JERRI LEMON Referring Unavailable VIRI CAMPOS Attending Unavailable MALYS, STEPHANIE A Primary Care Unavailable NEISHA, Radha Referring Unavailable MALACHI JIMENEZ Attending Unavailabl e MALYS, STEPHANIE A Primary Care Unavailable VIRI CAMPOS Attending Unavailable Malys , Dr. Brown Attending Provider [phone] Dr. Stephanie Partida DO Referring Provider [phone] Malys, Stephanie Referring Unavailable Malys, Stephanie Primary Care Unavailable Malys, Stephanie Attending Unavailable Malys, Stephanie Attending Unavailable Malys, Stephanie Primary Care Unavailable Christian, Noemí Primary Care Unavailable Malys, Stephanie Attending Unavailable Malys, Stephanie Referring Unavailable Christian, Noemí Primary Care Unavailable Malys, Stephanie Attending Unavailable Malys, Stephanie Referring Unavailable Christian, Noemí Primary Care Unavailable Christian, Noemí Attending Unavailable Christian, Noemí Referring Unavailable Christian, Noemí Primary Care Unavailable Malys, Stephanie Attending Unavailable Malys, Stephanie Referring Unavailable Lewis, Leif Attending Unavailable Lewis, Leif Referring Unavailable Malys, Stephanie Primary Care Unavailable Christian, Noemí Primary Care Unavailable Christian, Noemí Attending Unavailable Christian, Noemí Referring Unavailable [place] Joe NP Attending Unavailable Malys, Stephanie Primary Care Unavailable Pavan Raymond Referring Unavailable Saad Moreland Attending Unavailable Christian, Noemí Primary Care Unavailable Christian, Noemí Referring Unavailable Medications Current Medications Medication Drug Class(es) Dates Sig (Normalized) Sig (Original) acetaminophen 325 mg / HYDROcodone bitartrate 7.5 mg oral tablet (20 sources) Opioid Agonist Start: 08-31-2023 Hydrocodone-Acetam inophen 7.5-325 mg tablet Active 1 {tbl} PO EVERY 6 HOURS as needed 0 August 31, 2023 12:00am Start: 08-31-2023 take 1 tablet by zain th every six hours Hydrocodone-Acetaminophen Active 1 TABLE T PO EVERY 6 HOURS August 31, 2023 12:00am Start: 02-13-2021 End: 02-22-2022 Hydrocodone-Acetaminophen 5- 325 mg tablet Discontinued 1 - 2 {tbl} PO TWICE A DAY as needed for Pain February 13, 2021 12:00am February 22, 2022 7:16pm Start: 02-13-2021 End: 02-22-2022 take 1 tablet by mouth twice daily Hydrocodone-Acetaminophen Discontinued 1 - 2 TABLET PO TWICE A DAY February 13, 2021 12:00am February 22, 2022 7:16pm Start: 08-04-2017 End: 04-28-2020 Hydrocodone-Acetaminophen 1 TABLET tablet Discontinued 1 {tbl} PO EVERY 6 HOURS NEEDED as needed for Pain August 04, 2017 6:10pm April 28, 2020 8:27pm Start: 08-04-2017 End: 04-28-2020 take 1 tablet by mouth every six hours as needed Hydrocodone-Acetaminophen Discontinued 1 TABLET PO EVERY 6 HOURS NEEDED August 04, 2017 6:10pm April 28, 2020 8:27pm Start: 12-10-2016 End: 08-04-2017 Hydrocodone-Acetaminophen 1 TABLET tablet Discontinued 1 {tbl} PO EVERY 4 HOURS NEEDED as needed for Pain 14 0 December 10, 2016 12:00am August 04, 2017 6:10pm Start: 12-10-2016 End: 08-04-2017 take 1 tablet by mouth every four hours as needed Hydrocodone-Acetaminophen Discontinued 1 TABLET PO EVERY 4 HOURS NEEDED 14 December 10, 2016 12:00am August 04, 2017 6:10pm take 1 tablet by zain th every six hours as needed HYDROcodone-acetaminophen 2.5-325 mg tab Take 1 tablet by mouth every 6 hours as needed for pain. Active amLODIPine 10 mg oral tablet (20 sources) Dihydropyridine Calcium Channel Mis Start: 07-25-2016 take 1 tablet by mouth once daily Amlodipine 10 MG tablet Active 10 mg PO DAILY December 10, 2016 12:00am blood pressure amylase 67897 unt / lipase 6000 unt / protease [id number] unt delayed release oral capsule (1 source) Start: 02-22-2022 take [id number] capsules by mouth three times daily at mealtime Lipase-Protease- Amylase (Creon) 6,000-19,000 -30,000 unit Capsule,Delayed Release(Dr/Ec) Active 3 CAP PO 3 TIMES DAILY WITH MEALS 270 February 22, 2022 12:00am baclofen 10 mg oral tablet (20 sources) gamma-Aminobutyric Acid-ergic Agonist Start: 04-12-2023 take 1 tablet by mouth twice daily as needed for muscle spasms Baclofen 10 mg Tablet Active 10 mg PO TWICE DAILY NEEDED as needed for Muscle Spasm April 12, 2023 1:00am Start: 02-22-2022 End: 04-12-2023 take 1 tablet by mouth three times daily as needed for muscle spasms Baclofen 10 mg Tablet Discontinued 10 mg PO 3 TIMES DAILY NEEDED as needed for Muscle Spasm 0 0 February 22, 2022 12:00am April 12, 2023 1:41pm Start: 09-02-2014 End: 02-22-2022 take 5-10 mg by mouth twice daily as needed for muscle spasms Baclofen 10 mg tablet Discontinued 5 - 10 mg PO TWICE A DAY as needed for spasms December 28, 2021 11:15am February 22, 2022 7:15pm benazepril hydrochloride 40 mg oral tablet (20 sources) Angiotensin Converting Enzyme Inhibitor Start: 08-31-2023 Benazepril 40 mg tablet Active 20 mg PO DAILY August 31, 2023 10:12am blood pressure Start: 08-31-2023 take 20 mg by mouth once daily Benazepril Active 20 MG PO DAILY August 31, 2023 10:12am Start: 07-25-2016 End: 08-31-2023 take 1 tablet by mouth once daily Benazepril 40 MG tablet Discontinued 40 mg PO DAILY December 10, 2016 12:00am August 31, 2023 10:15am blood pressure calcium carbonate 1250 mg oral tablet (20 sources) Start: 08-31-2023 take 1 tablet by mouth once daily Calcium Carbonate (Calcium 500) 500 mg calcium (1,250 mg) tablet Active 500 mg PO DAILY August 31, 2023 10:13am Supplement Start: 08-25-2020 End: 08-31-2023 take 1 tablet by mouth twice daily Calcium Carbonate (Calcium 500) 500 mg calcium (1,250 mg) tablet Discontinued 500 mg PO TWICE A DAY August 25, 2020 12:00am August 31, 2023 10:15am Supplement Start: 08-25-2020 Calcium Carbon ate (Calcium 500) 500 mg calcium (1,250 mg) tablet Active 1200 MG PO TWICE A DAY August 24, 2020 11:00pm cephalexin 250 mg oral capsule (20 sources) Cephalosporin Antibacterial Start: 10-22-2024 take 1 capsule by mouth once Cephalexin 250 mg capsule Active 250 mg PO ONCE October 22, 2024 12:00am Start: 04-03-2023 End: 04-12-2023 take 1 capsule by mouth three times daily Cephalexin 500 mg capsule Discontinued 500 mg PO THREE TIMES A DAY 21 April 03, 2023 1:00am April 12, 2023 1:39pm Start: 01-14-2023 End: 04-12-2023 take 1 capsule by mouth every six hours Cephalexin 500 mg capsule Discontinued 500 mg PO EVERY 6 HOURS 39 January 14, 2023 12:00am April 12, 2023 1:39pm Start: 01-30-2022 End: 02-02-2022 take 1 capsule by mouth twice daily Cephalexin 500 mg capsule Discontinued 500 mg PO TWICE A DAY January 30, 2022 12:00am February 02, 2022 11:51am Urinary tract infection Urinary tract infection, site not specified take 1 tablet by zain th once daily Cephalexin 250 mg tab Take 250 mg by mouth once daily. Active cholecalciferol 0.125 mg oral capsule (7 sources) Vitamin D Start: 10-22-2024 take 1 capsule by mouth once daily Cholecalciferol (Vitamin D3) 125 mcg (5,000 unit) capsule Active 125 ug PO daily October 22, 2024 12:00am Start: 06-22-2021 take 25 ug by mouth twice daily Cholecalciferol (Vitamin D3) Active 25 MCG PO TWICE A DAY June 22, 2021 11:05am take 1 tablet by zain th once daily cholecalciferol (VITAMIN D-3) 5,000 unit tab Take 5,000 Units by mouth once daily. Active ciprofloxacin 500 mg oral tablet (3 sources) Quinolone Antimicrobial Start: 02-02-2022 take 500 mg by mouth every twelve hours Ciprofloxacin Hcl Active 500 MG PO Q12H February 02, 2022 12:00am colchicine 0.6 mg oral capsule (1 source) Start: 02-22-2022 take 0.6 mg by mouth once daily Colchicine Active 0.6 MG PO DAILY 7 February 22, 2022 12:00am furosemide 40 mg oral tablet (20 sources) Loop Diuretic Start: 04-12-2023 End: 04-13-2023 take 1 tablet by mouth once daily Furosemide 40 mg tablet Active 40 mg PO DAILY 30 April 13, 2023 12:49pm swelling Start: 02-22-2022 End: 04-12-2023 Furosemide 20 mg tablet Disc ontinued 20 mg PO .3xw August 11, 2022 11:07am April 12, 2023 2:06pm Check with primary doctor MWF Start: 04-13-2021 End: 02-22-2022 take 1 tablet by mouth once daily as needed Furosemide (Lasix) 40 mg tablet Discontinued 40 mg PO DAILY as needed for swelling February 09, 2022 9:20am February 22, 2022 7:16pm take 1 tablet by zain th twice daily furosemide (LASIX) 40 mg tablet Take 40 mg by mouth two times a day. Active hydrOXYzine hydrochloride 10 mg oral tablet (1 source) Antihistamine Start: 12-28-2021 take 10 mg by mouth at bedtime Hydroxyzine Hcl Active 10 MG PO AT BEDTIME December 28, 2021 12:00am 24 hr isosorbide mononitrate 60 mg extended release oral tablet (20 sources) Nitrate Vasodilator Start: 07-09-2016 take 1 tablet by mouth once daily, then take 1 tablet by mouth every twenty-four hours Isosorbide Mononitrate 60 MG tablet extended release 24 hr Active 60 mg PO DAILY July 09, 2016 1:00am chest pain magnesium oxide 500 mg oral tablet (20 sources) Start: 03-31-2021 take 500 mg by mouth once daily Magnesium Oxide Active 500 MG PO DAILY March 31, 2021 1:00am Start: 02-13-2021 End: 03-31-2021 take 1 tablet by mouth twice daily Magnesium Oxide 400 mg (241.3 mg magnesium) tablet Discontinued 400 mg PO TWICE A DAY February 13, 2021 12:00am March 31, 2021 4:47pm mecobalamin 1 mg chewable tablet (12 sources) Start: 10-22-2024 take 1 tablet by mouth once daily Mecobalamin (Vitamin B12) 1,000 mcg tablet,chewable Active 1000 ug PO daily October 22, 2024 12:00am mecobalamin (B12 ACTIVE ORAL) Take by mouth once daily. Active mecobalamin (B12 ACTIVE ORAL) Take by mouth once daily. 0 Active Menthol / Zinc Oxide (1 source) Start: 02-22-2022 Menthol-Zinc Oxide (Calmoseptine) 0.44-20.6 % Ointment Active 1 APPLIC TOPICAL TWICE A DAY 0 February 22, 2022 12:00am metoclopramide 5 mg oral tablet (1 source) Dopamine-2 Receptor Antagonist Start: 02-22-2022 take 5 mg by mouth at bedtime Metoclopramide Hcl Active 5 MG PO BEFORE MEALS AND AT BEDTIME 120 February 22, 2022 12:00am 24 hr metoprolol succinate 50 mg extended release oral tablet (20 sources) beta-Adrenergic Mis Start: 04-12-2023 take 1 tablet by mouth every hour at bedtime Metoprolol Succinate 50 mg tablet extended release 24 hr Active 0 .ROUTE .COMPLEX April 12, 2023 1:00am pt takes 50mg po q HS (unable to get this added into computer except under complex gibson Start: 08-22-2022 End: 04-12-2023 Metoprolol Succinate 50 mg t ablet extended release 24 hr Discontinued 0 .ROUTE .COMPLEX 180 3 August 22, 2022 9:29am April 12, 2023 2:18pm TAKE 1 TABLET TWICE A DAY Start: 08-11-2022 End: 08-22-2022 take 1 tablet by mouth once daily Metoprolol Succinate (Toprol Xl) 50 mg tablet extended release 24 hr Discontinued 50 mg PO DAILY August 11, 2022 11:07am August 22, 2022 9:29am BP Start: 06-22-2021 End: 08-11-2022 take 1 tablet by mouth twice daily Metoprolol Succinate (Toprol Xl) 50 mg tablet extended release 24 hr Discontinued 50 mg PO TWICE A DAY February 09, 2022 12:10pm August 11, 2022 11:09am BP Start: 03-31-2021 End: 06-22-2021 take 1 tablet by mouth once daily Metoprolol Succinate (Toprol Xl) 50 mg tablet extended release 24 hr Discontinued 50 mg PO DAILY 90 3 March 31, 2021 1:00am June 22, 2021 11:22am niacinamide 500 mg oral tablet (14 sources) Start: 04-12-2023 take 1 tablet by mouth once daily Niacinamide 500 mg tablet Active 500 mg PO DAILY April 12, 2023 1:00am omeprazole 20 mg delayed release oral capsule (20 sources) Proton Pump Inhibitor Start: 06-22-2021 take 1 capsule by mouth twice daily Omeprazole 20 mg capsule,delayed release(DR/EC) Active 20 mg PO TWICE A DAY June 22, 2021 1:00am gerd Start: 08-17-2020 take 1 capsule by mo [facility] once daily omeprazole (PRILOSEC) 20 mg capsule Take 1 capsule by mouth once daily. 30 capsule 2 08/17/2020 Active oxyCODONE hydrochloride 5 mg oral tablet (20 sources) Opioid Agonist Start: 02-22-2022 take 5 mg by mouth every four hours as needed Oxycodone Active 5 MG PO EVERY 4 HOURS NEEDED 18 3 February 22, 2022 Start: 04-28-2020 End: 05-04-2020 take 2 tablets by mouth every four hours as needed for pain Oxycodone 5 MG tablet Discontinued 10 mg PO EVERY 4 HOURS NEEDED as needed for Pain Score 6-10 36 3 0 April 28, 2020 April 30, 2020 1:00am May 04, 2020 1:02am Open fracture of left ankle Start: 04-28-2020 End: 05-04-2020 take 10 mg by mouth every four hours as needed Oxycodone Discontinued 10 MG PO EVERY 4 HOURS NEEDED 36 3 April 28, 2019May 04, 2020 1:02am polyethylene glycol 3350 222284 mg / potassium chloride 2970 mg / sodium bicarbonate 6740 mg / sodium chloride 5860 mg / sodium sulfate 07165 mg powder for oral solution (1 source) Osmotic Laxative Start: 02-08-2024 End: 02-08-2024 peg 3350-Electrolytes (GOLYTELY) 236-22.74-6.74 -5.86 gram suspension Indications: Polyp of colon, unspecified part of colon, unspecified type Take 4,000 mL by mouth one time only for 1 dose. Only drink clear liquids the ENTIRE DAY before your colonoscopy. Part 1 At 6:00 pm the evening before your colonoscopy: Drink an 8-ounce glass of bowel preparation every 10 minutes for a total of 8 glasses. You may continue to drink clear liquids until midnight. Part 2 Four and a half hours before your colonoscopy on the day of your procedure: Drink an 8-ounce glass of bowel preparation every 10 minutes for a total of 8 glasses. Fifteen minutes later, drink an 8-ounce glass of clear liquids every 15 minutes for a total of 2 glasses. You may continue to drink clear liquids up to three hours before your exam. 4000 mL 02/08/2024 02/08/2024 Active polysaccharide iron complex 150 mg oral capsule (1 source) Start: 02-22-2022 Polysaccharide Iron Complex (Ferrex 150) 150 mg iron Capsule Active 150 MG PO 0800 30 February 22, 2022 12:00am potassium chloride 20 meq extended release oral tablet (20 sources) Start: 04-13-2023 take 1 tablet by mouth once daily Potassium Chloride 20 mEq tablet extended release Active 20 meq PO DAILY April 13, 2023 1:00am Start: 02-04-2022 End: 08-11-2022 take 1 tablet by mouth once daily Potassium Chloride 20 mEq tablet extended release Discontinued 20 meq PO DAILY February 22, 2022 7:19pm August 11, 2022 11:08am Hypokalemia POTASSIUM-99 ORAL (10 sources) take 1 tablet by zain th once daily POTASSIUM-99 ORAL Take 1 tablet by mouth once daily. Active take 1 tablet by mouth once lee y POTASSIUM-99 ORAL Take 1 tablet by mouth once daily. 0 Active simvastatin 20 mg oral tablet (20 sources) HMG-CoA Reductase Inhibitor Start: 07-25-2016 take 1 tablet by mouth at bedtime Simvastatin 20 MG tablet Active 20 mg PO AT BEDTIME December 10, 2016 12:00am cholesterol Vit C-S.Iydpiq-Igzmca-Q rape Sd (Tart Garza) [phone] mg Capsule (2 sources) Start: 02-13-2021 Vit C-S.Garza-Celery- Grape Sd (Tart Garza) [id number] mg Capsule Active 1 CAP PO DAILY February 13, 2021 8:43am Start: 02-13-2021 Vit C-S.Garza -Celery-Grape Sd (Tart Garza) [id number] mg Capsule Active 1 CAP PO DAILY February 13, 2021 12:00am Zinc Acetate (10 sources) take 1 tablet by mouth once lee y ZINC ACETATE ORAL Take 1 tablet by mouth once daily. Active take 1 tablet by mouth once lee y ZINC ACETATE ORAL Take 1 tablet by mouth once daily. 0 Active zinc gluconate 50 mg oral tablet (20 sources) Start: 03-31-2021 take 1 tablet by mouth once daily Zinc Gluconate 50 mg tablet Active 50 mg PO DAILY March 31, 2021 1:00am Health maintenence Completed/Discontinued Medications Medication Drug Class(es) Dates Sig (Normalized) Sig (Original) acetaminophen 500 mg oral tablet (20 sources) Start: 02-22-2022 End: 08-31-2023 take 2 tablets by mouth every six hours as needed for pain Acetaminophen 500 mg Tablet Discontinued 1000 mg PO EVERY 6 HOURS NEEDED as needed for Pain Score 1-3 0 0 February 22, 2022 12:00am August 31, 2023 10:12am Start: 02-22-2022 End: 08-31-2023 take 1000 mg by mouth every six hours as needed Acetaminophen Discontinued 1000 MG PO EVERY 6 HOURS NEEDED 0 February 22, 2022 12:00am August 31, 2023 10:12am acetaminophen 325 mg / oxyCODONE hydrochloride 5 mg oral tablet (20 sources) Opioid Agonist Start: 04-12-2023 End: 08-31-2023 Oxycodone-Acetaminophen 5-32 5 mg tablet Discontinued 1 {tbl} PO TWICE DAILY NEEDED as needed for pain April 12, 2023 1:00am August 31, 2023 10:14am Start: 04-12-2023 End: 08-31-2023 take 1 tablet by mouth twice daily as needed Oxycodone-Acetaminophen Discontinued 1 TABLET PO TWICE DAILY NEEDED April 12, 2023 1:00am August 31, 2023 10:14am Start: 03-30-2022 End: 04-12-2023 Oxycodone-Acetaminophen 5-32 5 mg tablet Discontinued 1 {tbl} PO EVERY 6 HOURS as needed for pain 14 7 0 March 30, 2022 April 12, 2023 2:12pm 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) Start: 03-30-2022 End: 04-12-2023 take 1 tablet by mouth every six hours Oxycodone-Acetaminophen Discontinued 1 TABLET PO EVERY 6 HOURS 14 7 March 30, 2022 April 12, 2023 2:12pm [id number] actuat albuterol 0.09 mg/actuat metered dose inhaler (20 sources) beta2-Adrenergic Agonist Start: 02-04-2022 End: 08-11-2022 Albuterol Sulfate (Ventolin Hfa) 90 mcg/actuation Hfa Aerosol Inhaler Discontinued 2 NMA INHALATION EVERY 4 HOURS NEEDED as needed for SOB &/OR WHEEZING 0 0 February 22, 2022 12:00am August 11, 2022 11:05am Start: 02-04-2022 End: 08-11-2022 take 1 puff(s) by inhalation every four hours as needed Albuterol Sulfate (Ventolin Hfa) 90 mcg/actuation Hfa Aerosol Inhaler Discontinued 2 PUFF INHALATION EVERY 4 HOURS NEEDED 0 February 22, 2022 12:00am August 11, 2022 11:05am alendronic acid 70 mg oral tablet (20 sources) Bisphosphonate Start: 12-21-2020 End: 03-31-2021 take 1 tablet by mouth every week Alendronate 70 mg Tablet Discontinued 70 mg PO EVERY WEEK December 21, 2020 12:00am March 31, 2021 4:48pm apixaban 5 mg oral tablet (20 sources) Factor Xa Inhibitor Start: 04-13-2023 End: 08-31-2023 take 2 tablets by mouth twice daily, then take 1 tablet by mouth twice daily Apixaban (Eliquis Dvt-Pe Treat 30d Start) 5 mg (74 tabs) tablets,dose pack Discontinued 5 mg PO TWICE A DAY 74 2 April 13, 2023 1:00am August 31, 2023 9:58am Take 2 tabs (10mg) twice daily for 7 days, then continue with one tablet (5mg) twice daily Start: 04-28-2020 End: 08-25-2020 take 1 tablet by mouth twice daily Apixaban 5 MG tablet Discontinued 5 mg PO TWICE A DAY 60 0 April 28, 2020 1:00am August 25, 2020 1:42pm aspirin 81 mg delayed release oral tablet (20 sources) Platelet Aggregation Inhibitor, Nonsteroidal Anti-inflammatory Drug Start: 04-10-2020 End: 06-21-2024 take 1 tablet by mouth at bedtime Aspirin 81 MG tablet,delayed release (DR/EC) Discontinued 81 mg PO AT BEDTIME April 10, 2020 1:00am August 11, 2022 11:06am heart atenolol 25 mg oral tablet (20 sources) beta-Adrenergic Mis Start: 03-31-2021 End: 03-31-2021 take 1 tablet by mouth once daily Atenolol 25 mg tablet Discontinued 25 mg PO DAILY March 31, 2021 4:46pm March 31, 2021 5:02pm blood pressure Start: 07-09-2016 End: 08-01-2024 take 1 tablet by mouth twice daily Atenolol 25 MG tablet Discontinued 25 mg PO TWICE A DAY July 09, 2016 1:00am March 31, 2021 4:49pm blood pressure Benzocaine (1 source) Standardized Chemical Allergen Start: 11-21-2023 End: 11-21-2023 benzocaine 20% 1 [place] (TOPEX) calcium chloride 0.0014 meq/ml / potassium chloride 0.004 meq/ml / sodium chloride 0.103 meq/ml / sodium lactate 0.028 meq/ml injectable solution (1 source) Start: 11-21-2023 End: 11-21-2023 lactated ringers iv infusion celecoxib 200 mg oral capsule (20 sources) Nonsteroidal Anti-inflammatory Drug Start: 07-09-2020 End: 11-03-2023 take 1 capsule by mouth once daily Celecoxib (Celebrex) 200 mg capsule Discontinued 200 mg PO DAILY August 11, 2022 12:00am April 13, 2023 12:51pm cholecalciferol, vitamin D3, (D-3-5 ORAL) (1 source) End: 11-03-2023 cholecalciferol, vitamin D3, (D-3-5 ORAL) Take by mouth once daily. 0 11/03/2023 Discontinued diazePAM 2 mg oral tablet (20 sources) Benzodiazepine Start: 02-13-2021 End: 03-31-2021 take 1 tablet by mouth three times daily as needed for muscle spasms Diazepam (Valium) 2 mg tablet Discontinued 2 mg PO THREE TIMES A DAY as needed for muscle spasm 14 3 0 February 13, 2021 12:00am March 31, 2021 4:47pm diphenhydrAMINE (1 source) Histamine-1 Receptor Antagonist Start: 11-21-2023 End: 11-21-2023 diphenhydrAMINE 12.5-50 mg injection (BENADRYL) docusate sodium 100 mg oral capsule (20 sources) Start: 03-30-2022 End: 08-11-2022 take 1 capsule by mouth twice daily Docusate Sodium (Colace) 100 mg capsule Discontinued 100 mg PO TWICE A DAY March 30, 2022 1:00am August 11, 2022 11:06am 1 ml fentaNYL 0.05 mg/ml injection (1 source) Opioid Agonist Start: 11-21-2023 End: 11-21-2023 fentaNYL 50 mcg/mL 25-100 mcg injection (SUBLIMAZE) hydroCHLOROthiazide 25 mg oral tablet (20 sources) Thiazide Diuretic Start: 07-25-2016 End: 04-13-2021 take 1 tablet by mouth once daily Hydrochlorothiazide 25 MG tablet Discontinued 25 mg PO DAILY December 10, 2016 12:00am April 13, 2021 6:51pm diuretic meloxicam 15 mg oral tablet (20 sources) Nonsteroidal Anti-inflammatory Drug Start: 07-25-2016 End: 11-03-2023 take 1 tablet by mouth once daily Meloxicam 15 MG tablet Discontinued 15 mg PO DAILY April 10, 2020 1:00am March 31, 2021 4:46pm anti inflammatory 5 ml midazolam 1 mg/ml injection (1 source) Benzodiazepine Start: 11-21-2023 End: 11-21-2023 midazolam 1-5 mg injection (VERSED) nitrofurantoin, macrocrystals 25 mg / nitrofurantoin, monohydrate 75 mg oral capsule (13 sources) Nitrofuran Antibacterial Start: 04-13-2023 End: 08-31-2023 take 1 capsule by mouth twice daily at mealtime Nitrofurantoin Monohyd/M-Cryst 100 mg Capsule Discontinued 100 mg PO TWICE DAILY WITH MEALS 8 April 13, 2023 1:00am August 31, 2023 10:13am nystatin [id number] unt/ml topical cream (1 source) Polyene Antifungal Start: 08-13-2015 End: 11-03-2023 nystatin (MYCOSTATIN) cream Indications: Candidiasis, cutaneous Apply 1 application to affected area three times daily. Apply topically to affected area 2-3 times/day up to 14 days 30 g 1 08/13/2015 11/03/2023 Discontinued ondansetron 4 mg disintegrating oral tablet (20 sources) Serotonin-3 Receptor Antagonist Start: 08-06-2023 End: 08-31-2023 take 1 tablet by mouth every eight hours as needed for nausea Ondansetron 4 mg tablet,disintegrating Discontinued 4 mg PO EVERY 8 HOURS NEEDED as needed for Nausea 20 0 August 06, 2023 12:00am August 31, 2023 10:14am Start: 02-04-2022 End: 02-22-2022 take 2 tablets by mouth every eight hours as needed for nausea Ondansetron 4 mg tablet,disintegrating Discontinued 8 mg PO EVERY 8 HOURS NEEDED as needed for Nausea 20 0 February 04, 2022 12:00am February 22, 2022 7:16pm Start: 02-04-2022 End: 02-22-2022 take 8 mg by mouth every eight hours as needed Ondansetron Discontinued 8 MG PO EVERY 8 HOURS NEEDED February 04, 2022 12:00am February 22, 2022 7:16pm OTC PRODUCT (1 source) End: 11-03-2023 take 1 capsule by mouth twice daily as needed OTC PRODUCT Take 1 capsule by mouth two times a day as needed (vaginal bacteria infections). Patient can't remember name 0 11/03/2023 Discontinued (Erroneous entry) predniSONE 20 mg oral tablet (20 sources) Start: 06-30-2022 End: 08-11-2022 take 2 tablets by mouth once daily Prednisone 20 mg tablet Discontinued 40 mg PO DAILY 8 June 30, 2022 1:00am August 11, 2022 11:08am Start: 06-30-2022 End: 08-11-2022 take 40 mg by mouth once daily Prednisone Discontinued 40 MG PO DAILY June 30, 2022 1:00am August 11, 2022 11:08am sulfamethoxazole 400 mg / trimethoprim 80 mg oral tablet (14 sources) Dihydrofolate Reductase Inhibitor Antibacterial, Sulfonamide Antimicrobial Start: 04-12-2023 End: 04-13-2023 Sulfamethoxazole-Trimethopri m (Bactrim) 400-80 mg tablet Discontinued 1 {tbl} PO TWICE A DAY April 12, 2023 1:00am April 13, 2023 12:48pm vitamin b12 2.5 mg oral tablet (20 sources) Vitamin B12 Start: 03-31-2021 End: 12-28-2021 take 1 tablet by mouth once daily Cyanocobalamin (Vitamin B-12) 2,500 mcg tablet Discontinued 2500 ug PO DAILY March 31, 2021 1:00am December 28, 2021 11:15am Problems Active Problems Problem Classification Problem Date Documented Da te Episodic/Chronic Abdominal pain (20 sources) Right flank pain; Translations: [Unspecified abdominal pain] Onset: 2 01-14-2023 Episodic Acute bronchitis (20 sources) Acute bronchitis; Translations: [Acute bronchitis, unspecified] 02-12-2022 Episodic Anal and rectal conditions (20 sources) Rectal prolapse; Translations: [Rectal prolapse] Episodic Cardiac dysrhythmias (20 sources) Sinus tachycardia; Translations: [Tachycardia, unspecified] Episodic Chronic obstructive pulmonary disease and bronchiectasis (20 sources) Chronic obstructive lung disease; Translations: [Chronic obstructive pulmonary disease, unspecified] Chronic Chronic obstructive pulmonary disease and bronchiectasis (16 sources) Bronchitis; Translations: [Bronchitis, not specified as acute or chronic] 04-12-2023 Episodic Coronary atherosclerosis and other heart disease (20 sources) Preinfarction syndrome; Translations: [Unstable angina] Onset: 8 Chronic Deficiency and other anemia (20 sources) Anemia; Translations: [Anemia, unspecified] 02-17-2022 Episodic Deficiency and other anemia (1 source) Anemia, unspecified; Translations: [Anemia, unspecified] Episodic Diseases of white blood cells (20 sources) Leukocytosis; Translations: [Elevated white blood cell count, unspecified] 02-17-2022 Chronic Disorders of lipid metabolism (20 sources) Hyperlipidemia; Translations: [Hyperlipidemia, unspecified] Onset: 8 Chronic Esophageal disorders (20 sources) Gastroesophageal reflux disease; Translations: [Gastro-esophageal reflux disease without esophagitis] Chronic Essential hypertension (20 sources) Essential hypertension; Translations: [Essential (primary) hypertension] Onset: 8 Chronic Fever of unknown origin (20 sources) Fever; Translations: [Fever, unspecified] Episodic Fluid and electrolyte disorders (20 sources) Hypokalemia, excessive renal losses; Translations: [Hypokalemia] Episodic Fracture of lower limb (20 sources) Open fracture of ankle; Translations: [Other fracture of left lower leg, initial encounter for open fracture type I or II] Onset: 0 03-20-2021 Episodic Gout and other crystal arthropathies (20 sources) Chondrocalcinosis; Translations: [Other chondrocalcinosis, unspecified site] 06-30-2022 Chronic Hemorrhoids (20 sources) Hemorrhoids; Translations: [Unspecified hemorrhoids] Episodic Joint disorders and dislocations; trauma-related (20 sources) Dislocation of left ankle joint, initial encounter; Translations: [Dislocation of left ankle joint] 03-20-2021 Episodic Malaise and fatigue (20 sources) Asthenia; Translations: [Other malaise] Episodic Nausea and vomiting (20 sources) Nausea; Translations: [Nausea] Onset: Episodic Nephritis; nephrosis; renal sclerosis (20 sources) Atrophy of left kidney; Translations: [Atrophy of kidney (terminal)] 06-29-2022 Chronic Nutritional deficiencies (1 source) Vitamin D deficiency, unspecified; Translations: [Vitamin D deficiency, unspecified] Onset: 5 Chronic Osteoarthritis (20 sources) Osteoarthritis; Translations: [Unspecified osteoarthritis, unspecified site] 03-20-2021 Chronic Osteoporosis (10 sources) Osteoporosis; Translations: [Age-related osteoporosis without current pathological fracture] Onset: 8 09-17-2015 Chronic Other and unspecified benign neoplasm (18 sources) Fibroadenoma of breast; Translations: [Benign neoplasm of left breast] 08-30-2022 Episodic Other and unspecified benign neoplasm (9 sources) Benign neoplasm of left breast; Translations: [Benign neoplasm of breast] 08-30-2022 Episodic Other and unspecified benign neoplasm (2 sources) Benign neoplastic disease; Translations: [Benign neoplasm, unspecified site] 11-28-2023 Episodic Other and unspecified benign neoplasm (2 sources) Polyp of colon; Translations: [Polyp of colon] 02-08-2024 Episodic Other and unspecified benign neoplasm (2 sources) History of polyp of colon; Translations: [History of colonic polyps] 11-18-2024 Episodic Other circulatory disease (20 sources) Low blood pressure; Translations: [Hypotension, unspecified] 02-07-2022 Episodic Other circulatory disease (9 sources) Hypotension, unspecified; Translations: [Hypotension, unspecified] Episodic Other connective tissue disease (20 sources) Spasm; Translations: [Other muscle spasm] 06-29-2022 Episodic Other connective tissue disease (4 sources) Other muscle spasm; Translations: [Spasm of muscle] Episodic Other connective tissue disease (20 sources) Pain in left lower limb; Translations: [Pain in left leg] 12-18-2022 Episodic Other gastrointestinal disorders (9 sources) Diarrhea; Translations: [Diarrhea, unspecified] 08-06-2023 Episodic Other lower respiratory disease (20 sources) Dyspnea; Translations: [Dyspnea, unspecified] 02-07-2022 Episodic Other lower respiratory disease (14 sources) Hypoxia; Translations: [Hypoxemia] 04-12-2023 Episodic Other lower respiratory disease (7 sources) Dyspnea, unspecified; Translations: [Other respiratory abnormalities] 04-12-2023 Episodic Other lower respiratory disease (7 sources) Hypoxemia; Translations: [Hypoxemia] 04-12-2023 Episodic Other nervous system disorders (20 sources) Disorder of brain; Translations: [Other encephalopathy] 02-07-2022 Chronic Other nervous system disorders (9 sources) Other encephalopathy; Translations: [Other encephalopathy] Chronic Other non-traumatic joint disorders (20 sources) Pain in right knee; Translations: [Pain in both knees] 06-30-2022 Episodic Other nutritional; endocrine; and metabolic disorders (20 sources) Hypomagnesemia; Translations: [Hypomagnesemia] 06-29-2022 Chronic Other nutritional; endocrine; and metabolic disorders (4 sources) Hypomagnesemia; Translations: [Disorders of magnesium metabolism] Chronic Other nutritional; endocrine; and metabolic disorders (10 sources) Obese class I; Translations: [Obesity, unspecified] Onset: 0 04-08-2020 Chronic Other nutritional; endocrine; and metabolic disorders (20 sources) Loss of appetite; Translations: [Anorexia] 03-04-2022 Episodic Other nutritional; endocrine; and metabolic disorders (5 sources) Anorexia; Translations: [Anorexia] Onset: 5 Episodic Other nutritional; endocrine; and metabolic disorders (2 sources) Decrease in appetite; Translations: [Anorexia] 11-18-2024 Episodic Other screening for suspected conditions (not mental disorders or infectious disease) (20 sources) Mammography abnormal; Translations: [Other abnormal and inconclusive findings on diagnostic imaging of breast] Onset: 5 12-27-2021 Episodic Phlebitis; thrombophlebitis and thromboembolism (16 sources) Deep venous thrombosis of lower extremity; Translations: [Acute embolism and thrombosis of unspecified deep veins of left lower extremity] 04-12-2023 Episodic Pulmonary heart disease (20 sources) Pulmonary arterial hypertension; Translations: [Secondary pulmonary arterial hypertension] 02-07-2022 Chronic Residual codes; unclassified (20 sources) Edema; Translations: [Edema, unspecified] 06-29-2022 Episodic Residual codes; unclassified (4 sources) Edema, unspecified; Translations: [Edema] Episodic Septicemia (except in labor) (20 sources) Sepsis; Translations: [Sepsis, unspecified organism] Episodic Spondylosis; intervertebral disc disorders; other back problems (20 sources) Backache; Translations: [Dorsalgia, unspecified] Onset: 1 02-21-2021 Episodic Unclassified (1 source) Patient encounter status 11-18-2024 Unclassified (1 source) History of colonic polyps; Translations: [History of colonic polyps] Onset: 5 Urinary tract infections (20 sources) Urinary tract infectious disease; Translations: [Urinary tract infection, site not specified] Episodic Past or Other Problems Problem Classification Problem Date Documented Da te Episodic/Chronic Abdominal hernia (20 sources) Umbilical hernia; Translations: [Umbilical hernia without obstruction or gangrene] Onset: 2 02-03-2012 Episodic Conditions associated with dizziness or vertigo (1 source) Dizziness and giddiness; Translations: [Dizziness and giddiness] Onset: 4 Episodic Coronary atherosclerosis and other heart disease (6 sources) Presence of coronary angioplasty implant and graft; Translations: [Percutaneous transluminal coronary angioplasty status] Onset: 4 Episodic Deficiency and other anemia (1 source) Iron deficiency anemia, unspecified; Translations: [Iron deficiency anemia, unspecified] Onset: 4 Episodic Diabetes mellitus without complication (10 sources) Impaired fasting glycemia; Translations: [Impaired fasting glucose] Onset: 0 06-08-2009 Episodic Gastrointestinal hemorrhage (20 sources) Lower gastrointestinal hemorrhage; Translations: [Gastrointestinal hemorrhage, unspecified] Onset: 5 Episodic Other and unspecified benign neoplasm (1 source) Benign neoplasm, unspecified site; Translations: [Multiple adenomatous polyps] Onset: 5 Episodic Other and unspecified benign neoplasm (1 source) Polyp of colon; Translations: [Polyp of colon, unspecified part of colon, unspecified type] Onset: 5 Episodic Other connective tissue disease (1 source) Pain in left lower leg; Translations: [Pain in left lower leg] Onset: 4 Episodic Other skin disorders (11 sources) Ingrowing nail; Translations: [Ingrowing nail] Onset: 8 02-05-2008 Episodic Skin and subcutaneous tissue infections (10 sources) Cellulitis and abscess of toe; Translations: [Cellulitis of unspecified toe] Onset: 9 02-02-2009 Episodic Results Test Name Value Interpretation Reference Range Facility [facility] 11-18-2024 CNOV Office Visit (GENSWS ) GABRIELA RAMON ([id number]) 1940 F Date Time Provider Department 11/18/24 2:30 PM VIRI CAMPOS [facility] During your visit today, we recorded the following information about you: Temperature Pulse Respiration Blood pressure 98.8 degrees 84/minute 14/minute 110/64 Weight Height 64 kg 1.538 m Viri Campos APRN.JAVASCRIPT SOFTWARE ENGINEER 11/18/2024 3:51 PM Signed HISTORY AND PHYSICAL Gabriela Ramon : 1940 REFERRING PHYSICIAN: Stephanie Partida [address] [facility] [id number] CHIEF COMPLAINT: Patient presents with: Follow Up HPI: Gabriela is a 84 year old female referred for endoscopy. Gabriela notes due for repeat colonoscopy. Gabriela denies abdominal pain. Gabriela notes diarrhea. -for the last couple of months Gabriela denies constipation. Gabriela denies a change in bowel habits. Gabriela denies melena. Gabriela denies bright red blood per rectum. Gabriela denies hemorrhoids. Gabriela denies family history of colon issues. Gabriela denies heartburn. Gabriela denies dysphagia. Gabriela denies a history of ulcers/ peptic ulcer disease. Gabriela notes upper abdominal pain -worse in the mornings -been on omeprazole for years but not helping with the pain Gabriela notes decreased appetite and minimal weight loss -some nausea, denies vomiting Gabriela's medical history is significant for HTN, osteoporosis and obesity. She denies CP, SOB, dizziness, palpitations, syncope, edema, recent hospitalizations Gabriela has undergone prior endoscopy. Last colonoscopy was 05/[address] Hester at [facility]. Sedation: MAC Impression: - One 40 mm polyp in the cecum, removed with endoscopic submucosal dissection. Resected and retrieved. Clips (MR safe) were placed. - One 5 mm polyp in the proximal ascending colon, removed with a hot snare. Resected and retrieved. - Endoscopic submucosal dissection was performed. Resection and retrieval were complete FINAL DIAGNOSIS A. Ascending colon polyp, biopsy: - Tubular adenoma. B. Cecal polyp, endoscopic mucosal resection: - Tubular adenoma. - Lateral cauterized margins free of adenoma. - No evidence of invasive carcinoma. BARRETT/loki 06/12/2024 Current Outpatient Medications Medication Sig cholecalciferol (VITAMIN D-3) 5,000 unit tab Take 5,000 Units by mouth once daily. metoprolol succinate ER (TOPROL XL) 50 mg 24 hr tablet Take 50 mg by mouth once daily. ZINC ACETATE ORAL Take 1 tablet by mouth once daily. HYDROcodone-acetaminophen 2.5-325 mg tab Take 1 tablet by mouth every 6 hours as needed for pain. furosemide (LASIX) 40 mg tablet Take 40 mg by mouth two times a day. (Patient taking differently: Take 40 mg by mouth once daily.) Cephalexin 250 mg tab Take 250 mg by mouth once daily. POTASSIUM-99 ORAL Take 1 tablet by mouth once daily. omeprazole (PRILOSEC) 20 mg capsule Take 1 capsule by mouth once daily. mecobalamin (B12 ACTIVE ORAL) Take by mouth once daily. isosorbide mononitrate ER (IMDUR) 60 mg 24 hr tablet Take 1 tablet by mouth once daily. simvastatin (ZOCOR) 20 mg tablet Take 1 tablet by mouth daily at bedtime. hydroCHLOROthiazide (HYDRODIURIL, ESIDRIX) 25 mg tablet Take 1 tablet by mouth once daily. Benazepril HCl 40 mg tablet Take 1 tablet by mouth once daily. amLODIPine (NORVASC) 10 mg tablet Take 1 tablet by mouth once daily. baclofen (LIORESAL) 10 mg tablet Take 10 mg by mouth twice daily as needed (muscle spasms). TAKE 0.5-1 TABLET BID PRN FOR SPASMS No current facility-administered medications for this visit. ALLERGIES: Patient has no known allergies. PAST MEDICAL HISTORY Diagnosis Date Arthritis Cancer (HCC) skin Coronary atherosclerosis of unspecified type of vessel, [place] or graft Coronary artery disease Diverticulosis of colon (without mention of hemorrhage) Inguinal hernia Mixed hyperlipidemia Hyperlipidemia Osteoporosis, unspecified Osteoporosis PMH - PAST MEDICAL HISTORY OF 1945 Osteomyelitis Umbilical hernia Unspecified essential hypertension Essential hypertension Urinary calculus, unspecified Renal stones PAST SURGICAL HISTORY Procedure Laterality Date COLONOSCOPY 11/21/2023 COLONOSCOPY - DIAGNOSTIC 08/06/2020 COLONOSCOPY FLX DX W/COLLJ SPEC WHEN PFRMD 12/23/2008 Colonoscopy EGD 08/06/2020 EGD 11/21/2023 EYE SURGERY HX FRACTURE SURGERY Bilateral ankles HERNIA REPAIR HX LAPAROSCOPY SURG RPR INITIAL INGUINAL HERNIA 01/23/2012 NEUROPLASTY AND/TRANSPOS MEDIAN NRV CARPAL TUNNE 05/15/2005 Carpal tunnel decomp left NEUROPLASTY AND/TRANSPOS MEDIAN NRV CARPAL TUNNE 05/15/2006 Carpal tunnel decomp right ORTHOPEDIC SURGERY HX Left 04/07/2020 L Ankle Sx PAST SURGICAL HISTORY OF 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 Normal [facility] Breast imaging reportOrdered By: Alyssa Hernandez on 11-14-2024 Study report [facility] Imaging Services [address] [place] [address] SCRN MAMM (CAD)W/LUCIANA BARKSDALEAT MR#: [id number] Acct: [id number] Name: GABRIELA RAMON Rep #: [id number] : 1940 F 84 From: Tayler Hernandez MD PCP: Dr. Stephanie Partida DO Status: REG CLI Study:SCRN MAMM (CAD)W/LUCIANA BILAT Date of Exa m: 11/14/24 Exam# [id number] Ordering Dr: Marianela Partida sa, DO EXAM: SCRN MAMM (CAD)W/LUCIANA BILAT DATE: 11/14/2024 CLINICAL HISTORY: F, Age 84 y/o , SCREENING TECHNIQUE: SCRN MAMM (CAD)W/LUCIANA BILAT COMPARISON: Prior exam(s) dated 09/14/2023, 08/23/2022, 08/20/2021. FINDINGS: TISSUE DENSITY: There are scattered areas of fibroglandular density. Bilateral Breast Mammographic Findings: No significant masses, calcifications or other abnormalities are identified. BI/SCRN MAMM (CAD)W/LUCIANA BILAT IMPRESSION: There is no mammographic evidence of malignancy. OVERALL FINAL ASSESSMENT BI-RADS 1: NEGATIVE. RECOMMEND ANNUAL MAMMOGRAPHIC SCREENING. RECOMMENDATION: Routine annual follow-up in 1 Year A letter with findings and recommendations will be mailed to the patient. Reading Location: [facility] CC: Dr. Stephanie Partida DO ~ Esthetics Instructor: Signed [facility] SCRN MAMM (CAD)W/LUCIANA BILATo n 11-14-2024 SCRN MAMM (CAD)W/LUCIANA BILAT [facility] Imaging Services [address] [place] [address] [id number] SCRN MAMM (CAD)W/LUCIANA BILAT MR#: [id number] Acct: [id number] Name: GABRIELA RAMON Rep #: [id number] : 1940 F 84 From: Alyssa Hernandez MD PCP: Dr. Stephanie Partida DO Status: REG CLI Study: SCRN MAMM (CAD)W/LUCIANA BILAT Date of Exam: 08/06 Exam# [id number] Ordering Dr: Stephanie Partida DO EXAM: SCRN MAMM (CAD)W/LUCIANA BILAT DATE: 11/14/2024 CLINICAL HISTORY: F, Age 84 y/o , SCREENING TECHNIQUE: SCRN MAMM (CAD)W/LUCIANA BILAT COMPARISON: Prior exam(s) dated 09/14/2023, 08/23/2022, 08/20/2021. FINDINGS: TISSUE DENSITY: There are scattered areas of fibroglandular density. Bilateral Breast Mammographic Findings: No significant masses, calcifications or other abnormalities are identified. BI/SCRN MAMM (CAD)W/LUCIANA BILAT IMPRESSION: There is no mammographic evidence of malignancy. OVERALL FINAL ASSESSMENT BI-RADS 1: NEGATIVE. RECOMMEND ANNUAL MAMMOGRAPHIC SCREENING. RECOMMENDATION: Routine annual follow-up in 1 Year A letter with findings and recommendations will be mailed to the patient. Reading Location: [facility] CC: Dr. Stephanie Partida DO Esthetics Instructor: Signed Normal [facility] Cardiology Visit Reporton Cardiology Visit Report [facility] [address] [place] [address] OFFICE VISIT Date of Service: 10/22/24 MR#: [id number] Acct: [id number] Name: GABRIELA RAMON Rep #: [id number] : 1940 Provider: TAMMY gustafson Age/Sex: 84/F Location: [facility] Status: Signed HPI HPI History of Present Illness Details: Pleasant 84-year-old lady who presents to the office today for a cardiovascular follow up visit. She has a previous cardiac history including a drug-eluting stent placed to her coronary artery in 2004. She also has a history of hypertension hyperlipidemia and osteoarthritis. She has been noticing some chest discomfort and dyspnea when she goes on walks as well as palpitations. She complained to you about this and you prescribed a stress test which she performed quite credibly to a workload of 7 metabolic equivalents without any evidence of angina or ischemia. She had a previous stress test in July 2017 which also demonstrated no evidence of ischemia. She had previously been on amlodipine and atenolol and hydrochlorothiazide for her blood pressure. She had been complaining of some dyspnea and her atenolol was changed to Toprol. She has continued to complain of intermittent palpitations. She did present to the emergency room in April 2021 with palpitations with an EKG that demonstrated sinus tachycardia with a rate of 122 bpm. She had been started on methylprednisone at that time. Holter monitor in March 2021 demonstrated an average heart rate of 72 bpm. An echocardiogram had demonstrated an ejection fraction of 60%, stage I diastolic dysfunction and pulmonary systolic pressure of 50 mmHg. From a cardiac standpoint, the patient is doing well. She does acknowledge an occasional palpitation. She denies chest pain, pressure or heaviness. She denies SOB, Orthopnea, and PND. She does not have bleeding issues; no blood in urine, stool or nosebleeds. She denies any decrease in energy level, myalgias, or claudication. She does not have edema, or sudden weight gain. She does have occasional lightheadedness with quick positional changes. She denies dizziness, syncopal or near syncopal episodes, and headaches. 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: No Is patient in pain?: No Allergies No Known Allergies Allergy (Verified 10/22/24 11:10) Medications ???Medication ???Instructions ???Recorded ???Confirmed ???Type isosorbide mononitrate 60 mg 60 mg PO DAILY chest pain 07/09/16 10/22/24 History tablet,extended release 24 hr amlodipine 10 mg tablet 10 mg PO DAILY blood pressure 11/1310/22/24 History simvastatin 20 mg tablet 20 mg PO QHS cholesterol 12/10/16 10/22/24 History zinc gluconate 50 mg tablet 50 mg PO DAILY [facility] 03/31/21 10/22/24 History omeprazole 20 mg capsule,delayed 20 mg PO BID gerd 06/22/21 5 History release baclofen 10 mg tablet 10 mg PO BID PRN PRN Muscle Spasm 04/12/23 10/22/24 History metoprolol succinate 50 mg See Rx Instructions .Route .COMPLE X 04/12/23 10/22/24 History tablet,extended release 24 hr niacinamide 500 mg tablet 500 mg PO DAILY 04/12/23 10/22/24 History furosemide 40 mg tablet 40 mg PO DAILY swelling #30 tabs 1 06/13/22 10/22/24 Rx potassium chloride 20 mEq 20 meq PO DAILY #30 tabs 04/13/23 10/22/24 Rx tablet,extended release benazepril 40 mg tablet 20 mg PO DAILY blood pressure 08/1310/22/24 History calcium carbonate (Calcium 500) 500 mg PO DAILY Supplement 4 10/22/24 History hydrocodone 7.5 mg-acetaminophen 1 tab PO Q6H PRN 08/31/23 10/22/24 History 325 mg tablet cephalexin 250 mg capsule 250 mg PO ONCE 10/22/24 10/22/24 H istory cholecalciferol (vitamin D3) 125 125 mcg PO QDAY 10/22/24 10/22/24 History mcg (5,000 unit) capsule mecobalamin (vitamin B12) 1,000 1,000 mcg PO QDAY 10/22/24 5 History mcg chewable tablet Ejection fraction %: 65 Have you fallen in the past year?: No PFSH Medical History Bronchitis Left leg DVT Left renal atrophy Wears glasses Gout Arthritis Sleep apnea Hemorrhoids Rectal prolapse Chronic obstructive pulmonary disease Edema Hypokalemia Muscle spasm Gastroesophageal reflux disease Hypomagnesemia Debility Cancer Former smoker Abnormal mammogram of left breast Secondary pulmonary arterial hypertension Renal calculi Deep vein thrombosis of left lower extremity (04/2020) Atherosclero (more content not included)... Normal [facility] Absolute lymphocyte countOrd ered By: Leif Lewis on 08-08-2024 Lymphocytes Auto (Unsp spec) [#/Vol] 0.78 10*3/uL Low 0.83-4.51 [facility] Absolute neutrophil countOrd ered By: Leif Lewis on 08-08-2024 Neutrophils (Bld) [#/Vol] 6.1 10*3/uL 2.0-7.7 [facility] Anion gap in Serum or Plasma Ordered By: Leif Lewsi on 08-08-2024 Anion gap [Moles/Vol] 15 mmol/L 5- [facility] Automated lymphocyte count a s percentage of total leukocytesOrdered By: Leif Lewis on 08-08-2024 Lymphocytes/100 WBC Auto (Unsp spec) 10.9 % Low 19-41 [facility] BUN/creatinine ratioOrdered By: Leif Lewis on 08-08-2024 Urea nitrogen/Creatinine [Mass ratio] 26.6 mg/mg High 10-20 [facility] Basic Metabolic Profile (BMP )on 08-08-2024 CO2 [Moles/Vol] 15.9 mmol/L Low 21.0-32.0 [facility] Comment on above: Performed By: #### L 500.2500, L100.0100 ####[facility] [address] [place], [address] GAP 15 Normal - [facility] Comment on above: Performed By: #### L 500.2500, L100.0100 ####[facility] [address] [place], [address] Basophil percentageOrdered B y: Leif Lewis on 08-08-2024 Basophils/100 WBC (Bld) 0.3 % 0- [facility] CBC W/Diff, Automatedon 07-14 Absolute Lymph 0.78 X10 3/uL Low 0.83-4.51 [facility] Comment on above: Performed By: #### L 500.2500, L100.0100 ####[facility] [address] [place], [address] Absolute Neut 6.1 X10 3/uL Normal 2.0-7.7 [facility] Comment on above: Performed By: #### L 500.2500, L100.0100 ####[facility] [address] [place], [address] Basophils/100 WBC (Bld) 0.3 % Normal 0-1 [facility] Comment on above: Performed By: #### L 500.2500, L100.0100 ####[facility] [address] [place], [address] Eosinophils/100 WBC (Bld) 0.0 % Normal 0-5 [facility] Comment on above: Performed By: #### L 500.2500, L100.0100 ####[facility] [address] [place], [address] Erythrocyte distribution width (RBC) [Ratio] 13.2 % Normal 11.6-14.6 [facility] Comment on above: Performed By: #### L 500.2500, L100.0100 ####[facility] [address] [place], [address] Hematocrit (Bld) [Volume fraction] 39.5 % Normal 37-47 [facility] Comment on above: Performed By: #### L 500.2500, L100.0100 ####[facility] [address] [place], [address] Hemoglobin (Bld) [Mass/Vol] 13.2 g/dL Normal 12.0-15.0 [facility] Comment on above: Performed By: #### L 500.2500, L100.0100 ####[facility] [address] [place], [address] IG% 0.700 Normal 0.0-0.9 [facility] Comment on above: Result Comment: IG% - Immature Granulocytes (promyelocytes, myelocytes and metamyelocytes) > 1% indicates that a LEFT SHIFT is Present. Performed By: #### L 500.2500, L100.0100 ####[facility] [address] [place], [address] Lymphocytes/100 WBC (Bld) 10.9 % Low 19-41 [facility] Comment on above: Performed By: #### L 500.2500, L100.0100 ####[facility] [address] [place], [address] MCH (RBC) [Entitic mass] 31.1 pg Normal 27.0-32.0 [facility] Comment on above: Performed By: #### L 500.2500, L100.0100 ####[facility] [address] [place], [address] MCHC (RBC) [Mass/Vol] 33.4 g/dL Normal 32-36 [facility] Comment on above: Performed By: #### L 500.2500, L100.0100 ####[facility] [address] [place], [address] MCV (RBC) [Entitic vol] 93.2 fL Normal 81-99 [facility] Comment on above: Performed By: #### L 500.2500, L100.0100 ####[facility] [address] [place], [address] Monocytes/100 WBC (Bld) 3.1 % Normal 0-10 [facility] Comment on above: Performed By: #### L 500.2500, L100.0100 ####[facility] [address] [place], [address] Neutrophils/100 WBC (Bld) 85.0 % High 47-70 [facility] Comment on above: Performed By: #### L 500.2500, L100.0100 ####[facility] [address] [place], [address] Nucleated RBC (Bld) [#/Vol] 0 10*3/uL Normal 0-5 [facility] Comment on above: Performed By: #### L 500.2500, L100.0100 ####[facility] [address] [place], [address] Platelet mean volume (Bld) [Entitic vol] 9.5 fL Normal 6.2-12.0 [facility] Comment on above: Performed By: #### L 500.2500, L100.0100 ####[facility] [address] [place], [address] Platelets (Bld) [#/Vol] 240 10*3/uL Normal 150-450 [facility] Comment on above: Performed By: #### L 500.2500, L100.0100 ####[facility] [address] [place], [address] RBC (Bld) [#/Vol] 4.24 10*6/uL Normal 4.2-5.4 [facility] Comment on above: Performed By: #### L 500.2500, L100.0100 ####[facility] [address] [place], [address] RDW SD 45.1 fl High 35.1-43.9 [facility] Comment on above: Performed By: #### L 500.2500, L100.0100 ####[facility] [address] [place], [address] WBC (Bld) [#/Vol] 7.2 10*3/uL Normal 4.4-11.0 [facility] Comment on above: Performed By: #### L 500.2500, L100.0100 ####[facility] [address] [place], [address] Carbon dioxide, total [Moles /volume] in Central venous bloodOrdered By: Leif Lewis on 08-08-2024 CO2 [Moles/Vol] 15.9 mmol/L Low 21.0-32.0 [facility] Chest PA and Lateralon 08-08 Chest PA and Lateral [facility] [address] [place] [address] Chest PA and Lateral MR#: [id number] Acct: [id number] Name: GABRIELA RAMON KAROL Rep #: [id number] : 1940 F 84 From: Afia Wills nd, [place] PCP: Dr. Stephanie Partida DO Status: REG ER Study: Chest PA and Lateral Date of Exam: 08/08/24 Exam# [id number] Ordering Dr: Leif Lewis MD PROCEDURE: CHEST PA AND LATERAL 08/08/2024 REASON FOR EXAM: 84-year-old female, cough, GI bleed. TECHNIQUE: Single view chest with supine and upright views of the abdomen. COMPARISON: Chest radiograph 04/12/2023. FINDINGS: Hardware: None. Surgical clip overlying the right lower neck. Tiny radiopaque marker within the left breast, likely from prior breast biopsy. Heart: The heart size is normal. Lungs: No focal consolidation, pleural effusion or pneumothorax. Bones: There are degenerative changes of the spine. RAD/Chest PA and Lateral IMPRESSION: NO ACUTE FINDINGS Reading Location: [facility] CC: Dr. Leif Lewis MD; Dr. Stephanie Partida DO Esthetics Instructor: Signed Normal [facility] Chloride assayOrdered By: Eleazar Lewis on 08-08-2024 Chloride [Moles/Vol] 109 mmol/L High 98-108 [facility] Emergency Department Summary on 08-08-2024 Emergency Department Summary [facility] Medical Records Department [address] [place] [id number] Emergency Department Summary 08/08/24 MR#: [id number] Acct: [id number] Name: GABRIELA RAMON Rep #: [id number] : 1940 84 From: Leif Lewis MD PCP: Dr. Stephanie Partida DO Status:REG ER Location: ED HPI HPI - GI History of Present Illness Chief Complaint: GI Bleed Detail of Chief Complaint: Rectal bleeding last several days. Informant: patient Nausea/Vomiting/Emesis GI Symptom: Negative for Nausea or Vomiting Diarrhea/Melena/Hematochezi a GI Symptom: Positive for Hematochezia; Negative for Diarrhea or Melena Onset: Days Severity: Mild Associated Symptoms Associated Symptoms: Negative for Dysuria, Frequency or Hematuria Narrative Narrative: 84-year-old female history of prior DVT and kidney stones. Recent URI currently being treated for bacterial bronchitis with an antibiotic and oral steroids. Said that she started having URI symptoms last Monday and then started having small clots with her bowel movements in the toilet and bright red blood when she wiped on several different days. No heavy bleeding. No hematemesis. No coffee-ground material. She is on no blood thinners. Saw her primary care physician earlier this week Dr. Lux patient states previously had a benign polyp s. Had negative COVID, RSV and influenza. Resected by the [facility] this past May. Prior similar symptoms: No Recent Illness/Hospitalization: No PFSH PFS Medical History Bronchitis Left leg DVT Left renal atrophy Wears glasses Gout Arthritis Sleep apnea Hemorrhoids Rectal prolapse Chronic obstructive pulmonary disease Edema Hypokalemia Muscle spasm Gastroesophageal reflux disease Hypomagnesemia Debility Cancer Former smoker Abnormal mammogram of left breast Secondary pulmonary arterial hypertension Renal calculi Deep vein thrombosis of left lower extremity (04/2020) Atherosclerotic heart disease of [place] coronary artery without angina pectoris Essential hypertension Neck pain Knee pain, bilateral Osteoarthritis Dislocation of left ankle joint Chronic back pain Hyperlipidemia Home Medications ???Medication ???Instructions ???Recorded ???Last Taken ???Type isosorbide mononitrate 60 mg 60 mg PO DAILY chest pain 07/09/16 04/12/23 History tablet,extended release 24 hr amlodipine 10 mg tablet 10 mg PO DAILY blood pressure 11/1304/12/23 History simvastatin 20 mg tablet 20 mg PO QHS cholesterol 12/10/16 04/11/23 History zinc gluconate 50 mg tablet 50 mg PO DAILY Health maintenence 03/31/21 04/12/23 History omeprazole 20 mg capsule,delayed 20 mg PO BID gerd 06/22/21 3 History release baclofen 10 mg tablet 10 mg PO BID PRN PRN Muscle Spasm 04/12/23 Unknown History metoprolol succinate 50 mg See Rx Instructions .Route .COMPLE X 04/12/23 Unknown History tablet,extended release 24 hr niacinamide 500 mg tablet 500 mg PO DAILY 04/12/23 Unknown H istory furosemide 40 mg tablet 40 mg PO DAILY swelling #30 tabs 1 06/13/22 Unknown Rx potassium chloride 20 mEq 20 meq PO DAILY #30 tabs 04/13/23 Unknown Rx tablet,extended release benazepril 40 mg tablet 20 mg PO DAILY blood pressure 08/13 01/05 Unknown History calcium carbonate (Calcium 500) 500 mg PO DAILY Supplement 4 Unknown History hydrocodone 7.5 mg-acetaminophen 1 tab PO Q6H PRN 08/31/23 Unknown History 325 mg tablet Allergy/AdvReac Type Severity Reaction Status Date / Time No Known Allergies Allergy Verified 08/31/23 10:07 Family History Grandmother Breast cancer Surgical History History of esophagogastroduodenoscopy (EGD) (02/11/22) 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 Bright red blood per rectum. Constitutional Constitutional ED: Denies chills or fever(s) ENT ENT ED: Denies ear pain Cardiovascular Cardiovascular: Denies chest pain Respiratory/Chest Respiratory/Chest: Reports cough Gastrointestinal Gastrointestinal: Denies abdominal pain, constipation, diarrhea, melen (more content not included)... Normal [facility] Eosinophil percentageOrdered By: Leif Lewis on 08-08-2024 Eosinophils/100 WBC (Bld) 0.0 % 0-5 [facility] Erythrocyte distribution wid th ratioOrdered By: Leif Lewis on 08-08-2024 Erythrocyte distribution width (RBC) [Ratio] 13.2 % 11.6-14.6 [facility] Erythrocyte distribution wid th standard deviationOrdered By: Leif Lewis on 08-08-2024 Erythrocyte distribution width (RBC) [Entitic vol] 45.1 fL High 35.1-43.9 [facility] Erythrocyte distribution width (RBC) [Ratio] 45.1 fl High 35.1-43.9 [facility] Estimation of creatinine barb aranceOrdered By: Leif Lewis on 08-08-2024 Estimated Creatinine Clearance Calc 31.18 ml/min Low 50-250 [facility] GFR/1.73 sq M.predicted kayla g non-blacks MDRD (S/P/Bld) [Vol rate/Area]Ordered By: Leif Lewis on 08-08-2024 Estimated GFR (MDRD) Non-Af Amer 46 Low >60 [facility] Comment on above: mL/min/1.73m2 CKD-EP I Creatinine Equation (2020) Glomerular filtration rate ( GFR) estimation/1.73 sq m using serum, plasma, or whole bOrdered By: Leif Lewis on 08-08-2024 GFR/1.73 sq M.predicted among non-blacks MDRD (S/P/Bld) [Vol rate/Area] 46 mL/min/{1.73_m2} Low >60 [facility] Comment on above: mL/min/1.73m2 CKD-EP I Creatinine Equation (2020) Hematocrit Auto (Bld) [Volum e fraction]Ordered By: Leif Lewis on 08-08-2024 Hematocrit (Bld) [Volume fraction] 39.5 % 37-47 [facility] Hemoglobin measurementOrdere d By: Leif Lewis on 08-08-2024 Hemoglobin (Bld) [Mass/Vol] 13.2 g/dL 12.0-15.0 [facility] Immature granulocytes/100 WB C Auto (Bld)Ordered By: Leif Lewis on 08-08-2024 Immature granulocytes/100 WBC (Bld) 0.700 % 0.0-0.9 [facility] Comment on above: IG% - Immature Granu locytes (promyelocytes, myelocytes and metamyelocytes) > 1% indicates that a LEFT SHIFT is Present. Lymphocytes Auto (Unsp spec) [#/Vol]Ordered By: Leif Lewis on 08-08-2024 Lymphocytes (Bld) [#/Vol] 0.78 10*3/uL Low 0.83-4.51 [facility] Lymphocytes/100 WBC Auto (Un sp spec)Ordered By: Leif Lewis on 08-08-2024 Lymphocytes/100 WBC (Bld) 10.9 % Low 19-41 [facility] MCV (mean corpuscular volume ) determinationOrdered By: Leif Lewis on 08-08-2024 MCV (RBC) [Entitic vol] 93.2 fL 81-99 [facility] Mean corpuscular hemoglobin (MCH) determinationOrdered By: Leif Lewis on 08-08-2024 MCH (RBC) [Entitic mass] 31.1 pg 27.0-32.0 [facility] Mean corpuscular hemoglobin concentration (MCHC) determinationOrdered By: Leif Lewis on 08-08-2024 MCHC (RBC) [Mass/Vol] 33.4 g/dL 32-36 [facility] Mean platelet volume determi nationOrdered By: Leif Lewis on 08-08-2024 Platelet mean volume (Bld) [Entitic vol] 9.5 fL 6.2-12.0 [facility] Monocyte percentageOrdered B y: Leif Lewsi on 08-08-2024 Monocytes/100 WBC (Bld) 3.1 % 0-10 [facility] Neutrophil percentageOrdered By: Leif Lewis on 08-08-2024 Neutrophils/100 WBC (Bld) 85.0 % High 47-70 [facility] Nucleated red blood cell per centageOrdered By: Leif Lewis on 08-08-2024 Nucleated RBC/100 WBC (Bld) [Ratio] 0 % 0-5 [facility] Platelet countOrdered By: Eleazar Lewis on 08-08-2024 Platelets (Bld) [#/Vol] 240 10*3/uL 150-450 [facility] Potassium (Unsp spec) [Mass/ Vol]Ordered By: Leif Lewis on 08-08-2024 Potassium [Moles/Vol] 4.8 mmol/L 3.3-5.1 [facility] Potassium measurement (mass/ volume)Ordered By: Leif Lewis on 08-08-2024 Potassium (Unsp spec) [Mass/Vol] 4.8 mmol/L 3.3-5.1 [facility] RBC Auto (Bld) [#/Vol]Ordere d By: Leif Lewis on 08-08-2024 RBC (Bld) [#/Vol] 4.24 10*6/uL 4.2-5.4 [facility] Serum creatinine measurement (mass/volume)Ordered By: Leif Lewis on 08-08-2024 Creatinine [Mass/Vol] 1.16 mg/dL 0.70-1.20 [facility] Serum glucose measurement (m ass/volume)Ordered By: Leif Lewis on 08-08-2024 Glucose [Mass/Vol] 150 mg/dL High 70-99 [facility] Serum or plasma calcium kj urement (mass/volume)Ordered By: Leif Lewis on 08-08-2024 Calcium [Mass/Vol] 9.3 mg/dL 7.6-11.0 [facility] Serum or plasma urea nitroge n measurement (mass/volume)Ordered By: Leif Lewis on 08-08-2024 Urea nitrogen [Mass/Vol] 31 mg/dL High 4-19 [facility] Sodium levelOrdered By: Leif Lewis on 08-08-2024 Sodium [Moles/Vol] 140 mmol/L 133-145 [facility] White blood cell (WBC) count Ordered By: Leif Lewis on 08-08-2024 WBC (Bld) [#/Vol] 7.2 10*3/uL 4.4-11.0 [facility] CRPon 08-06-2024 C-REACTIVE PROT 13.80 mg/L High 0.0-3.0 [facility] Comment on above: Performed By: #### L 100.0100, L501.6710, L500.4050 #### [facility] [address] [place], [place], [id number] Comprehensive Metabolic Prof ilon 08-06-2024 Albumin [Mass/Vol] 3.9 g/dL Normal 3.4-4.8 [facility] Comment on above: Performed By: #### L 100.0100, L501.6710, L500.4050 #### [facility] [address] [place], [place], [id number] Albumin/Globulin [Mass ratio] 1.4 {ratio} Normal 0.9-2.4 [facility] Comment on above: Performed By: #### L 100.0100, L501.6710, L500.4050 #### [facility] [address] [place], [address] ALK PHOS 58 U/L Normal 35-104 [facility] Comment on above: Performed By: #### L 100.0100, L501.6710, L500.4050 #### [facility] [address] [place], [address] ALT [Catalytic activity/Vol] 12 U/L Normal <=34 [facility] Comment on above: Performed By: #### L 100.0100, L501.6710, L500.4050 #### [facility] [address] [place], [address] AST [Catalytic activity/Vol] 23 U/L Normal <=31 [facility] Comment on above: Performed By: #### L 100.0100, L501.6710, L500.4050 #### [facility] [address] [place], [address] Bilirubin [Mass/Vol] 0.29 mg/dL Normal 0.00-1.30 [facility] Comment on above: Performed By: #### L 100.0100, L501.6710, L500.4050 #### [facility] [address] [place], [address] BUN/CRE 21.6 RATIO High 10-20 [facility] Comment on above: Performed By: #### L 100.0100, L501.6710, L500.4050 #### [facility] [address] [place], [address] Calcium [Mass/Vol] 9.7 mg/dL Normal 7.6-11.0 [facility] Comment on above: Performed By: #### L 100.0100, L501.6710, L500.4050 #### [facility] [address] [place], [address] Chloride [Moles/Vol] 105 mmol/L Normal 98-108 [facility] Comment on above: Performed By: #### L 100.0100, L501.6710, L500.4050 #### [facility] [address] [place], [address] CO2 [Moles/Vol] 21.1 mmol/L Normal 21.0-32.0 [facility] Comment on above: Performed By: #### L 100.0100, L501.6710, L500.4050 #### [facility] [address] [place], [address] Creatinine [Mass/Vol] 1.28 mg/dL High 0.70-1.20 [facility] Comment on above: Performed By: #### L 100.0100, L501.6710, L500.4050 #### [facility] [address] [place], [address] GAP 13 Normal 5-15 [facility] Comment on above: Performed By: #### L 100.0100, L501.6710, L500.4050 #### [facility] [address] [place], [address] GFR/1.73 sq M.predicted among non-blacks MDRD (S/P/Bld) [Vol rate/Area] 41 mL/min/{1.73_m2} Low >60 [facility] Comment on above: Result Comment: mL/m in/1.73m2 CKD-EPI Creatinine Equation (2020) Performed By: #### L 100.0100, L501.6710, L500.4050 #### [facility] [address] [place], [address] Globulin (S) [Mass/Vol] 2.8 g/dL Normal 2.2-4.2 [facility] Comment on above: Performed By: #### L 100.0100, L501.6710, L500.4050 #### [facility] [address] [place], [address] Glucose [Mass/Vol] 90 mg/dL Normal 70-99 [facility] Comment on above: Performed By: #### L 100.0100, L501.6710, L500.4050 #### [facility] [address] [place], [address] Potassium [Moles/Vol] 4.0 mmol/L Normal 3.3-5.1 [facility] Comment on above: Performed By: #### L 100.0100, L501.6710, L500.4050 #### [facility] [address] [place], [address] Sodium [Moles/Vol] 140 mmol/L Normal 133-145 [facility] Comment on above: Performed By: #### L 100.0100, L501.6710, L500.4050 #### [facility] [address] [place], [address] T PROT 6.7 g/dL Normal 5.9-8.4 [facility] Comment on above: Performed By: #### L 100.0100, L501.6710, L500.4050 #### [facility] [address] [place], [address] Urea nitrogen [Mass/Vol] 28 mg/dL High 4-19 [facility] Comment on above: Performed By: #### L 100.0100, L501.6710, L500.4050 #### [facility] [address] [place], [address] Absolute lymphocyte countOrd ered By: Stephanie Partida on 08-05-2024 Lymphocytes Auto (Unsp spec) [#/Vol] 0.73 10*3/uL Low 0.83-4.51 [facility] Absolute neutrophil countOrd ered By: Stephanie Partida on 08-05-2024 Neutrophils (Bld) [#/Vol] 3.4 10*3/uL 2.0-7.7 [facility] Anion gap in Serum or Plasma Ordered By: Stephanie Partida on 08-05-2024 Anion gap [Moles/Vol] 13 mmol/L 5-15 [facility] Automated lymphocyte count a s percentage of total leukocytesOrdered By: Stephanie Partida on 08-05-2024 Lymphocytes/100 WBC Auto (Unsp spec) 14.0 % Low 19-41 [facility] BUN/creatinine ratioOrdered By: Stephanie Partida on 08-05-2024 Urea nitrogen/Creatinine [Mass ratio] 21.6 mg/mg High 10-20 [facility] Basophil percentageOrdered B y: Stephanie Partida on 08-05-2024 Basophils/100 WBC (Bld) 1.0 % 0-1 [facility] Bilirubin, totalOrdered By: Stephanie Partida on 08-05-2024 Bilirubin [Mass/Vol] 0.29 mg/dL 0.00-1.30 [facility] CBC W/Diff, Automatedon 07-14 Absolute Lymph 0.73 X10 3/uL Low 0.83-4.51 [facility] Comment on above: Performed By: #### L 100.0100, L501.6710, L500.4050 #### [facility] [address] [place], [address] Absolute Neut 3.4 X10 3/uL Normal 2.0-7.7 [facility] Comment on above: Performed By: #### L 100.0100, L501.6710, L500.4050 #### [facility] [address] [place], [address] Basophils/100 WBC (Bld) 1.0 % Normal 0-1 [facility] Comment on above: Performed By: #### L 100.0100, L501.6710, L500.4050 #### [facility] [address] [place], [address] Eosinophils/100 WBC (Bld) 6.7 % High 0-5 [facility] Comment on above: Performed By: #### L 100.0100, L501.6710, L500.4050 #### [facility] [address] [place], [address] Erythrocyte distribution width (RBC) [Ratio] 13.4 % Normal 11.6-14.6 [facility] Comment on above: Performed By: #### L 100.0100, L501.6710, L500.4050 #### [facility] [address] [place], [address] Hematocrit (Bld) [Volume fraction] 40.8 % Normal 37-47 [facility] Comment on above: Performed By: #### L 100.0100, L501.6710, L500.4050 #### [facility] [address] [place], [address] Hemoglobin (Bld) [Mass/Vol] 13.0 g/dL Normal 12.0-15.0 [facility] Comment on above: Performed By: #### L 100.0100, L501.6710, L500.4050 #### [facility] [address] [place], [address] IG% 0.600 Normal 0.0-0.9 [facility] Comment on above: Result Comment: IG% - Immature Granulocytes (promyelocytes, myelocytes and metamyelocytes) > 1% indicates that a LEFT SHIFT is Present. Performed By: #### L 100.0100, L501.6710, L500.4050 #### [facility] [address] [place], [address] Lymphocytes/100 WBC (Bld) 14.0 % Low 19-41 [facility] Comment on above: Performed By: #### L 100.0100, L501.6710, L500.4050 #### [facility] [address] [place], [address] MCH (RBC) [Entitic mass] 30.8 pg Normal 27.0-32.0 [facility] Comment on above: Performed By: #### L 100.0100, L501.6710, L500.4050 #### [facility] [address] [place], [address] MCHC (RBC) [Mass/Vol] 31.9 g/dL Low 32-36 [facility] Comment on above: Performed By: #### L 100.0100, L501.6710, L500.4050 #### [facility] [address] [place], [address] MCV (RBC) [Entitic vol] 96.7 fL Normal 81-99 [facility] Comment on above: Performed By: #### L 100.0100, L501.6710, L500.4050 #### [facility] [address] [place], [address] Monocytes/100 WBC (Bld) 12.3 % High 0-10 [facility] Comment on above: Performed By: #### L 100.0100, L501.6710, L500.4050 #### [facility] [address] [place], [address] Neutrophils/100 WBC (Bld) 65.4 % Normal 47-70 [facility] Comment on above: Performed By: #### L 100.0100, L501.6710, L500.4050 #### [facility] [address] [place], [address] Nucleated RBC (Bld) [#/Vol] 0 10*3/uL Normal 0-5 [facility] Comment on above: Performed By: #### L 100.0100, L501.6710, L500.4050 #### [facility] [address] [place], [address] Platelet mean volume (Bld) [Entitic vol] 10.2 fL Normal 6.2-12.0 [facility] Comment on above: Performed By: #### L 100.0100, L501.6710, L500.4050 #### [facility] [address] [place], [address] Platelets (Bld) [#/Vol] 198 10*3/uL Normal 150-450 [facility] Comment on above: Performed By: #### L 100.0100, L501.6710, L500.4050 #### [facility] [address] [place], [address] RBC (Bld) [#/Vol] 4.22 10*6/uL Normal 4.2-5.4 [facility] Comment on above: Performed By: #### L 100.0100, L501.6710, L500.4050 #### [facility] [address] [place], [address] RDW SD 48.2 fl High 35.1-43.9 [facility] Comment on above: Performed By: #### L 100.0100, L501.6710, L500.4050 #### [facility] [address] [place], [address] WBC (Bld) [#/Vol] 5.2 10*3/uL Normal 4.4-11.0 [facility] Comment on above: Performed By: #### L 100.0100, L501.6710, L500.4050 #### [facility] [address] [place], [address] CRP [Mass/Vol]Ordered By: Marianela Partida on 08-05-2024 C-Reactive Protein Extended Range 13.80 mg/L High 0.0-3.0 [facility] Carbon dioxide, total [Moles /volume] in Central venous bloodOrdered By: Stephanie Partida on 08-05-2024 CO2 [Moles/Vol] 21.1 mmol/L 21.0-32.0 [facility] Chloride assayOrdered By: Marianela Partida on 08-05-2024 Chloride [Moles/Vol] 105 mmol/L 98-108 [facility] Eosinophil percentageOrdered By: Stephanie Partida on 08-05-2024 Eosinophils/100 WBC (Bld) 6.7 % High 0-5 [facility] Erythrocyte distribution wid th ratioOrdered By: Stephanie Partida on 08-05-2024 Erythrocyte distribution width (RBC) [Ratio] 13.4 % 11.6-14.6 [facility] Erythrocyte distribution wid th standard deviationOrdered By: Stephanie Partida on 08-05-2024 Erythrocyte distribution width (RBC) [Entitic vol] 48.2 fL High 35.1-43.9 [facility] Erythrocyte distribution width (RBC) [Ratio] 48.2 fl High 35.1-43.9 [facility] GFR/1.73 sq M.predicted kayla g non-blacks MDRD (S/P/Bld) [Vol rate/Area]Ordered By: Stephanie Partida on 08-05-2024 Estimated GFR (MDRD) Non-Af Amer 41 Low >60 [facility] Comment on above: mL/min/1.73m2 CKD-EP I Creatinine Equation (2020) Glomerular filtration rate ( GFR) estimation/1.73 sq m using serum, plasma, or whole bOrdered By: Stephanie Partida on 08-05-2024 GFR/1.73 sq M.predicted among non-blacks MDRD (S/P/Bld) [Vol rate/Area] 41 mL/min/{1.73_m2} Low >60 [facility] Comment on above: mL/min/1.73m2 CKD-EP I Creatinine Equation (2020) Hematocrit Auto (Bld) [Volum e fraction]Ordered By: Stephanie Partida on 08-05-2024 Hematocrit (Bld) [Volume fraction] 40.8 % 37-47 [facility] Hemoglobin measurementOrdere d By: Stephanie Partida on 08-05-2024 Hemoglobin (Bld) [Mass/Vol] 13.0 g/dL 12.0-15.0 [facility] Immature granulocytes/100 WB C Auto (Bld)Ordered By: Stephanie Partida on 08-05-2024 Immature granulocytes/100 WBC (Bld) 0.600 % 0.0-0.9 [facility] Comment on above: IG% - Immature Granu locytes (promyelocytes, myelocytes and metamyelocytes) > 1% indicates that a LEFT SHIFT is Present. Laboratory - Chemistry and C hemistry - challengeOrdered By: Stephanie Partida on 08-05-2024 AST [Catalytic activity/Vol] 23 U/L <32 [facility] Lymphocytes Auto (Unsp spec) [#/Vol]Ordered By: Stephanie Partida on 08-05-2024 Lymphocytes (Bld) [#/Vol] 0.73 10*3/uL Low 0.83-4.51 [facility] Lymphocytes/100 WBC Auto (Un sp spec)Ordered By: Stephanie Partida on 08-05-2024 Lymphocytes/100 WBC (Bld) 14.0 % Low 19-41 [facility] MCV (mean corpuscular volume ) determinationOrdered By: Stephanie Partida on 08-05-2024 MCV (RBC) [Entitic vol] 96.7 fL 81-99 [facility] Mean corpuscular hemoglobin (MCH) determinationOrdered By: Stephanie Partida on 08-05-2024 MCH (RBC) [Entitic mass] 30.8 pg 27.0-32.0 [facility] Mean corpuscular hemoglobin concentration (MCHC) determinationOrdered By: Stephanie Partida on 08-05-2024 MCHC (RBC) [Mass/Vol] 31.9 g/dL Low 32-36 [facility] Mean platelet volume determi nationOrdered By: Stephanie Partida on 08-05-2024 Platelet mean volume (Bld) [Entitic vol] 10.2 fL 6.2-12.0 [facility] Monocyte percentageOrdered B y: Stephanie Partida on 08-05-2024 Monocytes/100 WBC (Bld) 12.3 % High 0-10 [facility] Neutrophil percentageOrdered By: Stephanie Partida on 08-05-2024 Neutrophils/100 WBC (Bld) 65.4 % 47-70 [facility] Nucleated red blood cell per centageOrdered By: Stephanie Partida on 03-24-2025 Nucleated RBC/100 WBC (Bld) [Ratio] 0 % 0-5 [facility] Platelet countOrdered By: Marianela Partida on 08-05-2024 Platelets (Bld) [#/Vol] 198 10*3/uL 150-450 [facility] Potassium (Unsp spec) [Mass/ Vol]Ordered By: Stephanie Partida on 08-05-2024 Potassium [Moles/Vol] 4.0 mmol/L 3.3-5.1 [facility] Potassium measurement (mass/ volume)Ordered By: Stephanie Partida on 08-05-2024 Potassium (Unsp spec) [Mass/Vol] 4.0 mmol/L 3.3-5.1 [facility] RBC Auto (Bld) [#/Vol]Ordere d By: Stephanie Partida on 08-05-2024 RBC (Bld) [#/Vol] 4.22 10*6/uL 4.2-5.4 [facility] Serum creatinine measurement (mass/volume)Ordered By: Stephanie Partida on 08-05-2024 Creatinine [Mass/Vol] 1.28 mg/dL High 0.70-1.20 [facility] Serum globulin measurementOr dered By: Stephanie Partida on 08-05-2024 Globulin (S) [Mass/Vol] 2.8 g/dL 2.2-4.2 [facility] Serum glucose measurement (m ass/volume)Ordered By: Stephanie Partida on 08-05-2024 Glucose [Mass/Vol] 90 mg/dL 70-99 [facility] Serum or plasma C reactive p rotein measurement (mass/volume)Ordered By: Stephanie Partida on 08-05-2024 CRP [Mass/Vol] 13.80 mg/L High 0.0-3.0 [facility] Serum or plasma alanine horner otransferase (ALT) measurementOrdered By: Stephanie Partida on 08-05-2024 ALT [Catalytic activity/Vol] 12 U/L <35 [facility] Serum or plasma albumin kj urement (mass/volume)Ordered By: Stephanie Partida on 08-05-2024 Albumin [Mass/Vol] 3.9 g/dL 3.4-4.8 [facility] Serum or plasma albumin/glob ulin mass ratioOrdered By: Stephanie Partida on 08-05-2024 Albumin/Globulin [Mass ratio] 1.4 {ratio} 0.9-2.4 [facility] Serum or plasma alkaline daysi sphatase measurementOrdered By: Stephanie Partida on 08-05-2024 ALP [Catalytic activity/Vol] 58 U/L 35-104 [facility] Serum or plasma calcium kj urement (mass/volume)Ordered By: Stephanie Partida on 08-05-2024 Calcium [Mass/Vol] 9.7 mg/dL 7.6-11.0 [facility] Serum or plasma urea nitroge n measurement (mass/volume)Ordered By: Stephanie Partida on 08-05-2024 Urea nitrogen [Mass/Vol] 28 mg/dL High 4-19 [facility] Sodium levelOrdered By: Stephanie Partida on 08-05-2024 Sodium [Moles/Vol] 140 mmol/L 133-145 [facility] Total proteinOrdered By: Cecelia Partida on 08-05-2024 Protein [Mass/Vol] 6.7 g/dL 5.9-8.4 [facility] White blood cell (WBC) count Ordered By: Stephanie Partida on 08-05-2024 WBC (Bld) [#/Vol] 5.2 10*3/uL 4.4-11.0 [facility] CNOVon 08-01-2024 CNOV Office Visit (GENSWS ) GABRIELA RAMON ([id number]) 1940 F Date Time Provider Department 08/01/24 11:15 AM VIRI CAMPOS During your visit today, we recorded the following information about you: Temperature Pulse Respiration Blood pressure 97.9 degrees 85/minute 17/minute 112/60 Weight 66.5 kg Viri Campos APRN.CNP 08/01/2024 1:01 PM Signed FOLLOW UP VISIT - ENDOSCOPY Gabriela Ramon 1940 [id number] REFERRING PHYSICIAN: No referring provider defined for this encounter. Gabriela Ramon is a patient I am following for polyp removal by Dr. Hester. Dr. Hester performed lower endoscopy on 06/10/24. The patient was found to have Pathology demonstrated: FINAL DIAGNOSIS A. Ascending colon polyp, biopsy: - Tubular adenoma. B. Cecal polyp, endoscopic mucosal resection: - Tubular adenoma. - Lateral cauterized margins free of adenoma. - No evidence of invasive carcinoma. The patient notes no complaints since the procedure. VITALS: There were no vitals taken for this visit. General: patient is alert, cooperative, pleasant and in no acute distress On examination, the abdomen is benign. Assessment ASSESSMENT/PLAN: 1. Multiple adenomatous polyps - ICD9: 229.9, ICD10: D36.9 The operative findings and pathology report were reviewed with the patient, and the patient has had the opportunity to ask questions and have questions answered. If the patient notes any problems or changes in bowel function, the patient should contact me immediately. Otherwise I recommend follow up endoscopy in 6 months. updated and recall letter generated. Discussed treatment plan and patient voices understanding. Patient's questions answered appropriately. Medications and potential side effects were discussed and patient voices understanding. Return to the office as scheduled or as needed for worsening/no improvement. Viri Campos APRN.JAXON Allergies As of Date: 08/01/2024 (No Known Allergies) Date Reviewed: 08/01/2024 Reviewed by: Viri Campos APRN.JAVASCRIPT SOFTWARE ENGINEER - Fully Assessed Reason for Visit: Established Patient [175] Primary Visit Diagnosis:Multiple adenomatous polyps [D36.9] Prescriptions as of 08/01/2024 - cholecalciferol (VITAMIN D-3) 5,000 unit tab Take 5,000 Units by mouth once daily. - metoprolol succinate ER (TOPROL XL) 50 mg 24 hr tablet Take 50 mg by mouth once daily. - ZINC ACETATE ORAL Take 1 tablet by mouth once daily. - HYDROcodone-acetaminophen 2.5-325 mg tab Take 1 tablet by mouth every 6 hours as needed for pain. - furosemide (LASIX) 40 mg tablet Take 40 mg by mouth two times a day. - Cephalexin 250 mg tab Take 250 mg by mouth once daily. - POTASSIUM-99 ORAL Take 1 tablet by mouth once daily. - omeprazole (PRILOSEC) 20 mg capsule Take 1 capsule by mouth once daily. - mecobalamin (B12 ACTIVE ORAL) Take by mouth once daily. - isosorbide mononitrate [...] 1 tablet by mouth once daily. - baclofen (LIORESAL) 10 mg tablet Take 10 mg by mouth twice daily as needed (muscle spasms). TAKE 0.5-1 TABLET BID PRN FOR SPASMS Medication notes this encounter B12 ACTIVE ORAL >> Alicia Chandra RN 08/01/2024 11:11 AM >> ALICIA CHANDRA [facility] Aug 01, 2024 11:11 AM Problem List As Of Date 08/01/2024 Noted Resolved Coronary atherosclerosis [I25.10] 08/08/2007 HYPERLIPIDEMIA NEC/NOS [E78.5] 08/08/2007 BENIGN HYPERTENSION [I10] 08/08/2007 Osteoporosis [M81.0] 08/08/2007 INGROWING NAIL [L60.0] 02/05/2008 Unspecified Cellulitis and Abscess of Toe [L03.*02/02/2009 Impaired Fasting Blood Sugar [R73.01] 06/08/2009 Backache [M54.9] 01/25/2011 Pain in thoracic spine [M54.6] 02/03/2011 Abdominal pain, unspecified site [R10.9] 01/05/2012 Umbilical hernia without mention of obstruction*02/03/2012 Inguinal hernia without mention of obstruction *02/03/2012 Type I or II open fracture of left ankle [S82.8*04/07/2020 Obesity, Class I, BMI 30-34.9 [E66.811] 04/08/2020 Medications Discontinued During This Encounter Prescriptions - atenolol (TENORMIN) 25 mg tablet (Discontinued) Reported on 08/01/2024 Encounter Status:Closed by VIRI CAMPOS on 08/01/24 Normal [facility] Absolute lymphocyte countOrd ered By: Stephanie Damienisak on 07-12-2024 Lymphocytes Auto (Unsp spec) [#/Vol] 0.90 10*3/uL 0.83-4.51 [facility] Absolute neutrophil countOrd ered By: Stephanie Partida on 07-12-2024 Neutrophils (Bld) [#/Vol] 11.2 10*3/uL High 2.0-7.7 [facility] Automated lymphocyte count a s percentage of total leukocytesOrdered By: Stephanie Damienisak on 07-12-2024 Lymphocytes/100 WBC Auto (Unsp spec) 7.0 % Low 19-41 [facility] BUN/creatinine ratioOrdered By: Stephanie Partida on 07-12-2024 Urea nitrogen/Creatinine [Mass ratio] 24.8 mg/mg High 10-20 [facility] Basophil percentageOrdered B y: Stephanie Quezadaisak on 07-12-2024 Basophils/100 WBC (Bld) 0.2 % 0-1 [facility] Bilirubin, totalOrdered By: Stephanie Quezadaisak on 07-12-2024 Bilirubin [Mass/Vol] 0.31 mg/dL 0.00-1.30 [facility] CBC W/Diff, Automatedon 06-16 Absolute Lymph 0.90 X10 3/uL Normal 0.83-4.51 [facility] Comment on above: Performed By: #### L 506.1001, L503.0106, L500.4050, L100.0100, L500.4100 ####[facility] [address] [place], [place], [id number] Absolute Neut 11.2 X10 3/uL High 2.0-7.7 [facility] Comment on above: Performed By: #### L 506.1001, L503.0106, L500.4050, L100.0100, L500.4100 ####[facility] [address] [place], [address] Basophils/100 WBC (Bld) 0.2 % Normal 0-1 [facility] Comment on above: Performed By: #### L 506.1001, L503.0106, L500.4050, L100.0100, L500.4100 ####[facility] [address] [place], [address] Eosinophils/100 WBC (Bld) 0.0 % Normal 0-5 [facility] Comment on above: Performed By: #### L 506.1001, L503.0106, L500.4050, L100.0100, L500.4100 ####[facility] [address] [place], [address] Erythrocyte distribution width (RBC) [Ratio] 12.5 % Normal 11.6-14.6 [facility] Comment on above: Performed By: #### L 506.1001, L503.0106, L500.4050, L100.0100, L500.4100 ####[facility] [address] [place], [address] Hematocrit (Bld) [Volume fraction] 40.2 % Normal 37-47 [facility] Comment on above: Performed By: #### L 506.1001, L503.0106, L500.4050, L100.0100, L500.4100 ####[facility] [address] [place], [address] Hemoglobin (Bld) [Mass/Vol] 13.5 g/dL Normal 12.0-15.0 [facility] Comment on above: Performed By: #### L 506.1001, L503.0106, L500.4050, L100.0100, L500.4100 ####[facility] [address] [place], [address] IG% 0.600 Normal 0.0-0.9 [facility] Comment on above: Result Comment: IG% - Immature Granulocytes (promyelocytes, myelocytes and metamyelocytes) > 1% indicates that a LEFT SHIFT is Present. Performed By: #### L 506.1001, L503.0106, L500.4050, L100.0100, L500.4100 ####[facility] [address] [place], [address] Lymphocytes/100 WBC (Bld) 7.0 % Low 19-41 [facility] Comment on above: Performed By: #### L 506.1001, L503.0106, L500.4050, L100.0100, L500.4100 ####[facility] [address] [place], [address] MCH (RBC) [Entitic mass] 31.3 pg Normal 27.0-32.0 [facility] Comment on above: Performed By: #### L 506.1001, L503.0106, L500.4050, L100.0100, L500.4100 ####[facility] [address] [place], [address] MCHC (RBC) [Mass/Vol] 33.6 g/dL Normal 32-36 [facility] Comment on above: Performed By: #### L 506.1001, L503.0106, L500.4050, L100.0100, L500.4100 ####[facility] [address] [place], [address] MCV (RBC) [Entitic vol] 93.3 fL Normal 81-99 [facility] Comment on above: Performed By: #### L 506.1001, L503.0106, L500.4050, L100.0100, L500.4100 ####[facility] [address] [place], [address] Monocytes/100 WBC (Bld) 4.4 % Normal 0-10 [facility] Comment on above: Performed By: #### L 506.1001, L503.0106, L500.4050, L100.0100, L500.4100 ####[facility] [address] [place], [address] Neutrophils/100 WBC (Bld) 87.8 % High 47-70 [facility] Comment on above: Performed By: #### L 506.1001, L503.0106, L500.4050, L100.0100, L500.4100 ####[facility] [address] [place], [address] Nucleated RBC (Bld) [#/Vol] 0 10*3/uL Normal 0-5 [facility] Comment on above: Performed By: #### L 506.1001, L503.0106, L500.4050, L100.0100, L500.4100 ####[facility] [address] [place], [address] Platelet mean volume (Bld) [Entitic vol] 9.9 fL Normal 6.2-12.0 [facility] Comment on above: Performed By: #### L 506.1001, L503.0106, L500.4050, L100.0100, L500.4100 ####[facility] [address] [place], [address] Platelets (Bld) [#/Vol] 233 10*3/uL Normal 150-450 [facility] Comment on above: Performed By: #### L 506.1001, L503.0106, L500.4050, L100.0100, L500.4100 ####[facility] [address] [place], [address] RBC (Bld) [#/Vol] 4.31 10*6/uL Normal 4.2-5.4 [facility] Comment on above: Performed By: #### L 506.1001, L503.0106, L500.4050, L100.0100, L500.4100 ####[facility] [address] [place], [address] RDW SD 43.4 fl Normal 35.1-43.9 [facility] Comment on above: Performed By: #### L 506.1001, L503.0106, L500.4050, L100.0100, L500.4100 ####[facility] [address] [place], [address] WBC (Bld) [#/Vol] 12.8 10*3/uL High 4.4-11.0 [facility] Comment on above: Performed By: #### L 506.1001, L503.0106, L500.4050, L100.0100, L500.4100 ####[facility] [address] [place], [address] Calculated very low density lipoprotein (VLDL) cholesterol measurementOrdered By: Stephanie Partida on 07-12-2024 Calculated very low density lipoprotein (VLDL) cholesterol measurement 14 mg/dL 5-40 [facility] VLDL Cholesterol 14 mg/dL -40 [facility] Carbon dioxide measurementOr dered By: Stephanie Partida on 07-12-2024 CO2 [Moles/Vol] 19.4 mmol/L Low 22.0-29.0 [facility] Chloride measurementOrdered By: Stephanie Partida on 07-12-2024 Chloride [Moles/Vol] 105 mmol/L 96-108 [facility] Comprehensive Metabolic Prof ilon 07-12-2024 Albumin [Mass/Vol] 4.2 g/dL Normal 3.4-4.8 [facility] Comment on above: Performed By: #### L 506.1001, L503.0106, L500.4050, L100.0100, L500.4100 ####[facility] [address] [place], [address] Albumin/Globulin [Mass ratio] 1.6 {ratio} Normal 0.9-2.4 [facility] Comment on above: Performed By: #### L 506.1001, L503.0106, L500.4050, L100.0100, L500.4100 ####[facility] [address] [place], [address] ALK PHOS 66 U/L Normal 35-104 [facility] Comment on above: Performed By: #### L 506.1001, L503.0106, L500.4050, L100.0100, L500.4100 ####[facility] [address] [place], [address] ALT [Catalytic activity/Vol] 20 U/L Normal <=34 [facility] Comment on above: Performed By: #### L 506.1001, L503.0106, L500.4050, L100.0100, L500.4100 ####[facility] [address] [place], [address] Anion gap [Moles/Vol] 12 mmol/L Normal 5-15 [facility] Comment on above: Performed By: #### L 506.1001, L503.0106, L500.4050, L100.0100, L500.4100 ####[facility] [address] [place], [address] AST [Catalytic activity/Vol] 27 U/L Normal <=31 [facility] Comment on above: Performed By: #### L 506.1001, L503.0106, L500.4050, L100.0100, L500.4100 ####[facility] [address] [place], [address] Bilirubin [Mass/Vol] 0.31 mg/dL Normal 0.00-1.30 [facility] Comment on above: Performed By: #### L 506.1001, L503.0106, L500.4050, L100.0100, L500.4100 ####[facility] [address] [place], [address] BUN/CRE 24.8 RATIO High 10-20 [facility] Comment on above: Performed By: #### L 506.1001, L503.0106, L500.4050, L100.0100, L500.4100 ####[facility] [address] [place], [address] Calcium [Mass/Vol] 9.7 mg/dL Normal 7.6-11.0 [facility] Comment on above: Performed By: #### L 506.1001, L503.0106, L500.4050, L100.0100, L500.4100 ####[facility] [address] [place], [address] Chloride [Moles/Vol] 105 mmol/L Normal 96-108 [facility] Comment on above: Performed By: #### L 506.1001, L503.0106, L500.4050, L100.0100, L500.4100 ####[facility] [address] [place], [address] CO2 [Moles/Vol] 19.4 mmol/L Low 22.0-29.0 [facility] Comment on above: Performed By: #### L 506.1001, L503.0106, L500.4050, L100.0100, L500.4100 ####[facility] [address] [place], [address] Creatinine [Mass/Vol] 0.84 mg/dL Normal 0.70-1.20 [facility] Comment on above: Performed By: #### L 506.1001, L503.0106, L500.4050, L100.0100, L500.4100 ####[facility] [address] [place], [address] GFR/1.73 sq M.predicted among non-blacks MDRD (S/P/Bld) [Vol rate/Area] 68 mL/min/{1.73_m2} Normal >60 [facility] Comment on above: Result Comment: mL/m in/1.73m2 CKD-EPI Creatinine Equation (2020) Performed By: #### L 506.1001, L503.0106, L500.4050, L100.0100, L500.4100 ####[facility] [address] [place], [address] Globulin (S) [Mass/Vol] 2.6 g/dL Normal 2.2-4.2 [facility] Comment on above: Performed By: #### L 506.1001, L503.0106, L500.4050, L100.0100, L500.4100 ####[facility] [address] [place], [address] Glucose [Mass/Vol] 131 mg/dL High 70-99 [facility] Comment on above: Performed By: #### L 506.1001, L503.0106, L500.4050, L100.0100, L500.4100 ####[facility] [address] [place], [address] Potassium [Moles/Vol] 4.8 mmol/L Normal 3.3-5.1 [facility] Comment on above: Performed By: #### L 506.1001, L503.0106, L500.4050, L100.0100, L500.4100 ####[facility] [address] [place], [address] Sodium [Moles/Vol] 136 mmol/L Normal 133-145 [facility] Comment on above: Performed By: #### L 506.1001, L503.0106, L500.4050, L100.0100, L500.4100 ####[facility] [address] [place], [address] T PROT 6.7 g/dL Normal 5.9-8.4 [facility] Comment on above: Performed By: #### L 506.1001, L503.0106, L500.4050, L100.0100, L500.4100 ####[facility] [address] [place], [address] Urea nitrogen [Mass/Vol] 21 mg/dL High 4-19 [facility] Comment on above: Performed By: #### L 506.1001, L503.0106, L500.4050, L100.0100, L500.4100 ####[facility] [address] [place], [address] Eosinophil percentageOrdered By: Stephanie Partida on 07-12-2024 Eosinophils/100 WBC (Bld) 0.0 % 0-5 [facility] Erythrocyte distribution wid th ratioOrdered By: Stephanie Partida on 07-12-2024 Erythrocyte distribution width (RBC) [Ratio] 12.5 % 11.6-14.6 [facility] Erythrocyte distribution wid th standard deviationOrdered By: Stephanie Partida on 07-12-2024 Erythrocyte distribution width (RBC) [Entitic vol] 43.4 fL 35.1-43.9 [facility] Erythrocyte distribution width (RBC) [Ratio] 43.4 fl 35.1-43.9 [facility] GFR/1.73 sq M.predicted kayla g non-blacks MDRD (S/P/Bld) [Vol rate/Area]Ordered By: Stephanie Partida on 07-12-2024 Estimated GFR (MDRD) Non-Af Amer 68 >60 [facility] Comment on above: mL/min/1.73m2 CKD-EP I Creatinine Equation (2020) Glomerular filtration rate ( GFR) estimation/1.73 sq m using serum, plasma, or whole bOrdered By: Stephanie Partida on 07-12-2024 GFR/1.73 sq M.predicted among non-blacks MDRD (S/P/Bld) [Vol rate/Area] 68 mL/min/{1.73_m2} >60 [facility] Comment on above: mL/min/1.73m2 CKD-EP I Creatinine Equation (2020) Hematocrit Auto (Bld) [Volum e fraction]Ordered By: Stephanie Partida on 07-12-2024 Hematocrit (Bld) [Volume fraction] 40.2 % 37-47 [facility] Hemoglobin measurementOrdere d By: Stephanie Partida on 07-12-2024 Hemoglobin (Bld) [Mass/Vol] 13.5 g/dL 12.0-15.0 [facility] Immature granulocytes/100 WB C Auto (Bld)Ordered By: Stephanie Partida on 07-12-2024 Immature granulocytes/100 WBC (Bld) 0.600 % 0.0-0.9 [facility] Comment on above: IG% - Immature Granu locytes (promyelocytes, myelocytes and metamyelocytes) > 1% indicates that a LEFT SHIFT is Present. L503.0106on 07-12-2024 Cobalamin (Vitamin B12) [Mass/Vol] 976 pg/mL High 180-914 [facility] Comment on above: Performed By: #### L 506.1001, L503.0106, L500.4050, L100.0100, L500.4100 ####[facility] [address] [place], [address] L506.1001on 07-12-2024 Vitamin D 25-OH 60.8 ng/mL Normal 30-100 [facility] Comment on above: Result Comment: Shanae min D Status Deficiency: <20 ng/mL (50nmol/L) Insufficiency: 20-30 ng/mL (50-75 nmol/L) Sufficiency: 30-100 ng/mL (75-250 nmol/L) Toxicity: >100 ng/mL (>250 nmol/L) Performed By: #### L 506.1001, L503.0106, L500.4050, L100.0100, L500.4100 ####[facility] [address] [place], [address] LDL calc ser/plasOrdered By: Stephanie Damienisak on 07-12-2024 Cholesterol in LDL [Mass/Vol] 94 mg/dL [facility] Comment on above: Bfnqboeqkq=656-101 m g/dL & Higher Yuil=742 mg/dL or greater LDL Cholesterol, Calculated 94 mg/dL [facility] Comment on above: Jzlxcpxnhn=196-370 m g/dL & Higher Lnnc=061 mg/dL or greater Laboratory - Chemistry and C hemistry - challengeOrdered By: Stephanie Partida on 07-12-2024 AST [Catalytic activity/Vol] 27 U/L <32 [facility] Lipid Profileon 07-12-2024 CHOL:HDL 2.78 Normal [facility] Comment on above: Performed By: #### L 506.1001, L503.0106, L500.4050, L100.0100, L500.4100 ####[facility] [address] [place], [address] Cholesterol [Mass/Vol] 168 mg/dL Normal <=200 [facility] Comment on above: Result Comment: Chol esterol level, Desirable <200 mg/dL Borderline high cholesterol 200-239 mg/dL High cholesterol >=240 mg/dL Recommendations of the NCEP Adult Treatment Panel for the following risk-cutoff thresholds for the [place] population. Performed By: #### L 506.1001, L503.0106, L500.4050, L100.0100, L500.4100 ####[facility] [address] [place], [address] Cholesterol in HDL [Mass/Vol] 61 mg/dL Normal [facility] Comment on above: Result Comment: Katja onal Cholesterol Education Program (NCEP) guidelines: <40 mg/dL: Low HDL-cholesterol (major risk factor for CHD) >= 60 mg/dL: High HDL-cholesterol (negative risk factor for CHD) HDL-cholesterol is affected by a number of factors, e.g. smoking, exercise, hormones, sex and age. Performed By: #### L 506.1001, L503.0106, L500.4050, L100.0100, L500.4100 ####[facility] [address] [place], [address] Cholesterol in LDL [Mass/Vol] 94 mg/dL Normal [facility] Comment on above: Result Comment: Bord fkxdql=851-527 mg/dL Higher Hzdj=530 mg/dL or greater Performed By: #### L 506.1001, L503.0106, L500.4050, L100.0100, L500.4100 ####[facility] [address] [place], [address] Cholesterol in VLDL [Mass/Vol] 14 mg/dL Normal 5-40 [facility] Comment on above: Performed By: #### L 506.1001, L503.0106, L500.4050, L100.0100, L500.4100 ####[facility] [address] [place], [address] Triglyceride [Mass/Vol] 70 mg/dL Normal [facility] Comment on above: Result Comment: The drugs N-Acetylcysteine and Metamizole may falsely depress this assay. Normal range: <150 mg/dL Borderline High: 150-199 mg/dL High: 200-499 mg/dL Very High: >500 mg/dL Performed By: #### L 506.1001, L503.0106, L500.4050, L100.0100, L500.4100 ####[facility] [address] [place], [address] Lymphocytes Auto (Unsp spec) [#/Vol]Ordered By: Stephanie Partida on 07-12-2024 Lymphocytes (Bld) [#/Vol] 0.90 10*3/uL 0.83-4.51 [facility] Lymphocytes/100 WBC Auto (Un sp spec)Ordered By: Stephanie Partida on 07-12-2024 Lymphocytes/100 WBC (Bld) 7.0 % Low 19-41 [facility] MCV (mean corpuscular volume ) determinationOrdered By: Stephanie Partida on 07-12-2024 MCV (RBC) [Entitic vol] 93.3 fL 81-99 [facility] Mean corpuscular hemoglobin (MCH) determinationOrdered By: Stephanie Partida on 07-12-2024 MCH (RBC) [Entitic mass] 31.3 pg 27.0-32.0 [facility] Mean corpuscular hemoglobin concentration (MCHC) determinationOrdered By: Stephanie Partida on 07-12-2024 MCHC (RBC) [Mass/Vol] 33.6 g/dL 32-36 [facility] Mean platelet volume determi nationOrdered By: Stephanie Partida on 07-12-2024 Platelet mean volume (Bld) [Entitic vol] 9.9 fL 6.2-12.0 [facility] Monocyte percentageOrdered B y: Stephanie Partida on 07-12-2024 Monocytes/100 WBC (Bld) 4.4 % 0-10 [facility] Neutrophil percentageOrdered By: Stephanie Partida on 07-12-2024 Neutrophils/100 WBC (Bld) 87.8 % High 47-70 [facility] Nucleated red blood cell per centageOrdered By: Stephanie Partida on 07-12-2024 Nucleated RBC/100 WBC (Bld) [Ratio] 0 % 0-5 [facility] Platelet countOrdered By: Mraianela Partida on 07-12-2024 Platelets (Bld) [#/Vol] 233 10*3/uL 150-450 [facility] RBC Auto (Bld) [#/Vol]Ordere d By: Stephanie Partida on 07-12-2024 RBC (Bld) [#/Vol] 4.31 10*6/uL 4.2-5.4 [facility] Screening total cholesterol/ high density lipoprotein (HDL) cholesterol ratioOrdered By: Stephanie Partida on 07-12-2024 Cholesterol.total/Chol esterol in HDL [Mass ratio] 2.78 {ratio} [facility] Serum creatinine measurement (mass/volume)Ordered By: Stephanie Partida on 07-12-2024 Creatinine [Mass/Vol] 0.84 mg/dL 0.70-1.20 [facility] Serum globulin measurementOr dered By: Stephanie Partida on 07-12-2024 Globulin (S) [Mass/Vol] 2.6 g/dL 2.2-4.2 [facility] Serum glucose measurement (m ass/volume)Ordered By: Stephanie Partida on 07-12-2024 Glucose [Mass/Vol] 131 mg/dL High 70-99 [facility] Serum or plasma alanine horner otransferase (ALT) measurementOrdered By: Stephanie Partida on 07-12-2024 ALT [Catalytic activity/Vol] 20 U/L <35 [facility] Serum or plasma albumin kj urement (mass/volume)Ordered By: Stephanie Partida on 07-12-2024 Albumin [Mass/Vol] 4.2 g/dL 3.4-4.8 [facility] Serum or plasma albumin/glob ulin mass ratioOrdered By: Stephanie Partida on 07-12-2024 Albumin/Globulin [Mass ratio] 1.6 {ratio} 0.9-2.4 [facility] Serum or plasma alkaline daysi sphatase measurementOrdered By: Stephanie Partida on 07-12-2024 ALP [Catalytic activity/Vol] 66 U/L 35-104 [facility] Serum or plasma anion gap de termination (moles/volume)Ordered By: Stephanie Partida on 07-12-2024 Anion gap [Moles/Vol] 12 mmol/L 5-15 [facility] Serum or plasma calcium kj urement (mass/volume)Ordered By: Stephanie Partida on 07-12-2024 Calcium [Mass/Vol] 9.7 mg/dL 7.6-11.0 [facility] Serum or plasma cholesterol in HDL measurement (mass/volume)Ordered By: Stephanie Partida on 07-12-2024 Cholesterol in HDL [Mass/Vol] 61 mg/dL >40 [facility] Comment on above: National Cholesterol Education Program (NCEP) guidelines:<40 mg/dL: Low HDL-cholesterol (major risk factor for CHD)>= 60 mg/dL: High HDL-cholesterol (negative risk factor for CHD)HDL-cholesterol is affected by a number of factors, e.g. smoking, exercise, hormones, sex and age. Serum or plasma cholesterol measurement (mass/volume)Ordered By: Stephanie Partida on 07-12-2024 Cholesterol [Mass/Vol] 168 mg/dL <201 [facility] Comment on above: Cholesterol level, D esirable <200 mg/dLBorderline high cholesterol 200-239 mg/dLHigh cholesterol >=240 mg/dLRecommendations of the NCEP Adult Treatment Panel for the following risk-cutoff thresholds for the [place] population. Serum or plasma potassium me asurementOrdered By: Stephanie Partida on 07-12-2024 Potassium [Moles/Vol] 4.8 mmol/L 3.3-5.1 [facility] Serum or plasma sodium measu rement (moles/volume)Ordered By: Stephanie Partida on 07-12-2024 Sodium [Moles/Vol] 136 mmol/L 133-145 [facility] Serum or plasma urea nitroge n measurement (mass/volume)Ordered By: Stephanie Partida on 07-12-2024 Urea nitrogen [Mass/Vol] 21 mg/dL High 4-19 [facility] Total proteinOrdered By: Cecelia Partida on 07-12-2024 Protein [Mass/Vol] 6.7 g/dL 5.9-8.4 [facility] Triglycerides measurementOrd ered By: Stephanie Partida on 07-12-2024 Triglyceride [Mass/Vol] 70 mg/dL <199 [facility] Comment on above: The drugs N-Acetylcy steine and Metamizole may falsely depress this assay. Normal range: <150 mg/dLBorderline High: 150-199 mg/dLHigh: 200-499 mg/dLVery High: >500 mg/dL Vitamin B12 ser/plasOrdered By: Stephanie Partida on 07-12-2024 Cobalamin (Vitamin B12) [Mass/Vol] 976 pg/mL High 180-914 [facility] Vitamin D, 25-hydroxyOrdered By: Stephanie Partida on 07-12-2024 Vitamin D 25-Hydroxy 60.8 ng/mL 30-100 [facility] Comment on above: Vitamin D StatusDefi ciency: <20 ng/mL (50nmol/L)Insufficiency: 20-30 ng/mL (50-75 nmol/L)Sufficiency: 30-100 ng/mL (75-250 nmol/L)Toxicity: >100 ng/mL (>250 nmol/L) White blood cell (WBC) count Ordered By: Stephanie Partida on 07-12-2024 WBC (Bld) [#/Vol] 12.8 10*3/uL High 4.4-11.0 [facility] ANES POSTPROC EVALon 025 ANES POSTPROC EVAL HNO ID: [id number] Author: FRANK VARELA MD Service: ? Author Type: Physician Type: Anesthesia Postprocedure Evaluation Filed: 06/10/2024 15:26 Note Text: POST ANESTHESIA EVALUATION NOTE : 1940 Procedure Summary Date: 06/10/24 Room / Location: Gastroenterology Anesthesia Start: 743 Anesthesia Stop: 944 Procedure: COLONOSCOPY DIAGNOSTIC Diagnosis: Polyp of colon, unspecified part of colon, unspecified type (High risk colon cancer surveillance: Personal history of colonic polyps) Scheduled Providers: Radha Hester MD; Malachi Jimenez APRN.RUG CLIPPER; Frank Varela MD Responsible Provider: Frank Varela MD Anesthesia Type: general ASA Status: 3 Anesthesia Type: general Airway Type: supplemental O2 Last Vitals Vitals Value Taken Time BP 131/65 06/10/24 1150 Temp 36.2 ?C (97.2 ?F) 06/10/24 0945 HR SpO2 90 06/10/24 1153 Resp 15 06/10/24 1150 SpO2 96 % 06/10/24 1153 Vitals shown include unfiled device data. Post Anesthesia Patient Status Patient Evaluation: PACU. PACU/ICU Patient Condition: stable. Anticipated Disposition: phase 2 then home. Neurological Status: aware and responsive. Pulmonary Status: breathing comfortably on room air Airway Control: returned to baseline unsupported. Cardiovascular Status: stable. Pain Management: clinically adequate Postoperative Hydration: acceptable. Intraoperative Events: no significant anesthesia events Post Operative Nausea/Vomiting Status: no significant post operative nausea or vomiting Recommendation: continue current plan of care. Anesthesia Observations No Documentation SIGNATURE: Frank Varela MD PATIENT NAME: Gabriela Ramon DATE: June 10, 2024 TIME: 3:26 PM CSN: [id number] Normal [facility] ANES PRE-OPon 06-10-2024 ANES PRE-OP HNO ID: [id number] Author: FRANK VARELA MD Service: ? Author Type: Physician Type: Anesthesia Preprocedure Evaluation Filed: 06/10/2024 07:32 Note Text: ANESTHESIOLOGY DAY OF SURGERY NOTE : 1940 Procedure Information Date/Time: 06/10/24 0730 Scheduled providers: Radha Hester MD; Malachi Jimenez APRN.RUG CLIPPER; Frank Varela MD Procedure: COLONOSCOPY DIAGNOSTIC Location: Gastroenterology Estimated body mass index is 27.07 kg/m? as calculated from the following: Height as of this encounter: 157.5 cm (5' 2). Weight as of this encounter: 67.1 kg (148 lb). Most recent hematocrit and potassium results: Hematocrit 41.3 04/08/2020 Potassium 4.5 04/08/2020 Relevant Problems CARDIO (+) Coronary atherosclerosis (+) Essential hypertension, benign I - PHYSICAL EVALUATION AIRWAY Patient intubated: No. Tracheostomy tube not present Mallampati: II. TM distance: >3 FB. Neck ROM: full ROM without neurological symptoms. Mouth opening: adequate. Short neck: no. Thick neck: no DENTAL Normal dental observations. Dental findings: teeth intact. II - ANESTHESIA PLAN ASA Score: 3 Anesthetic Plan: general Airway type: supplemental O2 The patient is not a current smoker. NPO Status: adequate Beta Mis Monitoring Plan Monitoring plan: standard ASA. Post Procedure Analgesic Plan Informed Consent Anesthetic risks, benefits, alternatives, personnel and consent discussed: yes. Patient / Responsible Democrat agrees to proceed: yes Patient / Surrogate agrees to blood products: blood products not planned Potential Anesthesia issues that may suggest increased risk of complications or contraindication to planned procedure: none. Vitals Value Taken Time BP Pulse Resp Temp SpO2 96 % 06/10/24 0730 Vitals shown include unfiled device data. Outpatient Medications as of 06/10/2024 Medication Sig - amLODIPine (NORVASC) 10 mg tablet Take 1 tablet by mouth once daily. - ZINC ACETATE ORAL Take 1 tablet by mouth once daily. - HYDROcodone-acetaminophen 2.5-325 mg tab Take 1 tablet by mouth every 6 hours as needed for pain. - furosemide (LASIX) 40 mg tablet Take 40 mg by mouth two times a day. - Cephalexin 250 mg tab Take 250 mg by mouth once daily. - POTASSIUM-99 ORAL Take 1 tablet by mouth once daily. - omeprazole (PRILOSEC) 20 mg capsule Take 1 capsule by mouth once daily. - mecobalamin (B12 ACTIVE ORAL) Take by mouth once daily. - isosorbide mononitrate [...] differently: Take 25 mg by mouth once daily.) - baclofen (LIORESAL) 10 mg tablet Take 10 mg by mouth twice daily as needed (muscle spasms). TAKE 0.5-1 TABLET BID PRN FOR SPASMS Facility-Administered Medications as of 06/10/2024 Medication Dose Route Frequency - lidocaine (PF) 10 mg/mL (1 %) 1-2 mg injection (XYLOCAINE) 0.1-0.2 mL INTRADERMAL PRN I have interviewed and examined the patient. I have reviewed the medical record and/or the pre-anesthesia evaluation, pertinent labs, and test results. This contains updated information obtained within 48 hours of Surgery/Procedure. SIGNATURE: Frank Varela MD PATIENT NAME: Gabriela Ramon DATE: June 10, 2024 TIME: 7:32 AM CSN: [id number] Normal [facility] Colonoscopyon 06-10-2024 Colonoscopy A31 Gastrointestinal Endoscopy Patient Name: Gabriela Ramon Procedure Date: 06/10/2024 7:06 AM Date of : 1940 Admit Type: Outpatient Age: 84 Room: A3 [facility] 3 Gender: Female Note Status: Finalized Attending MD: Mikey Hester MD, [id number] Procedure: Colonoscopy Indications: High risk colon cancer surveillance: Personal history of colonic polyps Providers: Mikey Hester MD Patient Profile: Refer to note in patient chart for documentation of history and physical. Last Colonoscopy: within the past 6 months. Referring Physician: Jerri Lemon MD Medicines: Propofol per Anesthesia Complications: No immediate complications. Requesting Provider: Procedure: Pre-Anesthesia Assessment: - Prior to the procedure, a History and Physical was performed, and patient medications and allergies were reviewed. The patient is competent. The risks and benefits of the procedure and the sedation options and risks were discussed with the patient. All questions were answered and informed consent was obtained. Patient identification and proposed procedure were verified by the physician and the nurse in the pre-procedure area in the procedure room. Mental Status Examination: normal. Airway Examination: normal oropharyngeal airway and neck mobility. Respiratory Examination: clear to auscultation. CV Examination: normal. ASA Grade Assessment: III - A patient with severe systemic disease. After reviewing the risks and benefits, the patient was deemed in satisfactory condition to undergo the procedure. The anesthesia plan was to use deep sedation / analgesia. Immediately prior to administration of medications, the patient was re-assessed for adequacy to receive sedatives. The heart rate, respiratory rate, oxygen saturations, blood pressure, adequacy of pulmonary ventilation, and response to care were monitored throughout the procedure. The physical status of the patient was re-assessed after the procedure. After I obtained informed consent, the scope was passed under direct vision. Throughout the procedure, the patient's blood pressure, pulse, and oxygen saturations were monitored continuously. The Colonoscope was introduced through the anus and advanced to the ileocecal valve. The colonoscopy was performed without difficulty. The patient tolerated the procedure well. The terminal ileum, ileocecal valve, appendiceal orifice, and rectum were photographed. Injection start time 8:23 AM. Procedure end time 9:31 AM The quality of the bowel preparation was adequate. Moderate Sedation: Exam was performed under General Anesthesia Findings: The perianal and digital rectal examinations were normal. Pertinent negatives include normal sphincter tone. A 40 mm polyp was found in the cecum. The polyp was sessile. Preparations were made for endoscopic submucosal dissection. Demarcation of the lesion was performed with blue light imaging to clearly identify the boundaries of the lesion. 50 mL of endoclot was injected with adequate lift of the lesion from the muscularis propria. A circumferential incision around the lesion into the submucosa was performed with a dual knife. The lesion was then dissected from the underlying deep layers with the electrocautery knife and retrieved with a suction (via the working channel). A 40 mm area was resected. Resection and retrieval were complete. Resected tissue margins were examined and clear of polyp tissue. Bleeding had stopped at the end of the procedure. To prevent bleeding post-intervention, two hemostatic clips were successfully placed (MR safe). Bleeding had stopped at the end of the procedure. A 5 mm polyp was found in the proximal ascending colon. The polyp was sessile. The polyp was removed with a hot snare. Resection and retrieval were complete. Impression: - One 40 mm polyp in the cecum, removed with endoscopic submucosal dissection. Resected and retrieved. Clips (MR safe) were placed. - One 5 mm polyp in the proximal ascending colon, removed with a hot snare. Resected and retrieved. - Endoscopic submucosal dissection was performed. Resection and retrieval were complete. Estimated Blood Loss: Estimated blood loss was minimal. Recommendation: - Repeat colonoscopy in [address] Lemon for surveillance. - Await pathology results. - Patient has a contact number available for emergencies. The signs and symptoms of potential delayed complications were discussed with the patient. Return to normal activities tomorrow. Written discharge instructions were provided to the patient. - Continue present medications. - Resume previous diet today. Procedure Code(s): --- Professional --- 43884, Colonoscopy, flexible; with removal of tumor(s), polyp(s), or other lesion(s) by snare technique 00624, Unlisted procedure, colon CPT copyright 2020 [employer]. All rights re (more content not included)... Normal [facility] Flexible sigmoidoscopy study on 06-10-2024 A31 Gastrointestinal Endoscopy Patient Name: Gabriela Ramon Procedure Date: 06/10/2024 7:06 AM Date of : 1940 Admit Type: Outpatient Age: 84 Room: [address] Gender: Female Note Status: Finalized Attending MD: Mikey Hester MD, [id number] Procedure: Colonoscopy Indications: High risk colon cancer surveillance: Personal history of colonic polyps Providers: Mikye Hester MD Patient Profile: Refer to note in patient chart for documentation of history and physical. Last Colonoscopy: within the past 6 months. Referring Physician: Jerri Lemon MD Medicines: Propofol per Anesthesia Complications: No immediate complications. Requesting Provider: Procedure: Pre-Anesthesia Assessment: - Prior to the procedure, a History and Physical was performed, and patient medications and allergies were reviewed. The patient is competent. The risks and benefits of the procedure and the sedation options and risks were discussed with the patient. All questions were answered and informed consent was obtained. Patient identification and proposed procedure were verified by the physician and the nurse in the pre-procedure area in the procedure room. Mental Status Examination: normal. Airway Examination: normal oropharyngeal airway and neck mobility. Respiratory Examination: clear to auscultation. CV Examination: normal. ASA Grade Assessment: III - A patient with severe systemic disease. After reviewing the risks and benefits, the patient was deemed in satisfactory condition to undergo the procedure. The anesthesia plan was to use deep sedation / analgesia. Immediately prior to administration of medications, the patient was re-assessed for adequacy to receive sedatives. The heart rate, respiratory rate, oxygen saturations, blood pressure, adequacy of pulmonary ventilation, and response to care were monitored throughout the procedure. The physical status of the patient was re-assessed after the procedure. After I obtained informed consent, the scope was passed under direct vision. Throughout the procedure, the patient's blood pressure, pulse, and oxygen saturations were monitored continuously. The Colonoscope was introduced through the anus and advanced to the ileocecal valve. The colonoscopy was performed without difficulty. The patient tolerated the procedure well. The terminal ileum, ileocecal valve, appendiceal orifice, and rectum were photographed. Injection start time 8:23 AM. Procedure end time 9:31 AM The quality of the bowel preparation was adequate. Moderate Sedation: Exam was performed under General Anesthesia Findings: The perianal and digital rectal examinations were normal. Pertinent negatives include normal sphincter tone. A 40 mm polyp was found in the cecum. The polyp was sessile. Preparations were made for endoscopic submucosal dissection. Demarcation of the lesion was performed with blue light imaging to clearly identify the boundaries of the lesion. 50 mL of endoclot was injected with adequate lift of the lesion from the muscularis propria. A circumferential incision around the lesion into the submucosa was performed with a dual knife. The lesion was then dissected from the underlying deep layers with the electrocautery knife and retrieved with a suction (via the working channel). A 40 mm area was resected. Resection and retrieval were complete. Resected tissue margins were examined and clear of polyp tissue. Bleeding had stopped at the end of the procedure. To prevent bleeding post-intervention, two hemostatic clips were successfully placed (MR safe). Bleeding had stopped at the end of the procedure. A 5 mm polyp was found in the proximal ascending colon. The polyp was sessile. The polyp was removed with a hot snare. Resection and retrieval were complete. Impression: - One 40 mm polyp in the cecum, remove (more content not included)... [facility] Radiology Study observation (narrative) [facility] HISTORY PHYSICALon HISTORY PHYSICAL HNO ID: [id number] Author: YUMIKO TA MD Service: Colorectal Author Type: Fellow Type: H&P Filed: 06/10/2024 07:30 Note Text: HISTORY AND PHYSICAL Gabriela Ramon, 84 year old female Current history and physical on file: No Is a new History and Physical required for today's visit? No Indication for procedure: Other polyp PROCEDURE(S) SCHEDULED FOR: Colonoscopy with or without biopsies and with or without removal of polyps or lesions, dilation (any means), treatment of bleeding (any means), based on clinical findings. BASELINE BEHAVIOR: Calm BASELINE ORIENTATION: A AND O x3 All medications and allergies reviewed: Yes Skin Assessment: Warm dry mucus membranes pink Airway/Respiratory Assessment: Airway: visualization of the uvula- No Mouth: opening greater than 2 fingerbreadths- Yes Neck: full range of motion- Yes Breath sounds clear/equal- Yes Cardiac Assessment: Regular rate and rhythm without murmur Abdominal Assessment: Abdomen soft, non-tender, no masses or organomegaly. Sedation Plan: Deep Additional Comments: None Yumiko Ta MD [facility] NURSING PROGon 06-10-2024 NURSING PROG HNO ID: [id number] Author: MUSA ALVARADO LPN Service: ? Author Type: LICENSED NURSE Type: Nursing Progress Note Filed: 06/10/2024 12:12 Note Text: MD Hester and Winona at bedside for assessment d/t pain reported from procedure. Patient and caregiver/brother displayed understanding of when to return to ER. Fellow stopped again at bedside before discharge and Patient states she was feeling better. Patient discharged with procedural documentation including when to return to ER. [facility] NURSING PROG HNO ID: [id number] Author: KEO CRABTREE RN Service: ? Author Type: Registered Nurse Type: Nursing Progress Note Filed: 06/10/2024 09:43 Note Text: AMBULATORY PATIENT EDUCATION NOTE TOPIC: GI PROCEDURES: Colonoscopy with or without biopsies based on clinical findings READINESS TO LEARN INSTRUCTION PROVIDED TO: Patient, readness to learn accessed prior to procedure, Family member, and Patient and family member COGNITIVE ABILITY: Alert and oriented PTED MOTIVATION TO LEARN: Interested FAMILY SUPPORT: None - Unavailable/disinterested IPATIENT LEARNS BEST BY: Individual Instruction Written Instruction - Hand-outs Verbal Instruction FACTORS AFFECTING LEARNING: None PHYSICAL LIMITATIONS AFFECTING LEARNING: None LEARNING RESPONSE METHOD OF INSTRUCTION: Individual instruction PATIENT / FAMILY RESPONSE: Verbalizes understanding of: WORSENING CONDITION-Signs and symptoms of a worsening condition that warrant a call to the physician FOLLOW-UP PLAN: Complete - No need for follow-up SUPPLEMENTAL MATERIAL: Procedure Discharge Instructions REFERRAL (RECOMMENDATION): None Electronically Signed By: Keo Crabtree RN [facility] NURSING PROG HNO ID: [id number] Author: PARK CARTAGENA RN Service: ? Author Type: Registered Nurse Type: Nursing Progress Note Filed: 06/10/2024 07:26 Note Text: PRE OP LEARNING ASSESSMENT PROCEDURE/SURGERY: GI PROCEDURES: Colonoscopy READINESS TO LEARN COGNITIVE ABILITY: Alert and oriented MOTIVATION TO LEARN: Interested FAMILY SUPPORT: High - Very involved in pt care PATIENT LEARNS BEST BY: Individual Instruction FACTORS AFFECTING LEARNING: None PHYSICAL LIMITATIONS AFFECTING LEARNING: None Electronically Signed By: Park Cartagena RN In Department: GASTROENTEROLOGY [facility] SURGICAL PATHOLOGYon 025 CASE REPORT [facility] Comment on above: Order Comment: Speci men Type: TISSUE SPECIMENOrdering Facility: [facility] Address: [address] [place] [address] Result Comment: Surg ical Pathology Report Case: [id number] Authorizing Provider: Radha Hester MD Collected: 06/10/2024 08:59 AM Ordering Location: Gastroenterology Received: 06/10/2024 01:30 PM Pathologist: Bijan Lovett MD Specimens: A) - Colon, Ascending Polyp, r/o adenoma B) - Colon, Cecum, Polyp, r/o adenoma Performed By: #### S ####[facility] LABCLIA [id number] [address] STATES [facility] LAB[facility] [id number] [address] OF [facility] FINAL DIAGNOSIS Normal [facility] Comment on above: Order Comment: Speci men Type: TISSUE SPECIMENOrdering Facility: [facility] Address: [address] [place] [address] Result Comment: A. A scending colon polyp, biopsy: - Tubular adenoma. B. Cecal polyp, endoscopic mucosal resection: - Tubular adenoma. - Lateral cauterized margins free of adenoma. - No evidence of invasive carcinoma. BARRETT/loki 06/12/2024 Performed By: #### S ####[facility] LABCLIA [id number] [address] LABCLIA [id number] [address] STATES [place] FINAL PERFORMING LAB Normal [facility] Comment on above: Order Comment: Speci men Type: TISSUE SPECIMENOrdering Facility: [facility] Address: [address] [place] [address] Result Comment: Diag nostic interpretation performed at: [facility], [address] [place] [address] CLIA# [id number] Bicycle Courier: Garry Aguayo MD Performed By: #### S ####[facility] LABCLIA [id number] [address] LABCLIA [id number] [address] GROSS DESCRIPTION Normal [facility] Comment on above: Order Comment: Speci men Type: TISSUE SPECIMENOrdering Facility: [facility] Address: [address] [place] [address] Result Comment: A. C olon, Ascending Polyp Received in formalin are two segments of red-brown polypoid tissue aggregating to 1.6 x 0.6 x 0.6 cm. No stalks are present. The lines of resection are noted. The specimens are bisected and totally submitted in one cassette. B. Colon, Cecum, Polyp Received in formalin is one segment of norman-red polypoid tissue measuring 2.6 x 1.2 x 1.5 cm. No stalk is present. The line of resection is noted. The specimen is trisected and totally submitted as follows: B1 JENNY, B2 sides. Gross examination performed at [facility], [address] [place] [address] AMS June 10, 2024 2:07 PM Performed By: #### S ####[facility] LABCLIA [id number] [address] LABCLIA [id number] [facility] [id number] Alisha 06-03-2024 JAXONN Telephone ([id number]) GABRIELA RAMON ([id number]) 1940 F Date Time Provider Department 06/03/24 CLIFTON NUGENT During your visit today, we recorded the following information about you: Clifton Nugent, RN 06/03/2024 2:33 PM Signed Attempted to reach the patient at the contact number that they provided [phone] pt did not answer and no voicemail is set up at this time. Allergies As of Date: 06/03/2024 (No Known Allergies) Date Reviewed: 11/28/2023 Reviewed by: Viri Campos APRN.JAVASCRIPT SOFTWARE ENGINEER - Fully Assessed Reason for Visit: Appointment [186] Prescriptions as of 06/03/2024 - ZINC ACETATE ORAL Take 1 tablet by mouth once daily. - HYDROcodone-acetaminophen 2.5-325 mg tab Take 1 tablet by mouth every 6 hours as needed for pain. - furosemide (LASIX) 40 mg tablet Take 40 mg by mouth two times a day. - Cephalexin 250 mg tab Take 250 mg by mouth once daily. - POTASSIUM-99 ORAL Take 1 tablet by mouth once daily. - omeprazole (PRILOSEC) 20 mg capsule Take 1 capsule by mouth once daily. - mecobalamin (B12 ACTIVE ORAL) Take by mouth once daily. - isosorbide mononitrate [...] Take 1 tablet by mouth twice daily. - baclofen (LIORESAL) 10 mg tablet Take 10 mg by mouth twice daily as needed (muscle spasms). TAKE 0.5-1 TABLET BID PRN FOR SPASMS Problem List As Of Date 06/03/2024 Noted Resolved Coronary atherosclerosis [I25.10] 08/08/2007 HYPERLIPIDEMIA NEC/NOS [E78.5] 08/08/2007 BENIGN HYPERTENSION [I10] 08/08/2007 Osteoporosis [M81.0] 08/08/2007 INGROWING NAIL [L60.0] 02/05/2008 Unspecified Cellulitis and Abscess of Toe [L03.*02/02/2009 Impaired Fasting Blood Sugar [R73.01] 06/08/2009 Backache [M54.9] 01/25/2011 Pain in thoracic spine [M54.6] 02/03/2011 Abdominal pain, unspecified site [R10.9] 01/05/2012 Umbilical hernia without mention of obstruction*02/03/2012 Inguinal hernia without mention of obstruction *02/03/2012 Type I or II open fracture of left ankle [S82.8*04/07/2020 Obesity, Class I, BMI 30-34.9 [E66.811] 04/08/2020 Encounter Status:Closed by CLIFTON NUGENT on 06/03/24 [facility] 03-[id number]-Wnrtnoy DOrdered By: Grant Partida on 05-13-2024 Vitamin D 25-Hydroxy 29.6 ng/mL [facility] Comment on above: Vitamin D 25(OH) Sta tus Range Deficiency <20 ng/mL (50nmol/L) Insufficiency 20 - 30 ng/mL (50 - 75 nmol/L) Sufficiency 30 - 100 ng/mL (75 - 250 nmol/L) Toxicity >100 ng/mL (>250 nmol/L) Direct serum free thyroxine (FT4) measurementOrdered By: Stephanie Partida on 05-13-2024 Free T4 [Mass/Vol] 1.17 ng/dL 0.76-1.46 [facility] Free T3on 05-13-2024 Free T3 [Mass/Vol] 2.6 pg/mL Normal 2.18-3.98 [facility] Comment on above: Performed By: #### L 503.0105, L501.94559, L506.1000, L506.0400, L501.9520 ####[facility] [address] [place], [place], [id number] Free F5Otitgrv By: Stephanie escudero on 05-13-2024 Free Triiodothyronine (T3) pg/dL 2.6 pg/mL 2.18-3.98 [facility] T4 Free Directon 05-13-2024 T4 FREE DIRECT 1.17 ng/dL Normal 0.76-1.46 [facility] Comment on above: Performed By: #### L 503.0105, L501.92933, L506.1000, L506.0400, L501.9520 ####[facility] [address] [place], [place], [id number] TSH QnOrdered By: Stephanie Partida on 05-13-2024 Thyroid Stimulating Hormone (TSH) 0.709 uIU/mL 0.358-3.74 0 [facility] Thyroid Stim Hormone (TSH)on 05-13-2024 TSH 0.709 uIU/mL Normal 0.358-3.74 0 [facility] Comment on above: Performed By: #### L 503.0105, L501.03475, L506.1000, L506.0400, L501.9520 ####[facility] [address] [place], [address] Vitamin B12on 05-13-2024 Cobalamin (Vitamin B12) [Mass/Vol] 354 pg/mL Normal [facility] Comment on above: Performed By: #### L 503.0105, L501.71223, L506.1000, L506.0400, L501.9520 ####[facility] [address] [place], [address] Vitamin B12 measurementOrder ed By: Stephanie Partida on 05-13-2024 Cobalamin (Vitamin B12) [Mass/Vol] 354 pg/mL [facility] Vitamin D,25 Hydroxyon 05-13 Vitamin D 25-OH 29.6 ng/mL Normal [facility] Comment on above: Result Comment: Shanae min D 25(OH) Status Range Deficiency <20 ng/mL (50nmol/L) Insufficiency 20 - 30 ng/mL (50 - 75 nmol/L) Sufficiency 30 - 100 ng/mL (75 - 250 nmol/L) Toxicity >100 ng/mL (>250 nmol/L) Performed By: #### L 503.0105, L501.29326, L506.1000, L506.0400, L501.9520 ####[facility] [address] [place], [address] Venous Duplex US, Unilateral on 04-05-2024 Venous Duplex US, Unilateral [facility] [address] [place] [address] Venous Duplex US, Unilateral 04/05/24 1556 MR#: [id number] Acct: [id number] Name: GABRIELA RAMON Rep #: [id number] : 1940 83 From: Long Harris MD Attending Dr: TAMMY Adkins Status: REG CL I Ordering Dr: Noemí Gonzales Date: 04/05/24 Location: [facility] Sex: F C Admitted: Reason For Study: Left leg pain RIGHT LEFT CFV is compressible, spontaneous, phasic, GSV is normal. competent and demonstrates normal CFV is compressible, spontaneous, phasic, augmentation. competent, and demonstrates normal Procedure augmentation. This is a venous duplex using B-mode, color FV is compressible, spontaneous, phasic, flow and spectral Doppler. competent and demonstrates normal Exam performed in department. augmentation. A preliminary report was called and/or faxed POP V is compressible, spontaneous, phasic, to Christian MUNOZ. competent and demonstrates normal augmentation. T/P Trunk is compressible. PTV is compressible. LT PerV is compressible. Nonvascularized structure noted in the left popliteal fossa that measures 1.16 x 4.27 x 3.10 cm. VL/Venous Duplex US, Unilateral Interpretation Summary Deep veins of the left lower extremity are patent and compressible segmentally. There is no evidence of left lower extremity deep vein thrombosis. Valvular competence appears intact within the proximal deep venous system on the left . The left great saphenous vein appears patent and compressible segmentally. A non-vascular, hypoechoic structure is noted in the left popliteal space, measuring 1.16 cm x 4.27 cm x 3.10 cm. This probably represents a popliteal cyst. Clinical correlation is advised. The right common femoral vein is patent and compressible . Ordering Physician: Noemí Gonzales Referring Physician: Noemí Gonzales Performed By: Elizabeth Schroeder RVT 04/05/242117 Date Long Harris MD CC: TAMMY Gonzales Date Dictated: 04/05/24 1556 Date Transcribed: 04/05/242117 Esthetics Instructor: Signed Normal [facility] CBC W/Diff, Automatedon 12-13 Anisocytosis Ql (Bld) 1+ Normal [facility] Comment on above: Performed By: #### L 503.6150, L100.0100, L503.6550 ####[facility] [address] [place], [address] Ferritinon 12-27-2023 Ferritin [Mass/Vol] 41 ng/mL Normal 8-252 [facility] Comment on above: Performed By: #### L 503.6150, L100.0100, L503.6550 #### [facility] [address] [place], [address] Ironon 12-27-2023 Iron [Mass/Vol] 63 ug/dL Normal 50-170 [facility] Comment on above: Performed By: #### L 503.6150, L100.0100, L503.6550 #### [facility] [address] [place], [address] Carotid Duplex Ultrasoundon 12-11-2023 Carotid Duplex Ultrasound [facility] [address] [place] [address] Carotid Duplex Ultrasound 12/11/23 1311 MR#: [id number] Acct: [id number] Name: GABRIELA RAMON Rep #: [id number] : 1940 83 From: Saad Moreland MD Attending Dr: TAMMY Adkins Status: REG CL I Ordering Dr: Noemí Gonzales DIRECTOR BANKINGJesusC Date: 12/11/23 Location: [facility] Sex: F C Admitted: Reason For Study: New on set of dizziness Rt. Velocities/BP Lt. Velocities/BP Prox CCA 61.7/11.6 cm/sec. Prox CCA 75.9/18.2 cm/sec. Mid CCA 73/14.5 cm/sec. Mid CCA 74.9/19.2 cm/sec. Dist CCA 76.8/18.2 cm/sec. Dist CCA 70.2/15.4 cm/sec. Prox ICA 64.2/10.2 cm/sec. Prox ICA 56/18.2 cm/sec. Mid ICA 64.2/18.8 cm/sec. Mid ICA 86.3/23.9 cm/sec. Dist ICA 71.6/18.8 cm/sec. Dist ICA 45/13.7 cm/sec. Rt. ICA/CCA = 0.98. Lt. ICA/CCA = 1.15. Prox ECA 110.9/2.8 cm/sec. Prox ECA 90/6.9 cm/sec. Rt. Vert. 38.1/9.7 cm/sec. Lt. Vert. 30.8/7.3 cm/sec. Right Extracranial There is intimal thickening but no significant atherosclerotic plaque noted in the right common carotid artery. There is heterogeneous, irregular atherosclerotic plaque noted in the right internal carotid artery. There is intimal thickening but no significant atherosclerotic plaque noted in the right external carotid artery. Antegrade flow is noted in the right vertebral artery. Left Extracranial There is intimal thickening but no significant atherosclerotic plaque noted in the left common carotid artery. There is homogeneous, smooth atherosclerotic plaque noted in the left internal carotid artery. There is intimal thickening but no significant atherosclerotic plaque noted in the left external carotid artery. Antegrade flow is noted in the left vertebral artery. Procedure This is a Carotid Duplex examination using B-mode, color flow and specral Doppler. Carotid Duplex 02991. Exam performed in department. VL/Carotid Duplex Ultrasound Interpretation Summary Minimal plaque at the proximal right internal carotid artery with less than 50% stenosis Less than 50% stenosis right external carotid artery Minimal smooth plaque at the proximal left internal carotid artery with less than 50% stenosis Less than 50% stenosis left external carotid artery Patent and antegrade vertebral arteries bilaterally No advancement of disease from her previous blood flow screening examination of August 25, 2022 Ordering Physician: Noemí Gonzales Referring Physician: Noemí Gonzales Performed By: Elizabeth Schroeder RVT 12/11/231734 Date Saad Moreland MD CC: TAMMY Brightwoodrow Helmgar Date Dictated: 12/11/23 1311 Date Transcribed: 12/11/231734 Esthetics Instructor: Signed [facility] Office Visit (GENSWS ) GABRIELA RAMON ([id number]) 1940 F Date Time Provider Department 11/28/23 2:00 PM VIRI CAMPOS During your visit today, we recorded the following information about you: Viri Campos APRN.[facility] 11/28/2023 3:04 PM Signed FOLLOW UP VISIT - ENDOSCOPY Gabriela Ramon 1940 [id number] REFERRING PHYSICIAN: Jerri Lemon [address] [facility] [address] Gabriela Ramon is a patient I am following for screening colonoscopy and dysphagia with pills. Dr. Lemon performed upper and lower endoscopy on 11/21/2023. The patient was found to have EGD Impression: - Normal examined jejunum. - A few duodenal polyps. Biopsied. - Gastritis. Biopsied. - Normal lower third of esophagus. Biopsied. - Normal middle third of esophagus. Biopsied. Colonoscopy Impression: - Diverticulosis in the sigmoid colon. - Seven 6 to 13 mm polyps in the cecum, removed with a cold snare. Resected and retrieved. Clips (MR conditional) were placed. - One large polyp in the cecum. Biopsied. - Eight small polyps at the hepatic flexure, removed with a cold biopsy forceps. Resected and retrieved. - Three small polyps in the sigmoid colon, removed with a cold snare. Resected and retrieved. Clips (MR conditional) were placed. - Two small polyps in the rectum, removed with a cold biopsy forceps. Resected and retrieved. - The examination was otherwise normal on direct and retroflexion views. Pathology demonstrated: FINAL DIAGNOSIS A. Stomach, antrum, biopsy: - Gastric antral body type mucosa with no pathologic diagnostic abnormality; see comment. B. Esophagus, distal, biopsy: - Squamous mucosa with no pathologic diagnostic abnormality. C. Esophagus, mid, biopsy: - Squamous mucosa with no pathologic diagnostic abnormality. D. Small bowel, duodenum, polyp, biopsy: - Duodenal mucosa with gastric foveolar metaplasia. E. Colon, cecum polyp x 7, biopsy: - Multiple fragments of tubular adenoma. - Traditional serrated adenomas. F. Colon, cecal polyp/mass, biopsy: - Tubular adenoma with high-grade dysplasia. G. Colon, hepatic flexure polyps x 8, biopsy: - Multiple fragments of tubular adenoma. H. Rectum, polyps x 2, biopsy: - Multiple fragments of tubular adenoma. I. Colon, sigmoid polyps x 3, biopsy: - Multiple fragments of tubular adenoma. Diagnosis Comment SP LAB A. No microorganisms morphologically compatible with Helicobacter Pylori like organisms are identified by routine BLANCA-stained sections The patient notes no complaints since the procedure. VITALS: There were no vitals taken for this visit. General: patient is alert, cooperative, pleasant and in no acute distress On examination, the abdomen is benign. Assessment ASSESSMENT/PLAN: 1. Multiple adenomatous polyps - ICD9: 229.9, ICD10: D36.9 The operative findings and pathology report were reviewed with the patient, and the patient has had the opportunity to ask questions and have questions answered. If the patient notes any problems or changes in bowel function, the patient should contact me immediately. Referral to Dr. Hester with Colorectal surgery for endoscopic mucosal resection of large cecum mass. Discussed treatment plan and patient voices understanding. Patient's questions answered appropriately. Viri Campos APRN.JAXON Referring Provider: JERRI LEMON [[id number]] Allergies As of Date: 11/28/2023 (No Known Allergies) Date Reviewed: 11/28/2023 Reviewed by: Viri Campos APRN.CNP - Fully Assessed Reason for Visit: Follow Up [171] Cmt: 11/21/23 colonoscopy follow up Primary Visit Diagnosis:Multiple adenomatous polyps [D36.9] Order(s):CONSULT TO COLO-RECTAL SURGERY [] Order #: [id number]: 1 FUTURE Prescriptions as of 11/28/2023 - ZINC ACETATE ORAL Take 1 tablet by mouth once daily. - HYDROcodone-acetaminophen 2.5-325 mg tab Take 1 tablet by mouth every 6 hours as needed for pain. - furosemide (LASIX) 40 mg tablet Take 40 mg by mouth two times a day. - Cephalexin 250 mg tab Take 250 mg by mouth once daily. - POTASSIUM-99 ORAL Take 1 tablet by mouth once daily. - omeprazole (PRILOSEC) 20 mg capsule Take 1 capsule by mouth once daily. - mecobalamin (B12 ACTIVE ORAL) Take by mouth once daily. - isosorbide mononitrate [...] Take 1 tablet by mouth twice daily. - baclofen (LIORESAL) 10 mg tablet Take 10 mg by mouth twice daily (more content not included)... Normal [facility] Colonoscopy Study observatio non 11-21-2023 [facility] Gastrointestinal Endoscopy Patient Name: Gabriela Ramon Procedure Date: 11/21/2023 11:43 AM Date of : 1940 Admit Type: Outpatient Age: 83 Gender: Female Note Status: Finalized Procedure: Colonoscopy Indications: High risk colon cancer surveillance: Personal history of colonic polyps Providers: Jerri Lemon MD Patient Profile: This is an 83 year old female. Refer to note in patient chart for documentation of history and physical. Last Colonoscopy: 3 years ago. Referring Physician: Jerri Lemon MD (Referring MD), Stephanie Partida (Referring MD) Medicines: See the other procedure note for documentation of the administered medications Complications: No immediate complications. Requesting Provider: Procedure: Pre-Anesthesia Assessment: - Prior to the procedure, a History and Physical was performed, and patient medications and allergies were reviewed. The patient is competent. The risks and benefits of the procedure and the sedation options and risks were discussed with the patient. All questions were answered and informed consent was obtained. Patient identification and proposed procedure were verified by the physician and the nurse in the procedure room. Respiratory Examination: clear to auscultation. Prophylactic Antibiotics: The patient does not require prophylactic antibiotics. Prior Anticoagulants: The patient has taken no anticoagulant or antiplatelet agents. ASA Grade Assessment: II - A patient with mild systemic disease. After reviewing the risks and benefits, the patient was deemed in satisfactory condition to undergo the procedure. The anesthesia plan was to use moderate sedation / analgesia (conscious sedation). Immediately prior to administration of medications, the patient was re-assessed for adequacy to receive sedatives. The heart rate, respiratory rate, oxygen saturations, blood pressure, adequacy of pulmonary ventilation, and response to care were monitored throughout the procedure. The physical status of the patient was re-assessed after the procedure. After I obtained informed consent, the scope was passed under direct vision. Throughout the procedure, the patient's blood pressure, pulse, and oxygen saturations were monitored continuously. The Colonoscope was introduced through the anus and advanced to the cecum, identified by the appendiceal orifice, ileocecal valve and palpation. The colonoscopy was performed without difficulty. The patient tolerated the procedure well. The quality of the bowel preparation was good. The ileocecal valve, appendiceal orifice, and rectum were photographed. Moderate Sedation: Moderate (conscious) sedation was personally administered by the endoscopist. The following parameters were monitored: oxygen saturation, heart rate, blood pressure, and response to care. Total physician intraservice time was 56 minutes. The administration of moderate sedation was initiated at 11:58 AM. Findings: The perianal and digital rectal examinations were normal. Multiple medium-mouthed diverticula were found in the sigmoid colon. Seven semi-sessile polyps were found in the cecum. The polyps were 6 to 13 mm in size. These polyps were removed with a cold snare. Resection and retrieval were complete. To prevent bleeding after the polypectomy, two hemostatic clips were successfully placed (MR conditional). There was no bleeding at the end of the procedure. A large polyp was found in the cecum. The polyp was sessile. Biopsies were taken with a cold forceps for histology. Eight semi-sessile polyps were found in the hepatic flexure. The polyps were small in size. These polyps were removed with a cold biopsy forceps. Resection and retrieval were complete. Three semi-sessile polyps were found in the sigmoid colon. Th (more content not included)... [facility] EGD Study observation Roxana cortez 11-21-2023 Jagjit [facility] Gastrointestinal Endoscopy Patient Name: Gabriela Ramon Procedure Date: 11/21/2023 11:44 AM Date of : 1940 Admit Type: Outpatient Age: 83 Gender: Female Note Status: Finalized Procedure: Upper GI endoscopy Indications: Dysphagia Providers: Jerri Lemon MD Patient Profile: This is an 83 year old female. Refer to note in patient chart for documentation of history and physical. Referring Physician: Jerri Lemon MD (Referring MD), Stephanie Partida (Referring MD) Medicines: Midazolam 5 mg IV, Fentanyl 100 micrograms IV, Diphenhydramine 50 mg IV Complications: No immediate complications. Requesting Provider: Procedure: Pre-Anesthesia Assessment: - Prior to the procedure, a History and Physical was performed, and patient medications and allergies were reviewed. The patient is competent. The risks and benefits of the procedure and the sedation options and risks were discussed with the patient. All questions were answered and informed consent was obtained. Patient identification and proposed procedure were verified by the physician and the nurse in the procedure room. Mental Status Examination: alert and oriented. CV Examination: normal. Prophylactic Antibiotics: The patient does not require prophylactic antibiotics. Prior Anticoagulants: The patient has taken no anticoagulant or antiplatelet agents. ASA Grade Assessment: II - A patient with mild systemic disease. After reviewing the risks and benefits, the patient was deemed in satisfactory condition to undergo the procedure. The anesthesia plan was to use moderate sedation / analgesia (conscious sedation). Immediately prior to administration of medications, the patient was re-assessed for adequacy to receive sedatives. The heart rate, respiratory rate, oxygen saturations, blood pressure, adequacy of pulmonary ventilation, and response to care were monitored throughout the procedure. The physical status of the patient was re-assessed after the procedure. After obtaining informed consent, the endoscope was passed under direct vision. Throughout the procedure, the patient's blood pressure, pulse, and oxygen saturations were monitored continuously. The Endoscope was introduced through the mouth, and advanced to the jejunum. The upper GI endoscopy was accomplished without difficulty. The patient tolerated the procedure well. Moderate Sedation: Moderate (conscious) sedation was personally administered by the endoscopist. The following parameters were monitored: oxygen saturation, heart rate, blood pressure, and response to care. Total physician intraservice time was 56 minutes. The administration of moderate sedation was initiated at 11:58 AM. Findings: The examined jejunum was normal. A few small semi-pedunculated polyps with no bleeding were found in the duodenal bulb. Biopsies were taken with a cold forceps for histology. Scattered mild inflammation characterized by erosions and erythema was found in the entire examined stomach. Biopsies were taken with a cold forceps for histology. The lower third of the esophagus was normal. Biopsies were taken with a cold forceps for histology. The middle third of the esophagus was normal. Biopsies were taken with a cold forceps for histology. Impression: - Normal examined jejunum. - A few duodenal polyps. Biopsied. - Gastritis. Biopsied. - Normal lower third of esophagus. Biopsied. - Normal middle third of esophagus. Biopsied. Recommendation: - Discharge patient to home. - Resume previous diet. - Continue present medications. - Return to my office in 1 week. Procedure Code(s): --- Professional --- 83856, Esophagogastroduodenoscopy, flexible, (more content not included)... [facility] No Panel Informationon 11-20 Radiology Study observation (narrative) [facility] Absolute lymphocyte countOrd ered By: Sean Palacios on 08-06-2023 Lymphocytes Auto (Unsp spec) [#/Vol] 0.25 10*3/uL 0.83-4.51 [facility] Automated lymphocyte count a s percentage of total leukocytesOrdered By: Sean Palacios on 08-06-2023 Lymphocytes/100 WBC Auto (Unsp spec) 1.6 % 19-41 [facility] Basophil percentageOrdered B y: Sean Palacios on 08-06-2023 Basophil percentage 0-5 SEEN /hpf 0-5 [facility] Basophils/100 WBC (Bld) 0.2 % 0-1 [facility] Bilirubin [Mass/Vol] 0.40 mg/dL 0.20-1.00 [facility] Comment on above: For patients on eltr ombopag therapy, use of Dimension [place] TBIL is not recommended. Chloride [Moles/Vol] 110 mmol/L 98-107 [facility] Eosinophils/100 WBC (Bld) 1.0 % 0-5 [facility] Glucose [Mass/Vol] 182 mg/dL 74-106 [facility] Comment on above: Fasting Glucose resu lt greater than or equal to 126 mg/dL suggests DIABETES MELLITUS per A.D.A. criteria. Hemoglobin (Bld) [Mass/Vol] 12.1 g/dL 12.0-15.0 [facility] Monocytes/100 WBC (Bld) 3.5 % 0-10 [facility] Neutrophils (Bld) [#/Vol] 14.3 10*3/uL 2.0-7.7 [facility] Neutrophils/100 WBC (Bld) 93.3 % 47-70 [facility] Potassium [Moles/Vol] 4.4 mmol/L 3.5-5.1 [facility] Protein [Mass/Vol] 6.7 g/dL 6.4-8.2 [facility] Sodium [Moles/Vol] 140 mmol/L 136-145 [facility] WBC (Bld) [#/Vol] 15.3 10*3/uL 4.4-11.0 [facility] Bilirubin Test strip Ql (U)O rdered By: Sean Palacios on 08-06-2023 Bilirubin Ql (U) Negative Negative [facility] Determination of erythrocyte mean corpuscular volume (MCV)Ordered By: Sean Palacios on 08-06-2023 MCV (RBC) [Entitic vol] 84.8 fL 81-99 [facility] Erythrocyte distribution wid th ratioOrdered By: Sean Palacios on 08-06-2023 Erythrocyte distribution width (RBC) [Ratio] 14.6 % 11.6-14.6 [facility] Erythrocyte distribution wid th standard deviationOrdered By: Sean Palacios on 08-06-2023 Erythrocyte distribution width (RBC) [Entitic vol] 45.2 fL 35.1-43.9 [facility] Hematocrit Auto (Bld) [Volum e fraction]Ordered By: Sean Palacios on 08-06-2023 Hematocrit (Bld) [Volume fraction] 39.7 % 37-47 [facility] Immature granulocytes/100 WB C Auto (Bld)Ordered By: Sean Palacios on 08-06-2023 Immature granulocytes/100 WBC (Bld) 0.400 % 0.0-0.9 [facility] Comment on above: IG% - Immature Granu locytes (promyelocytes, myelocytes and metamyelocytes) > 1% indicates that a LEFT SHIFT is Present. Ketones Test strip Ql (U)Ord ered By: Sean Palacios on 08-06-2023 Ketones Ql (U) Negative Negative [facility] Laboratory - Chemistry and C hemistry - challengeOrdered By: Sean Palacios on 08-06-2023 Albumin/Globulin [Mass ratio] 1.0 {ratio} 0.9-2.4 [facility] ALP [Catalytic activity/Vol] 52 U/L 45-117 [facility] ALT [Catalytic activity/Vol] 18 U/L 13-56 [facility] CO2 [Moles/Vol] 21.0 mmol/L 21.0-32.0 [facility] Globulin (S) [Mass/Vol] 3.4 g/dL 2.2-4.2 [facility] Lipase [Catalytic activity/Vol] 249 U/L 13-75 [facility] Comment on above: Please note:LIPASE r evised reference range effective 22. New Lipase methodology. Expected to produce lower values than the previous assay method. NEW Reference Range: 13 - 75 U/L Urea nitrogen/Creatinine [Mass ratio] 23.5 mg/mg 10-20 [facility] Laboratory - Hematology and Cell countsOrdered By: Sean Palacios on 08-06-2023 MCH (RBC) [Entitic mass] 25.9 pg 27.0-32.0 [facility] MCHC (RBC) [Mass/Vol] 30.5 g/dL 32-36 [facility] Nucleated RBC/100 WBC (Bld) [Ratio] 0 % 0-5 [facility] Platelet mean volume (Bld) [Entitic vol] 9.1 fL 6.2-12.0 [facility] Platelets (Bld) [#/Vol] 302 10*3/uL 150-450 [facility] Laboratory - Microbiology an d Antimicrobial susceptibilityOrdered By: Sean Palacios on 08-06-2023 SARS-CoV-2 (COVID-19) RNA EVY+probe Ql (Unsp spec) [facility] Mucus LM Ql (Urine sed)Order ed By: Sean Palacios on 08-06-2023 Mucus Ql (Urine sed) 0 SEEN /hpf [facility] Nitrite Test strip Ql (U)Ord ered By: Sean Palacios on 08-06-2023 Nitrite Ql (U) Negative Negative [facility] No Panel InformationOrdered By: Sean Palacios on 08-06-2023 Urine RBC 0 SEEN /hpf 0-5 [facility] Estimated Creatinine Clearance Calc 29.80 ml/min [facility] Estimated GFR (MDRD) Amer 49 mL/min >60 [facility] Comment on above: GFR Calc Estimated GFR (MDRD) Non-Af Amer 41 mL/min >60 [facility] Comment on above: Non- GFR Calc Protein Test strip Ql (U)Ord ered By: Sean Palacios on 08-06-2023 Protein Ql (U) 30 mg/dl Negative [facility] RBC Auto (Bld) [#/Vol]Ordere d By: Sean Palacios on 08-06-2023 RBC (Bld) [#/Vol] 4.68 10*6/uL 4.2-5.4 [facility] Serum or plasma calcium kj urement (mass/volume)Ordered By: Sean Palacios on 08-06-2023 Calcium [Mass/Vol] 9.2 mg/dL 8.5-10.1 [facility] Serum or plasma creatinine m easurement (mass/volume)Ordered By: Sean Palacios on 08-06-2023 Creatinine [Mass/Vol] 1.32 mg/dL 0.55-1.02 [facility] Comment on above: The validity of the calculated GFR & GFRAA in patients over 70 years has not been determined. Clinical correlation is essential. Serum or plasma urea nitroge n measurement (mass/volume)Ordered By: Sean Palacios on 08-06-2023 Urea nitrogen [Mass/Vol] 31 mg/dL 7-18 [facility] Squamous epithelial cells de tection in urine sediment by light microscopyOrdered By: Sean Palacios on 08-06-2023 Epithelial cells.squamous LM Ql (Urine sed) 0-5 SEEN /hpf 5-10 [facility] Thin prep Papanicolaou smear with manual screeningOrdered By: Sean Palacios on 08-06-2023 Thin prep Papanicolaou smear with manual screening 3.3 g/dL 3.2-5.0 [facility] Thin prep Papanicolaou smear with manual screening 19 U/L 15-37 [facility] Thin prep Papanicolaou smear with manual screening 9 5-15 [facility] Urine blood detectionOrdered By: Sean Palacios on 08-06-2023 RBC Ql (U) Negative Negative [facility] Urine clarityOrdered By: Rhiannon Palacios on 08-06-2023 Clarity (U) Clear Clear [facility] Urine color determinationOrd ered By: Sean Palacios on 08-06-2023 Color (U) Yellow Yellow [facility] Urine glucose detectionOrder ed By: Sean Palacios on 08-06-2023 Glucose Ql (U) Normal mg/dl Normal [facility] Urine leukocyte esterase det ection by dipstickOrdered By: Sean Palacios on 08-06-2023 Leukocyte esterase Test strip Ql (U) 25 /ul Negative [facility] Urine pHOrdered By: Sean hester on 08-06-2023 pH (U) 6.0 [pH] 5.0 - 8.0 [facility] Urine sediment bacteria coun t by microscopy (number/high power field)Ordered By: Sean Palacios on 08-06-2023 Bacteria LM.HPF (Urine sed) [#/Area] 0 /[HPF] None Seen [facility] Urine specific gravity measu rementOrdered By: Sean Palacios on 08-06-2023 Specific gravity (U) [Rel density] 1.015 1.002-1.03 0 [facility] Urine urobilinogen measureme ntOrdered By: Sean Palacios on 08-06-2023 Urobilinogen Ql (U) Normal mg/dl Normal [facility] Basophil percentageOrdered B y: Pavan Raymond on 08-04-2023 Chloride [Moles/Vol] 105 mmol/L 98-107 [facility] Glucose [Mass/Vol] 107 mg/dL 74-106 [facility] Comment on above: Fasting Glucose resu lt from 100 to 125 mg/dL suggests IMPAIRED HOMEOSTASIS per A.D.A. criteria. Potassium [Moles/Vol] 4.1 mmol/L 3.5-5.1 [facility] Sodium [Moles/Vol] 136 mmol/L 136-145 [facility] Laboratory - Chemistry and C hemistry - challengeOrdered By: Pavan Raymond on 08-04-2023 CO2 [Moles/Vol] 25.0 mmol/L 21.0-32.0 [facility] Urea nitrogen/Creatinine [Mass ratio] 25.2 mg/mg 10-20 [facility] No Panel InformationOrdered By: Pavan Raymond on 08-04-2023 Estimated GFR (MDRD) Amer 56 mL/min >60 [facility] Comment on above: GFR Calc Estimated GFR (MDRD) Non-Af Amer 46 mL/min >60 [facility] Comment on above: Non- GFR Calc Serum or plasma calcium kj urement (mass/volume)Ordered By: Pavan Raymond on 08-04-2023 Calcium [Mass/Vol] 9.5 mg/dL 8.5-10.1 [facility] Serum or plasma creatinine m easurement (mass/volume)Ordered By: Pavan Raymond on 08-04-2023 Creatinine [Mass/Vol] 1.19 mg/dL 0.55-1.02 [facility] Comment on above: The validity of the calculated GFR & GFRAA in patients over 70 years has not been determined. Clinical correlation is essential. Serum or plasma urea nitroge n measurement (mass/volume)Ordered By: Pavan Raymond on 08-04-2023 Urea nitrogen [Mass/Vol] 30 mg/dL 7-18 [facility] Thin prep Papanicolaou smear with manual screeningOrdered By: Pavan Raymond on 08-04-2023 Thin prep Papanicolaou smear with manual screening 6 5-15 [facility] Absolute lymphocyte countOrd ered By: Pavan Raymond on 07-11-2023 Lymphocytes Auto (Unsp spec) [#/Vol] 1.31 10*3/uL 0.83-4.51 [facility] Automated lymphocyte count a s percentage of total leukocytesOrdered By: Pavan Raymond on 07-11-2023 Lymphocytes/100 WBC Auto (Unsp spec) 18.7 % 19-41 [facility] Basophil percentageOrdered B y: Pavan Raymond on 07-11-2023 Basophils/100 WBC (Bld) 0.6 % 0-1 [facility] Bilirubin [Mass/Vol] 0.30 mg/dL 0.20-1.00 [facility] Comment on above: For patients on eltr ombopag therapy, use of Dimension [place] TBIL is not recommended. Chloride [Moles/Vol] 111 mmol/L 98-107 [facility] Cholesterol [Mass/Vol] 165 mg/dL <200 [facility] Comment on above: <200 mg/dL Desirable 200-240 mg/dL Borderline >240 mg/dL High Risk Eosinophils/100 WBC (Bld) 4.0 % 0-5 [facility] Glucose [Mass/Vol] 126 mg/dL 74-106 [facility] Comment on above: Fasting Glucose resu lt greater than or equal to 126 mg/dL suggests DIABETES MELLITUS per A.D.A. criteria. Hemoglobin (Bld) [Mass/Vol] 10.4 g/dL 12.0-15.0 [facility] Monocytes/100 WBC (Bld) 7.4 % 0-10 [facility] Neutrophils (Bld) [#/Vol] 4.8 10*3/uL 2.0-7.7 [facility] Neutrophils/100 WBC (Bld) 68.9 % 47-70 [facility] Potassium [Moles/Vol] 4.2 mmol/L 3.5-5.1 [facility] Protein [Mass/Vol] 6.9 g/dL 6.4-8.2 [facility] Sodium [Moles/Vol] 141 mmol/L 136-145 [facility] Triglyceride [Mass/Vol] 90 mg/dL <199 [facility] Comment on above: The drugs N-Acetylcy steine and Metamizole may falsely depress this assay.Serum Triglycerides Reference Interval Normal <150 mg/dL Borderline high 150 - 199 mg/dL High 200 - 499 mg/dL Very High > or = 500 mg/dL WBC (Bld) [#/Vol] 7.0 10*3/uL 4.4-11.0 [facility] Determination of erythrocyte mean corpuscular volume (MCV)Ordered By: Pavan Raymond on 07-11-2023 MCV (RBC) [Entitic vol] 90.5 fL 81-99 [facility] Erythrocyte distribution wid th ratioOrdered By: Pavan Raymond on 07-11-2023 Erythrocyte distribution width (RBC) [Ratio] 15.3 % 11.6-14.6 [facility] Erythrocyte distribution wid th standard deviationOrdered By: Pavan Raymond on 07-11-2023 Erythrocyte distribution width (RBC) [Entitic vol] 50.3 fL 35.1-43.9 [facility] Hematocrit Auto (Bld) [Volum e fraction]Ordered By: Pavan Raymond on 07-11-2023 Hematocrit (Bld) [Volume fraction] 35.3 % 37-47 [facility] Immature granulocytes/100 WB C Auto (Bld)Ordered By: Pavan Raymond on 07-11-2023 Immature granulocytes/100 WBC (Bld) 0.400 % 0.0-0.9 [facility] Comment on above: IG% - Immature Granu locytes (promyelocytes, myelocytes and metamyelocytes) > 1% indicates that a LEFT SHIFT is Present. Laboratory - Chemistry and C hemistry - challengeOrdered By: Pavan Raymond on 07-11-2023 Albumin/Globulin [Mass ratio] 1.0 {ratio} 0.9-2.4 [facility] ALP [Catalytic activity/Vol] 43 U/L 45-117 [facility] ALT [Catalytic activity/Vol] 20 U/L 13-56 [facility] Cholesterol in HDL [Mass/Vol] 62 mg/dL >40 [facility] Comment on above: The drugs N-Acetylcy steine and Metamizole may falsely depress this assay. Reference Range HDL <40 mg/dL Low HDL Cholesterol HDL >or= 60 mg/dL High HDL Cholesterol Cholesterol in LDL [Mass/Vol] 85 mg/dL 0-130 [facility] CO2 [Moles/Vol] 25.0 mmol/L 21.0-32.0 [facility] Globulin (S) [Mass/Vol] 3.5 g/dL 2.2-4.2 [facility] Urea nitrogen/Creatinine [Mass ratio] 18.0 mg/mg 10-20 [facility] Laboratory - Hematology and Cell countsOrdered By: Pavan Raymond on 07-11-2023 MCH (RBC) [Entitic mass] 26.7 pg 27.0-32.0 [facility] MCHC (RBC) [Mass/Vol] 29.5 g/dL 32-36 [facility] Nucleated RBC/100 WBC (Bld) [Ratio] 0 % 0-5 [facility] Platelet mean volume (Bld) [Entitic vol] 9.6 fL 6.2-12.0 [facility] Platelets (Bld) [#/Vol] 251 10*3/uL 150-450 [facility] No Panel InformationOrdered By: Pavan Raymond on 07-11-2023 Estimated GFR (MDRD) Amer 49 mL/min >60 [facility] Comment on above: GFR Calc Estimated GFR (MDRD) Non-Af Amer 41 mL/min >60 [facility] Comment on above: Non- GFR Calc VLDL Cholesterol 18 mg/dL 5-40 [facility] RBC Auto (Bld) [#/Vol]Ordere d By: Pavan Raymond on 07-11-2023 RBC (Bld) [#/Vol] 3.90 10*6/uL 4.2-5.4 [facility] Serum or plasma calcium kj urement (mass/volume)Ordered By: Pavan Raymond on 07-11-2023 Calcium [Mass/Vol] 9.7 mg/dL 8.5-10.1 [facility] Serum or plasma creatinine m easurement (mass/volume)Ordered By: Pavan Raymond on 07-11-2023 Creatinine [Mass/Vol] 1.33 mg/dL 0.55-1.02 [facility] Comment on above: The validity of the calculated GFR & GFRAA in patients over 70 years has not been determined. Clinical correlation is essential. Serum or plasma urea nitroge n measurement (mass/volume)Ordered By: Pavan Raymond on 07-11-2023 Urea nitrogen [Mass/Vol] 24 mg/dL 7-18 [facility] Thin prep Papanicolaou smear with manual screeningOrdered By: Pavan Raymond on 07-11-2023 Thin prep Papanicolaou smear with manual screening 3.4 g/dL 3.2-5.0 [facility] Thin prep Papanicolaou smear with manual screening 20 U/L 15-37 [facility] Thin prep Papanicolaou smear with manual screening 5 5-15 [facility] Absolute lymphocyte countOrd ered By: Nella Gomes on 04-13-2023 Lymphocytes Auto (Unsp spec) [#/Vol] 0.80 10*3/uL 0.83-4.51 [facility] Basophil percentageOrdered B y: Nella Gomes on 04-13-2023 Basophils/100 WBC (Bld) 0.1 % 0-1 [facility] Chloride [Moles/Vol] 108 mmol/L 98-107 [facility] Eosinophils/100 WBC (Bld) 3.8 % 0-5 [facility] Glucose [Mass/Vol] 121 mg/dL 74-106 [facility] Comment on above: Fasting Glucose resu lt from 100 to 125 mg/dL suggests IMPAIRED HOMEOSTASIS per A.D.A. criteria. Neutrophils (Bld) [#/Vol] 5.5 10*3/uL 2.0-7.7 [facility] Neutrophils/100 WBC (Bld) 77.2 % 47-70 [facility] Potassium [Moles/Vol] 3.5 mmol/L 3.5-5.1 [facility] Sodium [Moles/Vol] 140 mmol/L 136-145 [facility] WBC (Bld) [#/Vol] 7.1 10*3/uL 4.4-11.0 [facility] Blood erythrocytes count (nu mber/volume)Ordered By: Nella Gomes on 04-13-2023 RBC (Bld) [#/Vol] 3.88 10*6/uL 4.2-5.4 [facility] Blood hemoglobin measurement (mass/volume)Ordered By: Nella Gomes on 04-13-2023 Hemoglobin (Bld) [Mass/Vol] 10.6 g/dL 12.0-15.0 [facility] Blood lymphocytes/100 leukoc ytesOrdered By: Nella Gomes on 04-13-2023 Lymphocytes/100 WBC (Bld) 11.2 % 19-41 [facility] Blood monocytes/100 leukocyt esOrdered By: Nella Gomes on 04-13-2023 Monocytes/100 WBC (Bld) 7.4 % 0-10 [facility] Blood platelet mean volumeOr dered By: Nella Gomes on 04-13-2023 Platelet mean volume (Bld) [Entitic vol] 9.2 fL 6.2-12.0 [facility] Determination of erythrocyte mean corpuscular volume (MCV)Ordered By: Nella Gomes on 04-13-2023 MCV (RBC) [Entitic vol] 88.7 fL 81-99 [facility] Hematocrit Auto (Bld) [Volum e fraction]Ordered By: Nella Gomes on 04-13-2023 Hematocrit (Bld) [Volume fraction] 34.4 % 37-47 [facility] Laboratory - Chemistry and C hemistry - challengeOrdered By: Nella Gomes on 04-13-2023 CO2 [Moles/Vol] 30.0 mmol/L 21.0-32.0 [facility] Urea nitrogen/Creatinine [Mass ratio] 12.1 mg/mg 10-20 [facility] Laboratory - Hematology and Cell countsOrdered By: Nella Gomes on 04-13-2023 Erythrocyte distribution width (RBC) [Entitic vol] 53.9 fL 35.1-43.9 [facility] Erythrocyte distribution width (RBC) [Ratio] 16.5 % 11.6-14.6 [facility] Immature granulocytes/100 WBC (Bld) 0.300 % 0.0-0.9 [facility] Comment on above: IG% - Immature Granu locytes (promyelocytes, myelocytes and metamyelocytes) > 1% indicates that a LEFT SHIFT is Present. MCH (RBC) [Entitic mass] 27.3 pg 27.0-32.0 [facility] Nucleated RBC/100 WBC (Bld) [Ratio] 0 % 0-5 [facility] MCHC Auto (RBC) [Mass/Vol]Or dered By: Nella Gomes on 04-13-2023 MCHC (RBC) [Mass/Vol] 30.8 g/dL 32-36 [facility] No Panel InformationOrdered By: Nella Gomes on 04-13-2023 Estimated Creatinine Clearance Calc 34.65 ml/min [facility] Estimated GFR (MDRD) Amer 69 mL/min >60 [facility] Comment on above: GFR Calc Estimated GFR (MDRD) Non-Af Amer 57 mL/min >60 [facility] Comment on above: Non- GFR Calc Platelets bldOrdered By: Azalia Gomes on 04-13-2023 Platelets (Bld) [#/Vol] 160 10*3/uL 150-450 [facility] Serum or plasma calcium kj urement (mass/volume)Ordered By: Nella Gomes on 04-13-2023 Calcium [Mass/Vol] 8.9 mg/dL 8.5-10.1 [facility] Serum or plasma creatinine m easurement (mass/volume)Ordered By: Nella Gomes on 04-13-2023 Creatinine [Mass/Vol] 0.99 mg/dL 0.55-1.02 [facility] Comment on above: The validity of the calculated GFR & GFRAA in patients over 70 years has not been determined. Clinical correlation is essential. Serum or plasma urea nitroge n measurement (mass/volume)Ordered By: Nella Gomes on 04-13-2023 Urea nitrogen [Mass/Vol] 12 mg/dL 7-18 [facility] Thin prep Papanicolaou smear with manual screeningOrdered By: Nella Gomes on 04-13-2023 Thin prep Papanicolaou smear with manual screening 2 5-15 [facility] Absolute lymphocyte countOrd ered By: Kirill Johansen on 04-12-2023 Lymphocytes Auto (Unsp spec) [#/Vol] 0.34 10*3/uL 0.83-4.51 [facility] Basophil percentageOrdered B y: Kirill Johansen on 04-12-2023 Basophil percentage 0 SEEN /hpf 0-5 [facility] Basophils/100 WBC (Bld) 0.1 % 0-1 [facility] Chloride [Moles/Vol] 110 mmol/L 98-107 [facility] Eosinophils/100 WBC (Bld) 1.8 % 0-5 [facility] Glucose [Mass/Vol] 154 mg/dL 74-106 [facility] Comment on above: Fasting Glucose resu lt greater than or equal to 126 mg/dL suggests DIABETES MELLITUS per A.D.A. criteria. Neutrophils (Bld) [#/Vol] 12.7 10*3/uL 2.0-7.7 [facility] Neutrophils/100 WBC (Bld) 90.4 % 47-70 [facility] Potassium [Moles/Vol] 3.8 mmol/L 3.5-5.1 [facility] Sodium [Moles/Vol] 139 mmol/L 136-145 [facility] WBC (Bld) [#/Vol] 14.0 10*3/uL 4.4-11.0 [facility] Bilirubin Test strip Ql (U)O rdered By: Kirill Johansen on 04-12-2023 Bilirubin Ql (U) Negative Negative [facility] Blood erythrocytes count (nu mber/volume)Ordered By: Kirill Johansen on 04-12-2023 RBC (Bld) [#/Vol] 4.24 10*6/uL 4.2-5.4 [facility] Blood hemoglobin measurement (mass/volume)Ordered By: Kirill Johansen on 04-12-2023 Hemoglobin (Bld) [Mass/Vol] 11.5 g/dL 12.0-15.0 [facility] Blood lymphocytes/100 leukoc ytesOrdered By: Kirill Johansen on 04-12-2023 Lymphocytes/100 WBC (Bld) 2.4 % 19-41 [facility] Blood manual differential co mment interpretation (narrative result)Ordered By: Kirill Johansen on 04-12-2023 Manual differential comment Parth (Bld) [Interp] SCANNED [facility] Blood monocytes/100 leukocyt esOrdered By: Kirill Johansen on 04-12-2023 Monocytes/100 WBC (Bld) 4.8 % 0-10 [facility] Blood platelet mean volumeOr dered By: Kirill Johansen on 04-12-2023 Platelet mean volume (Bld) [Entitic vol] 8.7 fL 6.2-12.0 [facility] Determination of erythrocyte mean corpuscular volume (MCV)Ordered By: Kirill Johansen on 04-12-2023 MCV (RBC) [Entitic vol] 87.7 fL 81-99 [facility] Hematocrit Auto (Bld) [Volum e fraction]Ordered By: Kirill Johansen on 04-12-2023 Hematocrit (Bld) [Volume fraction] 37.2 % 37-47 [facility] INR in Blood by Coagulation assayOrdered By: Kirill Johansen on 04-12-2023 INR Coag (Bld) [Relative time] 1.0 {INR} [facility] Ketones Test strip Ql (U)Ord ered By: Kirill Johansen on 04-12-2023 Ketones Ql (U) Negative Negative [facility] Laboratory - Chemistry and C hemistry - challengeOrdered By: Kirill Johansen on 04-12-2023 CO2 [Moles/Vol] 24.0 mmol/L 21.0-32.0 [facility] Urea nitrogen/Creatinine [Mass ratio] 16.3 mg/mg 10-20 [facility] Laboratory - Chemistry and C hemistry - challengeOrdered By: Nella Gomes on 04-12-2023 Natriuretic peptide B (Bld) [Mass/Vol] 230.2 pg/mL 0-100 [facility] Laboratory - CoagulationOrde red By: Kirill Johansen on 04-12-2023 aPTT Coag (Bld) [Time] 41.2 s 24.1-36.2 [facility] PT Coag (PPP) [Time] 12.9 s 11.7-14.9 [facility] Laboratory - Hematology and Cell countsOrdered By: Kirill Johansen on 04-12-2023 Erythrocyte distribution width (RBC) [Entitic vol] 52.5 fL 35.1-43.9 [facility] Erythrocyte distribution width (RBC) [Ratio] 16.3 % 11.6-14.6 [facility] Immature granulocytes/100 WBC (Bld) 0.500 % 0.0-0.9 [facility] Comment on above: IG% - Immature Granu locytes (promyelocytes, myelocytes and metamyelocytes) > 1% indicates that a LEFT SHIFT is Present. MCH (RBC) [Entitic mass] 27.1 pg 27.0-32.0 [facility] Nucleated RBC/100 WBC (Bld) [Ratio] 0 % 0-5 [facility] Laboratory - Microbiology an d Antimicrobial susceptibilityOrdered By: Kirill Johansen on 04-12-2023 SARS-CoV-2 (COVID-19) RNA EVY+probe Ql (Unsp spec) [facility] SARS-CoV-2 (COVID-19) RNA EVY+probe Ql (Unsp spec) [facility] MCHC Auto (RBC) [Mass/Vol]Or dered By: Kirill Johansen on 04-12-2023 MCHC (RBC) [Mass/Vol] 30.9 g/dL 32-36 [facility] Mucus LM Ql (Urine sed)Order ed By: Kirill Johansen on 04-12-2023 Mucus Ql (Urine sed) 0 SEEN /hpf [facility] Nitrite Test strip Ql (U)Ord ered By: Kirill Johansen on 04-12-2023 Nitrite Ql (U) Negative Negative [facility] No Panel InformationOrdered By: Kirill Johansen on 04-12-2023 D-Dimer Quantitative (PE/DVT) < 0.27 FEU/ug/m 0.27-0.49 [facility] Comment on above: NORMAL D-Dimer level (<0.50) indicates no DVT or PE. Estimated Creatinine Clearance Calc 37.29 ml/min [facility] Estimated GFR (MDRD) Amer 75 mL/min >60 [facility] Estimated GFR (MDRD) Non-Af Amer 62 mL/min >60 [facility] Platelets bldOrdered By: Brayden Johansen on 04-12-2023 Platelets (Bld) [#/Vol] 168 10*3/uL 150-450 [facility] Protein Test strip Ql (U)Ord ered By: Kirill Johansen on 04-12-2023 Protein Ql (U) 30 mg/dl Negative [facility] Serum or plasma calcium kj urement (mass/volume)Ordered By: Kirill Johansen on 04-12-2023 Calcium [Mass/Vol] 9.2 mg/dL 8.5-10.1 [facility] Serum or plasma creatinine m easurement (mass/volume)Ordered By: Kirill Johansen on 04-12-2023 Creatinine [Mass/Vol] 0.92 mg/dL 0.55-1.02 [facility] Comment on above: The validity of the calculated GFR & GFRAA in patients over 70 years has not been determined. Clinical correlation is essential. Serum or plasma urea nitroge n measurement (mass/volume)Ordered By: Kirill Johansen on 04-12-2023 Urea nitrogen [Mass/Vol] 15 mg/dL 7-18 [facility] Squamous epithelial cells de tection in urine sediment by light microscopyOrdered By: Kirill Johansen on 04-12-2023 Epithelial cells.squamous LM Ql (Urine sed) 0 SEEN /hpf 5-10 [facility] Thin prep Papanicolaou smear with manual screeningOrdered By: Kirill Johansen on 04-12-2023 Thin prep Papanicolaou smear with manual screening 5 5-15 [facility] Urine blood detectionOrdered By: Kirill Johansen on 04-12-2023 RBC Ql (U) Negative Negative [facility] RBC Ql (U) 0 SEEN /hpf 0-5 [facility] Urine clarityOrdered By: Brayden Johansen on 04-12-2023 Clarity (U) Clear Clear [facility] Urine color determinationOrd ered By: Kirill Johansen on 04-12-2023 Color (U) Yellow Yellow [facility] Urine glucose detectionOrder ed By: Kirill Johansen on 04-12-2023 Glucose Ql (U) Normal mg/dl Normal [facility] Urine leukocyte esterase det ection by dipstickOrdered By: Kirill Johansen on 04-12-2023 Leukocyte esterase Test strip Ql (U) Negative Negative [facility] Urine pHOrdered By: Kirill Johansen on 04-12-2023 pH (U) 6.5 [pH] 5.0 - 8.0 [facility] Urine sediment bacteria coun t by microscopy (number/high power field)Ordered By: Kirill Johansen on 04-12-2023 Bacteria LM.HPF (Urine sed) [#/Area] 0 /[HPF] None Seen [facility] Urine specific gravity measu rementOrdered By: Kirill Johansen on 04-12-2023 Specific gravity (U) [Rel density] 1.010 1.002-1.03 0 [facility] Urobilinogen Auto test strip Ql (U)Ordered By: Kirill Johansen on 04-12-2023 Urobilinogen Ql (U) Normal mg/dl Normal [facility] Culture, urineOrdered By: Ra gwendolyn Gonzales on 04-10-2023 Bacteria identified Cx Nom (U) Staphylococcus haemolyticus [facility] Bacteria identified Cx Nom (U) Staphylococcus haemolyticus [facility] Basophil percentageOrdered B y: James Bush on 04-03-2023 Basophil percentage >100 SEEN /hpf 0-5 [facility] Bilirubin Test strip Ql (U)O rdered By: James Bush on 04-03-2023 Bilirubin Ql (U) Negative Negative [facility] Culture, urineOrdered By: St viry Bush on 04-03-2023 Bacteria identified Cx Nom (U) Escherichia coli [facility] Ketones Test strip Ql (U)Ord ered By: James Bush on 04-03-2023 Ketones Ql (U) Negative Negative [facility] Laboratory - Chemistry and C hemistry - challengeon 04-03-2023 Bilirubin Ql (U) Negative [facility] Glucose Ql (U) Negative [facility] Ketones Ql (U) Trace (5) [facility] pH (U) 6.0 [pH] [facility] Specific gravity (U) [Rel density] 1.015 [facility] Urobilinogen (U) [Mass/Vol] Negative [facility] Laboratory - Hematology and Cell countson 04-03-2023 Hemoglobin Ql (U) Trace [facility] Laboratory - Specimen inform ationon 04-03-2023 Clarity (U) Cloudy [facility] Color (U) Johnna [facility] Laboratory - Urinalysison Nitrite Ql (U) Positive [facility] Protein Ql (U) Negative [facility] Mucus LM Ql (Urine sed)Order ed By: James Bush on 04-03-2023 Mucus Ql (Urine sed) 0 SEEN /hpf [facility] Nitrite Test strip Ql (U)Ord ered By: James Bush on 04-03-2023 Nitrite Ql (U) Positive Negative [facility] No Panel Informationon 04-03 Urine Leukocytes Positive [facility] Urine Non-Hemolyzed Blood Non-Hemolyzed [facility] Protein Test strip Ql (U)Ord ered By: James Bush on 04-03-2023 Protein Ql (U) 30 mg/dl Negative [facility] Squamous epithelial cells de tection in urine sediment by light microscopyOrdered By: James Bush on 04-03-2023 Epithelial cells.squamous LM Ql (Urine sed) 0 SEEN /hpf 5-10 [facility] Urine blood detectionOrdered By: James Bush on 04-03-2023 RBC Ql (U) 25 /ul Negative [facility] RBC Ql (U) 0-5 SEEN /hpf 0-5 [facility] Urine clarityOrdered By: Maksim Bush on 04-03-2023 Clarity (U) Cloudy Clear [facility] Urine color determinationOrd ered By: James Bush on 04-03-2023 Color (U) Yellow Yellow [facility] Urine glucose detectionOrder ed By: James Bush on 04-03-2023 Glucose Ql (U) Normal mg/dl Normal [facility] Urine leukocyte esterase det ection by dipstickOrdered By: James Bush on 04-03-2023 Leukocyte esterase Test strip Ql (U) 500 /ul Negative [facility] Urine pHOrdered By: James gage on 04-03-2023 pH (U) 6.0 [pH] 5.0 - 8.0 [facility] Urine sediment bacteria coun t by microscopy (number/high power field)Ordered By: James Bush on 04-03-2023 Bacteria LM.HPF (Urine sed) [#/Area] 2 /[HPF] None Seen [facility] Urine specific gravity measu rementOrdered By: James Bush on 04-03-2023 Specific gravity (U) [Rel density] 1.020 1.002-1.03 0 [facility] Urobilinogen Auto test strip Ql (U)Ordered By: James Bush on 04-03-2023 Urobilinogen Ql (U) Normal mg/dl Normal [facility] Laboratory - Microbiology an d Antimicrobial susceptibilityOrdered By: Pavan Raymond on 03-22-2023 SARS-CoV-2 (COVID-19) RNA EVY+probe Ql (Unsp spec) [facility] Culture, urineOrdered By: Allegra almazan Joy on 01-31-2023 Bacteria identified Cx Nom (U) Presumptive E. coli [facility] Culture, urineOrdered By: Allegra almazan Joy on 01-30-2023 Bacteria identified Cx Nom (U) Presumptive E. coli [facility] Basophil percentageOrdered B y: Gracie Salamanca on 01-14-2023 Basophil percentage 25-50 SEEN /hpf 0-5 [facility] Bilirubin Test strip Ql (U)O rdered By: Gracie Salamanca on 01-14-2023 Bilirubin Ql (U) Negative Negative [facility] Culture, urineOrdered By: Becca Salamanca on 01-14-2023 Bacteria identified Cx Nom (U) Escherichia coli [facility] Bacteria identified Cx Nom (U) Escherichia coli [facility] Ketones Test strip Ql (U)Ord ered By: Gracie Salamanca on 01-14-2023 Ketones Ql (U) Negative Negative [facility] Mucus LM Ql (Urine sed)Order ed By: Gracie Salamanca on 01-14-2023 Mucus Ql (Urine sed) 0 SEEN /hpf [facility] Nitrite Test strip Ql (U)Ord ered By: Gracie Salamanca on 01-14-2023 Nitrite Ql (U) Positive Negative [facility] Protein Test strip Ql (U)Ord ered By: Gracie Salamanca on 01-14-2023 Protein Ql (U) 30 mg/dl Negative [facility] Squamous epithelial cells de tection in urine sediment by light microscopyOrdered By: Gracie Salamanca on 01-14-2023 Epithelial cells.squamous LM Ql (Urine sed) 0 SEEN /hpf 5-10 [facility] Urine blood detectionOrdered By: Gracie Salamanca on 01-14-2023 RBC Ql (U) 10 /ul Negative [facility] RBC Ql (U) 0 SEEN /hpf 0-5 [facility] Urine clarityOrdered By: Priyank Salamanca on 01-14-2023 Clarity (U) Clear Clear [facility] Urine color determinationOrd ered By: Gracie Salamanca on 01-14-2023 Color (U) Yellow Yellow [facility] Urine glucose detectionOrder ed By: Gracie Salamanca on 01-14-2023 Glucose Ql (U) Normal mg/dl Normal [facility] Urine leukocyte esterase det ection by dipstickOrdered By: Gracie Salamanca on 01-14-2023 Leukocyte esterase Test strip Ql (U) 500 /ul Negative [facility] Urine pHOrdered By: Martinez Salamanca on 01-14-2023 pH (U) 6.5 [pH] 5.0 - 8.0 [facility] Urine sediment bacteria coun t by microscopy (number/high power field)Ordered By: Gracie Salamanca on 01-14-2023 Bacteria LM.HPF (Urine sed) [#/Area] 2 /[HPF] None Seen [facility] Urine specific gravity measu rementOrdered By: Gracie Salamanca on 01-14-2023 Specific gravity (U) [Rel density] 1.010 1.002-1.03 0 [facility] Urobilinogen Auto test strip Ql (U)Ordered By: Gracie Salamanca on 01-14-2023 Urobilinogen Ql (U) Normal mg/dl Normal [facility] Basophil percentageOrdered B y: Luana Dudley on 11-22-2022 Chloride [Moles/Vol] 109 mmol/L 98-107 [facility] Glucose [Mass/Vol] 160 mg/dL 74-106 [facility] Comment on above: Fasting Glucose resu lt greater than or equal to 126 mg/dL suggests DIABETES MELLITUS per A.D.A. criteria. Potassium [Moles/Vol] 4.0 mmol/L 3.5-5.1 [facility] Sodium [Moles/Vol] 139 mmol/L 136-145 [facility] Laboratory - Chemistry and C hemistry - challengeOrdered By: Luana Dudley on 11-22-2022 CO2 [Moles/Vol] 24.0 mmol/L 21.0-32.0 [facility] Urea nitrogen/Creatinine [Mass ratio] 21.3 mg/mg 10-20 [facility] No Panel InformationOrdered By: Luana Dudley on 11-22-2022 Estimated GFR (MDRD) Amer 62 mL/min >60 [facility] Comment on above: GFR Calc Estimated GFR (MDRD) Non-Af Amer 52 mL/min >60 [facility] Comment on above: Non- GFR Calc Serum or plasma calcium kj urement (mass/volume)Ordered By: Luana Dudley on 11-22-2022 Calcium [Mass/Vol] 9.5 mg/dL 8.5-10.1 [facility] Serum or plasma creatinine m easurement (mass/volume)Ordered By: Luana Dudley on 11-22-2022 Creatinine [Mass/Vol] 1.08 mg/dL 0.55-1.02 [facility] Comment on above: The validity of the calculated GFR & GFRAA in patients over 70 years has not been determined. Clinical correlation is essential. Serum or plasma urea nitroge n measurement (mass/volume)Ordered By: Luana Dudley on 11-22-2022 Urea nitrogen [Mass/Vol] 23 mg/dL 7-18 [facility] Thin prep Papanicolaou smear with manual screeningOrdered By: Luana Dudley on 11-22-2022 Thin prep Papanicolaou smear with manual screening 6 5-15 [facility] Absolute lymphocyte countOrd ered By: Dr. Partida on 06-27-2022 Lymphocytes Auto (Unsp spec) [#/Vol] 1.60 10*3/uL 0.83-4.51 [facility] Basophil percentageOrdered B y: Dr. Partida on 06-27-2022 Basophils/100 WBC (Bld) 0.6 % 0-1 [facility] Bilirubin [Mass/Vol] 0.30 mg/dL 0.20-1.00 [facility] Comment on above: For patients on eltr ombopag therapy, use of Dimension [place] TBIL is not recommended. Chloride [Moles/Vol] 107 mmol/L 98-107 [facility] Eosinophils/100 WBC (Bld) 4.8 % 0-5 [facility] Glucose [Mass/Vol] 157 mg/dL 74-106 [facility] Comment on above: Fasting Glucose resu lt greater than or equal to 126 mg/dL suggests DIABETES MELLITUS per A.D.A. criteria. Neutrophils (Bld) [#/Vol] 6.5 10*3/uL 2.0-7.7 [facility] Neutrophils/100 WBC (Bld) 69.2 % 47-70 [facility] Potassium [Moles/Vol] 4.1 mmol/L 3.5-5.1 [facility] Protein [Mass/Vol] 7.3 g/dL 6.4-8.2 [facility] Sodium [Moles/Vol] 139 mmol/L 136-145 [facility] WBC (Bld) [#/Vol] 9.4 10*3/uL 4.4-11.0 [facility] Blood erythrocytes count (nu mber/volume)Ordered By: Dr. Partida on 06-27-2022 RBC (Bld) [#/Vol] 4.42 10*6/uL 4.2-5.4 [facility] Blood hemoglobin measurement (mass/volume)Ordered By: Dr. Partida on 06-27-2022 Hemoglobin (Bld) [Mass/Vol] 11.7 g/dL 12.0-15.0 [facility] Blood lymphocytes/100 leukoc ytesOrdered By: Dr. Partida on 06-27-2022 Lymphocytes/100 WBC (Bld) 17.1 % 19-41 [facility] Blood monocytes/100 leukocyt esOrdered By: Dr. Partida on 06-27-2022 Monocytes/100 WBC (Bld) 8.0 % 0-10 [facility] Blood platelet mean volumeOr dered By: Dr. Partida on 06-27-2022 Platelet mean volume (Bld) [Entitic vol] 9.6 fL 6.2-12.0 [facility] Determination of erythrocyte mean corpuscular volume (MCV)Ordered By: Dr. Partida on 06-27-2022 MCV (RBC) [Entitic vol] 86.7 fL 81-99 [facility] Hematocrit Auto (Bld) [Volum e fraction]Ordered By: Dr. Partida on 06-27-2022 Hematocrit (Bld) [Volume fraction] 38.3 % 37-47 [facility] Iron measurement (mass/mass) Ordered By: Dr. Partida on 06-27-2022 Iron (Unsp spec) [Mass/Mass] 40 ug/dL 50-170 [facility] Laboratory - Chemistry and C hemistry - challengeOrdered By: Dr. Partida on 06-27-2022 ALP [Catalytic activity/Vol] 63 U/L 45-117 [facility] ALT [Catalytic activity/Vol] 19 U/L 13-56 [facility] CO2 [Moles/Vol] 25.0 mmol/L 21.0-32.0 [facility] Cobalamin (Vitamin B12) [Mass/Vol] 298 pg/mL 211-911 [facility] Globulin (S) [Mass/Vol] 3.8 g/dL 2.2-4.2 [facility] Urea nitrogen/Creatinine [Mass ratio] 27.5 mg/mg 10-20 [facility] Laboratory - Hematology and Cell countsOrdered By: Dr. Partida on 06-27-2022 Erythrocyte distribution width (RBC) [Entitic vol] 45.2 fL 35.1-43.9 [facility] Erythrocyte distribution width (RBC) [Ratio] 14.2 % 11.6-14.6 [facility] Immature granulocytes/100 WBC (Bld) 0.300 % 0.0-0.9 [facility] Comment on above: IG% - Immature Granu locytes (promyelocytes, myelocytes and metamyelocytes) > 1% indicates that a LEFT SHIFT is Present. MCH (RBC) [Entitic mass] 26.5 pg 27.0-32.0 [facility] Nucleated RBC/100 WBC (Bld) [Ratio] 0 % 0-5 [facility] MCHC Auto (RBC) [Mass/Vol]Or dered By: Dr. Partida on 06-27-2022 MCHC (RBC) [Mass/Vol] 30.5 g/dL 32-36 [facility] No Panel InformationOrdered By: Dr. Partida on 06-27-2022 Estimated GFR (MDRD) Amer 67 mL/min >60 [facility] Comment on above: GFR Calc Estimated GFR (MDRD) Non-Af Amer 55 mL/min >60 [facility] Comment on above: Non- GFR Calc Vitamin D 25-Hydroxy 44.1 ng/mL [facility] Comment on above: Vitamin D 25(OH) Sta tus Range Deficiency <20 ng/mL (50nmol/L) Insufficiency 20 - 30 ng/mL (50 - 75 nmol/L) Sufficiency 30 - 100 ng/mL (75 - 250 nmol/L) Toxicity >100 ng/mL (>250 nmol/L) Platelets bldOrdered By: Dr. Partida on 06-27-2022 Platelets (Bld) [#/Vol] 265 10*3/uL 150-450 [facility] Serum or plasma albumin kj urement (mass/volume)Ordered By: Dr. Partida on 06-27-2022 Albumin [Mass/Vol] 3.5 g/dL 3.2-5.0 [facility] Serum or plasma albumin/glob ulin mass ratioOrdered By: Dr. Partida on 06-27-2022 Albumin/Globulin [Mass ratio] 0.9 {ratio} 0.9-2.4 [facility] Serum or plasma calcium kj urement (mass/volume)Ordered By: Dr. Partida on 06-27-2022 Calcium [Mass/Vol] 9.6 mg/dL 8.5-10.1 [facility] Serum or plasma creatinine m easurement (mass/volume)Ordered By: Dr. Partida on 06-27-2022 Creatinine [Mass/Vol] 1.02 mg/dL 0.55-1.02 [facility] Comment on above: The validity of the calculated GFR & GFRAA in patients over 70 years has not been determined. Clinical correlation is essential. Serum or plasma ferritin farida surement (mass/volume)Ordered By: Dr. Partida on 06-27-2022 Ferritin [Mass/Vol] 12 ng/mL 8-252 [facility] Serum or plasma urea nitroge n measurement (mass/volume)Ordered By: Dr. Partida on 06-27-2022 Urea nitrogen [Mass/Vol] 28 mg/dL 7-18 [facility] Serum or plasma uric acid me asurement (mass/volume)Ordered By: Dr. Partida on 06-27-2022 Urate [Mass/Vol] 8.6 mg/dL 2.6-6.0 [facility] Comment on above: The drugs N-Acetylcy steine and Metamizole may falsely depress this assay. Thin prep Papanicolaou smear with manual screeningOrdered By: Dr. Partida on 06-27-2022 Thin prep Papanicolaou smear with manual screening 24 U/L 15-37 [facility] Thin prep Papanicolaou smear with manual screening 7 5-15 [facility] Basophil percentageOrdered B y: Dr. Hamilton on 03-31-2022 Chloride [Moles/Vol] 105 mmol/L 98-107 [facility] Glucose [Mass/Vol] 165 mg/dL 74-106 [facility] Comment on above: Fasting Glucose resu lt greater than or equal to 126 mg/dL suggests DIABETES MELLITUS per A.D.A. criteria. Potassium [Moles/Vol] 4.3 mmol/L 3.5-5.1 [facility] Sodium [Moles/Vol] 135 mmol/L 136-145 [facility] WBC (Bld) [#/Vol] 12.8 10*3/uL 4.4-11.0 [facility] Blood erythrocytes count (nu mber/volume)Ordered By: Dr. Hamilton on 03-31-2022 RBC (Bld) [#/Vol] 3.76 10*6/uL 4.2-5.4 [facility] Blood hemoglobin measurement (mass/volume)Ordered By: Dr. Hamilton on 03-31-2022 Hemoglobin (Bld) [Mass/Vol] 10.7 g/dL 12.0-15.0 [facility] Blood platelet mean volumeOr dered By: Dr. Hamilton on 03-31-2022 Platelet mean volume (Bld) [Entitic vol] 9.3 fL 6.2-12.0 [facility] Determination of erythrocyte mean corpuscular volume (MCV)Ordered By: Dr. Hamilton on 03-31-2022 MCV (RBC) [Entitic vol] 89.6 fL 81-99 [facility] Hematocrit Auto (Bld) [Volum e fraction]Ordered By: Dr. Hamilton on 03-31-2022 Hematocrit (Bld) [Volume fraction] 33.7 % 37-47 [facility] Laboratory - Chemistry and C hemistry - challengeOrdered By: Dr. Hamilton on 03-31-2022 CO2 [Moles/Vol] 27.0 mmol/L 21.0-32.0 [facility] Urea nitrogen/Creatinine [Mass ratio] 18.3 mg/mg 10-20 [facility] Laboratory - Hematology and Cell countsOrdered By: Dr. Hamilton on 03-31-2022 Erythrocyte distribution width (RBC) [Entitic vol] 52.7 fL 35.1-43.9 [facility] Erythrocyte distribution width (RBC) [Ratio] 15.9 % 11.6-14.6 [facility] MCH (RBC) [Entitic mass] 28.5 pg 27.0-32.0 [facility] MCHC Auto (RBC) [Mass/Vol]Or dered By: Dr. Hamilton on 03-31-2022 MCHC (RBC) [Mass/Vol] 31.8 g/dL 32-36 [facility] No Panel InformationOrdered By: Dr. Hamilton on 03-31-2022 Estimated Creatinine Clearance Calc 40.60 ml/min [facility] Estimated GFR (MDRD) Amer 86 mL/min >60 [facility] Comment on above: GFR Calc Estimated GFR (MDRD) Non-Af Amer 71 mL/min >60 [facility] Comment on above: Non- GFR Calc Platelets bldOrdered By: Dr. Hamilton on 03-31-2022 Platelets (Bld) [#/Vol] 232 10*3/uL 150-450 [facility] Serum or plasma calcium kj urement (mass/volume)Ordered By: Dr. Hamilton on 03-31-2022 Calcium [Mass/Vol] 8.7 mg/dL 8.5-10.1 [facility] Serum or plasma creatinine m easurement (mass/volume)Ordered By: Dr. Hamilton on 03-31-2022 Creatinine [Mass/Vol] 0.82 mg/dL 0.55-1.02 [facility] Comment on above: The validity of the calculated GFR & GFRAA in patients over 70 years has not been determined. Clinical correlation is essential. Serum or plasma urea nitroge n measurement (mass/volume)Ordered By: Dr. Hamilton on 03-31-2022 Urea nitrogen [Mass/Vol] 15 mg/dL 7-18 [facility] Thin prep Papanicolaou smear with manual screeningOrdered By: Dr. Hamilton on 03-31-2022 Thin prep Papanicolaou smear with manual screening 3 5-15 [facility] Culture, urineOrdered By: Dr Jan Hamilton on 03-13-2022 Bacteria identified Cx Nom (U) Culture exhibits no growth. [facility] Absolute lymphocyte counton 02-24-2022 Lymphocytes Auto (Unsp spec) [#/Vol] 1.48 10*3/uL 0.83-4.51 [facility] Work Phone: Basophil percentageon 2021 Basophils/100 WBC (Bld) 0.6 % 0-1 [facility] Work Phone: Chloride [Moles/Vol] 104 mmol/L 98-107 [facility] Work Phone: Eosinophils/100 WBC (Bld) 3.5 % 0-5 [facility] Work Phone: Glucose [Mass/Vol] 98 mg/dL 74-106 [facility] Work Phone: Neutrophils (Bld) [#/Vol] 5.7 10*3/uL 2.0-7.7 [facility] Work Phone: Neutrophils/100 WBC (Bld) 66.8 % 47-70 [facility] Work Phone: Potassium [Moles/Vol] 4.0 mmol/L 3.5-5.1 [facility] Work Phone: Sodium [Moles/Vol] 139 mmol/L 136-145 [facility] Work Phone: WBC (Bld) [#/Vol] 8.6 10*3/uL 4.4-11.0 [facility] Work Phone: Blood erythrocytes count (nu mber/volume)on 02-24-2022 RBC (Bld) [#/Vol] 3.54 10*6/uL 4.2-5.4 [facility] Work Phone: Blood hemoglobin measurement (mass/volume)on 02-24-2022 Hemoglobin (Bld) [Mass/Vol] 9.4 g/dL 12.0-15.0 [facility] Work Phone: Blood lymphocytes/100 leukoc yteson 02-24-2022 Lymphocytes/100 WBC (Bld) 17.2 % 19-41 [facility] Work Phone: Blood monocytes/100 leukocyt eson 02-24-2022 Monocytes/100 WBC (Bld) 10.9 % 0-10 [facility] Work Phone: Blood platelet mean volumeon 02-24-2022 Platelet mean volume (Bld) [Entitic vol] 8.7 fL 6.2-12.0 [facility] Work Phone: Determination of erythrocyte mean corpuscular volume (MCV)on 02-24-2022 MCV (RBC) [Entitic vol] 86.7 fL 81-99 [facility] Work Phone: Hematocrit Auto (Bld) [Volum e fraction]on 02-24-2022 Hematocrit (Bld) [Volume fraction] 30.7 % 37-47 [facility] Work Phone: Laboratory - Chemistry and C hemistry - challengeon 02-24-2022 CO2 [Moles/Vol] 29.0 mmol/L 21.0-32.0 [facility] Work Phone: Urea nitrogen/Creatinine [Mass ratio] 18.5 mg/mg 10-20 [facility] Work Phone: Laboratory - Hematology and Cell countson 02-24-2022 Erythrocyte distribution width (RBC) [Entitic vol] 50.6 fL 35.1-43.9 [facility] Work Phone: Erythrocyte distribution width (RBC) [Ratio] 15.9 % 11.6-14.6 [facility] Work Phone: Immature granulocytes/100 WBC (Bld) 1.000 % 0.0-0.9 [facility] Work Phone: Comment on above: IG% - Immature Granu locytes (promyelocytes, myelocytes and metamyelocytes) > 1% indicates that a LEFT SHIFT is Present. MCH (RBC) [Entitic mass] 26.6 pg 27.0-32.0 [facility] Work Phone: Nucleated RBC/100 WBC (Bld) [Ratio] 0 % 0-5 [facility] Work Phone: MCHC Auto (RBC) [Mass/Vol]on 02-24-2022 MCHC (RBC) [Mass/Vol] 30.6 g/dL 32-36 [facility] Work Phone: No Panel Informationon 02-24 Estimated Creatinine Clearance Calc 34.90 ml/min [facility] Work Phone: Estimated GFR (MDRD) Amer 94 mL/min >60 [facility] Work Phone: Comment on above: GFR Calc Estimated GFR (MDRD) Non-Af Amer 78 mL/min >60 [facility] Work Phone: Comment on above: Non- GFR Calc Platelets bldon 02-24-2022 Platelets (Bld) [#/Vol] 457 10*3/uL 150-450 [facility] Work Phone: Serum or plasma calcium kj urement (mass/volume)on 02-24-2022 Calcium [Mass/Vol] 8.6 mg/dL 8.5-10.1 [facility] Work Phone: Serum or plasma creatinine m easurement (mass/volume)on 02-24-2022 Creatinine [Mass/Vol] 0.76 mg/dL 0.55-1.02 [facility] Work Phone: Comment on above: The validity of the calculated GFR & GFRAA in patients over 70 years has not been determined. Clinical correlation is essential. Serum or plasma urea nitroge n measurement (mass/volume)on 02-24-2022 Urea nitrogen [Mass/Vol] 14 mg/dL 7-18 [facility] Work Phone: Thin prep Papanicolaou smear with manual screeningon 02-24-2022 Thin prep Papanicolaou smear with manual screening 6 5-15 [facility] Work Phone: Basophil percentageon 2021 Basophil percentage >100 SEEN /hpf 0-5 [facility] Work Phone: Bilirubin Test strip Ql (U)o n 02-18-2022 Bilirubin Ql (U) Negative Negative [facility] Work Phone: Ketones Test strip Ql (U)on 02-18-2022 Ketones Ql (U) Negative Negative [facility] Work Phone: Mucus LM Ql (Urine sed)on Mucus Ql (Urine sed) 0 SEEN /hpf [facility] Work Phone: Nitrite Test strip Ql (U)on 02-18-2022 Nitrite Ql (U) Negative Negative [facility] Work Phone: Protein Test strip Ql (U)on 02-18-2022 Protein Ql (U) 100 mg/dl Negative [facility] Work Phone: Squamous epithelial cells de tection in urine sediment by light microscopyon 02-18-2022 Epithelial cells.squamous LM Ql (Urine sed) 10-25 SEEN /hpf 5-10 [facility] Work Phone: Urine blood detectionon RBC Ql (U) 250 /ul Negative [facility] Work Phone: RBC Ql (U) 25-50 SEEN /hpf 0-5 [facility] Work Phone: Urine clarityon 02-18-2022 Clarity (U) Cloudy Clear [facility] Work Phone: Urine color determinationon 02-18-2022 Color (U) Yellow Yellow [facility] Work Phone: Urine glucose detectionon Glucose Ql (U) Normal mg/dl Normal [facility] Work Phone: Urine leukocyte esterase det ection by dipstickon 02-18-2022 Leukocyte esterase Test strip Ql (U) 500 /ul Negative [facility] Work Phone: Urine pHon 02-18-2022 pH (U) 6.0 [pH] 5.0 - 8.0 [facility] Work Phone: Urine sediment bacteria coun t by microscopy (number/high power field)on 02-18-2022 Bacteria LM.HPF (Urine sed) [#/Area] 4 /[HPF] None Seen [facility] Work Phone: Urine specific gravity measu rementon 02-18-2022 Specific gravity (U) [Rel density] 1.015 1.002-1.03 0 [facility] Work Phone: Urobilinogen Auto test strip Ql (U)on 02-18-2022 Urobilinogen Ql (U) Normal mg/dl Normal [facility] Work Phone: Absolute lymphocyte counton 02-11-2022 Lymphocytes Auto (Unsp spec) [#/Vol] 0.74 10*3/uL 0.83-4.51 [facility] Work Phone: Basophil percentageon 2021 Basophils/100 WBC (Bld) 0.3 % 0-1 [facility] Work Phone: Eosinophils/100 WBC (Bld) 0.6 % 0-5 [facility] Work Phone: Neutrophils (Bld) [#/Vol] 9.5 10*3/uL 2.0-7.7 [facility] Work Phone: Neutrophils/100 WBC (Bld) 83.3 % 47-70 [facility] Work Phone: WBC (Bld) [#/Vol] 11.4 10*3/uL 4.4-11.0 [facility] Work Phone: Blood erythrocytes count (nu mber/volume)on 02-11-2022 RBC (Bld) [#/Vol] 3.29 10*6/uL 4.2-5.4 [facility] Work Phone: Blood hemoglobin measurement (mass/volume)on 02-11-2022 Hemoglobin (Bld) [Mass/Vol] 9.1 g/dL 12.0-15.0 [facility] Work Phone: Blood lymphocytes/100 leukoc yteson 02-11-2022 Lymphocytes/100 WBC (Bld) 6.5 % 19-41 [facility] Work Phone: Blood monocytes/100 leukocyt eson 02-11-2022 Monocytes/100 WBC (Bld) 8.7 % 0-10 [facility] Work Phone: Blood platelet mean volumeon 02-11-2022 Platelet mean volume (Bld) [Entitic vol] 9.3 fL 6.2-12.0 [facility] Work Phone: Determination of erythrocyte mean corpuscular volume (MCV)on 02-11-2022 MCV (RBC) [Entitic vol] 85.7 fL 81-99 [facility] Work Phone: Hematocrit Auto (Bld) [Volum e fraction]on 02-11-2022 Hematocrit (Bld) [Volume fraction] 28.2 % 37-47 [facility] Work Phone: Laboratory - Hematology and Cell countson 02-11-2022 Erythrocyte distribution width (RBC) [Entitic vol] 51.9 fL 35.1-43.9 [facility] Work Phone: Erythrocyte distribution width (RBC) [Ratio] 16.5 % 11.6-14.6 [facility] Work Phone: Immature granulocytes/100 WBC (Bld) 0.600 % 0.0-0.9 [facility] Work Phone: Comment on above: IG% - Immature Granu locytes (promyelocytes, myelocytes and metamyelocytes) > 1% indicates that a LEFT SHIFT is Present. MCH (RBC) [Entitic mass] 27.7 pg 27.0-32.0 [facility] Work Phone: Nucleated RBC/100 WBC (Bld) [Ratio] 0 % 0-5 [facility] Work Phone: MCHC Auto (RBC) [Mass/Vol]on 02-11-2022 MCHC (RBC) [Mass/Vol] 32.3 g/dL 32-36 [facility] Work Phone: Platelets bldon 02-11-2022 Platelets (Bld) [#/Vol] 479 10*3/uL 150-450 [facility] Work Phone: Atypical perinuclear antineu trophil cytoplasmic antibodies measurementon 02-10-2022 Neutrophil cytoplasmic Ab.perinuclear.atypica l IF (S) [Titer] <1:20 titer Neg:<1:20 [facility] Work Phone: Comment on above: The atypical pANCA p attern has been observed in asignificant percentage of patients with ulcerative colitis,primary sclerosing cholangitis and autoimmune hepatitis.Performed at: [facility] [id number] Director: Gordy Page PhD, Phone: [phone] Basophil percentageon 2021 Basophil percentage 1.2 AI 0.0-0.9 [facility] Work Phone: Basophil percentage 0.3 AI 0.0-0.9 [facility] Work Phone: Chloride [Moles/Vol] 109 mmol/L 98-107 [facility] Work Phone: Glucose [Mass/Vol] 154 mg/dL 74-106 [facility] Work Phone: Comment on above: Fasting Glucose resu lt greater than or equal to 126 mg/dL suggests DIABETES MELLITUS per A.D.A. criteria. Potassium [Moles/Vol] 4.0 mmol/L 3.5-5.1 [facility] Work Phone: Sodium [Moles/Vol] 139 mmol/L 136-145 [facility] Work Phone: Erythrocyte sedimentation ra mateo 02-10-2022 ESR (Bld) [Velocity] 96 mm/h 0-30 [facility] Work Phone: Laboratory - Chemistry and C hemistry - challengeon 02-10-2022 CO2 [Moles/Vol] 23.0 mmol/L 21.0-32.0 [facility] Work Phone: Urea nitrogen/Creatinine [Mass ratio] 15.7 mg/mg 10-20 [facility] Work Phone: No Panel Informationon 02-10 Centromere B Antibody <0.2 AI 0.0-0.9 [facility] Work Phone: LEMON GROWER Antibody <0.2 AI 0.0-0.9 [facility] Work Phone: Estimated Creatinine Clearance Calc 34.90 ml/min [facility] Work Phone: Estimated GFR (MDRD) Amer 103 mL/min >60 [facility] Work Phone: Comment on above: GFR Calc Estimated GFR (MDRD) Non-Af Amer 85 mL/min >60 [facility] Work Phone: Comment on above: Non- GFR Calc Serum DNA double strand anti body assay (units/volume)on 02-10-2022 DNA double strand Ab Qn (S) [IU]/mL 0-9 [facility] Work Phone: Comment on above: Negative <5 Equivoca l 5 - 9 Positive >9 Serum Gloria-1 antibody assay (u nits/volume)on 02-10-2022 Gloria-1 extractable nuclear Ab Qn (S) <0.2 AI 0.0-0.9 [facility] Work Phone: Serum Scl-70 extractable nuc lear antibody assay (units/volume)on 02-10-2022 SCL-70 extractable nuclear Ab Qn (S) <0.2 AI 0.0-0.9 [facility] Work Phone: Serum Wise extractable nucl ear antibody detectionon 02-10-2022 Wise extractable nuclear Ab Ql (S) <0.2 AI 0.0-0.9 [facility] Work Phone: Serum classic neutrophil cyt oplasmic antibody assay (units/volume)on 02-10-2022 Neutrophil cytoplasmic Ab.classic Qn (S) <1:20 titer Neg:<1:20 [facility] Work Phone: Serum or plasma C reactive p rotein measurement (mass/volume)on 02-10-2022 CRP [Mass/Vol] 176.00 mg/L 0.0-3.0 [facility] Work Phone: Comment on above: C-Reactive Protein ( CRP) provides useful information for thediagnosis, therapy and monitoring of inflammatory processesand associated diseases. For the evaluation of Relative Riskfor Cardiovascular Disease, a High Sensitivity CRP (HSCRP)should be ordered. Serum or plasma calcium kj urement (mass/volume)on 02-10-2022 Calcium [Mass/Vol] 8.2 mg/dL 8.5-10.1 [facility] Work Phone: Serum or plasma creatinine m easurement (mass/volume)on 02-10-2022 Creatinine [Mass/Vol] 0.70 mg/dL 0.55-1.02 [facility] Work Phone: Comment on above: The validity of the calculated GFR & GFRAA in patients over 70 years has not been determined. Clinical correlation is essential. Serum or plasma urea nitroge n measurement (mass/volume)on 02-10-2022 Urea nitrogen [Mass/Vol] 11 mg/dL 7-18 [facility] Work Phone: Serum perinuclear neutrophil cytoplasmic antibody titer by immunofluorescenceon 02-10-2022 Neutrophil cytoplasmic Ab.perinuclear IF (S) [Titer] <1:20 titer Neg:<1:20 [facility] Work Phone: Comment on above: The presence of posi tive fluorescence exhibiting P-ANCA orC-ANCA patterns alone is not specific for the diagnosis ofWegener's Granulomatosis (WG) or microscopic polyangiitis.Decisions about treatment should not be based solely onANCA IFA results. The [employer] ANCA Group Consensusrecommends follow up testing of positive sera with both NM-3 and MPO-ANCA enzyme immunoassays. As many as 5% serumsamples are positive only by EIA. Ref. AM J Clin [id number];[id number]. Thin prep Papanicolaou smear with manual screeningon 02-10-2022 Thin prep Papanicolaou smear with manual screening 7 5-15 [facility] Work Phone: Absolute lymphocyte counton 02-09-2022 Lymphocytes Auto (Unsp spec) [#/Vol] 0.84 10*3/uL 0.83-4.51 [facility] Work Phone: Basophil percentageon 2021 Basophil percentage 10-25 SEEN /hpf 0-5 [facility] Work Phone: Basophils/100 WBC (Bld) 0.2 % 0-1 [facility] Work Phone: Bilirubin [Mass/Vol] 0.70 mg/dL 0.20-1.00 [facility] Work Phone: Comment on above: For patients on eltr ombopag therapy, use of Dimension [place] TBIL is not recommended. Chloride [Moles/Vol] 107 mmol/L 98-107 [facility] Work Phone: Eosinophils/100 WBC (Bld) 0.2 % 0-5 [facility] Work Phone: Glucose [Mass/Vol] 158 mg/dL 74-106 [facility] Work Phone: Comment on above: Fasting Glucose resu lt greater than or equal to 126 mg/dL suggests DIABETES MELLITUS per A.D.A. criteria. Lactate [Moles/Vol] 1.1 mmol/L 0.4-2.0 [facility] Work Phone: Neutrophils (Bld) [#/Vol] 12.3 10*3/uL 2.0-7.7 [facility] Work Phone: Neutrophils/100 WBC (Bld) 84.2 % 47-70 [facility] Work Phone: Potassium [Moles/Vol] 3.9 mmol/L 3.5-5.1 [facility] Work Phone: Protein [Mass/Vol] 6.6 g/dL 6.4-8.2 [facility] Work Phone: Sodium [Moles/Vol] 140 mmol/L 136-145 [facility] Work Phone: WBC (Bld) [#/Vol] 14.6 10*3/uL 4.4-11.0 [facility] Work Phone: [phone] Bilirubin Test strip Ql (U)o n 09-28-2022 Bilirubin Ql (U) Negative Negative [facility] Work Phone: Blood erythrocytes count (nu mber/volume)on 02-09-2022 RBC (Bld) [#/Vol] 3.51 10*6/uL 4.2-5.4 [facility] Work Phone: Blood hemoglobin measurement (mass/volume)on 02-09-2022 Hemoglobin (Bld) [Mass/Vol] 9.6 g/dL 12.0-15.0 [facility] Work Phone: Blood lymphocytes/100 leukoc yteson 02-09-2022 Lymphocytes/100 WBC (Bld) 5.8 % 19-41 [facility] Work Phone: Blood monocytes/100 leukocyt eson 02-09-2022 Monocytes/100 WBC (Bld) 8.5 % 0-10 [facility] Work Phone: Blood platelet mean volumeon 02-09-2022 Platelet mean volume (Bld) [Entitic vol] 9.8 fL 6.2-12.0 [facility] Work Phone: Determination of erythrocyte mean corpuscular volume (MCV)on 02-09-2022 MCV (RBC) [Entitic vol] 87.2 fL 81-99 [facility] Work Phone: Hematocrit Auto (Bld) [Volum e fraction]on 02-09-2022 Hematocrit (Bld) [Volume fraction] 30.6 % 37-47 [facility] Work Phone: INR in Blood by Coagulation assayon 02-09-2022 INR Coag (Bld) [Relative time] 1.1 {INR} [facility] Work Phone: Ketones Test strip Ql (U)on 02-09-2022 Ketones Ql (U) Negative Negative [facility] Work Phone: Laboratory - Chemistry and C hemistry - challengeon 02-09-2022 ALP [Catalytic activity/Vol] 91 U/L 45-117 [facility] Work Phone: ALT [Catalytic activity/Vol] 56 U/L 13-56 [facility] Work Phone: CO2 [Moles/Vol] 26.0 mmol/L 21.0-32.0 [facility] Work Phone: Globulin (S) [Mass/Vol] 4.9 g/dL 2.2-4.2 [facility] Work Phone: Magnesium [Mass/Vol] 1.9 mg/dL 1.6-2.6 [facility] Work Phone: Urea nitrogen/Creatinine [Mass ratio] 15.8 mg/mg 10-20 [facility] Work Phone: Laboratory - Coagulationon 0 02-09-2022 aPTT Coag (Bld) [Time] 46.4 s 24.1-36.2 [facility] Work Phone: PT Coag (PPP) [Time] 14.3 s 11.7-14.9 [facility] Work Phone: Laboratory - Hematology and Cell countson 02-09-2022 Erythrocyte distribution width (RBC) [Entitic vol] 53.6 fL 35.1-43.9 [facility] Work Phone: Erythrocyte distribution width (RBC) [Ratio] 16.8 % 11.6-14.6 [facility] Work Phone: Immature granulocytes/100 WBC (Bld) 1.100 % 0.0-0.9 [facility] Work Phone: Comment on above: IG% - Immature Granu locytes (promyelocytes, myelocytes and metamyelocytes) > 1% indicates that a LEFT SHIFT is Present. MCH (RBC) [Entitic mass] 27.4 pg 27.0-32.0 [facility] Work Phone: Nucleated RBC/100 WBC (Bld) [Ratio] 0 % 0-5 [facility] Work Phone: MCHC Auto (RBC) [Mass/Vol]on 02-09-2022 MCHC (RBC) [Mass/Vol] 31.4 g/dL 32-36 [facility] Work Phone: Mucus LM Ql (Urine sed)on Mucus Ql (Urine sed) 0 SEEN /hpf [facility] Work Phone: Nitrite Test strip Ql (U)on 02-09-2022 Nitrite Ql (U) Negative Negative [facility] Work Phone: No Panel Informationon 02-09 Estimated Creatinine Clearance Calc 36.73 ml/min [facility] Work Phone: Estimated GFR (MDRD) Amer 73 mL/min >60 [facility] Work Phone: Comment on above: GFR Calc Estimated GFR (MDRD) Non-Af Amer 60 mL/min >60 [facility] Work Phone: Comment on above: Non- GFR Calc Troponin I High Sensitivity 7 pg/mL 3.0-54.0 [facility] Work Phone: Comment on above: Please Note: [place] t Units and Gender Specific Reference Ranges. For more information see Policy Stat Procedure [place] High Sensitivity Troponin (TNIH) and attachments. Platelets bldon 02-09-2022 Platelets (Bld) [#/Vol] 480 10*3/uL 150-450 [facility] Work Phone: Protein Test strip Ql (U)on 02-09-2022 Protein Ql (U) 15 mg/dl Negative [facility] Work Phone: Serum or plasma albumin kj urement (mass/volume)on 02-09-2022 Albumin [Mass/Vol] 1.7 g/dL 3.2-5.0 [facility] Work Phone: Serum or plasma albumin/glob ulin mass ratioon 02-09-2022 Albumin/Globulin [Mass ratio] 0.3 {ratio} 0.9-2.4 [facility] Work Phone: Serum or plasma calcium kj urement (mass/volume)on 02-09-2022 Calcium [Mass/Vol] 9.3 mg/dL 8.5-10.1 [facility] Work Phone: Serum or plasma creatinine m easurement (mass/volume)on 02-09-2022 Creatinine [Mass/Vol] 0.95 mg/dL 0.55-1.02 [facility] Work Phone: Comment on above: The validity of the calculated GFR & GFRAA in patients over 70 years has not been determined. Clinical correlation is essential. Serum or plasma urea nitroge n measurement (mass/volume)on 02-09-2022 Urea nitrogen [Mass/Vol] 15 mg/dL 7-18 [facility] Work Phone: Squamous epithelial cells de tection in urine sediment by light microscopyon 02-09-2022 Epithelial cells.squamous LM Ql (Urine sed) 0 SEEN /hpf 5-10 [facility] Work Phone: Thin prep Papanicolaou smear with manual screeningon 02-09-2022 Thin prep Papanicolaou smear with manual screening 90 U/L 15-37 [facility] Work Phone: Thin prep Papanicolaou smear with manual screening 7 5-15 [facility] Work Phone: Urine blood detectionon 01-14 RBC Ql (U) 10 /ul Negative [facility] Work Phone: RBC Ql (U) 0 SEEN /hpf 0-5 [facility] Work Phone: Urine clarityon 02-09-2022 Clarity (U) Clear Clear [facility] Work Phone: Urine color determinationon 02-09-2022 Color (U) Yellow Yellow [facility] Work Phone: Urine glucose detectionon Glucose Ql (U) Normal mg/dl Normal [facility] Work Phone: Urine leukocyte esterase det ection by dipstickon 02-09-2022 Leukocyte esterase Test strip Ql (U) 25 /ul Negative [facility] Work Phone: Urine pHon 02-09-2022 pH (U) 6.0 [pH] 5.0 - 8.0 [facility] Work Phone: Urine sediment bacteria coun t by microscopy (number/high power field)on 02-09-2022 Bacteria LM.HPF (Urine sed) [#/Area] 0 /[HPF] None Seen [facility] Work Phone: Urine specific gravity measu rementon 02-09-2022 Specific gravity (U) [Rel density] 1.020 1.002-1.03 0 [facility] Work Phone: Urobilinogen Auto test strip Ql (U)on 02-09-2022 Urobilinogen Ql (U) Normal mg/dl Normal [facility] Work Phone: Absolute lymphocyte counton 02-04-2022 Lymphocytes Auto (Unsp spec) [#/Vol] 0.71 10*3/uL 0.83-4.51 [facility] Work Phone: Basophil percentageon 2021 Basophils/100 WBC (Bld) 0.4 % 0-1 [facility] Work Phone: [phone] Chloride [Moles/Vol] 105 mmol/L 98-107 [facility] Work Phone: Eosinophils/100 WBC (Bld) 0.2 % 0-5 [facility] Work Phone: Glucose [Mass/Vol] 138 mg/dL 74-106 [facility] Work Phone: Comment on above: Fasting Glucose resu lt greater than or equal to 126 mg/dL suggests DIABETES MELLITUS per A.D.A. criteria. Neutrophils (Bld) [#/Vol] 6.0 10*3/uL 2.0-7.7 [facility] Work Phone: [phone] Neutrophils/100 WBC (Bld) 73.1 % 47-70 [facility] Work Phone: Potassium [Moles/Vol] 3.4 mmol/L 3.5-5.1 [facility] Work Phone: [phone] Sodium [Moles/Vol] 139 mmol/L 136-145 [facility] Work Phone: WBC (Bld) [#/Vol] 8.2 10*3/uL 4.4-11.0 [facility] Work Phone: Blood erythrocytes count (nu mber/volume)on 02-04-2022 RBC (Bld) [#/Vol] 3.84 10*6/uL 4.2-5.4 [facility] Work Phone: Blood hemoglobin measurement (mass/volume)on 02-04-2022 Hemoglobin (Bld) [Mass/Vol] 10.4 g/dL 12.0-15.0 [facility] Work Phone: Blood lymphocytes/100 leukoc yteson 02-04-2022 Lymphocytes/100 WBC (Bld) 8.6 % 19-41 [facility] Work Phone: Blood monocytes/100 leukocyt eson 02-04-2022 Monocytes/100 WBC (Bld) 16.7 % 0-10 [facility] Work Phone: Blood platelet mean volumeon 02-04-2022 Platelet mean volume (Bld) [Entitic vol] 10.4 fL 6.2-12.0 [facility] Work Phone: Determination of erythrocyte mean corpuscular volume (MCV)on 02-04-2022 MCV (RBC) [Entitic vol] 87.2 fL 81-99 [facility] Work Phone: Hematocrit Auto (Bld) [Volum e fraction]on 02-04-2022 Hematocrit (Bld) [Volume fraction] 33.5 % 37-47 [facility] Work Phone: Laboratory - Chemistry and C hemistry - challengeon 02-04-2022 CO2 [Moles/Vol] 25.0 mmol/L 21.0-32.0 [facility] Work Phone: Urea nitrogen/Creatinine [Mass ratio] 15.8 mg/mg 10-20 [facility] Work Phone: Laboratory - Hematology and Cell countson 02-04-2022 Erythrocyte distribution width (RBC) [Entitic vol] 50.0 fL 35.1-43.9 [facility] Work Phone: Erythrocyte distribution width (RBC) [Ratio] 15.6 % 11.6-14.6 [facility] Work Phone: Immature granulocytes/100 WBC (Bld) 1.000 % 0.0-0.9 [facility] Work Phone: Comment on above: IG% - Immature Granu locytes (promyelocytes, myelocytes and metamyelocytes) > 1% indicates that a LEFT SHIFT is Present. MCH (RBC) [Entitic mass] 27.1 pg 27.0-32.0 [facility] Work Phone: Nucleated RBC/100 WBC (Bld) [Ratio] 0 % 0-5 [facility] Work Phone: MCHC Auto (RBC) [Mass/Vol]on 02-04-2022 MCHC (RBC) [Mass/Vol] 31.0 g/dL 32-36 [facility] Work Phone: No Panel Informationon 02-04 Estimated Creatinine Clearance Calc 34.55 ml/min [facility] Work Phone: Estimated GFR (MDRD) Amer 68 mL/min >60 [facility] Work Phone: Comment on above: GFR Calc Estimated GFR (MDRD) Non-Af Amer 56 mL/min >60 [facility] Work Phone: Comment on above: Non- GFR Calc Platelets bldon 02-04-2022 Platelets (Bld) [#/Vol] 294 10*3/uL 150-450 [facility] Work Phone: Serum or plasma calcium kj urement (mass/volume)on 02-04-2022 Calcium [Mass/Vol] 9.0 mg/dL 8.5-10.1 [facility] Work Phone: Serum or plasma creatinine m easurement (mass/volume)on 02-04-2022 Creatinine [Mass/Vol] 1.01 mg/dL 0.55-1.02 [facility] Work Phone: Comment on above: The validity of the calculated GFR & GFRAA in patients over 70 years has not been determined. Clinical correlation is essential. Serum or plasma urea nitroge n measurement (mass/volume)on 02-04-2022 Urea nitrogen [Mass/Vol] 16 mg/dL 7-18 [facility] Work Phone: Thin prep Papanicolaou smear with manual screeningon 02-04-2022 Thin prep Papanicolaou smear with manual screening 9 5-15 [facility] Work Phone: Absolute lymphocyte counton 02-02-2022 Lymphocytes Auto (Unsp spec) [#/Vol] 0.58 10*3/uL 0.83-4.51 [facility] Work Phone: Basophil percentageon 2021 Basophils/100 WBC (Bld) 0.4 % 0-1 [facility] Work Phone: [phone] Chloride [Moles/Vol] 109 mmol/L 98-107 [facility] Work Phone: Eosinophils/100 WBC (Bld) 0.3 % 0-5 [facility] Work Phone: [phone] Glucose [Mass/Vol] 106 mg/dL 74-106 [facility] Work Phone: Comment on above: Fasting Glucose resu lt from 100 to 125 mg/dL suggests IMPAIRED HOMEOSTASIS per A.D.A. criteria. Neutrophils (Bld) [#/Vol] 4.8 10*3/uL 2.0-7.7 [facility] Work Phone: Neutrophils/100 WBC (Bld) 72.0 % 47-70 [facility] Work Phone: Potassium [Moles/Vol] 3.6 mmol/L 3.5-5.1 [facility] Work Phone: Sodium [Moles/Vol] 140 mmol/L 136-145 [facility] Work Phone: WBC (Bld) [#/Vol] 6.7 10*3/uL 4.4-11.0 [facility] Work [facility]: Blood erythrocytes count (nu mber/volume)on 02-02-2022 RBC (Bld) [#/Vol] 4.05 10*6/uL 4.2-5.4 [facility] Work Phone: Blood hemoglobin measurement (mass/volume)on 02-02-2022 Hemoglobin (Bld) [Mass/Vol] 11.0 g/dL 12.0-15.0 [facility] Work Phone: Blood lymphocytes/100 leukoc yteson 02-02-2022 Lymphocytes/100 WBC (Bld) 8.7 % 19-41 [facility] Work Phone: Blood monocytes/100 leukocyt eson 02-02-2022 Monocytes/100 WBC (Bld) 18.3 % 0-10 [facility] Work Phone: Blood platelet mean volumeon 02-02-2022 Platelet mean volume (Bld) [Entitic vol] 10.3 fL 6.2-12.0 [facility] Work Phone: Determination of erythrocyte mean corpuscular volume (MCV)on 02-02-2022 MCV (RBC) [Entitic vol] 87.4 fL 81-99 [facility] Work Phone: Hematocrit Auto (Bld) [Volum e fraction]on 02-02-2022 Hematocrit (Bld) [Volume fraction] 35.4 % 37-47 [facility] Work Phone: Laboratory - Chemistry and C hemistry - challengeon 02-02-2022 CO2 [Moles/Vol] 22.0 mmol/L 21.0-32.0 [facility] Work Phone: Urea nitrogen/Creatinine [Mass ratio] 19.7 mg/mg 10-20 [facility] Work Phone: Laboratory - Hematology and Cell countson 02-02-2022 Anisocytosis Ql (Bld) 1+ [facility] Work Phone: Erythrocyte distribution width (RBC) [Entitic vol] 49.5 fL 35.1-43.9 [facility] Work Phone: Erythrocyte distribution width (RBC) [Ratio] 15.4 % 11.6-14.6 [facility] Work Phone: Immature granulocytes/100 WBC (Bld) 0.300 % 0.0-0.9 [facility] Work Phone: Comment on above: IG% - Immature Granu locytes (promyelocytes, myelocytes and metamyelocytes) > 1% indicates that a LEFT SHIFT is Present. MCH (RBC) [Entitic mass] 27.2 pg 27.0-32.0 [facility] Work Phone: Nucleated RBC/100 WBC (Bld) [Ratio] 0 % 0-5 [facility] Work Phone: MCHC Auto (RBC) [Mass/Vol]on 02-02-2022 MCHC (RBC) [Mass/Vol] 31.1 g/dL 32-36 [facility] Work Phone: No Panel Informationon 02-02 Estimated Creatinine Clearance Calc 40.58 ml/min [facility] Work Phone: Estimated GFR (MDRD) Amer 81 mL/min >60 [facility] Work Phone: Comment on above: GFR Calc Estimated GFR (MDRD) Non-Af Amer 67 mL/min >60 [facility] Work Phone: Comment on above: Non- GFR Calc Platelets bldon 02-02-2022 Platelets (Bld) [#/Vol] 198 10*3/uL 150-450 [facility] Work Phone: Serum or plasma calcium kj urement (mass/volume)on 02-02-2022 Calcium [Mass/Vol] 8.8 mg/dL 8.5-10.1 [facility] Work Phone: Serum or plasma creatinine m easurement (mass/volume)on 02-02-2022 Creatinine [Mass/Vol] 0.86 mg/dL 0.55-1.02 [facility] Work Phone: Comment on above: The validity of the calculated GFR & GFRAA in patients over 70 years has not been determined. Clinical correlation is essential. Serum or plasma urea nitroge n measurement (mass/volume)on 02-02-2022 Urea nitrogen [Mass/Vol] 17 mg/dL 7-18 [facility] Work Phone: Thin prep Papanicolaou smear with manual screeningon 02-02-2022 Thin prep Papanicolaou smear with manual screening 9 5-15 [facility] Work Phone: Review by pathologiston 01-14 Pathologist review Parth (Unsp spec) [Interp] Reviewed [facility] Work Phone: Comment on above: Previous reported re sult: Jacinda lawson Edited by: SHANA on 02/01/22:1310Neutrophilic leukocytosis.Clinical correlation necessary.Darwin Boyle M.D. 02/01/22 AMENDED REPORT 02/01/22 1310 PATH REV previously reported as: Jacinda lawson Absolute lymphocyte counton 01-31-2022 Lymphocytes Auto (Unsp spec) [#/Vol] 1.23 10*3/uL 0.83-4.51 [facility] Work Phone: Basophil percentageon 2021 Basophil percentage 25-50 SEEN /hpf 0-5 [facility] Work Phone: Basophils/100 WBC (Bld) 0.3 % 0-1 [facility] Work Phone: Bilirubin [Mass/Vol] 1.00 mg/dL 0.20-1.00 [facility] Work Phone: Comment on above: For patients on eltr ombopag therapy, use of Dimension [place] TBIL is not recommended. Chloride [Moles/Vol] 104 mmol/L 98-107 [facility] Work Phone: Eosinophils/100 WBC (Bld) 0.0 % 0-5 [facility] Work Phone: Glucose [Mass/Vol] 133 mg/dL 74-106 [facility] Work Phone: Comment on above: Fasting Glucose resu lt greater than or equal to 126 mg/dL suggests DIABETES MELLITUS per A.D.A. criteria. Lactate [Moles/Vol] 1.4 mmol/L 0.4-2.0 [facility] Work Phone: Neutrophils (Bld) [#/Vol] 11.3 10*3/uL 2.0-7.7 [facility] Work Phone: Neutrophils/100 WBC (Bld) 76.6 % 47-70 [facility] Work Phone: [phone] Potassium [Moles/Vol] 4.0 mmol/L 3.5-5.1 [facility] Work Phone: Protein [Mass/Vol] 7.0 g/dL 6.4-8.2 [facility] Work Phone: Sodium [Moles/Vol] 139 mmol/L 136-145 [facility] Work Phone: WBC (Bld) [#/Vol] 14.8 10*3/uL 4.4-11.0 [facility] Work Phone: Bilirubin Test strip Ql (U)o n 01-31-2022 Bilirubin Ql (U) 3 mg/dL Negative [facility] Work Phone: Comment on above: COLOR OF URINE MAY A FFECT DIPSTICK RESULTS. Blood erythrocytes count (nu mber/volume)on 01-31-2022 RBC (Bld) [#/Vol] 4.44 10*6/uL 4.2-5.4 [facility] Work Phone: Blood hemoglobin measurement (mass/volume)on 01-31-2022 Hemoglobin (Bld) [Mass/Vol] 12.1 g/dL 12.0-15.0 [facility] Work Phone: Blood lymphocytes/100 leukoc yteson 01-31-2022 Lymphocytes/100 WBC (Bld) 8.3 % 19-41 [facility] Work Phone: Blood monocytes/100 leukocyt eson 01-31-2022 Monocytes/100 WBC (Bld) 14.2 % 0-10 [facility] Work Phone: Blood platelet mean volumeon 01-31-2022 Platelet mean volume (Bld) [Entitic vol] 9.5 fL 6.2-12.0 [facility] Work Phone: Determination of erythrocyte mean corpuscular volume (MCV)on 01-31-2022 MCV (RBC) [Entitic vol] 88.1 fL 81-99 [facility] Work Phone: Hematocrit Auto (Bld) [Volum e fraction]on 01-31-2022 Hematocrit (Bld) [Volume fraction] 39.1 % 37-47 [facility] Work Phone: INR in Blood by Coagulation assayon 01-31-2022 INR Coag (Bld) [Relative time] 1.3 {INR} [facility] Work Phone: Ketones Test strip Ql (U)on 01-31-2022 Ketones Ql (U) 5 mg/dl Negative [facility] Work Phone: Laboratory - Chemistry and C hemistry - challengeon 01-31-2022 ALP [Catalytic activity/Vol] 57 U/L 45-117 [facility] Work Phone: [phone] ALT [Catalytic activity/Vol] 17 U/L 13-56 [facility] Work Phone: CO2 [Moles/Vol] 27.0 mmol/L 21.0-32.0 [facility] Work Phone: Globulin (S) [Mass/Vol] 4.0 g/dL 2.2-4.2 [facility] Work Phone: Urea nitrogen/Creatinine [Mass ratio] 12.6 mg/mg 10-20 [facility] Work Phone: Laboratory - Coagulationon 0 01-31-2022 aPTT Coag (Bld) [Time] 48.4 s 24.1-36.2 [facility] Work Phone: PT Coag (PPP) [Time] 15.9 s 11.7-14.9 [facility] Work Phone: Laboratory - Hematology and Cell countson 01-31-2022 Anisocytosis Ql (Bld) 1+ [facility] Work Phone: Erythrocyte distribution width (RBC) [Entitic vol] 49.7 fL 35.1-43.9 [facility] Work Phone: Erythrocyte distribution width (RBC) [Ratio] 15.4 % 11.6-14.6 [facility] Work Phone: Immature granulocytes/100 WBC (Bld) 0.600 % 0.0-0.9 [facility] Work Phone: Comment on above: IG% - Immature Granu locytes (promyelocytes, myelocytes and metamyelocytes) > 1% indicates that a LEFT SHIFT is Present. MCH (RBC) [Entitic mass] 27.3 pg 27.0-32.0 [facility] Work Phone: Nucleated RBC/100 WBC (Bld) [Ratio] 0 % 0-5 [facility] Work Phone: MCHC Auto (RBC) [Mass/Vol]on 01-31-2022 MCHC (RBC) [Mass/Vol] 30.9 g/dL 32-36 [facility] Work Phone: Mucus LM Ql (Urine sed)on Mucus Ql (Urine sed) 1+ /hpf [facility] Work Phone: Nitrite Test strip Ql (U)on 01-31-2022 Nitrite Ql (U) Positive Negative [facility] Work Phone: No Panel Informationon 01-31 Estimated Creatinine Clearance Calc 21.95 ml/min [facility] Work Phone: Estimated GFR (MDRD) Amer 40 mL/min >60 [facility] Work Phone: Comment on above: GFR Calc Estimated GFR (MDRD) Non-Af Amer 33 mL/min >60 [facility] Work Phone: Comment on above: Non- GFR Calc Platelets bldon 01-31-2022 Platelets (Bld) [#/Vol] 242 10*3/uL 150-450 [facility] Work Phone: Protein Test strip Ql (U)on 01-31-2022 Protein Ql (U) 100 mg/dl Negative [facility] Work Phone: Review by pathologiston 01-13 Pathologist review Parth (Unsp spec) [Interp] September [facility] Work Phone: Serum or plasma albumin kj urement (mass/volume)on 01-31-2022 Albumin [Mass/Vol] 3.0 g/dL 3.2-5.0 [facility] Work Phone: Serum or plasma albumin/glob ulin mass ratioon 01-31-2022 Albumin/Globulin [Mass ratio] 0.8 {ratio} 0.9-2.4 [facility] Work Phone: Serum or plasma calcium kj urement (mass/volume)on 01-31-2022 Calcium [Mass/Vol] 9.5 mg/dL 8.5-10.1 [facility] Work Phone: Serum or plasma creatinine m easurement (mass/volume)on 01-31-2022 Creatinine [Mass/Vol] 1.59 mg/dL 0.55-1.02 [facility] Work Phone: Comment on above: The validity of the calculated GFR & GFRAA in patients over 70 years has not been determined. Clinical correlation is essential. Serum or plasma urea nitroge n measurement (mass/volume)on 01-31-2022 Urea nitrogen [Mass/Vol] 20 mg/dL 7-18 [facility] Work Phone: Squamous epithelial cells de tection in urine sediment by light microscopyon 01-31-2022 Epithelial cells.squamous LM Ql (Urine sed) 0-5 SEEN /hpf 5-10 [facility] Work Phone: Thin prep Papanicolaou smear with manual screeningon 01-31-2022 Thin prep Papanicolaou smear with manual screening 17 U/L 15-37 [facility] Work Phone: Thin prep Papanicolaou smear with manual screening 8 5-15 [facility] Work Phone: Urine blood detectionon 01-13 RBC Ql (U) 50 /ul Negative [facility] Work Phone: RBC Ql (U) 0-5 SEEN /hpf 0-5 [facility] Work Phone: Urine clarityon 01-31-2022 Clarity (U) Sl. Cloudy Clear [facility] Work Phone: Urine color determinationon 01-31-2022 Color (U) Yellow Yellow [facility] Work Phone: Urine glucose detectionon Glucose Ql (U) Normal mg/dl Normal [facility] Work Phone: Urine leukocyte esterase det ection by dipstickon 01-31-2022 Leukocyte esterase Test strip Ql (U) 500 /ul Negative [facility] Work Phone: Urine pHon 01-31-2022 pH (U) 5.0 [pH] 5.0 - 8.0 [facility] Work Phone: Urine sediment bacteria coun t by microscopy (number/high power field)on 01-31-2022 Bacteria LM.HPF (Urine sed) [#/Area] 3 /[HPF] None Seen [facility] Work Phone: Urine specific gravity measu rementon 01-31-2022 Specific gravity (U) [Rel density] 1.025 1.002-1.03 0 [facility] Work Phone: Urobilinogen Auto test strip Ql (U)on 01-31-2022 Urobilinogen Ql (U) 1 mg/dl Normal [facility] Work Phone: Basophil percentageon 2021 Basophil percentage >100 SEEN /hpf 0-5 [facility] Work Phone: Bilirubin Test strip Ql (U)o n 01-30-2022 Bilirubin Ql (U) Negative Negative [facility] Work Phone: Ketones Test strip Ql (U)on 01-30-2022 Ketones Ql (U) Negative Negative [facility] Work Phone: Laboratory - Chemistry and C hemistry - challengeon 01-30-2022 Bilirubin Ql (U) Negative [facility] Work Phone: Glucose Ql (U) Negative [facility] Work Phone: Ketones Ql (U) Small (15+) [facility] Work Phone: pH (U) 1.020 [pH] [facility] Work Phone: Specific gravity (U) [Rel density] 1.020 [facility] Work Phone: Urobilinogen (U) [Mass/Vol] Negative [facility] Work Phone: Laboratory - Hematology and Cell countson 01-30-2022 Hemoglobin Ql (U) Hemolyzed [facility] Work Phone: Laboratory - Specimen inform ationon 01-30-2022 Clarity (U) Cloudy [facility] Work Phone: Color (U) JOHNNA [facility] Work Phone: Laboratory - Urinalysison Nitrite Ql (U) Positive [facility] Work Phone: [phone] Protein Ql (U) Negative [facility] Work Phone: Mucus LM Ql (Urine sed)on Mucus Ql (Urine sed) 0 SEEN /hpf [facility] Work Phone: Nitrite Test strip Ql (U)on 01-30-2022 Nitrite Ql (U) Positive Negative [facility] Work Phone: No Panel Informationon 01-30 Urine Leukocytes Positive [facility] Work Phone: Urine Non-Hemolyzed Blood Large [facility] Work Phone: Protein Test strip Ql (U)on 01-30-2022 Protein Ql (U) 30 mg/dl Negative [facility] Work Phone: Squamous epithelial cells de tection in urine sediment by light microscopyon 01-30-2022 Epithelial cells.squamous LM Ql (Urine sed) 0 SEEN /hpf 5-10 [facility] Work Phone: Urine blood detectionon 01-13 RBC Ql (U) 150 /ul Negative [facility] Work Phone: RBC Ql (U) 0 SEEN /hpf 0-5 [facility] Work Phone: Urine clarityon 01-30-2022 Clarity (U) Cloudy Clear [facility] Work Phone: Urine color determinationon 01-30-2022 Color (U) Yellow Yellow [facility] Work Phone: Urine glucose detectionon Glucose Ql (U) Normal mg/dl Normal [facility] Work Phone: Urine leukocyte esterase det ection by dipstickon 01-30-2022 Leukocyte esterase Test strip Ql (U) 500 /ul Negative [facility] Work Phone: Urine pHon 01-30-2022 pH (U) 6.0 [pH] 5.0 - 8.0 [facility] Work Phone: Urine sediment bacteria coun t by microscopy (number/high power field)on 01-30-2022 Bacteria LM.HPF (Urine sed) [#/Area] 1 /[HPF] None Seen [facility] Work Phone: Urine specific gravity measu rementon 01-30-2022 Specific gravity (U) [Rel density] 1.020 1.002-1.03 0 [facility] Work Phone: Urobilinogen Auto test strip Ql (U)on 01-30-2022 Urobilinogen Ql (U) Normal mg/dl Normal [facility] Work Phone: Tamanna 12-29-2020 CNOV Office Visit (AGPOB1 ) GABRIELA RAMON ([id number]) 1940 F Date Time Provider Department 12/29/20 10:30 AM ROHAN REDDING AGPOB1 During your visit today, we recorded the following information about you: Respiration Weight Height 16/minute 77.1 kg 1.575 m Jordyn Deal LPN 12/29/2020 10:38 AM Signed REVIEW OF SYSTEMS: GENERAL: Well developed, well [...] Negative for excessive bleeding, clots, bleeding disorders. Rohan Redding MD 12/29/2020 10:38 AM Signed Chief complaint: Left ankle pain. History present [...] to contact our office for an appointment. Referring Provider: ROHAN REDDING [[id number]] Allergies As of Date: 12/29/2020 (No Known Allergies) Date Reviewed: 12/29/2020 Reviewed by: Rohan Redding MD - Fully Assessed Reason for Visit: Established Patient [175] Primary Visit Diagnosis:Type I or II open fracture of left ankle with routine healing, subsequent encounter [S82.892E] Order(s):XR ANKLE GENERAL 3V AP/LAT/OBL LT [[id number]] Order #: [id number] Prescriptions as of 12/29/2020 - omeprazole (PRILOSEC) 20 mg capsule Take 1 capsule by mouth once daily. - celecoxib (CELEBREX) 200 mg capsule - mecobalamin (B12 ACTIVE ORAL) Take by [...] tablet by mouth daily at bedtime. - meloxicam (MOBIC) 15 mg tablet Take 1 tablet by mouth once daily. - hydroCHLOROthiazide (HYDRODIURIL, ESIDRIX) 25 mg tablet Take 1 tablet by mouth once daily. - Benazepril HCl 40 mg tablet Take 1 tablet by mouth once daily. - amLODIPine (NORVASC) 10 mg tablet Take 1 tablet by mouth once daily. - atenolol (TENORMIN) 25 mg tablet Take 1 tablet by mouth twice daily. - nystatin (MYCOSTATIN) cream Apply 1 application to affected area three times daily. Apply topically to affected area 2-3 times/day up to 14 days - baclofen (LIORESAL) 10 mg tablet Take 10 mg by mouth twice daily as needed (muscle spasms). TAKE 0.5-1 TABLET BID PRN FOR SPASMS Problem List As Of Date 12/29/2020 Noted Resolved Coronary atherosclerosis [I25.10] 08/08/2007 HYPERLIPIDEMIA NEC/NOS [E78.5] 08/08/2007 BENIGN HYPERTENSION [I10] 08/08/2007 Osteoporosis [M81.0] 08/08/2007 INGROWING NAIL [L60.0] 02/05/2008 Unspecified Cellulitis and Abscess of Toe [L03.*02/02/2009 Impaired Fasting Blood Sugar [R73.01] 06/08/2009 Backache [M54.9] 01/25/2011 Pain in thoracic spine [M54.6] 02/03/2011 Abdominal pain, unspecified site [R10.9] 01/05/2012 Umbilical hernia without mention of obstruction*02/03/2012 Inguinal hernia without mention of obstruction *02/03/2012 Type I or II open fracture of left ankle [S82.8*04/07/2020 Obesity, Class I, BMI 30-34.9 [E66.9] more content not included)... Normal [facility] CNOVon 10-27-2020 CNOV Office Visit (AGPOB1 ) GABRIELA RAMON ([id number]) 1940 F Date Time Provider Department 10/27/20 10:30 AM ROHAN REDDING During your visit today, we recorded the following information about you: Respiration Weight Height 20/minute 77.1 kg 1.575 m Rohan Redding MD 10/27/2020 10:55 AM Signed Chief complaint: Left ankle pain. This present [...] necessary, we can take the screw out. [id number] pain medication. If she has any questions or concerns prior to her next appointment, she will contact the office. All questions answered. Referring Provider: SELF [[id number]] Allergies As of Date: 10/27/2020 (No Known Allergies) Date Reviewed: 10/27/2020 Reviewed by: Rohan Redding MD - Fully Assessed Reason for Visit: Follow Up [171] Primary Visit Diagnosis:Type I or II open fracture of left ankle with routine healing, subsequent encounter [S82.892E] Order(s):XR ANKLE GENERAL 3V AP/LAT/OBL LT [[id number]] Order #: [id number] Prescriptions as of 10/27/2020 Sig: OMEPRAZOLE 20 MG CAPSULE,ROSE* Take 1 capsule by mouth once * CELECOXIB 200 MG CAPSULE B12 ACTIVE ORAL Take by mouth once daily. D-3-5 ORAL Take by mouth once daily. ASPIRIN 81 MG TABLET,DELAYED * Take 1 tablet by mouth once d* ISOSORBIDE MONONITRATE ER 60 * Take 1 [...] Take 1 tablet by mouth once d* ATENOLOL 25 MG TABLET Take 1 tablet by mouth twice * Patient taking differently: Take 25 mg by mouth once lee* NYSTATIN 100,000 UNIT/GRAM TO* Apply 1 application to affect* BACLOFEN 10 MG TABLET Take 10 mg by mouth twice julian* Problem List As Of Date 10/27/2020 Noted Resolved Coronary atherosclerosis [I25.10] 08/08/2007 HYPERLIPIDEMIA NEC/NOS [E78.5] 08/08/2007 BENIGN HYPERTENSION [I10] 08/08/2007 Osteoporosis [M81.0] 08/08/2007 INGROWING NAIL [L60.0] 02/05/2008 Unspecified Cellulitis and Abscess of Toe [L03.*02/02/2009 Impaired Fasting Blood Sugar [R73.01] 06/08/2009 Backache [M54.9] 01/25/2011 Pain in thoracic spine [M54.6] 02/03/2011 Abdominal pain, unspecified site [R10.9] 01/05/2012 Umbilical hernia without mention of obstruction*02/03/2012 Inguinal hernia without mention of obstruction *02/03/2012 Type I or II open fracture of left ankle [S82.8*04/07/2020 Obesity, Class I, BMI 30-34.9 [E66.9] 04/08/2020 Disposition: Return in about 2 months (around 12/27/2020). Follow-up and Disposition History Recorded Encounter Status:Closed by ROHAN REDDING on 10/27/20 [facility] CNOVon 07-14-2020 CNOV Office Visit (AGPOB1 ) GABRIELA [id number]) 1940 F Date Time Provider Department 07/14/20 10:45 AM ROHAN REDDING AGPOB1 During your visit today, we recorded the following information about you: Respiration Weight Height 18/minute 83.9 kg 1.575 m Kelly Gonsalves 07/14/2020 10:58 AM Signed REVIEW OF SYSTEMS: GENERAL: Well developed, well nourished. No acute distress PAIN: Pain 06/24 CARDIOVASCULAR: Negative for chest pain, leg swelling and palpations. MSK: Negative for joint swelling SKIN: Negative for lesions, rash, itching, metal sensitivity NEURO: Negative for seizure, trauma, numbness/tingling of extremities. ENDOCRINE: Negative for diabetic associated symptoms HEMATOLOGY: Negative for excessive bleeding, clots, bleeding disorders. Rohan Redding MD 07/14/2020 10:58 AM Signed Chief complaint: Left ankle pain. History illness: [...] significant amount of time to fully resolve. Xroc-bmy-pfoteid pain medication as necessary. I will see her back in 3 months. If there is any problems prior to next moment, she will contact the office. All questions answered. Referring Provider: [facility] [[id number]] Allergies As of Date: 07/14/2020 (No Known Allergies) Date Reviewed: 07/14/2020 Reviewed by: Rohan Redding - Fully Assessed Reason for Visit: Follow Up [171] Primary Visit Diagnosis:Type I or II open fracture of left ankle with routine healing, subsequent encounter [S83.513E] Order(s):XR ANKLE GENERAL 3V AP/LAT/OBL LT [[id number]] Order #: [id number] Prescriptions as of 07/14/2020 Sig: ASPIRIN 81 MG TABLET,DELAYED * Take 1 tablet by mouth once d* ISOSORBIDE MONONITRATE ER 60 * Take 1 tablet by mouth once d* SIMVASTATIN 20 MG TABLET Take 1 tablet by mouth daily * HYDROCHLOROTHIAZIDE 25 MG TAB* Take 1 tablet by mouth once d* BENAZEPRIL 40 MG TABLET Take 1 tablet by mouth once d* AMLODIPINE 10 MG TABLET Take 1 tablet by mouth once d* ATENOLOL 25 MG TABLET Take 1 tablet by mouth twice * Patient taking differently: Take 25 mg by mouth once lee* NYSTATIN 100,000 UNIT/GRAM TO* Apply 1 application to affect* BACLOFEN 10 MG TABLET Take 10 mg by mouth twice julian* MELOXICAM 15 MG TABLET Take 1 tablet by mouth once d* Patient not taking: Reported on 04/28/2020 ALENDRONATE 70 MG TABLET Take 1 tablet by mouth once e* Patient not taking: Reported on 04/28/2020 Problem List As Of Date 07/14/2020 Noted Resolved Coronary atherosclerosis [I25.10] 08/08/2007 More... HYPERLIPIDEMIA NEC/NOS [E78.5] 08/08/2007 BENIGN HYPERTENSION [I10] 08/08/2007 Osteoporosis [M81.0] 08/08/2007 INGROWING NAIL [L60.0] 02/05/2008 Unspecified Cellulitis and Abscess of Toe [L03.*02/02/2009 Impaired Fasting Blood Sugar [R73.01] 06/08/2009 Backache [M54.9] 01/25/2011 Pain in thoracic spine [M54.6] 02/03/2011 Abdominal pain, unspecified site [R10.9] 01/05/2012 Umbilical hernia without mention of obstruction*02/03/2012 Inguinal hernia without mention of obstruction *02/03/2012 Type I or II open fracture of left ankle [S82.8*04/07/2020 Obesity, Class I, BMI 30-34.9 [E66.9] 04/08/2020 Disposition: Return in about 3 months (around 10/14/2020). Follow-up and Disposition History Recorded Encounter Status:Closed by ROHAN REDDING MD on 07/14/20 [facility] CNOVon 05-19-2020 CNOV Office Visit (AGPOB1 ) GABRIELA RAMON ([id number]) 1940 F Date Time Provider Department 05/19/20 11:00 AM ROHAN REDDING AGPOB1 During your visit today, we recorded the following information about you: Respiration Weight Height 17/minute 83.9 kg 1.575 m Rohan Redding MD 05/19/2020 11:18 AM Signed Subjective: The patient returns today follow-up regarding [...] comfortable. A prescription for therapy was provided. Vukq-brl-gtotots pain medication. We discussed her swelling and icing and elevating. Her swelling will last for some time. I will see her back in 6 weeks. She has any questions or concerns prior to next appointment, she will contact the office. All questions answered. Referring Provider: SELF [200] Allergies As of Date: 05/19/2020 (No Known Allergies) Date Reviewed: 05/19/2020 Reviewed by: Rohan Redding - Fully Assessed Reason for Visit: Post Op [174] Primary Visit Diagnosis:Ankle fracture, left, open type I or II, initial encounter [N79.995X] Order(s):XR ANKLE GENERAL 3V AP/LAT/OBL LT [[id number]] Order #: [id number] CONSULT TO PHYSICAL THERAPY (AG) [[id number]] Order #: [id number]: 1 Prescriptions as of 05/19/2020 Sig: ASPIRIN 81 MG TABLET,DELAYED * Take 1 tablet by mouth once d* ISOSORBIDE MONONITRATE ER 60 * Take 1 tablet by mouth once d* SIMVASTATIN 20 MG TABLET Take 1 tablet by mouth daily * MELOXICAM 15 MG TABLET Take 1 tablet by mouth once d* Patient not taking: Reported on 04/28/2020 HYDROCHLOROTHIAZIDE 25 MG TAB* Take 1 tablet by mouth once d* BENAZEPRIL 40 MG TABLET Take 1 tablet by mouth once d* AMLODIPINE 10 MG TABLET Take 1 tablet by mouth once d* ALENDRONATE 70 MG TABLET Take 1 tablet by mouth once e* Patient not taking: Reported on 04/28/2020 ATENOLOL 25 MG TABLET Take 1 tablet by mouth twice * Patient taking differently: Take 25 mg by mouth once lee* NYSTATIN 100,000 UNIT/GRAM TO* Apply 1 application to affect* BACLOFEN 10 MG TABLET Take 10 mg by mouth twice julian* Problem List As Of Date 05/19/2020 Noted Resolved Coronary atherosclerosis [I25.10] 08/08/2007 More... HYPERLIPIDEMIA NEC/NOS [E78.5] 08/08/2007 BENIGN HYPERTENSION [I10] 08/08/2007 Osteoporosis [M81.0] 08/08/2007 INGROWING NAIL [L60.0] 02/05/2008 Unspecified Cellulitis and Abscess of Toe [L03.*02/02/2009 Impaired Fasting Blood Sugar [R73.01] 06/08/2009 Backache [M54.9] 01/25/2011 Pain in thoracic spine [M54.6] 02/03/2011 Abdominal pain, unspecified site [R10.9] 01/05/2012 Umbilical hernia without mention of obstruction*02/03/2012 Inguinal hernia without mention of obstruction *02/03/2012 Ankle fracture, left, open type I or II, initia*04/07/2020 Obesity, Class I, BMI 30-34.9 [E66.9] 04/08/2020 Disposition: Return in about 6 weeks (around 06/30/2020). Follow-up and Disposition History Recorded Encounter Status:Closed by ROHAN REDDING MD on 05/19/20 [facility] 05-04-2020 CNPN Telephone (AGPOB1) GABRIELA RAMON ([id number]) 1940 F Date Time Provider Department 05/04/20 ROHAN REDDING AGPOB1 During your visit today, we recorded the following information about you: Rosa Torres 05/04/2020 9:37 AM Signed [place] [facility] [phone] He is wanting to know what patients weightbearing status is and if she has any restrictions? Thank you, Rosa Torres May 04, 2020 9:36 AM Rosa Torres 05/04/2020 11:18 AM Signed Rohan Allen 31 minutes ago (10:44 AM) RAYMON KELLOGG is ok Message text I spoke to Caleb and gave him instructions. Rosa Torres May 04, 2020 11:18 AM Allergies As of Date: 05/04/2020 (No Known Allergies) Date Reviewed: 04/28/2020 Reviewed by: Rohan Redding - Fully Assessed Reason for Visit: Therapy Question [8620] Prescriptions as of 05/04/2020 Sig: ASPIRIN 81 MG TABLET,DELAYED * Take 1 tablet by mouth once d* ISOSORBIDE MONONITRATE ER 60 * Take 1 tablet by mouth once d* SIMVASTATIN 20 MG TABLET Take 1 tablet by mouth daily * MELOXICAM 15 MG TABLET Take 1 tablet by mouth once d* Patient not taking: Reported on 04/28/2020 HYDROCHLOROTHIAZIDE 25 MG TAB* Take 1 tablet by mouth once d* BENAZEPRIL 40 MG TABLET Take 1 tablet by mouth once d* AMLODIPINE 10 MG TABLET Take 1 tablet by mouth once d* ALENDRONATE 70 MG TABLET Take 1 tablet by mouth once e* Patient not taking: Reported on 04/28/2020 ATENOLOL 25 MG TABLET Take 1 tablet by mouth twice * Patient taking differently: Take 25 mg by mouth once lee* NYSTATIN 100,000 UNIT/GRAM TO* Apply 1 application to affect* BACLOFEN 10 MG TABLET Take 10 mg by mouth twice julian* Problem List As Of Date 05/04/2020 Noted Resolved Coronary atherosclerosis [I25.10] 08/08/2007 More... HYPERLIPIDEMIA NEC/NOS [E78.5] 08/08/2007 BENIGN HYPERTENSION [I10] 08/08/2007 Osteoporosis [M81.0] 08/08/2007 INGROWING NAIL [L60.0] 02/05/2008 Unspecified Cellulitis and Abscess of Toe [L03.*02/02/2009 Impaired Fasting Blood Sugar [R73.01] 06/08/2009 Backache [M54.9] 01/25/2011 Pain in thoracic spine [M54.6] 02/03/2011 Abdominal pain, unspecified site [R10.9] 01/05/2012 Umbilical hernia without mention of obstruction*02/03/2012 Inguinal hernia without mention of obstruction *02/03/2012 Ankle fracture, left, open type I or II, initia*04/07/2020 Obesity, Class I, BMI 30-34.9 [E66.9] 04/08/2020 Encounter Status:Closed by ROSA TORRES on 05/04/20 [facility] CNOVon 04-28-2020 CN Office Visit (AGPOB1 ) GABRIELA RAMON ([id number]) 1940 F Date Time Provider Department 04/28/20 10:30 AM ROHAN REDDINGB1 During your visit today, we recorded the following information about you: Respiration Weight Height 20/minute 83.9 kg 1.575 m Rohan Redding MD 04/28/2020 10:54 AM Signed Subjective: The patient returns today follow-up around [...] repeat x-rays and consider advancing her weightbearing. Yhvd-gcg-lzhrwyo pain medication. If she has any questions or concerns prior to the next appointment, she will contact the office. All questions answered. Referring Provider: EMERGENCY STAFF [facility] [[id number]] Allergies As of Date: 04/28/2020 (No Known Allergies) Date Reviewed: 04/28/2020 Reviewed by: Rohan Redding - Fully Assessed Reason for Visit: Post Op [174] Primary Visit Diagnosis:Ankle fracture, left, open type I or II, initial encounter [S82.892B] Prescriptions as of 04/28/2020 Sig: ASPIRIN 81 MG TABLET,DELAYED * Take 1 tablet by mouth once d* ISOSORBIDE MONONITRATE ER 60 * Take 1 tablet by mouth once d* SIMVASTATIN 20 MG TABLET Take 1 tablet by mouth daily * HYDROCHLOROTHIAZIDE 25 MG TAB* Take 1 tablet by mouth once d* BENAZEPRIL 40 MG TABLET Take 1 tablet by mouth once d* AMLODIPINE 10 MG TABLET Take 1 tablet by mouth once d* ATENOLOL 25 MG TABLET Take 1 tablet by mouth twice * Patient taking differently: Take 25 mg by mouth once lee* NYSTATIN 100,000 UNIT/GRAM TO* Apply 1 application to affect* BACLOFEN 10 MG TABLET Take 10 mg by mouth twice julian* MELOXICAM 15 MG TABLET Take 1 tablet by mouth once d* Patient not taking: Reported on 04/28/2020 ALENDRONATE 70 MG TABLET Take 1 tablet by mouth once e* Patient not taking: Reported on 04/28/2020 Problem List As Of Date 04/28/2020 Noted Resolved Coronary atherosclerosis [I25.10] 08/08/2007 More... HYPERLIPIDEMIA NEC/NOS [E78.5] 08/08/2007 BENIGN HYPERTENSION [I10] 08/08/2007 Osteoporosis [M81.0] 08/08/2007 INGROWING NAIL [L60.0] 02/05/2008 Unspecified Cellulitis and Abscess of Toe [L03.*02/02/2009 Impaired Fasting Blood Sugar [R73.01] 06/08/2009 Backache [M54.9] 01/25/2011 Pain in thoracic spine [M54.6] 02/03/2011 Abdominal pain, unspecified site [R10.9] 01/05/2012 Umbilical hernia without mention of obstruction*02/03/2012 Inguinal hernia without mention of obstruction *02/03/2012 Ankle fracture, left, open type I or II, initia*04/07/2020 Obesity, Class I, BMI 30-34.9 [E66.9] 04/08/2020 Disposition: Return in about 3 weeks (around 05/19/2020). Follow-up and Disposition History Recorded Encounter Status:Closed by ROHAN REDDING MD on 04/28/20 Normal [facility] NOVEL CORONAVIRUS NASOPHARYN GEAL - [facility] SPECIMEN ONLYon 04-27-2020 SARS-COV-2 NOT DETECTED Normal NOT DETECTED [facility] Comment on above: Order Comment: Submi tter Name: [facility] Agent Suspected: SARS-COV-2 This test was performed using real time PCR and has been approved for the qualitative detection of SARS-CoV-2 nucleic acid. The test has been authorized by the FDA under an emergency use authorization for use by authorized laboratories. Result Comment: Nega tive results do not preclude SARS-CoV-2 infection and should not be used as the sole basis for treatment or other patient management decisions. Optimum specimen types and timing for peak viral levels during infections caused by SARS-CoV-2 has not been determined. The possibility of a false negative result should especially be considered if the patient's recent exposures or clinical presentation suggest that SARS-CoV-2 infection is probable, and diagnostic tests for other causes of illness (e.g., other respiratory illness) are negative. Collection of a new specimen and re-testing may be necessary if the patient is critically ill or clinically deteriorating. Performed By: #### L [id number] #### [facility] ([facility]) [address] [place], [place] [address] CNOVon 04-21-2020 CNOV Office Visit (AGPOB1 ) GABRIELA RAMON ([id number]) 1940 F Date Time Provider Department 04/21/20 11:00 AM ROHAN REDDING AGPOB1 During your visit today, we recorded the following information about you: Respiration Weight Height 18/minute 83.9 kg 1.575 m Rohan Redding MD 04/21/2020 11:38 AM Signed Subjective: The patient returns today follow-up on [...] will see her back in 1 week. Urkw-izv-pdnpeej pain medication as necessary. Any problems prior to the next appointment, she will contact the office. All questions answered. Referring Provider: [facility] [[id number]] Allergies As of Date: 04/21/2020 (No Known Allergies) Date Reviewed: 04/21/2020 Reviewed by: Rohan Redding - Fully Assessed Reason for Visit: Post Op [174] Primary Visit Diagnosis:Ankle fracture, left, open type I or II, initial encounter [R74.843B] Order(s):XR ANKLE GENERAL 3V AP/LAT/OBL LT [[id number]] Order #: [id number] Prescriptions as of 04/21/2020 Sig: ASPIRIN 81 MG TABLET,DELAYED * Take 1 tablet by mouth once d* ISOSORBIDE MONONITRATE ER 60 * Take 1 [...] Take 1 tablet by mouth twice * Patient taking differently: Take 25 mg by mouth once lee* NYSTATIN 100,000 UNIT/GRAM TO* Apply 1 application to affect* BACLOFEN 10 MG TABLET Take 10 mg by mouth twice julian* Problem List As Of Date 04/21/2020 Noted Resolved Coronary atherosclerosis [I25.10] 08/08/2007 More... HYPERLIPIDEMIA NEC/NOS [E78.5] 08/08/2007 BENIGN HYPERTENSION [I10] 08/08/2007 Osteoporosis [M81.0] 08/08/2007 INGROWING NAIL [L60.0] 02/05/2008 Unspecified Cellulitis and Abscess of Toe [L03.*02/02/2009 Impaired Fasting Blood Sugar [R73.01] 06/08/2009 Backache [M54.9] 01/25/2011 Pain in thoracic spine [M54.6] 02/03/2011 Abdominal pain, unspecified site [R10.9] 01/05/2012 Umbilical hernia without mention of obstruction*02/03/2012 Inguinal hernia without mention of obstruction *02/03/2012 Ankle fracture, left, open type I or II, initia*04/07/2020 Obesity, Class I, BMI 30-34.9 [E66.9] 04/08/2020 Disposition: Return in about 1 week (around 04/28/2020). Follow-up and Disposition History Recorded Letter Text Encounter Status:Closed by ROHAN REDDING MD on 04/21/20 [facility] NOVEL CORONAVIRUS NASOPHARYN GEAL - [facility] SPECIMEN ONLYon 04-13-2020 SARS-COV-2 NOT DETECTED Normal NOT DETECTED [facility] Comment on above: Order Comment: Submi tter Name: [facility] Agent Suspected: SARS-COV-2 This test was performed using real time PCR and has been approved for the qualitative detection of SARS-CoV-2 nucleic acid. The test has been authorized by the FDA under an emergency use authorization for use by authorized laboratories. Result Comment: Nega tive results do not preclude SARS-CoV-2 infection and should not be used as the sole basis for treatment or other patient management decisions. Optimum specimen types and timing for peak viral levels during infections caused by SARS-CoV-2 has not been determined. The possibility of a false negative result should especially be considered if the patient's recent exposures or clinical presentation suggest that SARS-CoV-2 infection is probable, and diagnostic tests for other causes of illness (e.g., other respiratory illness) are negative. Collection of a new specimen and re-testing may be necessary if the patient is critically ill or clinically deteriorating. Performed By: #### L [id number] #### [facility] ([facility]) [address] [place] [address] CASE MANAGEMon 04-10-2020 CASE MANAGEM HNO ID: [id number] Author: April Gray (Sw) Service: ? Author Type: Engrosser Type: Care Mgt Progress Note Filed: 04/10/2020 3:27 PM Note Text: CARE MANAGEMENT DISCHARGE NOTE SERVICE DATE: 04/10/2020 SERVICE TIME: 3:23 PM LOS: 3 days Admission Date: 04/07/2020 DISCHARGE ARRANGEMENT (list agency and phone number) Discharge Arrangement: halfway facility Was an expedited discharge program used?: No Provider Name: Jagjit Phone: [phone] CAREGIVER ASSESSMENT: Caregiver is ready, willing and able to meet the patient's needs as recommended by the inter-professional team:: Yes Does the patient have an acute stroke diagnosis, or has the patient had a stroke during this admission?: No Patient's transition needs and plan for meeting these needs: [facility] HANDOFF COMMUNICATION: Handoff to: Primary Care Physician TRANSPORTATION ARRANGEMENTS: Transportation Arrangements: Ambulance/[employer] Agency and Phone #:: 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 Care Management Responsibility: None ADDITIONAL CONTACT RESOURCES: n/a Reviewed epic. Patient will discharge to [facility] at 7:30. Patient will discharge with [facility]. No other needs at this time. SIGNATURE: JALEESA Cano PATIENT NAME: Gabriela Ramon DATE: April 10, 2020 TIME: 3:22 PM PAGER/CONTACT #: [phone] [facility] CASE MANAGEM HNO ID: [id number] Author: April Gray (Sw) Service: ? Author Type: Engrosser Type: Care Mgt Progress Note Filed: 04/10/2020 3:11 PM Note Text: CARE MANAGEMENT PROGRESS NOTE SERVICE DATE: 04/10/2020 SERVICE TIME: 3:10 PM LOS: 3 days IMM Follow Up Copy Given: Yes Copy given to:: Patient Method: In Person Provided IMM letter at [facility]. SIGNATURE: JALEESA Cano PATIENT NAME: Gabriela Ramon DATE: April 10, 2020 TIME: 3:10 PM PAGER/CONTACT #: [phone] [facility] CNDSon 04-10-2020 CNDS HNO ID: [id number] Author: Damion Shay MD Service: Orthopaedic Surgery Author Type: Resident Type: Discharge Summary Filed: 04/12/2020 7:53 AM Note Text: Attestation signed by Rohan Redding at 04/13/2020 6:47 AM Agree with resident assessment and plan. DISCHARGE SUMMARY PATIENT NAME: Garbiela Ramon Code Status: Not on file Highest Readmission Risk Score: 13 The 30 day readmissions risk score is derived from an internally validated risk model which evaluates patient level characteristics, utilization history, medication orders and lab results up until the day of discharge. Patients with a score of 40 or above are considered highest risk for readmission. Specific patient level drivers will be listed at the bottom of the summary. Admission Information Admission Information ADMIT DATE: 04/07/2020 DISCHARGE DATE: 04/10/2020 MY DOCTORS AND MEDICAL TEAM: My Main Hospital Doctor: Rohan Redding Primary Care Provider: Stephanie Partida DO My Medical Team Members: Treatment Team: Attending Provider: Rohan Redding Consulting: Rohan Redding MY CONDITION AT DISCHARGE: Stable REASON I WAS IN THE HOSPITAL: L open ankle fracture SUMMARY OF WHAT HAPPENED WHILE I WAS IN THE HOSPITAL: The patient is a 79 year old Female who admitted by Dr. Redding for L open ankle fracture.? It was determined that the patient would benefit from surgery. The procedure, its risks, benefits, and potential complications were discussed in detail with the patient prior to surgery. Understanding of all topics was conveyed by the patient, and consent was given for surgery.? The patient was electively admitted on 04/07/2020. Surgery was scheduled and on 04/07/2020 the patient underwent irrigation and debridement with open reduction internal fixation of the L ankle.? The procedure was tolerated well and the patient was sent to the post-operative recovery room in stable condition, where they did well. The patient remained in PACU for post-op management. Once appropriate PACU criteria was met, patient was subsequently sent to the floors for postoperative management. ? Once on the floor the patient's postoperative course was monitored closely and did well.? Diet was advanced which was tolerated well.? Pain was well controlled and treated for DVT prophylaxis with 81 mg Aspirin. Pt was seen and evaluated by PT/OT. Dressings were appropriately managed during the stay. Pt was stable for discharge to SNF. ? Complete and comprehensive discharge instructions were provided to the patient as well as necessary prescriptions. The patient had no further questions and was advised to call with any questions, concerns, or problems. ? Patient was hemodynamically stable postoperatively. OTHER PROBLEMS/DIAGNOSIS: Active Problems: Ankle fracture, left, open type I or II, initial encounter Obesity, Class I, BMI 30-34.9 Resolved Problems: * No resolved hospital problems. * OPERATIONS PERFORMED WHILE IN THE HOSPITAL: IANDD and ORIF L ankle IMPORTANT TEST/PROCEDURES: No procedures performed TEST RESULTS NOT AVAILABLE AT THIS TIME: No pending results Discharge Disposition Discharge Disposition: [facility] Facility - Less than 30 Days Activity When You Leave the Hospital Go home and rest. Resume normal activity after: Follow up with Dr. Redding May walk with a cane May walk with a walker May walk with crutches No baths or showers for: No showers for 3 days, no baths for 10 days after surgery Weight-bearing limited to: Nonweight bearing to L leg Diet Instructions After general anesthetic, your stomach may be sensitive. Begin slowly by drinking water, then clear liquids, and then a light meal Resume your pre-hospital diet For Pain When You Leave the Hospital Apply a covered cold pack to the area If you become constipated, you may use any rgwb-nto-uvxbpir treatment such as Milk of Magnesia, Sennakot, Prune Juice, Suppositories, etc. in addition to the stool softener/fiber supplement Keep area at rest and elevate it to reduce pain and swelling No alcohol or driving while on pain medication Use the dispensed medication (see prescription) You should use an suqq-suq-siidnxt stool softener (Docusate sodium) and/or a fiber supplement (Metamucil, Fiber Con) every day while taking prescribed pain medication Wound/Surgical Site Care Apply ice packs as needed It is normal to have swelling, mild bruising, blood on the steri-strips, numbness and firmness around the incision Keep your dressing clean and dry Remove old dressing, shower, pat dry, and apply clean dressing Some bleeding from the wound/surgical site can be expected. If excessive, see a doctor at once Wash your hands frequently, especially befo (more content not included)... Normal [facility] SARS-CoV-2 RNA Resp Ql EVY+p mathieu 04-10-2020 SARS-CoV-2 (COVID-19) RNA EVY+probe Ql (Resp) COVID 19 RESULT: SARS-CoV-2 (Agent of COVID-19) Not Detected by PCR. This test has been authorized by FDA under an Emergency Use Authorization (EUA) Normal [facility] Comment on above: Performed By: #### [id number] ####[facility] [id number] [place] [address] THERAPY NTon 04-10-2020 THERAPY NT HNO ID: [id number] Author: Aby Monzon Service: Physical Therapy Author Type: Material Attendant Type: Therapy (PT/OT/Speech/Resp) Filed: 04/10/2020 2:14 PM Note Text: Attestation signed by Mariann VillegasPt) Jonathan at 04/10/2020 2:59 PM I reviewed and agree with the documentation corresponding to this therapy visit. SIGNATURE: Mariann Castillo, PT DATE: April 10, 2020 TIME: 2:59 PM Physical Therapy Treatment SERVICE DATE: 04/10/2020 SERVICE TIME: 1307 to 1345 ROOM: [id number] Recommended Discharge Disposition: Subacute/SNF Recommended Discharge Disposition Comments: pt normally indep and active at home Justification For Post Acute Needs: Anticipate that patient will require daily (5x/wk) skilled therapy in a post-acute facility setting at the time of acute hospital discharge;Motivated;Willing to participate PT 6 Clicks Score: 14 Precautions/Activity Restrictions: Fall Risk;Weight Bearing Restrictions Extremity With Weight Bearing Restricted: Left Lower Extremity Left Lower Extremity Weight Bearing Status: NWB Current Hospital Course: found to have ankle fx; s/p ORIF 04/07 Reason for Hospital Admission: slipped on wet grass and fractured ankle Relevant Past Medical History: back pain, OP Response to Therapy Interventions: Good participation in activities, Needs frequent redirection or re-instruction, Requires additional time to complete activities, Requires encouragement to complete activities Continue skilled needs due to: Continued monitoring of vital signs during mobility required, Functional mobility/skill impairments, Safety concerns Physical Therapy Problem List: Decreased Activity Tolerance;Decreased Range Of Motion;Decreased Strength;Functional Mobility Impairment;Balance Impaired;Safety Deficits Treatment Interventions: Education;Joint Mobility;Strengthening;Func tional Mobility Training;Balance Training Educated patient on her weight bearing limitations and need to use walking boot. Made attempts to don walking boot but patient unable to tolerate getting her left ankle to neutral or properly in boot at this time, staff notified. Patient challenged with maintaining non weight bearing status on her left foot today or to transfer/hop on her right foot today with the walker. Patient is well below baseline and would benefit with skilled therapy to improve strength and safety with ADL's to minimize fall risk. Home Environment Patient Lives With: Self/Alone Assistance Available: None Entry To Home: Stairs Number Of Stairs Into Home: 5 Equipment Owned: Cane Prior Functional Level: Within Functional Limits Prior Functional Level Comments: normally indep Patient Report: I have to use the restroom CURRENT FUNCTIONAL STATUS: Most recent performance mobility performed during session in bold, other mobility completed during prior session and may no longer be correct or appropriate to complete. Current Functional Mobility Assist Level Additional Information Rolling Contact Guard Assistance;Additional Information logroll to her left with use of rail Supine to Sit Minimal Assistance;Additional Information cues for upper extremity placement/use, needs assist with management of her left leg Sit to Supine Moderate Assistance;Additional Information cues to lower down to her left shoulder and to raise legs into bed. Patient needs assist to return both legs into bed Scooting Minimal Assistance Sit to Stand Minimal Assistance;Additional Information cues to push up from bed surface, keep her left foot forward and off the floor, get her nose over her toes Stand to Sit Minimal Assistance;Additional Information cues to reach back for bed/BSC and sit slowly Bed to Chair Moderate Assistance;Additional Information Bed To Chair Transfer Type: Stand Pivot Bed To Chair Transfer Equipment: Wheeled Walker;Gait Belt made 3 attempts, patient unable to transfer with use of walker or keep NWB of her left foot; stand pivot with cues for placement of her right foot and hands Toilet/Commode Minimal Assistance;Additional Information assist with hygiene while standing with wheeled walker Gait Minimal Assistance Gait Device: Wheeled Walker Gait Distance (feet): 5x2 Stairs Curb Step Car Transfer Blank gibson indicate activity not attempted Gait Deviations Left Lower Extremity: Weight bearing decreased(NWB) Balance: Static Sitting;Dynamic Sitting;Static Standing;Dynamic Standing Static Sitting Balance: Good Patient able to maintain balance without handhold support, limited postural sway Dynamic Sitting Balance: Fair Patient accepts minimal challenge, able to maintain balance while turning head/trunk Static Standing Balance: Poor Patient requires handhold support and moderate to (more content not included)... Normal [facility] THERAPY NTon 04-09-2020 THERAPY NT HNO ID: [id number] Author: Clarisa VillegasPt) Thi Service: Physical Therapy Author Type: Physical Therapist Type: Therapy (PT/OT/Speech/Resp) Filed: 04/09/2020 3:04 PM Note Text: Physical Therapy Treatment SERVICE DATE: 04/09/2020 SERVICE TIME: 1415 to 1445 ROOM: [place] [address] Recommended Discharge Disposition: Subacute/SNF Recommended Discharge Disposition Comments: pt normally indep and active at home Justification For Post Acute Needs: Anticipate that patient will require daily (5x/wk) skilled therapy in a post-acute facility setting at the time of acute hospital discharge;Motivated;Willing to participate PT 6 Clicks Score: 16 Precautions/Activity Restrictions: Fall Risk;Weight Bearing Restrictions Extremity With Weight Bearing Restricted: Left Lower Extremity Left Lower Extremity Weight Bearing Status: NWB Current Hospital Course: found to have ankle fx; s/p ORIF 04/07 Reason for Hospital Admission: slipped on wet grass and fractured ankle Relevant Past Medical History: back pain, OP Response to Therapy Interventions: Good participation in activities Continue skilled needs due to: Continued monitoring of vital signs during mobility required, Functional mobility/skill impairments, Safety concerns Physical Therapy Problem List: Decreased Activity Tolerance;Decreased Range Of Motion;Decreased Strength;Functional Mobility Impairment;Balance Impaired;Safety Deficits Treatment Interventions: Education;Joint Mobility;Strengthening;Func tional Mobility Training;Balance Training Home Environment Patient Lives With: Self/Alone Assistance Available: None Entry To Home: Stairs Number Of Stairs Into Home: 5 Equipment Owned: Cane Prior Functional Level: Within Functional Limits Prior Functional Level Comments: normally indep Patient Report: Pain in left ankle 4/10, with movement had left quad tightness CURRENT FUNCTIONAL STATUS: Most recent performance Current Functional Mobility Assist Level Additional Information Rolling Supine to Sit Minimal Assistance needs cues to use arms, assit to left ankle Sit to Supine Scooting Minimal Assistance Sit to Stand Minimal Assistance needs cues to use walker correctly and increased time to come to full upright position, maintaining NWB left Stand to Sit Minimal Assistance needs cues to reach back for arm rests, back up to chair/BSC Bed to Chair Minimal Assistance Bed To Chair Transfer Type: Stand Pivot Bed To Chair Transfer Equipment: Wheeled Walker instruct in safety with transfer Toilet/Commode Minimal Assistance Gait Minimal Assistance Gait Device: Wheeled Walker Gait Distance (feet): 5x2 Stairs Curb Step Car Transfer Blank gibson indicate activity not attempted Gait Deviations Left Lower Extremity: Weight bearing decreased(NWB) JH-HLM: 4: Move to chair / commode Learning/Educational Needs: Discharge Plan;Family Education/Training;Function al Activities/Mobility;Plan of Care;Precautions;Safety Goals for Plan of Care: Patient /Caregiver Goals: Go Home Transfer supine to/from sit with: Stand By Assistance Transfer sit to/from stand with: Stand By Assistance Ambulate with: Stand By Assistance Distance: 20x2 Device: Wheeled Walker Goal: 2x10 reps bilat LE general stregthening exercises Progress Toward Goals: Progressing as expected Rehab Potential: Good Patient will be discontinued from Physical Therapy when no further skilled needs are identified in this setting. PLAN: Treatment Frequency (times per week): 7(4-7) Current admission Plan of Care developed with: Patient TREATMENT INTERVENTIONS: Therapy Diagnosis: Reduced mobility-other;Unsteadiness on feet;Abnormalities of gait and mobility-other Interventions Provided: Therapeutic Exercise (82349);Gait Training (64005) Therapeutic Exercise (34435) Treatment Minutes: 15 $ Therapeutic Exercise (38076) Billed Units: 1 unit Instructed patient with AP (right LE), QS, GS, heel slide with assist for left leg, SLR with assist 2 x 10 reps. Patient reports left quad and hip flexor are really tight, she feels good moving it, but it cramped slightly. Able to do LAQ 2 x 10 reps in sitting. Gait Training (28344) Treatment Minutes: 15 $ Gait Training (08437) Billed Units: 1 unit Patient needs cues to use wheeled walker correctly and safely while maintaining NWB left leg. Able to take steps to chair, then to BSC and back to chair with min assist and verbal cues. Fatigues quickly. Training AND education provided in: Assistive device use, Benefits of in-hospital mobility, Edema management, Exercise program instruction The following therapeutic skills were used: Activity dosing, Cuing tactile, Cuing verbal, Movement facilitation, Muscle activation facilitation, Physical assist Total Timed Code Treatment Minutes: 30 Total Treatment Time (minutes): 30 Please see discipline specific clinical documentation flowsheet for complete details for this t (more content not included)... Normal [facility] Basic metabolic 2000 panelon 04-08-2020 Anion gap [Moles/Vol] 10 mmol/L Normal 9-18 [facility] Comment on above: Order Comment: Speci men Type: BLOOD SPECIMEN Performed By: #### 2 4321-2 #### [facility] CLIA [id number] [address] [place] [address] Calcium [Mass/Vol] 9.1 mg/dL Normal 8.5-10.2 [facility] Comment on above: Order Comment: Speci men Type: BLOOD SPECIMEN Performed By: #### 2 4321-2 #### [facility] CLIA [id number] [address] [place] [address] Chloride [Moles/Vol] 100 mmol/L Normal 97-105 [facility] Comment on above: Order Comment: Speci men Type: BLOOD SPECIMEN Performed By: #### 2 4321-2 #### [facility] CLIA [id number] [address] [place] [address] CO2 [Moles/Vol] 24 mmol/L Normal 22-30 [facility] Comment on above: Order Comment: Speci men Type: BLOOD SPECIMEN Performed By: #### 2 4321-2 #### [facility] CLIA [id number] [address] [place] [address] Creatinine [Mass/Vol] 0.86 mg/dL Normal 0.58-0.96 [facility] Comment on above: Order Comment: Speci men Type: BLOOD SPECIMEN Performed By: #### 2 4321-2 #### [facility] CLIA [id number] [address] [place] [address] GFR/1.73 sq M.predicted MDRD (S/P/Bld) [Vol rate/Area] mL/min/{1.73_m2} Normal [facility] Comment on above: Order Comment: Speci men Type: BLOOD SPECIMEN Result Comment: >60 eGFR (Estimated GFR) Units of measure: mL/min/1.73 meters squared eGFR is derived from the reexpressed MDRD Study equation using the following parameters: serum creatinine, age, gender and race. The creatinine assay has been calibrated to be traceable to IDMS. An eGFR <60 mL/min/1.73m2 for >3 months is consistent with chronic kidney disease. Refer to KDOQI guidelines for clinical interpretation. In patients with unstable renal function, e.g. those with acute kidney injury, the eGFR may not accurately reflect actual GFR. Performed By: #### 2 4321-2 #### [facility] CLIA [id number] [address] [place] [address] Glucose [Mass/Vol] 212 mg/dL High 74-99 [facility] Comment on above: Order Comment: Speci men Type: BLOOD SPECIMEN Result Comment: The [place] Diabetes Association (ADA) provides guidance for cutoff values for fasting glucose and random glucose. The ADA defines fasting as no caloric intake for at least 8 hours. Fasting plasma glucose results between 100 to 125 mg/dL indicate increased risk for diabetes (prediabetes). Fasting plasma glucose results greater than or equal to 126 mg/dL meet the criteria for diagnosis of diabetes. In the absence of unequivocal hyperglycemia, results should be confirmed by repeat testing. In a patient with classic symptoms of hyperglycemia or hyperglycemic crisis, random plasma glucose results greater than or equal to 200 mg/dL meet the criteria for diagnosis of diabetes. Reference: Standards of Medical Care in Diabetes 2016, [place] Diabetes Association. Diabetes Care. 2016.39(Suppl 1). Performed By: #### 2 4321-2 #### [facility] CLIA [id number] [address] [place] [address] Potassium [Moles/Vol] 4.5 mmol/L Normal 3.7-5.1 [facility] Comment on above: Order Comment: Speci men Type: BLOOD SPECIMEN Performed By: #### 2 4321-2 #### [facility] CLIA [id number] [address] [place] [address] Sodium [Moles/Vol] 134 mmol/L Low 136-144 [facility] Comment on above: Order Comment: Speci men Type: BLOOD SPECIMEN Performed By: #### 2 4321-2 #### [facility] CLIA [id number] [address] [place] [address] Urea nitrogen [Mass/Vol] 17 mg/dL Normal 7-21 [facility] Comment on above: Order Comment: Speci men Type: BLOOD SPECIMEN Performed By: #### 2 4321-2 #### [facility] CLIA [id number] [address] [place] [address] CASE MGT INIT Shine 2019 CASE MGT INIT HUMBERTO HNO ID: [id number] Author: Adelita VillegasRn) CATRACHITO Mariano Service: ? 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 Last discharge within 30 days: No Advance Directive: Current Advance Directive: None Credit Compliance Officer Attempted to Assist with AD Completion: Yes Action: Patient Unwilling Health LiteracyHow often do you need to have someone help you when you read instructions, pamphlets, or other written material from your doctor or pharmacy? : 1 - Never How confident are you filling out medical forms by yourself?: 1 - Extremely If Patient scores > 3 on either question, the following interventions were put into place:: Patient did not score > 3 on either question. Baseline Mental Status Prior to this Illness what was the patient's Baseline Mental Status?: Alert AND Oriented Prior to this illness, has anyone described the patient having any of the following behaviors?: Not Applicable Relationship of the informant to the patient:: Self Functional Status: Independent Does Patient Currently Receive Any Community Services or Home Care?: None Equipment Prior to Admission: None Has the Patient Been in a [facility] Facility in the Past 30 days?: No SOCIAL: Living Arrangements: Home Lives With: Alone Financial Resources: Retired Primary Contact: Extended Emergency Contact Information Primary Emergency Contact: [place] Relation: Brother Supportive Patient Contact:: Yes Contact Resources: Family Family Name/Phone: brother and cousin Social Needs Food insecurity Worry: Never true Inability: Never true Resources Needed: No Social Needs Financial resource strain: Not hard at all Social Needs Transportation needs Medical: No Non-medical: No Caregiver AssessmentCaregiver is ready, willing and able to meet the patient's needs as recommended by the inter-professional team:: Yes Does the patient have an acute stroke diagnosis, or has the patient had a stroke during this admission?: No Patient's transition needs and plan for meeting these needs: SNF Patient's perception of need for this admission: ankle surgery Medication Adherance I am convinced of the importance of my prescription medication: 0 - Agree Completely I worry that my prescription medication will do more harm than good to me : 0 - Disagree Completely I feel financially burdened by my [id number]-ssgdyd expenses for my prescription medication:: 0 - Disagree Completely Risk Score: 0 Patient is categorized as: Low risk < 2 Are you interested in bedside delivery of your medications? No Is Patient Psychosocially Complex?: No ASSESSMENT AND PLAN: Medical Needs: Medical Needs: None Psychosocial Needs: Psychosocial Needs: None FREEDOM OF CHOICE EXPLAINED: [employer] of Choice Given: Yes Level of Care Discussed: [facility] Facility Financial Disclosure Provided: Yes Financial Disclosure Comments: affiliates Provider List: [facility] Facility Provider list within the patient's requested geographic area shared with the patient/family: Yes within: 25 miles of zip code: [address] Quality and resource use metrics shared with the patient that are relevant to the patient's goals of care and treatment preferences:: Yes Metrics: Potentially Preventable 30-day Post Discharge Readmission Rates;Skin Integrity;Incidence of Major Falls POTENTIAL TRANSITION PLANS [facility] Facility/Intermediate Care Facility Met with pt, explained CM role. 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 Drives. Discussed PT/OT recommendation for SNF and she is agreeable. Her preference if for [facility] SNF - referral created. Also given SNF choice list with request for 2 additional choices for a back up plan. States her family can provide transport to SNF. SIGNATURE: Adelita Mariano RN PATIENT NAME: Gabriela Ramon DATE: April 08, 2020 TIME: 3:14 PM PAGER/CONTACT #: [phone] Normal [facility] CBC panel Auto (Bld)on 04-08 Erythrocyte distribution width (RBC) [Ratio] 12.1 % Normal 11.5-15.0 [facility] Comment on above: Order Comment: Speci men Type: BLOOD SPECIMEN Performed By: #### 5 8410-2 #### [facility] CLIA [id number] [address] [place] [address] Hematocrit (Bld) [Volume fraction] 41.3 % Normal 36.0-46.0 [facility] Comment on above: Order Comment: Speci men Type: BLOOD SPECIMEN Performed By: #### 5 8410-2 #### [facility] CLIA [id number] [address] [place] [address] Hemoglobin (Bld) [Mass/Vol] 13.9 g/dL Normal 11.5-15.5 [facility] Comment on above: Order Comment: Speci men Type: BLOOD SPECIMEN Performed By: #### 5 8410-2 #### [facility] CLIA [id number] [address] [place] [address] MCH (RBC) [Entitic mass] 30.8 pg Normal 26.0-34.0 [facility] Comment on above: Order Comment: Speci men Type: BLOOD SPECIMEN Performed By: #### 5 8410-2 #### [facility] CLIA [id number] [address] [place] [address] MCHC (RBC) [Mass/Vol] 33.7 g/dL Normal 30.5-36.0 [facility] Comment on above: Order Comment: Speci men Type: BLOOD SPECIMEN Performed By: #### 5 8410-2 #### [facility] CLIA [id number] [address] [place] [address] MCV (RBC) [Entitic vol] 91.6 fL Normal 80.0-100.0 [facility] Comment on above: Order Comment: Speci men Type: BLOOD SPECIMEN Performed By: #### 5 8410-2 #### [facility] CLIA [id number] [address] [place] [address] Nucleated RBC (Bld) [#/Vol] 10*3/uL Normal <0.01 [facility] Comment on above: Order Comment: Speci men Type: BLOOD SPECIMEN Performed By: #### 5 8410-2 #### [facility] CLIA [id number] [address] [place] [address] Platelet mean volume (Bld) [Entitic vol] 9.5 fL Normal 9.0-12.7 [facility] Comment on above: Order Comment: Speci men Type: BLOOD SPECIMEN Performed By: #### 5 8410-2 #### [facility] CLIA [id number] [address] [place] [address] Platelets (Bld) [#/Vol] 205 10*3/uL Normal 150-400 [facility] Comment on above: Order Comment: Speci men Type: BLOOD SPECIMEN Performed By: #### 5 8410-2 #### [facility] CLIA [id number] [address] [place] [address] RBC (Bld) [#/Vol] 4.51 10*6/uL Normal 3.90-5.20 [facility] Comment on above: Order Comment: Speci men Type: BLOOD SPECIMEN Performed By: #### 5 8410-2 #### [facility] CLIA [id number] [address] [place] [address] WBC (Bld) [#/Vol] 13.16 10*3/uL High 3.70-11.00 [facility] Comment on above: Order Comment: Speci men Type: BLOOD SPECIMEN Performed By: #### 5 8410-2 #### [facility] CLIA [id number] [address] [place] [id number] CONFIRM BLOOD TYPEon 020 ABO A Normal [facility] Comment on above: Order Comment: Speci men Type: BLOOD SPECIMEN Performed By: #### C ONABO #### [facility] CLIA [id number] Rh Nom (Bld) Negative Normal [facility] Comment on above: Order Comment: Speci men Type: BLOOD SPECIMEN Performed By: #### C ONABO #### [facility] CLIA [id number] OBSOLETEon 04-08-2020 OBSOLETE Refill ([facility]) GABRIELA RAMON ([id number]) 1940 F Date Time Provider Department 04/08/20 DONAVON DIAZ (JAXON) ADRIEN During your visit today, we recorded the following information about you: Allergies As of Date: 04/08/2020 (No Known Allergies) Date Reviewed: 04/07/2020 Reviewed by: Rosey (Rn) CATRACHITO Green - Fully Assessed Reason for Visit: Refill Request [94] Prescriptions as of 04/08/2020 Sig: CELECOXIB 200 MG CAPSULE Take 200 mg by mouth twice da* ISOSORBIDE MONONITRATE ER 60 * Take 1 [...] Take 1 tablet by mouth twice * Patient taking differently: Take 25 mg by mouth once lee* NYSTATIN 100,000 UNIT/GRAM TO* Apply 1 application to affect* BACLOFEN 10 MG TABLET Take 10 mg by mouth twice julian* HYDROCODONE 5 MG-ACETAMINOPHE* Take 1 tablet by mouth every * * ECOTRIN LOW STRENGTH 81 MG TA* Take one(1) tablet daily. Problem List As Of Date 04/08/2020 Noted Resolved Coronary atherosclerosis [I25.10] 08/08/2007 More... HYPERLIPIDEMIA NEC/NOS [E78.5] 08/08/2007 BENIGN HYPERTENSION [I10] 08/08/2007 Osteoporosis [M81.0] 08/08/2007 INGROWING NAIL [L60.0] 02/05/2008 Unspecified Cellulitis and Abscess of Toe [L03.*02/02/2009 Impaired Fasting Blood Sugar [R73.01] 06/08/2009 Backache [M54.9] 01/25/2011 Pain in thoracic spine [M54.6] 02/03/2011 Abdominal pain, unspecified site [R10.9] 01/05/2012 Umbilical hernia without mention of obstruction*02/03/2012 Inguinal hernia without mention of obstruction *02/03/2012 Ankle fracture, left, open type I or II, initia*04/07/2020 Obesity, Class I, BMI 30-34.9 [E66.9] 04/08/2020 Encounter Status:Closed by DONAVON DIAZ CNP on 04/08/20 [facility] THERAPY NTon 04-08-2020 THERAPY NT HNO ID: [id number] Author: Lu Peralta/Chris Jimenez OT Service: Occupational Therapy Author Type: Occupational Therapist Type: Therapy (PT/OT/Speech/Resp) Filed: 04/08/2020 10:51 AM Note Text: Occupational Therapy Evaluation SERVICE DATE: 04/08/2020 SERVICE TIME: 1015 to 9510 ROOM: [id number] Recommended Discharge Disposition: Subacute/SNF Justification For Post Acute Needs: Cognition intact;Good premorbid functional status;Living the community premorbidly;Willing to participate OT 6 Clicks Score: 16 Precautions/Activity Restrictions: Fall Risk;Weight Bearing Restrictions Extremity With Weight Bearing Restricted: Left Lower Extremity Left Lower Extremity Weight Bearing Status: NWB Current Hospital Course: found to have ankle fx; s/p ORIF 04/07 Reason for Hospital Admission: slipped on wet grass and fractured ankle Relevant Past Medical History: back pain, OP Response to Therapy Interventions: Good participation in activities Continue skilled needs due to: Functional impairment Occupational Therapy Problem List: Impaired Self Care;Decreased Activity Tolerance;Functional Mobility Impairment Cognition/Communication Deficits Responsiveness: Alert Follows Commands: 3-step Commands Treatment Interventions: Education;Self Care / Home Management;Functional Mobility Training Plan for next visit: Bathing training, Chair/commode transfer training, Dressing training, Fall prevention, Sit to stand transfers, Standing balance, Standing tolerance, Toileting instruction Home Environment Patient Lives With: Self/Alone Assistance Available: None Entry To Home: Stairs Number Of Stairs Into Home: 5 Equipment Owned: Cane Prior Functional Level: Within Functional Limits Prior Functional Level Comments: normally indep Patient Report: Pt reports slight pain in foot CURRENT FUNCTIONAL STATUS: Most recent performance Current Activities of Daily Living Assist Level Additional Information Feeding Independent Grooming Set Up(seated only at this time) Bathing Upper Body Set Up Bathing Lower Body Maximal Assistance Dressing Upper Body Independent Dressing Lower Body Maximal Assistance Educated pt on LB dressing technique 'first in, last out' for affected LE to increase independence with this ADL task. Toileting Maximal Assistance Facilitated safe stand pivot transfer to/from bedside commode to increase independence with toileting task. Instructed patient to use bedside commode for toileting needs once lester catheter discontinued. Instrumental Activities of Daily Living Assist Level Additional Information Meal/Beverage Prep Cleaning Laundry Medication Management with Strategies Functional Mobility Assist Level Additional Information Rolling Supine to Sit Sit to Supine Scooting Sit to Stand Minimal Assistance Provided min verbal cuing for proper hand placement during transfer. Stand to Sit Minimal Assistance Bed to Chair Minimal Assistance Stand Pivot Wheeled Walker Toilet/Commode Minimal Assistance;Additional Information stand pivot to/from BSC with walker Provided min verbal cuing for proper hand/body placement during stand pivot transfer from chair to bedside commode to chair. Provided fall guarding to ensure safety due to NWB status in L LE. Pt unable to ambulate further than stand pivot due to difficulty weight bearing full weight on R LE. Functional Mobility Blank gibson indicate activity not attempted Activity Tolerance: Standing Activity Standing Activity: stand pivot transfer from [id number] Standing Activity Tolerance (in minutes): 3 Learning/Educational Needs: Discharge Plan;Disease Process Goals for Plan of Care: Patient /Caregiver Goals: Care For Self Grooming with: Contact Guard Assistance(standing sinkside) Upper Body Bathing with: Modified Independent Upper Body Dressing with: Independent Lower Body Bathing with: Moderate Assistance Lower Body Dressing with: Moderate Assistance Toilet Hygiene with: Moderate Assistance Chair Transfer with: Contact Guard Assistance Toilet Transfer with: Contact Guard Assistance Tolerate (minutes of functional activity): 20 Functional Activity with: Contact Guard Assistance Demonstrate Competence With Education with: Independent Rehab Potential: Good Patient will be discontinued from Occupational Therapy when no further skilled needs are identified in this setting. PLAN: Treatment Frequency (times per week): 3(1-3) Current admission Plan of Care developed with: Patient TREATMENT INTERVENTIONS: Therapy Diagnosis: Reduced mobility-other;Decreased activities of daily living (ADL) Interventions Provided: Evaluation;Self Fpc Management (03651) $ Evaluation-Low (15719) Billed Units: 1 unit Self Fpc Management (16808) Treatment Minutes: 8 $ Self Fpc Management (24111) Billed Units: 1 unit Training AND education provided in: Activity adaption / compensato (more content not included)... Normal [facility] THERAPY NT HNO ID: [id number] Author: Mariann (Pt) Jonathan Service: Physical Therapy Author Type: Physical Therapist Type: Therapy (PT/OT/Speech/Resp) Filed: 04/08/2020 10:41 AM Note Text: Physical Therapy Evaluation SERVICE DATE: 04/08/2020 SERVICE TIME: 956 to 0 ROOM: [id number] Recommended Discharge Disposition: Subacute/SNF Recommended Discharge Disposition Comments: pt normally indep and active at home Justification For Post Acute Needs: Anticipate that patient will require daily (5x/wk) skilled therapy in a post-acute facility setting at the time of acute hospital discharge;Motivated;Willing to participate PT 6 Clicks Score: 16 Precautions/Activity Restrictions: Fall Risk;Weight Bearing Restrictions Extremity With Weight Bearing Restricted: Left Lower Extremity Left Lower Extremity Weight Bearing Status: NWB Current Hospital Course: found to have ankle fx; s/p ORIF 04/07 Reason for Hospital Admission: slipped on wet grass and fractured ankle Relevant Past Medical History: back pain, OP Response to Therapy Interventions: Good participation in activities, Low activity tolerance, Pain, Requires additional time to complete activities Continue skilled needs due to: Functional mobility/skill impairments, Safety concerns Physical Therapy Problem List: Decreased Activity Tolerance;Decreased Range Of Motion;Decreased Strength;Functional Mobility Impairment;Balance Impaired;Safety Deficits Treatment Interventions: Education;Joint Mobility;Strengthening;Func tional Mobility Training;Balance Training Home Environment Patient Lives With: Self/Alone Assistance Available: None Entry To Home: Stairs Number Of Stairs Into Home: 5 Equipment Owned: Cane Prior Functional Level: Within Functional Limits Prior Functional Level Comments: normally indep Patient Report: c/o L ankle pain but agreeable to PT/mobility CURRENT FUNCTIONAL STATUS: Most recent performance Current Functional Mobility Assist Level Additional Information Rolling Supine to Sit Minimal Assistance;Additional Information instruct in hand placement and safety Sit to Supine Scooting Sit to Stand Minimal Assistance;Additional Information instruct in hand placement and safety Stand to Sit Minimal Assistance;Additional Information instruct in hand placement and safety Bed to Chair Minimal Assistance;Additional Information Bed To Chair Transfer Type: Stand Pivot Bed To Chair Transfer Equipment: Wheeled Walker;Gait Belt instruct in safety with transfer Toilet/Commode Gait Minimal Assistance;Additional Information Gait Device: Wheeled Walker Gait Distance (feet): instruct in safety and NWB LLE instruct in sequencing and safety Stairs Curb Step Car Transfer Gait Deviations Left Lower Extremity: Weight bearing decreased(NWB) Range of Motion: ROM Limitation Comments ROM Limitation Comments: left knee ROM limited; L ankle in MICHELLE wrap JH-HLM: 4: Move to chair / commode Learning/Educational Needs: Discharge Plan;Family Education/Training;Function al Activities/Mobility;Plan of Care;Precautions;Safety Goals for Plan of Care: Patient /Caregiver Goals: Go Home Transfer supine to/from sit with: Stand By Assistance Transfer sit to/from stand with: Stand By Assistance Ambulate with: Stand By Assistance Distance: 20x2 Device: Wheeled Walker Goal: 2x10 reps bilat LE general stregthening exercises Rehab Potential: Good PLAN: Treatment Frequency (times per week): 7(4-7) Current admission Plan of Care developed with: Patient TREATMENT INTERVENTIONS: Therapy Diagnosis: Reduced mobility-other;Unsteadiness on feet;Abnormalities of gait and mobility-other Interventions Provided: Evaluation;Therapeutic Activity (15659) $ Evaluation-Moderate (01951) Billed Units: 1 unit Therapeutic Activity (33614) Treatment Minutes: 8 $ Therapeutic Activity (94488) Billed Units: 1 unit Instruct in supine AROM exercises RLE AP, heel slide, hip abd/add and SLR; LLE heel slide, hip abd/add and SLR Instruct in safety with functional mobility including bed mobility, transfers and gait--instruct in mobility and following NWB LLE Training AND education provided in: Bed mobility, Benefits of in-hospital mobility, Discharge planning, Disease specific education, Gait pattern, reduction of deviations, Home safety, Role of Physical Therapy, Positioning, Sitting balance, Standing balance, Transfer training The following therapeutic skills were used: Activity dosing, Cues for sequencing/proper technique for activity, Physical assist Total Timed Code Treatment Minutes: 8 Total Treatment Time (minutes): 23 Please see discipline specific clinical documentation flowsheet for complete details for this therapy evaluation/treatment. SIGNATURE: Mariann Castillo PT PATIENT NAME: Gabriela Ramon DATE: April 08, 2020 TIME: 10:37 AM [facility] HNO [facility] [id number] Author: Gwyn VillegasRt) Kelly Ruano Service: Radiology Author Type: Wet End Supervisor Type: [facility] Filed: 04/07/2020 7:30 PM Note Text: Radiology Service Progress Note PATIENT NAME: Gabriela Ramon DATE OF SERVICE: April 07, 2020 TIME: 7:29 PM PATIENT IDENTITY VERIFICATION COMPLETED USING TWO (2) IDENTIFIERS: Name and Date of confirmed by identification band. FALL SCREENING: Has the patient had 2 falls in the last year or 1 fall with injury or currently using an Ambulatory Assistive Device (Walker, Cane, Wheelchair, Crutches, etc.)? Inpatient: Screened on floor PATIENT GENDER DATA: Female. status: : No status: N/A PATIENT RELEVANT IMPLANT DATA REVIEWED: Not Applicable RADIOLOGY DEPARTMENT: General X-ray: Exam(s) Completed: Lower Extremity X-Ray(s): Ankle, Left: PERIPHERAL IV DATA: Not applicable SIGNED BY: RT Erick April 07, 2020 7:29 PM [facility] HNO ID: [id number] Author: Felix VillegasRtKelly Cook Service: Radiology Author Type: Wet End Supervisor Type: [facility] Filed: 04/07/2020 6:16 PM Note Text: Radiology Service Progress Note PATIENT NAME: Gabriela Ramon DATE OF SERVICE: April 07, 2020 TIME: 6:16 PM PATIENT IDENTITY VERIFICATION COMPLETED USING TWO (2) IDENTIFIERS: Name and Date of obtained from a relative, guardian or prior caregiver.. FALL SCREENING: Has the patient had 2 falls in the last year or 1 fall with injury or currently using an Ambulatory Assistive Device (Walker, Cane, Wheelchair, Crutches, etc.)? Inpatient: Screened on floor PATIENT GENDER DATA: Female. status: : No status: NO. PATIENT RELEVANT IMPLANT DATA REVIEWED: Not Applicable RADIOLOGY DEPARTMENT: SURGICAL XRAY: ANKLE: LEFT PERIPHERAL IV DATA: Not applicable SIGNED BY: Clint Rees RT April 07, 2020 6:16 PM [facility] HNO ID: [id number] Author: Fanny (Rt) Kelly Mark Service: Radiology Author Type: Wet End Supervisor Type: [facility] Filed: 04/07/2020 3:16 PM Note Text: Radiology Service Progress Note PATIENT NAME: Gabriela Ramon DATE OF SERVICE: April 07, 2020 TIME: 3:16 PM PATIENT IDENTITY VERIFICATION COMPLETED USING TWO (2) IDENTIFIERS: Name and Date of confirmed by patient verbally. FALL SCREENING: Has the patient had 2 falls in the last year or 1 fall with injury or currently using an Ambulatory Assistive Device (Walker, Cane, Wheelchair, Crutches, etc.)? Emergency Room Patient: Screened in ED PATIENT GENDER DATA: Female. status: : No status: NO. PATIENT RELEVANT IMPLANT DATA REVIEWED: Not Applicable RADIOLOGY DEPARTMENT: General X-ray: Exam(s) Completed: Lower Extremity X-Ray(s): Ankle, Left: PERIPHERAL IV DATA: Not applicable SIGNED BY: RT Chelo April 07, 2020 3:16 PM [facility] ANES POSTPROC EVALon 020 ANES POSTPROC EVAL HNO ID: [id number] Author: Ricardo Castano Service: ? Author Type: Physician Type: Anesthesia Postprocedure Evaluation Filed: 04/07/2020 8:41 PM Note Text: POST ANESTHESIA EVALUATION NOTE : 1940 Procedure Summary Date: 04/07/20 Room / Location: OR OR 06 / AK OR Anesthesia Start: 1711 Anesthesia Stop: 1840 Procedures: ORIF ANKLE TRIMALLEOLAR, WITH FIXATION POSTERIOR LIP (Left Ankle) INCISION AND DRAINAGE ANKLE (Left ) Diagnosis: Open left ankle fracture Surgeons: Rohan Redding Responsible Provider: Ricardo Castano Anesthesia Type: general ASA Status: 3 - Emergent Anesthesia Type: general Last vitals Vitals Value Taken Time BP 155/55 04/07/202029 Temp 36.2 ?C (97.2 ?F) 04/07/202014 HR SpO2 90 04/07/202040 Resp 36 04/07/202040 SpO2 99 % 04/07/202040 Vitals shown include unvalidated device data. Post Anesthesia Patient Status Patient Evaluation: bedside. Anticipated Disposition: inpatient floor planned admission. Neurological Status: aware and responsive. Pulmonary Status: breathing comfortably on supplemental oxygen Airway Control: returned to baseline unsupported. Cardiovascular Status: stable. Pain Management: clinically adequate - multimodal analgesia pain management approach Postoperative Hydration: acceptable. Intraoperative Events: no significant anesthesia events Post Operative Nausea/Vomiting Status: no significant post operative nausea or vomiting Anesthetic Observations: no significant anesthetic observations Recommendation: further care per PACU/ICU/floor team. SIGNATURE: Ricardo Castano DO PATIENT NAME: Gabriela Ramon DATE: April 07, 2020 TIME: 8:41 PM CSN: [id number] [facility] ANES PRE-OPon 04-07-2020 ANES PRE-OP HNO ID: [id number] Author: Jonathan Carlisle Service: ? Author Type: Physician Type: Anesthesia Preprocedure Evaluation Filed: 04/07/2020 5:13 PM Note Text: ANESTHESIOLOGY DAY OF SURGERY NOTE : 1940 Procedure(s) (LRB): ORIF ANKLE TRIMALLEOLAR, WITH FIXATION POSTERIOR LIP (Left) APPLICATION EXTERNAL FIXATOR ANKLE (Left) DEBRIDEMENT MUSCLE AND FASCIA FOOT EACH ADDITIONAL 20 SQ CM (Left) Surgeon(s): Rohan Redding Estimated body mass index is 32.92 kg/m? as calculated from the following: Height as of this encounter: 157.5 cm (5' 2). Weight as of this encounter: 81.6 kg (180 lb). Most recent hematocrit and potassium results: Hematocrit 42.4 07/25/2016 Potassium 4.5 07/25/2016 Relevant Problems CARDIO (+) Coronary atherosclerosis (+) Essential hypertension, benign I - PHYSICAL EVALUATION AIRWAY Patient intubated: No. Tracheostomy tube not present Mallampati: II. Neck ROM: full ROM without neurological symptoms. DENTAL Dental findings: teeth intact and poor dentition. II - ANESTHESIA PLAN ASA Score: 3; emergent. Anesthetic Plan: general NPO Status: adequate Monitoring plan: standard ASA. Postoperative analgesic plan: parenteral or oral opioids. Anesthetic Risks, Benefits, Alternatives, Personnel Discussed. Consent obtained from: patient. Patient / Surrogate agrees to blood products: Yes Potential Anesthesia issues that may suggest increased risk of complications or contraindication to planned procedure: none. Vitals Value Taken Time BP 136/63 04/07/201708 Pulse 98 04/07/201708 Resp 18 04/07/201708 Temp 36 ?C (96.8 ?F) 04/07/201708 SpO2 97 % 04/07/201708 Facility-Administered Medications as of 04/07/2020 Medication Dose Route Frequency - [COMPLETED] fentaNYL 50 mcg/mL 50 mcg injection (SUBLIMAZE) 50 mcg INTRAVENOUS ONCE - [COMPLETED] ondansetron (PF) 4 mg injection (ZOFRAN) 4 mg INTRAVENOUS ONCE - [COMPLETED] HYDROmorphone 1 mg injection (DILAUDID) 1 mg INTRAVENOUS ONCE - [COMPLETED] ceFAZolin iv piggyback 1 g in D5W (iso-osmotic) 50 mL (ANCEF) 1 g INTRAVENOUS ONCE Outpatient Medications as of 04/07/2020 Medication Sig - isosorbide mononitrate ER (IMDUR) 60 mg 24 hr tablet Take 1 tablet by mouth once daily. - simvastatin (ZOCOR) 20 mg tablet Take 1 tablet by mouth daily at bedtime. - meloxicam (MOBIC) 15 mg tablet Take 1 tablet by mouth once daily. - hydroCHLOROthiazide (HYDRODIURIL, ESIDRIX) 25 mg tablet Take 1 tablet by mouth once daily. - Benazepril HCl 40 mg tablet Take 1 tablet by mouth once daily. - amLODIPine (NORVASC) 10 mg tablet Take 1 tablet by mouth once daily. - alendronate (FOSAMAX) 70 mg tablet Take 1 tablet by mouth once each week. - atenolol (TENORMIN) 25 mg tablet Take 1 tablet by mouth twice daily. - nystatin (MYCOSTATIN) cream Apply 1 application to affected area three times daily. Apply topically to affected area 2-3 times/day up to 14 days - baclofen (LIORESAL) 10 mg tablet Take 1 tablet by mouth three times daily as needed (muscle spasms). - HYDROcodone-acetaminophen 5-325 mg per tablet Take 1 tablet by mouth every 6 hours as needed for Pain. - aspirin, enteric coated (ECOTRIN LOW STRENGTH) 81 mg ORAL TbEC Take one(1) tablet daily. I have interviewed and examined the patient. I have reviewed the medical record and/or the pre-anesthesia evaluation, pertinent labs, and test results. This contains updated information obtained within 48 hours of Surgery/Procedure. SIGNATURE: Jonathan Carlisle MD PATIENT NAME: Gabriela Ramon DATE: April 07, 2020 TIME: 5:13 PM CSN: [id number] [facility] BRIEF OP NOTon 04-07-2020 BRIEF OP NOT HNO ID: [id number] Author: Joe Whitaker Service: Orthopaedic Surgery Author Type: Resident Type: Brief Op Note Filed: 04/07/2020 7:08 PM Note Text: Attestation signed by Rohan Redding at 04/08/2020 8:53 AM Agree with resident assessment and plan. BRIEF OPERATIVE / PROCEDURE NOTE IRRIGATION AND DEBRIDEMENT LEFT OPEN ANKLE FRACTURE/DISLOCATION ORIF LEFT OPEN ANKLE FRACTURE/DISLOCATION LOG ID: [id number] Surgery/Procedure Date: 04/07/2020 Incision/Procedure Start Time: 5:35 PM Incision Close/Procedure End Time: 6:22 PM Surgeon(s)/Proceduralist(s) and Yard Truck Driver(s): Surgeon(s) and Role: * Rohan Redding - Primary * Joe Whitaker - Resident - Assisting * Puja (Res) Kathy - Resident - Assisting No Additional Staff Procedure(s): Procedure(s) (LRB): ORIF ANKLE TRIMALLEOLAR, WITH FIXATION POSTERIOR LIP (Left) INCISION AND DRAINAGE ANKLE (Left) Anesthesia: Choice - Anesthesia Consult Findings: Grade 2 Open Trimalleolar-Equivalent Ankle Fracture/Dislocation Estimated Blood Loss: 70cc Specimens: None Complications: None Implant: Implant Name Type Inv. Item Serial No. Costume Seamstress Lot No. LRB No. Used Action BIT 2.5MM GOLD STAINLESS STEEL 110MM DRILL QUICK COUPLING SMALL FRAGMENT - [id number] Bit BIT 2.5MM GOLD STAINLESS STEEL 110MM DRILL QUICK COUPLING SMALL FRAGMENT [employer] 1 SCREW LCP 4MM FULL THREAD STAINLESS STEEL 12MM BONE FULLY THREADED SMALL - [id number] Screw SCREW LCP 4MM FULL THREAD STAINLESS STEEL 12MM BONE FULLY THREADED SMALL [employer] Left 1 Wasted SCREW LC-DCP DCP 3.5MM 6MM FULL THREAD STAINLESS STEEL 50MM BONE SELF - [id number] Screw SCREW LC-DCP DCP 3.5MM 6MM FULL THREAD STAINLESS STEEL 50MM BONE SELF [employer] Left 1 Implanted SCREW LCP 3.5MM FULL THREAD STAINLESS STEEL 12MM BONE STARDRIVE RECESS SELF - [id number] Screw SCREW LCP 3.5MM FULL THREAD STAINLESS STEEL 12MM BONE STARDRIVE RECESS SELF [employer] Left 2 Implanted PLATE LCP STAINLESS STEEL [id number] BONE 7 HOLE 1/3 TUBULAR COLLAR SMALL - [id number] Plate PLATE LCP STAINLESS STEEL [id number] BONE 7 HOLE 1/3 TUBULAR COLLAR SMALL [employer] Left 1 Implanted SCREW LC-DCP DCP 3.5MM 6MM FULL THREAD STAINLESS STEEL 14MM BONE SELF TAP - [id number] Screw SCREW LC-DCP DCP 3.5MM 6MM FULL THREAD STAINLESS STEEL 14MM BONE SELF TAP [employer] Left 2 Implanted SCREW LCP DCP 2.7MM STAINLESS STEEL 22MM BONE SELF TAPPING MINI/SMALL - [id number] Screw SCREW LCP DCP 2.7MM STAINLESS STEEL 22MM BONE SELF TAPPING MINI/SMALL [employer] Left 1 Implanted Pre-Op/Pre-Procedure Diagnosis:Grade 2 Open Trimalleolar-Equivalent Ankle Fracture/Dislocation Post-Op/Post-Procedure Diagnosis: Grade 2 Open Trimalleolar-Equivalent Ankle Fracture/Dislocation A/P: 79 YO F POD0 s/p IANDD and ORIF Left Open Ankle Fracture/Dislocation -Pain control -NWB LLE -PT/OT -Walking boot LLE -Dressinx4, ABD, michelle -Lester: remove POD1 -DVT ppx: Aspirin 81mg BID x 21 days -Post-op Ancef x 2 doses -F/U XR L Ankle -Discharge planning: pending PT recs, 1-2 days SIGNATURE: Joe Whitaker MD PATIENT NAME: Gabriela Ramon DATE: April 07, 2020 TIME: 7:02 PM PAGER/CONTACT #: [phone] [facility] CONFIRM BLOOD TYPEon 020 ABO A [facility] Comment on above: Order Comment: Speci men Type: BLOOD SPECIMEN Performed By: #### C ONABO #### [facility] CLIA [id number] Rh Nom (Bld) Negative [facility] Comment on above: Order Comment: Speci men Type: BLOOD SPECIMEN Performed By: #### C ONABO #### [facility] CLIA [id number] ED NOTEon 04-07-2020 ED NOTE HNO ID: [id number] Author: Meena VillegasRn) Aparna RN Service: Emergency Medicine Author Type: Registered Nurse Type: ED Notes Filed: 04/07/2020 4:48 PM Note Text: Pt has chart from [facility] per Dr Chavez ortho resident [facility] ED NOTE HNO ID: [id number] Author: Meena Dupree) Aparna, RN Service: Emergency Medicine Author Type: Registered Nurse Type: ED Notes Filed: 04/07/2020 4:41 PM Note Text: Report gave for Jojo WINSTON in presurg [facility] ED NOTE HNO ID: [id number] Author: Meena Dupree) Aparna, RN Service: Emergency Medicine Author Type: Registered Nurse Type: ED Notes Filed: 04/07/2020 4:07 PM Note Text: Lunch coverage from [id number] [facility] ED NOTE HNO ID: [id number] Author: Isabel VillegasRn) Rivera, RN Service: ? Author Type: Registered Nurse Type: ED Notes Filed: 04/07/2020 2:28 PM Note Text: Bed: 17-ED Expected date: 04/07/20 Expected time: Means of arrival: Comments: physicians Normal [facility] ED PROV NOTEon 04-07-2020 ED PROV NOTE HNO ID: [id number] Author: Airam Lund MD Service: Emergency Medicine Author Type: Physician Type: ED Provider Notes Filed: 04/07/2020 4:23 PM Note Text: ED Provider Note Patient Name: Gabriela Ramon SERVICE DATE: 04/07/20 History HPI The patient states that she slipped on wet grass while going down her driveway this morning at 830. She sustained an injury to her left ankle. She went to the [place] emergency department where they diagnosed a fracture dislocation. Although they were able to reduce the dislocation, the orthopedist there did not feel comfortable with the management of it and referred the patient here for orthopedic consultation. PAST MEDICAL HISTORY Diagnosis Date - Coronary atherosclerosis of unspecified type of vessel, [place] or graft Coronary artery disease - Diverticulosis of colon (without mention of hemorrhage) - Mixed hyperlipidemia Hyperlipidemia - Osteoporosis, unspecified Osteoporosis - PMH - PAST MEDICAL HISTORY OF 1944 Osteomyelitis - Unspecified essential hypertension Essential hypertension - Urinary calculus, unspecified Renal stones PAST SURGICAL HISTORY Procedure Laterality Date - COLONOSCOP W/ OR W/O [facility] SPEC 12/23/2008 Colonoscopy - LAP REPAIR INTIAL INGUINAL HERNIA 01-23-12 - PAST SURGICAL HISTORY OF 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 - PERC TRANSL COR ANGIO 2003 Percutaneous Transluminal Coronary Angio Status - REMV CATARACT EXTRACAP,INSERT LENS Bilateral 2014 Cataract Extraction with PC IOL - REPAIR UMBILICAL ARCHANA,5+Y/O,REDUC 01-23-12 - [facility] N/CARPAL TUNNEL SURG 2006 Carpal tunnel decomp left - [facility] N/CARPAL TUNNEL SURG 2007 Carpal tunnel decomp right - SIGMOIDOSCOPY FLEX DIAG Sigmoidoscopy, flexible FAMILY HISTORY Problem Relation Age of Onset - other (skin ca [Other]) Brother - Cancer Father Lung Social History Tobacco Use - Smoking status: Former Smoker Packs/day: 1.00 Years: 3.00 Pack years: 3.00 Types: Cigarettes Quit date: 05/15/1991 Years since quittin.9 - Smokeless tobacco: Never Used Substance and Sexual Activity - Alcohol use: No - Drug use: Not on file - Sexual activity: Yes Partners: Male Comment: Menopause ALLERGIES No Known Allergies The patient complains of left ankle pain. She denies any other sites of injury or discomfort. She denies any paresthesias or paralysis. There is been no chest pain, abdominal pain, neck pain, or headache. She denies any discomfort or injury to the other extremities or any other part of her left lower extremity. The remaining appropriate systems were reviewed and were negative. Physical Exam BP 157/75 Pulse 81 Temp (Src) 97.5 (Oral) Resp 17 Ht 5' 2 (1.58m) Wt 180 lb (81.6kg) SpO2 98% BMI 32.91 kg/(m2). O2 Therapy: Nasal Cannula, Liters: 2 Physical Exam The patient skin is pink, warm, dry. Pupils are equal reactive to light accommodation. The oropharynx is clear. The chest is clear, and the abdomen is soft and nontender. There is no palpable tenderness along the spine or the scalp. There is no other sites of tenderness in the extremities with the exception of the left ankle which is splinted. She has brisk capillary refill in the toes with neurovascular status intact. Diagnostic Testing ED Labs Ordered and Reviewed - No data to display Procedures ED Course / Clinical Impression The patient was provided with fentanyl and Zofran for her discomfort. As the x-rays were not available from [facility], I have ordered repeat x-rays of her left ankle. I have also spoke with the orthopedic service as they will be needed for consultation. The patient currently is in stable condition. Upon removal of the splint, there was found to be a open wound to the anterior surface of the ankle. Her x-rays demonstrated a distal fibular as well as a posterior malleolar fracture. She was given Ancef 1 g IV piggyback and a tetanus immunization. The orthopedics resident saw her and she will be transferred to the operating room under the service of Dr. Redding. She is in stable condition. Clinical Impressions as of Apr 07 1620 Type I or II open fracture of right ankle, initial encounter MDM / Disposition / Plan The patient will be transferred to the operating room in stable condition for definitive surgical and orthopedic care. MDM SIGNATURE: MD Airam Giron MD 04/07/20 1623 Normal [facility] HISTORY PHYSICALon 0 HISTORY PHYSICAL HNO ID: [id number] Author: Rohan Redding Service: Orthopaedic Surgery Author Type: Physician Type: HANDP Filed: 04/07/2020 5:03 PM Note Text: ORTHOPAEDIC SURGERY HANDP Pt: GABRIELA RAMON Date of Admission: 04/07/2020 Chief Complaint: Left open ankle fracture HPI: 79 year old female presented to [facility] as a transfer from [facility]. She states that this morning she was walker her dogs and slipped on the wet grass rolling her ankle under her. Does not recall if there was any blood, states she was wearing a sock. She was taken to [facility] where her ankle was reduced and she was put in a splint. Per notes from [facility], the fracture was open and there was a posterior ankle dislocation that was reduced. She denies any head injury or LOC. No other orthopedic complaints at this time. PAST MEDICAL HISTORY Diagnosis Date - Coronary atherosclerosis of unspecified type of vessel, [place] or graft Coronary artery disease - Diverticulosis of colon (without mention of hemorrhage) - Mixed hyperlipidemia Hyperlipidemia - Osteoporosis, unspecified Osteoporosis - PMH - PAST MEDICAL HISTORY OF 1944 Osteomyelitis - Unspecified essential hypertension Essential hypertension - Urinary calculus, unspecified Renal stones PAST SURGICAL HISTORY Procedure Laterality Date - COLONOSCOP W/ OR W/O [facility] SPEC 12/23/2008 Colonoscopy - LAP REPAIR INTIAL INGUINAL HERNIA 01-23-12 - PAST SURGICAL HISTORY OF 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 Current Facility-Administered Medications Medication Dose Route Frequency - HYDROmorphone 1 mg injection (DILAUDID) 1 mg INTRAVENOUS ONCE Current Outpatient Medications Medication Sig - isosorbide mononitrate ER (IMDUR) 60 mg 24 hr tablet Take 1 tablet by mouth once daily. - simvastatin (ZOCOR) 20 mg tablet Take 1 tablet by mouth daily at bedtime. - meloxicam (MOBIC) 15 mg tablet Take 1 tablet by mouth once daily. - hydroCHLOROthiazide (HYDRODIURIL, ESIDRIX) 25 mg tablet Take 1 tablet by mouth once daily. - Benazepril HCl 40 mg tablet Take 1 tablet by mouth once daily. - amLODIPine (NORVASC) 10 mg tablet Take 1 tablet by mouth once daily. - alendronate (FOSAMAX) 70 mg tablet Take 1 tablet by mouth once each week. - atenolol (TENORMIN) 25 mg tablet Take 1 tablet by mouth twice daily. - nystatin (MYCOSTATIN) cream Apply 1 application to affected area three times daily. Apply topically to affected area 2-3 times/day up to 14 days - baclofen (LIORESAL) 10 mg tablet Take 1 tablet by mouth three times daily as needed (muscle spasms). - HYDROcodone-acetaminophen 5-325 mg per tablet Take 1 tablet by mouth every 6 hours as needed for Pain. - aspirin, enteric coated (ECOTRIN LOW STRENGTH) 81 mg ORAL TbEC Take one(1) tablet daily. FAMILY HISTORY Problem Relation Age of Onset - other (skin ca [Other]) Brother - Cancer Father Lung Negative for family history of bleeding and clotting disorders. Social History Tobacco Use - Smoking status: Former Smoker Packs/day: 1.00 Years: 3.00 Pack years: 3.00 Types: Cigarettes Quit date: 05/15/1991 Years since quittin.9 - Smokeless tobacco: Never Used Substance Use Topics - Alcohol use: No - Drug use: Not on file ROS: 10 pt ROS neg except in HPI O: Vitals: BP 157/75 Pulse 81 Temp 36.4 ?C (97.5 ?F) (Oral) Resp 17 Ht 157.5 cm (5' 2) Wt 81.6 kg (180 lb) SpO2 98% BMI 32.92 kg/m? Physical exam: General: AANDO x 3; NAD. Cooperative throughout entire interview Head: Atraumatic, Normocephalic Neck: Supple Chest: Unlabored breathing Cardiovascular: palpable pulses Abdomen: Soft, non-tender Pelvis: Deferred Neuro: Grossly intact Left Lower Extremity: There is a 4 cm laceration to the medial ankle with dark red blood oozing from the wound. There is no bone protruding at this time from the laceration. There is minimal swelling about the ankle with no obvious signs of ecchymosis. Patient is tender to palpation over the medial and lateral malleoli. Compartments of the thigh and leg are soft and compressible. The patient tolerates passive stretch of the digits. +DF/PF/EHL. SILT briscoe/sa/sp/dp/t. BCR of the digits of the foot. Secondary Survey: No TTP of any other bony prominences or joints of the upper and lower extremities bilaterally except that described above. Labs: BMP: Sodium 140 07/25/2016 Potassium 4.5 07/25/2016 Chloride 102 07/25/2016 CO2 24 07/25/2016 BUN 30 07/25/2016 Cr (more content not included)... Normal [facility] HOSPon 04-07-2020 HOSP Patient:Gabriela Ramon MRN: Height:5' 2(1.575 m) Weight:180 lb (81.647 kg) Outpatient Medications as of 04/07/20: isosorbide mononitrate ER (IMDUR) 60 mg 24 hr tablet simvastatin (ZOCOR) 20 mg tablet meloxicam (MOBIC) 15 mg tablet hydroCHLOROthiazide (HYDRODIURIL, ESIDRIX) 25 mg tablet Benazepril HCl 40 mg tablet amLODIPine (NORVASC) 10 mg tablet alendronate (FOSAMAX) 70 mg tablet atenolol (TENORMIN) 25 mg tablet nystatin (MYCOSTATIN) cream baclofen (LIORESAL) 10 mg tablet HYDROcodone-acetaminophen 5-325 mg per tablet aspirin, enteric coated (ECOTRIN LOW STRENGTH) 81 mg ORAL [facility] Admission/Clinic Administered Medications as of 04/07/20: Patient has no admission medications. Problem List: Coronary atherosclerosis [I25.10] Other and unspecified hyperlipidemia [E78.5] Essential hypertension, benign [I10] Osteoporosis [M81.0] Ingrowing nail [L60.0] Cellulitis and abscess of toe, unspecified [L03.039, L02.619] Impaired fasting blood sugar [R73.01] Backache [M54.9] Pain in thoracic spine [M54.6] Abdominal pain, unspecified site [R10.9] Umbilical hernia without mention of obstruction or gangrene [K42.9] Inguinal hernia without mention of obstruction or gangrene, unilateral or unspecified, (not specified as recurrent) [K40.90] Allergies: No Known Allergies Date Verified:04/07/20 Lab Values No results within the last 30 days for the following basenames: K,HCT No progress notes entered within the past 30 days Normal [facility] OPERATIVE NOon 04-07-2020 OPERATIVE NO HNO ID: [id number] Author: Rohan Redding Service: Orthopaedic Surgery Author Type: Physician Type: Operative Report Filed: 04/08/2020 6:35 AM Note Text: [facility] - Operative Report GABRIELA RAMON : 1940 AGE: 79. SEX: F PATIENT TYPE: I [place] [facility] [place] [facility] [place] [facility] LOCATION: [facility] ATTENDING PHYSICIAN: ROHAN REDDING CSN NUMBER: [id number] DATE OF SURGERY/PROCEDURE: 04/07/2020 INCISION/PROCEDURE START TIME: 5:35 PM INCISION CLOSE/PROCEDURE END TIME: 6:22 PM PREOPERATIVE DIAGNOSIS: Open left trimalleolar ankle fracture dislocation. POSTOPERATIVE DIAGNOSIS: Open left trimalleolar ankle fracture dislocation. SURGEON: Rohan Redding MD ART TEACHER: Dr. Whitaker. Dr. Chavez SURGERY/PROCEDURE: 1. Irrigation and debridement of open left trimalleolar ankle fracture. 2. Irrigation and debridement, arthrotomy, left ankle joint. 3. Open reduction and fixation, left trimalleolar ankle fracture without posterior fixation. 4. Open reduction and internal fixation, left syndesmosis. 5. 7 cm intermediate wound closure, left ankle. ANESTHESIA: General anesthesia. COMPLICATIONS: No complications. ESTIMATED BLOOD LOSS: 70 mL. BLOOD PRODUCTS: No blood products given. PACKS/DRAINS: No packs or drains used. FLUIDS: 700 mL of crystalloid. COMPLICATIONS: No complications. ANTIBIOTICS: Patient received Ancef preoperatively as well as intraoperatively. DISPOSITION: Patient returned to the PACU in stable condition. BRIEF HISTORY: Ms. Ramon was at home this morning walking her dog and slipped on wet grass, injuring her left ankle. Initially seen at an outside institution, was found to have an open ankle fracture dislocation. Subsequently transfer to our institution for definitive care. She did receive antibiotics at the outside institution per report. She also received antibiotics in the emergency department at our institution as well as intraoperatively. It was recommended that she undergo irrigation and debridement and fixation of her left ankle fracture. X-ray showed medial joint space widening with lateral dislocation of her left ankle. Also, has a small posterior malleolar fragment with a distal fibular fracture. This was discussed with the patient. I discussed the risks, benefits, complications, alternatives, and answered her questions and she wished to proceed. DESCRIPTION OF PROCEDURE: Informed consent was obtained. The patient was appropriately identified in the presurgical area and brought back to the operating room. Anesthesia was administered followed by intubation. At all times, head, neck, and airway controlled by Anesthesia staff. She was then transferred to the operating room table in the supine position with a bump under her left hip. Left lower extremity was then prescrubbed with Hibiclens and alcohol and then prepped and draped in sterile orthopedic fashion. Time-out was performed per [facility] protocol. Patient received Ancef IV preoperatively as well as intraoperatively. We started with irrigation and debridement. We were able to readily re-dislocate the ankle through the 7 cm transverse laceration medially. We debrided any devitalized tissues using curettes and rongeurs down to and including bone. We also irrigated and debrided the joint of the left ankle. This was the tibial-talar joint. We irrigated a total of 3 L of sterile saline using cystoscopy tubing. Once this was complete, we then turned our attention to the lateral side of the ankle. An incision was made with scalpel. Electrocautery was used for hemostasis. Dissection carried down to the distal fibula and soft tissues elevated off the distal fibula. We readily identified our fracture site and cleansed of debris. It was irrigated. The clamp was then used to obtain our reduction and confirmed with C-arm imaging. An anterior to posterior 2.7 mm screw was placed for lag fixation. We then placed a Synthes one-third tubular plate on the lateral aspect of the distal fibula for neutralization. We initially placed 2 nonlocking screws proximally and 1 nonlocking screw distally. This was confirmed with C-arm imaging. I then placed a locking screw distally and exchanged the nonlocking screw for a locking screw distally. This gave us good fixation of the ankle. We then reduced the syndesmosis and placed 1 lateral to medial Syndesmotic screw. No medial or posterior fixation was required due to the small posterior fragment as well as the soft tissue injury medially. Final images were obtained, which showed satisfactory hardware placement and reduction. Closure then ensued with thorough irrigation once again. Laterally, we closed the deep tissues with 2-0 Vicryl. 2-0 Vicryl was used in dermis and 3-0 nylon for the skin. Medially a 7 cm intermediate wound closure was performed with 3-0 nylon suture. A sterile dressing was placed. Patient awakened from (more content not included)... Normal [facility] SARS-CoV-2 RNA Resp Ql EVY+p robeon 04-07-2020 SARS-CoV-2 (COVID-19) RNA EVY+probe Ql (Resp) COVID 19 RESULT: SARS-CoV-2 (Agent of COVID-19) Not Detected by PCR. This test has been authorized by FDA under an Emergency Use Authorization (EUA) [facility] Comment on above: Performed By: #### [id number] ####[facility] [id number] [place] [address] TYPE AND SCREENon 04-07-2020 ABO A Normal [facility] Comment on above: Order Comment: Speci men Type: BLOOD SPECIMEN Performed By: #### T SCR #### [facility] CLIA [id number] HISTORICAL AB SCR STATUS Negative [facility] Comment on above: Order Comment: Speci men Type: BLOOD SPECIMEN Performed By: #### T SCR #### [facility] CLIA [id number] Rh Nom (Bld) Negative [facility] Comment on above: Order Comment: Speci men Type: BLOOD SPECIMEN Performed By: #### T SCR #### [facility] CLIA [id number] TYPE AND SCREEN EXPIRATION 04/10/2020 23:59 [facility] Comment on above: Order Comment: Speci men Type: BLOOD SPECIMEN Performed By: #### T SCR #### [facility] CLIA [id number] XR ANKLE 2V AP/LAT LTon 03-16 XR ANKLE 2V AP/LAT LT Final Report DATE OF EXAM: Apr 07 2020 6:21PM EDGAR [id number] - XR ANKLE 2V AP/LAT LT / PROCEDURE REASON: ORIF Physician Interpretation EXAM TITLE: FLUOROSCOPY CLINICAL INDICATION/HISTORY: ORIF COMPARISON: Ankle radiographs 04/07/2020 TECHNIQUE: Fluoroscopic guidance was provided for an intraoperative exam. FINDINGS: 16 seconds of fluoroscopy time was used. 2 films were submitted. Images demonstrate ORIF of the fibula and ankle arthrodesis. IMPRESSION: Documentation of fluoroscopy for intraoperative procedure. Please see the clinician's notes for further details of the procedure. Esthetics Instructor: [facility] Transcribe Date/Time: Apr 08 2020 7:32A Dictated by : SHELIA WARD MD This examination was interpreted and the report reviewed and electronically signed by: SHELIA WARD MD on Apr 08 2020 7:32AM EST Normal [employer] [facility] XR ANKLE 3V AP/LAT/OBL LTon 04-07-2020 XR ANKLE 3V AP/LAT/OBL LT Final Report DATE OF EXAM: Apr 07 2020 7:24PM [id number] [id number] - XR ANKLE 3V AP/LAT/OBL LT / PROCEDURE REASON: Joint pain, ankle Physician Interpretation EXAMINATION: XR ANKLE 3V AP/LAT/OBL LT HISTORY: POST OP L ANKLE Joint pain, ankle. COMPARISON: Left ankle radiographs 04/07/2020 TECHNIQUE: XR ANKLE 3V AP/LAT/OBL LT Laterality: LEFT Number of different views (projections): 3 M: XB_1 FINDINGS: There are postoperative changes of plate and screw fixation of the distal fibula. There is also a screw transfixing the tibiofibular articulation. Ankle mortise is maintained. The fibular fracture is improved in alignment IMPRESSION: Postsurgical changes on fibular ORIF and ankle arthrodesis. Esthetics Instructor: [facility] Transcribe Date/Time: Apr 08 2020 7:27A Dictated by : SHELIA WARD MD This examination was interpreted and the report reviewed and electronically signed by: SHELIA WARD MD on Apr 08 2020 7:30AM EST Normal [facility] XR ANKLE 3V AP/LAT/OBL LT Final Report DATE OF EXAM: Apr 07 2020 3:15PM [id number] [id number] - XR ANKLE 3V AP/LAT/OBL LT / PROCEDURE REASON: Ankle trauma, continued pain, initial exam Physician Interpretation TECHNIQUE: XR ANKLE 3V AP/LAT/OBL LT EXAM DATE: 04/07/2020 3:15 PM COMPARISON STUDIES: None CLINICAL HISTORY: Ankle trauma, continued pain, initial exam RESULT: Overlying splint/cast obscures bony detail. Lateral subluxation of the talus relative to the distal tibia. Acute distal fibular fracture with slight lateral and mild posterior displacement of the distal fracture fragment. Small posterior malleolar fracture suspected. 3 mm mineralized fragment by the medial ankle mortise seen on the oblique film, possible tiny fracture fragment. IMPRESSION: Tibiotalar subluxation Acute distal fibular and suspect posterior malleolar fractures. Tiny mineralized focus by the medial ankle mortise may reflect small fracture fragment Esthetics Instructor: [facility] Transcribe Date/Time: Apr 07 2020 3:23P Dictated by : ASAD MORALES MD This examination was interpreted and the report reviewed and electronically signed by: ASAD MORALES MD on Apr 07 2020 3:25PM EST Normal [facility] Culture, urine Bacteria identified Cx Nom (U) Presumptive E. 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 [facility] Work Phone: Bacteria identified Cx Nom (U) Positive [facility] Work Phone: Laboratory - Microbiology an d Antimicrobial susceptibility Bacteria identified Cx Nom (Bld) No growth in 5 days. [facility] Work Phone: Lower GI hemoglobin IA Ql (S tl) Stool Occult Blood (MILLI) Positive [facility] Work Phone: No Panel Information Respiratory Panel (PCR) [facility] Work Phone: SARS-CoV-2 & FLU Antigen (Rapid) [facility] Work Phone: Vital Signs Date Time Vital Sign Value Performing Clinician Facility 11-18-2024 14:31-0400 Body height 153.8 cm Viri Campos APRN.CNP Work Phone: [facility] 11-18-2024 14:31-0400 Body mass index (BMI) [Ratio] 27.04 kg/m2 Viri Tenzin TRANSPORT OPERATIONS INSPECTOR.JAVASCRIPT SOFTWARE ENGINEER Work Phone: [facility] 11-18-2024 14:31-0400 Body temperature 98.8 [degF] Viri Tenzin TRANSPORT OPERATIONS INSPECTOR.JAVASCRIPT SOFTWARE ENGINEER Work Phone: [facility] 11-18-2024 14:31-0400 Body weight 63.96 kg Viri Tenzin TRANSPORT OPERATIONS INSPECTOR.JAVASCRIPT SOFTWARE ENGINEER Work Phone: [facility] 11-18-2024 14:31-0400 Diastolic blood pressure 64 mm[Hg] Viri Tenzin TRANSPORT OPERATIONS INSPECTOR.JAVASCRIPT SOFTWARE ENGINEER Work Phone: [facility] 11-18-2024 14:31-0400 Heart rate 84 /min Viri Tenzin TRANSPORT OPERATIONS INSPECTOR.JAVASCRIPT SOFTWARE ENGINEER Work Phone: [facility] 11-18-2024 14:31-0400 Respiratory rate 14 /min Viri Tenzin TRANSPORT OPERATIONS INSPECTOR.JAVASCRIPT SOFTWARE ENGINEER Work Phone: [facility] 11-18-2024 14:31-0400 SaO2% (BldA) [Mass fraction] 96 % Viri Tenzin TRANSPORT OPERATIONS INSPECTOR.JAVASCRIPT SOFTWARE ENGINEER Work Phone: [facility] 11-18-2024 14:31-0400 Systolic blood pressure 110 mm[Hg] Viri Tenzin TRANSPORT OPERATIONS INSPECTOR.JAVASCRIPT SOFTWARE ENGINEER Work Phone: [facility] 10-22-2024 09:51-0400 Body mass index (BMI) [Ratio] 23.9 kg/m2 Noemí Gonzales DIRECTOR BANKING-C Work Phone: [facility] 10-22-2024 09:51-0400 Body weight 58.96 kg Noemí Gonzales DIRECTOR BANKING-C Work Phone: [facility] 10-22-2024 09:51-0400 Diastolic blood pressure 74 mm[Hg] Noemí Gonzales DIRECTOR BANKING-C Work Phone: [facility] 10-22-2024 09:51-0400 Heart rate 65 /min Noemí Gonzales DIRECTOR BANKING-C Work Phone: [facility] 10-22-2024 09:51-0400 Respiratory rate 18 /min Noemí Christian DIRECTOR BANKING-C Work Phone: [facility] 10-22-2024 09:51-0400 SaO2% (BldA) [Mass fraction] 98 % Noemí Christian DIRECTOR BANKING-C Work Phone: [facility] 10-22-2024 09:51-0400 Systolic blood pressure 124 mm[Hg] Noemí Christian DIRECTOR BANKING-C Work Phone: [facility] 08-08-2024 20:07-0400 Body temperature 97.9 [degF] Noemí Chritsian DIRECTOR BANKING-C Work Phone: [facility] 08-08-2024 20:07-0400 Diastolic blood pressure 81 mm[Hg] Noemí Christian DIRECTOR BANKING-C Work Phone: [facility] 08-08-2024 20:07-0400 Heart rate 78 /min Noemí Christian DIRECTOR BANKING-C Work Phone: [facility] 08-08-2024 20:07-0400 Respiratory rate 18 /min Noemí Christian DIRECTOR BANKING-C Work Phone: [facility] 08-08-2024 20:07-0400 SaO2% (BldA) [Mass fraction] 98 % Noemí Christian DIRECTOR BANKING-C Work Phone: [facility] 08-08-2024 20:07-0400 Systolic blood pressure 155 mm[Hg] Noemí Christian DIRECTOR BANKING-C Work Phone: [facility] 08-08-2024 15:49-0400 Body height 157 cm Noemí Christian DIRECTOR BANKING-C Work Phone: [facility] 08-08-2024 15:49-0400 Body mass index (BMI) [Ratio] 26.4 kg/m2 Noemí Christian DIRECTOR BANKING-C Work Phone: [facility] 08-08-2024 15:49-0400 Body weight 65.09 kg Noemí Christian DIRECTOR BANKING-C Work Phone: [facility] 08-01-2024 11:11-0400 Body mass index (BMI) [Ratio] 26.81 kg/m2 Viri Tenzin TRANSPORT OPERATIONS INSPECTOR.JAVASCRIPT SOFTWARE ENGINEER Work Phone: [facility] 08-01-2024 11:11-0400 Body temperature 97.9 [degF] Viri Tenzin TRANSPORT OPERATIONS INSPECTOR.JAVASCRIPT SOFTWARE ENGINEER Work Phone: [facility] 08-01-2024 11:11-0400 Body weight 66.5 kg Viri Tenzin TRANSPORT OPERATIONS INSPECTOR.JAVASCRIPT SOFTWARE ENGINEER Work Phone: [facility] 08-01-2024 11:11-0400 Diastolic blood pressure 60 mm[Hg] Viri Tenzin TRANSPORT OPERATIONS INSPECTOR.JAVASCRIPT SOFTWARE ENGINEER Work Phone: [facility] 08-01-2024 11:11-0400 Heart rate 85 /min Viri Tenzin TRANSPORT OPERATIONS INSPECTOR.JAVASCRIPT SOFTWARE ENGINEER Work Phone: [facility] 08-01-2024 11:11-0400 Respiratory rate 17 /min Viri Tenzin TRANSPORT OPERATIONS INSPECTOR.JAVASCRIPT SOFTWARE ENGINEER Work Phone: [facility] 08-01-2024 11:11-0400 SaO2% (BldA) [Mass fraction] 97 % Viri Tenzin TRANSPORT OPERATIONS INSPECTOR.JAVASCRIPT SOFTWARE ENGINEER Work Phone: [facility] 08-01-2024 11:11-0400 Systolic blood pressure 112 mm[Hg] Viri Tenzin TRANSPORT OPERATIONS INSPECTOR.JAVASCRIPT SOFTWARE ENGINEER Work Phone: [facility] 06-10-2024 11:50-0500 Diastolic blood pressure 65 mm[Hg] MINA Hester MD Work Phone: [facility] 06-10-2024 11:50-0500 Heart rate 82 /min MINA Hester MD Work Phone: [facility] 06-10-2024 11:50-0500 Respiratory rate 15 /min MINA Hester MD Work Phone: [facility] 06-10-2024 11:50-0500 SaO2% (BldA) [Mass fraction] 95 % MINA Hester MD Work Phone: [facility] 06-10-2024 11:50-0500 Systolic blood pressure 131 mm[Hg] MINA Hester MD Work Phone: [facility] 06-10-2024 09:45-0500 Body temperature 97.2 [degF] MINA Hester MD Work Phone: [facility] 06-10-2024 07:30-0500 Body height 157.5 cm MINA Hester MD Work Phone: [facility] 06-10-2024 07:30-0500 Body mass index (BMI) [Ratio] 27.07 kg/m2 MINA Hester MD Work Phone: [facility] 06-10-2024 07:30-0500 Body weight 67.13 kg MINA Hester MD Work Phone: [facility] 11-21-2023 13:38-0400 Diastolic blood pressure 63 mm[Hg] Jerri Lemon MD Work Phone: [facility] 11-21-2023 13:38-0400 Heart rate 85 /min eJrri Lemon MD Work Phone: [facility] 11-21-2023 13:38-0400 Respiratory rate 14 /min Jerri eLmon MD Work Phone: [facility] 11-21-2023 13:38-0400 SaO2% (BldA) [Mass fraction] 98 % Jerri Lemon MD Work Phone: [facility] 11-21-2023 13:38-0400 Systolic blood pressure 132 mm[Hg] Jerri Lemon MD Work Phone: [facility] 11-21-2023 11:12-0400 Body mass index (BMI) [Ratio] 28.1 kg/m2 Jerri Lemon MD Work Phone: [facility] 11-21-2023 11:12-0400 Body temperature 97.59 [degF] Jerri Lemon MD Work Phone: [facility] 11-21-2023 11:12-0400 Body weight 69.7 kg Jerri Lemon MD Work Phone: [facility] 11-03-2023 11:29-0400 Body height 157.5 cm Jerri Lemon MD Work Phone: [facility] 11-03-2023 11:29-0400 Body mass index (BMI) [Ratio] 28.09 kg/m2 Jerri Lemon MD Work Phone: [facility] 11-03-2023 11:29-040 Body temperature 96.8 [degF] Jerri Lemon MD Work Phone: [facility] [facility] 11-03-2023 11:29-0400 Body weight 69.67 kg Jerri Lemon MD Work Phone: [facility] 11-03-2023 11:29-0400 Diastolic blood pressure 78 mm[Hg] Jerri Lemon MD Work Phone: [facility] 11-03-2023 11:29-0400 Heart rate 79 /min Jerri Lemon MD Work Phone: [facility] 11-03-2023 11:29-0400 SaO2% (BldA) [Mass fraction] 99 % Jerri Lemon MD Work Phone: [facility] 11-03-2023 11:29-0400 Systolic blood pressure 128 mm[Hg] Jerri Lemon MD Work Phone: [facility] 08-31-2023 10:00-0400 Body height 157.[address] Pavan Raymond Work Phone: [facility] 08-31-2023 09:54-0400 Body mass index (BMI) [Ratio] 29 kg/m2 Dr. Pavan Raymond Work Phone: [facility] 08-31-2023 09:54-0400 Body weight 72.[address] Pavan Raymond Work Phone: [facility] 08-31-2023 09:54-0400 Diastolic blood pressure 77 mm[Hg] Dr. Pavan Raymond Work Phone: [facility] 08-31-2023 09:54-0400 Heart rate 81 /min Dr. Pavan Raymond Work Phone: [facility] 08-31-2023 09:54-0400 Respiratory rate 18 /min Dr. Pavan Raymond Work Phone: [facility] 08-31-2023 09:54-0400 SaO2% (BldA) [Mass fraction] 97 % Dr. Pavan Raymond Work Phone: [facility] 08-31-2023 09:54-0400 Systolic blood pressure 124 mm[Hg] Dr. Pavan Raymond Work Phone: [facility] 08-06-2023 17:52-0400 Body temperature 98 [degF] [employer] Noemí Christian Work Phone: [facility] 08-06-2023 17:52-0400 Diastolic blood pressure 74 mm[Hg] [employer] Noemí Christian Work Phone: [facility] 08-06-2023 17:52-0400 Heart rate 70 /min [employer] Noemí Christian Work Phone: [facility] 08-06-2023 17:52-0400 Respiratory rate 18 /min [employer] Noemí Christian Work Phone: [facility] 08-06-2023 17:52-0400 SaO2% (BldA) [Mass fraction] 96 % [employer] Noemí Christian Work Phone: [facility] 08-06-2023 17:52-0400 Systolic blood pressure 122 mm[Hg] [employer] Noemí Christian Work Phone: [facility] 08-06-2023 14:49-0400 Body mass index (BMI) [Ratio] 28.8 kg/m2 [employer] Noemí Christian Work Phone: [facility] 08-06-2023 14:49-0400 Body weight 71 kg [employer] Noemí Gonzales Work Phone: [facility] 08-06-2023 14:36-0400 Body height 157.48 cm [employer] Noemí Gonzales Work Phone: [facility] 04-13-2023 14:37-0500 Body temperature 98 [degF] Dr. Stephanie Partida Work Phone: [facility] 04-13-2023 14:37-0500 Diastolic blood pressure 56 mm[Hg] Dr. Stephanie Partida Work Phone: [facility] 04-13-2023 14:37-0500 Heart rate 104 /min Dr. Stephanie Partida Work Phone: [facility] 04-13-2023 14:37-0500 Respiratory rate 16 /min Dr. Stephanie Partida Work Phone: [facility] 04-13-2023 14:37-0500 SaO2% (BldA) [Mass fraction] 97 % Dr. Stephanie Partida Work Phone: [facility] 04-13-2023 14:37-0500 Systolic blood pressure 114 mm[Hg] Dr. Stephanie Partida Work Phone: [facility] 04-13-2023 07:36-0500 Inhaled oxygen flow rate 1 L/min Dr. Stephanie Partida Work Phone: [facility] 04-12-2023 15:19-0500 Inhaled oxygen flow rate 2 L/min Dr. Stephanie Partida Work Phone: [facility] 04-12-2023 14:21-0500 Body temperature 97.9 [degF] Dr. Stephanie Partida Work Phone: [facility] 04-12-2023 14:21-0500 Diastolic blood pressure 62 mm[Hg] Dr. Stephanie Partida Work Phone: [facility] 04-12-2023 14:21-0500 Heart rate 86 /min Dr. Stephanie Partida Work Phone: [facility] 04-12-2023 14:21-0500 Respiratory rate 20 /min Dr. Stephanie Partida Work Phone: [facility] 04-12-2023 14:21-0500 SaO2% (BldA) [Mass fraction] 99 % Dr. Stephanie Partida Work Phone: [facility] 04-12-2023 14:21-0500 Systolic blood pressure 150 mm[Hg] Dr. Stephanie Partida Work Phone: [facility] 04-12-2023 12:25-0500 Body height 157.[address] Stephanie Partida Work Phone: [facility] 04-12-2023 12:25-0500 Body mass index (BMI) [Ratio] 29.7 kg/m2 Dr. Stephanie Partida Work Phone: [facility] 04-12-2023 12:25-0500 Body weight 73.[address] Stephanie Partida Work Phone: [facility] 04-12-2023 12:00-0500 Respiratory rate 18 /min Dr. Stephanie Partida Work Phone: [facility] 04-12-2023 10:15-0500 Diastolic blood pressure 71 mm[Hg] Dr. Stephanie Partida Work Phone: [facility] 04-12-2023 10:15-0500 Heart rate 78 /min Dr. Stephanie Partida Work Phone: [facility] 04-12-2023 10:15-0500 SaO2% (BldA) [Mass fraction] 99 % Dr. Stephanie Partida Work Phone: [facility] 04-12-2023 10:15-0500 Systolic blood pressure 155 mm[Hg] Dr. Stephanie Partida Work Phone: [facility] 04-12-2023 06:45-0500 Body height 157.[address] Stephanie Partida Work Phone: [facility] 04-12-2023 06:45-0500 Body mass index (BMI) [Ratio] 30.5 kg/m2 Dr. Stephanie Partida Work Phone: [facility] 04-12-2023 06:45-0500 Body temperature 97.8 [degF] Dr. Stephanie Partida Work Phone: [facility] 04-12-2023 06:45-0500 Body weight 75.[address] Stephanie Partida Work Phone: [facility] 04-03-2023 12:59-0500 Body height 157.[address] Stephanie Partida Work Phone: [facility] 04-03-2023 12:59-0500 Body mass index (BMI) [Ratio] 29.2 kg/m2 Dr. Stephanie Partida Work Phone: [facility] 04-03-2023 12:59-0500 Body temperature 98.3 [degF] Dr. Stephanie Partida Work Phone: [facility] 04-03-2023 12:59-0500 Body weight 72.[address] Stephanie Partida Work Phone: [facility] 04-03-2023 12:59-0500 Diastolic blood pressure 78 mm[Hg] Dr. Stephanie Partida Work Phone: [facility] 04-03-2023 12:59-0500 Heart rate 90 /min Dr. Stephanie Partida Work Phone: [facility] 04-03-2023 12:59-0500 Respiratory rate 14 /min Dr. Stephanie Partida Work Phone: [facility] 04-03-2023 12:59-0500 SaO2% (BldA) [Mass fraction] 97 % Dr. Stephanie Partida Work Phone: [facility] 04-03-2023 12:59-0500 Systolic blood pressure 142 mm[Hg] Dr. Stephanie Partida Work Phone: [facility] 01-14-2023 16:01-0400 Body height 152.[address] Stephanie Partida Work Phone: [facility] 01-14-2023 16:01-0400 Body mass index (BMI) [Ratio] 32.4 kg/m2 Dr. Stephanie Partida Work Phone: [facility] 01-14-2023 16:01-0400 Body temperature 97.1 [degF] Dr. Stephanie Partida Work Phone: [facility] 01-14-2023 16:01-0400 Body weight 75.[address] Stephanie Partida Work Phone: [facility] 01-14-2023 16:01-0400 Diastolic blood pressure 98 mm[Hg] Dr. Stephanie Partida Work Phone: [facility] 01-14-2023 16:01-0400 Heart rate 85 /min Dr. Stephanie Partida Work Phone: [facility] 01-14-2023 16:01-0400 Respiratory rate 17 /min Dr. Stephanie Partida Work Phone: [facility] 01-14-2023 16:01-0400 SaO2% (BldA) [Mass fraction] 98 % Dr. Stephanie Partida Work Phone: [facility] 01-14-2023 16:01-0400 Systolic blood pressure 177 mm[Hg] Dr. Stephanie Partida Work Phone: [facility] 12-18-2022 06:16-0400 Body height 157.[address] Stephanie Partida Work Phone: [facility] 12-18-2022 06:16-0400 Body mass index (BMI) [Ratio] 29.7 kg/m2 Dr. Stephanie Partida Work Phone: [facility] 12-18-2022 06:16-0400 Body temperature 98 [degF] Dr. Stephanie Partida Work Phone: [facility] 12-18-2022 06:16-0400 Body weight 73.[address] Stephanie Partida Work Phone: [facility] 12-18-2022 06:16-0400 Diastolic blood pressure 80 mm[Hg] Dr. Stephaine Partida Work Phone: [facility] 12-18-2022 06:16-0400 Heart rate 74 /min Dr. Stephanie Partida Work Phone: [facility] 12-18-2022 06:16-0400 Respiratory rate 16 /min Dr. Stephanie Partida Work Phone: [facility] 12-18-2022 06:16-0400 SaO2% (BldA) [Mass fraction] 99 % Dr. Stephanie Partida Work Phone: [facility] 12-18-2022 06:16-0400 Systolic blood pressure 153 mm[Hg] Dr. Stephanie Partida Work Phone: [facility] 12-04-2022 14:25-0400 Body height 157.[address] Stephanie Partida Work Phone: [facility] 12-04-2022 14:25-0400 Body mass index (BMI) [Ratio] 29.8 kg/m2 Dr. Stephanie Partida Work Phone: [facility] 12-04-2022 14:25-0400 Body temperature 98.2 [degF] Dr. Stephanie Partida Work Phone: [facility] 12-04-2022 14:25-0400 Body weight 73.[address] Stephanie Partida Work Phone: [facility] 12-04-2022 14:25-0400 Diastolic blood pressure 78 mm[Hg] Dr. Stephanie Partida Work Phone: [facility] 12-04-2022 14:25-0400 Heart rate 83 /min Dr. Stephanie Partida Work Phone: [facility] 12-04-2022 14:25-0400 Respiratory rate 18 /min Dr. Stephanie Partida Work Phone: [facility] 12-04-2022 14:25-0400 SaO2% (BldA) [Mass fraction] 99 % Dr. Stephanie Partida Work Phone: [facility] 12-04-2022 14:25-0400 Systolic blood pressure 184 mm[Hg] Dr. Stephanie Partida Work Phone: [facility] 08-11-2022 11:09-0400 Body weight 70.[address] Stephanie Partida Work Phone: [facility] 08-11-2022 11:09-0400 Diastolic blood pressure 69 mm[Hg] Dr. Stephanie Partida Work Phone: [facility] 08-11-2022 11:09-0400 Heart rate 68 /min Dr. Stephanie Partida Work Phone: [facility] 08-11-2022 11:09-0400 Respiratory rate 18 /min Dr. Stephnaie Partida Work Phone: [facility] 08-11-2022 11:09-0400 Systolic blood pressure 114 mm[Hg] Dr. Stephanie Partida Work Phone: [facility] 08-11-2022 08:43-0400 Body height 157.[address] Stephanie Partida Work Phone: [facility] 06-30-2022 11:26-0500 Body height 157.[address] Stephanie Partida Work Phone: [facility] 06-30-2022 11:26-0500 Body mass index (BMI) [Ratio] 28.1 kg/m2 Dr. Stephanie Partida Work Phone: [facility] 06-30-2022 11:26-0500 Body temperature 97.8 [degF] Dr. Stephanie Partida Work Phone: [facility] 06-30-2022 11:26-0500 Body weight 69.[address] Stephanie Partida Work Phone: [facility] 06-30-2022 11:26-0500 Diastolic blood pressure 83 mm[Hg] Dr. Stephanie Partida Work Phone: [facility] 06-30-2022 11:26-0500 Heart rate 81 /min Dr. Stephanie Partida Work Phone: [facility] 06-30-2022 11:26-0500 Respiratory rate 16 /min Dr. Stephanie Partida Work Phone: [facility] 06-30-2022 11:26-0500 SaO2% (BldA) [Mass fraction] 98 % Dr. Stephanie Partida Work Phone: [facility] 06-30-2022 11:26-0500 Systolic blood pressure 131 mm[Hg] Dr. Stephanie Partida Work Phone: [facility] 04-02-2022 09:00-0500 Body temperature 98.5 [degF] Dr. Stephanie Partida Work Phone: [facility] 04-02-2022 09:00-0500 Diastolic blood pressure 75 mm[Hg] Dr. Stephanie Partida Work Phone: [facility] 04-02-2022 09:00-0500 Heart rate 88 /min Dr. Stephanie Partida Work Phone: [facility] 04-02-2022 09:00-0500 Respiratory rate 18 /min Dr. Stephanie Partida Work Phone: [facility] 04-02-2022 09:00-0500 SaO2% (BldA) [Mass fraction] 96 % Dr. Stephanie Partida Work Phone: [facility] 04-02-2022 09:00-0500 Systolic blood pressure 158 mm[Hg] Dr. Stephanie Partida Work Phone: [facility] 04-02-2022 03:00-0500 Inhaled oxygen flow rate 2 L/min Dr. Stephaine Partida Work Phone: [facility] 03-30-2022 16:01-0500 Body weight [address] Stephanie Partida Work Phone: [facility] 03-30-2022 14:40-0500 Body mass index (BMI) [Ratio] 27.6 kg/m2 Dr. Stephanie Partida Work Phone: [facility] 02-24-2022 13:50-0400 Body temperature 97.5 [degF] Dr. Stephanie Partida Work Phone: [facility] Work Phone: 02-24-2022 13:50-0400 Diastolic blood pressure 59 mm[Hg] Dr. Stephanie Partida Work Phone: [facility] Work Phone: 02-24-2022 13:50-0400 Heart rate 93 /min Dr. Stephanie Partida Work Phone: [facility] Work Phone: 02-24-2022 13:50-0400 Respiratory rate 16 /min Dr. Stephanie Partida Work Phone: [facility] Work Phone: 02-24-2022 13:50-0400 SaO2% (BldA) [Mass fraction] 93 % Dr. Stephanie Partida Work Phone: [facility] Work Phone: 02-24-2022 13:50-0400 Systolic blood pressure 103 mm[Hg] Dr. Stephanie Partida Work Phone: [facility] Work Phone: 02-22-2022 12:00-0400 Body weight 72.[address] Stephanie Partida Work Phone: [facility] Work Phone: 02-18-2022 12:20-0400 Body height 157.[address] Stephanie Partida Work Phone: [facility] Work Phone: 02-15-2022 17:30-0400 Diastolic blood pressure 57 mm[Hg] Dr. Stephanie Partida Work Phone: [facility] Work Phone: 02-15-2022 17:30-0400 Heart rate 101 /min Dr. Stephanie Partida Work Phone: [facility] Work Phone: 02-15-2022 17:30-0400 Systolic blood pressure 116 mm[Hg] Dr. Stephanie Partida Work Phone: [facility] Work Phone: 02-15-2022 13:46-0400 Body temperature 96.8 [degF] Dr. Stephanie Partida Work Phone: [facility] Work Phone: 02-15-2022 13:46-0400 Respiratory rate 16 /min Dr. Stephanie Partida Work Phone: [facility] Work Phone: 02-15-2022 13:46-0400 SaO2% (BldA) [Mass fraction] 96 % Dr. Stephanie Partida Work Phone: [facility] Work Phone: 02-15-2022 12:31-0400 Body weight 75.[address] Stephanie Partida Work Phone: [facility] Work Phone: 02-11-2022 16:49-0400 Body temperature 98.9 [degF] Dr. Stephanie Partida Work Phone: [facility] Work Phone: 02-11-2022 16:49-0400 Diastolic blood pressure 60 mm[Hg] Dr. Stephanie Partida Work Phone: [facility] Work Phone: 02-11-2022 16:49-0400 Heart rate 95 /min Dr. Stephanie Partida Work Phone: [facility] Work Phone: 02-11-2022 16:49-0400 Respiratory rate 18 /min Dr. Stephanie Partida Work Phone: [facility] Work Phone: 02-11-2022 16:49-0400 SaO2% (BldA) [Mass fraction] 93 % Dr. Stephanie Partida Work Phone: [facility] Work Phone: 02-11-2022 16:49-0400 Systolic blood pressure 128 mm[Hg] Dr. Stephanie Partida Work Phone: [facility] Work Phone: 02-11-2022 16:33-0400 Inhaled oxygen flow rate 2 L/min Dr. Stephanie Partida Work Phone: [facility] Work Phone: 02-11-2022 15:22-0400 Body height 157.[address] Stephanie Partida Work Phone: [facility] Work Phone: 02-11-2022 15:22-0400 Body mass index (BMI) [Ratio] 30.2 kg/m2 Dr. Stephanie Partida Work Phone: [facility] Work Phone: 02-11-2022 15:22-0400 Body weight 74.[address] Stephanie Partida Work Phone: [facility] Work Phone: 02-11-2022 09:38-0400 Heart rate 86 /min Dr. Stephanie Partida Work Phone: [facility] Work Phone: 02-11-2022 09:38-0400 Respiratory rate 18 /min Dr. Stephanie Partida Work Phone: [facility] Work Phone: 02-11-2022 09:38-0400 SaO2% (BldA) [Mass fraction] 94 % Dr. Stephanie Partida Work Phone: [facility] Work Phone: 02-11-2022 05:58-0400 Diastolic blood pressure 67 mm[Hg] Dr. Stephanie Partida Work Phone: [facility] Work Phone: 02-11-2022 05:58-0400 Systolic blood pressure 144 mm[Hg] Dr. Stephanie Partida Work Phone: [facility] Work Phone: 02-10-2022 19:00-0400 Body temperature 98.7 [degF] Dr. Stephanie Partida Work Phone: [facility] Work Phone: 02-09-2022 17:04-0400 Body weight 78.[address] Stephanie Partida Work Phone: [facility] Work Phone: 02-09-2022 12:13-0400 Body mass index (BMI) [Ratio] 31.5 kg/m2 Dr. Stephanie Partida Work Phone: [facility] Work Phone: 02-09-2022 10:00-0400 Body temperature 98.1 [degF] Dr. Stephanie Partida Work Phone: [facility] Work Phone: 02-09-2022 10:00-0400 Diastolic blood pressure 68 mm[Hg] Dr. Stephanie Partida Work Phone: [facility] Work Phone: 02-09-2022 10:00-0400 Heart rate 100 /min Dr. Stephanie Partida Work Phone: [facility] Work Phone: 02-09-2022 10:00-0400 Respiratory rate 25 /min Dr. Stephanie Partida Work Phone: [facility] Work Phone: 02-09-2022 10:00-0400 SaO2% (BldA) [Mass fraction] 94 % Dr. Stephanie Partida Work Phone: [facility] Work Phone: 02-09-2022 10:00-0400 Systolic blood pressure 157 mm[Hg] Dr. Stephanie Partida Work Phone: [facility] Work Phone: 02-09-2022 08:04-0400 Body height 157.[address] Stephanie Partida Work Phone: [facility] Work Phone: 02-09-2022 08:04-0400 Body mass index (BMI) [Ratio] 30.2 kg/m2 Dr. Stephanie Partida Work Phone: [facility] Work Phone: 02-09-2022 08:04-0400 Body weight 74.[address] Stephanie Partida Work Phone: [facility] Work Phone: 02-04-2022 20:04-0400 Body temperature 97.9 [degF] Dr. Stephanie Partida Work Phone: [facility] Work Phone: 02-04-2022 20:04-0400 Diastolic blood pressure 75 mm[Hg] Dr. Stephanie Partida Work Phone: [facility] Work Phone: 02-04-2022 20:04-0400 Heart rate 110 /min Dr. Stephanie Partida Work Phone: [facility] Work Phone: 02-04-2022 20:04-0400 Respiratory rate 20 /min Dr. Stephanie Partida Work Phone: [facility] Work Phone: 02-04-2022 20:04-0400 SaO2% (BldA) [Mass fraction] 94 % Dr. Stephanie Partida Work Phone: [facility] Work Phone: 02-04-2022 20:04-0400 Systolic blood pressure 140 mm[Hg] Dr. Stephanie Partida Work Phone: [facility] Work Phone: 02-04-2022 17:00-0400 Body height 157.[address] Stephanie Partida Work Phone: [facility] Work Phone: 02-04-2022 17:00-0400 Body mass index (BMI) [Ratio] 30.2 kg/m2 Dr. Stephanie Partida Work Phone: [facility] Work Phone: 02-04-2022 17:00-0400 Body weight 74.[address] Stephanie Partida Work Phone: [facility] Work Phone: 02-02-2022 11:28-0400 Body temperature 98.6 [degF] Dr. Stephanie Partida Work Phone: [facility] Work Phone: 02-02-2022 11:28-0400 Diastolic blood pressure 62 mm[Hg] Dr. Stephanie Partida Work Phone: [facility] Work Phone: 02-02-2022 11:28-0400 Heart rate 92 /min Dr. Stephanie Partida Work Phone: [facility] Work Phone: 02-02-2022 11:28-0400 Respiratory rate 18 /min Dr. Stephanie Partida Work Phone: [facility] Work Phone: 02-02-2022 11:28-0400 SaO2% (BldA) [Mass fraction] 94 % Dr. Stephanie Partida Work Phone: [facility] Work Phone: 02-02-2022 11:28-0400 Systolic blood pressure 128 mm[Hg] Dr. Stephanie Partida Work Phone: [facility] Work Phone: 02-02-2022 06:00-0400 Body weight 73.[address] Stephanie Partida Work Phone: [facility] Work Phone: 02-01-2022 11:50-0400 Body height 157.[address] Stephanie Partida Work Phone: [facility] Work Phone: 02-01-2022 01:13-0400 Body mass index (BMI) [Ratio] 30.1 kg/m2 Dr. Stephanie Partida Work Phone: [facility] Work Phone: 02-01-2022 00:11-0400 Body temperature 97.9 [degF] Dr. Stephanie Partida Work Phone: [facility] Work Phone: 02-01-2022 00:11-0400 Diastolic blood pressure 56 mm[Hg] Dr. Stephanie Partida Work Phone: [facility] Work Phone: 02-01-2022 00:11-0400 Heart rate 89 /min Dr. Stephanie Partida Work Phone: [facility] Work Phone: 02-01-2022 00:11-0400 Respiratory rate 21 /min Dr. Stephanie Partida Work Phone: [facility] Work Phone: 02-01-2022 00:11-0400 SaO2% (BldA) [Mass fraction] 97 % Dr. Stephanie Partida Work Phone: [facility] Work Phone: 02-01-2022 00:11-0400 Systolic blood pressure 107 mm[Hg] Dr. Stephanie Partida Work Phone: [facility] Work Phone: 01-31-2022 20:05-0400 Body height 157.[address] Stephanie Partida Work Phone: [facility] Work Phone: 01-31-2022 20:05-0400 Body mass index (BMI) [Ratio] 30.2 kg/m2 Dr. Stephanie Partida Work Phone: [facility] Work Phone: 01-31-2022 20:05-0400 Body weight 74.[address] Stephanie Partida Work Phone: [facility] Work Phone: 01-30-2022 11:50-0400 Body mass index (BMI) [Ratio] 30.3 kg/m2 Dr. Stephanie Partida Work Phone: [facility] Work Phone: 01-30-2022 11:50-0400 Body temperature 98.4 [degF] Dr. Stephanie Partida Work Phone: [facility] Work Phone: 01-30-2022 11:50-0400 Body weight 75.[address] Stephanie Partida Work Phone: [facility] Work Phone: 01-30-2022 11:50-0400 Diastolic blood pressure 76 mm[Hg] Dr. Stephanie Partida Work Phone: [facility] Work Phone: 01-30-2022 11:50-0400 Heart rate 88 /min Dr. Stephanie Partida Work Phone: [facility] Work Phone: 01-30-2022 11:50-0400 Respiratory rate 14 /min Dr. Stephanie Partida Work Phone: [facility] Work Phone: 01-30-2022 11:50-0400 SaO2% (BldA) [Mass fraction] 96 % Dr. Stephanie Partida Work Phone: [facility] Work Phone: 01-30-2022 11:50-0400 Systolic blood pressure 132 mm[Hg] Dr. Stephanie Partida Work Phone: [facility] Work Phone: 12-28-2021 11:11-0400 Body height 157.[address] Stephanie Partida Work Phone: [facility] Work Phone: 12-28-2021 11:11-0400 Body mass index (BMI) [Ratio] 29.6 kg/m2 Dr. Stephanie Partida Work Phone: [facility] Work Phone: 12-28-2021 11:11-0400 Body weight 73.[address] Stephanie Partida Work Phone: [facility] Work Phone: 12-28-2021 11:11-0400 Diastolic blood pressure 80 mm[Hg] Dr. Stephanie Partida Work Phone: [facility] Work Phone: 12-28-2021 11:11-0400 Heart rate 60 /min Dr. Stephanie Partida Work Phone: [facility] Work Phone: 12-28-2021 11:11-0400 Respiratory rate 16 /min Dr. Stephanie Partida Work Phone: [facility] Work Phone: 12-28-2021 11:11-0400 SaO2% (BldA) [Mass fraction] 97 % Dr. Stephanie Partida Work Phone: [facility] Work Phone: 12-28-2021 11:11-0400 Systolic blood pressure 131 mm[Hg] Dr. Stephanie Partida Work Phone: [facility] Work Phone: 06-22-2021 06:00-0500 Body height 157.[address] Stephanie Partida Work Phone: [facility] Work Phone: 06-22-2021 06:00-0500 Body mass index (BMI) [Ratio] 29.9 kg/m2 Dr. Stephanie Partida Work Phone: [facility] Work Phone: 06-22-2021 06:00-0500 Body weight 74.[address] Stephanie Partida Work Phone: [facility] Work Phone: 06-22-2021 06:00-0500 Diastolic blood pressure 90 mm[Hg] Dr. Stephanie Partida Work Phone: [facility] Work Phone: 06-22-2021 06:00-0500 Heart rate 116 /min Dr. Stephanie Partida Work Phone: [facility] Work Phone: 06-22-2021 06:00-0500 Respiratory rate 18 /min Dr. Stephanie Partida Work Phone: [facility] Work Phone: 06-22-2021 06:00-0500 SaO2% (BldA) [Mass fraction] 96 % Dr. Stephanie Partida Work Phone: [facility] Work Phone: 06-22-2021 06:00-0500 Systolic blood pressure 144 mm[Hg] Dr. Stephanie Partida Work Phone: [facility] Work Phone: Encounters Encounter Date Encounter Type Care Provider Facility Start: 11-18-2024 End: 11-18-2024 Patient encounter procedure Viri Campos APRN.JAVASCRIPT SOFTWARE ENGINEER Work Phone: General Surgery Comment on above: Decreased appetite ( Primary Dx); Bilateral upper abdominal pain; Nausea; Screen for colon cancer; History of colonic polyps Start: 11-18-2024 End: 11-18-2024 ambulatory VIRI CAMPOS Facility:[facility] Start: 11-14-2024 End: 11-14-[address] Stephanie Partida DO Work Phone: -Outpatient Breast Imaging Start: 11-14-2024 End: 11-14-[address] Stephanie Partida DO -Outpatient Breast Imaging Work Phone: Start: 11-14-2024 End: 11-14-2024 ambulatory Stephanie Partida Facility:[facility] Start: 10-22-2024 End: 10-22-2024 Patient encounter procedure Clifton Joe DIRECTOR BANKING-C -[facility] Work Phone: Start: 10-22-2024 End: 10-22-2024 ambulatory Noemí Gonzales DIRECTOR BANKING-C Work Phone: [facility] Work Phone: Start: 08-08-2024 End: 08-08-2024 Emergency department patient visit Noemí Gonzales DIRECTOR BANKING-C Work Phone: -Emergency Department Work Phone: Start: 08-05-2024 End: 08-05-2024 ambulatory Shelia Dhillon RN NURSE REPAIRER KILN CAR Comment on above: Rectal Bleeding Start: 08-05-2024 End: 08-05-2024 Patient encounter procedure Lizandro Castillo [facility] Start: 08-05-2024 End: 08-05-2024 ambulatory Stephanie Malys Facility:[facility] Start: 08-01-2024 End: 08-01-2024 ambulatory STEPHANIE A MALYS Facility:[facility] Start: 08-01-2024 End: 08-01-2024 Patient encounter procedure Viri Campos APRN.JAVASCRIPT SOFTWARE ENGINEER Work Phone: General Surgery Comment on above: Multiple adenomatous polyps (Primary Dx) Start: 07-12-2024 End: 07-12-2024 ambulatory Noemí Gonzales DIRECTOR BANKING-C Work Phone: [facility] Work Phone: Start: 07-12-2024 End: 07-12-[address] Stephanie Vazquez [place] Work Phone: Start: 07-12-2024 End: 07-12-2024 ambulatory Noemí Gonzales Facility:[facility] Start: 06-10-2024 End: 06-10-2024 [facility] Start: 06-10-2024 End: 06-10-2024 Subsequent hospital visit by physician Radha Hester MD Work Phone: Gastroenterology Comment on above: Polyp of colon, unsp ecified part of colon, unspecified type [K63.5] Start: 06-03-2024 End: 06-03-2024 Telephone encounter Clifton Nugent RNin classroom tutor Comment on above: Appointment Start: 05-13-2024 End: 05-13-2024 Patient encounter procedure Nery Castillo Work Phone: Start: 05-13-2024 End: 05-13-2024 ambulatory Noemí Christian Facility:[facility] Start: 04-05-2024 End: 04-05-2024 Patient encounter procedure Noemí Gonzales DIRECTOR BANKING-C -Cardiovascular Services Work Phone: Start: 04-05-2024 End: 04-05-2024 ambulatory [facility] Facility:[facility] Start: 02-08-2024 End: 02-08-2024 Orders Only I Mikey Hester MD Work Phone: Colorectal Surgery Comment on above: Polyp of colon, unsp ecified part of colon, unspecified type (Primary Dx) Start: 12-27-2023 End: 12-27-2023 ambulatory [facility] Facility:[facility] Start: 12-11-2023 ambulatory Saad Yenifer Kaleighjesús Facility :[facility] Start: 12-11-2023 End: 12-11-2023 ambulatory [facility] Facility:[facility] Start: 11-28-2023 End: 11-28-2023 ambulatory STEPHANIE Kriss DAMIENISAK Facility:[facility] Start: 11-28-2023 End: 11-28-2023 Patient encounter procedure Viri Campos APRN.CNP Work Phone: General Surgery Comment on above: Multiple adenomatous polyps (Primary Dx) Start: 11-21-2023 End: 11-21-2023 Subsequent hospital visit by physician Jerri Lemon MD Work Phone: Ambulatory Surgery Comment on above: Gastroesophageal ref lux disease without esophagitis [K21.9] Start: 11-03-2023 Telephone encounter Jerri Lemon MD Work Phone: General Surgery Comment on above: Waitlist Maintenance Start: 11-03-2023 End: 11-03-2023 Patient encounter procedure Jerri Lemon MD Work Phone: General Surgery Comment on above: Gastroesophageal ref lux disease without esophagitis (Primary Dx); Special screening for malignant neoplasms, colon Start: 09-19-2023 End: 09-19-[address] Pavan Raymond Work Phone: [facility] Work Phone: Start: 09-19-2023 End: 09-19-[address] Pavan Raymond Work Phone: [facility] [place] Work Phone: Start: 09-14-2023 End: 09-14-[address] Pavan Raymond Work Phone: [facility] Work Phone: Start: 09-14-2023 End: 09-14-[address] Pavan Raymond Work Phone: [facility]-Outpatient Breast Imaging Work Phone: Start: 08-31-2023 End: 08-31-[address] Pavan Raymond Work Phone: [facility] Work Phone: Start: 08-06-2023 End: 08-06-2023 Emergency department patient visit DIRECTOR BANKING-C Noemí Gonzales Work Phone: [facility]-Emergency Department Work Phone: Start: 08-04-2023 End: 08-04-2023 ambulatory DIRECTOR BANKING-C Noemí Gonzales Work Phone: [facility] Work Phone: Start: 08-04-2023 End: 08-04-2023 Patient encounter procedure DIRECTOR BANKING-C Noemí Gonzales Work Phone: [facility]-Laboratory, [place] Work Phone: Start: 07-13-2023 Non-patient / Non-visit Dr. Marianela Partida Work Phone: [facility] Start: 07-13-2023 End: 07-13-[address] Stephanie Partida Work Phone: [facility] Work Phone: Start: 07-13-2023 End: 07-13-[address] Stephanie Partida Work Phone: [facility]-Cardiovascular Services Work Phone: Start: 07-11-2023 End: 07-11-[address] Stephanie Partida Work Phone: [facility] Work Phone: Start: 07-11-2023 End: 07-11-[address] Stephanie Partida Work Phone: [facility] Start: 06-27-2023 End: 06-27-[address] Stephanie Partida Work Phone: [facility] Work Phone: Start: 06-27-2023 End: 06-27-[address] Stephanie Partida Work Phone: [facility]-Radiology, [place] Work Phone: Start: 04-13-2023 Non-patient / Non-visit Dr. Marianela Partida Work Phone: [facility] Inpatient Physicians Work Phone: Start: 04-12-2023 Non-patient / Non-visit Dr. Marianela Partida Work Phone: [facility] Start: 04-12-2023 End: 04-13-2023 Evaluation and management of inpatient Dr. Stephanie Partida Work Phone: [facility]-Progressive Care Unit Work Phone: Start: 04-12-2023 End: 04-13-[address] Stephanie Partida Work Phone: [facility] Work Phone: Start: 04-12-2023 Non-patient / Non-visit Dr. Marianela Partida Work Phone: [facility] Start: 04-10-2023 End: 04-10-[address] Stephanie Partida Work Phone: [facility] Work Phone: Start: 04-10-2023 End: 04-10-[address] [facility] Work Phone: Start: 04-03-2023 End: 04-03-[address] Stephanie Partida Work Phone: [facility] Work Phone: Start: 04-03-2023 End: 04-03-[address] [facility] Partida [facility] Work [facility]: Start: 04-03-2023 End: 04-03-[address] Stephanie Partida Work Phone: [facility] Work Phone: Start: 03-22-2023 End: 03-22-[address] Stephanie Partida Work Phone: [facility] Work Phone: Start: 03-22-2023 End: 03-22-[address] Stephanie Partida [facility] Work [facility]: Start: 01-30-2023 End: 01-30-[address] Stephanie Partida Work Phone: [facility] Work Phone: Start: 01-30-2023 End: 01-30-[address] Stephanie Partida [facility] Work [facility]: Start: 01-14-2023 End: 01-14-2023 Emergency department patient visit Dr. Stephanie Partida Work Phone: [facility]-Emergency Department Work Phone: Start: 12-18-2022 Non-patient / Non-visit Dr. Marianela Partida Work Phone: [facility] Start: 12-18-2022 End: 12-18-2022 Emergency department patient visit Dr. Stephanie Partida Work Phone: [facility]-Emergency Department Work Phone: Start: 12-04-2022 End: 12-04-2022 Emergency department patient visit Dr. Stephanie Partida Work Phone: [facility]-Emergency Department Work Phone: Start: 11-22-2022 End: 11-22-[address] Stephanie Partida Work Phone: [facility] Work Phone: Start: 11-22-2022 End: 11-22-[address] Stephanie Partida Work Phone: [facility] Work Phone: Start: 08-30-2022 End: 08-30-[address] Stephanie Partida Work Phone: [facility] Start: 08-25-2022 Non-patient / Non-visit Dr. Marianela Partida Work Phone: [facility] Start: 08-25-[address] Stephanie thomas [facility] Start: 08-23-2022 End: 08-23-[address] Stephanie Partida Work Phone: [facility] Work Phone: Start: 08-23-2022 End: 08-23-[address] Stephanie Partida Work Phone: [facility]-Outpatient Breast Imaging Start: 08-11-2022 End: 08-11-[address] Stephanie Partida Work Phone: [facility] Start: 06-30-2022 End: 06-30-2022 Emergency department patient visit Dr. Stephanie Partida Work Phone: [facility]-Emergency Department Start: 06-30-2022 Non-patient / Non-visit Dr. Marianela Partida Work Phone: [facility] Start: 06-30-2022 End: 06-30-[address] Stephanie Partida Work Phone: [facility] Work Phone: Start: 06-30-2022 End: 06-30-[address] Stephanie Partida Work Phone: [facility]-Cardiovascular Services Start: 06-27-2022 End: 06-27-[address] Stephanie Partida Work Phone: [facility] Work Phone: Start: 06-27-2022 End: 06-27-[address] Stephanie Partida Work Phone: [facility]-Laboratory, Lizandro Mack [facility] Start: 03-30-2022 End: 04-02-2022 Evaluation and management of inpatient Dr. Stephanie Partida Work Phone: [facility]-Medical Surgical 3 Start: 03-10-2022 End: 03-10-[address] Stephanie Partida Work Phone: [facility] Work Phone: Start: 03-10-2022 End: 03-10-[address] Stephanie Partida Work Phone: [facility]-Laboratory, Specimen Start: 03-03-2022 End: 03-03-[address] Stephanie Partida Work Phone: [facility] Work Phone: Start: 03-03-2022 End: 03-03-[address] Stephanie Partida Work Phone: [facility]-Laboratory, Specimen Start: 02-14-2022 Non-patient / Non-visit Dr. Marianela Partida Work Phone: [facility] Start: 02-11-2022 Non-patient / Non-visit Dr. Marianela Partida Work Phone: [facility] Start: 02-11-2022 End: 02-11-2022 Admission to same day surgery center Dr. Stephanie Partida Work Phone: [facility]-Endoscopy Start: 02-11-2022 End: 02-11-[address] Stephanie Partida Work Phone: [facility] Work Phone: Start: 02-10-2022 End: 02-10-[address] Stephanie Partida Work Phone: [facility] Work Phone: Start: 02-10-2022 End: 02-10-[address] Stephanie Partida Work Phone: [facility] Start: 02-10-2022 Non-patient / Non-visit Dr. Marianela Partida Work Phone: [facility] Start: 02-09-2022 End: 02-24-2022 Evaluation and management of inpatient Dr. Stephanie Partida Work Phone: [facility]-Transitional Care Unit Start: 02-09-2022 End: 02-09-2022 Emergency department patient visit Dr. Stephanie Partida Work Phone: [facility]-Emergency Department Start: 02-04-2022 End: 02-04-2022 Emergency department patient visit Dr. Stephanie Partida Work Phone: [facility]-Emergency Department Start: 02-02-2022 Non-patient / Non-visit Dr. Marianela Partida Work Phone: [facility] Inpatient Physicians Start: 02-01-2022 Non-patient / Non-visit Dr. Marianela Partida Work Phone: [facility]patient [facility] Start: 01-31-2022 End: 02-02-2022 Evaluation and management of inpatient Dr. Stephanie Partida Work Phone: [facility]-Progressive Care Unit Start: 01-30-2022 End: 01-30-[address] Stephanie Partida Work Phone: [facility] Work Phone: Start: 01-30-2022 End: 01-30-[address] Stephanie Partida Work Phone: [facility]-Laboratory, Specimen Start: 01-30-2022 End: 01-30-[address] Stephanie Partida Work Phone: [facility] Start: 01-13-2022 End: 01-13-[address] Stephanie Partida Work Phone: [facility] Work Phone: Start: 01-13-2022 End: 01-13-[address] Stephanie Pratida Work Phone: [facility] Start: 12-28-2021 End: 12-28-[address] Stephanie Partida Work Phone: [facility] Start: 09-14-2021 End: 09-14-[address] [facility] Part[facility] [place] Start: 08-20-2021 End: 08-20-[address] Stephanie Partida Work Phone: [facility]-Outpatient Breast Imaging Start: 06-22-2021 End: 06-22-[address] Stephanie Partida Work Phone: [facility] Start: 06-09-2021 End: 06-09-[address] Stephanie Partida Work Phone: [facility]-Sleep Lab Procedures Date Procedure Procedure Detail Performing Clinician Start: 11-14-[address] Stephanie Partida DO Work Phone: Start: 08-08-2024 X-ray of chest, PA and lateral views Noemí Gonzales DIRECTOR BANKING-C Work Phone: Start: 08-08-2024 Estimated creatinine clearance Noemí ramos DIRECTOR BANKING-C Work Phone: Start: 07-12-2024 Vitamin D, 25-hydroxy measurement Noemí Gonzales DIRECTOR BANKING-C Work Phone: Comment on above: Vitamin D StatusDeficiency: <20 ng/mL (5 0nmol/L)Insufficiency: 20-30 ng/mL (50-75 nmol/L)Sufficiency: 30-100 ng/mL (75-250 nmol/L)Toxicity: >100 ng/mL (>250 nmol/L) Start: 06-10-2024 Colonoscopy flx dx w/collj spec when pfrmd I Mikey Hester MD Work Phone: Start: 11-21-2023 Colonoscopy flx dx w/collj spec when pfrmd Jerri Lemon MD Work Phone: Start: 11-21-2023 Esophagogastroduodenoscopy transoral diagnostic Jerri Lemon MD Work Phone: Start: 09-19-2023 Plain X-ray of shoulder Dr. Pavan cleveland Work Phone: Start: 09-14-[address] Pavan Raymond Work Phone: Start: 08-06-2023 SARS-CoV-2, Influenza & RSV (PCR) DIRECTOR BANKING-C R achegrant Christian Work Phone: Start: 06-27-2023 X-ray of cervical spine Dr. Stephanie Partida Work Phone: Start: 04-12-2023 Coronavirus COVID-[address] Stephanie Partida Work Phone: Start: 04-12-2023 CT angiography of chest with contrast Dr. Stephanie Partida Work Phone: Start: 04-12-2023 Plain chest X-ray Dr. Stephanie Partida Work Phone: Start: 04-10-[address] Stephanie Partida Work Phone: Start: 04-03-[address] Stephanie Partida Work Phone: Start: 03-22-2023 Coronavirus COVID-[address] Stephanie Partida Work Phone: Start: 01-30-[address] Stephanie Partida Work Phone: Start: 01-14-2023 CT of abdomen and pelvis without contrast Dr. Stephanie Partida Work Phone: Start: 01-14-[address] Stephanie Partida Work Phone: Start: 12-04-2022 CT cervical spine without contrast Dr. Grant Partida Work Phone: Start: 08-23-[address] Stephanie Partida Work Phone: Start: 06-30-2022 Radiologic examination of knee Dr. Stephanie Partida Work Phone: Start: 03-30-[address] Stephanie Partida Work Phone: Start: 02-11-[address] Stephanie escudero Work Phone: Start: 02-10-2022 CT of chest and abdomen Dr. Stephanie Partida Work Phone: Start: 02-09-[address] Stephanie Partida Work Phone: Start: 02-09-2022 End: 02-09-2022 Plain chest X-ray Dr. Stephanie Partida Work Phone: Start: 02-04-2022 Plain chest X-ray Dr. Stephanie Partida Work Phone: Start: 02-01-2022 Computed tomography of abdomen and pelvis with contrast Dr. Stephanie Partida Work Phone: Start: 01-31-2022 Plain chest X-ray Dr. Stephanie Partida Work Phone: Start: 01-13-2022 Radiography of thoracic spine Dr. Stephanie thoams Work Phone: Start: 09-14-2021 Diagnostic radiography of abdomen Dr. Marianela Partida Work Phone: Start: 08-20-[address] Stephanie Partida Work Phone: Start: 04-07-2020 Antibody screen Comment on above: Order Comment: Specimen Type: BLOOD SPEC IMEN Performed By: #### T SCR #### [facility] BLOOD BANK [facility] [id number] Start: 09-09-2003 History of placement of stent for coronary artery disease History of coronary artery stent placement Dr. Stephanie Partida Work Phone: Comment on above: PCI w/ 3.0 x 16 mm Taxus drug-eluting st ent 2003 Bacteria identified in Blood by Culture Dr. Stephanie Partida Work Phone: Measurement of occul t blood in stool specimen using immunoassay Dr. Stephanie Partida Work Phone: Respiratory Panel (PCR) Dr. Stephanie Partida Work Phone: SARS-CoV-2 & FLU Antigen (Rapid) Dr. Stephanie Partida Work Phone: Urine culture Dr. Stephanie Partida Work Phone: Urine culture Dr. Stephanie Partida Work Phone: Viral antigen assay Dr. Stephanie Partida Work Phone: Plan of Treatment Date Care Activity Detail Author Start: 04-07-2030 Urine microalbumin profile DTaP,Tdap,Td Vaccine (2 - Td or Tdap) [facility] Start: 01-13-2025 Influenza vaccination Influenza Vaccine (#1) [facility] Start: 01-03-2025 End: 01-03-2025 Patient encounter procedure 01/03/2025 11:00 AM EDT Appointment Ambulatory Surgery [address] [place], [place] [id number] Jerri Lemon MD [address] [place], [place] [id number] Ambulatory Surgery Start: 08-27-2024 Covid-19 Vaccine ( season) Covid-19 Vaccine ( season) [facility] Start: 08-08-2024 [facility] Start: 06-10-2024 End: 06-10-2024 Patient encounter procedure 06/10/2024 7:30 AM EST Appointment Gastroenterology [address] [place] [address] Radha Hester MD [address] [place] [address] One large polyp in the cecum. Biopsied.//Dr Lemon//[facility] Comment on above: One large polyp in the cecum. Biopsied./ /Dr Lemon//[facility] Start: 05-15-2024 Advance Directive Discussion Advance Directive Discussion [facility] Start: 02-06-2024 End: 02-06-2024 Patient encounter procedure 02/06/2024 11:00 AM EDT Appointment Ambulatory Surgery [address] [place] [address] Jerri Lemon MD [address] [address] Ambulatory Surgery Start: 01-14-2024 Covid-19 Vaccine ( season) Covid-19 Vaccine () [facility] Start: 01-14-2024 Influenza vaccination Influenza Vaccine (#1) [facility] Start: 11-30-2023 End: 11-30-2023 Patient encounter procedure 11/30/2023 1:30 PM EDT Office Visit Colorectal Surgery [address] [address] Sera Buckner MD [address] [place] [address] Multiple adenomatous polyps [D36.9] Colorectal Surgery Comment on above: Multiple adenomatous polyps [D36.9] Start: 11-28-2023 End: 11-28-2023 Patient encounter procedure 11/28/2023 1:15 PM EDT Office Visit General Surgery [address] [place] [address] Jerri Lemon MD [address] [address] 11/21/23 colonscopy follow up General Surgery Comment on above: 11/21/23 colonscopy follow up Start: 08-06-2023 End: 08-06-2023 [facility] Start: 06-20-2023 Covid-19 Vaccine ( season) Covid-19 Vaccine () [facility] Start: 05-15-2023 Advance Directive Discussion Advance Directive Discussion [facility] Start: 05-15-2023 Behavioral Health Screening Behavioral Health Screening [facility] Start: 04-13-2023 Patient discharge [facility] Start: 04-13-2023 Blood chemistry [facility] Start: 04-12-2023 Oxygen therapy [facility] Start: 04-12-2023 Assessment of risk of venous thromboembolism [facility] Start: 04-12-2023 Insertion of catheter into peripheral vein [facility] Start: 04-12-2023 Measuring intake and output [facility] Start: 04-12-2023 Providing care according to standard [facility] Start: 04-12-2023 Provision of activity privileges [facility] Start: 04-12-2023 Referral to occupational therapist [facility] Start: 04-12-2023 Referral to service [facility] Start: 04-12-2023 Verification routine [facility] Start: 04-12-2023 Following clinical pathway protocol [facility] Start: 04-12-2023 Admission procedure [facility] Start: 04-12-2023 End: 04-12-2023 [facility] Start: 04-12-2023 Inhalation therapy procedure [facility] Start: 04-10-2023 Bacteria identified in Urine by Culture Urine Culture [facility] Start: 04-10-2023 [facility] Start: 04-08-2023 Diabetes Screening Diabetes Screening [facility] Start: 04-03-2023 Patient referral [facility] Work Phone: Start: 01-14-2023 [facility] Start: 01-14-2023 Bacteria identified in Urine by Culture Urine Culture [facility] Start: 04-02-2022 Patient discharge [facility] Start: 03-31-2022 Removal of urinary catheter [facility] Start: 03-30-2022 Referral to service [facility] Start: 03-30-2022 Admission procedure [facility] Start: 03-30-2022 Following clinical pathway protocol [facility] Start: 03-30-2022 Application of intermittent pneumatic compression device [facility] Start: 03-30-2022 Deep breathing and coughing exercises [facility] Start: 03-30-2022 Incentive spirometry [facility] Start: 03-30-2022 Measuring intake and output [facility] Start: 03-30-2022 Patient education [facility] Start: 03-30-2022 Provision of activity privileges [facility] Start: 03-30-2022 Taking patient vital signs [facility] Start: 03-30-2022 Vital signs measurements [facility] Start: 03-30-2022 [facility] Start: 03-30-2022 Patient referral to dietitian [facility] Start: 03-10-2022 [facility] Work Phone: Start: 03-10-2022 Blood chemistry [facility] Work Phone: Start: 03-03-2022 Blood chemistry [facility] Work Phone: Start: 02-25-2022 Development of care plan [facility] Work Phone: Start: 02-24-2022 Blood chemistry [facility] Work Phone: Start: 02-24-2022 Patient discharge [facility] Work Phone: Start: 02-22-2022 [facility] Work Phone: Start: 02-17-2022 Blood chemistry [facility] Work Phone: Start: 02-16-2022 SARS-CoV-2 (COVID-19) Ag [Presence] in Respiratory specimen by Rapid immunoassay [facility] Work Phone: Start: 02-14-2022 [facility] Work Phone: Start: 02-11-2022 Egd transoral biopsy single/multiple EGD BIOPSY SINGLE/MULTIPLE [facility] Work Phone: Start: 02-11-2022 Egd transoral control bleeding any method EGD CONTROL BLEEDING ANY [facility] Work Phone: Start: 02-11-2022 Patient discharge [facility] Work Phone: Start: 02-10-2022 Referral to gastroenterology service [facility] Work Phone: Start: 02-10-2022 [facility] Work Phone: Start: 02-10-2022 End: 02-10-2022 Blood culture [facility] Work Phone: Start: 02-10-2022 End: 02-10-2022 [facility] Work Phone: Start: 02-10-2022 Verification routine [facility] Work Phone: Start: 02-10-2022 Development of care plan [facility] Work Phone: Start: 02-09-2022 Developing a treatment plan [facility] Work Phone: Start: 02-09-2022 End: 02-09-2022 Following clinical pathway protocol [facility] Work Phone: Start: 02-09-2022 Admission procedure [facility] Work Phone: Start: 02-09-2022 Measuring intake and output [facility] Work Phone: Start: 02-09-2022 Patient referral to dietitian [facility] Work Phone: Start: 02-09-2022 Referral to occupational therapist [facility] Work Phone: Start: 02-09-2022 Referral to service [facility] Work Phone: Start: 02-09-2022 Vital signs measurements [facility] Work Phone: Start: 02-09-2022 End: 02-09-2022 [facility] Work Phone: Start: 02-09-2022 Blood culture [facility] Work Phone: Start: 02-09-2022 Patient referral to dietitian [facility] Work Phone: Start: 02-04-2022 [facility] Work Phone: Start: 02-02-2022 Patient discharge [facility] Work Phone: Start: 02-01-2022 Following clinical pathway protocol [facility] Work Phone: Start: 02-01-2022 Ambulation without limitation [facility] Work Phone: Start: 02-01-2022 Assessment of risk of venous thromboembolism [facility] Work Phone: Start: 02-01-2022 Insertion of catheter into peripheral vein [facility] Work Phone: Start: 02-01-2022 Measuring intake and output [facility] Work Phone: Start: 02-01-2022 Oxygen therapy [facility] Work Phone: Start: 02-01-2022 Providing care according to standard [facility] Work Phone: Start: 02-01-2022 Referral to occupational therapist [facility] Work Phone: Start: 02-01-2022 Referral to service [facility] Work Phone: Start: 02-01-2022 [facility] Work Phone: Start: 02-01-2022 Patient referral to dietitian [facility] Work Phone: Start: 01-31-2022 Verification routine [facility] Work Phone: Start: 01-31-2022 Admission procedure [facility] Work Phone: Start: 01-31-2022 End: 01-31-2022 [facility] Work Phone: Start: 01-31-2022 End: 01-31-2022 Blood culture [facility] Work Phone: Start: 01-30-2022 [facility] Work Phone: Start: 09-27-2017 Screening for osteoporosis Bone Density Screening [facility] Start: 10-18-2016 Hepatitis B surface antibody level LDL Cholesterol [facility] Start: 07-13-2015 Medicare Annual Wellness Visit Medicare Annual Wellness Visit [facility] Start: 1958 Anxiety Screening Anxiety Screening [facility] Start: 1958 Depression Screening Depression Screening [facility] Anion gap measurement [facility] Bacteria identified in Blood by Culture Blood Culture [facility] Work Phone: Bacteria identified in Urine by Culture [facility] Work Phone: Blood culture [facility] Work Phone: BUN/Creatinine ratio [facility] Calcium [Mass/volume ] in Serum or Plasma [facility] Carbon dioxide, tota l [Moles/volume] in Serum or Plasma [facility] Chloride [Moles/volu me] in Serum or Plasma [facility] Creatinine [Moles/volume] in Serum or Plasma [facility] End: 11-02-2024 EGD DIAGNOSTIC EGD DIAGNOSTIC Endoscopy Routine Gastroesophageal reflux disease without esophagitis Special screening for malignant neoplasms, colon 1 Occurrences starting 11/03/2023 until 11/02/2024 [place] Work Phone: Comment on above: 1 Occurrences starting 11/03/2023 until 11/02/2024 End: 11-18-2025 EGD DIAGNOSTIC EGD DIAGNOSTIC Endoscopy Routine Decreased appetite Bilateral upper abdominal pain Nausea 1 Occurrences starting 11/18/2024 until 11/18/2025 [place] Work Phone: Comment on above: 1 Occurrences starting 11/18/2024 until 11/18/2025 End: 02-07-2025 Flexible sigmoidoscopy study COLONOSCOPY DIAGNOSTIC Endoscopy Routine Polyp of colon, unspecified part of colon, unspecified type 1 Occurrences starting 02/08/2024 until 02/07/2025 [place] Work Phone: Comment on above: 1 Occurrences starting 02/08/2024 until 02/07/2025 Glucose [Mass/volume ] in Serum or Plasma [facility] Hematocrit [Volume Fraction] of Blood [facility] Hemoglobin [Mass/vol ume] in Blood [facility] Leukocytes [#/volume ] in Blood [facility] Mean corpuscular hemoglobin concentration determination [facility] Mean corpuscular hemoglobin determination [facility] Measurement of renal function [facility] Neutrophil count [facility] Neutrophil percent differential count [facility] Patient Education [facility] Work Phone: Patient referral [facility] Work Phone: Platelets [#/volume] in Blood [facility] Potassium [Moles/vol ume] in Serum or Plasma [facility] Red blood cell count [facility] Red cell distributio n width determination [facility] End: 11-02-2024 Screening colonoscopy COLONOSCOPY SCREENING Endoscopy Routine Gastroesophageal reflux disease without esophagitis Special screening for malignant neoplasms, colon 1 Occurrences starting 11/03/2023 until 11/02/2024 [facility] Comment on above: 1 Occurrences starting 11/03/2023 until 11/02/2024 End: 11-18-2025 Screening colonoscopy COLONOSCOPY SCREENING Endoscopy Routine Screen for colon cancer History of colonic polyps 1 Occurrences starting 11/18/2024 until 11/18/2025 [facility] Comment on above: 1 Occurrences starting 11/18/2024 until 11/18/2025 Sodium [Moles/volume ] in Serum or Plasma [facility] SURGICAL PATHOLOGY [place] Work Phone: Comment on above: Release Upon Ordering for 1 Occurrences starting 11/21/2023, 1 completed SURGICAL PATHOLOGY [place] Work Phone: Comment on above: Release Upon Ordering for 1 Occurrences starting 06/10/2024, 1 completed Urea nitrogen [Mass/volume] in Serum or Plasma [facility] Urine culture Urine Culture [facility] Work Phone: [facility] Work Phone: [facility] Immunizations Immunization Date Immunization Notes Care Provider Carlos Manuel [facility] 02-27-2024 influenza virus vaccine, unspecified formulation Viri Campos APRN.CNP Work Phone: [facility] 02-17-2023 influenza virus vaccine, unspecified formulation Jerri Lemon MD Work Phone: [facility] 02-22-2022 influenza, injectabl e, quadrivalent, preservative free Dr. Stephanie Partida Work Phone: [facility] 02-22-2022 influenza, seasonal, injectable Dr. Stephanie Partida Work Phone: [facility] 08-18-2021 Covid (Moderna) Dr. Stephanie parisi Work Phone: [facility] 03-11-2021 Carlaid (Moderna) Dr. Stephanie parisi Work Phone: [facility] 02-26-2021 Influenza, high dose seasonal Noemí Christian [employer] Work Phone: [facility] 02-26-2021 influenza, high dose seasonal, preservative-free Dr. Stephanie Partida Work Phone: [facility] 02-26-[address] Stephanie Partida Work Phone: [facility] 12-25-[address] Stephanie Partida Work Phone: [facility] 07-02-2020 Covid (Moderna) Dr. Stephanie parisi Work Phone: [facility] 06-04-2020 Covid (Moderna) Dr. Stephanie parisi Work Phone: [facility] 04-07-2020 tetanus toxoid, redu tru diphtheria toxoid, and acellular pertussis vaccine, adsorbed Dr. Stephanie Partida Work Phone: [facility] 02-20-2020 influenza, injectabl e, quadrivalent, contains preservative Jerri Lemon MD Work Phone: [facility] 02-20-2020 influenza, injectabl e, quadrivalent, preservative free Dr. Stephanie Partida Work Phone: [facility] 02-20-2020 influenza, seasonal, injectable Dr. Stephanie Partida Work Phone: [facility] 02-20-2020 pneumococcal conjuga te vaccine, [address] Stephanie Partida Work Phone: [facility] 04-17-2017 influenza, injectabl e, quadrivalent, preservative free Dr. Stephanie Partida Work Phone: [facility] 04-17-2017 influenza, seasonal, injectable Dr. Stephanie Partida Work Phone: [facility] 04-17-2017 influenza, seasonal, injectable, preservative free Jerri eLmon MD Work Phone: [facility] 05-20-2016 influenza, high dose seasonal, preservative-free Jerri Lemon MD Work Phone: [facility] 09-17-2015 pneumococcal conjuga te vaccine, [address] Stephanie Partida Work Phone: [facility] 02-11-2015 Influenza, high dose seasonal Noemí Gonzales [employer] Work Phone: [facility] 02-11-2015 influenza, high dose seasonal, preservative-free Dr. Stephanie Partida Work Phone: [facility] 09-02-2014 zoster vaccine, live Dr. Cecelia Partida Work Phone: [facility] 2014 influenza, injectabl e, quadrivalent, preservative free Dr. Stephanie Partida Work Phone: [facility] 2014 influenza, seasonal, injectable Dr. Stephanie Partida Work Phone: [facility] 04-04-2013 influenza virus vaccine, unspecified formulation Jerri Lemon MD Work Phone: [facility] 05-22-2012 influenza virus vaccine, unspecified formulation Jerri Lemon MD Work Phone: [facility] 04-10-2011 influenza virus vaccine, unspecified formulation Jerri Lemon MD Work Phone: [facility] 04-02-2010 influenza virus vaccine, unspecified formulation Jerri Lemon MD Work Phone: [facility] 06-08-2009 influenza virus vaccine, live, attenuated, for intranasal use Jerri Lemon MD Work Phone: [facility] Work Phone: 08-19-2008 pneumococcal polysaccharide vaccine, 23 valent Jerri Lemon MD Work Phone: [facility] 04-17-2008 influenza virus vaccine, unspecified formulation Jerri Lemon MD Work Phone: [facility] NEGATED: Highlighted row has not occurred!04-07-2020 tetanus toxoid, reduced diphtheria toxoid, and acellular pertussis vaccine, adsorbed Jerri Lemon MD Work Phone: [facility] Comment on above: Deferred: - administ [facility] [place] Payers Date Payer Category Payer Self-pay [id number] 2015 Medicare [id number] 2013 Private Health Insurance [id number] 2013 Unknown [id number] 2005 Medicare [id number] Unknown [id number] Unknown [facility] 0 [id number] 9ead Unknown [id number] Unknown [id number] Unknown [id number] Unknown [id number] Unknown [id number] Unknown [id number] Unknown [id number] Unknown [id number] Unknown [id number] Unknown [id number] Social History Date Type Detail Facility Start: 06-22-2021 End: 08-06-2023 Tobacco smoking status [facility] Unknown if ever smoked [facility] Start: 12-21-2020 Occasional [facility] Start: 04-10-2020 None [facility] Start: 12-21-2020 Homeless [facility] Start: 04-10-2020 Non-smoker [facility] Start: 1940 Sex Assigned At Female W [facility] Start: 11-03-2023 End: 08-08-2024 Tobacco smoking status [facility] Ex-smoker [facility] Start: 05-15-1988 End: 05-15-1991 History of tobacco use Current smoker [facility] Start: 05-15-1988 End: 05-15-1991 History of tobacco use Cigarette Smoker [facility] Start: 04-08-2020 End: 11-03-2023 Cigarettes smoked current (pack per day) - Reported 1 [facility] Work Phone: Start: 11-03-2023 Tobacco use and exposure Smokeless tobacco non-user [facility] Start: 11-03-2023 End: 11-18-2024 Alcohol intake Current drinker of alcohol (finding) [facility] Start: 04-08-2020 End: 11-03-2023 Tobacco use panel [facility] Work Phone: How hard is it for you to pay for the very basics like food, housing, medical care, and heating Not hard at all [facility] Work Phone: (I/We) worried whether (my/our) food would run out before (I/we) got money to buy more. Never true [facility] Start: 07-28-2020 Alcohol Comment [facility] Start: 1940 Sex Assigned At Not on file [facility] Start: 07-25-2024 End: 08-12-2024 Sex Female (finding) [facility] NEGATED: Highlighted row [facility] Medical Equipment Procedure Code Equipment Code Equipment Origin al Text Equipment Identifier Dates Robot-assisted simple nephrectomy 45mm Vascular Reload FDA Start: 03-30-2022 Robot-assisted simple nephrectomy 45mm Vascular Reload FDA Start: 03-30-2022 Robot-assisted simple nephrectomy CLIP,ALPHONSE PISANO FDA Start: 03-30-2022 Robot-assisted simple nephrectomy CLIP,HEMRUTH PISANO FDA Start: 03-30-2022 Robot-assisted simple nephrectomy Ligation clip, synthetic polymer, non-bioabsorbable [id number] FDA Start: 03-30-2022 Robot-assisted simple nephrectomy 45mm Vascular Reload FDA Start: 03-30-2022 Robot-assisted simple nephrectomy 45mm Vascular Reload FDA Start: 03-30-2022 Robot-assisted simple nephrectomy CLIP,ALPHONSE PISANO FDA Start: 03-30-2022 Robot-assisted simple nephrectomy CLIP,ALPHONSE PISANO FDA Start: 03-30-2022 Robot-assisted simple nephrectomy 45mm Vascular Reload FDA Start: 03-30-2022 Robot-assisted simple nephrectomy 45mm Vascular Reload FDA Start: 03-30-2022 Robot-assisted simple nephrectomy CLIP,ALPHONSE PISANO FDA Start: 03-30-2022 Robot-assisted simple nephrectomy CLIP,HEMRUTH PISANO FDA Start: 03-30-2022 Robot-assisted simple nephrectomy 45mm Vascular Reload FDA Start: 03-30-2022 Robot-assisted simple nephrectomy 45mm Vascular Reload FDA Start: 03-30-2022 Robot-assisted simple nephrectomy CLIP,HEMOLOAB PISANO FDA Start: 03-30-2022 Robot-assisted simple nephrectomy CLIP,HEMRUTH PISANO FDA Start: 03-30-2022 Robot-assisted simple nephrectomy 45mm Vascular Reload FDA Start: 03-30-2022 Robot-assisted simple nephrectomy 45mm Vascular Reload FDA Start: 03-30-2022 Robot-assisted simple nephrectomy CLIP,HEMRUTH PISANO FDA Start: 03-30-2022 Robot-assisted simple nephrectomy CLIP,HEMRUTH PISANO FDA Start: 03-30-2022 Robot-assisted simple nephrectomy 45mm Vascular Reload FDA Start: 03-30-2022 Robot-assisted simple nephrectomy 45mm Vascular Reload FDA Start: 03-30-2022 Robot-assisted simple nephrectomy CLIP,HEMOLOCK LG CLOTILDECK FDA Start: 03-30-2022 Robot-assisted simple nephrectomy CLIP,HEMOLOCK LG WECK FDA Start: 03-30-2022 Robot-assisted simple nephrectomy 45mm Vascular Reload FDA Start: 03-30-2022 Robot-assisted simple nephrectomy 45mm Vascular Reload FDA Start: 03-30-2022 Robot-assisted simple nephrectomy CLIP,HEMOLOCK LG WECK FDA Start: 03-30-2022 Robot-assisted simple nephrectomy CLIP,HEMOLOCK LG WECK FDA Start: 03-30-2022 Robot-assisted simple nephrectomy 45mm Vascular Reload FDA Start: 03-30-2022 Robot-assisted simple nephrectomy 45mm Vascular Reload FDA Start: 03-30-2022 Robot-assisted simple nephrectomy CLIP,HEMOLOCK LG CLOTILDECK FDA Start: 03-30-2022 Robot-assisted simple nephrectomy CLIP,HEMOLOAB LG CLOTILDECK FDA Start: 03-30-2022 Robot-assisted simple nephrectomy 45mm Vascular Reload FDA Start: 03-30-2022 Robot-assisted simple nephrectomy 45mm Vascular Reload FDA Start: 03-30-2022 Robot-assisted simple nephrectomy CLIP,HEMOLOCK FRANCISCO PISANO FDA Start: 03-30-2022 Robot-assisted simple nephrectomy CLIP,HEMOLOCK LG WECK FDA Start: 03-30-2022 Robot-assisted simple nephrectomy 45mm Vascular Reload FDA Start: 03-30-2022 Robot-assisted simple nephrectomy 45mm Vascular Reload FDA Start: 03-30-2022 Robot-assisted simple nephrectomy CLIP,HEMOLOCK LG CLOTILDECK FDA Start: 03-30-2022 Robot-assisted simple nephrectomy CLIP,HEMOLOCK LG WECK FDA Start: 03-30-2022 Robot-assisted simple nephrectomy 45mm Vascular Reload FDA Start: 03-30-2022 Robot-assisted simple nephrectomy 45mm Vascular Reload FDA Start: 03-30-2022 Robot-assisted simple nephrectomy CLIP,HEMOLOCK LG WECK FDA Start: 03-30-2022 Robot-assisted simple nephrectomy CLIP,HEMOLOCK LG CLOTILDECK FDA Start: 03-30-2022 Robot-assisted simple nephrectomy 45mm Vascular Reload FDA Start: 03-30-2022 Robot-assisted simple nephrectomy 45mm Vascular Reload FDA Start: 03-30-2022 Robot-assisted simple nephrectomy CLIP,HEMOLOCK LG CLOTILDECK FDA Start: 03-30-2022 Robot-assisted simple nephrectomy CLIP,HEMOLOCK LG WECK FDA Start: 03-30-2022 Robot-assisted simple nephrectomy 45mm Vascular Reload FDA Start: 03-30-2022 Robot-assisted simple nephrectomy 45mm Vascular Reload FDA Start: 03-30-2022 Robot-assisted simple nephrectomy CLIP,HEMOLOCK LG WECK FDA Start: 03-30-2022 Robot-assisted simple nephrectomy CLIP,HEMOLOCK LG WECK FDA Start: 03-30-2022 Robot-assisted simple nephrectomy 45mm Vascular Reload FDA Start: 03-30-2022 Robot-assisted simple nephrectomy 45mm Vascular Reload FDA Start: 03-30-2022 Robot-assisted simple nephrectomy CLIP,HEMOLOAB LG ALIYA FDA Start: 03-30-2022 Robot-assisted simple nephrectomy CLIP,HEMOLOAB PISANO FDA Start: 03-30-2022 Robot-assisted simple nephrectomy 45mm Vascular Reload FDA Start: 03-30-2022 Robot-assisted simple nephrectomy 45mm Vascular Reload FDA Start: 03-30-2022 Robot-assisted simple nephrectomy CLIP,HEMOLOCK FRANCISCO PISANO FDA Start: 03-30-2022 Robot-assisted simple nephrectomy CLIP,HEMOLOCK LG CLOTILDECK FDA Start: 03-30-2022 Robot-assisted simple nephrectomy 45mm Vascular Reload FDA Start: 03-30-2022 Robot-assisted simple nephrectomy 45mm Vascular Reload FDA Start: 03-30-2022 Robot-assisted simple nephrectomy CLIP,HEMOLOCK LG ALIYA FDA Start: 03-30-2022 Robot-assisted simple nephrectomy CLIP,HEMOLOCK LG CLOTILDECK FDA Start: 03-30-2022 Robot-assisted simple nephrectomy 45mm Vascular Reload FDA Start: 03-30-2022 Robot-assisted simple nephrectomy 45mm Vascular Reload FDA Start: 03-30-2022 Robot-assisted simple nephrectomy CLIP,HEMOLOCK LG CLOTILDECK FDA Start: 03-30-2022 Robot-assisted simple nephrectomy CLIP,HEMOLOCK LG CLOTILDECK FDA Start: 03-30-2022 Robot-assisted simple nephrectomy 45mm Vascular Reload FDA Start: 03-30-2022 Robot-assisted simple nephrectomy 45mm Vascular Reload FDA Start: 03-30-2022 Robot-assisted simple nephrectomy CLIP,HEMOLOCK LG CLOTILDECK FDA Start: 03-30-2022 Robot-assisted simple nephrectomy CLIP,HEMOLOCK LG WECK FDA Start: 03-30-2022 Robot-assisted simple nephrectomy 45mm Vascular Reload FDA Start: 03-30-2022 Robot-assisted simple nephrectomy 45mm Vascular Reload FDA Start: 03-30-2022 Robot-assisted simple nephrectomy CLIP,HEMOLOAB LG CLOTILDECK FDA Start: 03-30-2022 Robot-assisted simple nephrectomy CLIP,HEMOLOCK LG WECK FDA Start: 03-30-2022 Robot-assisted simple nephrectomy 45mm Vascular Reload FDA Start: 03-30-2022 Robot-assisted simple nephrectomy 45mm Vascular Reload FDA Start: 03-30-2022 Robot-assisted simple nephrectomy CLIP,HEMOLOAB PISANO FDA Start: 03-30-2022 Robot-assisted simple nephrectomy CLIP,HEMOLOAB PISANO FDA Start: 03-30-2022 Robot-assisted simple nephrectomy 45mm Vascular Reload FDA Start: 03-30-2022 Robot-assisted simple nephrectomy 45mm Vascular Reload FDA Start: 03-30-2022 Robot-assisted simple nephrectomy CLIP,HEMOLOAB PISANO FDA Start: 03-30-2022 Robot-assisted simple nephrectomy CLIP,HEMOLOAB PISANO FDA Start: 03-30-2022 Robot-assisted simple nephrectomy 45mm Vascular Reload FDA Start: 03-30-2022 Robot-assisted simple nephrectomy 45mm Vascular Reload FDA Start: 03-30-2022 Robot-assisted simple nephrectomy CLIP,HEMOLOAB PISANO FDA Start: 03-30-2022 Robot-assisted simple nephrectomy CLIP,HEMOLOCK LG ALIYA FDA Start: 03-30-2022 Robot-assisted simple nephrectomy 45mm Vascular Reload FDA Start: 03-30-2022 Robot-assisted simple nephrectomy 45mm Vascular Reload FDA Start: 03-30-2022 Robot-assisted simple nephrectomy CLIP,HEMOLOCK LG ALIYA FDA Start: 03-30-2022 Robot-assisted simple nephrectomy CLIP,HEMOLOCK LG ALIYA FDA Start: 03-30-2022 Robot-assisted simple nephrectomy 45mm Vascular Reload FDA Start: 03-30-2022 Robot-assisted simple nephrectomy 45mm Vascular Reload FDA Start: 03-30-2022 Robot-assisted simple nephrectomy CLIP,ALPHONSE PISANO FDA Start: 03-30-2022 Robot-assisted simple nephrectomy CLIP,ALPHONSE PISANO FDA Start: 03-30-2022 Robot-assisted simple nephrectomy 45mm Vascular Reload FDA Start: 03-30-2022 Robot-assisted simple nephrectomy 45mm Vascular Reload FDA Start: 03-30-2022 Robot-assisted simple nephrectomy CLIP,ALPHONSE PISANO FDA Start: 03-30-2022 Robot-assisted simple nephrectomy CLIP,ALPHONSE PISANO FDA Start: 03-30-2022 Plate Lcp Stainless Steel [id number] Bone 7 Hole 1/3 Tubular Collar Small - [id number] Start: 04-07-2020 Screw Lc-Dcp Dcp 3.5mm 6mm Full Thread Stainless Steel 50mm Bone Self - [id number] Start: 04-07-2020 Screw Lcp 3.5mm Full Thread Stainless Steel 12mm Bone Stardrive Recess Self - [id number] Start: 04-07-2020 Screw Lc-Dcp Dcp 3.5mm 6mm Full Thread Stainless Steel 14mm Bone Self Tap - [id number] Start: 04-07-2020 Screw Lcp Dcp 2.7mm Stainless Steel 22mm Bone Self Tapping Mini/Small - [id number] Start: 04-07-2020 Goals Date Patient Goal Desired Activity /State Functional Status Date Assessment Result Facility 04-13-2023 Functional status Up ad greg;Bath room Privilege [facility] Work Phone: 04-12-2023 Functional status Ambulates;Up ad greg [facility] Work Phone: 04-02-2022 Functional status Ambulates [facility] Work Phone: 02-24-2022 Functional status Ambulates [facility] Work Phone: 02-15-2022 Functional status Ambulates [facility] Work Phone: 02-11-2022 Functional status Ambulates [facility] Work Phone: 02-02-2022 Functional status Activity Abili ty Independent [facility] Work Phone: 02-01-2022 Functional status Up ad greg;Chair [facility] Work Phone: 04-10-2020 Are you deaf, or do you have serious difficulty hearing No 04/10/2020 10:03 PM Mickey Warner, [place] No [facility] 04-10-2020 Are you blind, or do you have serious difficulty seeing, even when wearing glasses No 04/10/2020 10:03 PM Mickey Warner, [place] No [facility] [facility] Do you have serious difficulty walking or climbing stairs Yes 04/10/2020 10:03 PM Mickey Warner, [place] Yes [facility] 04-10-2020 Do you have difficul ty dressing or bathing Yes 04/10/2020 10:03 PM Mickey Warner, [place] Yes [facility] 04-10-2020 Because of a physica l, mental, or emotional condition, do you have difficulty doing errands alone such as visiting a physician's office or shopping No 04/10/2020 10:03 PM Mickey Warner, [place] No [facility] Mental Status Date Assessment Result Facility 04-13-2023 Cognitive function Voice/Name [facility] Work Phone: 04-02-2022 Cognitive function Voice/Name [facility] Work Phone: 02-24-2022 Cognitive function Voice/Name [facility] Work Phone: 02-21-2022 Cognitive function Appropriate;[facility] Work Phone: 02-15-2022 Cognitive function Voice/Name [facility] Work Phone: 02-14-2022 Cognitive function Appropriate;[facility] Work Phone: 02-11-2022 Cognitive function Level Of Cons ciousness Sedated [facility] Work Phone: 09-30-2022 Cognitive function Voice/Name [facility] Work Phone: 02-11-2022 Cognitive function Voice/Name [facility] Work Phone: 02-10-2022 Cognitive function Appropriate;Cooperativ e [facility] Work Phone: 02-09-2022 Cognitive function Level Of Cons ciousness Awake;Alert;Appropriate;Fol lows Commands;Drowsy [facility] Work Phone: 02-04-2022 Cognitive function Level Of Cons ciousness Awake;Alert;Appropriate;Fol lows Commands [facility] Work Phone: 02-02-2022 Cognitive function Voice/Name [facility] Work Phone: 01-31-2022 Cognitive function Level Of Cons ciousness Awake;Alert;Appropriate;Fol lows Commands [facility] Work Phone: 04-10-2020 Because of a physica l, mental, or emotional condition, do you have serious difficulty concentrating, remembering, or making decisions No 04/10/2020 10:03 PM EST Mickey Rain RN No [facility] Clinical Notes 09-09-2003 to 11-18-2024 Patient InstructionsViri Campos APRN.[facility] - 11/18/2024 2:30 PM EDT Note Date & Type Note Facility 11-18-2024 Instructions Viri Campos APRN.[facility] - 11/18/2024 2:51 PM EDT Images from the original note were not included. Miralax/Dulcolax Bowel Prep For this bowel preparation you will need to pickers material handlers the following medications at any pharmacy. Four (4) Dulcolax tablets (generic name Bisacodyl) 238 Gram (or 8.3 oz.) Bottle of Miralax (Generic name Polyethylene Glycol) A responsible family member or friend MUST be available to drive you home after your procedure. You are NOT ALLOWED to drive, take a taxi, or leave the [facility] Center ALONE. If you do NOT have a responsible funeral limousine driver (family member or friend) to take you home, your exam cannot be done with sedation and WILL BE cancelled. Please remove all jewelry if possible. The [facility] or [facility] (depending on where your procedure is scheduled) will call you THE DAY BEFORE YOUR PROCEDURE with your arrival time. The time in My Chart is just an estimate. Please arrive at the time you are told the day before. Medication BLOOD THINNERS - Blood thinner medication may need to be stopped or adjusted before your colonoscopy, such as Coumadin, Plavix, Paradaxa and Eliquis. - Contact prescribing physician regarding holding any blood thinner medication. If you were seen in the general surgery office, please follow their instructions as to if and when to hold any blood thinners. If you are having this procedure done by the request of any other providers and were NOT seen in our office, please contact your physician's office to see if you need to hold any medication prior to your procedure. INSULIN and/or DIABETIC MEDICATION -Please call the doctor that monitors your glucose levels. Your insulin dosage needs to be adjusted due to the diet restrictions required with this bowl preparation (please bring your diabetic medication with you on the day of your procedure). If you are on any of the listed medications below, please follow the instructions as to when to stop your medications. If you have any questions or concerns regarding your diabetic medication, please contact your ordering providers office. Failure to hold the medications below could lead to the cancellation of your procedure. Diabetic Medication Day Prior to Surgery Day of Surgery Communication Oral hypoglycemics (except SGLT2 inhibitors) Continue Hold all on DOS Nurse verifies patient did not take oral medications. Blood glucose checked in preoperative area SGLT2 inhibitors Canagliflozin (Invokana) Dapagliflozin (Farxiga) Empaglifozin (Jardiance) Hold 3 days preoperatively Hold Nurse verifies patient has not taken the medication 3 days preoperatively and has held DOS. Blood glucose check on arrival. SGLT2 inhibitor Ertugliflozin (Steglatro) Hold 4 days preoperatively Hold Nurse verifies patient has not taken the medication 4 days preoperatively and has held DOS. Blood glucose check on arrival. Non-insulin injectables (Except GLP-1 agonists) Take normal dose Hold all Nurse verifies patient has held. Blood glucose check on arrival GLP-1 Agonists (Injected) Semaglutide (Ozempic/Wegovy) Lixisenatide (Adlyxin) Tirzepatide (Mounjaro/Zepbound) Dulaglutide (Trulicity) Hold the week prior to surgery Hold Nurse verifies time of last dose and documents. Assess for symptoms of satiety or nausea. If patient took the week prior to surgery or on DOS, contact the anesthesiologist. GLP-1 Agonists (Daily Injected) Exenatide (Bydureon/ Byetta) Liraglutide (Victoza/Saxenda) Insulin glargine / lixisenatide (Soliqua) Continue Hold on DOS GLP-1 Agonists (oral) Semaglutide (Reybelsus) Continue Hold on DOS Nurse verifies time of last dose and documents. Assess for symptoms of satiety or nausea. If patient took DOS, contact the anesthesiologist. Insulin pump Follow protocol Follow protocol Nurse verifies settings. Blood glucose check on arrival Long- or intermediate-acting insulin (Levemir, Lantus, NPH etc.) Take 75% of normal dose the night before surgery if possible Check fasting AM glucose. If 200 or greater, take half the prescribed dose. If under 200, hold AM dose. Nurse verifies dose and time. Blood glucose check on arrival. If you take GLP-1 agonists such as semaglutide (Ozempic, Wegovy, Rybelsus), dulaglutide (Trulicity), liraglutide (Victoza, Saxenda), exenatide (Byetta, Bydureon), or lixisenatide (Adylyxin), tirzepatide (MOUNJARO). if you take medication once or twice daily, do not take your medication for 1 day prior to your procedure if you take these medications weekly, do not take your medication the week ( hold the prior week's dose) before your procedure If you take aspirin, take it and ALL other medication prescribed by your doctor unless told otherwise by either the physician's office or Pre-Admission testing if having procedure done in a hospital setting (PACC) with a small sip of water only. You may take over the counter medications if you have a headache. TAKE ALL BLOOD PRESSURE MEDICATION THE MORNING OF THE PROCEDURE. Failure to take usual morning blood pressure meds may result in cancellation of the procedure if hypertensive. Hold erectile dysfunction medications for 48 hrs. prior to the procedure. Five (5) days before your colonoscopy Do not take medications that stop Diarrhea - Imodium, Kaopectate, or Pepto Bismol Do NOT take fiber supplements - Metamucil, Citrucel, FiberCon Do NOT take products that contain iron (check vitamin label) Two (2) to three (3) days before your colonoscopy DO NOT EAT HIGH FIBER FOODS No beans, seeds (flax, sunflower, quinoa), nuts, popcorn, multigrain bread salad/vegetables, or fresh and dried fruit. Do not eat red meat 3 days before your procedure. YOU MAY EAT Lean Chicken breast, fish, eggs, and soup YOU MUST BE ON CLEAR LIQUIDS FOR 2 FULL DAYS PRIOR TO PROCEDURE Two (2) Days before your colonoscopy ONLY DRINK CLEAR LIQUIDS for 2 DAYs BEFORE YOUR COLONOSCOPY. DO NOT EAT ANY SOLID FOODS. Drink at least eight (8) ounces of clear liquids every hour after waking up. Clear fluids include: Water, apple juice, white grape juice, broth (beef, chicken or vegetable), coffee and/or tea (NO DAIRY, MILK OR CREAMER) clear carbonated beverages (sprite, 7-up, emily-abdiel), Gatorade, or other sport drinks, Agustin-Aid, Jell-O, Gummy Bears and popsicles. NOTHING RED IN COLOR. DO NOT DRINK ALCOHOL the day before or the day of your procedure. DAY 1 (2 days before your colonoscopy) Clear Liquids all day, you may have water, coffee or tea- NO DAIRY, Clear broth (Beef, Chicken or vegetable) Clear carbonated beverages, apple juice, white grape juice , Gatorade, Jell-O, Agustin-Aid, and popsicles. NO DAIRY, TOMATO, OR ORANGE JUICE. NO RED OR PURPLE! DAY 2 - (day before your colonoscopy) SAME DAY 1, Continue clear fluids and then follow the instructions below~ 8:00 AM - May Mix the Miralax prep with 64 oz. of Gatorade or any of the clear fluids listed above and place in fridge. 1:00 PM - Take 2 Dulcolax Tablets with 8oz of water 3:00 PM - Start to drink the Miralax mixture. - Finish by midnight 4:00 PM - Take 2 Dulcolax tablets with 8oz of water. You may continue to drink clear liquids while you are taking your prep and after you finish as long as it is before midnight. Drink lots of fluids so you don't become dehydrated. Nothing to drink after midnight unless instructed otherwise by nursing staff and/or physician. Please remember to take your normal medications the morning of your procedure with a small sip of water especially your blood pressure medications. If you are diabetic, you need to contact your physicians regarding how to take your diabetic medications and/or insulin during the prepping period and the day of the procedure. The times above are a general guide. You may change the times if needed to accommodate your schedule. Example, instead of taking your first step at 1 PM you may take your first step at 6 PM. Your time frames would be: 6 PM take 2 Dulcolax tablets, at 8 PM you would start drinking the Miralax mixture and at 9 PM you would take two more Dulcolax tablets. Any questions please call [phone] or [phone] and ask for the general surgery nurses. What is a colonoscopy? A colonoscopy is an outpatient procedure in which the inside of the large intestine (colon and rectum) is examined. A colonoscopy is commonly used to evaluate gastrointestinal symptoms, such as rectal and intestinal bleeding, abdominal pain, or change in bowel habits. Colonoscopies are also performed in individuals without symptoms to check for colorectal polyps or cancer. A screening colonoscopy is recommended for anyone 50 years of age or older, and for anyone with parents, siblings, or children with a history of colorectal cancer or polyps. What happens before a colonoscopy? To have a successful colonoscopy, your bowel must be empty so that your physician can clearly view the colon. To do this, it is very important to read and follow all of the instructions given to you at least 2 weeks BEFORE your exam. If your bowel is not empty, your colonoscopy will not be successful and may have to be repeated. If you feel nauseated or vomit while taking the bowel preparation, wait 30 minutes before drinking more fluid and start with small sips of solution. Some activity (such as walking) may help decrease the nausea you are feeling. If the nausea persist, please contact the office at [phone] and ask for the provider's office that scheduled your colonoscopy or nurse transplant surgeon at [phone]. You may experience skin irritation around the anus due to the passage of liquid stool. To prevent and treat skin irritation you should: Apply Vaseline or Desitin ointment to the skin around the anus before drinking the bowel preparation medications. These products can be purchased at any drugstore. Wipe the skin after each bowel movement with disposable wet wipes instead of toilet paper. These are found in the toilet paper area of the store. Sit in a bathtub filled with warm water for 10-15 minutes after you finish passing a stool; after soaking blot the skin dry with a soft cloth, apply Vaseline or Desitin ointment to the anal area, and place a cotton ball just outside your anus to absorb any leaking fluid. What happens during a Colonoscopy? During a colonoscopy, an experienced physician uses a colonoscope (a long, flexible instrument about inch in diameter) to view the lining of the colon, the colonscope is inserted into the rectum and advanced through the large intestine. If necessary during a colonoscopy, small amounts of tissue can be removed for analysis (biopsy) and polyps can be identifies and entirely removed. In many cases, a colonoscopy allows accurate diagnosis and treatment of colorectal problems without the need for a major operation. You are asked to wear a hospital gown and an IV will be started You are given a pain reliever and sedative intravenously (in your vein). You will feel relaxed and somewhat drowsy You will lie on your left side, with your knees drawn up towards your chest A small amount of air is used to expand the colon so the physicians can see the colon ramirez. You may feel mild cramping during the procedure. Cramping can be reduced by taking slow, deep breaths. The colonoscope is slowly withdrawn while the lining of your bowel is carefully examined. The procedure last from approximately 30-60 min. What happens after a Colonoscopy? You will stay in a recovery room for observation until you are ready for discharge You may feel some cramping and/or a sensation of having gas, but this quickly passes If sedation has been given, a responsible family member or friend MUST drive you home. Avoid alcohol, driving and operating machinery for 24 hrs. following the procedure. Unless otherwise instructed, you may immediately return to your normal diet. We recommend you wait until the day after your procedure to resume normal activities. If Polyps were removed or a biopsy was taken, the physicians performing the colonoscopy will tell you when it is safe to resume taking your blood thinners. If a biopsy was taken or if a polyp was removed, you will notice a little amount of rectal bleeding for 1-2 days after the procedure. If you have a large amount of rectal bleeding, high or persistent fever, or severe abdominal pain within the next 2 weeks, please go to your local emergency room and call the physician who performed your exam. documented in this encounter [facility] 11-18-2024 History of Present illness Narrative HISTORY AND PHYSICAL Gabriela Ramon : 1940 REFERRING PHYSICIAN: Stephanie Partida [address] [facility] [id number] CHIEF COMPLAINT: Patient presents with: Follow Up HPI: Gabriela is a 84 year old female referred for endoscopy. Gabriela notes due for repeat colonoscopy. Gabriela denies abdominal pain. Gabriela notes diarrhea. -for the last couple of months Gabriela denies constipation. Gabriela denies a change in bowel habits. Gabriela denies melena. Gabriela denies bright red blood per rectum. Gabriela denies hemorrhoids. Gabriela denies family history of colon issues. Gabriela denies heartburn. Gabriela denies dysphagia. Gabriela denies a history of ulcers/ peptic ulcer disease. Gabriela notes upper abdominal pain -worse in the mornings -been on omeprazole for years but not helping with the pain Gabriela notes decreased appetite and minimal weight loss -some nausea, denies vomiting Gabriela's medical history is significant for HTN, osteoporosis and obesity. She denies CP, SOB, dizziness, palpitations, syncope, edema, recent hospitalizations Gabriela has undergone prior endoscopy. Last colonoscopy was 05/[address] Hester at [facility]. Sedation: MAC Impression: - One 40 mm polyp in the cecum, removed with endoscopic submucosal dissection. Resected and retrieved. Clips (MR safe) were placed. - One 5 mm polyp in the proximal ascending colon, removed with a hot snare. Resected and retrieved. - Endoscopic submucosal dissection was performed. Resection and retrieval were complete FINAL DIAGNOSIS A. Ascending colon polyp, biopsy: - Tubular adenoma. B. Cecal polyp, endoscopic mucosal resection: - Tubular adenoma. - Lateral cauterized margins free of adenoma. - No evidence of invasive carcinoma. BARRETT/kr 06/12/2024 Current Outpatient Medications Medication Sig cholecalciferol (VITAMIN D-3) 5,000 unit tab Take 5,000 Units by mouth once daily. metoprolol succinate ER (TOPROL XL) 50 mg 24 hr tablet Take 50 mg by mouth once daily. ZINC ACETATE ORAL Take 1 tablet by mouth once daily. HYDROcodone-acetaminophen 2.5-325 mg tab Take 1 tablet by mouth every 6 hours as needed for pain. furosemide (LASIX) 40 mg tablet Take 40 mg by mouth two times a day. (Patient taking differently: Take 40 mg by mouth once daily.) Cephalexin 250 mg tab Take 250 mg by mouth once daily. POTASSIUM-99 ORAL Take 1 tablet by mouth once daily. omeprazole (PRILOSEC) 20 mg capsule Take 1 capsule by mouth once daily. mecobalamin (B12 ACTIVE ORAL) Take by mouth once daily. isosorbide mononitrate ER (IMDUR) 60 mg 24 hr tablet Take 1 tablet by mouth once daily. simvastatin (ZOCOR) 20 mg tablet Take 1 tablet by mouth daily at bedtime. hydroCHLOROthiazide (HYDRODIURIL, ESIDRIX) 25 mg tablet Take 1 tablet by mouth once daily. Benazepril HCl 40 mg tablet Take 1 tablet by mouth once daily. amLODIPine (NORVASC) 10 mg tablet Take 1 tablet by mouth once daily. baclofen (LIORESAL) 10 mg tablet Take 10 mg by mouth twice daily as needed (muscle spasms). TAKE 0.5-1 TABLET BID PRN FOR SPASMS No current facility-administered medications for this visit. ALLERGIES: Patient has no known allergies. PAST MEDICAL HISTORY Diagnosis Date Arthritis Cancer (HCC) skin Coronary atherosclerosis of unspecified type of vessel, [place] or graft Coronary artery disease Diverticulosis of colon (without mention of hemorrhage) Inguinal hernia Mixed hyperlipidemia Hyperlipidemia Osteoporosis, unspecified Osteoporosis PMH - PAST MEDICAL HISTORY OF 1945 Osteomyelitis Umbilical hernia Unspecified essential hypertension Essential hypertension Urinary calculus, unspecified Renal stones PAST SURGICAL HISTORY Procedure Laterality Date COLONOSCOPY 11/21/2023 COLONOSCOPY - DIAGNOSTIC 08/06/2020 COLONOSCOPY FLX DX W/COLLJ SPEC WHEN PFRMD 12/23/2008 Colonoscopy EGD 08/06/2020 EGD 11/21/2023 EYE SURGERY HX FRACTURE SURGERY Bilateral ankles HERNIA REPAIR HX LAPAROSCOPY SURG RPR INITIAL INGUINAL HERNIA 01/23/2012 NEUROPLASTY &/TRANSPOS MEDIAN NRV CARPAL TUNNE 05/15/2005 Carpal tunnel decomp left NEUROPLASTY &/TRANSPOS MEDIAN NRV CARPAL TUNNE 05/15/2006 Carpal tunnel decomp right ORTHOPEDIC SURGERY HX Left 04/07/2020 L Ankle Sx PAST SURGICAL HISTORY OF 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 PERC TRANSL COR ANGIO 05/15/2003 Percutaneous Transluminal Coronary Angio Status RPR UMBILICAL HRNA 5 YRS/> REDUCIBLE 01/23/2012 SIGMOIDOSCOPY FLX DX W/COLLJ SPEC BR/WA IF PFRMD Sigmoidoscopy, flexible SKIN BIOPSY HX XCAPSL CTRC RMVL INSJ IO LENS PROSTH W/O ECP Bilateral 05/15/2014 Cataract Extraction with PC IOL FAMILY HISTORY Problem Relation Age of Onset Cancer Father Lung other (skin ca) Brother Social History Tobacco Use Smoking status: Former Current packs/day: 0.00 Average packs/day: 1 pack/day for 3.0 years (3.0 ttl pk-yrs) Types: Cigarettes Start date: 05/15/1988 Quit date: 05/15/1991 Years since quittin.5 Smokeless tobacco: Never Vaping Use Vaping status: Never Used Substance Use Topics Alcohol use: Yes Comment: RARELY Drug use: Never PHYSICAL EXAMINATION: General: The patient is 84 year old, female well nourished, well hydrated in no acute distress. The patient is oriented to time, place, and person. VITALS: Blood pressure 110/64, pulse 84, temperature 37.1 C (98.8 F), temperature source Temporal, resp. rate 14, height 153.8 cm (5' 0.55), weight 64 kg (141 lb), SpO2 96%. Body mass index is 27.04 kg/m . HEENT: Normal cephalic, ataumatic, pupils are equally round, sclera are anicteric, mucous membranes are moist, oropharynx is clear. Neck has no masses or asymmetry . Respiratory: Clear to auscultation. Cardiac: Regular rate and rhythm. Abdominal exam: Soft, nontender, with no palpable masses. No hepatosplenomegaly. No palpable hernias. Extremities: no clubbing or cyanosis LABORATORY VALUES: As Noted RADIOLOGIC STUDIES: As Noted Assessment IMPRESSION: screen for colon cancer, history of colon polyps, decreased appetite, upper abdominal pain, nausea PLAN: I have reviewed my findings with the surgeon. Will plan for upper and lower endoscopy. We discussed the risks and benefits of the planned endoscopy in terms understandable to the patient. I have informed the patient that complications can occur including failure to complete the endoscopy and perforation. Gabriela had the opportunity to ask questions concerning the planned endoscopy. Gabriela freely consents to surgery. I plan to use miraLAX bowel preparation I have explained to the patient the difference between IV conscious sedation and MAC anesthesia - and I have offered either, according to the patient's wishes. I have explained that with IV conscious sedation there is no anesthesia provider available and therefore there is a limitation of the amount of IV medications that can be given and that the patient may wake up in the middle of the procedure and/or experience pain/discomfort during the procedure. Further discussion was done and the patient was given the opportunity to ask questions and all questions were answered. Gabriela chooses IV conscious sedation. Gabriela was counseled that if there are changes in his/her medical condition, to let the office know if surgery should proceed. If there are changes in patient's medical condition from time of this encounter to the day of the procedure that preclude anesthesia, patient may have procedure cancelled for patient's safety. Diagnoses: (R63.0) Decreased appetite (primary encounter diagnosis) (R10.11, R10.12) Bilateral upper abdominal pain (R11.0) Nausea (Z12.11) Screen for colon cancer (Z86.0100) History of colonic polyps Portions of this documentation were copied and pasted from previous office visit notes in order to provide a cohesive continuity of the history. The note has been reviewed and edited and updated as necessary. Viri Campos APRN.JAXON documented in this encounter [facility] 11-18-2024 Note HNO ID: [id number] Author: VIRI CAMPOS APRN.CNP Service: ? Author Type: Nurse Practitioner Type: Progress Notes Filed: 11/18/2024 15:51 Note Text: HISTORY AND PHYSICAL Gabriela Ramon : 1940 REFERRING PHYSICIAN: Stephanie Partida [id number] [facility] [address] [facility] [id number] CHIEF COMPLAINT: Patient presents with: Follow Up HPI: Gabriela is a 84 year old female referred for endoscopy. Gabriela notes due for repeat colonoscopy. Gabriela denies abdominal pain. Gabriela notes diarrhea. -for the last couple of months Gabriela denies constipation. Gabriela denies a change in bowel habits. Gabriela denies melena. Gabriela denies bright red blood per rectum. Gabriela denies hemorrhoids. Gabriela denies family history of colon issues. Gabriela denies heartburn. Gabriela denies dysphagia. Gabriela denies a history of ulcers/ peptic ulcer disease. Gabriela notes upper abdominal pain -worse in the mornings -been on omeprazole for years but not helping with the pain Gabriela notes decreased appetite and minimal weight loss -some nausea, denies vomiting Gabriela's medical history is significant for HTN, osteoporosis and obesity. She denies CP, SOB, dizziness, palpitations, syncope, edema, recent hospitalizations Gabriela has undergone prior endoscopy. Last colonoscopy was 05/[address] Hester at [facility]. Sedation: MAC Impression: - One 40 mm polyp in the cecum, removed with endoscopic submucosal dissection. Resected and retrieved. Clips (MR safe) were placed. - One 5 mm polyp in the proximal ascending colon, removed with a hot snare. Resected and retrieved. - Endoscopic submucosal dissection was performed. Resection and retrieval were complete FINAL DIAGNOSIS A. Ascending colon polyp, biopsy: - Tubular adenoma. B. Cecal polyp, endoscopic mucosal resection: - Tubular adenoma. - Lateral cauterized margins free of adenoma. - No evidence of invasive carcinoma. BARRETT/loki 06/12/2024 Current Outpatient Medications Medication Sig cholecalciferol (VITAMIN D-3) 5,000 unit tab Take 5,000 Units by mouth once daily. metoprolol succinate ER (TOPROL XL) 50 mg 24 hr tablet Take 50 mg by mouth once daily. ZINC ACETATE ORAL Take 1 tablet by mouth once daily. HYDROcodone-acetaminophen 2.5-325 mg tab Take 1 tablet by mouth every 6 hours as needed for pain. furosemide (LASIX) 40 mg tablet Take 40 mg by mouth two times a day. (Patient taking differently: Take 40 mg by mouth once daily.) Cephalexin 250 mg tab Take 250 mg by mouth once daily. POTASSIUM-99 ORAL Take 1 tablet by mouth once daily. omeprazole (PRILOSEC) 20 mg capsule Take 1 capsule by mouth once daily. mecobalamin (B12 ACTIVE ORAL) Take by mouth once daily. isosorbide mononitrate ER (IMDUR) 60 mg 24 hr tablet Take 1 tablet by mouth once daily. simvastatin (ZOCOR) 20 mg tablet Take 1 tablet by mouth daily at bedtime. hydroCHLOROthiazide (HYDRODIURIL, ESIDRIX) 25 mg tablet Take 1 tablet by mouth once daily. Benazepril HCl 40 mg tablet Take 1 tablet by mouth once daily. amLODIPine (NORVASC) 10 mg tablet Take 1 tablet by mouth once daily. baclofen (LIORESAL) 10 mg tablet Take 10 mg by mouth twice daily as needed (muscle spasms). TAKE 0.5-1 TABLET BID PRN FOR SPASMS No current facility-administered medications for this visit. ALLERGIES: Patient has no known allergies. PAST MEDICAL HISTORY Diagnosis Date Arthritis Cancer (HCC) skin Coronary atherosclerosis of unspecified type of vessel, [place] or graft Coronary artery disease Diverticulosis of colon (without mention of hemorrhage) Inguinal hernia Mixed hyperlipidemia Hyperlipidemia Osteoporosis, unspecified Osteoporosis PMH - PAST MEDICAL HISTORY OF 1945 Osteomyelitis Umbilical hernia Unspecified essential hypertension Essential hypertension Urinary calculus, unspecified Renal stones PAST SURGICAL HISTORY Procedure Laterality Date COLONOSCOPY 11/21/2023 COLONOSCOPY - DIAGNOSTIC 08/06/2020 COLONOSCOPY FLX DX W/COLLJ SPEC WHEN PFRMD 12/23/2008 Colonoscopy EGD 08/06/2020 EGD 11/21/2023 EYE SURGERY HX FRACTURE SURGERY Bilateral ankles HERNIA REPAIR HX LAPAROSCOPY SURG RPR INITIAL INGUINAL HERNIA 01/23/2012 NEUROPLASTY AND/TRANSPOS MEDIAN NRV CARPAL TUNNE 05/15/2005 Carpal tunnel decomp left NEUROPLASTY AND/TRANSPOS MEDIAN NRV CARPAL TUNNE 05/15/2006 Carpal tunnel decomp right ORTHOPEDIC SURGERY HX Left 04/07/2020 L Ankle Sx PAST SURGICAL HISTORY OF 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 [facility] 10-22-2024 Evaluation note Diagnosis Onset Date Resolution Atherosclerotic heart disease of [place] coronary artery without angina pectoris acute October 22, 2024 10:54am Essential hypertension chronic Ju 2024 10:54am Hyperlipidemia chronic October 22, 2024 10:54am [facility] Work Phone: [phone]) 397-775103-27-2025 Discharge summary [facility] Medical Records Department [address] [place] [address] Emergency Department Summary 08/08/24 MR#: [id number] Acct: [id number] Name: GABRIELA RAMON Rep #:[id number] : 1940 84 From: Leif Lewis MD PCP: Dr. Stephanie Partida, Status:REG ER Location: ED HPI HPI - GI History of Present Illness Chief Complaint: GI Bleed Detail of Chief Complaint: Rectal bleeding last several days. Informant: patient Nausea/Vomiting/Emesis GI Symptom: Negative for Nausea or Vomiting Diarrhea/Melena/Hematochezia GI Symptom: Positive for Hematochezia; Negative for Diarrhea or Melena Onset: Days Severity: Mild Associated Symptoms Associated Symptoms: Negative for Dysuria, Frequency or Hematuria Narrative Narrative: 84-year-old female history of prior DVT and kidney stones. Recent URI currentlybeing treated for bacterial bronchitis with an antibiotic and oral steroids. Said that she started having URI symptoms last Monday and then started having small clots with her bowel movements in the toilet and bright red blood when shewiped on several different days. No heavy bleeding. No hematemesis. No coffee-ground material. She is on no blood thinners. Saw her primary care physician earlier this week Dr. Lux patient states previously had a benign polyp s. Had negative COVID, RSV and influenza. Resected by the [facility] this past May. 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/2020) Atherosclerotic heart disease of [place] coronary artery without angina pectoris Essential hypertension Neck pain Knee pain, bilateral Osteoarthritis Dislocation of left ankle joint Chronic back pain Hyperlipidemia Home Medications ?Medication ?Instructions ?Recorded ?Last Taken ?Type isosorbide mononitrate 60 mg 60 mg PO DAILY chest pain 07/09/16 04/12/23 History tablet,extended release 24 hr amlodipine 10 mg tablet 10 mg PO DAILY blood pressur e 12/10/16 04/12/23 History simvastatin 20 mg tablet 20 mg PO QHS cholesterol 04/11/23 History zinc gluconate 50 mg tablet 50 mg PO DAILY [facility] 03/31/21 04/12/23 History omeprazole 20 mg capsule,delayed 20 mg PO BID gerd 01/0304/12/23 History release baclofen 10 mg tablet 10 mg PO BID PRN PRN Muscle Spasm 04/12/23 Unknown History metoprolol succinate 50 mg See Rx Instructions .Route .COMPLEX 04/12/23 Unknown History tablet,extended release 24 hr niacinamide 500 mg tablet 500 mg PO DAILY 04/12/23 Unk nown History furosemide 40 mg tablet 40 mg PO DAILY swelling #30 tabs 04/13/23 Unknown Rx potassium chloride 20 mEq 20 meq PO DAILY #30 tabs Unknown Rx tablet,extended release benazepril 40 mg tablet 20 mg PO DAILY blood pressur e 08/31/23 Unknown History calcium carbonate (Calcium 500) 500 mg PO DAILY Supple ment 08/31/23 Unknown History hydrocodone 7.5 mg-acetaminophen 1 tab PO Q6H PRN 08/13 01/05 Unknown History 325 mg tablet Allergy/AdvReac Type Severity Reaction Status Date / Time No Known Allergies Allergy Verified 08/31/23 10:07 Family History Grandmother Breast cancer Surgical History History of esophagogastroduodenoscopy (EGD) (02/11/22) 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 Bright red blood per rectum. Constitutional Constitutional ED: Denies chills or fever(s) ENT ENT ED: Denies ear pain Cardiovascular Cardiovascular: Denies chest pain Respiratory/Chest Respiratory/Chest: Reports cough Gastrointestinal Gastrointestinal: Denies abdominal pain, constipation, diarrhea, melena, nausea or vomiting Genitourinary Genitourinary ED: Denies dysuria or hematuria Integumentary Denies abscess Neurologic Neurologic: Denies headache(s) Psychiatric Psychiatric: Denies anxiety Endocrine Endocrinology: Denies polydipsia Hematologic/Lymphatic Hematologic/Lymphatic: Denies easy bleeding, easy bruising or lymphadenopathy Allergic/Immunologic Allergic/Immunologic ED: Denies mouth swelling, tongue swelling or urticaria EXAM Physical Exam Narrative Exam Narrative: 84-year-old female in no acute distress. Sitting upright in her bed. Vital signs are stable afebrile. Pulse ox 98% on room air no hypoxia. Her neighbor sitting in bedside. H EENT exam pupils round reactive light. Extra motions intact. Moist mucous membranes. Neck nontender no lymphadenopathy. Lungsdry cough. Few scattered wheezes. No rales or rhonchi. Equal symmetric. Heart regular rhythm rate about 90 no murmur. Chest wall ribs nontender. Abdomen soft nontender. Moving all 4 extremities. Nontender no edema. Normal strength. Back nontender. Neurologically she is awake alert. Rectal exam no stool. No gross blood. She has 2 small hemorrhoids externally but they are notbleeding. There is no gross blood. Hemorrhoids are nontender. Nonthrombosed. Const Vital Signs: 08/08/24 15:49 08/08/24 16:28 08/08/24 17:48 Temperature 98.3 F Temperature Source Oral Pulse Rate 91 70 Respiratory Rate 16 16 18 Respiratory Pattern Normal Blood Pressure 126/91 H 128/78 H Blood Pressure Mean 102 94 Pulse Ox 98 95 Oxygen Delivery Method Room Air Positive well nourished and well developed; Negative for cachectic, contracturesor unkempt General Appearance ED: well developed and NAD; Negative for unkempt, cachectic, contractures or pallor Nutritional Appearance: Negative for cachectic HEENT Reports moist mucous membranes normocephalic and atraumatic; Negative for trauma or tenderness Eyes PERRL and EOMs intact bilaterally General Eye ED: Negative for pale conjunctiva or scleral icterus Neck no lymphadenopathy, supple and no JVD General: Negative for tenderness Lymph Lymphatic: Negative for other Resp normal respiratory effort and No clear to auscultation bilaterally Resp Narrative: Few scattered wheezes. Dry cough. Effort and Inspection: Negative for respiratory distress Auscultation: wheezes; Negative for rales or rhonchi Cardio regular rate, regular rhythm, S1 normal heart sound, S2 normal heart sound and no murmurs Rate: Negative for bradycardia or tachycardic Rhythm: Negative for abnormal rhythm GI non-tender, non-distended and no masses GI Narrative: Rectal exam. She has small external hemorrhoids. Nontender. Nonthrombosed. Nonbleeding. No blood. Rectal no mass. No stool. No blood. No melena. Nontender. Inspection: Negative for abdominal distention Auscultation: normoactive bowel sounds Palpation: soft; Negative for tender, guarding, hernia, mass, pulsatile mass or rebound tenderness present Back/Spine no CVA tenderness General Back: Negative for CVA tenderness Cervical Spine: Negative for cervical spine tenderness Thoracic Spine / Upper Back: Negative for thoracic spinal tenderness Lumbar Spine / Lower Back: Negative for lumbar spinal tenderness Coccyx: Negative for other Extremity full ROM General Extremety ED: Negative for edema, tenderness or other findings General Extremity: Negative for edema or other findings Neuro CN's II-XII intact bilaterally and moves all extremities Sensorium / Orientation: alert, oriented to person, oriented to place and oriented to time; Negative for orientation impaired, confused or lethargic Motor Exam: strength 5/5 throughout Psych mental status grossly normal and thought process normal Appearance: Negative for unkempt Attitude: No agitated Mood & Affect: Negative for depressed, anxious or tearful Skin no wounds General Skin Exam: Negative for jaundice or pallor Lesions: no lesions Rashes: no rashes Trauma: Negative for abrasion Nails: Negative for discolored MDM MDM MDM Narrative Medical decision making narrative: 84-year-old female URI symptoms. Currently on antibiotic and steroids. Chest x- ray being obtained. To the bright red blood per rectum screening labs to be obtained a CBC and chemistry. I do not thinkshe needs to be typed and screenedby history it is not but not much bleeding. There is no obvious source. She does have external hemorrhoids but there not bleeding or tender. There is no blood on rectal exam. Nor any black stool. Repeat exam patient is doing well at 7:50 PM. I explained to her she has a stable lower GI bleed. It may be from an internal hemorrhoid or diverticulosis versus other etiologies. She stated she had abowel movement here and had no further bleeding at this time. Her blood counts are stable. She doesnot need to be admitted. She can follow-up with her primary care physician and get outpatient endoscopy if this does not resolve. She has had a recent endoscopy done in May. Patient be dischargedhome. Hemorrhoidal cream. Warm sitz bath's. Follow-up with her doctor. History & Record Review Discussion w/independent historian: Patient Additional record(s) reviewed:: Prior inpatient record, Prior outpatient record,Prior ED visit and Prior labs Lab Data Attestation: I reviewed the patient's lab results. Lab results narrative: CBC shows a white count of 7. H&H 13 and 39. Platelets 240. Electrolytes show a gap of 15. BUN and creatinine are 31 and 1.1. Glucose 150. Labs are consistent with prior. Her blood counts have not significantly changed. Labs: Laboratory Results - last 24 hr 08/08/24 16:29 WBC 7.2 RBC 4.24 Hgb 13.2 Hct 39.5 MCV 93.2 MCH 31.1 MCHC 33.4 RDW Std Deviation 45.1 H RDW Coeff of [place] 13.2 Plt Count 240 MPV 9.5 Immature Gran % (Auto) 0.700 Neut % (Auto) 85.0 H Lymph % (Auto) 10.9 L [place] % (Auto) 3.1 Eos % (Auto) 0.0 Baso % (Auto) 0.3 Absolute Neuts (auto) 6.1 Absolute Lymphs (auto) 0.78 L Nucleated RBC % 0 Sodium 140 Potassium 4.8 Chloride 109 H Carbon Dioxide 15.9 L Anion Gap 15 BUN 31 H Creatinine 1.16 Estim Creat Clear Calc 31.18 L Est GFR (MDRD) Non-Af 46 L BUN/Creatinine Ratio 26.6 H Glucose 150 H Calcium 9.3 Radiography Chest X-Ray - ED: 2 View, Read by ED Physician, Read by Radiologist, Normal, Heart, Lungs, Mediastinum, Bony Structures, No Acute Disease and Chronic Changes Diagnostic Testing: Clinical Impression(s) from Imaging Studies Chest X-Ray 08/08/24 16:45 IMPRESSION: NO ACUTE FINDINGS Reading Location: [facility] Chest x-ray, 2 views, interpreted both by myself and the radiologist. AP and lateral. Shows chronicchanges no acute process. Normal cardiac silhouette. Lung gibson are unremarkable. Discharge Plan Triage Chief Complaint: GI Bleed ED Provider: Leif Lewis Dx/Rx/DC Orders Clinical Impression: Acute lower gastrointestinal bleeding Instructions: ED Lower GI Bleeding (Stable) Prescriptions: No Action calcium carbonate [Calcium 500] 500 mg calcium (1,250 mg) tablet 500 mg PO DAILY zinc gluconate 50 mg tablet 50 mg PO DAILY omeprazole 20 mg capsule,delayed release(DR/EC) 20 mg PO BID hydrocodone-acetaminophen 7.5-325 mg tablet 1 tab PO Q6H PRN isosorbide mononitrate 60 MG tablet extended release 24 hr 60 mg PO DAILY amlodipine 10 MG tablet 10 mg PO DAILY Patient Comments: simvastatin 20 MG tablet 20 mg PO QHS benazepril 40 mg tablet 20 mg PO DAILY Patient Comments: baclofen 10 mg Tablet 10 mg PO BID PRN PRN (Reason: Muscle Spasm) metoprolol succinate 50 mg tablet extended release 24 hr See Rx Instructions .ROUTE .COMPLEX Rx Instructions: pt takes 50mg po q HS (unable to get this added into computer except under complex gibson niacinamide 500 mg tablet 500 mg PO DAILY potassium chloride 20 mEq tablet extended release 20 meq PO DAILY Qty: 30 0RF furosemide 40 mg tablet 40 mg PO DAILY Qty: 30 2RF Primary Care Provider: Stephanie Partida Referrals: Stephanie Partida DO [Primary Care Provider] - 3-5 Days if not improving Activity Restrictions/Additional Instructions: You have a stable lower GI bleed. Uncertain the cause it may be internal hemorrhoids or possibly diverticulosis versus other causes like a polyp. If this continues she will need another colonoscopy. Follow-up with your doctor. Obviously if he isget heavier bleeding or feeling lightheaded or startpassing larger clots you need to return to the emergency department. Your chest x-ray today was normal. Your blood counts were stable and or similarto where they have been in the past. There was no significant loss of blood. Print Language: Tuvaluan Disposition Disposition: Home, Self Care What to do if you have Problems For any increased pain, shortness of breath, bleeding, nausea or vomiting, chestpain, or any unexpected problems, contact your Primary Care Provider. Call [facility] ([phone]) or report tothe closest Emergency Room. Call 911 if necessary. 08/08/241958 Cosigner Signature (if applicable): CC: Dr. Stephanie Partida DO ~ Signed [facility]03-27-2025 Radiology Diagnostic study note [facility] Imaging Services [address] [place], [place] [id number] Chest PA and Lateral MR#: [id number] Acct: [id number] Name: GABRIELA RAMON Rep #: [id number] : 1940 F 84 From: Valorie Cali MD PCP: Dr. Stephanie Partida DO Status: [facility] ER Study:Chest PA and Lateral Date of Exam: 08/08/24 Exam# [id number] Ordering Dr: Jordana Lewis MD PROCEDURE: CHEST PA AND LATERAL 08/08/2024 REASON FOR EXAM: 84-year-old female, cough, GI bleed. TECHNIQUE: Single view chest with supine and upright views of the abdomen. COMPARISON: Chest radiograph 04/12/2023. FINDINGS: Hardware: None. Surgical clip overlying the right lower neck. Tiny radiopaque marker within the left breast, likely from prior breast biopsy. Heart: The heart size is normal. Lungs: No focal consolidation, pleural effusion or pneumothorax. Bones: There are degenerative changes of the spine. RAD/Chest PA and Lateral IMPRESSION: NO ACUTE FINDINGS Reading Location: [facility] CC: Dr. Leif Lewis MD; Dr. Stephanie Partida DO ~ Esthetics Instructor: Signed [facility]03-27-2025 Discharge summary Author Leif Lewis [facility] Note Date/Time August 08, 2024 7:5 9pm [facility] Medical Records Department [address] [place] [address] Emergency Department Summary 08/08/24 MR#: [id number] Acct: [id number] Name: GABRIELA RAMON Rep #:[id number] : 1940 84 From: Leif Lewis MD PCP: Dr. Stephanie Partida DO Status:REG ER Location: ED HPI HPI - GI History of Present Illness Chief Complaint: GI Bleed Detail of Chief Complaint: Rectal bleeding last several days. Informant: patient Nausea/Vomiting/Emesis GI Symptom: Negative for Nausea or Vomiting Diarrhea/Melena/Hematochezia GI Symptom: Positive for Hematochezia; Negative for Diarrhea or Melena Onset: Days Severity: Mild Associated Symptoms Associated Symptoms: Negative for Dysuria, Frequency or Hematuria Narrative Narrative: 84-year-old female history of prior DVT and kidney stones. Recent URI currentlybeing treated for bacterial bronchitis with an antibiotic and oral steroids. Said that she started having URI symptoms last Monday and then started having small clots with her bowel movements in the toilet and bright red blood when shewiped on several different days. No heavy bleeding. No hematemesis. No coffee-ground material. She is on no blood thinners. Saw her primary care physician earlier this week Dr. Lux patient states previously had a benign polyp s. Had negative COVID, RSV and influenza. Resected by the [facility] this past May. 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/2020) Atherosclerotic heart disease of [place] coronary artery without angina pectoris Essential hypertension Neck pain Knee pain, bilateral Osteoarthritis Dislocation of left ankle joint Chronic back pain Hyperlipidemia Home Medications ?Medication ?Instructions ?Recorded ?Last Taken ?Type isosorbide mononitrate 60 mg 60 mg PO DAILY chest pain 07/09/16 04/12/23 History tablet,extended release 24 hr amlodipine 10 mg tablet 10 mg PO DAILY blood pressur e 12/10/16 04/12/23 History simvastatin 20 mg tablet 20 mg PO QHS cholesterol 04/11/23 History zinc gluconate 50 mg tablet 50 mg PO DAILY [facility] 03/31/21 04/12/23 History omeprazole 20 mg capsule,delayed 20 mg PO BID gerd 01/0304/12/23 History release baclofen 10 mg tablet 10 mg PO BID PRN PRN Muscle Spasm 04/12/23 Unknown History metoprolol succinate 50 mg See Rx Instructions .Route .COMPLEX 04/12/23 Unknown History tablet,extended release 24 hr niacinamide 500 mg tablet 500 mg PO DAILY 04/12/23 Unk nown History furosemide 40 mg tablet 40 mg PO DAILY swelling #30 tabs 04/13/23 Unknown Rx potassium chloride 20 mEq 20 meq PO DAILY #30 tabs Unknown Rx tablet,extended release benazepril 40 mg tablet 20 mg PO DAILY blood pressur e 08/31/23 Unknown History calcium carbonate (Calcium 500) 500 mg PO DAILY Supple ment 08/31/23 Unknown History hydrocodone 7.5 mg-acetaminophen 1 tab PO Q6H PRN 08/13 01/05 Unknown History 325 mg tablet Allergy/AdvReac Type Severity Reaction Status Date / Time No Known Allergies Allergy Verified 08/31/23 10:07 Family History Grandmother Breast cancer Surgical History History of esophagogastroduodenoscopy (EGD) (02/11/22) 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) History of tonsillectomy and adenoidectomy History of wisdom tooth extraction History of coronary artery stent placement H/O parathyroidectomy (2011) History of open reduction and internal fixation (ORIF) procedure (03/2020) History of coronary artery stent placement (09/09/03) History of herniorrhaphy History of ankle surgery Social History household members: none housing: condominium current occupational status: retired pets and animals: Yes (dog) Smoking Status: Former smoker alcohol intake: current caffeine: Yes ROS ROS ED ROS Narrative Cough. Bright red blood per rectum. Constitutional Constitutional ED: Denies chills or fever(s) ENT ENT ED: Denies ear pain Cardiovascular Cardiovascular: Denies chest pain Respiratory/Chest Respiratory/Chest: Reports cough Gastrointestinal Gastrointestinal: Denies abdominal pain, constipation, diarrhea, melena, nausea or vomiting Genitourinary Genitourinary ED: Denies dysuria or hematuria Integumentary Denies abscess Neurologic Neurologic: Denies headache(s) Psychiatric Psychiatric: Denies anxiety Endocrine Endocrinology: Denies polydipsia Hematologic/Lymphatic Hematologic/Lymphatic: Denies easy bleeding, easy bruising or lymphadenopathy Allergic/Immunologic Allergic/Immunologic ED: Denies mouth swelling, tongue swelling or urticaria EXAM Physical Exam Narrative Exam Narrative: 84-year-old female in no acute distress. Sitting upright in her bed. Vital signs are stable afebrile. Pulse ox 98% on room air no hypoxia. Her neighbor sitting in bedside. H EENT exam pupils round reactive light. Extra motions intact. Moist mucous membranes. Neck nontender no lymphadenopathy. Lungs dry cough. Few scattered wheezes. No rales or rhonchi. Equal symmetric. Heart regular rhythm rate about 90 no murmur. Chest wall ribs nontender. Abdomen soft nontender. Moving all 4 extremities. Nontender no edema. Normal strength. Back nontender. Neurologically she is awake alert. Rectal exam no stool. No gross blood. She has 2 small hemorrhoids externally but they are notbleeding. There is no gross blood. Hemorrhoids are nontender. Nonthrombosed. Const Vital Signs: 08/08/24 15:49 08/08/24 16:28 08/08/24 17:48 Temperature 98.3 F Temperature Source Oral Pulse Rate 91 70 Respiratory Rate 16 16 18 Respiratory Pattern Normal Blood Pressure 126/91 H 128/78 H Blood Pressure Mean 102 94 Pulse Ox 98 95 Oxygen Delivery Method Room Air Positive well nourished and well developed; Negative for cachectic, contracturesor unkempt General Appearance ED: well developed and NAD; Negative for unkempt, cachectic, contractures or pallor Nutritional Appearance: Negative for cachectic HEENT Reports moist mucous membranes normocephalic and atraumatic; Negative for trauma or tenderness Eyes PERRL and EOMs intact bilaterally General Eye ED: Negative for pale conjunctiva or scleral icterus Neck no lymphadenopathy, supple and no JVD General: Negative for tenderness Lymph Lymphatic: Negative for other Resp normal respiratory effort and No clear to auscultation bilaterally Resp Narrative: Few scattered wheezes. Dry cough. Effort and Inspection: Negative for respiratory distress Auscultation: wheezes; Negative for rales or rhonchi Cardio regular rate, regular rhythm, S1 normal heart sound, S2 normal heart sound and no murmurs Rate: Negative for bradycardia or tachycardic Rhythm: Negative for abnormal rhythm GI non-tender, non-distended and no masses GI Narrative: Rectal exam. She has small external hemorrhoids. Nontender. Nonthrombosed. Nonbleeding. No blood. Rectal no mass. No stool. No blood. No melena. Nontender. Inspection: Negative for abdominal distention Auscultation: normoactive bowel sounds Palpation: soft; Negative for tender, guarding, hernia, mass, pulsatile mass or rebound tenderness present Back/Spine no CVA tenderness General Back: Negative for CVA tenderness Cervical Spine: Negative for cervical spine tenderness Thoracic Spine / Upper Back: Negative for thoracic spinal tenderness Lumbar Spine / Lower Back: Negative for lumbar spinal tenderness Coccyx: Negative for other Extremity full ROM General Extremety ED: Negative for edema, tenderness or other findings General Extremity: Negative for edema or other findings Neuro CN's II-XII intact bilaterally and moves all extremities Sensorium / Orientation: alert, oriented to person, oriented to place and oriented to time; Negative for orientation impaired, confused or lethargic Motor Exam: strength 5/5 throughout Psych mental status grossly normal and thought process normal Appearance: Negative for unkempt Attitude: No agitated Mood & Affect: Negative for depressed, anxious or tearful Skin no wounds General Skin Exam: Negative for jaundice or pallor Lesions: no lesions Rashes: no rashes Trauma: Negative for abrasion Nails: Negative for discolored MDM MDM MDM Narrative Medical decision making narrative: 84-year-old female URI symptoms. Currently on antibiotic and steroids. Chest x- ray being obtained. To the bright red blood per rectum screening labs to be obtained a CBC and chemistry. I do not think she needs to be typed and screenedby history it is not but not much bleeding. There is no obvious source. She does have external hemorrhoids but there not bleeding or tender. There is no blood on rectal exam. Nor any black stool. Repeat exam patient is doing well at 7:50 PM. I explained to her she has a stable lower GI bleed. It may be from an internal hemorrhoid or diverticulosis versus other etiologies. She stated she had a bowel movement here and had no further bleeding at this time. Her blood counts are stable. She does not need to be admitted. She can follow-up with her primary care physician and get outpatient endoscopy if this does not resolve. She has had a recent endoscopy done in May. Patient be discharged home. Hemorrhoidal cream. Warm sitz bath's. Follow-up with her doctor. History & Record Review Discussion w/independent historian: Patient Additional record(s) reviewed:: Prior inpatient record, Prior outpatient record,Prior ED visit and Prior labs Lab Data Attestation: I reviewed the patient's lab results. Lab results narrative: CBC shows a white count of 7. H&H 13 and 39. Platelets 240. Electrolytes show a gap of 15. BUN and creatinine are 31 and 1.1. Glucose 150. Labs are consistent with prior. Her blood counts have not significantly changed. Labs: Laboratory Results - last 24 hr 08/08/24 16:29 WBC 7.2 RBC 4.24 Hgb 13.2 Hct 39.5 MCV 93.2 MCH 31.1 MCHC 33.4 RDW Std Deviation 45.1 H RDW Coeff of [place] 13.2 Plt Count 240 MPV 9.5 Immature Gran % (Auto) 0.700 Neut % (Auto) 85.0 H Lymph % (Auto) 10.9 L [place] % (Auto) 3.1 Eos % (Auto) 0.0 Baso % (Auto) 0.3 Absolute Neuts (auto) 6.1 Absolute Lymphs (auto) 0.78 L Nucleated RBC % 0 Sodium 140 Potassium 4.8 Chloride 109 H Carbon Dioxide 15.9 L Anion Gap 15 BUN 31 H Creatinine 1.16 Estim Creat Clear Calc 31.18 L Est GFR (MDRD) Non-Af 46 L BUN/Creatinine Ratio 26.6 H Glucose 150 H Calcium 9.3 Radiography Chest X-Ray - ED: 2 View, Read by ED Physician, Read by Radiologist, Normal, Heart, Lungs, Mediastinum, Bony Structures, No Acute Disease and Chronic Changes Diagnostic Testing: Clinical Impression(s) from Imaging Studies Chest X-Ray 08/08/24 16:45 IMPRESSION: NO ACUTE FINDINGS Reading Location: [facility] Chest x-ray, 2 views, interpreted both by myself and the radiologist. AP and lateral. Shows chronic changes no acute process. Normal cardiac silhouette. Lung gibson are unremarkable. Discharge Plan Triage Chief Complaint: GI Bleed ED Provider: Leif Lewis Dx/Rx/DC Orders Clinical Impression: Acute lower gastrointestinal bleeding Instructions: ED Lower GI Bleeding (Stable) Prescriptions: No Action calcium carbonate [Calcium 500] 500 mg calcium (1,250 mg) tablet 500 mg PO DAILY zinc gluconate 50 mg tablet 50 mg PO DAILY omeprazole 20 mg capsule,delayed release(DR/EC) 20 mg PO BID hydrocodone-acetaminophen 7.5-325 mg tablet 1 tab PO Q6H PRN isosorbide mononitrate 60 MG tablet extended release 24 hr 60 mg PO DAILY amlodipine 10 MG tablet 10 mg PO DAILY Patient Comments: simvastatin 20 MG tablet 20 mg PO QHS benazepril 40 mg tablet 20 mg PO DAILY Patient Comments: baclofen 10 mg Tablet 10 mg PO BID PRN PRN (Reason: Muscle Spasm) metoprolol succinate 50 mg tablet extended release 24 hr See Rx Instructions .ROUTE .COMPLEX Rx Instructions: pt takes 50mg po q HS (unable to get this added into computer except under complex gibson niacinamide 500 mg tablet 500 mg PO DAILY potassium chloride 20 mEq tablet extended release 20 meq PO DAILY Qty: 30 0RF furosemide 40 mg tablet 40 mg PO DAILY Qty: 30 2RF Primary Care Provider: Stephanie Partida Referrals: Stephanie Partida DO [Primary Care Provider] - 3-5 Days if not improving Activity Restrictions/Additional Instructions: You have a stable lower GI bleed. Uncertain the cause it may be internal hemorrhoids or possibly diverticulosis versus other causes like a polyp. If this continues she will need another colonoscopy. Follow-up with your doctor. Obviously if he is get heavier bleeding or feeling lightheaded or startpassing larger clots you need to return to the emergency department. Your chest x-ray today was normal. Your blood counts were stable and or similarto where they have been in the past. There was no significant loss of blood. Print Language: Tuvaluan Disposition Disposition: Home, Self Care What to do if you have Problems For any increased pain, shortness of breath, bleeding, nausea or vomiting, chestpain, or any unexpected problems, contact your Primary Care Provider. Call [facility] ([phone]) or report to the closest Emergency Room. Call 911 if necessary. 08/08/241958 <Electronically signed by Leif Lewis MD> Cosigner Signature (if applicable): CC: Dr. Stephanei Partida, DO ~ Signed [facility] Work Phone: [phone]) 741-511703-24-2025 Telephone encounter Note* Telephone Encounter - Shelia Dhillon RN - 08/05/2024 7:53 AM EDT Reason for Call: Patient has been passing blood clots from her rectum when she sits down to urinate. She had some diarrhea initially but now just coming out as blood clots. It happened several times 2 days ago and several times yesterday. She was dizzy yesterday but not dizzy today. Outcome: Patient advised to be seen in the ED now. Patient verbalizes understanding and will go to [facility]. Reason for Disposition [1] MODERATE rectal bleeding (e.g., small blood clots, passing blood without stool, or toilet waterturns red) AND [2] more than once a day Protocols used: Rectal Tyhartvd-YLHMX-HE [facility]03-24-2025 Miscellaneous Notes* Telephone Encounter - Shelia Dhillon RN - 08/05/2024 7:53 AM EDT Reason for Call: Patient has been passing blood clots from her rectum when she sits down to urinate. She had some diarrhea initially but now just coming out as blood clots. It happened several times 2 days ago and several times yesterday. She was dizzy yesterday but not dizzy today. Outcome: Patient advised to be seen in the ED now. Patient verbalizes understanding and will go to [facility]. Reason for Disposition [1] MODERATE rectal bleeding (e.g., small blood clots, passing blood without stool, or toilet waterturns red) AND [2] more than once a day Protocols used: Rectal Sfkvhcsv-[id number]-BF documented in this encounterGood [facility]aritan Hospital03-20-2025 History of Present illness Narrative* Viri Campos APRN.JAXON - 08/01/2024 11:15 AM EDT FOLLOW UP VISIT - ENDOSCOPY Gabriela Ramon 1940 [id number] REFERRING PHYSICIAN: No referring provider defined for this encounter. Gabriela Ramon is a patient I am following for polyp removal by Dr. Hester. Dr. Hester performed lower endoscopy on 06/10/24. The patient was found to have Pathology demonstrated: FINAL DIAGNOSIS A. Ascending colon polyp, biopsy: - Tubular adenoma. B. Cecal polyp, endoscopic mucosal resection: - Tubular adenoma. - Lateral cauterized margins free of adenoma. - No evidence of invasive carcinoma. The patient notes no complaints since the procedure. VITALS: There were no vitals taken for this visit. General: patient is alert, cooperative, pleasant and in no acute distress On examination, the abdomen is benign. Assessment ASSESSMENT/PLAN: 1. Multiple adenomatous polyps - ICD9: 229.9, ICD10: D36.9 The operative findings and pathology report were reviewed with the patient, and the patient has hadthe opportunity to ask questions and have questions answered. If the patient notes any problems or changes in bowel function, the patient should contact me immediately. Otherwise I recommend follow up endoscopy in 6 months. HM updated and recall letter generated. Discussed treatment plan and patient voices understanding. Patient's questions answered appropriately. Medications and potential side effects were discussed and patient voices understanding. Return to the office as scheduled or as needed for worsening/no improvement. Viri Campos APRN.JAXON documented in this encounterGood Samaritan Hospital03-20-2025 NoteHNO ID: [id number] Author: IVRI CAMPOS APRN.JAVASCRIPT SOFTWARE ENGINEER Service: ? Author Type: Nurse Practitioner Type: Progress Notes Filed: 08/01/2024 13:01 Note Text: FOLLOW UP VISIT - ENDOSCOPY Gabriela Ramon 1940 [id number] REFERRING PHYSICIAN: No referring provider defined for this encounter. Gabriela Ramon is a patient I am following for polyp removal by Dr. Hester. Dr. Hester performed lower endoscopy on 06/10/24. The patient was found to have Pathology demonstrated: FINAL DIAGNOSIS A. Ascending colon polyp, biopsy: - Tubular adenoma. B. Cecal polyp, endoscopic mucosal resection: - Tubular adenoma. - Lateral cauterized margins free of adenoma. - No evidence of invasive carcinoma. The patient notes no complaints since the procedure. VITALS: There were no vitals taken for this visit. General: patient is alert, cooperative, pleasant and in no acute distress On examination, the abdomen is benign. Assessment ASSESSMENT/PLAN: 1. Multiple adenomatous polyps - ICD9: 229.9, ICD10: D36.9 The operative findings and pathology report were reviewed with the patient, and the patient has had the opportunity to ask questions and have questions answered. If the patient notes any problems or changes in bowel function, the patient should contact me immediately. Otherwise I recommend follow up endoscopy in 6 months. HM updated and recall letter generated. Discussed treatment plan and patient voices understanding. Patient's questions answered appropriately. Medications and potential side effects were discussed and patient voices understanding. Return to the office as scheduled or as needed for worsening/no improvement. [facility]i Campos APRN.[facility]ON[facility] Nurse Note* Musa Alvarado LPN - 06/10/2024 12:10 PM EST MD Hester and Winona at bedside for assessment d/t pain reported from procedure. Patient and caregiver/brother displayed understanding of when to return to ER. Fellow stopped again at bedside before discharge and Patient states she was feeling better. Patientdischarged with procedural documentation including when to return to ER. [facility]01-27-2025 Nurse Note* Musa Alvarado LPN - 06/10/2024 12:10 PM EST MD Hester and Winona at bedside for assessment d/t pain reported from procedure. Patient and caregiver/brother displayed understanding of when to return to ER. Fellow stopped again at bedside before discharge and Patient states she was feeling better. Patientdischarged with procedural documentation including when to return to ER. * Keo Crabtree RN - 06/10/2024 9:43 AM EST AMBULATORY PATIENT EDUCATION NOTE TOPIC: GI PROCEDURES: Colonoscopy with or without biopsies based on clinical findings READINESS TO LEARN INSTRUCTION PROVIDED TO: Patient, readness to learn accessed prior to procedure, Family member, andPatient and family member COGNITIVE ABILITY: Alert and oriented PTED MOTIVATION TO LEARN: Interested FAMILY SUPPORT: None - Unavailable/disinterested IPATIENT LEARNS BEST BY: Individual Instruction Written Instruction - Hand-outs Verbal Instruction FACTORS AFFECTING LEARNING: None PHYSICAL LIMITATIONS AFFECTING LEARNING: None LEARNING RESPONSE METHOD OF INSTRUCTION: Individual instruction PATIENT / FAMILY RESPONSE: Verbalizes understanding of: WORSENING CONDITION- Signs and symptoms of aworsening condition that warrant a call to the physician FOLLOW-UP PLAN: Complete - No need for follow-up SUPPLEMENTAL MATERIAL: Procedure Discharge Instructions REFERRAL (RECOMMENDATION): None * Park Cartagena RN - 06/10/2024 7:25 AM EST PRE OP LEARNING ASSESSMENT PROCEDURE/SURGERY: GI PROCEDURES: Colonoscopy READINESS TO LEARN COGNITIVE ABILITY: Alert and oriented MOTIVATION TO LEARN: Interested FAMILY SUPPORT: High - Very involved in pt care PATIENT LEARNS BEST BY: Individual Instruction FACTORS AFFECTING LEARNING: None PHYSICAL LIMITATIONS AFFECTING LEARNING: None Electronically Signed By: Park Cartagena, CATRACHITO In Department: GASTROENTEROLOGY documented in this encounterGood Samaritan Hospital01-27-2025 Nurse Note* Keo Crabtree RN - 06/10/2024 9:43 AM EST AMBULATORY PATIENT EDUCATION NOTE TOPIC: GI PROCEDURES: Colonoscopy with or without biopsies based on clinical findings READINESS TO LEARN INSTRUCTION PROVIDED TO: Patient, readness to learn accessed prior to procedure, Family member, andPatient and family member COGNITIVE ABILITY: Alert and oriented PTED MOTIVATION TO LEARN: Interested FAMILY SUPPORT: None - Unavailable/disinterested IPATIENT LEARNS BEST BY: Individual Instruction Written Instruction - Hand-outs Verbal Instruction FACTORS AFFECTING LEARNING: None PHYSICAL LIMITATIONS AFFECTING LEARNING: None LEARNING RESPONSE METHOD OF INSTRUCTION: Individual instruction PATIENT / FAMILY RESPONSE: Verbalizes understanding of: WORSENING CONDITION- Signs and symptoms of aworsening condition that warrant a call to the physician FOLLOW-UP PLAN: Complete - No need for follow-up SUPPLEMENTAL MATERIAL: Procedure Discharge Instructions REFERRAL (RECOMMENDATION): None [facility]01-27-2025 History and physical note* Yumiko Ta MD - 06/10/2024 7:30 AM EST HISTORY AND PHYSICAL Gabrieal Ramon, 84 year old female Current history and physical on file: No Is a new History and Physical required for today's visit? No Indication for procedure: Other polyp PROCEDURE(S) SCHEDULED FOR: Colonoscopy with or without biopsies and with or without removal of polyps or lesions, dilation (any means), treatment of bleeding (any means), based on clinical findings. BASELINE BEHAVIOR: Calm BASELINE ORIENTATION: A & O x3 All medications and allergies reviewed: Yes Skin Assessment: Warm dry mucus membranes pink Airway/Respiratory Assessment: Airway: visualization of the uvula- No Mouth: opening greater than 2 fingerbreadths- Yes Neck: full range of motion- Yes Breath sounds clear/equal- Yes Cardiac Assessment: Regular rate and rhythm without murmur Abdominal Assessment: Abdomen soft, non-tender, no masses or organomegaly. Sedation Plan: Deep Additional Comments: None Yumiko Ta MD [facility] Work Phone: 1(405) 543-215601-27-2025 History and physical note* Yumiko Ta MD - 06/10/2024 7:30 AM EST HISTORY AND PHYSICAL Gabriela Ramon, 84 year old female Current history and physical on file: No Is a new History and Physical required for today's visit? No Indication for procedure: Other polyp PROCEDURE(S) SCHEDULED FOR: Colonoscopy with or without biopsies and with or without removal of polyps or lesions, dilation (any means), treatment of bleeding (any means), based on clinical findings. BASELINE BEHAVIOR: Calm BASELINE ORIENTATION: A & O x3 All medications and allergies reviewed: Yes Skin Assessment: Warm dry mucus membranes pink Airway/Respiratory Assessment: Airway: visualization of the uvula- No Mouth: opening greater than 2 fingerbreadths- Yes Neck: full range of motion- Yes Breath sounds clear/equal- Yes Cardiac Assessment: Regular rate and rhythm without murmur Abdominal Assessment: Abdomen soft, non-tender, no masses or organomegaly. Sedation Plan: Deep Additional Comments: None Yumiko Ta MD documented in this encounterGood Samaritan Hospital01-27-2025 Nurse Note* Park Cartagena RN - 06/10/2024 7:25 AM EST PRE OP LEARNING ASSESSMENT PROCEDURE/SURGERY: GI PROCEDURES: Colonoscopy READINESS TO LEARN COGNITIVE ABILITY: Alert and oriented MOTIVATION TO LEARN: Interested FAMILY SUPPORT: High - Very involved in pt care PATIENT LEARNS BEST BY: Individual Instruction FACTORS AFFECTING LEARNING: None PHYSICAL LIMITATIONS AFFECTING LEARNING: None Electronically Signed By: Park Cartagena RN In Department: GASTROENTEROLOGY [facility]01-20-2025 Telephone encounter Note* Telephone Encounter - Clifton Nugent RN - 06/03/2024 2:32 PM EST Attempted to reach the patient at the contact number that they provided [phone] pt did not answer and no voicemail is set up at this time. [facility]01-20-2025 Miscellaneous Notes* Telephone Encounter - Clifton Nugent RN - 06/03/2024 2:32 PM EST Attempted to reach the patient at the contact number that they provided [phone] pt did not answer and no voicemail is set up at this time. documented in this encounterGood Samaritan Hospital09-26-2024 Instructions* Patient Instructions* Jing Gupta RN - 02/08/2024 2:43 PM EDT COLONOSCOPY BOWEL PREPARATION INSTRUCTIONS GOLYTELY/NULYTELY/TRILYTE/COLYTE Your doctor has scheduled you for a colonoscopy. To have a successful colonoscopy, you must have a clean colon, that is empty. A clean colon allows your doctor to see the entire colon & diagnose issues like polyps or cancer. For doctors, a clean colon is like driving on a guerrero day; a dirty colon like driving in a storm. It is very important that you follow these instructions exactly, or your colonoscopy might not be as effective, could be canceled, and you may need to do the bowel prep and the colonoscopy again. TRANSPORTATION REQUIREMENTS You are receiving IV sedation. For your safety, a responsible adult escort must accompany you to and from your procedure: Your adult escort MUST be present with you at check-in for your colonoscopy. Your adult escort MUST remain in the endoscopy area until you are discharged. Your adult escort MUST transport you home once you are discharged. You are NOT allowed to operate any form of transportation (i.e. drive a car, bicycle, etc.) or leave the Endoscopy Center ALONE. It is not safe to do so. If you cannot meet these requirements, your procedure will be canceled. MEDICATION REQUIREMENTS For your safety, certain medications will need to be stopped or adjusted before you can have your procedure: BLOOD THINNERS: If you take blood thinners, such as Coumadin (warfarin), Plavix (clopidogrel), Ticlid (ticlopidine hydrochloride), Agrylin (anagrelide), Xarelto (Rivaroxaban), Pradaxa (Dabigatran), Eliquis (Apixaban), or Effient (Prasugrel), contact the physician who is prescribing these medications at least 2 weeks prior to your procedure to discuss any necessary adjustments. DIABETES: If you take medications for diabetes, your dosage may need to be adjusted. If you are being treated for diabetes with insulin, diabetic pills, or other injectable medicationsdo not take your REGULAR dose after midnight on the day of your procedure. If you are taking any other types of insulin such as Lantus, Humalog, NPH (long- acting insulin), or70/30 insulin, take half your normal dose the day before your procedure. DIABETES/WEIGHT MANAGEMENT: If you take medications for weight-loss, your dosage may need to be adjusted Contact the doctor who prescribes this medication for further instructions. If you take medications for weight-loss like semaglutide (Ozempic, Wegovy, Rybelsus), dulaglutide (Trulicity), liraglutide (Victoza, Saxenda), exenatide (Byetta, Bydureon), or lixisenatide (Adylyxin), stop your medication 1 week prior to your procedure. If you take medications like canagliflozin (Invokana), dapagliflozin (Farxiga, Forxiga), empagliflozin (Jardiance), or ertugliflozin (Steglatro), stop your medication 1 day prior to your procedure. IRON: If you take iron pills, STOP them 1 week BEFORE your procedure, may resume after. OTHER MEDS: May take all other medications (including aspirin, antibiotics, water pills / diureticslike Lasix or Metolozone, blood pressure meds, etc.) at their usual scheduled time with a sip of water. DIET REQUIREMENTS The day before your colonoscopy, you may have a clear liquid diet (see below). The day of your colonoscopy, you may continue a clear liquid diet until 3 hours before your colonoscopy. Within 3 hours of your colonoscopy, take only any medications (as above) with a sip of water. Clear Liquid Diet Broth (chicken, beef or vegetable broth or bullion. Just the broth, no solids). Water Coffee or Tea (NO milk or creamer), but sugar and sugar substitutes are allowed. Clear liquids including clear, yellow, green, blue (NO red, NO orange, NO purple) Sodas / soft drinks Gatorade or other sports drinks Agustin-Aid or flavored drinks Plain Jell-O or other gelatins Fruit juice (strained; no-pulp) Popsicles or hard candy BOWEL PREPARATION (GOLYTELY/NULYTELY/TRILYTE/COLYTE) Split Dosing Bowel Prep: This means drinking your bowel prep in two doses. Split dosing helps cleanyour colon better and makes it less likely that your procedure will be canceled. Fill your prescription for Golytely/Nulytely/Trilyte/Colyte: The afternoon before your colonoscopy, mix the solution and refrigerate. You may add the flavor pack (if present) that came with the bowel preparation. Do not add ice, sugar, or other flavorings to the solution. You will drink your prep in two doses, by several hours. On the evening before your colonoscopy: 1. 6 PM drink the first half of the bowel preparation solution. Drink one 8-ounce glass every 15 minutes. 2. Six hours before your colonoscopy, drink the second half of the solution. Drink one 8-ounce glass every 15 minutes. 3. You may continue a clear liquid diet until 3 hours before your colonoscopy. Bowel prep can work differently from person to person. Some people's bowels move slowly and they may need different instructions. Please see your doctor in office or virtually for personalized bowel prep instructions if you have: Medical condition that needs special accommodations Had a poor bowel prep results or failed bowel prep attempts in the past. Had difficulty with anesthesia during the procedure. FREQUENTLY ASKED QUESTIONS Q: What if I suffer from constipation? A: Recommend taking extra laxatives to resolve your constipation days prior to entering the bowel prep day. Q: What if have had prior poor preps results in past? A: Contact your physician as you will likely need additional bowel prep instructions. Q: What if I have motility issues like Parkinson's, MS (multiple sclerosis), wheelchair dependent, etc.? or on medications that slow bowel emptying (narcotics, gabapentin, anticholinergic medicationsetc.) A: Contact your physician as you will likely need extra time and additional laxatives to complete your bowel prep. Q: What if I cannot drink large volume of liquid? A: Start your prep 2-3 hours earlier to allow yourself more time to complete the entire prep. Q: What if I can't finish my bowel prep? A: If you cannot finish your entire bowel prep, it is likely that your colonoscopy will need to be rescheduled due to poor prep quality. Q: What if I had bariatric surgery? Do I still have to complete the entire prep? A: Yes, gastric bypass surgery involves the stomach & small bowel. You may need to drink smaller amounts, slower (may need more time to complete your bowel prep). Gastric bypass does not alter the length of your colon so you will need to complete the entire bowel prep, it may just take longer time to complete it. Q: What if I am on dialysis? A: Please consult your wet end supervisor prior to scheduling to get instructions pertinent to you. In general, dialysis patients take the [employer] bowel prep and have the procedure same day of their dialysis (colonoscopy in AM, dialysis in PM). Q: How do I know if something is considered as clear liquid diet? A: If you can pour it in a glass and you can see through it, it is considered clear liquid Q: Can I eat nuts, seeds, beans, popcorn, dried fruits, vegetables & fruits that have skin peel? A: No, you will need to not eat these items starting 3 days prior to procedure. Q: Can I take Uber/Lyft/taxi/bus home? A: An adult MUST be present with you at check-in for your colonoscopy and remain in the endoscopy area until you are discharged. You can take Uber home only if this adult escort is with you at check in, remain in the endoscopy area until you are discharged, and takes the Uber with you to home. Q: Can I sleep it off here and drive myself home? A: No, you must have an adult with you at time of procedure check in, remain in the endoscopy center during your procedure, and drive you home. You cannot drive a vehicle after your procedure the rest of the day. documented in this encounterGood [facility]itan [facility]07-16-[facility]24 History of Present illness Narrative* Alka CamposLIZZY valdez.JAVASCRIPT SOFTWARE ENGINEER - 11/28/2023 2:00 PM EDT FOLLOW UP VISIT - ENDOSCOPY Gabriela Ramon 1940 [id number] REFERRING PHYSICIAN: Jerri Lemon [address] [facility] [address] Gabriela Ramon is a patient I am following for screening colonoscopy and dysphagia with pills. Dr. Lemon performed upper and lower endoscopy on 11/21/2023. The patient was found to have EGD Impression: - Normal examined jejunum. - A few duodenal polyps. Biopsied. - Gastritis. Biopsied. - Normal lower third of esophagus. Biopsied. - Normal middle third of esophagus. Biopsied. Colonoscopy Impression: - Diverticulosis in the sigmoid colon. - Seven 6 to 13 mm polyps in the cecum, removed with a cold snare. Resected and retrieved. Clips (MR conditional) were placed. - One large polyp in the cecum. Biopsied. - Eight small polyps at the hepatic flexure, removed with a cold biopsy forceps. Resected and retrieved. - Three small polyps in the sigmoid colon, removed with a cold snare. Resected and retrieved. Clips(MR conditional) were placed. - Two small polyps in the rectum, removed with a cold biopsy forceps. Resected and retrieved. - The examination was otherwise normal on direct and retroflexion views. Pathology demonstrated: FINAL DIAGNOSIS A. Stomach, antrum, biopsy: - Gastric antral body type mucosa with no pathologic diagnostic abnormality; see comment. B. Esophagus, distal, biopsy: - Squamous mucosa with no pathologic diagnostic abnormality. C. Esophagus, mid, biopsy: - Squamous mucosa with no pathologic diagnostic abnormality. D. Small bowel, duodenum, polyp, biopsy: - Duodenal mucosa with gastric foveolar metaplasia. E. Colon, cecum polyp x 7, biopsy: - Multiple fragments of tubular adenoma. - Traditional serrated adenomas. F. Colon, cecal polyp/mass, biopsy: - Tubular adenoma with high-grade dysplasia. G. Colon, hepatic flexure polyps x 8, biopsy: - Multiple fragments of tubular adenoma. H. Rectum, polyps x 2, biopsy: - Multiple fragments of tubular adenoma. I. Colon, sigmoid polyps x 3, biopsy: - Multiple fragments of tubular adenoma. Diagnosis Comment SP LAB A. No microorganisms morphologically compatible with Helicobacter Pylori like organisms are identified by routine H&E-stained sections The patient notes no complaints since the procedure. VITALS: There were no vitals taken for this visit. General: patient is alert, cooperative, pleasant and in no acute distress On examination, the abdomen is benign. Assessment ASSESSMENT/PLAN: 1. Multiple adenomatous polyps - ICD9: 229.9, ICD10: D36.9 The operative findings and pathology report were reviewed with the patient, and the patient has hadthe opportunity to ask questions and have questions answered. If the patient notes any problems or changes in bowel function, the patient should contact me immediately. Referral to Dr. Hester with Colorectal surgery for endoscopic mucosal resection of large cecum mass. Discussed treatment plan and patient voices understanding. Patient's questions answered appropriately. Viri Campos APRN.JAVASCRIPT SOFTWARE ENGINEER documented in this encounterGood Samaritan Hospital07-16-2024 NoteHNO ID: [id number] Author: VIRI CAMPOS APRN.JAVASCRIPT SOFTWARE ENGINEER Service: ? Author Type: Nurse Practitioner Type: Progress Notes Filed: 11/28/2023 15:04 Note Text: FOLLOW UP VISIT - ENDOSCOPY Gabriela Alonsones 1940 [id number] REFERRING PHYSICIAN: Jerri Lemon [address] [facility] [address] Gabriela Ramon is a patient I am following for screening colonoscopy and dysphagia with pills. Dr. Lemon performed upper and lower endoscopy on 11/21/2023. The patient was found to have EGD Impression: - Normal examined jejunum. - A few duodenal polyps. Biopsied. - Gastritis. Biopsied. - Normal lower third of esophagus. Biopsied. - Normal middle third of esophagus. Biopsied. Colonoscopy Impression: - Diverticulosis in the sigmoid colon. - Seven 6 to 13 mm polyps in the cecum, removed with a cold snare. Resected and retrieved. Clips (MR conditional) were placed. - One large polyp in the cecum. Biopsied. - Eight small polyps at the hepatic flexure, removed with a cold biopsy forceps. Resected and retrieved. - Three small polyps in the sigmoid colon, removed with a cold snare. Resected and retrieved. Clips (MR conditional) were placed. - Two small polyps in the rectum, removed with a cold biopsy forceps. Resected and retrieved. - The examination was otherwise normal on direct and retroflexion views. Pathology demonstrated: FINAL DIAGNOSIS A. Stomach, antrum, biopsy: - Gastric antral body type mucosa with no pathologic diagnostic abnormality; see comment. B. Esophagus, distal, biopsy: - Squamous mucosa with no pathologic diagnostic abnormality. C. Esophagus, mid, biopsy: - Squamous mucosa with no pathologic diagnostic abnormality. D. Small bowel, duodenum, polyp, biopsy: - Duodenal mucosa with gastric foveolar metaplasia. E. Colon, cecum polyp x 7, biopsy: - Multiple fragments of tubular adenoma. - Traditional serrated adenomas. F. Colon, cecal polyp/mass, biopsy: - Tubular adenoma with high-grade dysplasia. G. Colon, hepatic flexure polyps x 8, biopsy: - Multiple fragments of tubular adenoma. H. Rectum, polyps x 2, biopsy: - Multiple fragments of tubular adenoma. I. Colon, sigmoid polyps x 3, biopsy: - Multiple fragments of tubular adenoma. Diagnosis Comment SP LAB A. No microorganisms morphologically compatible with Helicobacter Pylori like organisms are identified by routine BLANCA-stained sections The patient notes no complaints since the procedure. VITALS: There were no vitals taken for this visit. General: patient is alert, cooperative, pleasant and in no acute distress On examination, the abdomen is benign. Assessment ASSESSMENT/PLAN: 1. Multiple adenomatous polyps - ICD9: 229.9, ICD10: D36.9 The operative findings and pathology report were reviewed with the patient, and the patient has had the opportunity to ask questions and have questions answered. If the patient notes any problems or changes in bowel function, the patient should contact me immediately. Referral to Dr. Hester with Colorectal surgery for endoscopic mucosal resection of large cecum mass. Discussed treatment plan and patient voices understanding. Patient's questions answered appropriately. Viri Campos APRN.[facility]07-09-2024 Note* Discharge Instr - Nursing - Mirta Still RN - 11/21/2023 1:26 PM EDT The patient received a copy of Colonoscopy and EGD discharge instructions that contain information for how to contact the physician who performed the procedure and when to seek medical care. [facility]07-[facility] Miscellaneous Notes* Discharge Instr - Nursing - Mirta Still RN - 11/21/2023 1:26 PM EDT The patient received a copy of Colonoscopy and EGD discharge instructions that contain information for how to contact the physician who performed the procedure and when to seek medical care. documented in this encounterGood Samaritan Hospital07-09-2024 Nurse Note* Mirta Still RN - 11/21/2023 1:[address] Ion chilel bedside to review procedure with patient, patient is alert to self and event, askingappropriate questions, will follow up with Dr Lemon in 1 week in his office. Patient requested tolay on her back due to complaint of back pain. [facility] Nurse Note* Mirta Still RN - 11/21/2023 1:[address] Ion chilel bedside to review procedure with patient, patient is alert to self and event, askingappropriate questions, will follow up with Dr Lemon in 1 week in his office. Patient requested tolay on her back due to complaint of back pain. * Mirta Still RN - 11/21/2023 1:08 PM EDT Patient received in phase II via cart in left lateral position, eyes closed but open to verbal stimuli. Skin warm and dry, respirations regular and unlabored, abdomen soft and non distended, denies discomfort with light palpation of abdomen. Denies nausea, resting comfortably on left side. documented in this encounterGood Samaritan Hospital07-09-2024 Nurse Note* Mirta Still RN - 11/21/2023 1:08 PM EDT Patient received in phase II via cart in left lateral position, eyes closed but open to verbal stimuli. Skin warm and dry, respirations regular and unlabored, abdomen soft and non distended, denies discomfort with light palpation of abdomen. Denies nausea, resting comfortably on left side. [facility]07-[facility] Attending History and physical note* Jerri Lemon MD - 11/21/2023 11:15 AM EDT UPDATED PROCEDURAL SEDATION HISTORY AND PHYSICAL EXAMINATION SERVICE DATE: 11/21/2023 SERVICE TIME: 11:43 AM PHYSICAL EXAM MUST BE COMPLETED ON ADMISSION PROCEDURE: Procedure Indications: The History and Physical (completed in the past 30 days) has been reviewed and the patient has beenexamined. The contents accurately reflect the patient's condition with the following additions or revisions since the H&P was completed. ASA Class: ASA Class:: Patient with mild systemic disease Examination indicates no changes. AIRWAY: Airway Visualization of Uvula: Yes Mouth opening greater than 2 fingerbreadths: Yes Neck Full Range of Motion: Yes LUNGS: Lungs clear to auscultation CARDIAC: Regular rhythm,Regular rate Provisional Diagnosis/Treatment Plan: dysphagia, personal history of colon polyps EGD and Colonoscopy SEDATION GOAL: Moderate This H&P can be found in the attached. SIGNATURE: Jerri Lemon MD PATIENT NAME: Gabriela Ramon DATE: November 21, 2023 TIME: 11:43 AM Source Note - Jerri Lemon MD - 11/21/2023 11:15 AM EDT HISTORY AND PHYSICAL Gabriela Ramon 1940 REFERRING PHYSICIAN: Stephanie Partida DO CHIEF COMPLAINT: Consult (Screening for colon cancer) HPI: The patient is a 83 year old female referred for endoscopy. Gabriela notes no current colon complaints The patient notes occasional dysphagia to pills Gabriela has undergone prior endoscopy. Performed upper and lower endoscopy for positive Cologuard test and for blood mixed with the stools on August 06, 2020. The patient was found to have gastritis andduodenitis. Colonoscopy demonstrated cecal tubular adenomas x 2 or 3 and descending colon lymphoid aggregates. The patient is being seen by me today at the request of Dr. Stephanie Partida DO for my opinion and advice regarding follow-up colonoscopy and history of gastritis with some dysphagia. PAST MEDICAL HISTORY PAST MEDICAL HISTORY Diagnosis Date Arthritis Cancer (HCC) skin Coronary atherosclerosis of unspecified type of vessel, [place] or graft Coronary artery disease Diverticulosis of colon (without mention of hemorrhage) Inguinal hernia Mixed hyperlipidemia Hyperlipidemia Osteoporosis, unspecified Osteoporosis PMH - PAST MEDICAL HISTORY OF 1944 Osteomyelitis Umbilical hernia Unspecified essential hypertension Essential hypertension Urinary calculus, unspecified Renal stones PAST SURGICAL HISTORY PAST SURGICAL HISTORY Procedure Laterality Date COLONOSCOPY - DIAGNOSTIC 08/06/2020 COLONOSCOPY FLX DX W/COLLJ SPEC WHEN PFRMD 12/23/2008 Colonoscopy EGD 08/06/2020 EYE SURGERY HX FRACTURE SURGERY Bilateral ankles HERNIA REPAIR HX LAPAROSCOPY SURG RPR INITIAL INGUINAL HERNIA 01/23/2012 NEUROPLASTY &/TRANSPOS MEDIAN NRV CARPAL TUNNE 05/15/2005 Carpal tunnel decomp left NEUROPLASTY &/TRANSPOS MEDIAN NRV CARPAL TUNNE 05/15/2006 Carpal tunnel decomp right ORTHOPEDIC SURGERY HX Left 04/07/2020 L Ankle Sx PAST SURGICAL HISTORY OF 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 HYDROcodone-acetaminophen 2.5-325 mg tab Take 1 tablet by mouth every 6 hours as needed for pain. furosemide (LASIX) 40 mg tablet Take 40 mg by mouth two times a day. Cephalexin 250 mg tab Take 250 mg by mouth once daily. POTASSIUM-99 ORAL Take 1 tablet by mouth once daily. omeprazole (PRILOSEC) 20 mg capsule Take 1 capsule by mouth once daily. mecobalamin (B12 ACTIVE ORAL) Take by mouth once daily. isosorbide mononitrate ER (IMDUR) 60 mg 24 hr tablet Take 1 tablet by mouth once daily. simvastatin (ZOCOR) 20 mg tablet Take 1 tablet by mouth daily at bedtime. hydroCHLOROthiazide (HYDRODIURIL, ESIDRIX) 25 mg tablet Take 1 tablet by mouth once daily. Benazepril HCl 40 mg tablet Take 1 tablet by mouth once daily. amLODIPine (NORVASC) 10 mg tablet Take 1 tablet by mouth once daily. atenolol (TENORMIN) 25 mg tablet Take 1 tablet by mouth twice daily. (Patient taking differently: Take 25 mg by mouth once daily.) baclofen (LIORESAL) 10 mg tablet Take 10 mg by mouth twice daily as needed (muscle spasms). TAKE 0.5-1 TABLET BID PRN FOR SPASMS No current facility-administered medications for this visit. ALLERGIES: Patient has no known allergies. PERSONAL HISTORY: SOCIAL HISTORY Social History Tobacco Use Smoking status: Former Packs/day: 1.00 Years: 3.00 Additional pack years: 0.00 Total pack years: 3.00 Types: Cigarettes Quit date: 05/15/1991 Years since quittin.4 Smokeless tobacco: Never Vaping Use Vaping Use: Never used Substance Use Topics Alcohol use: Yes Comment: RARELY Drug use: Never FAMILY HISTORY: FAMILY HISTORY FAMILY HISTORY Problem Relation Age of Onset Cancer Father Lung other (skin ca) Brother REVIEW OF SYMPTOMS: The review of systems data was entered by the nurse and reviewed by pr Nursing Notes: Shirley Jones LPN 11/03/2023 11:45 AM Signed REVIEW OF SYSTEMS: General: The patient denies fatigue, denies weight loss, denies weight gain, denies feeling hot, and denies feelings of cold. Eyes: The patient denies glaucoma, NOTES eye injury/surgery, does not wear glasses or contacts. Ear/Nose/Throat: The patient NOTES allergies, denies hayfever, denies ear infections, and denies bloody noses. Cardiovascular: The patient denies chest pain, NOTES heart disease, NOTES high blood pressure,denies cardiac stent, denies prior heart attack, denies irregular heart beat, NOTES high cholesterol, denies poor circulation, denies heart failure, other cardiac issues, denies claudication, denies cold feet, denies peripheral arterial stent. Respiratory: The patient denies tuberculosis, denies pneumonia, denies frequent cough, denies pulmonary embolism, denies shortness of breath, and denies coughing up blood. Gastrointestinal: The patient denies difficulty swallowing, NOTES acid reflux, denies ulcers, denies vomiting, denies jaundice/hepatitis, denies gallbladder problems, denies black or tarry stools, denies hemorrhoids, denies bleeding from rectum, denies diverticulitis, denies constipation, NOTES diarrhea, denies loss of stool control, and NOTES hernias. Kidney/Bladder: The patient denies kidney stones, denies urine infections, and denies bloody urine. Skin: The patient NOTES a history of skin cancer, denies bleeding/changing moles, and denies a history of skin rash. Neurologic: The patient denies a history of epilepsy/convulsions, denies headaches, denies head/spinal injuries, and denies stroke/TIA. Psychiatric: The patient denies psychiatric medications, denies depression, and denies voices, denies substance abuse. Endocrine: The patient denies thyroid disorders, denies diabetes, and denies hormonal problems. Hematologic: The patient denies a history of bruising, denies bleeding, and denies anemia, denies blood clots. Infections: The patient denies a history of measles and mumps, denies rheumatic fever, and denies sexually transmitted diseases. Musculoskeletal: The patient denies back pain/injury, denies back problems, denies sciatica, deniesknee/foot trouble, NOTES arthritis, or denies gout. When was patient's last Mammogram screening? 2017 Last Colonoscopy: 2020 Shirley Jones LPN PHYSICAL EXAMINATION: General: The patient is 83 year old female, well nourished, well hydrated in no acute distress. Thepatient is oriented to time, place, and person. VITALS: Blood pressure 128/78, pulse 79, temperature 36 C (96.8 F), height 157.5 cm (5' 2), cuslic69.7 kg (153 lb 9.6 oz), SpO2 99%. Body mass index is 28.09 kg/m . HEENT: Normal cephalic, ataumatic, pupils are equally round, sclera are anicteric, mucous membranesare moist, oropharynx is clear. Neck has no masses, asymmetry or lymphadenopathy. Thyroid is unremarkable. Respiratory: Clear to auscultation and percussion. Normal respiratory excursion and pattern. Cardiac: Examination is regular rate and rhythm. Abdominal exam: Soft, nontender, with no palpable masses. No hepatosplenomegaly. No palpable hernias. Rectal exam: exam deferred Extremities: no clubbing, cyanosis or edema. No adenopathy. Other: LABORATORY VALUES: As Noted RADIOLOGIC STUDIES: As Noted Assessment IMPRESSION: Dysphagia to pills, history of colon polyps PLAN: I plan to perform upper and lower endoscopy. We discussed the risks and benefits of the planned endoscopy. I have informed the patient that complications can occur including failure to completethe endoscopy and perforation. The patient had the opportunity to ask questions concerning the planned endoscopy. My staff has also explained the procedure to the patient in understandable terms and has given the patient printed material concerning the procedure. The patient freely consents to surgery. I plan to use Miralax bowel preperation for endoscopy Diagnoses: (K21.9) Gastroesophageal reflux disease without esophagitis (primary encounter diagnosis) (Z12.11) Special screening for malignant neoplasms, colon A letter was sent to Dr. Stephanie Partida DO indicating the above finding for this patient. Return to Clinic: The patient is instructed to follow-up with me after the testing has been completed. Jerri Lemon MD [facility]07-[facility] History and physical note* Jerri Lemon MD - 11/21/2023 11:15 AM EDT HISTORY AND PHYSICAL Gabriela Ramon 1940 REFERRING PHYSICIAN: Stephanie Partida DO CHIEF COMPLAINT: Consult (Screening for colon cancer) HPI: The patient is a 83 year old female referred for endoscopy. Gabriela notes no current colon complaints The patient notes occasional dysphagia to pills Gabriela has undergone prior endoscopy. Performed upper and lower endoscopy for positive Cologuard test and for blood mixed with the stools on August 06, 2020. The patient was found to have gastritis andduodenitis. Colonoscopy demonstrated cecal tubular adenomas x 2 or 3 and descending colon lymphoid aggregates. The patient is being seen by me today at the request of Dr. Stephanie Partida DO for my opinion and advice regarding follow-up colonoscopy and history of gastritis with some dysphagia. PAST MEDICAL HISTORY PAST MEDICAL HISTORY Diagnosis Date Arthritis Cancer (HCC) skin Coronary atherosclerosis of unspecified type of vessel, [place] or graft Coronary artery disease Diverticulosis of colon (without mention of hemorrhage) Inguinal hernia Mixed hyperlipidemia Hyperlipidemia Osteoporosis, unspecified Osteoporosis PMH - PAST MEDICAL HISTORY OF 1945 Osteomyelitis Umbilical hernia Unspecified essential hypertension Essential hypertension Urinary calculus, unspecified Renal stones PAST SURGICAL HISTORY PAST SURGICAL HISTORY Procedure Laterality Date COLONOSCOPY - DIAGNOSTIC 08/06/2020 COLONOSCOPY FLX DX W/COLLJ SPEC WHEN PFRMD 12/23/2008 Colonoscopy EGD 08/06/2020 EYE SURGERY HX FRACTURE SURGERY Bilateral ankles HERNIA REPAIR HX LAPAROSCOPY SURG RPR INITIAL INGUINAL HERNIA 01/23/2012 NEUROPLASTY &/TRANSPOS MEDIAN NRV CARPAL TUNNE 05/15/2005 Carpal tunnel decomp left NEUROPLASTY &/TRANSPOS MEDIAN NRV CARPAL TUNNE 05/15/2006 Carpal tunnel decomp right ORTHOPEDIC SURGERY HX Left 04/07/2020 L Ankle Sx PAST SURGICAL HISTORY OF 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 HYDROcodone-acetaminophen 2.5-325 mg tab Take 1 tablet by mouth every 6 hours as needed for pain. furosemide (LASIX) 40 mg tablet Take 40 mg by mouth two times a day. Cephalexin 250 mg tab Take 250 mg by mouth once daily. POTASSIUM-99 ORAL Take 1 tablet by mouth once daily. omeprazole (PRILOSEC) 20 mg capsule Take 1 capsule by mouth once daily. mecobalamin (B12 ACTIVE ORAL) Take by mouth once daily. isosorbide mononitrate ER (IMDUR) 60 mg 24 hr tablet Take 1 tablet by mouth once daily. simvastatin (ZOCOR) 20 mg tablet Take 1 tablet by mouth daily at bedtime. hydroCHLOROthiazide (HYDRODIURIL, ESIDRIX) 25 mg tablet Take 1 tablet by mouth once daily. Benazepril HCl 40 mg tablet Take 1 tablet by mouth once daily. amLODIPine (NORVASC) 10 mg tablet Take 1 tablet by mouth once daily. atenolol (TENORMIN) 25 mg tablet Take 1 tablet by mouth twice daily. (Patient taking differently: Take 25 mg by mouth once daily.) baclofen (LIORESAL) 10 mg tablet Take 10 mg by mouth twice daily as needed (muscle spasms). TAKE 0.5-1 TABLET BID PRN FOR SPASMS No current facility-administered medications for this visit. ALLERGIES: Patient has no known allergies. PERSONAL HISTORY: SOCIAL HISTORY Social History Tobacco Use Smoking status: Former Packs/day: 1.00 Years: 3.00 Additional pack years: 0.00 Total pack years: 3.00 Types: Cigarettes Quit date: 05/15/1991 Years since quittin.4 Smokeless tobacco: Never Vaping Use Vaping Use: Never used Substance Use Topics Alcohol use: Yes Comment: RARELY Drug use: Never FAMILY HISTORY: FAMILY HISTORY FAMILY HISTORY Problem Relation Age of Onset Cancer Father Lung other (skin ca) Brother REVIEW OF SYMPTOMS: The review of systems data was entered by the nurse and reviewed by pr Nursing Notes: Shirley Jones LPN 11/03/2023 11:45 AM Signed REVIEW OF SYSTEMS: General: The patient denies fatigue, denies weight loss, denies weight gain, denies feeling hot, and denies feelings of cold. Eyes: The patient denies glaucoma, NOTES eye injury/surgery, does not wear glasses or contacts. Ear/Nose/Throat: The patient NOTES allergies, denies hayfever, denies ear infections, and denies bloody noses. Cardiovascular: The patient denies chest pain, NOTES heart disease, NOTES high blood pressure,denies cardiac stent, denies prior heart attack, denies irregular heart beat, NOTES high cholesterol, denies poor circulation, denies heart failure, other cardiac issues, denies claudication, denies cold feet, denies peripheral arterial stent. Respiratory: The patient denies tuberculosis, denies pneumonia, denies frequent cough, denies pulmonary embolism, denies shortness of breath, and denies coughing up blood. Gastrointestinal: The patient denies difficulty swallowing, NOTES acid reflux, denies ulcers, denies vomiting, denies jaundice/hepatitis, denies gallbladder problems, denies black or tarry stools, denies hemorrhoids, denies bleeding from rectum, denies diverticulitis, denies constipation, NOTES diarrhea, denies loss of stool control, and NOTES hernias. Kidney/Bladder: The patient denies kidney stones, denies urine infections, and denies bloody urine. Skin: The patient NOTES a history of skin cancer, denies bleeding/changing moles, and denies a history of skin rash. Neurologic: The patient denies a history of epilepsy/convulsions, denies headaches, denies head/spinal injuries, and denies stroke/TIA. Psychiatric: The patient denies psychiatric medications, denies depression, and denies voices, denies substance abuse. Endocrine: The patient denies thyroid disorders, denies diabetes, and denies hormonal problems. Hematologic: The patient denies a history of bruising, denies bleeding, and denies anemia, denies blood clots. Infections: The patient denies a history of measles and mumps, denies rheumatic fever, and denies sexually transmitted diseases. Musculoskeletal: The patient denies back pain/injury, denies back problems, denies sciatica, deniesknee/foot trouble, NOTES arthritis, or denies gout. When was patient's last Mammogram screening? 2017 Last Colonoscopy: 2020 Shirley Jones LPN PHYSICAL EXAMINATION: General: The patient is 83 year old female, well nourished, well hydrated in no acute distress. Thepatient is oriented to time, place, and person. VITALS: Blood pressure 128/78, pulse 79, temperature 36 C (96.8 F), height 157.5 cm (5' 2), uicojm68.7 kg (153 lb 9.6 oz), SpO2 99%. Body mass index is 28.09 kg/m . HEENT: Normal cephalic, ataumatic, pupils are equally round, sclera are anicteric, mucous membranesare moist, oropharynx is clear. Neck has no masses, asymmetry or lymphadenopathy. Thyroid is unremarkable. Respiratory: Clear to auscultation and percussion. Normal respiratory excursion and pattern. Cardiac: Examination is regular rate and rhythm. Abdominal exam: Soft, nontender, with no palpable masses. No hepatosplenomegaly. No palpable hernias. Rectal exam: exam deferred Extremities: no clubbing, cyanosis or edema. No adenopathy. Other: LABORATORY VALUES: As Noted RADIOLOGIC STUDIES: As Noted Assessment IMPRESSION: Dysphagia to pills, history of colon polyps PLAN: I plan to perform upper and lower endoscopy. We discussed the risks and benefits of the planned endoscopy. I have informed the patient that complications can occur including failure to completethe endoscopy and perforation. The patient had the opportunity to ask questions concerning the planned endoscopy. My staff has also explained the procedure to the patient in understandable terms and has given the patient printed material concerning the procedure. The patient freely consents to surgery. I plan to use Miralax bowel preperation for endoscopy Diagnoses: (K21.9) Gastroesophageal reflux disease without esophagitis (primary encounter diagnosis) (Z12.11) Special screening for malignant neoplasms, colon A letter was sent to Dr. Stephanie Partida DO indicating the above finding for this patient. Return to Clinic: The patient is instructed to follow-up with me after the testing has been completed. Jerri Lemon MD [facility]07-09-2024 History and physical note* Jerri Lemon MD - 11/21/2023 11:15 AM EDT UPDATED PROCEDURAL SEDATION HISTORY AND PHYSICAL EXAMINATION SERVICE DATE: 11/21/2023 SERVICE TIME: 11:43 AM PHYSICAL EXAM MUST BE COMPLETED ON ADMISSION PROCEDURE: Procedure Indications: The History and Physical (completed in the past 30 days) has been reviewed and the patient has beenexamined. The contents accurately reflect the patient's condition with the following additions or revisions since the H&P was completed. ASA Class: ASA Class:: Patient with mild systemic disease Examination indicates no changes. AIRWAY: Airway Visualization of [place]vula: Yes Mouth opening greater than 2 fingerbreadths: Yes Neck Full Range of Motion: Yes LUNGS: Lungs clear to auscultation CARDIAC: Regular rhythm,Regular rate Provisional Diagnosis/Treatment Plan: dysphagia, personal history of colon polyps EGD and Colonoscopy SEDATION GOAL: Moderate This H&P can be found in the attached. SIGNATURE: Jerri Lemon MD PATIENT NAME: Gabriela Ramon DATE: November 21, 2023 TIME: 11:43 AM Source Note - Jerri Lemon MD - 11/21/2023 11:15 AM EDT HISTORY AND PHYSICAL Gabriela Ramon 1940 REFERRING PHYSICIAN: Stephanie Partida DO CHIEF COMPLAINT: Consult (Screening for colon cancer) HPI: The patient is a 83 year old female referred for endoscopy. Gabriela notes no current colon complaints The patient notes occasional dysphagia to pills Gabriela has undergone prior endoscopy. Performed upper and lower endoscopy for positive Cologuard test and for blood mixed with the stools on August 06, 2020. The patient was found to have gastritis andduodenitis. Colonoscopy demonstrated cecal tubular adenomas x 2 or 3 and descending colon lymphoid aggregates. The patient is being seen by me today at the request of Dr. Stephanie Partida DO for my opinion and advice regarding follow-up colonoscopy and history of gastritis with some dysphagia. PAST MEDICAL HISTORY PAST MEDICAL HISTORY Diagnosis Date Arthritis Cancer (HCC) skin Coronary atherosclerosis of unspecified type of vessel, [place] or graft Coronary artery disease Diverticulosis of colon (without mention of hemorrhage) Inguinal hernia Mixed hyperlipidemia Hyperlipidemia Osteoporosis, unspecified Osteoporosis PMH - PAST MEDICAL HISTORY OF 1944 Osteomyelitis Umbilical hernia Unspecified essential hypertension Essential hypertension Urinary calculus, unspecified Renal stones PAST SURGICAL HISTORY PAST SURGICAL HISTORY Procedure Laterality Date COLONOSCOPY - DIAGNOSTIC 08/06/2020 COLONOSCOPY FLX DX W/COLLJ SPEC WHEN PFRMD 12/23/2008 Colonoscopy EGD 08/06/2020 EYE SURGERY HX FRACTURE SURGERY Bilateral ankles HERNIA REPAIR HX LAPAROSCOPY SURG RPR INITIAL INGUINAL HERNIA 01/23/2012 NEUROPLASTY &/TRANSPOS MEDIAN NRV CARPAL TUNNE 05/15/2005 Carpal tunnel decomp left NEUROPLASTY &/TRANSPOS MEDIAN NRV CARPAL TUNNE 05/15/2006 Carpal tunnel decomp right ORTHOPEDIC SURGERY HX Left 04/07/2020 L Ankle Sx PAST SURGICAL HISTORY OF 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 HYDROcodone-acetaminophen 2.5-325 mg tab Take 1 tablet by mouth every 6 hours as needed for pain. furosemide (LASIX) 40 mg tablet Take 40 mg by mouth two times a day. Cephalexin 250 mg tab Take 250 mg by mouth once daily. POTASSIUM-99 ORAL Take 1 tablet by mouth once daily. omeprazole (PRILOSEC) 20 mg capsule Take 1 capsule by mouth once daily. mecobalamin (B12 ACTIVE ORAL) Take by mouth once daily. isosorbide mononitrate ER (IMDUR) 60 mg 24 hr tablet Take 1 tablet by mouth once daily. simvastatin (ZOCOR) 20 mg tablet Take 1 tablet by mouth daily at bedtime. hydroCHLOROthiazide (HYDRODIURIL, ESIDRIX) 25 mg tablet Take 1 tablet by mouth once daily. Benazepril HCl 40 mg tablet Take 1 tablet by mouth once daily. amLODIPine (NORVASC) 10 mg tablet Take 1 tablet by mouth once daily. atenolol (TENORMIN) 25 mg tablet Take 1 tablet by mouth twice daily. (Patient taking differently: Take 25 mg by mouth once daily.) baclofen (LIORESAL) 10 mg tablet Take 10 mg by mouth twice daily as needed (muscle spasms). TAKE 0.5-1 TABLET BID PRN FOR SPASMS No current facility-administered medications for this visit. ALLERGIES: Patient has no known allergies. PERSONAL HISTORY: SOCIAL HISTORY Social History Tobacco Use Smoking status: Former Packs/day: 1.00 Years: 3.00 Additional pack years: 0.00 Total pack years: 3.00 Types: Cigarettes Quit date: 05/15/1991 Years since quittin.4 Smokeless tobacco: Never Vaping Use Vaping Use: Never used Substance Use Topics Alcohol use: Yes Comment: RARELY Drug use: Never FAMILY HISTORY: FAMILY HISTORY FAMILY HISTORY Problem Relation Age of Onset Cancer Father Lung other (skin ca) Brother REVIEW OF SYMPTOMS: The review of systems data was entered by the nurse and reviewed by me Nursing Notes: Shirley Jones LPN 11/03/2023 11:45 AM Signed REVIEW OF SYSTEMS: General: The patient denies fatigue, denies weight loss, denies weight gain, denies feeling hot, and denies feelings of cold. Eyes: The patient denies glaucoma, NOTES eye injury/surgery, does not wear glasses or contacts. Ear/Nose/Throat: The patient NOTES allergies, denies hayfever, denies ear infections, and denies bloody noses. Cardiovascular: The patient denies chest pain, NOTES heart disease, NOTES high blood pressure,denies cardiac stent, denies prior heart attack, denies irregular heart beat, NOTES high cholesterol, denies poor circulation, denies heart failure, other cardiac issues, denies claudication, denies cold feet, denies peripheral arterial stent. Respiratory: The patient denies tuberculosis, denies pneumonia, denies frequent cough, denies pulmonary embolism, denies shortness of breath, and denies coughing up blood. Gastrointestinal: The patient denies difficulty swallowing, NOTES acid reflux, denies ulcers, denies vomiting, denies jaundice/hepatitis, denies gallbladder problems, denies black or tarry stools, denies hemorrhoids, denies bleeding from rectum, denies diverticulitis, denies constipation, NOTES diarrhea, denies loss of stool control, and NOTES hernias. Kidney/Bladder: The patient denies kidney stones, denies urine infections, and denies bloody urine. Skin: The patient NOTES a history of skin cancer, denies bleeding/changing moles, and denies a history of skin rash. Neurologic: The patient denies a history of epilepsy/convulsions, denies headaches, denies head/spinal injuries, and denies stroke/TIA. Psychiatric: The patient denies psychiatric medications, denies depression, and denies voices, denies substance abuse. Endocrine: The patient denies thyroid disorders, denies diabetes, and denies hormonal problems. Hematologic: The patient denies a history of bruising, denies bleeding, and denies anemia, denies blood clots. Infections: The patient denies a history of measles and mumps, denies rheumatic fever, and denies sexually transmitted diseases. Musculoskeletal: The patient denies back pain/injury, denies back problems, denies sciatica, deniesknee/foot trouble, NOTES arthritis, or denies gout. When was patient's last Mammogram screening? 2016 Last Colonoscopy: 2020 Shirley Jones LPN PHYSICAL EXAMINATION: General: The patient is 83 year old female, well nourished, well hydrated in no acute distress. Thepatient is oriented to time, place, and person. VITALS: Blood pressure 128/78, pulse 79, temperature 36 C (96.8 F), height 157.5 cm (5' 2), fvdsoi84.7 kg (153 lb 9.6 oz), SpO2 99%. Body mass index is 28.09 kg/m . HEENT: Normal cephalic, ataumatic, pupils are equally round, sclera are anicteric, mucous membranesare moist, oropharynx is clear. Neck has no masses, asymmetry or lymphadenopathy. Thyroid is unremarkable. Respiratory: Clear to auscultation and percussion. Normal respiratory excursion and pattern. Cardiac: Examination is regular rate and rhythm. Abdominal exam: Soft, nontender, with no palpable masses. No hepatosplenomegaly. No palpable hernias. Rectal exam: exam deferred Extremities: no clubbing, cyanosis or edema. No adenopathy. Other: LABORATORY VALUES: As Noted RADIOLOGIC STUDIES: As Noted Assessment IMPRESSION: Dysphagia to pills, history of colon polyps PLAN: I plan to perform upper and lower endoscopy. We discussed the risks and benefits of the planned endoscopy. I have informed the patient that complications can occur including failure to completethe endoscopy and perforation. The patient had the opportunity to ask questions concerning the planned endoscopy. My staff has also explained the procedure to the patient in understandable terms and has given the patient printed material concerning the procedure. The patient freely consents to surgery. I plan to use Miralax bowel preperation for endoscopy Diagnoses: (K21.9) Gastroesophageal reflux disease without esophagitis (primary encounter diagnosis) (Z12.11) Special screening for malignant neoplasms, colon A letter was sent to Dr. Stephanie Partida DO indicating the above finding for this patient. Return to Clinic: The patient is instructed to follow-up with me after the testing has been completed. Jerri Lemon MD * Jerri Lemon MD - 11/21/2023 11:15 AM EDT HISTORY AND PHYSICAL Gabriela Brown Tristen 1940 REFERRING PHYSICIAN: Stephanie Partida DO CHIEF COMPLAINT: Consult (Screening for colon cancer) HPI: The patient is a 83 year old female referred for endoscopy. Gabriela notes no current colon complaints The patient notes occasional dysphagia to pills Gabriela has undergone prior endoscopy. Performed upper and lower endoscopy for positive Cologuard test and for blood mixed with the stools on August 06, 2020. The patient was found to have gastritis andduodenitis. Colonoscopy demonstrated cecal tubular adenomas x 2 or 3 and descending colon lymphoid aggregates. The patient is being seen by me today at the request of Dr. Stephanie Partida DO for my opinion and advice regarding follow-up colonoscopy and history of gastritis with some dysphagia. PAST MEDICAL HISTORY PAST MEDICAL HISTORY Diagnosis Date Arthritis Cancer (HCC) skin Coronary atherosclerosis of unspecified type of vessel, [place] or graft Coronary artery disease Diverticulosis of colon (without mention of hemorrhage) Inguinal hernia Mixed hyperlipidemia Hyperlipidemia Osteoporosis, unspecified Osteoporosis PMH - PAST MEDICAL HISTORY OF 1944 Osteomyelitis Umbilical hernia Unspecified essential hypertension Essential hypertension Urinary calculus, unspecified Renal stones PAST SURGICAL HISTORY PAST SURGICAL HISTORY Procedure Laterality Date COLONOSCOPY - DIAGNOSTIC 08/06/2020 COLONOSCOPY FLX DX W/COLLJ SPEC WHEN PFRMD 12/23/2008 Colonoscopy EGD 08/06/2020 EYE SURGERY HX FRACTURE SURGERY Bilateral ankles HERNIA REPAIR HX LAPAROSCOPY SURG RPR INITIAL INGUINAL HERNIA 01/23/2012 NEUROPLASTY &/TRANSPOS MEDIAN NRV CARPAL TUNNE 05/15/2005 Carpal tunnel decomp left NEUROPLASTY &/TRANSPOS MEDIAN NRV CARPAL TUNNE 05/15/2006 Carpal tunnel decomp right ORTHOPEDIC SURGERY HX Left 04/07/2020 L Ankle Sx PAST SURGICAL HISTORY OF 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 HYDROcodone-acetaminophen 2.5-325 mg tab Take 1 tablet by mouth every 6 hours as needed for pain. furosemide (LASIX) 40 mg tablet Take 40 mg by mouth two times a day. Cephalexin 250 mg tab Take 250 mg by mouth once daily. POTASSIUM-99 ORAL Take 1 tablet by mouth once daily. omeprazole (PRILOSEC) 20 mg capsule Take 1 capsule by mouth once daily. mecobalamin (B12 ACTIVE ORAL) Take by mouth once daily. isosorbide mononitrate ER (IMDUR) 60 mg 24 hr tablet Take 1 tablet by mouth once daily. simvastatin (ZOCOR) 20 mg tablet Take 1 tablet by mouth daily at bedtime. hydroCHLOROthiazide (HYDRODIURIL, ESIDRIX) 25 mg tablet Take 1 tablet by mouth once daily. Benazepril HCl 40 mg tablet Take 1 tablet by mouth once daily. amLODIPine (NORVASC) 10 mg tablet Take 1 tablet by mouth once daily. atenolol (TENORMIN) 25 mg tablet Take 1 tablet by mouth twice daily. (Patient taking differently: Take 25 mg by mouth once daily.) baclofen (LIORESAL) 10 mg tablet Take 10 mg by mouth twice daily as needed (muscle spasms). TAKE 0.5-1 TABLET BID PRN FOR SPASMS No current facility-administered medications for this visit. ALLERGIES: Patient has no known allergies. PERSONAL HISTORY: SOCIAL HISTORY Social History Tobacco Use Smoking status: Former Packs/day: 1.00 Years: 3.00 Additional pack years: 0.00 Total pack years: 3.00 Types: Cigarettes Quit date: 05/15/1991 Years since quittin.4 Smokeless tobacco: Never Vaping Use Vaping Use: Never used Substance Use Topics Alcohol use: Yes Comment: RARELY Drug use: Never FAMILY HISTORY: FAMILY HISTORY FAMILY HISTORY Problem Relation Age of Onset Cancer Father Lung other (skin ca) Brother REVIEW OF SYMPTOMS: The review of systems data was entered by the nurse and reviewed by me Nursing Notes: Shirley Jones LPN 11/03/2023 11:45 AM Signed REVIEW OF SYSTEMS: General: The patient denies fatigue, denies weight loss, denies weight gain, denies feeling hot, and denies feelings of cold. Eyes: The patient denies glaucoma, NOTES eye injury/surgery, does not wear glasses or contacts. Ear/Nose/Throat: The patient NOTES allergies, denies hayfever, denies ear infections, and denies bloody noses. Cardiovascular: The patient denies chest pain, NOTES heart disease, NOTES high blood pressure,denies cardiac stent, denies prior heart attack, denies irregular heart beat, NOTES high cholesterol, denies poor circulation, denies heart failure, other cardiac issues, denies claudication, denies cold feet, denies peripheral arterial stent. Respiratory: The patient denies tuberculosis, denies pneumonia, denies frequent cough, denies pulmonary embolism, denies shortness of breath, and denies coughing up blood. Gastrointestinal: The patient denies difficulty swallowing, NOTES acid reflux, denies ulcers, denies vomiting, denies jaundice/hepatitis, denies gallbladder problems, denies black or tarry stools, denies hemorrhoids, denies bleeding from rectum, denies diverticulitis, denies constipation, NOTES diarrhea, denies loss of stool control, and NOTES hernias. Kidney/Bladder: The patient denies kidney stones, denies urine infections, and denies bloody urine. Skin: The patient NOTES a history of skin cancer, denies bleeding/changing moles, and denies a history of skin rash. Neurologic: The patient denies a history of epilepsy/convulsions, denies headaches, denies head/spinal injuries, and denies stroke/TIA. Psychiatric: The patient denies psychiatric medications, denies depression, and denies voices, denies substance abuse. Endocrine: The patient denies thyroid disorders, denies diabetes, and denies hormonal problems. Hematologic: The patient denies a history of bruising, denies bleeding, and denies anemia, denies blood clots. Infections: The patient denies a history of measles and mumps, denies rheumatic fever, and denies sexually transmitted diseases. Musculoskeletal: The patient denies back pain/injury, denies back problems, denies sciatica, deniesknee/foot trouble, NOTES arthritis, or denies gout. When was patient's last Mammogram screening? 2016 Last Colonoscopy: 2020 Shirley Jones LPN PHYSICAL EXAMINATION: General: The patient is 83 year old female, well nourished, well hydrated in no acute distress. Thepatient is oriented to time, place, and person. VITALS: Blood pressure 128/78, pulse 79, temperature 36 C (96.8 F), height 157.5 cm (5' 2), ytskaw81.7 kg (153 lb 9.6 oz), SpO2 99%. Body mass index is 28.09 kg/m . HEENT: Normal cephalic, ataumatic, pupils are equally round, sclera are anicteric, mucous membranesare moist, oropharynx is clear. Neck has no masses, asymmetry or lymphadenopathy. Thyroid is unremarkable. Respiratory: Clear to auscultation and percussion. Normal respiratory excursion and pattern. Cardiac: Examination is regular rate and rhythm. Abdominal exam: Soft, nontender, with no palpable masses. No hepatosplenomegaly. No palpable hernias. Rectal exam: exam deferred Extremities: no clubbing, cyanosis or edema. No adenopathy. Other: LABORATORY VALUES: As Noted RADIOLOGIC STUDIES: As Noted Assessment IMPRESSION: Dysphagia to pills, history of colon polyps PLAN: I plan to perform upper and lower endoscopy. We discussed the risks and benefits of the planned endoscopy. I have informed the patient that complications can occur including failure to completethe endoscopy and perforation. The patient had the opportunity to ask questions concerning the planned endoscopy. My staff has also explained the procedure to the patient in understandable terms and has given the patient printed material concerning the procedure. The patient freely consents to surgery. I plan to use Miralax bowel preperation for endoscopy Diagnoses: (K21.9) Gastroesophageal reflux disease without esophagitis (primary encounter diagnosis) (Z12.11) Special screening for malignant neoplasms, colon A letter was sent to Dr. Stephanie Partida DO indicating the above finding for this patient. Return to Clinic: The patient is instructed to follow-up with me after the testing has been completed. Jerri Lemon MD documented in [facility] encounter[facility] History of Present illness Narrative* Jerri Lemon MD - 11/03/2023 5:49 PM EDT HISTORY AND PHYSICAL Gabriela Brown Tristen 1940 REFERRING PHYSICIAN: Stephanie Partida DO CHIEF COMPLAINT: Consult (Screening for colon cancer) HPI: The patient is a 83 year old female referred for endoscopy. Gabriela notes no current colon complaints The patient notes occasional dysphagia to pills Gabriela has undergone prior endoscopy. Performed upper and lower endoscopy for positive Cologuard test and for blood mixed with the stools on August 06, 2020. The patient was found to have gastritis andduodenitis. Colonoscopy demonstrated cecal tubular adenomas x 2 or 3 and descending colon lymphoid aggregates. The patient is being seen by me today at the request of Dr. Stephanie Partida DO for my opinion and advice regarding follow-up colonoscopy and history of gastritis with some dysphagia. PAST MEDICAL HISTORY Diagnosis Date Arthritis Cancer (HCC) skin Coronary atherosclerosis of unspecified type of vessel, [place] or graft Coronary artery disease Diverticulosis of colon (without mention of hemorrhage) Inguinal hernia Mixed hyperlipidemia Hyperlipidemia Osteoporosis, unspecified Osteoporosis PMH - PAST MEDICAL HISTORY OF 1944 Osteomyelitis Umbilical hernia Unspecified essential hypertension Essential hypertension Urinary calculus, unspecified Renal stones PAST SURGICAL HISTORY Procedure Laterality Date COLONOSCOPY - DIAGNOSTIC 08/06/2020 COLONOSCOPY FLX DX W/COLLJ SPEC WHEN PFRMD 12/23/2008 Colonoscopy EGD 08/06/2020 EYE SURGERY HX FRACTURE SURGERY Bilateral ankles HERNIA REPAIR HX LAPAROSCOPY SURG RPR INITIAL INGUINAL HERNIA 01/23/2012 NEUROPLASTY &/TRANSPOS MEDIAN NRV CARPAL TUNNE 05/15/2005 Carpal tunnel decomp left NEUROPLASTY &/TRANSPOS MEDIAN NRV CARPAL TUNNE 05/15/2006 Carpal tunnel decomp right ORTHOPEDIC SURGERY HX Left 04/07/2020 L Ankle Sx PAST SURGICAL HISTORY OF 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 HYDROcodone-acetaminophen 2.5-325 mg tab Take 1 tablet by mouth every 6 hours as needed for pain. furosemide (LASIX) 40 mg tablet Take 40 mg by mouth two times a day. Cephalexin 250 mg tab Take 250 mg by mouth once daily. POTASSIUM-99 ORAL Take 1 tablet by mouth once daily. omeprazole (PRILOSEC) 20 mg capsule Take 1 capsule by mouth once daily. mecobalamin (B12 ACTIVE ORAL) Take by mouth once daily. isosorbide mononitrate ER (IMDUR) 60 mg 24 hr tablet Take 1 tablet by mouth once daily. simvastatin (ZOCOR) 20 mg tablet Take 1 tablet by mouth daily at bedtime. hydroCHLOROthiazide (HYDRODIURIL, ESIDRIX) 25 mg tablet Take 1 tablet by mouth once daily. Benazepril HCl 40 mg tablet Take 1 tablet by mouth once daily. amLODIPine (NORVASC) 10 mg tablet Take 1 tablet by mouth once daily. atenolol (TENORMIN) 25 mg tablet Take 1 tablet by mouth twice daily. (Patient taking differently: Take 25 mg by mouth once daily.) baclofen (LIORESAL) 10 mg tablet Take 10 mg by mouth twice daily as needed (muscle spasms). TAKE 0.5-1 TABLET BID PRN FOR SPASMS No current facility-administered medications for this visit. ALLERGIES: Patient has no known allergies. PERSONAL HISTORY: Social History Tobacco Use Smoking status: Former Packs/day: 1.00 Years: 3.00 Additional pack years: 0.00 Total pack years: 3.00 Types: Cigarettes Quit date: 05/15/1991 Years since quittin.4 Smokeless tobacco: Never Vaping Use Vaping Use: Never used Substance Use Topics Alcohol use: Yes Comment: RARELY Drug use: Never FAMILY HISTORY: FAMILY HISTORY Problem Relation Age of Onset Cancer Father Lung other (skin ca) Brother REVIEW OF SYMPTOMS: The review of systems data was entered by the nurse and reviewed by pr Nursing Notes: Shirley Jones LPN 11/03/2023 11:45 AM Signed REVIEW OF SYSTEMS: General: The patient denies fatigue, denies weight loss, denies weight gain, denies feeling hot, and denies feelings of cold. Eyes: The patient denies glaucoma, NOTES eye injury/surgery, does not wear glasses or contacts. Ear/Nose/Throat: The patient NOTES allergies, denies hayfever, denies ear infections, and denies bloody noses. Cardiovascular: The patient denies chest pain, NOTES heart disease, NOTES high blood pressure,denies cardiac stent, denies prior heart attack, denies irregular heart beat, NOTES high cholesterol, denies poor circulation, denies heart failure, other cardiac issues, denies claudication, denies cold feet, denies peripheral arterial stent. Respiratory: The patient denies tuberculosis, denies pneumonia, denies frequent cough, denies pulmonary embolism, denies shortness of breath, and denies coughing up blood. Gastrointestinal: The patient denies difficulty swallowing, NOTES acid reflux, denies ulcers, denies vomiting, denies jaundice/hepatitis, denies gallbladder problems, denies black or tarry stools, denies hemorrhoids, denies bleeding from rectum, denies diverticulitis, denies constipation, NOTES diarrhea, denies loss of stool control, and NOTES hernias. Kidney/Bladder: The patient denies kidney stones, denies urine infections, and denies bloody urine. Skin: The patient NOTES a history of skin cancer, denies bleeding/changing moles, and denies a history of skin rash. Neurologic: The patient denies a history of epilepsy/convulsions, denies headaches, denies head/spinal injuries, and denies stroke/TIA. Psychiatric: The patient denies psychiatric medications, denies depression, and denies voices, denies substance abuse. Endocrine: The patient denies thyroid disorders, denies diabetes, and denies hormonal problems. Hematologic: The patient denies a history of bruising, denies bleeding, and denies anemia, denies blood clots. Infections: The patient denies a history of measles and mumps, denies rheumatic fever, and denies sexually transmitted diseases. Musculoskeletal: The patient denies back pain/injury, denies back problems, denies sciatica, deniesknee/foot trouble, NOTES arthritis, or denies gout. When was patient's last Mammogram screening? 2017 Last Colonoscopy: 2020 Shirley Jones LPN PHYSICAL EXAMINATION: General: The patient is 83 year old female, well nourished, well hydrated in no acute distress. Thepatient is oriented to time, place, and person. VITALS: Blood pressure 128/78, pulse 79, temperature 36 C (96.8 F), height 157.5 cm (5' 2), qkonth56.7 kg (153 lb 9.6 oz), SpO2 99%. Body mass index is 28.09 kg/m . HEENT: Normal cephalic, ataumatic, pupils are equally round, sclera are anicteric, mucous membranesare moist, oropharynx is clear. Neck has no masses, asymmetry or lymphadenopathy. Thyroid is unremarkable. Respiratory: Clear to auscultation and percussion. Normal respiratory excursion and pattern. Cardiac: Examination is regular rate and rhythm. Abdominal exam: Soft, nontender, with no palpable masses. No hepatosplenomegaly. No palpable hernias. Rectal exam: exam deferred Extremities: no clubbing, cyanosis or edema. No adenopathy. Other: LABORATORY VALUES: As Noted RADIOLOGIC STUDIES: As Noted Assessment IMPRESSION: Dysphagia to pills, history of colon polyps PLAN: I plan to perform upper and lower endoscopy. We discussed the risks and benefits of the planned endoscopy. I have informed the patient that complications can occur including failure to completethe endoscopy and perforation. The patient had the opportunity to ask questions concerning the planned endoscopy. My staff has also explained the procedure to the patient in understandable terms and has given the patient printed material concerning the procedure. The patient freely consents to surgery. I plan to use Miralax bowel preperation for endoscopy Diagnoses: (K21.9) Gastroesophageal reflux disease without esophagitis (primary encounter diagnosis) (Z12.11) Special screening for malignant neoplasms, colon A letter was sent to Dr. Stephanie Partida DO indicating the above finding for this patient. Return to Clinic: The patient is instructed to follow-up with me after the testing has been completed. Jerri Lemon MD documented in this encounterGood [facility] Telephone encounter Note * Telephone Encounter - Marina Daniel - 11/03/2023 12:14 PM EDT Patient wanting to be on waitlist for ion only in asc Patient scheduled 02/06/2024 as of now Marina Daniel [employer] [facility] Miscellaneous Notes* Telephone Encounter - Marina Daniel - 11/03/2023 12:14 PM EDT Patient wanting to be on waitlist for ion only in asc Patient scheduled 02/06/2024 as of now Marina Daniel [employer] documented in this encounterGood [facility]aritan Hospital06-21-2024 Instructions* Patient Instructions* Jerri Lemon MD - 11/03/2023 11:57 AM EDT Images from the original note were not included. Bowel Preparation Instructions for: Miralax-Gatorade Preparations IF YOU DO NOT FOLLOW THESE DIRECTIONS, YOUR COLONOSCOPY WILL BE CANCELLED. Abdullahi Instructions: Your bowel must be empty so that your doctor can clearly view your colon. Follow all of the instructions in this handout EXACTLY as they are written. Do NOT eat any solid food the ENTIRE day before your colonoscopy. Buy your bowel preparation at least 5 days before your colonoscopy. Four (4) Dulcolax laxative tablets containing 5mg of bisacodyl each (NOT Dulcolax stool softener) One (1) 8.3oz. bottle Miralax (238 grams) or generic equivalent 2 x 32oz. Bottles of Gatorade (NOT RED) Diabetic Patients: Use G2 (Gatorade 2) TRANSPORTATION on the Day of Your Exam A responsible adult MUST be present with you at Check In prior to your colonoscopy and REMAIN in the endoscopy area until you are discharged. You are NOT ALLOWED to drive, take a taxi or bus, or leave the Endoscopy Center ALONE. If you do not have a responsible funeral limousine driver (family member or friend) withyou to take you home, your exam cannot be done with sedation and will be cancelled. Please bring a list of all of your current medications, including any Cpif-ehz-Iptccfa medications with you. Medications If you take insulin, diabetic medications or blood thinners such as Coumadin (warfarin), Plavix (clopidogrel), Ticlid (ticlopidine hydrochloride), Agrylin (anagrelide), Xarelto (Rivaroxaban), Pradaxa(Dabigatran), Eliquis (Apixaban), and Effient (Prasugrel). You MUST call the doctors who orders those medicines for instructions on altering the dosage before your colonoscopy. All other medications should be taken the day of the exam with a sip of water including ASPIRIN. Five (5) Days Before Your Colonoscopy Do NOT take medicines that stop diarrhea - such as Imodium, Kaopectate, or Pepto Bismol. Do NOT take fiber supplements - such as Metamucil, Citrucel, or Perdiem. Do NOT take products that contain iron - such as multi-vitamins (the label lists what is in the products). Three (3) Days Before Your Colonoscopy Do NOT eat high-fiber foods - such as popcorn, beans, seeds (flax, sunflower, quinoa), multigrain bread, nuts, salad/vegetables, or fresh and dried fruit. 1 Bowel Preparation Instructions for: Miralax-Gatorade Preparations One (1) Day Before Your Colonoscopy Only drink clear liquids the ENTIRE DAY before your colonoscopy. Do NOT eat any solid foods. Drink at least 8 ounces of clear liquids every hour after waking up. The clear liquids you can drink include: Clear Liquid (NO RED LIQUIDS) DO NOT DRINK Gatorade, Pedialyte or Powerade Clear broth or bouillon Coffee or tea (no milk or non-dairy creamer) Carbonated and non-carbonated soft drinks Agustin-Aid or other fruit flavored drinks Strained fruit juices (no pulp) Jell-O, popsicles, hard candy Water Alcohol Milk or non-dairy creamers Noodles or vegetables in soup Juice with pulp Liquid you cannot see through Do not use tobacco/vaping products Mix 1/2 of Miralax bottle (119 grams) in each 32 ounces of Gatorade bottle until dissolved. Keep cool in the refrigerator. DO NOT ADD ICE. The bowel preparation solution will be consumed in two parts. Part 1 5:00 PM - Evening before your colonoscopy Take 4 Dulcolax tablets. 6 PM - Evening before your colonoscopy Drink 32 oz. of the mixed solution. Drink an 8 oz. glass of bowel preparation every 15 minutes for a total of 4 glasses. Fifteen (15) minutes later, drink an 8 oz. glass of of clear liquids every 15 minutes for a total of 2 glasses. You may continue to drink clear liquids till midnight. Part 2 On the day of your colonoscopy you may drink clear liquids up to (three) 3 hours prior to procedure. 4 1/2 hours before your colonoscopy Take another 32 oz. bottle of mixed solution. Drink an 8 oz. glass of bowel prep every 15 minutes for a total of 4 glasses. Fifteen (15) minutes later, drink an 8 oz. glass of clear liquids every 15 minutes for a total of 2glasses. You may continue to drink clear liquids up to (three) 3 hours before your exam. 2 04/2019 documented in this encounterGood [facility]ar[facility]06-21-2024 Nurse Note* Shirley Jones LPN - 11/03/2023 11:44 AM EDT REVIEW OF SYSTEMS: General: The patient denies fatigue, denies weight loss, denies weight gain, denies feeling hot, and denies feelings of cold. Eyes: The patient denies glaucoma, NOTES eye injury/surgery, does not wear glasses or contacts. Ear/Nose/Throat: The patient NOTES allergies, denies hayfever, denies ear infections, and denies bloody noses. Cardiovascular: The patient denies chest pain, NOTES heart disease, NOTES high blood pressure,denies cardiac stent, denies prior heart attack, denies irregular heart beat, NOTES high cholesterol, denies poor circulation, denies heart failure, other cardiac issues, denies claudication, denies cold feet, denies peripheral arterial stent. Respiratory: The patient denies tuberculosis, denies pneumonia, denies frequent cough, denies pulmonary embolism, denies shortness of breath, and denies coughing up blood. Gastrointestinal: The patient denies difficulty swallowing, NOTES acid reflux, denies ulcers, denies vomiting, denies jaundice/hepatitis, denies gallbladder problems, denies black or tarry stools, denies hemorrhoids, denies bleeding from rectum, denies diverticulitis, denies constipation, NOTES diarrhea, denies loss of stool control, and NOTES hernias. Kidney/Bladder: The patient denies kidney stones, denies urine infections, and denies bloody urine. Skin: The patient NOTES a history of skin cancer, denies bleeding/changing moles, and denies a history of skin rash. Neurologic: The patient denies a history of epilepsy/convulsions, denies headaches, denies head/spinal injuries, and denies stroke/TIA. Psychiatric: The patient denies psychiatric medications, denies depression, and denies voices, denies substance abuse. Endocrine: The patient denies thyroid disorders, denies diabetes, and denies hormonal problems. Hematologic: The patient denies a history of bruising, denies bleeding, and denies anemia, denies blood clots. Infections: The patient denies a history of measles and mumps, denies rheumatic fever, and denies sexually transmitted diseases. Musculoskeletal: The patient denies back pain/injury, denies back problems, denies sciatica, deniesknee/foot trouble, NOTES arthritis, or denies gout. When was patient's last Mammogram screening? 2017 Last Colonoscopy: 2020 Shirley Jones LPN [facility] Nurse Note* Shirley Jones LPN - 11/03/2023 11:44 AM EDT REVIEW OF SYSTEMS: General: The patient denies fatigue, denies weight loss, denies weight gain, denies feeling hot, and denies feelings of cold. Eyes: The patient denies glaucoma, NOTES eye injury/surgery, does not wear glasses or contacts. Ear/Nose/Throat: The patient NOTES allergies, denies hayfever, denies ear infections, and denies bloody noses. Cardiovascular: The patient denies chest pain, NOTES heart disease, NOTES high blood pressure,denies cardiac stent, denies prior heart attack, denies irregular heart beat, NOTES high cholesterol, denies poor circulation, denies heart failure, other cardiac issues, denies claudication, denies cold feet, denies peripheral arterial stent. Respiratory: The patient denies tuberculosis, denies pneumonia, denies frequent cough, denies pulmonary embolism, denies shortness of breath, and denies coughing up blood. Gastrointestinal: The patient denies difficulty swallowing, NOTES acid reflux, denies ulcers, denies vomiting, denies jaundice/hepatitis, denies gallbladder problems, denies black or tarry stools, denies hemorrhoids, denies bleeding from rectum, denies diverticulitis, denies constipation, NOTES diarrhea, denies loss of stool control, and NOTES hernias. Kidney/Bladder: The patient denies kidney stones, denies urine infections, and denies bloody urine. Skin: The patient NOTES a history of skin cancer, denies bleeding/changing moles, and denies a history of skin rash. Neurologic: The patient denies a history of epilepsy/convulsions, denies headaches, denies head/spinal injuries, and denies stroke/TIA. Psychiatric: The patient denies psychiatric medications, denies depression, and denies voices, denies substance abuse. Endocrine: The patient denies thyroid disorders, denies diabetes, and denies hormonal problems. Hematologic: The patient denies a history of bruising, denies bleeding, and denies anemia, denies blood clots. Infections: The patient denies a history of measles and mumps, denies rheumatic fever, and denies sexually transmitted diseases. Musculoskeletal: The patient denies back pain/injury, denies back problems, denies sciatica, deniesknee/foot trouble, NOTES arthritis, or denies gout. When was patient's last Mammogram screening? 2017 Last Colonoscopy: 2020 Shirley Jones LPN documented in this encounterGood [facility]11-30-2023 Consult note Author Noemí Carlisle [facility] April 13, 2023 12:17pm Note Date/Time April 13, 2023 12:17pm [facility] Medical Records Department [address] [place] [address] Counseling Note - Pharmacy 04/13/23 1217 MR#: [id number] Acct: [id number] Name: GABRIELA RAMON Rep #:[id number] : 1940 82 From: Noemí Carlisle PCP: DONNA AdkinsC Status:ADM PRESTON Y Location: [place] [address] Pharmacy [facility] has performed discharge medication reconciliation and counseling for this patient. The patient was counseled on the following discharge medications and changes in medications for homegoing were reviewed. 1. ELIQUIS 2. MACROBID --> PT TO STOP BACTRIM 3. POTASSIUM CHLORIDE TABLET The Reason for Use, instructions for use, and potential side effects were reviewed for all new medications. The patient's questions regarding all of their medications were answered. The patient was able to verbally demonstrate an understanding of their dischargemedications. The patient's discharge medication list was reviewed for discrepancies and discrepancies were resolved. Medications at Discharge Home Medications isosorbide mononitrate 60 mg tablet,extended release 24 hr 60 mg PO DAILY chest pain 07/09/16 amlodipine 10 mg tablet 10 mg PO DAILY blood pressure 12/10/16 benazepril 40 mg tablet 40 mg PO DAILY blood pressure 12/10/16 simvastatin 20 mg tablet 20 mg PO QHS cholesterol 12/10/16 calcium carbonate 500 mg calcium (1,250 mg) tablet (Calcium 500) 500 mg PO BID Supplement 08/25/20 zinc gluconate 50 mg tablet 50 mg PO DAILY Health maintenence 03/31/21 omeprazole 20 mg capsule,delayed release 20 mg PO BID gerd 06/22/21 acetaminophen 500 mg tablet 1,000 mg (2 x 500 mg) PO Q6H PRN PRN Pain Score 1-3 #0 tabs 02/22/22 baclofen 10 mg tablet 10 mg PO BID PRN PRN Muscle Spasm 04/12/23 metoprolol succinate 50 mg tablet,extended release 24 hr See Rx Instructions .Route .COMPLEX 04/12/23 niacinamide 500 mg tablet 500 mg PO DAILY 04/12/23 oxycodone-acetaminophen 5 mg-325 mg tablet 1 tab PO BID PRN PRN pain 04/12/23 apixaban 5 mg (74 tabs) tablets in a dose pack (Eliquis DVT-PE Treat 30D Start) 5 mg PO BID #74 tabs 04/13/23 furosemide 40 mg tablet 40 mg PO DAILY swelling #30 tabs 04/13/23 nitrofurantoin monohydrate/macrocrystals 100 mg capsule 100 mg PO BIDCM #8 caps 04/13/23 potassium chloride 20 mEq tablet,extended release 20 meq PO DAILY #30 tabs 04/13/23 04/13/23 1217 <Electronically signed by Noemí Carlisle > Date _ Noemí Carlisle Cosigner Signature (if applicable): Date CC: ~ Signed [facility] Work Phone: 1(863) 715-635211-30-2023 Discharge summary Author Nella [facility] April 13, 2023 11:52am Note Date/Time April 13, 2023 11:52am [facility] Medical Records Department [address] [place] [id number] Instructions for Home/Discharge Instructions 04/13/23 1152 MR#: [id number] Acct: [id number] Name: GABRIELA RAMON Rep #:[id number] : 1940 82 From: Nella Gomes MD PCP: TAMMY Adkins Status:ADM PRESTON Discharge Instructions Diet Discharge Diet: Low fat / Low cholesterol Activity Discharge Activity: Return to Normal Activity Weight Bearing Status: Weight bearing as tolerated Dressing / Incision Call your doctor if you observe: Fever of 101 or Higher, Shortness of breath, Dizziness, Swelling in the ankles, Chest pain and Increased palpitations (irregular heartbeat) Follow Up Care Test Results: Test results from this visit will be discussed in further detail at your follow- up appointment, if applicable. Discharge Plan Admission Admit Date/Time: 04/12/23 10:37 Primary Reason for Your Visit: shortness of breath Attending Provider: Nella Gomes Primary Care Provider: Noemí Gonzales Instructions Patient Instructions: ED Dyspnea Discharge Orders/Prescriptions Prescriptions: New nitrofurantoin monohyd/m-cryst 100 mg Capsule 100 mg PO BIDCM Qty: 8 0RF potassium chloride 20 mEq tablet extended release 20 meq PO DAILY Qty: 30 0RF Eliquis DVT-PE Treat 30D Start 5 mg (74 tabs) tablets,dose pack 5 mg PO BID Qty: 74 2RF Rx Instructions: Take 2 tabs (10mg) twice daily for 7 days, then continue with one tablet (5mg) twice daily Continued calcium carbonate [Calcium 500] 500 mg calcium (1,250 mg) tablet 500 mg PO BID zinc gluconate 50 mg tablet 50 mg PO DAILY omeprazole 20 mg capsule,delayed release(DR/EC) 20 mg PO BID isosorbide mononitrate 60 MG tablet extended release 24 hr 60 mg PO DAILY amlodipine 10 MG tablet 10 mg PO DAILY Patient Comments: simvastatin 20 MG tablet 20 mg PO QHS benazepril 40 MG tablet 40 mg PO DAILY Patient Comments: acetaminophen 500 mg Tablet 1,000 mg PO Q6H PRN PRN (Reason: Pain Score 1-3) Qty: 0 0RF baclofen 10 mg Tablet 10 mg PO BID PRN PRN (Reason: Muscle Spasm) oxycodone-acetaminophen 5-325 mg tablet 1 tab PO BID PRN PRN (Reason: pain) metoprolol succinate 50 mg tablet extended release 24 hr See Rx Instructions .ROUTE .COMPLEX Rx Instructions: pt takes 50mg po q HS (unable to get this added into computer except under complex gibson niacinamide 500 mg tablet 500 mg PO DAILY Changed furosemide 40 mg tablet 40 mg PO DAILY Qty: 30 2RF Discontinued celecoxib [Celebrex] 200 mg capsule 200 mg PO DAILY sulfamethoxazole-trimethoprim [Bactrim] 400-80 mg tablet 1 tab PO BID Referrals / Follow Up: Noemí Gonzales NP-C [Primary Care Provider] - Within 2 Weeks Disposition Disposition (needs filled in before D/C Order can be placed): Home, Self Care 04/13/23 1152<Electronically signed by Nella Gomes MD>Nella Gomes MD CC: TAMMY Gonzales ~ Signed [facility] Work Phone: 1(612) 546-990211-30-2023 Discharge summary Author Nella [facility] April 13, 2023 2:45pm Note Date/Time April 13, 2023 11:52am [facility] Medical Records Department [address] [place] [address] Discharge Summary 04/13/23 1152 MR#: [id number] Acct: [id number] Name: GABRIELA RAMON Rep #:[id number] : 1940 82 From: Nella Gomes MD PCP: TAMMY Adkins Status:ADM PRESTON Location: [place] [address] Providers Date of Admission: 04/12/23 Date of Discharge: 04/13/23 Primary Care Physician: TAMMY Adkins Reason For Visit: HYPOXIA Diagnosis Discharge Diagnosis (1) Left leg DVT: Status: Acute Code(s): I82.402 - Acute embolism and thrombosis of unspecified deep veins of left lower extremity (2) Hypoxia: Status: Acute Code(s): R09.02 - Hypoxemia (3) Bronchitis: Status: Acute Code(s): J40 - Bronchitis, not specified as acute or chronic Plan #Hypoxia * Likely due to heart failure. BNP is elevated at 270. Chest CT showed minimal interlobular septal thickening in the lower lobes which may represent pulmonary interstitial edema and small defined multifocal peripheral groundglass opacities rather than pulmonary nodules in the lower lobes. * WBC elevated at 14 but I do not see any evidence of pneumonia. * COVID and flu test negative. Will check respiratory panel also. * Confirmatory COVID PCR was also negative. * Will diurese with IV Lasix 40 mg daily. 2D echo was ordered which showed EF of 65% with stage I diastolic dysfunction and RVSP of 38 mmHg. * Monitor intake and output. Fluid restriction to 1500 cc daily. * Breathing treatments and bronchodilators. Titrate oxygen to maintain saturation above 90%. 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 Will place on subcu Lovenox therapeutic dose. * #Recent UTI * Has been treated for UTI on outpatient basis and currently on Bactrim. Urine culture from 04/10/2023 grew staph hemolyticus; growth was not heavy. Sensitive to nitrofurantoin so placed patient on p.o. nitrofurantoin #Hypertension: On amlodipine and benazepril. Also on metoprolol DVT prophylaxis: Not indicated as patient is on subcu Lovenox with treatment forDVT. CODE STATUS: Full code * Patient counseled extensively about different types of CODE STATUS including full code, DNR CCA and DNR CCA. Patient elects to be full code. Total [id number] time 16 minutes. # Medications at Discharge Home Medications isosorbide mononitrate 60 mg tablet,extended release 24 hr 60 mg PO DAILY chest pain 07/09/16 amlodipine 10 mg tablet 10 mg PO DAILY blood pressure 12/10/16 benazepril 40 mg tablet 40 mg PO DAILY blood pressure 12/10/16 simvastatin 20 mg tablet 20 mg PO QHS cholesterol 12/10/16 calcium carbonate 500 mg calcium (1,250 mg) tablet (Calcium 500) 500 mg PO BID Supplement 08/25/20 zinc gluconate 50 mg tablet 50 mg PO DAILY Health maintenence 03/31/21 omeprazole 20 mg capsule,delayed release 20 mg PO BID gerd 06/22/21 acetaminophen 500 mg tablet 1,000 mg (2 x 500 mg) PO Q6H PRN PRN Pain Score 1-3 #0 tabs 02/22/22 baclofen 10 mg tablet 10 mg PO BID PRN PRN Muscle Spasm 04/12/23 metoprolol succinate 50 mg tablet,extended release 24 hr See Rx Instructions .Route .COMPLEX 04/12/23 niacinamide 500 mg tablet 500 mg PO DAILY 04/12/23 oxycodone-acetaminophen 5 mg-325 mg tablet 1 tab PO BID PRN PRN pain 04/12/23 apixaban 5 mg (74 tabs) tablets in a dose pack (Eliquis DVT-PE Treat 30D Start) 5 mg PO BID #74 tabs 04/13/23 furosemide 40 mg tablet 40 mg PO DAILY swelling #30 tabs 04/13/23 nitrofurantoin monohydrate/macrocrystals 100 mg capsule 100 mg PO BIDCM #8 caps 04/13/23 potassium chloride 20 mEq tablet,extended release 20 meq PO DAILY #30 tabs 04/13/23 Hospital Course Summary of Care Provided Minutes Spent on Discharge: 55 Hospital Course: GABRIELA RAMON, is a 82 F with an extensive PMH as outlined who presents via the ED on 04/12/2023 with a complaint of shortness of breath. She denied any cough, chest pain, palpitaitons, dizziness, nausea, vomiting or any other symptoms. Review of systems is otherwise negative. SHe had been placed on bactrim the day before admission for UTI, and had been on Keflex for a week prior to that. Vitals in the ED were BP of 155/71, NM of 78, RR of 14 and oxygen sats as 99% onroom air at rest. However, she dropped to 85% with ambulation. CBC showed Hb of 11.5, wbc of 14 and platelets wre 168. D dimer was < 0.27. Chemistry was unremarkable and Urinalysis showed no evidence of UTI. COVID rapid test and Influenza screen was negative. CTA chest showed no evidence of PE but showed mild intrelobular septal thickening in the lowre lobe suspicious for pulmonary interstitial edema and new small multifocal peripheral groundglass opacities/nodules in the lower lobes which may be inflammatory. DVT of the lowerextremities showed soleous DVT. She was admitted to be managed for hypoxia of unclear etiology as well as DVT of lower extremity. BNP was also mildly elevated and so was thought that his symptoms were likely due to heart failure exacerbation with unknown EF. She was diuresed with IV Lasix and started on therapeutic Lovenox. 2D echo done showed EF of 65% with stage I diastolic dysfunction. Her shortness of breath improved and she felt much better. She remained on room air. Her urine cultures had grown positive for staph hemolyticus. This was sensitive to nitrofurantoin so she was placed on nitrofurantoin. Patient's shortness of breath resolved and she felt much better. She was discharged home on 04/13/2023 on p.o. Lasix 40 mg daily with p.o. potassium supplementation. She was also discharged on treatment dose for Eliquis for treatment of DVT. She is follow-up with her primary care doctor within 1 to 2 weeks. Patient seen and examined prior to discharge. She had no complaints and had an uneventful night. Review of systems otherwise negative. Labs and vitals reviewed. Home medication reviewed and reconciled. Physical Exam Const alert, oriented x3, no apparent distress and well nourished General Appearance: cooperative, comfortable and well developed HEENT normocephalic, head/scalp atraumatic, hearing grossly normal bilaterally and moist oral mucous membranes Mouth: oral and palatal mucosa normal Eyes PERRL and EOMs intact bilaterally Neck no lymphadenopathy, supple and no JVD Lymph Lymphatic: no lymphadenopathy noted and no lymphedema noted Resp Resp Narrative: Mildly diminished breath sounds bibasilarly. No wheezes or crackles. On room air. Cardio regular rate, regular rhythm, S1 normal heart sound, S2 normal heart sound and no murmurs GI normal to inspection, nondistended, normoactive bowel sounds, soft to palpation,non-tender and non-distended Extremity normal to inspection, full ROM, normal capillary refill, no clubbing, cyanosis or edema and no calf tenderness General Extremity: no tenderness to palpation of joints or extremities Skin no rashes or lesions noted General Skin Exam: no breakdown Neuro oriented x3, CN's II-XII intact bilaterally, moves all extremities, no focal motor deficits, no sensory deficits noted and deep tendon reflexes 2+ bilaterally Sensorium / Orientation: awake Motor Exam: strength 5/5 throughout Psych thought process normal, cooperative and affect normal Appearance: appropriate Weight / BMI Weight Weight: 162 lb 14.746 oz Body Mass Index (BMI) 29.7 ABG / Lab / Microbiology Data 04/13/23 05:50 04/13/23 05:50 Laboratory: Laboratory Results - last 24 hr 04/12/23 07:20: B-Natriuretic Peptide 230.2 H 04/13/23 05:50: WBC 7.1, RBC 3.88 L, Hgb 10.6 L, Hct 34.4 L, MCV 88.7, MCH 27.3,MCHC 30.8 L, RDW Std Deviation 53.9 H, RDW Coeff of [place] 16.5 H, Plt Count 160, MPV 9.2, Immature Gran % (Auto) 0.300, Neut % (Auto) 77.2 H, Lymph % (Auto) 11.2L, [place] % (Auto) 7.4, Eos % (Auto) 3.8, Baso % (Auto) 0.1, Absolute Neuts (auto)5.5, Absolute Lymphs (auto) 0.80 L, Nucleated RBC % 0, Sodium 140, Potassium 3.5, Chloride 108 H, Carbon Dioxide 30.0, Anion Gap 2 L, BUN 12, Creatinine 0.99, Estim Creat Clear Calc 34.65, Est GFR (MDRD) Af Amer 69, Est GFR (MDRD) Non-Af 57 L, BUN/Creatinine Ratio 12.1, Glucose 121 H, Calcium 8.9 Microbiology: Microbiology 04/12/23 10:23 Mucosa - Nose Coronavirus COVID-19 PCR - Final 04/12/23 07:20 Nasal Secretion SARS-CoV-2 & FLU Antigen (Rapid) - Final Radiography Diagnostic Testing: Radiology Impression Venous Doppler Study 04/12/23 08:44 Interpretation Summary There is no evidence of right lower extremity deep vein thrombosis. Left popliteal fossa 0.81 x 2.96 cm none vascular structure location junior consistent with a Lundberg's cyst. Clinical correlation would be appropriate Acute deep venous thrombosis left soleus vein Patent and compressible bilateral great saphenous vein Ordering Physician: Kirill Johansen Referring Physician: Noemí Gonzales Performed By: Elizabeth Schroeder RVT Echocardiogram 04/12/23 12:40 Interpretation Summary Normal LV size. Left ventricular systolic function is normal. The estimated ejection fraction is 65 %. Stage 1 diastolic dysfunction. Pulmonary artery systolic pressure is 38 mmHg. There is mild to moderate mitral annular calcification. Ordering Physician: Nella Gomes Referring Physician: Noemí Gonzales Performed By: Noemí Barone RDCS, RVT D/C Instructions Discharge Diet: Low fat / Low cholesterol Discharge Activity: Return to Normal Activity Weight Bearing Status: Weight bearing as tolerated Call your doctor if you observe: Fever of 101 or Higher, Shortness of breath, Dizziness, Swelling in the ankles, Chest pain and Increased palpitations (irregular heartbeat) Meaningful Use Info Meaningful Use Diagnoses (Choose all that apply): CHF CHF MICHELLE/ARB ordered at discharge?: No Reason MICHELLE/ARB not ordered?: Not indicated Documented LVEF (%): 65 Discharge Plan Admission Admit Date/Time: 04/12/23 10:37 Primary Reason for Your Visit: shortness of breath Attending Provider: Nella Gomes Primary Care Provider: Noemí Gonzales Instructions Patient Instructions: ED Dyspnea Discharge Orders/Prescriptions Prescriptions: New nitrofurantoin monohyd/m-cryst 100 mg Capsule 100 mg PO BIDCM Qty: 8 0RF potassium chloride 20 mEq tablet extended release 20 meq PO DAILY Qty: 30 0RF Eliquis DVT-PE Treat 30D Start 5 mg (74 tabs) tablets,dose pack 5 mg PO BID Qty: 74 2RF Rx Instructions: Take 2 tabs (10mg) twice daily for 7 days, then continue with one tablet (5mg) twice daily Continued calcium carbonate [Calcium 500] 500 mg calcium (1,250 mg) tablet 500 mg PO BID zinc gluconate 50 mg tablet 50 mg PO DAILY omeprazole 20 mg capsule,delayed release(DR/EC) 20 mg PO BID isosorbide mononitrate 60 MG tablet extended release 24 hr 60 mg PO DAILY amlodipine 10 MG tablet 10 mg PO DAILY Patient Comments: simvastatin 20 MG tablet 20 mg PO QHS benazepril 40 MG tablet 40 mg PO DAILY Patient Comments: acetaminophen 500 mg Tablet 1,000 mg PO Q6H PRN PRN (Reason: Pain Score 1-3) Qty: 0 0RF baclofen 10 mg Tablet 10 mg PO BID PRN PRN (Reason: Muscle Spasm) oxycodone-acetaminophen 5-325 mg tablet 1 tab PO BID PRN PRN (Reason: pain) metoprolol succinate 50 mg tablet extended release 24 hr See Rx Instructions .ROUTE .COMPLEX Rx Instructions: pt takes 50mg po q HS (unable to get this added into computer except under complex gibson niacinamide 500 mg tablet 500 mg PO DAILY Changed furosemide 40 mg tablet 40 mg PO DAILY Qty: 30 2RF Discontinued celecoxib [Celebrex] 200 mg capsule 200 mg PO DAILY sulfamethoxazole-trimethoprim [Bactrim] 400-80 mg tablet 1 tab PO BID Referrals / Follow Up: Noemí Gonzales, [employer] [Primary Care Provider] - Within 2 Weeks Disposition Disposition (needs filled in before D/C Order can be placed): Home, Self Care Charges/Coding Visit Charges Inpatient E&M: 88216 Disch Hosp >30min 04/13/23 1445 <Electronically signed by Nella Gomes MD> Cosigner Signature (if applicable): CC: [employer] Noemí Gonzales; Dr. Nella Gomes MD~ Signed [facility] Work Phone: [phone] Discharge summary Author Kirill Johansen [facility] April 12, 2023 2:17pm Note Date/Time April 12, 2023 7:02am [facility] Medical Records Department [address] [place] [address] Emergency Department Summary 04/12/23 MR#: [id number] Acct: [id number] Name: GABRIELA RAMON Rep #:[id number] : 1940 82 From: Kirill Coppola PCP: TAMMY Adkins Status:ADM [facility] Location: [address] History of Present Illness Chief Complaint: Shortness of Breath Informant: patient and friend Narrative Narrative: Increasing to the since yesterday. Started on Bactrim yesterday status post 2 doses for UTI symptoms. Prior to that was on a week of cephalexin. No vomitingor diarrhea. No fevers. 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 Denies fevers chills myalgias or headache. Denies sick contacts. Denies asthma or COPD. PFSH PFS Medical History Abnormal mammogram of left breast Arthritis Atherosclerotic heart disease of [place] coronary artery without angina pectoris Cancer Chronic back pain Chronic obstructive pulmonary disease Debility Deep vein thrombosis of left lower extremity (04/2020) Dislocation of left ankle joint Edema Essential hypertension Former smoker Gastroesophageal reflux disease Gout Hemorrhoids Hyperlipidemia Hypokalemia Hypomagnesemia Knee pain, bilateral Left renal atrophy Muscle spasm Neck pain Osteoarthritis Rectal prolapse Renal calculi Secondary pulmonary arterial hypertension Sleep apnea Wears glasses Home Medications isosorbide mononitrate 60 mg tablet,extended release 24 hr 60 mg PO DAILY chest pain 07/09/16 [History Last Taken 04/12/23] amlodipine 10 mg tablet 10 mg PO DAILY blood pressure 12/10/16 [History Last Taken 04/12/23] benazepril 40 mg tablet 40 mg PO DAILY blood pressure 12/10/16 [History Last Taken 04/12/23] simvastatin 20 mg tablet 20 mg PO QHS cholesterol 12/10/16 [History Last Taken 04/11/23] calcium carbonate 500 mg calcium (1,250 mg) tablet (Calcium 500) 500 mg PO BID Supplement 08/25/20 [History Last Taken 04/12/23] zinc gluconate 50 mg tablet 50 mg PO DAILY Health maintenence 03/31/21 [History Last Taken 04/12/23] omeprazole 20 mg capsule,delayed release 20 mg PO BID gerd 06/22/21 [History Last Taken 04/12/23] acetaminophen 500 mg tablet 1,000 mg (2 x 500 mg) PO Q6H PRN PRN Pain Score 1-3 #0 tabs 02/22/22 [Rx Last Taken Unknown] celecoxib 200 mg capsule (Celebrex) 200 mg PO DAILY 08/11/22 [History Last Taken 04/12/23] baclofen 10 mg tablet 10 mg PO BID PRN PRN Muscle Spasm 04/12/23 [History Last Taken Unknown] furosemide 40 mg tablet 40 mg PO DAILY PRN swelling 04/12/23 [History Last Taken Unknown] metoprolol succinate 50 mg tablet,extended release 24 hr See Rx Instructions .Route .COMPLEX 04/12/23 [History Last Taken Unknown] niacinamide 500 mg tablet 500 mg PO DAILY 04/12/23 [History Last Taken Unknown] oxycodone-acetaminophen 5 mg-325 mg tablet 1 tab PO BID PRN PRN pain 04/12/23 [History Last Taken Unknown] sulfamethoxazole 400 mg-trimethoprim 80 mg tablet (Bactrim) 1 tab PO BID 04/12/23 [History Last Taken 04/12/23] Allergy/AdvReac Type Severity Reaction Status Date / Time No Known Allergies Allergy Verified 04/03/23 13:00 Family History Grandmother Breast cancer Surgical History H/O parathyroidectomy (2011) History of ankle surgery History of coronary artery stent placement (09/09/03) History of coronary artery stent placement History of esophagogastroduodenoscopy (EGD) (02/11/22) History of herniorrhaphy 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) History of open reduction and internal fixation (ORIF) procedure (03/2020) History of tonsillectomy and adenoidectomy History of wisdom tooth extraction Social History household members: none housing: [facility] current occupational status: retired pets and animals: Yes (dog) Smoking Status: Former smoker alcohol intake: current caffeine: Yes ROS ROS ED Constitutional Constitutional ED: Denies chills, fever(s) or sweats Eyes Eyes: Denies change in vision ENT ENT ED: Denies dysphagia or sore throat Cardiovascular Cardiovascular: Denies chest pain, leg edema, palpitations or racing heartbeat Respiratory/Chest Respiratory/Chest: Reports dyspnea; Denies cough or dyspnea on exertion Gastrointestinal Gastrointestinal: Reports nausea; Denies abdominal pain, diarrhea or vomiting Genitourinary Genitourinary ED: Reports urinary frequency; Denies dysuria or hematuria Musculoskeletal Musculoskeletal: Denies back pain, extremity pain or neck pain Integumentary Denies rash or wounds Neurologic Neurologic: Denies headache(s), paresthesias or weakness EXAM Physical Exam Const Vital Signs: 04/12/23 06:45 04/12/23 08:53 04/12/23 08:55 Temperature 97.8 F Temperature Source Temporal Pulse Rate 111 H 104 H Respiratory Rate 22 H 20 H Respiratory Effort Short of Breath Respiratory Depth Normal Respiratory Pattern Tachypnea Blood Pressure 138/74 H 156/82 H Blood Pressure Mean 95 106 Pulse Ox 97 94 Oxygen Delivery Method Room Air Room Air Room Air 04/12/23 10:15 Temperature Temperature Source Pulse Rate 78 Respiratory Rate 14 Respiratory Effort Respiratory Depth Respiratory Pattern Blood Pressure 155/71 H Blood Pressure Mean 99 Pulse Ox 99 Oxygen Delivery Method Room Air Positive well nourished and well developed General Appearance ED: well developed and NAD HEENT Reports dry mucous membranes normocephalic and atraumatic Mouth ED: Yes dry mucous membranes Mouth: dry mucous membranes Eyes PERRL, EOMs intact bilaterally and conjunctivae normal General Eye ED: Yes normal appearance of both eyes Neck no lymphadenopathy and supple General: Negative for tenderness Chest Wall Chest: Negative for tenderness Resp normal respiratory effort and normal air movement Effort and Inspection: symmetric chest movement; Negative for respiratory distress Cardio regular rhythm and no murmurs Rate: tachycardic Peripheral Pulses: pulses 2+ throughout GI normal to inspection, nondistended, normoactive bowel sounds and non-tender Palpation: Negative for guarding or rebound tenderness present Back/Spine no CVA tenderness and no thoracic nor lumbar tenderness Extremity normal to inspection General Extremety ED: Negative for edema or tenderness General Extremity: Negative for edema Neuro oriented x3 and no sensory deficits noted Sensorium / Orientation: awake and alert Skin no rashes or lesions noted and no wounds MDM MDM MDM Narrative Medical decision making narrative: Interventions / MDM: Differential diagnosis: Bronchitis, hypoxia, DVT Diagnosis considered but do not suspect: Pulmonary embolism however CTA chest negative. My EKG interpretation: Sinus rate of 107, no ST or T wave changes. Imaging independently reviewed and interpreted by myself: 2 view chest x-ray: Noacute process; CTA chest: No PE, groundglass changes. External documents reviewed: Test considered but not ordered:N/A ED course: Patient tachycardic and slight tachypnea. She is not hypoxic at rest. Denies cough symptoms. Recent travel by plane a month ago to [place]. No leg swelling or cramping. EKG with sinus tachycardia. Basic labs and D-dimer obtained due to low risk Wells criteria for PE. She is given fluids for the tachycardia. 2 view chest x-ray shows no acute process. Rapid COVID-negative. 0840: Per nursing patient ambulated to the restroom scantly short of breath became tachycardic and hypoxic 85%. Two-view chest x-ray was interpreted by myself showing no acute process. Her D-dimer was pending. Her COVID and flu were negative. She did have recent travel now having increasing exertional symptoms. Her creatinine is normal. Discussed further evaluation with CT angiogram to rule out PE. This was ordered. DVT studies obtain bilateral lowerextremity had a left soleus DVT. CT scan negative for PE however groundglass appearance was noted. With these findings COVID PCR was sent for further evaluation. She is covered with Lovenoxtherapeutic at 1 mg/kg. 1030: With exertional hypoxia she required admission. She felt better on oxygen. I spoke with hospitalist Dr. Gomes for admission pending PCR results. Re-evaluation: stable Disposition discussed with patient/family/significant other: Patient Case discussed with consulting clinician: Hospitalist This note was generated with [employer] dictation software. It may contain incorrectwords, spelling, and punctuation that were not noted in checking the note beforesigning. Lab Data Attestation: I reviewed the patient's lab results. Labs: Laboratory Results - last 24 hr 04/12/23 04/12/23 07:20 08:40 WBC 14.0 H RBC 4.24 Hgb 11.5 L Hct 37.2 MCV 87.7 MCH 27.1 MCHC 30.9 L RDW Std Deviation 52.5 H RDW Coeff of [place] 16.3 H Plt Count 168 MPV 8.7 Immature Gran % (Auto) 0.500 Neut % (Auto) 90.4 H Lymph % (Auto) 2.4 L [place] % (Auto) 4.8 Eos % (Auto) 1.8 Baso % (Auto) 0.1 Absolute Neuts (auto) 12.7 H Absolute Lymphs (auto) 0.34 L Nucleated RBC % 0 Differential Comment SCANNED PT 12.9 INR 1.0 APTT 41.2 H D-Dimer Quant (PE/DVT) < 0.27 L Sodium 139 Potassium 3.8 Chloride 110 H Carbon Dioxide 24.0 Anion Gap 5 BUN 15 Creatinine 0.92 Estim Creat Clear Calc 37.29 Est GFR (MDRD) Af Amer 75 Est GFR (MDRD) Non-Af 62 BUN/Creatinine Ratio 16.3 Glucose 154 H Calcium 9.2 B-Natriuretic Peptide 230.2 H Urine Color Yellow Urine Clarity Clear Urine pH 6.5 Ur Specific [place] 1.010 Urine Protein 30 H Urine Glucose (UA) Normal Urine Ketones Negative Urine Occult Blood Negative Urine Nitrite Negative Urine Bilirubin Negative Urine Urobilinogen Normal Ur Leukocyte Esterase Negative Urine RBC 0 SEEN Urine WBC 0 SEEN Ur Squamous Epith Cells 0 SEEN Urine Bacteria 0 SEEN Urine Mucus 0 SEEN Radiography Diagnostic Testing: Clinical Impression(s) from Imaging Studies Chest X-Ray 04/12/23 07:00 IMPRESSION: No acute cardiopulmonary pathology and unchanged when compared to 02/09/2022. Electronically Signed: Doroteo Parra MD at 9:01 EST , Chest CTA 04/12/23 08:43 IMPRESSION: 1. No CTA evidence of pulmonary thromboemboli, thoracic aortic aneurysm or dissection. 2. Mild interlobular septal thickening in the lower lobe suspicious pulmonary interstitial edema. 3. New small multifocal peripheral groundglass opacities/nodules in the lower lobes may be inflammatory. Small subcentimeter solid pulmonary nodules in the lower lobes were present previously and are unchanged. Follow-up CT chest in one month will help clarify. 4. Resolution of the multiple large left renal cysts may be secondary to left nephrectomy. Please correlate with operative history. Electronically Signed: Doroteo Parra MD at 9:51 EST , Venous Doppler Study 04/12/23 08:44 Interpretation Summary There is no evidence of right lower extremity deep vein thrombosis. Left popliteal fossa 0.81 x 2.96 cm none vascular structure location junior consistent with a Lundberg's cyst. Clinical correlation would be appropriate Acute deep venous thrombosis left soleus vein Patent and compressible bilateral great saphenous vein Ordering Physician: Kirill Johansen Referring Physician: Noemí Gonzales Performed By: Elizabeth Schroeder RVT Discharge Plan Dx/Rx/DC Orders Clinical Impression: Acute dyspnea, Left leg DVT, Hypoxia, Bronchitis Disposition Disposition: Acute Care Hospital [facility] Discharge Date/Time: 04/12/23 12:25 What to do if you have Problems For any increased pain, shortness of breath, bleeding, nausea or vomiting, chestpain, or any unexpected problems, contact your Primary Care Provider. Call [facility] ([phone]) or report to the closest Emergency Room. Call 911 if necessary. 04/12/23 1417 <Electronically signed by Kirill Coppola> Cosigner Signature (if applicable): CC: TAMMY Gonzales ~ Signed [facility] Work Phone: [phone]) 986-537007-23-2023 Discharge summary Author Mickey Hdez [facility] December 04, 2022 3:38pm Note Date/Time December 04, 2022 3:14 pm [facility] Medical Records Department [address] [place] [address] Emergency Department Summary 12/04/22 MR#: [id number] Acct: [id number] Name: GABRIELA RAMON Rep #:[id number] : 1940 82 From: Mickey Hdez DO PCP: Dr. Stephanie Partida DO Status:REG ER Location: ED HPI History of Present Illness Chief Complaint: Back Narrative Narrative: 82-year-old female presenting with neck pain. States that she has chronic neck and back pain. She sees Dr. Rodarte. She is scheduled for some injections at [place] upcoming. She states she was not doing anything particular a she started to have arm pain. This appeared to go up one arm and down the other butshe states that does not radiate from the neck. This is in the medial aspects of the arms bilaterally into the pinkies. Denies any new trauma. She states that the pain is actually improved since then. No chest pain or shortness of breath. No dizziness or lightheadedness. No nausea or vomiting. [facility] Medical History Abnormal mammogram of left breast Arthritis Atherosclerotic heart disease of [place] coronary artery without angina pectoris Cancer Chronic back pain Chronic obstructive pulmonary disease Debility Deep vein thrombosis of left lower extremity (04/2020) Dislocation of left ankle joint Edema Essential hypertension Former smoker Gastroesophageal reflux disease Gout Hemorrhoids Hyperlipidemia Hypokalemia Hypomagnesemia Knee pain, bilateral Left renal atrophy Muscle spasm Neck pain Osteoarthritis Rectal prolapse Renal calculi Secondary pulmonary arterial hypertension Sleep apnea Wears glasses Home Medications isosorbide mononitrate 60 mg tablet,extended release 24 hr 60 mg PO DAILY chest pain 07/09/16 [History Last Taken 03/29/22] amlodipine 10 mg tablet 10 mg PO DAILY blood pressure 12/10/16 [History Last Taken 03/30/22] benazepril 40 mg tablet 40 mg PO DAILY blood pressure 12/10/16 [History Last Taken 03/30/22] simvastatin 20 mg tablet 20 mg PO QHS cholesterol 12/10/16 [History Last Taken 03/29/22] calcium carbonate 500 mg calcium (1,250 mg) tablet (Calcium 500) 1,200 mg PO BIDSupplement 08/25/20 [History Last Taken 03/29/22] zinc gluconate 50 mg tablet 50 mg PO DAILY [facility] 03/31/21 [History Last Taken 03/29/22] omeprazole 20 mg capsule,delayed release 20 mg PO BID gerd 06/22/21 [History Last Taken 03/30/22] acetaminophen 500 mg tablet 1,000 mg (2 x 500 mg) PO Q6H PRN PRN Pain Score 1-3 #0 tabs 02/22/22 [Rx Last Taken Unknown] baclofen 10 mg tablet 10 mg PO TID PRN PRN Muscle Spasm #0 tabs 02/22/22 [Rx Last Taken 03/28/22] oxycodone-acetaminophen 5 mg-325 mg tablet 1 tab PO Q6H PRN pain 7 days #14 tabs105/30/21 [Rx Last Taken Unknown] celecoxib 200 mg capsule (Celebrex) 200 mg PO DAILY 08/11/22 [History Last Taken Unknown] furosemide 20 mg tablet 20 mg PO .3xw Check with primary doctor 08/11/22 [History Last Taken Unknown] metoprolol succinate 50 mg tablet,extended release 24 hr See Rx Instructions .Route .COMPLEX #180 tabs 08/22/22 [Rx Last Taken Unknown] Allergy/AdvReac Type Severity Reaction Status Date / Time No Known Allergies Allergy Verified 12/04/22 14:25 Family History Grandmother Breast cancer Surgical History H/O parathyroidectomy (2011) History of ankle surgery History of coronary artery stent placement (09/09/03) History of coronary artery stent placement History of esophagogastroduodenoscopy (EGD) (02/11/22) History of herniorrhaphy 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) History of open reduction and internal fixation (ORIF) procedure (03/2020) History of tonsillectomy and adenoidectomy History of wisdom tooth extraction Social History household members: none housing: [facility] current occupational status: retired pets and animals: Yes (dog) Smoking Status: Former smoker alcohol intake: current caffeine: Yes ROS ROS ED Constitutional Constitutional ED: Denies chills, fever(s) or sweats Eyes Eyes: Denies blurry vision or change in vision ENT ENT ED: Denies ear pain or sore throat Cardiovascular Cardiovascular: Denies chest pain, palpitations or racing heartbeat Respiratory/Chest Respiratory/Chest: Denies cough, dyspnea or sputum Gastrointestinal Gastrointestinal: Denies abdominal pain, constipation, diarrhea, nausea or vomiting Genitourinary Genitourinary ED: Denies dysuria, hematuria or urinary frequency Musculoskeletal Musculoskeletal: Reports neck pain; Denies arthralgias or myalgias Integumentary Denies abscess, Abrasions or rash Neurologic Neurologic: Denies headache(s), paresthesias or weakness Psychiatric Psychiatric: Denies anxiety, depression, suicidal ideation or suicidal thoughts Endocrine Endocrinology: Denies polydipsia or polyuria EXAM Physical Exam Const Vital Signs: 12/04/22 14:25 Temperature 98.2 F Temperature Source Temporal Pulse Rate 83 Respiratory Rate 18 Blood Pressure 184/78 H Blood Pressure Mean 113 Pulse Ox 99 Oxygen Delivery Method Room Air Positive well nourished General Appearance ED: NAD HEENT Reports moist mucous membranes Eyes PERRL Resp normal respiratory effort Cardio regular rate and regular rhythm Back/Spine Cervical Spine: cervical spine tenderness Cervical Spine Tenderness Details: C7 and T1 Extremity normal to inspection Neuro oriented x3 and no sensory deficits noted Sensorium / Orientation: alert Motor Exam: strength 5/5 throughout Psych mental status grossly normal Skin no rashes or lesions noted MDM MDM MDM Narrative Medical decision making narrative: 82-year-old female with neck pain and radiation to the pain to the bilateral pinkies which has gotten better. She declined analgesia.. Vital signs are stable she is afebrile. Chest tenderness to lower cervical spine. I did obtaina CT scan of the cervical spine this is negative for acute findings. Does show some degenerative disc disease. Patient counseled on this. Recommend she follow-up with Dr. Rodarte and her primary care doctor. Impression: 1. Cervical radiculopathy Radiography Diagnostic Testing: Clinical Impression(s) from Imaging Studies Cervical Spine CT 12/04/22 14:49 IMPRESSION: Degenerative changes of the cervical spine. There are no acute findings. Electronically Signed: Ender Cool MD at 15:28 EDT Reading Location ID and State: [facility] / OR , Service support , Discharge Plan Triage Chief Complaint: Back Other Complaint: Other, Pain/Inj ED Provider: Mickey Hdez Dx/Rx/DC Orders Instructions: ED Neck Sprain or Strain, ED Radiculopathy, Cervical Prescriptions: No Action calcium carbonate [Calcium 500] 500 mg calcium (1,250 mg) tablet 1,200 mg PO BID zinc gluconate 50 mg tablet 50 mg PO DAILY omeprazole 20 mg capsule,delayed release(DR/EC) 20 mg PO BID celecoxib [Celebrex] 200 mg capsule 200 mg PO DAILY isosorbide mononitrate 60 MG tablet extended release 24 hr 60 mg PO DAILY amlodipine 10 MG tablet 10 mg PO DAILY Patient Comments: simvastatin 20 MG tablet 20 mg PO QHS benazepril 40 MG tablet 40 mg PO DAILY Patient Comments: acetaminophen 500 mg Tablet 1,000 mg PO Q6H PRN PRN (Reason: Pain Score 1-3) Qty: 0 0RF baclofen 10 mg Tablet 10 mg PO TID PRN PRN (Reason: Muscle Spasm) Qty: 0 0RF oxycodone-acetaminophen 5-325 mg tablet 1 tab PO Q6H PRN (Reason: pain) 7 Days Qty: 14 0RF furosemide 20 mg tablet 20 mg PO .3xw Rx Instructions: MWF metoprolol succinate 50 mg tablet extended release 24 hr See Rx Instructions .ROUTE .COMPLEX Qty: 180 3RF Dose Instruction: TAKE 1 TABLET TWICE A DAY Rx Instructions: TAKE 1 TABLET TWICE A DAY Primary Care Provider: Stephanie Partida Referrals: Stephanie Partida DO [Primary Care Provider] - Disposition Disposition: Home, Self Care What to do if you have Problems For any increased pain, shortness of breath, bleeding, nausea or vomiting, chestpain, or any unexpected problems, contact your Primary Care Provider. Call [facility] ([phone]) or report to the closest Emergency Room. Call 911 if necessary. 12/04/22 1538 <Electronically signed by Mickey Hdez DO> Cosigner Signature (if applicable): CC: Dr. Stephanie Partida DO ~ Signed [facility] Work Phone: 1(986) 294-800208-17-2021 NoteHNO ID: [id number] Author: Rohan Redding MD Service: ? Author [...] free to contact our office for an appointment.[facility] 12-29-2020 NoteHNO ID: [id number] Author: Jordyn Deal LPN Service: ? Author [...] HEMATOLOGY: Negative for excessive bleeding, clots, bleeding disorders.[facility]06-15-2021 NoteHNO ID: [id number] Author: Rohan Redding MD Service: ? Author [...] necessary, we can take the screw out. Ohge-ofh-cqixfco pain medication. If she has any questions or concerns prior to her next appointment, she will contact the office. All questions answered.[facility]03-02-2021 NoteHNO ID: [id number] Author: Rohan Redding Service: ? Author Type: [...] significant amount of time to fully resolve. Olsk-tey-gzsnjtk pain medication as necessary. I will see her back in 3 months. If there is any problems prior to next moment, she will contact the office. All questions answered.[facility]03-02-2021 NoteHNO ID: [id number] Author: Josefa Gutierrez) Freida Service: ? Author Type: Wet End Supervisor Type: Progress Notes Filed: 07/14/2020 10:58 AM [...] HEMATOLOGY: Negative for excessive bleeding, clots, bleeding disorders.[facility]01-05-2021 NoteHNO ID: [id number] Author: Rohan Redding Service: ? Author Type: [...] comfortable. A prescription for therapy was provided. Khvy-yvs-jihtmsf pain medication. We discussed her swelling and icing and elevating. Her swelling will last for some time. I will see her back in 6 weeks. She has any questions or concerns prior to next appointment, she will contact the office. All questions answered.[facility] 04-28-2020 NoteHNO ID: [id number] Author: Rohan Redding Service: ? Author Type: [...] repeat x-rays and consider advancing her weightbearing. Bnff-nui-jcmxrjv pain medication. If she has any questions or concerns prior to the next appointment, she will contact the office. All questions answered.[facility]12-08-2020 NoteHNO ID: [id number] Author: Rohan Redding Service: ? Author Type: Physician Type: Progress Notes Filed: 04/21/2020 11:38 AM Note Text: Subjective: The patient returns today follow-up on her open left ankle fracture dislocation. This was surgically repaired on 04/07/2020. Overall doing well. Currently at [facility]. She has been nonweightbearing. Denies fevers [...] will see her back in 1 week. Yuwk-ask-rusvcqq pain medication as necessary. Any problems prior to the next appointment, she will contact the office. All questions answered.[facility]11-27-2020 Note HNO ID: [id number] Author: Bijan Rogers (Pharmacist) Service: Pharmacy Author Type: Pharmacist Type: [...] this time from Discharge Medication List. BIJAN ROGERS, PHARMACIST April 10, 2020 7:19 PM Pager: [phone] 04/10/2020 7:19 PM Medication List CHANGE how [...] EC tablet ? HYDROcodone-acetaminophen 5-325 mg per tablet[facility] 04-10-2020 NoteHNO ID: [id number] Author: Rohan Redding Service: Orthopaedic Surgery Author [...] (Oral) Resp 16 Ht 157.5 cm (5' 2) Wt 85.3 kg (188 lb) SpO2 96% [...] Damion Shay MD Resident, Orthopaedic Surgery Pager: [phone] 04/10/2020 6:41 AM Agree with resident assessment and plan. Episodic pain L ankle. [facility]2020 NoteHNO ID: [id number] Author: Rohan Redding Service: Orthopaedic Surgery Author [...] (Oral) Resp 18 Ht 157.5 cm (5' 2) Wt 85.3 kg (188 lb) SpO2 96% [...] Damion Shay MD Resident, Orthopaedic Surgery Pager: [phone] 04/09/2020 6:55 AM Agree with resident assessment and plan. ASA [facility]-2020 NoteHNO ID: [id number] Author: Rohan Redding Service: Orthopaedic Surgery Author [...] (Oral) Resp 18 Ht 157.5 cm (5' 2) Wt 85.3 kg (188 lb) SpO2 94% [...] appropriate position SIGNATURE: Joe Whitaker MD PAGER: [phone] DATE of SERVICE: 04/08/2020 TIME of SERVICE: 5:59 AM Agree with resident assessment and plan.[facility]11-24-2020 NoteHNO ID: [id number] Author: Aby VillegasRn) CATRACHITO Thompson Service: ? Author Type: Registered Nurse Type: Nursing Progress Note Filed: 04/07/2020 7:12 PM Note Text: X-Rays Left ankle In [facility]11-24-2020 NoteHNO ID: [id number] Author: Lit Valdez Service: ? Author Type: Nurse Academic Affairs Assistant Type: Anesthesia Procedure Notes Filed: 04/07/2020 5:27 PM Note Text: ANESTHESIOLOGY PROCEDURE NOTE Airway General Information Procedure Start Time/Medication Administration: 04/07/2020 5:19 PM Patient location during procedure: OR Consent Obtained: Yes Patient identity confirmed: patient Staffing Anesthesiologist: Jonathan Carlisle RUG CLIPPER: Lit Valdez Performed by: ANNIE Indications and Patient Condition Preoxygenated: yes Patient [...] April 07, 2020 TIME: 5:27 PM CSN: [id number]* Diagnosis Onset Date Resolution Status Rapid palpitations acute Essential hypertension chron ic History of coronary artery stent placement September 09, 2003 chronic Hyperlipidemia [facility] Work Phone: 1(773) 460-288004-27-2004 Evaluation note* Diagnosis Onset Date Resolution Status Essential hypertension chron ic History of coronary artery stent placement September 09, 2003 chronic Hyperlipidemia chronic [facility] Work Phone: 1([phone]) 312-715404-27-2004 Evaluation note* Diagnosis Onset Date Resolution Status Essential hypertension chron ic History of coronary artery stent placement September 09, 2003 chronic Hyperlipidemia chronic UTI (urinary tract infection) acute Acute hypotension acute Complicated urinary tract infection acute Infectious encephalopathy ac knik Sepsis acute UTI (urinary tract infection) acute [facility] Work Phone: [phone]) 119-267304-27-2004 Evaluation note* Diagnosis Onset Date Resolution Status Essential hypertension chron ic History of coronary artery stent placement September 09, 2003 chronic Hyperlipidemia chronic UTI (urinary tract infection) acute Acute hypotension acute Complicated urinary tract infection acute Debility acute Infectious encephalopathy ac knik Pyelonephritis acute Sepsis acute UTI (urinary tract infection) acute [facility] Work Phone: Evaluation note* Diagnosis Onset Date Resolution Status UTI (urinary tract infection) resolved Acute hypotension resolved Complicated urinary tract infection resolved Debility resolved Infectious encephalopathy re solved Pyelonephritis resolved Sepsis resolved UTI (urinary tract infection) resolved [facility] Work Phone: Evaluation note* Diagnosis Onset Date Resolution Status UTI (urinary tract infection) resolved Acute hypotension resolved Complicated urinary tract infection resolved Debility resolved Infectious encephalopathy re solved Pyelonephritis resolved Sepsis resolved UTI (urinary tract infection) resolved Appetite loss acute Coronary artery disease acut e Debility acute Edema acute Fever acute Gastroesophageal reflux disease acute Hyperlipidemia acute Hypokalemia acute Hypomagnesemia acute Muscle spasm acute Nausea & vomiting acute Urinary tract infection acut e Chronic obstructive pulmonary disease chronic Hypertension [facility] Work Phone: Evaluation note* Diagnosis Onset Date Resolution Status UTI (urinary tract infection) resolved Acute hypotension resolved Complicated urinary tract infection resolved Debility resolved Infectious encephalopathy re solved Pyelonephritis resolved Sepsis resolved UTI (urinary tract infection) resolved Anemia acute Appetite loss acute Coronary artery disease acut e Debility acute Edema acute Fever acute Gastroesophageal reflux disease acute Hemorrhoids acute Hyperlipidemia acute Hypokalemia acute Hypomagnesemia acute Lower GI bleeding acute Muscle spasm acute Nausea & vomiting acute Rectal prolapse acute Urinary tract infection acut e Chronic obstructive pulmonary disease chronic Hypertension [facility] Work Phone: Evaluation note* Diagnosis Onset Date Resolution Status UTI (urinary tract infection) resolved Acute hypotension resolved Complicated urinary tract infection resolved Debility resolved Infectious encephalopathy re solved Pyelonephritis resolved Sepsis resolved UTI (urinary tract infection) resolved Coronary artery disease acut e Debility acute Edema acute Gastroesophageal reflux disease acute Hemorrhoids acute Hyperlipidemia acute Hypokalemia acute Hypomagnesemia acute Muscle spasm acute Rectal prolapse acute Chronic obstructive pulmonary disease chronic Hypertension chronic Appetite loss resolved Fever resolved Lower GI bleeding resolved Nausea & vomiting resolved Urinary tract infection reso lved [facility] Work Phone: Evaluation noteNo assessment information available [facility] Work Phone: Evaluation note* Diagnosis Onset Date Resolution Status Atherosclerotic heart diseas e of [place] coronary artery without angina pectoris acute Essential hypertension chron ic Hyperlipidemia chronic Fibroadenoma of left breast acute [facility] Work Phone: Evaluation note* Diagnosis Onset Date Resolution Status Fibroadenoma of left breast acute [facility] Work Phone: Evaluation note* Diagnosis Onset Date Resolution Status Urinary tract infection reso lved [facility] Work Phone: Evaluation note* Diagnosis Onset Date Resolution Status Urinary tract infection reso lved Acute dyspnea acute Bronchitis acute Hypoxia acute Left leg DVT acute [facility] Work Phone: Evaluation note* Diagnosis Onset Date Resolution Status Urinary tract infection reso lved Acute dyspnea resolved Hypoxia resolved [facility] Work Phone: Evaluation note* Diagnosis Onset Date Resolution Status Acute dyspnea resolved Hypoxia resolved [facility] Work Phone: Evaluation note* Diagnosis Onset Date Resolution Status Atherosclerotic heart diseas e of [place] coronary artery without angina pectoris acute Essential hypertension chron ic Hyperlipidemia chronic [facility] Work Phone: Evaluation note* Diagnosis Gastroesophageal reflux disease without esophagitis- Primary Esophageal reflux Special screening for malignant neoplasms, colon documented in this encounter [facility] note* Diagnosis Ingrowing nail- Primary Gastroesophageal reflux disease without esophagitis Esophageal reflux Special screening for malignant neoplasms, colon documented in this encounter [facility] note* Diagnosis Multiple adenomatous polyps- Primary Benign neoplasm of unspecified site [facility] Polyp of colon, unspecified part of colon, unspecified type- Primary [facility]* Diagnosis Polyp of colon, unspecified part of colon, unspecified type documented [facility]* Diagnosis Multiple adenomatous polyps- Primary Benign neoplasm of unspecified site documented in this encounter [facility] note* Diagnosis Onset Date Resolution Status Admit Date Atherosclerotic heart diseas e of [place] coronary artery without angina pectoris acute October 22, 2024 10:54am Essential hypertension chronic Ju 2024 10:54am Hyperlipidemia chronic October 22, 2024 10:54am [facility] Work Phone: Evaluation note* Diagnosis Decreased appetite- Primary Anorexia Bilateral upper abdominal pain Abdominal pain, right upper quadrant Nausea Nausea alone Screen for colon cancer Special screening for malignant neoplasms, colon History of colonic polyps Personal history of colonic polyps [facility] Additional Instructions Please follow-up with your primary care doctor as well as Dr. Rodarte. Your x- ray did show degeneration of the knee as well as abnormal calcium deposits consistent with longstanding degeneration of the knee. (This is called chondrocalcinosis). You can continue to pick your hydrocodone at home and also alternate with ibuprofen. You been prescribed a burst of prednisone. Please do not take prednisone and ibuprofen at the same time. Wear Michelle wrap as needed for comfort.[facility] Work Phone: Hospital Discharge instructions Additional Instructions Take antibiotic as directed and follow-up with your PCP. Return for any worsening of your symptoms.[facility] Work Phone: Hospital Discharge instructions Additional Instructions Please return if you are not better, use the Zofran, advance her diet as tolerated. Your repeat urinalysis showed no infection. Continue taking your course of antibiotics until finished.[facility] Work Phone: Hospital Discharge instructions Additional Instructions You have a stable lower GI bleed. Uncertain the cause it may be internal hemorrhoids or possibly diverticulosis versus other causes like a polyp. If this continues she will need another colonoscopy. Follow-up with your doctor. Obviously if he is get heavier bleeding or feeling lightheaded or start passing larger clots you need to return to the emergency department. Your chest x-ray today was normal. Your blood counts were stable and or similar to where they have been in the past. There was no significant loss of blood.[facility] Work Phone: Reason for referral (narrative)* Outpatient Procedure (Routine) - Authorized Specialty Diagnoses / Procedures Referred By Joe cardona Referred To Contact [facility] Diagnoses Gastroesophageal reflux disease without esophagitis Special screening for malignant neoplasms, colon Procedures COLONOSCOPY SCREENING COLONOSCOPY FLX DX W/COLLJ SPEC WHEN Jerri Gates MD [address] [place] [address] [place] [phone] Referral ID Status Reason Start Date Expiration Date Visits Requested Visits Authorized [id number] Authorized Auto-Generat ed Referral 11/03/2023 11/02/2024 1 1 * Outpatient Procedure (Routine) - Authorized Specialty Diagnoses / Procedures Referred By Joe cardona Referred To Contact [facility] Diagnoses Gastroesophageal reflux disease without esophagitis Special screening for malignant neoplasms, colon Procedures EGD DIAGNOSTIC ESOPHAGOGASTRODUODENOS COPY TRANSORAL DIAGNOSTIC Jerri Lemon MD [address] [address] Referral ID Status Reason Start Date Expiration Date Visits Requested Visits Authorized [id number] Authorized Auto-Generat ed Referral 11/03/2023 11/02/2024 1 1 [facility] for referral (narrative)* Outpatient Procedure (Routine) - Closed Specialty Diagnoses / Procedures Referred By Joe cardona Referred To Contact [facility] Diagnoses Gastroesophageal reflux disease without esophagitis Special screening for malignant neoplasms, colon Procedures COLONOSCOPY SCREENING COLONOSCOPY FLX DX W/COLLJ SPEC WHEN Jerri Gates MD [address] [address] Referral ID Status Reason Start Date Expiration Date V isits Requested Visits Authorized [id number] Closed Auto-Generate d Referral 11/03/2023 11/02/2024 1 1 * Outpatient Procedure (Routine) - Closed Specialty Diagnoses / Procedures Referred By Joe cardona Referred To Contact [facility] Diagnoses Gastroesophageal reflux disease without esophagitis Special screening for malignant neoplasms, colon Procedures EGD DIAGNOSTIC ESOPHAGOGASTRODUODENOS COPY TRANSORAL DIAGNOSTIC Jerri Lemon MD [address] [place] [address] [place] [phone] Referral ID Status Reason Start Date Expiration Date V isits Requested Visits Authorized [id number] Closed Auto-Generate d Referral 11/03/2023 11/02/2024 1 1 [facility] for referral (narrative)* Outpatient Procedure (Routine) - New Request Specialty Diagnoses / Procedures Referred By Joe cardona Referred To Contact [facility] Diagnoses Polyp of colon, unspecified part of colon, unspecified type Procedures COLONOSCOPY DIAGNOSTIC COLONOSCOPY FLX DX W/COLLJ SPEC WHEN Radha Serrano MD [id number] [place] [address] Referral ID Status Reason Start Date Expiration Date Visits Requested Visits Authorized [id number] New Request Auto-Generat ed Referral 02/08/2024 02/07/2025 1 1 [facility] for referral (narrative)* Outpatient Procedure (Routine) - Closed Specialty Diagnoses / Procedures Referred By Joe cardona Referred To Contact [facility] Diagnoses Polyp of colon, unspecified part of colon, unspecified type Procedures COLONOSCOPY DIAGNOSTIC COLONOSCOPY FLX DX W/COLLJ SPEC WHEN Radha Serrano MD [address] [address] [place] [address] [place] [phone] Referral ID Status Reason Start Date Expiration Date V isits Requested Visits Authorized [id number] Closed Auto-Generate d Referral 02/08/2024 02/07/2025 1 1 [facility] for referral (narrative)No reason for referral [facility] Work Phone: Reason for visit Narrative* Outpatient Procedure (Routine) - Closed Specialty Diagnoses / Procedures Referred By Joe cardona Referred To Contact [facility] Diagnoses Gastroesophageal reflux disease without esophagitis Special screening for malignant neoplasms, colon Procedures COLONOSCOPY SCREENING COLONOSCOPY FLX DX W/COLLJ SPEC WHEN Jerri Gates MD [address] [address] [facility] [place] [phone] Referral ID Status Reason Start Date Expiration Date V isits Requested Visits Authorized [id number] Closed Auto-Generate d Referral 11/03/2023 11/02/2024 [facility] N[facility]* Outpatient Procedure (Routine) - Closed Specialty Diagnoses / Procedures Referred By Joe cardona Referred To Contact [facility] Diagnoses Polyp of colon, unspecified part of colon, unspecified type Procedures COLONOSCOPY DIAGNOSTIC COLONOSCOPY FLX DX W/COLLJ SPEC WHEN Radha Serrano MD [address] [place] [id number] [facility] [place] [address] [place] [address] Referral ID Status Reason Start Date Expiration Date V isits Requested Visits Authorized [id number] Closed Auto-Generate d Referral 02/08/2024 02/07/2025 1 1 [facility] Summary Purpose Family History No Family History Records Found Relationship Condition Age at Onset Recorded Date/T hemanth grandmother Malignant neoplasm of breast Unknown Advance Directives No Advanced Directives Records Found Advance Directive Response Recorded Date/ Time Living Will No April 22 8:57am Power of Computer Programming Professor No April 22, 2021 8:57am Advance Directive Response Recorded Date/ Time Living Will No January 31, 2022 10:46pm Power of Computer Programming Professor No January 10:46pm Advance Directive Response Recorded Date/ Time Living Will No February 01, 2022 1:18am Power of Computer Programming Professor No January 1:18am Advance Directive Response Recorded Date/ Time Living Will No February 04, 2022 5:30pm Power of Computer Programming Professor No January 5:30pm Advance Directive Response Recorded Date/ Time Living Will No February 09, 2022 9:02am Power of Computer Programming Professor No January 9:02am Advance Directive Response Recorded Date/ Time Name of Medical Power of Computer Programming Professor Paula Castanon February 10, 2022 11:31am Living Will No February 11, 2022 3:18pm Power of Computer Programming Professor No January 3:18pm Advance Directive Response Recorded Date/ Time Name of Medical Power of Computer Programming Professor Paula Castanon February 10, 2022 11:31am Living Will Yes March 16 1:12pm Power of Computer Programming Professor Yes March 16, 2022 1:12pm Advance Directive Response Recorded Date/ Time Name of Medical Power of Computer Programming Professor PAULA CASTANON March 16, 2022 12:12pm Living Will Yes June 30, 023 12:18pm Power of Computer Programming Professor No June 30, 2022 12:18pm Advance Directive Response Recorded Date/ Time Living Will Yes June 30, 2 023 1:18pm Power of Computer Programming Professor No June 30, 2022 1:18pm Advance Directive Response Recorded Date/ Time Living Will Yes December 04, 2022 2:45pm Power of Computer Programming Professor No December 04 2:45pm Advance Directive Response Recorded Date/ Time Living Will No December 18, 2022 6:18am Power of Computer Programming Professor No December 18 6:18am Advance Directive Response Recorded Date/ Time Living Will No January 14, 2 023 4:00pm Power of Computer Programming Professor No January 14, 2023 4:00pm Advance Directive Response Recorded Date/ Time Living Will No January 14 2 023 3:00pm Power of Computer Programming Professor No January 14, 2023 3:00pm Advance Directive Response Recorded Date/ Time Name of Medical Power of Computer Programming Professor paula April 12, 2023 8:53am Living Will Yes April 12, 2 023 8:53am Power of Computer Programming Professor Yes April 12, 2023 8:53am Advance Directive Response Recorded Date/ Time Name of Medical Power of Computer Programming Professor paula April 12, 2023 12:25pm Living Will Yes April 12, 2 023 12:25pm Power of Computer Programming Professor Yes April 12, 2023 12:25pm Advance Directive Response Recorded Date/ Time Name of Medical Power of Computer Programming Professor paula April 12, 2023 1:25pm Living Will No August 06, 2023 2:46pm Power of Computer Programming Professor No August 05 2:46pm Advance Directive Response Recorded Date/ Time Living Will No August 06, 2023 2:46pm Power of Computer Programming Professor No August 05 2:46pm Advance Directive Response Recorded Date/ Time Living Will Yes August 08, 2024 4:36pm Do you have a Healthcare Power of Computer Programming Professor? Yes August 08, 2024 4:36pm Name of Medical Power of Computer Programming Professor daughter August 08, 2024 4:36pm Advance Directive Response Recorded Date/ Time Living Will No August 06, 2023 2:46pm Do you have a Healthcare Power of Computer Programming Professor? No August 06, 2023 2:46pm Living Will Yes August 08, 2024 4:36pm Do you have a Healthcare Power of Computer Programming Professor? Yes August 08, 2024 4:36pm Name of Medical Power of Computer Programming Professor daughter August 08, 2024 4:36pm Chief Complaint and Reason for Visit Chief Complaint HYPERSOMNIA 3 M FU SCREENING Reason for Visit Rapid palpitations Essential hypertension History of coronary artery stent placement Hyperlipidemia Chief Complaint 6 M FU BACK PAIN Reason for Visit Essential hypertensi on History of coronary artery stent placement Hyperlipidemia Chief Complaint 6 M FU BACK PAIN CONCERN FOR UTI UTI Urinary tract infection Reason for Visit Essential hypertensi on History of coronary artery stent placement Hyperlipidemia UTI (urinary tract infection) Acute hypotension Complicated urinary tract infection Infectious encephalopathy Sepsis UTI (urinary tract infection) Chief Complaint 6 M FU BACK PAIN CONCERN FOR UTI UTI Urinary tract infection Urinary tract infection Reason for Visit Essential hypertensi on History of coronary artery stent placement Hyperlipidemia UTI (urinary tract infection) Acute hypotension Complicated urinary tract infection Debility Infectious encephalopathy Pyelonephritis Sepsis UTI (urinary tract infection) Chief Complaint 6 M FU BACK PAIN CONCERN FOR UTI UTI Urinary tract infection Urinary tract infection GENERAL ILLNESS Reason for Visit Essential hypertensi on History of coronary artery stent placement Hyperlipidemia UTI (urinary tract infection) Acute hypotension Complicated urinary tract infection Debility Infectious encephalopathy Pyelonephritis Sepsis UTI (urinary tract infection) Chief Complaint 6 M FU BACK PAIN CONCERN FOR UTI UTI Urinary tract infection Urinary tract infection GENERAL ILLNESS general illness Reason for Visit UTI (urinary tract i nfection) Acute hypotension Complicated urinary tract infection Debility Infectious encephalopathy Pyelonephritis Sepsis UTI (urinary tract infection) Chief Complaint 6 M FU BACK PAIN CONCERN FOR UTI UTI Urinary tract infection Urinary tract infection GENERAL ILLNESS general illness WEAKNESS/FAILURE TO THRIVE FEVER Reason for Visit UTI (urinary tract i nfection) Acute hypotension Complicated urinary tract infection Debility Infectious encephalopathy Pyelonephritis Sepsis UTI (urinary tract infection) Appetite loss Coronary artery disease Debility Edema Fever Gastroesophageal reflux disease Hyperlipidemia Hypokalemia Hypomagnesemia Muscle spasm Nausea & vomiting Urinary tract infection Chronic obstructive pulmonary disease Hypertension Chief Complaint 6 M FU BACK PAIN CONCERN FOR UTI UTI Urinary tract infection Urinary tract infection GENERAL ILLNESS general illness WEAKNESS/FAILURE TO THRIVE WEAKNESS/FAILURE TO THRIVE FEVER WEAKNESS/FAILURE TO THRIVE Reason for Visit UTI (urinary tract i nfection) Acute hypotension Complicated urinary tract infection Debility Infectious encephalopathy Pyelonephritis Sepsis UTI (urinary tract infection) Anemia Appetite loss Coronary artery disease Debility Edema Fever Gastroesophageal reflux disease Hemorrhoids Hyperlipidemia Hypokalemia Hypomagnesemia Lower GI bleeding Muscle spasm Nausea & vomiting Rectal prolapse Urinary tract infection Chronic obstructive pulmonary disease Hypertension Chief Complaint 6 M FU BACK PAIN CONCERN FOR UTI UTI Urinary tract infection Urinary tract infection GENERAL ILLNESS general illness WEAKNESS/FAILURE TO THRIVE WEAKNESS/FAILURE TO THRIVE FEVER WEAKNESS/FAILURE TO THRIVE Reason for Visit UTI (urinary tract i nfection) Acute hypotension Complicated urinary tract infection Debility Infectious encephalopathy Pyelonephritis Sepsis UTI (urinary tract infection) Coronary artery disease Debility Edema Gastroesophageal reflux disease Hemorrhoids Hyperlipidemia Hypokalemia Hypomagnesemia Muscle spasm Rectal prolapse Chronic obstructive pulmonary disease Hypertension Appetite loss Fever Lower GI bleeding Nausea & vomiting Urinary tract infection Chief Complaint LAP ROBOTIC RADICAL NEPHRECTOMY LEFT RIGHT LEG PAIN LEG PAIN Chief Complaint RIGHT LEG PAIN LEG PAIN 6 M FU SCREENING Blood Flow Screening - Community Recreation Programmer F/U Breast Check Reason for Visit Atherosclerotic hear t disease of [place] coronary artery without angina pectoris Essential hypertension Hyperlipidemia Fibroadenoma of left breast Chief Complaint 6 M FU SCREENING Blood Flow Screening - Community Recreation Programmer F/U Breast Check Reason for Visit Atherosclerotic hear t disease of [place] coronary artery without angina pectoris Essential hypertension Hyperlipidemia Fibroadenoma of left breast Chief Complaint 6 M FU SCREENING Blood Flow Screening - Community Recreation Programmer F/U Breast Check pain Reason for Visit Atherosclerotic hear t disease of [place] coronary artery without angina pectoris Essential hypertension Hyperlipidemia Fibroadenoma of left breast Chief Complaint SCREENING Blood Flow Screening - Community Recreation Programmer F/U Breast Check pain left leg pain Reason for Visit Fibroadenoma of left breast Chief Complaint pain left leg pain back Chief Complaint left leg pain back CONCERN FOR UTI E-ORDER Reason for Visit Urinary tract infect ion Chief Complaint left leg pain back CONCERN FOR UTI E-ORDER HYPOXIA Reason for Visit Urinary tract infect ion Chief Complaint left leg pain back CONCERN FOR UTI E-ORDER HYPOXIA Reason for Visit Urinary tract infect ion Acute dyspnea Bronchitis Hypoxia Left leg DVT Chief Complaint left leg pain back CONCERN FOR UTI E-ORDER HYPOXIA HYPOXIA Reason for Visit Urinary tract infect ion Acute dyspnea Bronchitis Hypoxia Left leg DVT Chief Complaint CONCERN FOR UTI E-ORDER HYPOXIA HYPOXIA Reason for Visit Urinary tract infect ion Acute dyspnea Hypoxia Chief Complaint CONCERN FOR UTI E-ORDER HYPOXIA HYPOXIA REASSESS DVT Reason for Visit Urinary tract infect ion Acute dyspnea Hypoxia Chief Complaint HYPOXIA HYPOXIA REASSESS DVT N/V/D Reason for Visit Acute dyspnea Hypoxia Chief Complaint REASSESS DVT N/V/D 1 Y FU SCREENING RIGHT SHOULDER PAIN Reason for Visit Atherosclerotic hear t disease of [place] coronary artery without angina pectoris Essential hypertension Hyperlipidemia Chief Complaint Admit Date LEFT LEG PAIN, R/O DVT April 05 3:39pm LT LEG PAIN April 05, 2024 3:56pm FASTING July 12, 2024 9:15am Chief Complaint Admit Date FASTING July 12, 2024 9:15am gi bleed August 08, 2024 3:4 8pm Chief Complaint Admit Date FASTING July 12, 2024 9:15am gi bleed August 08, 2024 3:4 8pm 1 Y FU/MOVED FROM [facility] October 22, 2024 10 :54am Reason for Visit Admit Date Atherosclerotic heart diseas e of [place] coronary artery without angina pectoris October 22, 2024 10:54am Essential hypertension October 22, 2024 1 0:54am Hyperlipidemia October 22, 2024 10:5 4am Chief Complaint Admit Date gi bleed August 08, 2024 3:4 8pm 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 22, 2024 10 :54am SCREENING November 14, 2024 11:59 am Reason for Referral Specialty Diagnoses / Procedures Referred By Joe cardona Referred To Contact Colon and Rectal Surgery Diagnoses Multiple adenomatous polyps Procedures CONSULT TO COLO-RECTAL SURGERY OFFICE/OUTPATIENT [facility] 60 MINUTES Radha Hester MD [address] [place] [address] Referral ID Status Reason Start Date Expiration Date Visits Requested Visits Authorized [id number] Authorized PCP Requested Referral 11/28/2023 11/27/2024 1 1 Additional Source Comments INFORMATION SOURCE (unrecogn ized section and content) DATE CREATED AUTHOR 04/30/2020 [facility] DATE CREATED AUTHOR AUTHOR'S ORGANIZ ATION [facility] DATE CREATED AUTHOR AUTHOR'S ORGANIZ ATION 12/31/2020 [facility] DATE CREATED AUTHOR AUTHOR'S ORGANIZ ATION 11/22/2024 [facility] DATE CREATED AUTHOR AUTHOR'S ORGANIZ ATION 11/27/2024 [facility] Goals (unrecognized section and content) Goals may be documented in a n alternate sectionGoals may be documented in an alternate sectionGoals may be documented in an alternate sectionGoals may be documented in an alternate sectionGoals may be documented in an alternate sectionGoals may be documented in an alternate sectionGoals may be documented in an alternate sectionGoals may be documented in an alternate sectionGoals may be documented in an alternate sectionGoals may be documented in an alternate sectionGoals may be documented in an alternate sectionGoals may be documented in an alternate sectionGoals may be documented in an alternate sectionGoals may be documented in an alternate sectionGoals may be documented in an alternate sectionGoals may be documented in an alternate sectionGoals may be documented in an alternate sectionGoals may be documented in an alternate section Care Teams (unrecognized sec tion and content) Team Status: Active Member Role Status Dates Dr. Stephanie Partida DO Primary Care Provider Active Team Status: Inactive Member Role Status Dates Noemí Christian , DIRECTOR BANKING-C Primary Care Provider Active Start: May 13, 2024 End: May 13, 2024 Dr. Stephanie Partida DO Attending Provider Active St art: May 13, 2024 End: May 13, 2024 Dr. Stephanie Partida DO Referring Provider Active St art: May 13, 2024 End: May 13, 2024 Team Status: Inactive Member Role Status Dates TAMMY Adkins Primary Care Provider Active Start: July 12, 2024 End: July 12, 2024 Dr. Stephanie Partida DO Attending Provider Active St art: July 12, 2024 End: July 12, 2024 Dr. Stephanie Partida DO Referring Provider Active St art: July 12, 2024 End: July 12, 2024 Team Status: Active Member Role Status Dates Dr. Stephanie Partida DO Primary Care Provider Active Start: August 05, 2024 Dr. Stephanie Partida DO Attending Provider Active St art: August 05, 2024 Team Status: Inactive Member Role Status Dates Dr. Stephanie Partida DO Primary Care Provider Active Start: August 08, 2024 End: August 08, 2024 Dr. Leif Lewis MD Referring Provider Active S tart: August 08, 2024 End: August 08, 2024 Dr. Leif Lewis MD Emergency Provider Active S tart: August 08, 2024 End: August 08, 2024 Team Status: Active Member Role Status Dates Dr. Stephanie Partida DO Family Provider Active Dr. Stephanie Partida DO Primary Care Provider Active Team Status: Active Member Role Status Dates Dr. Stephanie Partida DO Primary Care Provider Active Dr. Saad Moreland MD Attending Provider Active Team Status: Inactive Member Role Status Dates Dr. Stephanie Partida DO Primary Care Provider Active Dr. Hollis Hamilton MD Admit Provid er, Attending Provider, Referring Provider Active Team Status: Inactive Member Role Status Dates Dr. Stephanie Partida DO Primary Care Provider Active Dr. Hollis Hamilton MD Attending Provider Active Team Status: Active Member Role Status Dates Dr. Stephanie Partida DO Primary Care Provider, Attending Kale ambrocio Active Team Status: Inactive Member Role Status Dates Dr. Stephanie Partida DO Primary Care Provider Active Stephanie Prebish DIRECTOR BANKING, DIRECTOR BANKING-C Attending Provider Active Team Status: Inactive Member Role Status Dates Dr. Stephanie Partida DO Primary Care Provider Active Dr. Melba Rangel DO Emergency Provider Active Team Status: Inactive Member Role Status Dates Dr. Stephanie Partida DO Primary Care Provider, Attending P rovider Active Team Status: Inactive Member Role Status Dates Dr. Stephanie Partida DO Primary Care Provider, Referring P rovider Active Dr. Champ Pineda MD Attending Provider Active Team Status: Active Member Role Status Dates Dr. Stephanie Partida DO Primary Care Provider Active Dr. Saad Moreland MD Attending Provider Active Stephanie Felder NP DIRECTOR BANKING-C Referring Provider Active Team Status: Inactive Member Role Status Dates Dr. Stephanie Partida DO Primary Care Provider, Referring P rovider Active Dr. Saad Moreland MD Attending Provider Active Team Status: Active Member Role Status Dates Dr. Stephanie Partida DO Primary Care Provider Active Dr. Jonathan Hammer MD Attending Provider Active Team Status: Inactive Member Role Status Dates Dr. Stephanie Partida DO Primary Care Provider Active Dr. Melba Rangel DO Attending Provider, Emergency P rovider Active Team Status: Inactive Member Role Status Dates Dr. Stephanie Partida DO Primary Care Provider, Attending P rovider Active Dr. Saad Moreland MD Referring Provider Active Team Status: Active Member Role Status Dates Dr. Stephanie Partida DO Primary Care Provider Active Dr. Champ Pineda MD Attending Provider Active Team Status: Inactive Member Role Status Dates Dr. Stephanie Partida DO Primary Care Provider Active Luana Dudley , DIRECTOR BANKING-C Attending Provider, Referring Pro vider Active Team Status: Inactive Member Role Status Dates Dr. Stephanie Partida DO Primary Care Provider Active Dr. Mickey Hdez DO Emergency Provider Active Team Status: Inactive Member Role Status Dates Dr. Stephanie Partida DO Primary Care Provider Active Dr. Moses Bueno MD Emergency Provider Active Team Status: Inactive Member Role Status Dates Dr. Stephanie Partida DO Primary Care Provider Active Dr. Mickey Hdez DO Attending Provider, Emergency Provider Active Team Status: Active Member Role Status Dates Dr. Stephanie Partida DO Primary Care Provider Active Dr. Saad Moreland MD Attending Provider Active Dr. Moses Bueno MD Referring Provider Active Team Status: Inactive Member Role Status Dates Dr. Stephanie Partida DO Primary Care Provider Active Dr. Moses Bueno MD Attending Provider, Emergency Provider Active Team Status: Inactive Member Role Status Dates Dr. Stephanie Partida DO Primary Care Provider Active Dr. Damari Tucker MD Emergency Provider Active Team Status: Inactive Member Role Status Dates Dr. Stephanie Partida DO Primary Care Provider Active Dr. Damari Tucker MD Attending Provider, Emergency Provider Active Team Status: Inactive Member Role Status Dates Dr. Stephanie Partida DO Primary Care Provider Active Dr. Hollis Hamilton MD Attending Provider, Referr ing Provider Active Team Status: Inactive Member Role Status Dates Dr. Stephanie Partida DO Primary Care Provider Active Dr. Pavan Raymond DO Attending Provider Active Team Status: Active Member Role Status Dates Dr. Stephanie Partida DO Family Provider Active Noemíwoodrow Gonzales , DIRECTOR BANKING-C Primary Care Provider Active Team Status: Inactive Member Role Status Dates Dr. Stephanie Partida DO Primary Care Provider, Referring P rovider Active James Bush PA PA Attending Provider Active Team Status: Inactive Member Role Status Dates Dr. Stephanie Partida DO Primary Care Provider Active James VANG PA Attending Provider, Referring Pr ovider Active Team Status: Active Member Role Status Dates Noemí Gonzales , DIRECTOR BANKING-C Primary Care Provider, Attending P rovider Active Team Status: Active Member Role Status Dates Noemí Gonzales , DIRECTOR BANKING-C Primary Care Provider Active Dr. Kirill Johansen DO Emergency Provider Active Dr. Nella Gomes MD Admit Provider, Attending Prov ider Active Team Status: Active Member Role Status Dates Noemíwoodrow Gonzales , DIRECTOR BANKING-C Primary Care Provider Active Dr. Saad Moreland MD Attending Provider Active Team Status: Inactive Member Role Status Dates Noemí Christian , DIRECTOR BANKING-C Primary Care Provider, Attending P rovider Active Team Status: Active Member Role Status Dates Noemí Christian , DIRECTOR BANKING-C Primary Care Provider Active Dr. Champ Pineda MD Attending Provider Active Team Status: Active Member Role Status Dates Noemí Gonzales DIRECTOR BANKING-C Primary Care Provider Active Dr. Kirill Johansen DO Emergency Provider Active Dr. Nella Gomes MD Admit Provider, Attending Provider, Other Provider Active Team Status: Inactive Member Role Status Dates Noemí Gonzales , DIRECTOR BANKING-C Primary Care Provider Active Dr. Kirill Johansen DO Emergency Provider Active Dr. Nella Gomes MD Admit Provider, Attending Prov ider Active Team Status: Active Member Role Status Dates Noemí Gonzales DIRECTOR BANKING-C Primary Care Provider Active Dr. Saad Moreland MD Attending Provider Active Dr. Kirill Johansen , DO Referring Provider Active Team Status: Inactive Member Role Status Dates Noemí Gonzales DIRECTOR BANKING-C Primary Care Provider Active Dr. Damion Wade MD Attending Provider, Referring Provider Active Team Status: Active Member Role Status Dates Dr. Stephanie Partida , Family Provider Active Dr. Pavan Raymond DO Primary Care Provider Active Team Status: Active Member Role Status Dates Dr. Pavan Raymond DO Primary Care Provider Active Dr. Jonathan Hammer MD Attending Provider Active Team Status: Active Member Role Status Dates Noemí Gonzales DIRECTOR BANKING-C Primary Care Provider Active Dr. Pavan Raymond DO Attending Provider, Referring P rovider Active Team Status: Inactive Member Role Status Dates Dr. Pavan Raymond DO Primary Care Provider, Attendin g Provider Active Team Status: Inactive Member Role Status Dates Noemí Gonzales DIRECTOR BANKING-C Primary Care Provider Active Dr. Pavan Raymond DO Attending Provider, Referring P rovider Active Team Status: Active Member Role Status Dates Dr. Pavan Raymond DO Primary Care Provider, Referrin g Provider Active Dr. Jonathan Hammer MD Attending Provider Active Team Status: Active Member Role Status Dates Dr. Pavan Raymond DO Primary Care Prov ider, Attending Provider, Referring Provider Active Team Status: Inactive Member Role Status Dates Dr. Pavan Raymond DO Primary Care Provider Active Dr. Leif Lewis MD Emergency Provider Active Team Status: Inactive Member Role Status Dates Dr. Pavan Raymond DO Primary Care Prov ider, Attending Provider, Referring Provider Active Team Status: Inactive Member Role Status Dates Dr. Pavan Raymond DO Primary Care Provider, Referrin g Provider Active Clifton Joe DIRECTOR BANKING, DIRECTOR BANKING-C Attending Provider Active Team Status: Active Member Role Status Dates Dr. Pavan Raymond DO Primary Care Provider Active NP. Yvonne Alejo Attending Provider, Referring Provid er Active Team Status: Inactive Member Role Status Dates Dr. Pavan Raymond DO Primary Care Provider Active Dr. Leif Lewis MD Attending Provider, Emergency Pro vider Active Team Status: Inactive Member Role Status Dates Dr. Pavan Raymond DO Primary Care Provider Active Dr. Stephanie Partida DO Attending Provider, Referring Prov ider Active Team Status: Inactive Member Role Status Dates Dr. Pavan Raymond DO Primary Care Provider Active DIRECTOR BANKING. Yvonne Alejo Attending Provider, Referring Provid er Active [employer] Pol[employer] Operator Relationship Specialty Start Date End Date Stephanie Partida DO [address] [place] [address] PCP - General Family Medicine 11/30/17 [employer] Operator Relationship Specialty Start Date End Date Stephanie Partida DO [address] [place] [address] PCP - General Family Medicine 11/30/17 [employer] Operator Relationship Specialty Start Date End Date Stephanie Partida DO [address] [place] [address] PCP - General Family Medicine 11/30/17 [employer] Pol[employer] Operator Relationship Specialty Start Date End Date DamienStephanie parisi DO [address] [place] [address] PCP - General Family Medicine 11/30/17 [employer] Operator Relationship Specialty Start Date End Date DamienStephanie parisi DO [address] [place] [address] PCP - General Family Medicine 11/30/17 [employer] Operator Relationship Specialty Start Date End Date Stephanie Partida DO [address] [place] [address] PCP - General Family Medicine 11/30/17 [employer] Relationship Specialty Start Date End Date Stephanie Partida DO [address] [place] [address] PCP - General Family Medicine 11/30/17 [employer] Relationship Specialty Start Date End Date Stephanie Partida DO [address] [place] [address] PCP - General Family Medicine 11/30/17 Team Status: Inactive Member Role Status Dates TAMMY Adkins Primary Care Provider Active Start: April 05, 2024 End: April 05, 2024 TAMMY Adkins Attending Provider Active St art: April 05, 2024 End: April 05, 2024 TAMMY Adkins Referring Provider Active St art: April 05, 2024 End: April 05, 2024 Team Status: Active Member Role Status Dates Dr. Long Harris MD Attending Provider Active Start: April 05, 2024 TAMMY Adkins Referring Provider Active St art: April 05, 2024 Team Status: Inactive Member Role Status Dates Dr. Stephanie Partida DO Primary Care Provider Active Start: August 05, 2024 End: August 05, 2024 Dr. Stephanie Partida DO Attending Provider Active St art: August 05, 2024 End: August 05, 2024 Team Status: Inactive Member Role Status Dates Dr. Stephanie Partida DO Primary Care Provider Active Start: August 08, 2024 End: August 08, 2024 Dr. Leif Lewis MD Attending Provider Active S tart: August 08, 2024 End: August 08, 2024 Dr. Leif Lewis MD Referring Provider Active S tart: August 08, 2024 End: August 08, 2024 Dr. Leif Lewis MD Emergency Provider Active S tart: August 08, 2024 End: August 08, 2024 Team Status: Inactive Member Role Status Dates Dr. Pavan Raymond DO Referring Provider Active Start: October 22, 2024 End: October 22, 2024 Clifton Joe NP, [employer] Attending Provider Active Start: October 22, 2024 End: October 22, 2024 Dr. Stephanie Partida DO Primary Care Provider Active Start: October 22, 2024 End: October 22, 2024 [employer] Relationship Specialty Start Date End Date Stephanie Partida DO [address] [facility] [place] [address] PCP - General Family Medicine 11/30/17 Team Status: Active Member Role/Relationship Status Dates Dr. Stephanie Partida DO Primary Care Provider Active Team Status: Inactive Member Role/Relationship Status Dates Dr. Stephanie Partida DO Primary Care Provider Active Start: August 05, 2024 End: August 05, 2024 Dr. Stephanie Partida DO Attending Provider Active St art: August 05, 2024 End: August 05, 2024 Team Status: Inactive Member Role/Relationship Status Dates Dr. Stephanie Partida DO Primary Care Provider Active Start: August 08, 2024 End: August 08, 2024 Dr. Leif Lewis MD Attending Provider Active S tart: August 08, 2024 End: August 08, 2024 Dr. Leif Lewis MD Referring Provider Active S tart: August 08, 2024 End: August 08, 2024 Dr. Leif Lewis MD Emergency Provider Active S tart: August 08, 2024 End: August 08, 2024 Team Status: Inactive Member Role/Relationship Status Dates Dr. Pavan Raymond DO Referring Provider Active Start: October 22, 2024 End: October 22, 2024 Clifton Joe [employer]ING, [employer] Attending Provider Active Start: October 22, 2024 End: October 22, 2024 Dr. Stephanie Partida DO Primary Care Provider Active Start: October 22, 2024 End: October 22, 2024 Team Status: Inactive Member Role/Relationship Status Dates Dr. Stephanie Partida DO Primary Care Provider Active Start: November 14, 2024 End: November 14, 2024 Dr. Stephanie Partida DO Attending Provider Active St art: November 14, 2024 End: November 14, 2024 Dr. Stephanie Partida DO Referring Provider Active St art: November 14, 2024 End: November 14, 2024 Source Comments (unrecognize d section and content) In the event this informatio n is protected by the [facility] Confidentiality of Alcohol and Drug Abuse Patient Records regulations: The Federal rules restrict any use of the information to criminally investigate or prosecute any alcohol or drug abuse patient.[facility] the event this information is protected by the Federal Confidentiality of Alcohol and Drug Abuse Patient Records regulations: The Federal rules restrict any use of the information to criminally investigate or prosecute any alcohol or drug abuse patient.[facility] the event this information is protected by the Federal Confidentiality of Alcohol and Drug Abuse Patient Records regulations: The Federal rules restrict any use of the information to criminally investigate or prosecute any alcohol or drug abuse patient.[facility] the event this information is protected by the Federal Confidentiality of Alcohol and Drug Abuse Patient Records regulations: The Federal rules restrict any use of the information to criminally investigate or prosecute any alcohol or drug abuse patient.[facility] the event this information is protected by the Federal Confidentiality of Alcohol and Drug Abuse Patient Records regulations: The Federal rules restrict any use of the information to criminally investigate or prosecute any alcohol or drug abuse patient.[facility] the event this information is protected by the Federal Confidentiality of Alcohol and Drug Abuse Patient Records regulations: The Federal rules restrict any use of the information to criminally investigate or prosecute any alcohol or drug abuse patient.[facility] the event this information is protected by the Federal Confidentiality of Alcohol and Drug Abuse Patient Records regulations: The Federal rules restrict any use of the information to criminally investigate or prosecute any alcohol or drug abuse patient.[facility] the event this information is protected by the Federal Confidentiality of Alcohol and Drug Abuse Patient Records regulations: The Federal rules restrict any use of the information to criminally investigate or prosecute any alcohol or drug abuse patient.[facility] the event this information is protected by the Federal Confidentiality of Alcohol and Drug Abuse Patient Records regulations: The Federal rules restrict any use of the information to criminally investigate or prosecute any alcohol or drug abuse patient.[facility] the event this information is protected by the Federal Confidentiality of Alcohol and Drug Abuse Patient Records regulations: The Federal rules restrict any use of the information to criminally investigate or prosecute any alcohol or drug abuse patient.[facility] Reason for Visit (unrecogniz ed section and content) Reason Comments Consult Screening for colon cancer Reason Comments Waitlist Maintenance Reason Comments Follow Up 11/21/23 colonoscopy f ollow up Reason Comments Appointment Reason Comments Established Patient Reason Comments Rectal Bleeding Reason Comments Follow Up FOR RECORDS PERTAINING TO PATIENTS WHO ARE [...] BE BASED ON THE PRIMARY CLINICAL RECORDS. [employer] provides no warranty or guarantee of the accuracy or completeness of information in this document.
[2024-12-15 11:50] VITALS: BP 139/72; PULSE 72; RESP 18; TEMP 36.6; O2SAT 99
== END 2024-12-15 11:51 | disposition home or self-care (01) ==
LOC: ED 11:30
PROVIDERS: Emergency Provider Emergency Medicine; PCP Family Medicine; Visit Provider Emergency Medicine
DX: M25.571 Pain in right ankle and joints of right foot (principal); J44.9 Chronic obstructive pulmonary disease, unspecified; I10 Essential (primary) hypertension; E78.5 Hyperlipidemia, unspecified; Z86.718 Personal history of other venous thrombosis and embolism; M54.9 Dorsalgia, unspecified; Z87.891 Personal history of nicotine dependence; M19.90 Unspecified osteoarthritis, unspecified site; I25.10 Atherosclerotic heart disease of native coronary artery without angina pectoris; K21.9 Gastro-esophageal reflux disease without esophagitis; G47.33 Obstructive sleep apnea (adult) (pediatric); Z95.5 Presence of coronary angioplasty implant and graft
CPT/HCPCS: 73610; 96372; 99282; A4216

== ENCOUNTER → 2024-12-27 | Outpatient (CLI) | payer MEDICARE, OTHER, SELFPAY ==
[2024-12-27 15:50] LABS: Anion Gap 13 (5-15); BUN 34 mg/dL (4-19); BUN/Creat Ratio 29.5 RATIO (10-20); Calcium,Total 9.9 mg/dL (7.6-11.0); Carbon Dioxide 24.2 mmol/L (21.0-32.0); Chloride 103 mmol/L (98-108); Glucose 154 mg/dL (70-99); Potassium 5.1 mmol/L (3.3-5.1)
== END | disposition home or self-care (01) ==
LOC: MTLAB 13:45
PROVIDERS: PCP Family Medicine; Referring Provider Urology; Visit Provider Urology
DX: N28.9 Disorder of kidney and ureter, unspecified (principal)
CPT/HCPCS: 36415; 80048

== ENCOUNTER → 2025-02-21 | Outpatient (CLI) | payer MEDICARE, OTHER, SELFPAY ==
--- NOTE | 2025-02-21 11:13 | RAD_ITS ---
EXAM: XR Lumbosacral Spine Flexion/Extension Only, 2 or 3 Views CLINICAL INDICATION: DEGENERATIVE DISC DISEASE TECHNIQUE: Lateral flexion/extension views of the lumbar spine and sacrum. COMPARISON: No relevant prior studies available. FINDINGS: VERTEBRAE: S shaped scoliosis of the thoracolumbar spine. No acute fracture. SACRUM/COCCYX: Unremarkable as visualized. No acute fracture. DISC SPACES: No acute findings. No significant narrowing. SOFT TISSUES: Unremarkable. VASCULATURE: Scattered calcified atherosclerotic disease of aorta. RAD/L/S Spine Min 4 Views IMPRESSION: Degenerative changes as above. Reading Location: [id number]
== END | disposition home or self-care (01) ==
LOC: MTRAD 11:02
PROVIDERS: PCP Family Medicine; Referring Provider Clinical Nurse Specialist Adult Health; Visit Provider Clinical Nurse Specialist Adult Health
DX: M51.369 Other intervertebral disc degeneration, lumbar region without mention of lumbar back pain or lower extremity pain (principal)
CPT/HCPCS: 72110

== ENCOUNTER → 2025-03-20 | Outpatient (CLI) | payer MEDICARE, OTHER, SELFPAY | END | disposition home or self-care (01) | LOC: PSN 11:52 | PROVIDERS: PCP Family Medicine; Referring Provider Physician Assistant Medical; Visit Provider Physician Assistant Medical | DX: R00.2 Palpitations (principal) | CPT/HCPCS: 93225; 93226 ==

== ENCOUNTER → 2025-04-07 | Outpatient (CLI) | payer MEDICARE, OTHER, SELFPAY ==
[2025-04-07 17:39] LABS: Hematocrit 40.0 % (37-47); Hemoglobin 13.0 g/dL (12.0-15.0); Immature Granulocytes Count 0.020 X10^3/uL (0.0-0.0); Mean Corp Hgb Conc 32.5 g/dL (32-36); Mean Corpuscular Volume 95.9 fL (81-99); Mean Platelet Vol. 10.5 fl (6.2-12.0); NRBC Flagged by Analyzer 0 % (0-5); Platelet Count 203 K/mm3 (150-450); RBC Distribution Width CV 12.6 % (11.6-14.6); RBC Distribution Width SD 44.9 fl (35.1-43.9); Red Blood Count 4.17 M/mm3 (4.2-5.4); White Blood Count 7.2 K/mm3 (4.4-11.0)
[2025-04-07 18:41] LABS: AST(SGOT) 27 U/L (<=31); Alanine Aminotransfer ALT/SGPT 13 U/L (<=34); Albumin, Serum 4.3 g/dL (3.4-4.8); Alkaline Phosphatase 65 U/L (35-104); Anion Gap 16 (5-15); BUN 25 mg/dL (4-19); BUN/Creat Ratio 21.7 RATIO (10-20); Calcium,Total 10.3 mg/dL (7.6-11.0); Carbon Dioxide 21.3 mmol/L (21.0-32.0); Chloride 104 mmol/L (98-108); Ferritin 96 ng/mL (22-378); Globulin 2.9 g/dL (2.2-4.2); Glucose 98 mg/dL (70-99); Iron 89 ug/dL (50-170); Potassium 4.1 mmol/L (3.3-5.1); Vitamin D,25 Hydroxy 106.0 ng/mL (30-100)
== END | disposition home or self-care (01) ==
LOC: BFHLAB 14:32
PROVIDERS: PCP Family Medicine; Visit Provider Family Medicine
DX: I10 Essential (primary) hypertension (principal); E78.5 Hyperlipidemia, unspecified; E55.9 Vitamin D deficiency, unspecified; E61.1 Iron deficiency
CPT/HCPCS: 36415; 80053; 82306; 82728; 83540; 85025